=== PATIENT | female | born 1955 | race Caucasian/White ===

== ENCOUNTER 2018-02-26 00:51 | Inpatient (IN) | payer SELFPAY ==
[2018-02-26] MEDS ORDERED: Albuterol Sulfate 2.5 mg/3 ml Neb ONE (01:03)
[2018-02-26] MEDS ORDERED: Sodium Chloride For Inhalation 0.9% 3 ML NEB ONE (01:04)
[2018-02-26] MEDS ORDERED: Albuterol Sulfate 2.5 mg/0.5 ml Neb ONE (01:04)
[2018-02-26 01:30] LABS: pH, Arterial 7.08 (7.35-7.45)
[2018-02-26 01:31] LABS: Base Excess (BEa) 0.6 mEq/L (0 (+/-) 2.5); CO2 Tension 113.5 mmHg (35.0-45.0); Hematocrit-ABG 54.3 % (36.0-47.0); Hemoglobin (Hb) 14.5 g/dL (12.0-16.0); O2 Tension (PaO2) 123.1 mmHg (80.0-100.0)
[2018-02-26 01:31] LABS: Mean Corpuscular HGB CONC 28.7 g/dL (32.0-36.0); Mean Corpuscular Hemoglobin 24.3 pg (27.0-31.0); Mean Corpuscular Volume 84.8 fl (81.0-99.0); Mean Platelet Volume 8.6 fL (7.4-10.4); Platelet Count 194 thou/uL (130-400); RBC Distribution Width 18.8 % (11.5-14.5); Red Blood Cell (RBC) Count 6.16 mill/uL (4.20-5.40); White Blood Cell (WBC) Count 8.7 thou/uL (4.8-10.8)
[2018-02-26 01:32] LABS: ALV-art Gradient 439.025 (0-20); Analyzer IN Cardio ER; Calcium, Ionized 1.3 mmol/L (1.12-1.30); Puncture Site RRA
[2018-02-26 01:35] LABS: Bilirubin Moderate (Negative); Blood, Urine Moderate (Negative); Clarity CLOUDY (Clear); Glucose, Urine (Dipstick) Negative (Negative); Leukocyte Small (Negative); Nitrite Negative (Negative); Protein, Urine (Dipstick) 100 mg/dL (Neg-Trace); Specific Gravity, Urine 1.024 (1.002-1.036)
[2018-02-26 01:37] LABS: Bacteria/HPF 3+ HPF (None Seen); WBC/HPF 21-50 HPF (0-3)
[2018-02-26 01:39] LABS: Pathc Cast-AUWi Flag 10.61 (0-2.49)
[2018-02-26 01:39] LABS: Band 2 % (5-11); Eosinophils 2 % (0-10); Lymphocytes 23 % (21-51); MDiff Complete? YES; Monocytes 17 % (0-10); Neutrophil 56 % (42-75)
[2018-02-26 01:43] LABS: ALT (SGPT) Less than 7 U/L (8-55); AST (SGOT) 22 U/L (5-34); Albumin 3.8 g/dL (3.4-4.8); Alkaline Phosphatase 50 U/L (40-150); Anion Gap 14 mmol/L (10-20); BUN (Urea Nitrogen) 26 mg/dL (9.8-20.1); Bilirubin, Total 0.7 mg/dL (0.2-1.2); CK (CPK) 45 U/L (29-168); Calc. Creatinine Clearance 0 mL/min (70-130); Calcium 9.3 mg/dL (7.8-10.44); Carbon Dioxide 31 mmol/L (23-31); Chloride 101 mmol/L (98-107); Estimated GFR-MDRD 43; Glucose 130 mg/dL (80-115); Lipase 37 U/L (8-78); Potassium 3.9 mmol/L (3.5-5.1); Protein, Total 7.8 g/dL (6.0-8.3); Sodium 142 mmol/L (136-145)
[2018-02-26 01:46] LABS: CKMB 2.9 ng/mL (0-6.6); Troponin I 0.177 ng/mL (< 0.028)
[2018-02-26 01:51] LABS: Renal Epithelial 0-3 HPF (0-3)
[2018-02-26 01:53] LABS: Other Casts/LPF 4-6 WBC CASTS LPF (0-3 Hyaline)
[2018-02-26] MEDS ORDERED: fentaNYL Citrate/PF 2,000 MCG in Sodium Chloride 0.9% 60 ML IV SCH ×2 (02:00→04:00)
[2018-02-26] MEDS ORDERED: Furosemide 40 MG/4 ML VIAL ONE (02:14)
[2018-02-26 03:35] LABS: Base Excess (BEa) 1.6 mEq/L (0 (+/-) 2.5); CO2 Tension 51.5 mmHg (35.0-45.0); Hematocrit-ABG 46.2 % (36.0-47.0); Hemoglobin (Hb) 13.1 g/dL (12.0-16.0); O2 Tension (PaO2) 80.7 mmHg (80.0-100.0); pH, Arterial 7.35 (7.35-7.45)
[2018-02-26 03:36] LABS: ALV-art Gradient 279.725 (0-20); Calcium, Ionized 1.2 mmol/L (1.12-1.30); Puncture Site RRA
[2018-02-26] MEDS ORDERED: Morphine 4 MG/ML VIAL SLOW IVP PRN (03:47)
[2018-02-26] MEDS ORDERED: Propofol BOLUS 1,000 MG/100 ML VIAL IV PRN ×2 (03:47→04:00)
[2018-02-26] MEDS ORDERED: Lorazepam 2 MG/ML VIAL SLOW IVP PRN (03:47)
[2018-02-26] MEDS ORDERED: Fentanyl BOLUS 250 ML IVPB PRN ×2 (03:47→04:00)
[2018-02-26] MEDS ORDERED: Ventilator Sedation Protocol 1 EACH FS ONE (03:53)
[2018-02-26] MEDS ORDERED: Acetaminophen 500 MG TAB PER TUBE PRN (03:53)
[2018-02-26] MEDS ORDERED: CCU Electrolyte Replacement 1 EACH FS ONE (03:53)
[2018-02-26] MEDS ORDERED: Ondansetron HCl/PF 4 MG/2 ML Vial IVP PRN (03:53)
[2018-02-26] MEDS ORDERED: Potassium Phosphate 9 MMOL in Sodium Chloride 0.9% 100 ML IVPB PRN (03:59)
[2018-02-26] MEDS ORDERED: Magnesium Oxide 400 MG TAB PO PRN ×2 (03:59)
[2018-02-26] MEDS ORDERED: Potassium Chloride 20 MEQ TAB PO PRN (03:59)
[2018-02-26] MEDS ORDERED: Potassium Phosphate 12 MMOL in Sodium Chloride 0.9% 250 ML 250 ML IV PRN (03:59)
[2018-02-26] MEDS ORDERED: Potassium Phosphate 15 MMOL in Sodium Chloride 0.9% 250 ML 250 ML IV PRN (03:59)
[2018-02-26] MEDS ORDERED: Magnesium 2 GM/NS 0.9% 100 ML 2 GM in Premix Bag 1 BAG IVPB PRN (03:59)
[2018-02-26] MEDS ORDERED: Potassium Chloride 40 MEQ in Premix Bag 1 BAG IVPB PRN (03:59)
[2018-02-26] MEDS ORDERED: CCU ELECTROLYTE REPLACEMENT PROTOCOL FS PRN (03:59)
[2018-02-26] MEDS ORDERED: Nitroglycerin 2% Ointment 1 INCH/1 GM Packet TOP SCH (04:00)
[2018-02-26] MEDS: cefTRIAXone\\ROCEPHIN 2 GM in Sodium Chloride 0.9% 100 ML IVPB SCH (04:47)
[2018-02-26] MEDS: Furosemide 40 MG/4 ML VIAL SLOW IVP SCH ×2 (04:47→13:45)
[2018-02-26 07:21] LABS: Actual Bicarbonate (HCO3a) 28.9 mEq/L (22-26); Base Excess (BEa) 5.1 mEq/L (0 (+/-) 2.5); CO2 Tension 39.6 mmHg (35.0-45.0); Hematocrit-ABG 46.7 % (36.0-47.0); O2 Tension (PaO2) 70.9 mmHg (80.0-100.0); pH, Arterial 7.48 (7.35-7.45)
[2018-02-26 07:22] LABS: Calcium, Ionized 1.2 mmol/L (1.12-1.30); Hemoglobin (Hb) 13.6 g/dL (12.0-16.0)
[2018-02-26 07:23] LABS: Puncture Site LRA
--- NOTE | 2018-02-26 07:49 | HP ---
DATE OF ADMISSION: 02/26/2018 PRIMARY CARE PROVIDER: Patrick pittman. CHIEF COMPLAINT: Shortness of breath. HISTORY OF PRESENT ILLNESS: This is a 62-year-old female who presents to [facility] in transfer from [facility] with severe shortness of breath, requir ing BiPAP, noninvasive mechanical ventilation. The history is obtained after discussions with the ER attending as well as the patient's 2 sons at the bedside as the patient is currently on mechanical v entilation and unable to respond. The patient apparently had been experiencing increasing shortness of breath over the last several days; however, the sons report the patient was on home oxygen using a face mask, but the sons were unclear on how often and frequent the patient use the oxygen. 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 No specific history of recent fever, exposure history. Review of the record shows t hat EMS personnel arrived to find the patient covered in urine and feces with 70% O2 saturation on 15 liters of oxygen. The patient apparently was told she needed to be intubated at that time and was p laced on CPAP. The patient received subcutaneous Lovenox, Zofran, and 1 liter of intravenous normal saline and underwent evaluation in the [facility]. The patient was speaking shor t phrases of 1-3 words, but was alert and oriented. The patient underwent general evaluation with el evated D-dimer noted on initial exam. The patient was scheduled for CT of the chest; however, would not fit in the CT scanner due to morbid obesity. The patient was referred to [facility] for ventilation perfusion scan as initial concern for pulmonary embolus given the patient's overall body habitus and presentation. The patient received the Lovenox empirically as stated previously. In th e emergency room at [facility], the patient was markedly dyspneic with O2 saturations in the 70s with accessory muscle use. Initial ABG at [facility] showed a pH of 7.08 and a pCO2 of 113.5. Discussions were had with the patient regarding the need for intubation, at which point the patient decided to proceed with this procedure. The patient underwent intubation in the emergency ro om with a 7.0 endotracheal tube at 22 cm. The patient was continued on mechanical ventilation and re ferred to the Hospitalist Service for admission. PAST MEDICAL HISTORY: 1. Morbid obesity. 2. Question of obstructive sleep apnea. 3. Chronic hypoxic respiratory failure. 4. Question of chronic kidney disease, stage 2-3. PAST SURGICAL HISTORY: Reviewed and negative. CURRENT MEDICATIONS: According to the patient's son, she takes supplements, no prescription medicati on. ALLERGIES: No known drug allergies. FAMILY HISTORY: No inheritable diseases per family report. SOCIAL HISTORY: The patient resides in [place], [place]. 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 No current al cohol, tobacco, or illicit drug use. REVIEW OF SYSTEMS: Unobtainable as the patient is on current mechanical ventilation and sedated. PHYSICAL EXAMINATION: VITAL SIGNS: Currently, blood pressure 109/63, pulse 87, respiratory rate 16, temperature 96.1 degre es Fahrenheit, O2 saturation 94% on 80% FiO2, SIMV. GENERAL APPEARANCE: This is a morbidly obese female, on current mechanical ventilation, sedate, obtu nded. HEENT: Pupils are minimally reactive to light and accommodation. Extraocular muscles are intact. N o scleral icterus, no conjunctival injection. Nares patent. OP is clear with increased secretions a round the endotracheal tube. NECK: Supple. Landmarks are difficult to palpate. No JVD noted. No carotid bruits. No palpable m ass. CHEST: Diminished breath sounds in all lung giron. Coarse breath sounds with expiratory wheeze not ed. Faint crackles bilaterally. CARDIOVASCULAR: S1, S2 with distant heart sounds. No murmur, gallop, or rub. ABDOMEN: Morbidly obese with landmarks difficult to palpate. No gross mass appreciated. No rebound noted. EXTREMITIES: Tense edema of bilateral lower extremities to the knees. Pulses palpable distally at t he dorsalis pedis, posterior tibial, and popliteal arteries bilaterally. GENITOURINARY: Tolbert catheter in place with dark shelli urine. NEUROLOGIC: Obtunded, on current sedation and mechanical ventilation. PERTINENT LABORATORY AND X-RAY FINDINGS: Sodium 142, potassium 3.9, chloride 101, CO2 of 31, BUN 26, creatinine 1.26, estimated GFR of 43, glucose 130, lactic acid level 1.3, calcium 9.3, AST 22, ALT l ess than 7, alkaline phosphatase 50, total CK of 45. Troponin I 0.177. BNP 911. Albumin 3.8, lipas e 37. CBC showed a white blood cell count of 8.7, hemoglobin 15, hematocrit 52, platelet count 194 w ith normal differential. D-dimer 4.14. ABG dated 02/26/2018 at 1:22 a.m. showed pH of 7.08, pCO2 of 113.5, pO2 of 123, bicarbonate 33, and O2 saturation 97% on 100% FiO2, BiPAP mode. Urinalysis, posi tive for protein, moderate blood, moderate bilirubin with small leukocyte esterase. Urine microscopy showed 7-10 rbc's per high-power field, 21-50 wbc's per high-power field, 3+ bacteria noted. Portab le chest x-ray dated 02/26/2018 by my interpretation shows poor inspiratory effort with patchy infilt rates bilaterally concerning for edema. Rotated film. Poor quality. EKG dated 02/26/2018 by my int erpretation shows sinus mechanism with heart rates in the 90s. Attenuated R waves noted in the preco rdial leads. Right bundle-branch block pattern noted. Normal axis. No acute ST-T wave changes appr eciated. ASSESSMENT AND PLAN: 1. Acute on chronic hypercapnic respiratory failure. The patient will be admitted to the Critical C are Unit. We will continue mechanical ventilation with SIMV at FiO2 of 80%. Consult Pulmonary Criti jason Care Service in the a.m. Suspect multifactorial given the patient's severe morbid obesity and li nohemy chronic hypercapnia. Continue aggressive pulmonary supportive measures. Repeat ABG in the a.m. 2. Acute congestive heart failure exacerbation. Suspect multifactorial congestive heart failure giv en the patient's morbid obesity. Check 2D transthoracic echocardiogram in the a.m. Continue Lasix 4 0 mg IV b.i.d. Consult Cardiology Service in the a.m. for further evaluation. Continue aspirin 325 mg daily. 3. Acute kidney injury. We will continue to monitor serial creatinines. Avoid nephrotoxic agents a nd contrast media. Watch renal function closely in the context of ongoing diuretic therapy. 4. Demand ischemia. Suspect demand state in the context of current presentation and respiratory kathy lure. Lovenox was given initially in the emergency department. Continue to trend serial troponin I. Consult Cardiology Service in the a.m. 5. Morbid obesity. Turning protocol. Low air loss mattress. Consider dietitian consult when stabi lized. 6. Urinary tract infection. Suspected given urinalysis findings. Await final urine culture results . Initiate Rocephin 2 grams IV q.24 hours. 7. Prophylaxis. Sequential compression devices held due to bilateral lower extremity edema. Loveno x 40 mg subcutaneously daily. Pepcid 20 mg IV q.12 hours. Critical care unit sedation protocol. Cr itical care unit electrolyte replacement protocol. 8. Code status is FULL. Surrogate medical decision maker is the patient's son. Total critical care time is 45 minutes.
--- NOTE | 2018-02-26 07:51 | RAD ---
CHEST 1 VIEW: Date: 02/26/18 HISTORY: Respiratory failure. COMPARISON: Chest radiograph from same date. FINDINGS: Extensive perihilar opacities. Heart size is enlarged. Layering left effusion. Extensive perihilar op acities. IMPRESSION: Cardiomegaly with layering effusion and perihilar opacities may reflect edema, hemorrhage, or ARDS. POS: [facility]
[2018-02-26] MEDS ORDERED: Aspirin 325 MG TAB PO SCH (08:00)
[2018-02-26] MEDS: Propofol 1,000 MG/100 ML VIAL IV PRN ×5 (08:05→23:44)
[2018-02-26] MEDS: Aspirin 325 MG TAB PER TUBE SCH (08:05)
--- NOTE | 2018-02-26 08:10 | RAD ---
CHEST 1 VIEW: HISTORY: Emergency exam. Intubation. COMPARISON: Radiograph same day. FINDINGS: The patient is intubated with endotracheal tube tip below the clavicles. Enteric tube was placed wit h tip below the diaphragm but out of field of view. Extensive perihilar airspace opacities and peripheral opacities, somewhat worsened. Elevation of lef t hemidiaphragm. Cardiomegaly. IMPRESSION: 1. Endotracheal tube tip in good position. 2. Enteric tube tip below the diaphragm but out of the field of view. 3. Cardiomegaly. 4. Extensive hilar opacities and peripheral opacities suggesting edema, infection, or adult respirat ory distress syndrome. Followup recommended. 5. Elevated left hemidiaphragm. 6. Left basilar opacity may reflect focal infection. Malignancy cannot be excluded. POS: [facility]
--- NOTE | 2018-02-26 08:18 | RAD ---
PORTABLE CHEST: Date: 02/26/18 COMPARISON: Earlier exam same date. HISTORY: Respiratory failure, on mechanical ventilation. FINDINGS: Film technique is suboptimal. Heart size is enlarged. Patient is rotated on this examination. Endotra cheal tube and NG tubes appear to be in satisfactory position. Parenchymal lung changes are felt to b e fairly stable as compared to the prior exam. IMPRESSION: Essentially stable exam. POS: [facility]
[2018-02-26] MEDS ORDERED: Enoxaparin Sodium 40 MG/0.4 ML SYRINGE SC SCH (09:00)
[2018-02-26] MEDS ORDERED: Famotidine/PF 20 mg/2ml Vial SLOW IVP SCH (09:00)
[2018-02-26] MEDS ORDERED: Vancomycin HCl 1 GM in Premix Bag 1 BAG IVPB SCH (09:00)
[2018-02-26] MEDS ORDERED: Furosemide 40 MG/4 ML VIAL SLOW IVP SCH (09:00)
--- NOTE | 2018-02-26 10:02 | ULT ---
BILATERAL LOWER EXTREMITY DUPLEX EXAM: History: Bilateral lower extremity pain and edema. FINDINGS: Real-time color doppler evaluation of the right and left lower extremities were performed from groin to calf. This includes evaluation of the common femoral, superficial, profunda femoral, saphenous, po pliteal, and trifurcation veins. Exam is very limited due to patient's inability to cooperate in moving and body habitus. There are po rtions of the veins were not visualized including the mid and distal right superficial femoral vein a nd mid left superficial femoral vein. Augmentation cannot be performed and popliteal regions could no t be well evaluated due to inability to position the patient. There was flow demonstrated within the vessels without obvious DVT. IMPRESSION: Extremely limited examination. No definitive evidence of DVT of either lower extremity. POS: [facility]
[2018-02-26] MEDS: Famotidine 40 MG/4 ML VIAL SLOW IVP SCH ×2 (10:13→21:20)
--- NOTE | 2018-02-26 10:42 | CON ---
DATE OF CONSULTATION: 02/26/2018 Thirty minutes critical care time. REASON FOR CONSULTATION: Acute respiratory failure requiring mechanical ventilation. HISTORY OF PRESENT ILLNESS: This is a 62-year-old female who was transferred to this facility from [facility]. She had been on noninvasive ventilation there. I believe by the time she got here, she wa s still profusely hypercapnic and was subsequently intubated by the emergency room physician. What information I have is taken from reading the history and physical and the emergency room physici an's notes that the patient was intubated. There is no family available here to give history. From what I can discern, she is morbidly obese. She has sleep apnea, but does not wear her CPAP at h ome. I also got the impression that she has been intubated previously. PAST MEDICAL HISTORY: 1. Morbid obesity. 2. Obstructive sleep apnea. 3. Chronic kidney disease. PAST SURGICAL HISTORY: Negative. MEDICATIONS PRIOR TO ADMISSION: None. ALLERGIES: None. FAMILY MEDICAL HISTORY: Unremarkable. SOCIAL HISTORY: Apparently does not smoke, drink alcohol, does not use illicit drugs. REVIEW OF SYSTEMS: Unobtainable as patient is currently on mechanical ventilation. PHYSICAL EXAMINATION: VITAL SIGNS: Weight looks to be at least 600 pounds, height 5 foot 4, temperature 95.9, pulse 68, bl ood pressure 124/82, O2 sat 100%. GENERAL: She is a morbidly obese female who is intubated. She is awake and tries to mouth around th e endotracheal tube. HEENT: Pupils react. Sclerae icteric. Oropharynx class 4 Mallampati airway. NECK: No adenopathy, no JVD. LUNGS: Coarse breath sounds bilaterally. CARDIOVASCULAR: S1, S2 distant. ABDOMEN: Morbidly obese. EXTREMITIES: Multiple pannus folds, severe chronic stasis changes. LABORATORY DATA: White blood cell count 8.7, hematocrit 52, platelet count 194. PH 7.48, pCO2 of 39 , pO2 70 on SIMV rate 20, tidal volume 5, PEEP 5, FiO2 60%. Sodium 142, potassium 3.9, chloride 101, CO2 31, BUN 26, creatinine 1.2, glucose 130. BMP 911. Troponin 0.18. Chest x-ray shows poor penetration. She has cardiomegaly, probably a grossly enlarged right ventricl e. She has pulmonary edema bilaterally. ASSESSMENT: 1. Likely biventricular congestive heart failure. 2. Pulmonary edema. 3. Morbid obesity. 4. Sleep apnea. 5. Question of concurrent pneumonia. PLAN: 1. I have reviewed the orders and agree with aggressive diuresis. 2. Continue mechanical ventilation at current settings and follow serial ABGs. 3. Agree with empiric antibiotics. 4. May ultimately need a tracheostomy since she is noncompliant with noninvasive ventilation.
[2018-02-26] MEDS ORDERED: VANCOMYCIN IVPB PRN (12:49)
[2018-02-26 15:05] LABS: Platelet Count 143 thou/uL (130-400)
[2018-02-26] MEDS: Heparin 10,000 UNITS/ 10 ML VIAL SLOW IVP SCH (16:14)
[2018-02-26] MEDS: Heparin 25,000 units/D5W 500 ML IVPB SCH (16:15)
--- NOTE | 2018-02-26 17:25 | CON ---
DATE OF CONSULTATION: 02/26/2018 CARDIOLOGY CONSULTATION REASON FOR CONSULTATION: Heart failure. HISTORY OF PRESENT ILLNESS: Ms. Sauceda is a 62-year-old white female who comes to the hospital for r espiratory insufficiency. She was at the [facility] for a few days with noninvasive ventilat ion, but became even worse with her hypercapnia and subsequently had to be intubated and transferred here emergently. She currently remains sedated and intubated. Her son is in the room. He tells me he has had this same scenario happened several times in the past and has always been blamed on her mo rbid obesity. She has a history of severe obstructive sleep apnea and apparently there are some comp liance issues with her CPAP. Son tells me that she has in fact been intubated in the past. PAST MEDICAL HISTORY: 1. Morbid obesity, BMI of 103. This is with a calculated weight of about 600 pounds. She is 5 feet and 4 inches. Son tells me she has been gaining weight in the last 6-8 months. 2. Severe obstructive sleep apnea. 3. Chronic kidney disease. PAST SURGICAL HISTORY: Negative. OUTPATIENT MEDICATIONS: None. ALLERGIES: No known drug allergies. FAMILY HISTORY: Noncontributory. SOCIAL HISTORY: No alcohol, tobacco or drugs per chart. REVIEW OF SYSTEMS: Unobtainable as patient is sedated and intubated. PHYSICAL EXAMINATION: VITAL SIGNS: Temperature 98.6, pulse 60, respiratory rate 20, satting 92% on 50% FiO2, blood pressur e 126/74. GENERAL: Sedated and intubated, she is morbidly obese. HEENT: Normocephalic. NECK: Short, unable to evaluate for JVD. LUNGS: Coarse anteriorly, but distant heart sounds. CARDIOVASCULAR: Distant heart sounds. S1 and S2. Cannot appreciate any murmurs. ABDOMEN: Prominent. Cannot hear any bowel sounds, but most likely due to her weight. EXTREMITIES: There are skin changes from chronic edema as well as weight. She has 2-3+ lower extrem ity edema. SKIN: Warm and dry. LABORATORY DATA: Laboratory work was reviewed. White count of 8.7, hemoglobin of 15, hematocrit 52, and platelet count of 194. Coags were reviewed. D-dimer was extremely high at 4.1. ABGs were revi ewed. Chemistry was reviewed. BUN 26, creatinine 1.2 with GFR 43. Troponin has been 0.17, 0.17, 0. 18 and BNP of 911. Albumin was 3.8. UA showed moderate blood, moderate bilirubin, 21-50 white cells , 7-10 red cells, and 3+ bacteria. IMAGING DATA: Echocardiogram was reviewed, EF was hyperdynamic, but was D-shaped left ventricle on b oth systole and diastole consistent with right ventricular volume and pressure overload. Her right v entricle was severely dilated with reduced RV systolic function. However, the pressures were not ter ribly high at 45 mmHg. There was moderate PI as well. Chest x-ray was reviewed. ASSESSMENT: 1. Acute on chronic diastolic heart failure. 2. Most likely chronic right ventricular dysfunction. 3. Cannot exclude acute pulmonary embolism. 4. Morbid obesity with body mass index of 103. 5. Acute hypoxic hypercapnic respiratory insufficiency requiring mechanical ventilation. 6. Severe sleep apnea, noncompliant. PLAN: 1. Agree with IV diuresis. She has a lot of edema most likely from RV failure from her severe sleep apnea and obesity. At this time, I cannot exclude an acute pulmonary embolism as the cause of her d ecompensation and I discussed this with Dr. Rice and diagnostic yield of CT scan or V/Q scan will be extremely low and may not even be doable secondary to her weight, so we would have to just start f ull anticoagulation in case this were to be the problem. 2. We will start heparin drip per PE protocol. 3. Patient is severely ill. would not be unexpected. Thank you for letting us to participate in the care of your patient. We will follow. Over 45 minutes of critical care were delivered at bedside.
[2018-02-26 21:57] LABS: PTT 242.5 SEC (22.9-36.1)
[2018-02-27] MEDS: Propofol 1,000 MG/100 ML VIAL IV PRN ×5 (02:41→21:45)
[2018-02-27] MEDS: Lorazepam 2 MG/ML VIAL SLOW IVP PRN ×4 (02:41→21:45)
[2018-02-27] MEDS: cefTRIAXone\\ROCEPHIN 2 GM in Sodium Chloride 0.9% 100 ML IVPB SCH (04:15)
[2018-02-27 05:19] LABS: ALT (SGPT) Less than 7 U/L (8-55); AST (SGOT) 18 U/L (5-34); Albumin 2.7 g/dL (3.4-4.8); Alkaline Phosphatase 43 U/L (40-150); Anion Gap 17 mmol/L (10-20); BUN (Urea Nitrogen) 27 mg/dL (9.8-20.1); Bilirubin, Total 1.2 mg/dL (0.2-1.2); Calc. Creatinine Clearance 180 mL/min (70-130); Calcium 8.6 mg/dL (7.8-10.44); Carbon Dioxide 26 mmol/L (23-31); Chloride 103 mmol/L (98-107); Estimated GFR-MDRD 38; Glucose 81 mg/dL (80-115); Potassium 2.9 mmol/L (3.5-5.1); Protein, Total 5.7 g/dL (6.0-8.3); Sodium 143 mmol/L (136-145)
[2018-02-27] MEDS: Furosemide 40 MG/4 ML VIAL SLOW IVP SCH ×2 (05:23→13:11)
[2018-02-27] MEDS: Potassium Chloride 40 MEQ in Sodium Chloride 0.9% 250 ML 250 ML IVPB PRN (06:13)
[2018-02-27 06:24] LABS: Anisocytosis SLIGHT = 6-15 cells (100X) (0-5/hpf); Band 11 % (5-11); Eosinophils 6 % (0-10); Hemoglobin 13.3 g/dL (12.0-16.0); Lymphocytes 10 % (21-51); MDiff Complete? YES; Mean Corpuscular HGB CONC 29.7 g/dL (32.0-36.0); Mean Corpuscular Hemoglobin 23.7 pg (27.0-31.0); Mean Corpuscular Volume 79.8 fl (81.0-99.0); Mean Platelet Volume 9.7 fL (7.4-10.4); Monocytes 5 % (0-10); Neutrophil 68 % (42-75); PLT Morphology Comment Appears Adequate; Platelet Count 156 thou/uL (130-400); Polychromasia SLIGHT = 2-3 cells (100X) (0-2/hpf); RBC Distribution Width 18.4 % (11.5-14.5); Red Blood Cell (RBC) Count 5.61 mill/uL (4.20-5.40)
[2018-02-27 06:59] LABS: PTT 241.8 SEC (22.9-36.1)
[2018-02-27 07:47] LABS: Actual Bicarbonate (HCO3a) 27.5 mEq/L (22-26); Base Excess (BEa) 5.1 mEq/L (0 (+/-) 2.5); CO2 Tension 33.6 mmHg (35.0-45.0); Hematocrit-ABG 45.1 % (36.0-47.0); Hemoglobin (Hb) 13.8 g/dL (12.0-16.0); O2 Tension (PaO2) 60.6 mmHg (80.0-100.0); pH, Arterial 7.53 (7.35-7.45)
--- NOTE | 2018-02-27 07:48 | PRG ---
DATE OF SERVICE: 02/27/2018 Thirty-five minutes critical care time. The patient remains intubated on mechanical ventilation. She is sedated on propofol. PHYSICAL EXAMINATION: VITAL SIGNS: Temperature is 97.9 with no fever overnight, pulse 55, blood pressure 163/89. 24 hour intake 2017, output 1335, weight is estimated 600 pounds. HEENT: Unremarkable. NECK: No JVD. LUNGS: Distant breath sounds. CARDIAC: S1 and S2 regular, bradycardic. ABDOMEN: Soft, morbidly obese. EXTREMITIES: Edematous throughout. LABORATORY DATA: White blood cell count 8, hematocrit 44.8, platelet count 156. PTT 241.8. Sodium 143, potassium 2.9, chloride 103, CO2 26, BUN 27, creatinine 1.4, glucose 81. BNP 409. ASSESSMENT: 1. Morbid obesity. 2. Obstructive sleep apnea/obesity hypoventilation syndrome. 3. Acute on chronic respiratory failure. 4. Elevated pulmonary artery pressures on echocardiogram - discussed with Dr. Lubin. He is worried about pulmonary embolism. We all understand that she cannot be imaged given her size. Of note, bebeto jasmine has negative Doppler scan of the lower extremities. I feel most likely the dilated right ventricul ar findings are due to untreated obstructive sleep apnea. RECOMMENDATIONS: 1. She is not weanable at this time. 2. She is currently on antibiotics, but the indication is not completely clear other than possible p neumonitis which is difficult to tell on her x-ray given her size. 3. Speak with family about possible tracheostomy next week. 4. Continuing anticoagulation per Cardiology. Withhold any long-acting anticoagulants in anticipati on of a trach.
[2018-02-27 07:50] LABS: Calcium, Ionized 1.1 mmol/L (1.12-1.30); Puncture Site LR
[2018-02-27] MEDS: Famotidine 40 MG/4 ML VIAL SLOW IVP SCH ×2 (08:45→20:59)
--- NOTE | 2018-02-27 08:47 | RAD ---
SEMIUPRIGHT PORTABLE CHEST 1 VIEW: HISTORY: A 62-year-old female with a history of respiratory failure on mechanical ventilation. FINDINGS: NG tube and endotracheal tube remain in place. Marked large body habitus lowers the sensitivity of t his study. There is cardiomegaly. There is bilateral vascular congestion and patchy bilateral inter stitial and alveolar parenchymal changes noted bilaterally, somewhat more marked than on the prior st udy. IMPRESSION: Bilateral vascular congestion and some slightly more prominent interstitial and nodular alveolar opac ity changes bilaterally, particularly in the perihilar regions. Stable cardiomegaly. Stable life guerrero pport tubes. Continued short-term followup. POS: [facility]
--- NOTE | 2018-02-27 10:48 | PDOC.CTH ---
Cardiology Progress Note - Subjective She remains intubated and sedated. - Objective Vital Signs Temp Pulse Resp BP 02/27/18 07:36 58 L 144/75 H 02/27/18 06:00 20 02/27/18 04:00 97.9 F 20 02/27/18 02:00 20 02/27/18 00:00 97.8 F 20 Admit Weight 600 lb Weight 600 lb 02/26/18 02/27/18 02/28/18 06:59 06:59 06:59 Intake Total 100 2017.0 Output Total 1825 1335 Balance -1725 682.0 - Physical Examination General/Neuro: other: (Sedated intubated.) Neck: other: Lungs: other: (distant breath sounds. ) Heart: RRR Abdomen: NT/ND Extremities: + edema B (3+) - Telemetry Telemetry Rhythm: NSR - Labs Result Diagrams: 02/27/18 04:11 02/27/18 04:11 Troponin/CKMB CK-MB (CK-2) 2.9 ng/mL (0-6.6) 02/26/18 01:05 Troponin I 0.180 ng/mL (< 0.028) H 02/26/18 06:57 - Assessment/Plan 1. Acute hypoxic hypercapnic respiratory insufficiency 2. Acute on chronic RV dysfunction. 3. Acute on chronic diastolic heart failure 4. Morbid obesity, BMI 103 5. Pickwickian syndrome PLAN: - Cannot exclude acute PE as the cause however her RV seems to be chronically dilated and her RV free wall is not hypokinetic as I would expect in an acute elevation of right sided pressures from a PE. Most likely this a chronic RV dysfunction from her weight and severe CAROL. - Will plan on continuing full anticoagulation for a total of 48 hrs and will repeat echo and if unchanged will discontinue Heparin. - Replace K. - Continue IV lasix.
[2018-02-27] MEDS: Aspirin 325 MG TAB PER TUBE SCH (12:48)
[2018-02-27] MEDS: Heparin 25,000 units/D5W 500 ML IVPB SCH (12:51)
--- NOTE | 2018-02-27 13:36 | PDOC.PN ---
- Subjective Encounter Start Date: 02/27/18 Encounter Start Time: 07:00 -: non-verbal Pt seen for followup re: acute on chronic respiratory failure. Intubated, unable to obtain ROS. - Objective Resuscitation Status: Resuscitation Status FULL:Full Resuscitation MAR Reviewed: Yes Vital Signs & Weight: Vital Signs (12 hours) Temp Pulse Resp BP 02/27/18 12:44 53 L 112/64 02/27/18 10:45 55 L 135/78 02/27/18 07:36 58 L 144/75 H 02/27/18 06:00 20 02/27/18 04:00 97.9 F 20 02/27/18 02:00 20 Weight Admit Weight 600 lb Weight 600 lb Most Recent Monitor Data Heart Rate from ECG 58 NIBP 139/81 NIBP BP-Mean 96 Respiration from ECG 16 SpO2 97 I&O: 02/26/18 02/27/18 02/28/18 06:59 06:59 06:59 Intake Total 100 2017.0 Output Total 1825 1335 Balance -1725 682.0 Result Diagrams: 02/27/18 04:11 02/27/18 04:11 Additional Labs: Accuchecks 02/27/18 08:35 POC Glucose 77 EKG Reviewed by me: Yes (Tele: NSR) Phys Exam - Physical Examination Morbid obesity HEENT: moist MMs ETT Neck: no nodes Respiratory: no wheezing, no rales, no rhonchi, clear to auscultation bilateral Cardiovascular: RRR, no rub Gastrointestinal: soft, non-tender, positive bowel sounds distention Musculoskeletal: edema present Neurological: moves all 4 limbs Deviation from normal: Unable to assess mood, affect or orientation to person, place or time Deviation from normal: lymphedema lower extremities Dx/Plan (1) Acute and chronic respiratory failure Code(s): J96.20 - ACUTE AND CHR RESP FAILURE, UNSP W HYPOXIA OR HYPERCAPNIA Status: Acute Qualifiers: Respiratory failure complication: hypercapnia Qualified Code(s): J96.22 - Acute and chronic respiratory failure with hypercapnia Comment: Intubated, mechanically ventilated. (2) Hypokalemia Code(s): E87.6 - HYPOKALEMIA Status: Acute Comment: Replace potassium (3) Acute on chronic diastolic (congestive) heart failure Code(s): I50.33 - ACUTE ON CHRONIC DIASTOLIC (CONGESTIVE) HEART FAILURE Status : Acute Comment: continue furosemide (4) Pulmonary embolism Code(s): I26.99 - OTHER PULMONARY EMBOLISM WITHOUT ACUTE COR PULMONALE Status : Suspected Comment: pt on heparin drip (5) Morbid obesity with BMI of 70 and over, adult Code(s): E66.01 - MORBID (SEVERE) OBESITY DUE TO EXCESS CALORIES; Z68.45 - BODY MASS INDEX (BMI) 70 OR GREATER, ADULT Status: Chronic (6) Pickwickian syndrome Code(s): E66.2 - MORBID (SEVERE) OBESITY WITH ALVEOLAR HYPOVENTILATION Status : Chronic - Plan * . Review of Systems - Medications/Allergies Allergies/Adverse Reactions: Allergies Allergy/AdvReac Type Severity Reaction Status Date / Time No Known Drug Allergies Allergy Unverified 02/26/18 01:50 Medications: Current Medications Acetaminophen (Tylenol) 1,000 mg PER TUBE Q6H PRN PRN Reason: Headache/Fever or Mild Pain Aspirin (Aspirin) 325 mg PER TUBE DAILY [facility] Last Admin: 02/27/18 12:48 Dose: 325 mg Clonidine (Catapres) 0.1 mg PO Q4H PRN PRN Reason: Systolic BP > 180 Famotidine (Pepcid) 20 mg SLOW IVP Q12HR [facility] Last Admin: 02/27/18 08:45 Dose: 20 mg Furosemide (Lasix) 40 mg SLOW IVP 0600,1400 [facility] Last Admin: 02/27/18 13:11 Dose: 40 mg Heparin Sodium (Porcine) (Heparin 1,000 Units/Ml (10 Ml)) 0 units SLOW IVP [facility] PRN Reason: Protocol Last Admin: 02/26/18 16:14 Dose: 10,000 unit Hydralazine HCl (Apresoline) 10 mg SLOW IVP Q4H PRN PRN Reason: Systolic BP > 180 Ceftriaxone Sodium 2 gm/ (Sodium Chloride) 100 mls @ 200 mls/hr IVPB Q24HR [facility] Last Admin: 02/27/18 04:15 Dose: 100 mls Potassium Chloride 40 meq/ (Sodium Chloride) 270 mls @ 135 mls/hr IVPB ASDIR PRN PRN Reason: FOR SERUM K+ 2.5 - 3.5 Last Admin: 02/27/18 06:13 Dose: 270 mls Potassium Chloride 40 meq/ (Device) 100 mls @ 50 mls/hr IVPB ASDIR PRN PRN Reason: FOR SERUM K+ 2.5 - 3.5 Magnesium Sulfate 1 gm/ Sodium (Chloride) 102 mls @ 102 mls/hr IV PRN PRN PRN Reason: MAG LEVEL 1.4 - 2.0 Magnesium Sulfate 2 gm/ Device 100 mls @ 100 mls/hr IVPB ASDIR PRN PRN Reason: MAGNESIUM < 1.4 Potassium Phosphate 9 mmol/ (Sodium Chloride) 103 mls @ 25.75 mls/hr IVPB ASDIR PRN PRN Reason: Phosphate 1.0-1.8 Potassium Phosphate 12 mmol/ (Sodium Chloride) 254 mls @ 63.5 mls/hr IV ASDIR PRN PRN Reason: Serum phosphate 0.5-0.9 Potassium Phosphate 15 mmol/ (Sodium Chloride) 255 mls @ 63.75 mls/hr IV ASDIR PRN PRN Reason: Serum Phos < 0.5 Fentanyl Citrate 2,000 mcg/ (Sodium Chloride) 100 mls @ 0 mls/hr IV INF [facility]; Per Protocol PRN Reason: Protocol Stop: 03/28/18 04:00 Fentanyl Citrate (Fentanyl Bolus) 250 mls @ 0 mls/hr IVPB PRN PRN; As Directed PRN Reason: Breakthrough pain/agitation Stop: 03/28/18 04:00 Vancomycin HCl 2 gm/ Sodium (Chloride) 500 mls @ 250 mls/hr IVPB 0200,1400 [facility] Last Admin: 02/27/18 01:47 Dose: 500 mls Heparin Sodium/Dextrose (Heparin 25,000 Units/D5w 500 Ml) 500 mls @ 0 mls/hr IVPB INF [facility]; Per Protocol PRN Reason: Protocol Last Admin: 02/27/18 12:51 Dose: 500 mls Lorazepam (Ativan) 2 mg SLOW IVP Q1H PRN PRN Reason: Breakthrough agitation Stop: 03/28/18 04:00 Last Admin: 02/27/18 13:01 Dose: 2 mg Magnesium Oxide (Magnesium Oxide) 400 mg PO BIDPRN PRN PRN Reason: FOR SERUM MAG 1.4 - 2.0 Magnesium Oxide (Magnesium Oxide) 800 mg PO PRN PRN PRN Reason: FOR SERUM MAG < 1.4 Miscellaneous Medication (Phos-Nak) 1 pkt PO TIDPRN PRN PRN Reason: FOR PHOS LEVEL 1.0 - 1.8 Miscellaneous Medication (Phos-Nak) 2 pkt PO TIDPRN PRN PRN Reason: FOR PHOS LEVEL 0.5 - 1.0 Miscellaneous Medication (Pharmacy To Dose) 0 each IVPB PRN PRN PRN Reason: VANC Morphine Sulfate (Morphine) 2 mg SLOW IVP Q1H PRN PRN Reason: breakthrough pain/agitation Stop: 03/28/18 04:00 Ondansetron HCl (Zofran Odt) 4 mg PO Q6H PRN PRN Reason: Nausea/Vomiting Ondansetron HCl (Zofran) 4 mg IVP Q6H PRN PRN Reason: Nausea/Vomiting Potassium Chloride (K-Dur) 40 meq PO ASDIR PRN PRN Reason: FOR SERUM K+ 2.5 - 3.5 Potassium Chloride (Klor-Con) 40 meq PER TUBE ASDIR PRN PRN Reason: FOR SERUM K+ 2.5-3.5 Propofol (Diprivan) 1,000 mg IV INF PRN; Protocol PRN Reason: TO ACHIEVE GOAL RASS Stop: 03/28/18 04:00 Last Admin: 02/27/18 12:49 Dose: 1,000 mg Propofol (Diprivan Bolus) 20 mg IV Q5MIN PRN PRN Reason: BREAKTHROUGH AGITATION Stop: 03/28/18 04:00 Sodium Chloride (Flush - Normal Saline) 10 ml IVF Q12HR [facility] Last Admin: 02/27/18 09:37 Dose: 10 ml Sodium Chloride (Flush - Normal Saline) 10 ml IVF PRN PRN PRN Reason: Saline Flush
[2018-02-27 15:27] LABS: Potassium 3.7 mmol/L (3.5-5.1)
[2018-02-27] MEDS: Heparin 10,000 UNITS/ 10 ML VIAL SLOW IVP SCH ×2 (16:35→23:23)
[2018-02-27 21:50] LABS: PTT Greater than 250.0 SEC (22.9-36.1)
[2018-02-28] MEDS: Propofol 1,000 MG/100 ML VIAL IV PRN ×5 (01:47→22:54)
[2018-02-28] MEDS: cefTRIAXone\\ROCEPHIN 2 GM in Sodium Chloride 0.9% 100 ML IVPB SCH (04:23)
[2018-02-28 05:12] LABS: Band 8 % (5-11); Eosinophils 6 % (0-10); Hemoglobin 13.4 g/dL (12.0-16.0); Lymphocytes 7 % (21-51); MDiff Complete? YES; Mean Corpuscular HGB CONC 30.1 g/dL (32.0-36.0); Mean Corpuscular Hemoglobin 24.3 pg (27.0-31.0); Mean Corpuscular Volume 80.7 fl (81.0-99.0); Monocytes 16 % (0-10); Neutrophil 63 % (42-75); Platelet Count 137 thou/uL (130-400); RBC Distribution Width 18.6 % (11.5-14.5); White Blood Cell (WBC) Count 6.3 thou/uL (4.8-10.8)
[2018-02-28 05:15] LABS: Anion Gap 12 mmol/L (10-20); BUN (Urea Nitrogen) 26 mg/dL (9.8-20.1); Calc. Creatinine Clearance 175 mL/min (70-130); Calcium 8.2 mg/dL (7.8-10.44); Carbon Dioxide 31 mmol/L (23-31); Chloride 100 mmol/L (98-107); Estimated GFR-MDRD 37; Glucose 144 mg/dL (80-115); Sodium 140 mmol/L (136-145)
[2018-02-28] MEDS: Furosemide 40 MG/4 ML VIAL SLOW IVP SCH ×2 (05:20→14:10)
[2018-02-28] MEDS: Heparin 25,000 units/D5W 500 ML IVPB SCH ×2 (05:22→22:54)
[2018-02-28 05:24] LABS: Potassium 2.8 mmol/L (3.5-5.1)
--- NOTE | 2018-02-28 06:12 | PRG ---
DATE OF SERVICE: 02/28/2018 SERVICE: Pulmonary Medicine INTERVAL HISTORY: The patient is doing fine from a respiratory standpoint. She is on mechanical ventilation. She cannot provide additional elements of the history. There are no significant overnight events. PHYSICAL EXAMINATION: VITAL SIGNS: Afebrile, pulse 63, blood pressure 120/75, respirations 16, saturation 98% on 40% FiO2 and a PEEP of 5. GENERAL: Patient is intubated and sedated. HEENT: Normocephalic, atraumatic. Sclerae are white, conjunctivae pink. Oral mucosa is moist without lesions. LUNGS: Decent air entry. Rhonchi are present. There is no prolonged expiratory phase or wheezing present. HEART: Normal rate, regular. ABDOMEN: Soft, nontender, nondistended. Bowel sounds are positive. MUSCULOSKELETAL: No cyanosis or clubbing. There is diffuse 2+ edema throughout. GENITOURINARY: Tolbert catheter in place. NEUROLOGIC: Grossly nonfocal. LABORATORY DATA: WBC 6.3, hemoglobin 13.4, platelets 137,000. PTT 60.7. PH 7.53, pCO2 33, pO2 61. She was on a rate of 20 at that time. Potassium 2.8, creatinine 1.45. This is gently up trending. Bicarbonate is increased to 31. Basic metabolic profile is otherwise unremarkable. Urinalysis is positive for a bilirubin, and white blood cells. Blood cultures x2 and urine culture unremarkable. IMAGING: Chest x-ray demonstrates rotation. That being said, there appears to be enlarged cardiac silhouette. There is enteric catheter coursing midline below the level of the diaphragm. I cannot see where the tip terminates. Endotracheal tube is roughly 5 cm above the level of the mark. I cannot see any acute cardiopulmonary abnormality, though she has the appearance of a fluffy infiltrates throughout bilateral lungs. This could represent soft tissue attenuation, however. ASSESSMENT: 1. Acute on chronic hypoxic and hypercapnic respiratory failure. 2. Obesity hypoventilation syndrome. 3. Obstructive sleep apnea. 4. Right ventricular heart strain. PLAN: We will continue to gently diurese her as tolerated through time. She is empirically being treated for a PE because we truthfully cannot get any diagnostic studies on her to confirm or refute this. I will decrease her rate ever so slightly and increase her pressure support in case she wants to take a breath on her own. We will minimize sedation as tolerated. I could not imagine that this patient will make it through this hospitalization without a tracheostomy. That being said, we will make efforts at weaning her through the weekend. Potassium of 2.8 will be replaced. We will check a magnesium and phosphorus tomorrow morning. Critical care time: 30 minutes. CHELI
[2018-02-28] MEDS ORDERED: Magnesium Sulfate 4 GM in Sodium Chloride 0.9% 250 ML 250 ML IVPB SCH (06:15)
[2018-02-28] MEDS: Potassium Chloride 40 MEQ in Sodium Chloride 0.9% 250 ML 250 ML IVPB PRN (06:18)
[2018-02-28 06:20] LABS: PTT Greater than 250.0 SEC (22.9-36.1)
[2018-02-28 07:11] LABS: PTT 128.3 SEC (22.9-36.1)
[2018-02-28 07:42] LABS: Actual Bicarbonate (HCO3a) 30.3 mEq/L (22-26); Base Excess (BEa) 4.9 mEq/L (0 (+/-) 2.5); CO2 Tension 47.6 mmHg (35.0-45.0); Calcium, Ionized 1.2 mmol/L (1.12-1.30); Hematocrit-ABG 48.1 % (36.0-47.0); Hemoglobin (Hb) 14.2 g/dL (12.0-16.0); O2 Tension (PaO2) 74.9 mmHg (80.0-100.0); Puncture Site RRA; pH, Arterial 7.42 (7.35-7.45)
--- NOTE | 2018-02-28 08:19 | RAD ---
PORTABLE CHEST: DATE: 02/28/18. PROVIDED CLINICAL HISTORY: Respiratory insufficiency. FINDINGS: Evaluation is limited by patient body habitus. Significant interval change with respect to the prior examination is not apparent. IMPRESSION: As above. POS: MICHELE
[2018-02-28] MEDS: Famotidine 40 MG/4 ML VIAL SLOW IVP SCH ×2 (09:30→20:28)
[2018-02-28] MEDS: Aspirin 325 MG TAB PER TUBE SCH (09:30)
[2018-02-28] MEDS: Lorazepam 2 MG/ML VIAL SLOW IVP PRN (09:42)
--- NOTE | 2018-02-28 12:55 | PDOC.PN ---
- Subjective Encounter Start Date: 02/28/18 Encounter Start Time: 08:00 Pt seen for followup re: acute on chronic respiratory failure. Intubated, unable to complete ROS. - Objective Resuscitation Status: Resuscitation Status FULL:Full Resuscitation MAR Reviewed: Yes Vital Signs & Weight: Vital Signs (12 hours) Temp Pulse Resp Pulse Ox 02/28/18 10:20 90 02/28/18 10:00 15 02/28/18 08:00 15 02/28/18 07:31 97.5 F L 85 18 95 02/28/18 07:20 85 02/28/18 07:00 97.5 F L 02/28/18 06:00 15 02/28/18 04:00 97.8 F 16 02/28/18 02:00 16 Weight Admit Weight 600 lb Weight 600 lb Most Recent Monitor Data Heart Rate from ECG 83 NIBP 127/79 NIBP BP-Mean 95 Respiration from ECG 22 SpO2 97 I&O: 02/27/18 02/28/18 03/01/18 06:59 06:59 06:59 Intake Total 2017.0 2307 Output Total 1335 2555 920 Balance 682.0 -248 -920 Result Diagrams: 02/28/18 04:30 02/28/18 04:30 EKG Reviewed by me: Yes (Tele: NSR) Phys Exam - Physical Examination Morbid obesity HEENT: moist MMs ETT Neck: no nodes, supple, full ROM Trachea midline Respiratory: no wheezing, no rales, no rhonchi, clear to auscultation bilateral Cardiovascular: RRR, no rub Gastrointestinal: soft, non-tender, positive bowel sounds distention Musculoskeletal: edema present Neurological: moves all 4 limbs Deviation from normal: Unable to assess Dx/Plan (1) Acute and chronic respiratory failure Code(s): J96.20 - ACUTE AND CHR RESP FAILURE, UNSP W HYPOXIA OR HYPERCAPNIA Status: Acute Qualifiers: Respiratory failure complication: hypercapnia Qualified Code(s): J96.22 - Acute and chronic respiratory failure with hypercapnia Comment: Intubated, mechanically ventilated. PCCM following (2) Hypokalemia Code(s): E87.6 - HYPOKALEMIA Status: Acute Comment: On electrolyte replacement protocol (3) Acute on chronic diastolic (congestive) heart failure Code(s): I50.33 - ACUTE ON CHRONIC DIASTOLIC (CONGESTIVE) HEART FAILURE Status : Acute Comment: continue furosemide (4) Pulmonary embolism Code(s): I26.99 - OTHER PULMONARY EMBOLISM WITHOUT ACUTE COR PULMONALE Status : Suspected Comment: pt on heparin drip for suspected PE. (5) Morbid obesity with BMI of 70 and over, adult Code(s): E66.01 - MORBID (SEVERE) OBESITY DUE TO EXCESS CALORIES; Z68.45 - BODY MASS INDEX (BMI) 70 OR GREATER, ADULT Status: Chronic (6) Pickwickian syndrome Code(s): E66.2 - MORBID (SEVERE) OBESITY WITH ALVEOLAR HYPOVENTILATION Status : Chronic - Plan * . Review of Systems - Medications/Allergies Allergies/Adverse Reactions: Allergies Allergy/AdvReac Type Severity Reaction Status Date / Time No Known Drug Allergies Allergy Unverified 02/26/18 01:50 Medications: Current Medications Acetaminophen (Tylenol) 1,000 mg PER TUBE Q6H PRN PRN Reason: Headache/Fever or Mild Pain Aspirin (Aspirin) 325 mg PER TUBE DAILY [facility] Last Admin: 02/28/18 09:30 Dose: 325 mg Clonidine (Catapres) 0.1 mg PO Q4H PRN PRN Reason: Systolic BP > 180 Famotidine (Pepcid) 20 mg SLOW IVP Q12HR [facility] Last Admin: 02/28/18 09:30 Dose: 20 mg Furosemide (Lasix) 40 mg SLOW IVP 0600,1400 [facility] Last Admin: 02/28/18 05:20 Dose: 40 mg Heparin Sodium (Porcine) (Heparin 1,000 Units/Ml (10 Ml)) 0 units SLOW IVP [facility] PRN Reason: Protocol Last Admin: 02/27/18 23:23 Dose: 8,160 unit Hydralazine HCl (Apresoline) 10 mg SLOW IVP Q4H PRN PRN Reason: Systolic BP > 180 Ceftriaxone Sodium 2 gm/ (Sodium Chloride) 100 mls @ 200 mls/hr IVPB Q24HR [facility] Last Admin: 02/28/18 04:23 Dose: 100 mls Potassium Chloride 40 meq/ (Sodium Chloride) 270 mls @ 135 mls/hr IVPB ASDIR PRN PRN Reason: FOR SERUM K+ 2.5 - 3.5 Last Admin: 02/28/18 06:18 Dose: 270 mls Potassium Chloride 40 meq/ (Device) 100 mls @ 50 mls/hr IVPB ASDIR PRN PRN Reason: FOR SERUM K+ 2.5 - 3.5 Magnesium Sulfate 1 gm/ Sodium (Chloride) 102 mls @ 102 mls/hr IV PRN PRN PRN Reason: MAG LEVEL 1.4 - 2.0 Magnesium Sulfate 2 gm/ Device 100 mls @ 100 mls/hr IVPB ASDIR PRN PRN Reason: MAGNESIUM < 1.4 Potassium Phosphate 9 mmol/ (Sodium Chloride) 103 mls @ 25.75 mls/hr IVPB ASDIR PRN PRN Reason: Phosphate 1.0-1.8 Potassium Phosphate 12 mmol/ (Sodium Chloride) 254 mls @ 63.5 mls/hr IV ASDIR PRN PRN Reason: Serum phosphate 0.5-0.9 Potassium Phosphate 15 mmol/ (Sodium Chloride) 255 mls @ 63.75 mls/hr IV ASDIR PRN PRN Reason: Serum Phos < 0.5 Fentanyl Citrate 2,000 mcg/ (Sodium Chloride) 100 mls @ 0 mls/hr IV INF [facility]; Per Protocol PRN Reason: Protocol Stop: 03/28/18 04:00 Fentanyl Citrate (Fentanyl Bolus) 250 mls @ 0 mls/hr IVPB PRN PRN; As Directed PRN Reason: Breakthrough pain/agitation Stop: 03/28/18 04:00 Heparin Sodium/Dextrose (Heparin 25,000 Units/D5w 500 Ml) 500 mls @ 0 mls/hr IVPB INF [facility]; Per Protocol PRN Reason: Protocol Last Admin: 02/28/18 05:22 Dose: 500 mls Lorazepam (Ativan) 2 mg SLOW IVP Q1H PRN PRN Reason: Breakthrough agitation Stop: 03/28/18 04:00 Last Admin: 02/28/18 09:42 Dose: 2 mg Magnesium Oxide (Magnesium Oxide) 400 mg PO BIDPRN PRN PRN Reason: FOR SERUM MAG 1.4 - 2.0 Magnesium Oxide (Magnesium Oxide) 800 mg PO PRN PRN PRN Reason: FOR SERUM MAG < 1.4 Miscellaneous Medication (Phos-Nak) 1 pkt PO TIDPRN PRN PRN Reason: FOR PHOS LEVEL 1.0 - 1.8 Miscellaneous Medication (Phos-Nak) 2 pkt PO TIDPRN PRN PRN Reason: FOR PHOS LEVEL 0.5 - 1.0 Morphine Sulfate (Morphine) 2 mg SLOW IVP Q1H PRN PRN Reason: breakthrough pain/agitation Stop: 03/28/18 04:00 Ondansetron HCl (Zofran Odt) 4 mg PO Q6H PRN PRN Reason: Nausea/Vomiting Ondansetron HCl (Zofran) 4 mg IVP Q6H PRN PRN Reason: Nausea/Vomiting Potassium Chloride (K-Dur) 40 meq PO ASDIR PRN PRN Reason: FOR SERUM K+ 2.5 - 3.5 Potassium Chloride (Klor-Con) 40 meq PER TUBE ASDIR PRN PRN Reason: FOR SERUM K+ 2.5-3.5 Propofol (Diprivan) 1,000 mg IV INF PRN; Protocol PRN Reason: TO ACHIEVE GOAL RASS Stop: 03/28/18 04:00 Last Admin: 02/28/18 09:42 Dose: 1,000 mg Propofol (Diprivan Bolus) 20 mg IV Q5MIN PRN PRN Reason: BREAKTHROUGH AGITATION Stop: 03/28/18 04:00 Sodium Chloride (Flush - Normal Saline) 10 ml IVF Q12HR [facility] Last Admin: 02/28/18 09:30 Dose: 10 ml Sodium Chloride (Flush - Normal Saline) 10 ml IVF PRN PRN PRN Reason: Saline Flush
[2018-02-28 13:37] LABS: Hemoglobin 14.7 g/dL (12.0-16.0); Platelet Count 133 thou/uL (130-400)
[2018-02-28] MEDS: Heparin 10,000 UNITS/ 10 ML VIAL SLOW IVP SCH (14:35)
[2018-02-28 21:04] LABS: Vancomycin, Random 27.3 ug/mL (See Comment)
[2018-03-01 03:19] LABS: Anion Gap 16 mmol/L (10-20); BUN (Urea Nitrogen) 26 mg/dL (9.8-20.1); Calc. Creatinine Clearance 192 mL/min (70-130); Calcium 8.3 mg/dL (7.8-10.44); Carbon Dioxide 28 mmol/L (23-31); Chloride 101 mmol/L (98-107); Estimated GFR-MDRD 41; Glucose 94 mg/dL (80-115); Magnesium 2.1 mg/dL (1.6-2.6); Phosphorus 4.2 mg/dL (2.3-4.7); Potassium 4.4 mmol/L (3.5-5.1); Sodium 141 mmol/L (136-145)
[2018-03-01] MEDS: Propofol 1,000 MG/100 ML VIAL IV PRN ×2 (03:42→20:02)
[2018-03-01] MEDS: cefTRIAXone\\ROCEPHIN 2 GM in Sodium Chloride 0.9% 100 ML IVPB SCH (04:45)
[2018-03-01] MEDS: Furosemide 40 MG/4 ML VIAL SLOW IVP SCH ×2 (05:01→15:05)
[2018-03-01] MEDS: Aspirin 325 MG TAB PER TUBE SCH (09:00)
[2018-03-01] MEDS: Famotidine 40 MG/4 ML VIAL SLOW IVP SCH ×2 (10:03→20:05)
--- NOTE | 2018-03-01 11:22 | PDOC.PN ---
- Subjective Encounter Start Date: 03/01/18 Encounter Start Time: 07:00 Pt seen for followup re: acute respiratory failure. Pt is still intubated, unable to complete ROS. - Objective Resuscitation Status: Resuscitation Status FULL:Full Resuscitation MAR Reviewed: Yes Vital Signs & Weight: Vital Signs (12 hours) Temp Pulse Resp BP Pulse Ox 03/01/18 10:00 17 03/01/18 09:24 85 03/01/18 08:00 97.8 F 85 23 H 92 L 03/01/18 06:54 77 03/01/18 06:00 15 03/01/18 04:00 97.9 F 03/01/18 03:50 15 03/01/18 03:36 81 111/72 03/01/18 02:00 15 03/01/18 00:00 98.3 F 15 Weight Admit Weight 600 lb Weight 600 lb Most Recent Monitor Data Heart Rate from ECG 80 NIBP 123/72 NIBP BP-Mean 84 Respiration from ECG 22 SpO2 92 I&O: 02/28/18 03/01/18 03/02/18 06:59 06:59 06:59 Intake Total 2307 2647 30 Output Total 2555 4350 440 Balance -248 -1703 -410 Result Diagrams: 02/28/18 13:19 03/01/18 02:27 EKG Reviewed by me: Yes (Tele: NSR) Phys Exam - Physical Examination Morbidly obese HEENT: moist MMs, sclera anicteric ETT+. OG tube+ Respiratory: no wheezing, no rales, no rhonchi, clear to auscultation bilateral Cardiovascular: RRR, no rub Gastrointestinal: soft, non-tender, positive bowel sounds distention+ Musculoskeletal: edema present Deviation from normal: Unable to assess mood, affect or orientation to person, place or time Dx/Plan (1) Acute and chronic respiratory failure Code(s): J96.20 - ACUTE AND CHR RESP FAILURE, UNSP W HYPOXIA OR HYPERCAPNIA Status: Acute Qualifiers: Respiratory failure complication: hypercapnia Qualified Code(s): J96.22 - Acute and chronic respiratory failure with hypercapnia Comment: Intubated, mechanically ventilated. Will likely need tracheostomy (2) Acute on chronic diastolic (congestive) heart failure Code(s): I50.33 - ACUTE ON CHRONIC DIASTOLIC (CONGESTIVE) HEART FAILURE Status : Acute Comment: continue IV lasix (3) Pulmonary embolism Code(s): I26.99 - OTHER PULMONARY EMBOLISM WITHOUT ACUTE COR PULMONALE Status : Suspected Comment: continue heparin drip (4) Morbid obesity with BMI of 70 and over, adult Code(s): E66.01 - MORBID (SEVERE) OBESITY DUE TO EXCESS CALORIES; Z68.45 - BODY MASS INDEX (BMI) 70 OR GREATER, ADULT Status: Chronic (5) Pickwickian syndrome Code(s): E66.2 - MORBID (SEVERE) OBESITY WITH ALVEOLAR HYPOVENTILATION Status : Chronic (6) Hypokalemia Code(s): E87.6 - HYPOKALEMIA Status: Resolved Comment: On electrolyte replacement protocol - Plan * . Review of Systems - Medications/Allergies Allergies/Adverse Reactions: Allergies Allergy/AdvReac Type Severity Reaction Status Date / Time No Known Drug Allergies Allergy Unverified 02/26/18 01:50 Medications: Current Medications Acetaminophen (Tylenol) 1,000 mg PER TUBE Q6H PRN PRN Reason: Headache/Fever or Mild Pain Aspirin (Aspirin) 325 mg PER TUBE DAILY [facility] Last Admin: 03/01/18 09:00 Dose: 325 mg Clonidine (Catapres) 0.1 mg PO Q4H PRN PRN Reason: Systolic BP > 180 Famotidine (Pepcid) 20 mg SLOW IVP Q12HR [facility] Last Admin: 03/01/18 10:03 Dose: 20 mg Furosemide (Lasix) 40 mg SLOW IVP 0600,1400 [facility] Last Admin: 03/01/18 05:01 Dose: 40 mg Heparin Sodium (Porcine) (Heparin 1,000 Units/Ml (10 Ml)) 0 units SLOW IVP [facility] PRN Reason: Protocol Last Admin: 02/28/18 14:35 Dose: 8,160 unit Hydralazine HCl (Apresoline) 10 mg SLOW IVP Q4H PRN PRN Reason: Systolic BP > 180 Ceftriaxone Sodium 2 gm/ (Sodium Chloride) 100 mls @ 200 mls/hr IVPB Q24HR [facility] Last Admin: 03/01/18 04:45 Dose: 100 mls Potassium Chloride 40 meq/ (Sodium Chloride) 270 mls @ 135 mls/hr IVPB ASDIR PRN PRN Reason: FOR SERUM K+ 2.5 - 3.5 Last Admin: 02/28/18 06:18 Dose: 270 mls Potassium Chloride 40 meq/ (Device) 100 mls @ 50 mls/hr IVPB ASDIR PRN PRN Reason: FOR SERUM K+ 2.5 - 3.5 Magnesium Sulfate 1 gm/ Sodium (Chloride) 102 mls @ 102 mls/hr IV PRN PRN PRN Reason: MAG LEVEL 1.4 - 2.0 Magnesium Sulfate 2 gm/ Device 100 mls @ 100 mls/hr IVPB ASDIR PRN PRN Reason: MAGNESIUM < 1.4 Potassium Phosphate 9 mmol/ (Sodium Chloride) 103 mls @ 25.75 mls/hr IVPB ASDIR PRN PRN Reason: Phosphate 1.0-1.8 Potassium Phosphate 12 mmol/ (Sodium Chloride) 254 mls @ 63.5 mls/hr IV ASDIR PRN PRN Reason: Serum phosphate 0.5-0.9 Potassium Phosphate 15 mmol/ (Sodium Chloride) 255 mls @ 63.75 mls/hr IV ASDIR PRN PRN Reason: Serum Phos < 0.5 Fentanyl Citrate 2,000 mcg/ (Sodium Chloride) 100 mls @ 0 mls/hr IV INF [facility]; Per Protocol PRN Reason: Protocol Stop: 03/28/18 04:00 Fentanyl Citrate (Fentanyl Bolus) 250 mls @ 0 mls/hr IVPB PRN PRN; As Directed PRN Reason: Breakthrough pain/agitation Stop: 03/28/18 04:00 Heparin Sodium/Dextrose (Heparin 25,000 Units/D5w 500 Ml) 500 mls @ 0 mls/hr IVPB INF [facility]; Per Protocol PRN Reason: Protocol Last Admin: 02/28/18 22:54 Dose: 500 mls Magnesium Oxide (Magnesium Oxide) 400 mg PO BIDPRN PRN PRN Reason: FOR SERUM MAG 1.4 - 2.0 Magnesium Oxide (Magnesium Oxide) 800 mg PO PRN PRN PRN Reason: FOR SERUM MAG < 1.4 Miscellaneous Medication (Phos-Nak) 1 pkt PO TIDPRN PRN PRN Reason: FOR PHOS LEVEL 1.0 - 1.8 Miscellaneous Medication (Phos-Nak) 2 pkt PO TIDPRN PRN PRN Reason: FOR PHOS LEVEL 0.5 - 1.0 Morphine Sulfate (Morphine) 2 mg SLOW IVP Q1H PRN PRN Reason: breakthrough pain/agitation Stop: 03/28/18 04:00 Ondansetron HCl (Zofran Odt) 4 mg PO Q6H PRN PRN Reason: Nausea/Vomiting Ondansetron HCl (Zofran) 4 mg IVP Q6H PRN PRN Reason: Nausea/Vomiting Potassium Chloride (K-Dur) 40 meq PO ASDIR PRN PRN Reason: FOR SERUM K+ 2.5 - 3.5 Potassium Chloride (Klor-Con) 40 meq PER TUBE ASDIR PRN PRN Reason: FOR SERUM K+ 2.5-3.5 Propofol (Diprivan) 1,000 mg IV INF PRN; Protocol PRN Reason: TO ACHIEVE GOAL RASS Stop: 03/28/18 04:00 Last Admin: 03/01/18 03:42 Dose: 1,000 mg Propofol (Diprivan Bolus) 20 mg IV Q5MIN PRN PRN Reason: BREAKTHROUGH AGITATION Stop: 03/28/18 04:00 Sodium Chloride (Flush - Normal Saline) 10 ml IVF Q12HR [facility] Last Admin: 03/01/18 10:03 Dose: 10 ml Sodium Chloride (Flush - Normal Saline) 10 ml IVF PRN PRN PRN Reason: Saline Flush
[2018-03-01] MEDS ORDERED: Sodium Bicarb 50 MEQ/50 ML Abboject 8.4% SYRINGE ONE (19:00)
[2018-03-01 19:45] LABS: INR-International Normal Ratio 1.2; Prothrombin Time 15.6 SEC (12.0-14.7)
[2018-03-01] MEDS: Heparin 10,000 UNITS/ 10 ML VIAL SLOW IVP SCH (19:48)
[2018-03-01 19:59] LABS: PTT Greater than 250.0 SEC (22.9-36.1)
[2018-03-01 22:20] LABS: PTT 155.7 SEC (22.9-36.1)
[2018-03-02] MEDS: Propofol 1,000 MG/100 ML VIAL IV PRN ×4 (04:27→20:31)
[2018-03-02] MEDS: cefTRIAXone\\ROCEPHIN 2 GM in Sodium Chloride 0.9% 100 ML IVPB SCH (04:29)
[2018-03-02] MEDS: Furosemide 40 MG/4 ML VIAL SLOW IVP SCH ×2 (05:14→14:40)
[2018-03-02 05:19] LABS: Anion Gap 13 mmol/L (10-20); BUN (Urea Nitrogen) 23 mg/dL (9.8-20.1); Calc. Creatinine Clearance 173 mL/min (70-130); Calcium 8.5 mg/dL (7.8-10.44); Carbon Dioxide 32 mmol/L (23-31); Chloride 99 mmol/L (98-107); Estimated GFR-MDRD 50; Glucose 108 mg/dL (80-115); Potassium 3.2 mmol/L (3.5-5.1); Sodium 141 mmol/L (136-145)
[2018-03-02 07:23] LABS: Actual Bicarbonate (HCO3a) 32.9 mEq/L (22-26); O2 Tension (PaO2) 64.3 mmHg (80.0-100.0); pH, Arterial 7.41 (7.35-7.45)
[2018-03-02 07:24] LABS: Base Excess (BEa) 6.8 mEq/L (0 (+/-) 2.5); Calcium, Ionized 1.1 mmol/L (1.12-1.30); Hematocrit-ABG 47.1 % (36.0-47.0); Hemoglobin (Hb) 13.2 g/dL (12.0-16.0); Puncture Site RRA
[2018-03-02 08:01] LABS: PTT 57.7 SEC (22.9-36.1)
[2018-03-02 08:05] LABS: INR-International Normal Ratio 1.1; Prothrombin Time 13.8 SEC (12.0-14.7)
[2018-03-02] MEDS ORDERED: Sodium Bicarbonate Tab 325 MG TAB PER TUBE PRN (08:37)
[2018-03-02] MEDS ORDERED: Pancrelipase DR 12000 1 CAP FS PRN (08:37)
[2018-03-02] MEDS: Heparin 10,000 UNITS/ 10 ML VIAL SLOW IVP SCH (09:05)
[2018-03-02] MEDS: Aspirin 325 MG TAB PER TUBE SCH (09:41)
[2018-03-02] MEDS: Famotidine 20 MG TAB PER TUBE SCH ×2 (09:42→20:27)
--- NOTE | 2018-03-02 10:45 | PDOC.CTH ---
Cardiology Progress Note - Subjective No new issues. Remains sedated intubated. - Objective Vital Signs Temp Pulse Resp 03/02/18 10:26 81 03/02/18 10:00 19 03/02/18 08:00 23 H 03/02/18 07:57 98.3 F 03/02/18 07:04 82 03/02/18 06:00 24 H 03/02/18 05:26 92 03/02/18 04:00 98.9 F 22 H 03/02/18 02:00 18 03/02/18 01:51 85 03/02/18 00:00 98.2 F 15 Admit Weight 600 lb Weight 450 lb 6.47 oz 03/01/18 03/02/18 03/03/18 06:59 06:59 06:59 Intake Total 2647 2154 90 Output Total 4350 2580 1750 Balance -8062 -185 -3991 - Physical Examination General/Neuro: alert & oriented x3, NAD Neck: no JVD present Lungs: CTA, unlabored respirations Heart: RRR Abdomen: NT/ND Extremities: + edema B (3+) - Telemetry Telemetry Rhythm: NSR - Labs Result Diagrams: 02/28/18 13:19 03/02/18 04:30 Troponin/CKMB CK-MB (CK-2) 2.9 ng/mL (0-6.6) 02/26/18 01:05 Troponin I 0.180 ng/mL (< 0.028) H 02/26/18 06:57 - Assessment/Plan 1. Acute hypoxic hypercapnic respiratory insufficiency 2. Acute on chronic RV dysfunction. 3. Acute on chronic diastolic heart failure 4. Morbid obesity, BMI 103 5. Pickwickian syndrome 6. Hypokalemia PLAN: - Will repeat echo today and depending on how the RV looks will decide on stopping heparin drip. - Replace K. - Continue IV lasix.
--- NOTE | 2018-03-02 12:32 | PRG ---
DATE OF SERVICE: 03/02/2018 SUBJECTIVE: The patient is intubated on mechanical ventilation. There have been no acute changes ov ernight. PHYSICAL EXAMINATION: VITAL SIGNS: Temperature 98.3, pulse 89, blood pressure 118/56, a 24-hour intake 2580. HEENT: Unremarkable. NECK: No JVD. CHEST: Diminished breath sounds. CARDIAC: S1 and S2 regular. ABDOMEN: Soft and obese. EXTREMITIES: Edematous. LABORATORY DATA: Sodium 141, potassium 3.2, chloride 99, CO2 32, BUN 23, creatinine 1.1, glucose 108 , PTT 57.7. ASSESSMENT: 1. Obesity hypoventilation syndrome. 2. Acute on chronic respiratory failure. 3. Diastolic congestive heart failure. 4. Morbid obesity. PLAN: 1. Discussed with son over the phone today, would like to pursue tracheostomy as quickly as possible . Of note on this patient, all orders had to be handwritten because the computer is not working, spe cifically in her case. 2. Continuing heparin drip for presumed DVT/PE.
[2018-03-02] MEDS: Heparin 25,000 units/D5W 500 ML IVPB SCH (12:34)
[2018-03-02 15:03] LABS: Hemoglobin 13.4 g/dL (12.0-16.0); Platelet Count 81 thou/uL (130-400)
--- NOTE | 2018-03-02 16:00 | PDOC.PN ---
- Subjective Encounter Start Date: 03/02/18 Encounter Start Time: 09:20 Pt seen for followup re: hypokalemia. Intubated, unable to complete review of systems. - Objective Resuscitation Status: Resuscitation Status FULL:Full Resuscitation MAR Reviewed: Yes Vital Signs & Weight: Vital Signs (12 hours) Temp Pulse Resp 03/02/18 14:26 85 03/02/18 14:00 18 03/02/18 12:47 78 03/02/18 12:00 15 03/02/18 11:00 98.5 F 03/02/18 10:26 81 03/02/18 10:00 19 03/02/18 08:00 23 H 03/02/18 07:57 98.3 F 03/02/18 07:04 82 03/02/18 06:00 24 H 03/02/18 05:26 92 03/02/18 04:00 98.9 F 22 H Weight Admit Weight 600 lb Weight 450 lb 6.47 oz Most Recent Monitor Data Heart Rate from ECG 86 NIBP 121/74 NIBP BP-Mean 81 Respiration from ECG 18 SpO2 93 I&O: 03/01/18 03/02/18 03/03/18 06:59 06:59 06:59 Intake Total 2647 2154 120 Output Total 1496 0700 8860 Balance -1703 -426 -2580 Result Diagrams: 03/02/18 14:54 03/02/18 04:30 EKG Reviewed by me: Yes (Tele: NSR) Phys Exam - Physical Examination Morbid obesity ETT Neck: no nodes Respiratory: no wheezing, no rales, no rhonchi, clear to auscultation bilateral S1, S2, reg, normal rate Gastrointestinal: soft, non-tender, positive bowel sounds distended Musculoskeletal: edema present Neurological: moves all 4 limbs Deviation from normal: Unable to assess affect or orientation to person, place or time Dx/Plan (1) Hypokalemia Code(s): E87.6 - HYPOKALEMIA Status: Acute Comment: continue electrolyte replacement protocol (2) Acute and chronic respiratory failure Code(s): J96.20 - ACUTE AND CHR RESP FAILURE, UNSP W HYPOXIA OR HYPERCAPNIA Status: Acute Qualifiers: Respiratory failure complication: hypercapnia Qualified Code(s): J96.22 - Acute and chronic respiratory failure with hypercapnia Comment: Will likely need tracheostomy (3) Acute on chronic diastolic (congestive) heart failure Code(s): I50.33 - ACUTE ON CHRONIC DIASTOLIC (CONGESTIVE) HEART FAILURE Status : Acute Comment: continue IV lasix (4) Pulmonary embolism Code(s): I26.99 - OTHER PULMONARY EMBOLISM WITHOUT ACUTE COR PULMONALE Status : Suspected Comment: continue heparin drip per DVT/PE protocol (5) Morbid obesity with BMI of 70 and over, adult Code(s): E66.01 - MORBID (SEVERE) OBESITY DUE TO EXCESS CALORIES; Z68.45 - BODY MASS INDEX (BMI) 70 OR GREATER, ADULT Status: Chronic (6) Pickwickian syndrome Code(s): E66.2 - MORBID (SEVERE) OBESITY WITH ALVEOLAR HYPOVENTILATION Status : Chronic - Plan * . Review of Systems - Medications/Allergies Allergies/Adverse Reactions: Allergies Allergy/AdvReac Type Severity Reaction Status Date / Time No Known Drug Allergies Allergy Unverified 02/26/18 01:50 Medications: Current Medications Acetaminophen (Tylenol) 1,000 mg PER TUBE Q6H PRN PRN Reason: Headache/Fever or Mild Pain Lipase/Protease/Amylase ([place] [id number]) 1 cap FS .PER PROTOCOL PRN PRN Reason: TUBE OCCLUSION PROTOCOL Aspirin (Aspirin) 325 mg PER TUBE DAILY [facility] Last Admin: 03/02/18 09:41 Dose: 325 mg Clonidine (Catapres) 0.1 mg PO Q4H PRN PRN Reason: Systolic BP > 180 Famotidine (Pepcid) 20 mg PER TUBE Q12HR [facility] Last Admin: 03/02/18 09:42 Dose: 20 mg Furosemide (Lasix) 40 mg SLOW IVP 0600,1400 [facility] Last Admin: 03/02/18 14:40 Dose: 40 mg Heparin Sodium (Porcine) (Heparin 1,000 Units/Ml (10 Ml)) 0 units SLOW IVP ASDIR [facility] PRN Reason: Protocol Last Admin: 03/02/18 09:05 Dose: 8,160 unit Hydralazine HCl (Apresoline) 10 mg SLOW IVP Q4H PRN PRN Reason: Systolic BP > 180 Ceftriaxone Sodium 2 gm/ (Sodium Chloride) 100 mls @ 200 mls/hr IVPB Q24HR [facility] Last Admin: 03/02/18 04:29 Dose: 100 mls Potassium Chloride 40 meq/ (Sodium Chloride) 270 mls @ 135 mls/hr IVPB ASDIR PRN PRN Reason: FOR SERUM K+ 2.5 - 3.5 Last Admin: 02/28/18 06:18 Dose: 270 mls Potassium Chloride 40 meq/ (Device) 100 mls @ 50 mls/hr IVPB ASDIR PRN PRN Reason: FOR SERUM K+ 2.5 - 3.5 Magnesium Sulfate 1 gm/ Sodium (Chloride) 102 mls @ 102 mls/hr IV PRN PRN PRN Reason: MAG LEVEL 1.4 - 2.0 Magnesium Sulfate 2 gm/ Device 100 mls @ 100 mls/hr IVPB ASDIR PRN PRN Reason: MAGNESIUM < 1.4 Potassium Phosphate 9 mmol/ (Sodium Chloride) 103 mls @ 25.75 mls/hr IVPB ASDIR PRN PRN Reason: Phosphate 1.0-1.8 Potassium Phosphate 12 mmol/ (Sodium Chloride) 254 mls @ 63.5 mls/hr IV ASDIR PRN PRN Reason: Serum phosphate 0.5-0.9 Potassium Phosphate 15 mmol/ (Sodium Chloride) 255 mls @ 63.75 mls/hr IV ASDIR PRN PRN Reason: Serum Phos < 0.5 Fentanyl Citrate 2,000 mcg/ (Sodium Chloride) 100 mls @ 0 mls/hr IV INF [facility]IKE; Per Protocol PRN Reason: Protocol Stop: 03/28/18 04:00 Fentanyl Citrate (Fentanyl Bolus) 250 mls @ 0 mls/hr IVPB PRN PRN; As Directed PRN Reason: Breakthrough pain/agitation Stop: 03/28/18 04:00 Heparin Sodium/Dextrose (Heparin 25,000 Units/D5w 500 Ml) 500 mls @ 0 mls/hr IVPB INF HEIKE; Per Protocol PRN Reason: Protocol Last Admin: 03/02/18 12:34 Dose: 500 mls Magnesium Oxide (Magnesium Oxide) 400 mg PO BIDPRN PRN PRN Reason: FOR SERUM MAG 1.4 - 2.0 Magnesium Oxide (Magnesium Oxide) 800 mg PO PRN PRN PRN Reason: FOR SERUM MAG < 1.4 Miscellaneous Medication (Phos-Nak) 1 pkt PO TIDPRN PRN PRN Reason: FOR PHOS LEVEL 1.0 - 1.8 Miscellaneous Medication (Phos-Nak) 2 pkt PO TIDPRN PRN PRN Reason: FOR PHOS LEVEL 0.5 - 1.0 Morphine Sulfate (Morphine) 2 mg SLOW IVP Q1H PRN PRN Reason: breakthrough pain/agitation Stop: 03/28/18 04:00 Ondansetron HCl (Zofran Odt) 4 mg PO Q6H PRN PRN Reason: Nausea/Vomiting Ondansetron HCl (Zofran) 4 mg IVP Q6H PRN PRN Reason: Nausea/Vomiting Potassium Chloride (K-Dur) 40 meq PO ASDIR PRN PRN Reason: FOR SERUM K+ 2.5 - 3.5 Potassium Chloride (Klor-Con) 40 meq PER TUBE ASDIR PRN PRN Reason: FOR SERUM K+ 2.5-3.5 Last Admin: 03/02/18 05:54 Dose: 40 meq Propofol (Diprivan) 1,000 mg IV INF PRN; Protocol PRN Reason: TO ACHIEVE GOAL RASS Stop: 03/28/18 04:00 Last Admin: 03/02/18 10:29 Dose: 1,000 mg Propofol (Diprivan Bolus) 20 mg IV Q5MIN PRN PRN Reason: BREAKTHROUGH AGITATION Stop: 03/28/18 04:00 Sodium Bicarbonate (Bicarbonate, Sodium) 650 mg PER TUBE .PER PROTOCOL PRN PRN Reason: ENTERAL TUBE OCCLUSION Sodium Chloride (Flush - Normal Saline) 10 ml IVF Q12HR [facility] Last Admin: 03/02/18 09:42 Dose: 10 ml Sodium Chloride (Flush - Normal Saline) 10 ml IVF PRN PRN PRN Reason: Saline Flush
--- NOTE | 2018-03-03 02:56 | PRG ---
DATE OF SERVICE: 03/01/2018 SERVICE: Pulmonary Medicine. INTERVAL HISTORY: The patient is doing fine from a respiratory standpoint. There were no issues overnight. She is on sedation and cannot provide additional elements of the history. There were no reported events. PHYSICAL EXAMINATION: VITAL SIGNS: Afebrile, pulse 77, blood pressure 119/65, respirations 15, saturation 97% on 30% FiO2, and a PEEP of 5. GENERAL: Patient is intubated and sedated. HEENT: Normocephalic, atraumatic. Sclerae white. Conjunctiva pink. Oral and nasal mucosa is moist without lesions. LUNGS: Decent air entry. There is no prolonged expiratory phase. Adventitious sounds are not apparent though body habitus excludes accurate evaluation there. HEART: Normal rate, regular. ABDOMEN: Soft, nontender, nondistended. Bowel sounds are positive. MUSCULOSKELETAL: No cyanosis or clubbing. She has got diffuse woody edema throughout. : Tolbert catheter in place. NEUROLOGIC: Grossly nonfocal. LABORATORY DATA: Hemoglobin 14.7. PTT 59.9. Creatinine 1.32 and gently down trending. Basic metabolic profile is otherwise unremarkable. Potassium is 4.4 , magnesium and phosphorus fall within the normal limits. Blood cultures x2, urine culture negative. IMAGING: Chest x-ray demonstrates soft tissue attenuation. There is some rotation. The cardiac silhouette if shifted over though I do not see any obvious pleural parenchymal disease. She has diffuse interstitial common alveolar infiltrates, which may be accentuated by soft tissue attenuation, low lung volumes. Endotracheal tube remains 5 cm above the mark. There is an enteric catheter below the diaphragm. ASSESSMENT: 1. Acute on chronic hypoxic and hypercapnic respiratory failure. 2. Obesity hypoventilation syndrome. 3. Obstructive sleep apnea, severe. 4. Right ventricular heart strain. PLAN: I will continue to diurese the patient as tolerated through time. Empiric treatment for pulmonary embolism. We will continue as the patient really can't go into a CT scanner. We will continue our efforts that mobilizing the patient as much as tolerated, but that being said, she will likely end up with a tracheostomy. Laboratory holiday will be provided for tomorrow morning. Critical care time: 30 minutes. [facility]
[2018-03-03] MEDS: Heparin 25,000 units/D5W 500 ML IVPB SCH ×2 (03:14→17:35)
[2018-03-03] MEDS: Propofol 1,000 MG/100 ML VIAL IV PRN ×5 (03:14→17:34)
[2018-03-03] MEDS: cefTRIAXone\\ROCEPHIN 2 GM in Sodium Chloride 0.9% 100 ML IVPB SCH (03:26)
[2018-03-03 03:40] LABS: Anion Gap 13 mmol/L (10-20); BUN (Urea Nitrogen) 21 mg/dL (9.8-20.1); Calc. Creatinine Clearance 217 mL/min (70-130); Calcium 8.6 mg/dL (7.8-10.44); Carbon Dioxide 30 mmol/L (23-31); Chloride 99 mmol/L (98-107); Estimated GFR-MDRD 65; Glucose 100 mg/dL (80-115); Potassium 3.4 mmol/L (3.5-5.1); Sodium 139 mmol/L (136-145)
[2018-03-03] MEDS: Furosemide 40 MG/4 ML VIAL SLOW IVP SCH ×2 (05:29→16:17)
[2018-03-03 06:46] LABS: Band 8 % (5-11); Eosinophils 1 % (0-10); Hemoglobin 12.8 g/dL (12.0-16.0); Lymphocytes 7 % (21-51); MDiff Complete? YES; Mean Corpuscular HGB CONC 29.5 g/dL (32.0-36.0); Mean Corpuscular Volume 81.3 fl (81.0-99.0); Mean Platelet Volume 6.2 fL (7.4-10.4); Monocytes 11 % (0-10); Neutrophil 73 % (42-75); Ovalocytes SLIGHT = 2-5 cells (100X) (0-1/hpf); PLT Morphology Comment Appears Decreased; Platelet Count 81 thou/uL (130-400); RBC Distribution Width 18.4 % (11.5-14.5); Red Blood Cell (RBC) Count 5.36 mill/uL (4.20-5.40); White Blood Cell (WBC) Count 6.9 thou/uL (4.8-10.8)
[2018-03-03 06:59] LABS: CO2 Tension 58.3 mmHg (35.0-45.0); O2 Tension (PaO2) 65.9 mmHg (80.0-100.0); pH, Arterial 7.39 (7.35-7.45)
[2018-03-03 07:00] LABS: Actual Bicarbonate (HCO3a) 34.9 mEq/L (22-26); Base Excess (BEa) 8.2 mEq/L (0 (+/-) 2.5); Calcium, Ionized 1.2 mmol/L (1.12-1.30); Hemoglobin (Hb) 12.6 g/dL (12.0-16.0); Puncture Site RR
[2018-03-03 07:01] LABS: ALV-art Gradient 80.705 (0-20)
--- NOTE | 2018-03-03 07:55 | PRG ---
DATE OF SERVICE: 03/03/2018 Thirty-five minutes critical care time. This patient remains intubated on mechanical ventilation. When sedation is lessened, she will follow commands temporarily, but then becomes very agitated, pulling at equipment. Currently, she is sedat ed on propofol. PHYSICAL EXAMINATION: VITAL SIGNS: Temperature is 97.9, pulse 76, blood pressure 135/79. 24 hour intake 2469, output 5010 . Weight currently 450 pounds. HEENT: Pupils react. Sclerae are anicteric. Oropharynx clear. NECK: No JVD. LUNGS: Clear but distant breath sounds. CARDIOVASCULAR: S1, S2 regular. ABDOMEN: Soft, obese, nontender. EXTREMITIES: Edematous throughout. LABORATORY DATA: Sodium 139, potassium 3.4, chloride 99, CO2 30, BUN 21, creatinine 0.8, glucose 100 . White blood cell count 6.9, hematocrit 43.6, platelet count 81. ASSESSMENT: 1. Acute on chronic respiratory failure secondary to obesity hypoventilation syndrome. 2. Diastolic congestive heart failure. 3. Question of pulmonary embolism given elevated PA pressures at admission - I would favor this more being due to sleep apnea. 4. Developing thrombocytopenia on a heparin drip. PLAN: 1. I would go ahead and draw heparin-induced antibody profile. 2. If the platelets drop further, then consider stopping the heparin drip and initiating alternative form of anticoagulation. 3. Awaiting the family's word on tracheostomy placement. Given her current high ventilator settings with high levels of pressure support, I do not think that she is weanable otherwise. 4. Continue with diuresis.
--- NOTE | 2018-03-03 08:25 | PDOC.CTH ---
Cardiology Progress Note - Subjective No new issues. She remains intubated and sedated. - Objective Vital Signs Temp Pulse Resp BP 03/03/18 07:39 77 115/66 03/03/18 06:00 15 03/03/18 04:00 97.9 F 15 03/03/18 02:47 84 126/67 03/03/18 02:00 15 03/03/18 00:00 98.2 F 15 03/02/18 23:39 84 03/02/18 22:00 15 Admit Weight 600 lb Weight 450 lb 6.47 oz 03/02/18 03/03/18 03/04/18 06:59 06:59 06:59 Intake Total 2158 2469 Output Total 4699 3503 Balance -046 -1126 - Physical Examination General/Neuro: other: (Intubated, sedated. ) Neck: other: (short) Lungs: unlabored respirations Heart: RRR Abdomen: NT/ND Extremities: + edema B (3+) - Telemetry Telemetry Rhythm: NSR - Labs Result Diagrams: 03/03/18 02:44 03/03/18 03:03 Troponin/CKMB CK-MB (CK-2) 2.9 ng/mL (0-6.6) 02/26/18 01:05 Troponin I 0.180 ng/mL (< 0.028) H 02/26/18 06:57 - Assessment/Plan 1. Acute hypoxic hypercapnic respiratory insufficiency 2. Acute on chronic RV dysfunction. 3. Acute on chronic diastolic heart failure 4. Morbid obesity, BMI 103 5. Pickwickian syndrome 6. Hypokalemia PLAN: - Repeat echo seems a little worse with continued increase in Right sided pressures and RV seems to have worsened RV function. - Will continue IV heparin - She has a pleural effusion on Echo, continue IV lasix. - Replace K.
[2018-03-03] MEDS: Famotidine 20 MG TAB PER TUBE SCH ×2 (09:10→21:35)
[2018-03-03] MEDS: Aspirin 325 MG TAB PER TUBE SCH (09:11)
--- NOTE | 2018-03-03 13:16 | PDOC.PN ---
- Subjective Encounter Start Date: 03/03/18 Encounter Start Time: 11:00 PATIENT is seen today, remains intubated. Sedated. No family around. - Objective Resuscitation Status: Resuscitation Status FULL:Full Resuscitation MAR Reviewed: Yes Vital Signs & Weight: Vital Signs (12 hours) Temp Pulse Resp BP 03/03/18 13:05 71 110/69 03/03/18 09:23 76 138/63 03/03/18 08:00 97.3 F L 03/03/18 07:39 77 115/66 03/03/18 06:00 15 03/03/18 04:00 97.9 F 15 03/03/18 02:47 84 126/67 03/03/18 02:00 15 Weight Admit Weight 600 lb Weight 450 lb 6.47 oz Most Recent Monitor Data Heart Rate from ECG 77 NIBP 138/63 NIBP BP-Mean 86 Respiration from ECG 18 SpO2 96 I&O: 03/02/18 03/03/18 03/04/18 06:59 06:59 06:59 Intake Total 2154 2469 60 Output Total 2780 5010 1025 [facility] -426 -2541 -965 Result Diagrams: 03/03/18 02:44 03/03/18 03:03 Radiology Reviewed by me: Yes Phys Exam - Physical Examination Neck: no nodes, no JVD Respiratory: no wheezing, no rales Cardiovascular: RRR, no significant murmur Gastrointestinal: soft, non-tender Musculoskeletal: edema present Skin: no rash, normal turgor Dx/Plan (1) Acute idiopathic thrombocytopenic purpura Code(s): D69.3 - IMMUNE THROMBOCYTOPENIC PURPURA Status: Acute Comment: Paient has Drop in Plaelets >50% since admisison, will need evaalute for HIT. Pulmonary is also aware of it. Will order HIT antibodoes. Will need to consult hematology if HIT is positive. (2) Acute and chronic respiratory failure Code(s): J96.20 - ACUTE AND CHR RESP FAILURE, UNSP W HYPOXIA OR HYPERCAPNIA Status: Acute Qualifiers: Respiratory failure complication: hypercapnia Qualified Code(s): J96.22 - Acute and chronic respiratory failure with hypercapnia Comment: Will likely need tracheostomy (3) Acute on chronic diastolic (congestive) heart failure Code(s): I50.33 - ACUTE ON CHRONIC DIASTOLIC (CONGESTIVE) HEART FAILURE Status : Acute Comment: continue IV lasix (4) Hypokalemia Code(s): E87.6 - HYPOKALEMIA Status: Acute Comment: continue electrolyte replacement protocol (5) Morbid obesity with BMI of 70 and over, adult Code(s): E66.01 - MORBID (SEVERE) OBESITY DUE TO EXCESS CALORIES; Z68.45 - BODY MASS INDEX (BMI) 70 OR GREATER, ADULT Status: Chronic (6) Pickwickian syndrome Code(s): E66.2 - MORBID (SEVERE) OBESITY WITH ALVEOLAR HYPOVENTILATION Status : Chronic (7) Pulmonary embolism Code(s): I26.99 - OTHER PULMONARY EMBOLISM WITHOUT ACUTE COR PULMONALE Status : Suspected Comment: continue heparin drip per DVT/PE protocol - Plan cont current plan of care, 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 - Discharge Day Encounter end time: 11:35 Review of Systems - Review of Systems Other: NO ROS due to paient being in Sedation. - Medications/Allergies Allergies/Adverse Reactions: Allergies Allergy/AdvReac Type Severity Reaction Status Date / Time No Known Drug Allergies Allergy Unverified 02/26/18 01:50 Medications: Current Medications Acetaminophen (Tylenol) 1,000 mg PER TUBE Q6H PRN PRN Reason: Headache/Fever or Mild Pain Lipase/Protease/Amylase ([place] [id number]) 1 cap FS .PER PROTOCOL PRN PRN Reason: TUBE OCCLUSION PROTOCOL Aspirin (Aspirin) 325 mg PER TUBE DAILY [facility] Last Admin: 03/03/18 09:11 Dose: 325 mg Clonidine (Catapres) 0.1 mg PO Q4H PRN PRN Reason: Systolic BP > 180 Famotidine (Pepcid) 20 mg PER TUBE Q12HR [facility] Last Admin: 03/03/18 09:10 Dose: 20 mg Furosemide (Lasix) 40 mg SLOW IVP 0600,1400 [facility] Last Admin: 03/03/18 05:29 Dose: 40 mg Heparin Sodium (Porcine) (Heparin 1,000 Units/Ml (10 Ml)) 0 units SLOW IVP ASDIR [facility] PRN Reason: Protocol Last Admin: 03/02/18 09:05 Dose: 8,160 unit Hydralazine HCl (Apresoline) 10 mg SLOW IVP Q4H PRN PRN Reason: Systolic BP > 180 Ceftriaxone Sodium 2 gm/ (Sodium Chloride) 100 mls @ 200 mls/hr IVPB Q24HR [facility] Last Admin: 03/03/18 03:26 Dose: 100 mls Potassium Chloride 40 meq/ (Sodium Chloride) 270 mls @ 135 mls/hr IVPB ASDIR PRN PRN Reason: FOR SERUM K+ 2.5 - 3.5 Last Admin: 02/28/18 06:18 Dose: 270 mls Potassium Chloride 40 meq/ (Device) 100 mls @ 50 mls/hr IVPB ASDIR PRN PRN Reason: FOR SERUM K+ 2.5 - 3.5 Magnesium Sulfate 1 gm/ Sodium (Chloride) 102 mls @ 102 mls/hr IV PRN PRN PRN Reason: MAG LEVEL 1.4 - 2.0 Magnesium Sulfate 2 gm/ Device 100 mls @ 100 mls/hr IVPB ASDIR PRN PRN Reason: MAGNESIUM < 1.4 Potassium Phosphate 9 mmol/ (Sodium Chloride) 103 mls @ 25.75 mls/hr IVPB ASDIR PRN PRN Reason: Phosphate 1.0-1.8 Potassium Phosphate 12 mmol/ (Sodium Chloride) 254 mls @ 63.5 mls/hr IV ASDIR PRN PRN Reason: Serum phosphate 0.5-0.9 Potassium Phosphate 15 mmol/ (Sodium Chloride) 255 mls @ 63.75 mls/hr IV ASDIR PRN PRN Reason: Serum Phos < 0.5 Fentanyl Citrate 2,000 mcg/ (Sodium Chloride) 100 mls @ 0 mls/hr IV INF [facility]; Per Protocol PRN Reason: Protocol Stop: 03/28/18 04:00 Fentanyl Citrate (Fentanyl Bolus) 250 mls @ 0 mls/hr IVPB PRN PRN; As Directed PRN Reason: Breakthrough pain/agitation Stop: 03/28/18 04:00 Heparin Sodium/Dextrose (Heparin 25,000 Units/D5w 500 Ml) 500 mls @ 0 mls/hr IVPB INF [facility]; Per Protocol PRN Reason: Protocol Last Admin: 03/03/18 03:14 Dose: 500 mls Magnesium Oxide (Magnesium Oxide) 400 mg PO BIDPRN PRN PRN Reason: FOR SERUM MAG 1.4 - 2.0 Magnesium Oxide (Magnesium Oxide) 800 mg PO PRN PRN PRN Reason: FOR SERUM MAG < 1.4 Miscellaneous Medication (Phos-Nak) 1 pkt PO TIDPRN PRN PRN Reason: FOR PHOS LEVEL 1.0 - 1.8 Miscellaneous Medication (Phos-Nak) 2 pkt PO TIDPRN PRN PRN Reason: FOR PHOS LEVEL 0.5 - 1.0 Morphine Sulfate (Morphine) 2 mg SLOW IVP Q1H PRN PRN Reason: breakthrough pain/agitation Stop: 03/28/18 04:00 Ondansetron HCl (Zofran Odt) 4 mg PO Q6H PRN PRN Reason: Nausea/Vomiting Ondansetron HCl (Zofran) 4 mg IVP Q6H PRN PRN Reason: Nausea/Vomiting Potassium Chloride (K-Dur) 40 meq PO ASDIR PRN PRN Reason: FOR SERUM K+ 2.5 - 3.5 Potassium Chloride (Klor-Con) 40 meq PER TUBE ASDIR PRN PRN Reason: FOR SERUM K+ 2.5-3.5 Last Admin: 03/03/18 05:29 Dose: 40 meq Propofol (Diprivan) 1,000 mg IV INF PRN; Protocol PRN Reason: TO ACHIEVE GOAL RASS Stop: 03/28/18 04:00 Last Admin: 03/03/18 09:22 Dose: 1,000 mg Propofol (Diprivan Bolus) 20 mg IV Q5MIN PRN PRN Reason: BREAKTHROUGH AGITATION Stop: 03/28/18 04:00 Sodium Bicarbonate (Bicarbonate, Sodium) 650 mg PER TUBE .PER PROTOCOL PRN PRN Reason: ENTERAL TUBE OCCLUSION Sodium Chloride (Flush - Normal Saline) 10 ml IVF Q12HR [facility] Last Admin: 03/03/18 09:11 Dose: 10 ml Sodium Chloride (Flush - Normal Saline) 10 ml IVF PRN PRN PRN Reason: Saline Flush
[2018-03-04] MEDS: Propofol 1,000 MG/100 ML VIAL IV PRN ×6 (00:30→22:35)
[2018-03-04 00:57] LABS: PTT Greater than 250.0 SEC (22.9-36.1)
[2018-03-04] MEDS: cefTRIAXone\\ROCEPHIN 2 GM in Sodium Chloride 0.9% 100 ML IVPB SCH (04:01)
[2018-03-04 04:34] LABS: Anion Gap 13 mmol/L (10-20); BUN (Urea Nitrogen) 20 mg/dL (9.8-20.1); Calc. Creatinine Clearance 230 mL/min (70-130); Calcium 9.1 mg/dL (7.8-10.44); Carbon Dioxide 33 mmol/L (23-31); Chloride 95 mmol/L (98-107); Estimated GFR-MDRD 70; Glucose 95 mg/dL (80-115); Potassium 3.3 mmol/L (3.5-5.1); Sodium 138 mmol/L (136-145)
[2018-03-04 04:51] LABS: Band 1 % (5-11); Eosinophils 7 % (0-10); Lymphocytes 5 % (21-51); MDiff Complete? YES; Mean Corpuscular HGB CONC 30.3 g/dL (32.0-36.0); Mean Corpuscular Hemoglobin 24.6 pg (27.0-31.0); Mean Corpuscular Volume 81.2 fl (81.0-99.0); Mean Platelet Volume 6.8 fL (7.4-10.4); Monocytes 18 % (0-10); Neutrophil 69 % (42-75); PLT Morphology Comment Appears Decreased; Platelet Count 81 thou/uL (130-400); RBC Distribution Width 18.4 % (11.5-14.5); Red Blood Cell (RBC) Count 5.28 mill/uL (4.20-5.40); White Blood Cell (WBC) Count 6.8 thou/uL (4.8-10.8)
[2018-03-04] MEDS: Heparin 10,000 UNITS/ 10 ML VIAL SLOW IVP SCH (05:30)
[2018-03-04] MEDS: Furosemide 40 MG/4 ML VIAL SLOW IVP SCH ×2 (05:33→13:39)
--- NOTE | 2018-03-04 08:18 | PRG ---
DATE OF SERVICE: 03/04/2018 Thirty-five minutes critical care time. The patient remains intubated on mechanical ventilation. She is deeply sedated on propofol. PHYSICAL EXAMINATION: VITAL SIGNS: Temperature is 97.9, pulse 94, blood pressure 131/69, 24 intake 2617, output 3465. Las t weight check was 450 pounds. HEENT: Pupils react. Oropharynx clear. NECK: No JVD. LUNGS: Distant breath sounds. CARDIOVASCULAR: S1, S2 distant. ABDOMEN: Morbidly obese, soft. EXTREMITIES: Edematous throughout. LABORATORY DATA: White blood cell count 6.8, hematocrit 42.9, platelet count 81. Last PTT measures 35.4. ABG pending. Sodium 138, potassium 3.3, chloride 95, CO2 33, BUN 20, creatinine 0.8, glucose 95. ASSESSMENT: 1. Morbid obesity with acute on chronic respiratory failure secondary to obesity hypoventilation syn drome. 2. Diastolic congestive heart failure. 3. Question of pulmonary embolism given elevated PA pressures at admission. 4. Stable thrombocytopenia on heparin drip. RECOMMENDATIONS: Palliative care is discussing the situation with the family. We are continuing diu resis. If the family wants to press on, then I would advocate tracheostomy placement as soon as prac tical. If the family does not think she would want a trach, then I would recommend converting to pal liative measures.
[2018-03-04] MEDS: Famotidine 20 MG TAB PER TUBE SCH ×2 (08:31→22:34)
[2018-03-04] MEDS: Aspirin 325 MG TAB PER TUBE SCH (08:32)
[2018-03-04] MEDS: Heparin 25,000 units/D5W 500 ML IVPB SCH (12:48)
--- NOTE | 2018-03-04 15:11 | PDOC.PN ---
- Subjective Encounter Start Date: 03/04/18 Encounter Start Time: 12:00 Yusra is seen today, Remains intubated on mechanical ventilation,Sedated. Poor prognosis - Objective Resuscitation Status: Resuscitation Status FULL:Full Resuscitation MAR Reviewed: Yes Vital Signs & Weight: Vital Signs (12 hours) Temp Pulse Resp 03/04/18 13:16 86 03/04/18 12:00 98.0 F 17 03/04/18 10:24 86 03/04/18 10:00 20 03/04/18 08:00 97.8 F 20 03/04/18 07:05 88 03/04/18 06:00 23 H 03/04/18 04:00 97.9 F 22 H Weight Admit Weight 600 lb Weight 450 lb 6.47 oz Most Recent Monitor Data Heart Rate from ECG 77 NIBP 98/58 NIBP BP-Mean 67 Respiration from ECG 18 SpO2 91 I&O: 03/03/18 03/04/18 03/05/18 06:59 06:59 06:59 Intake Total 2469 2617 60 Output Total 5010 3465 1630 Balance -2541 -848 -1570 Result Diagrams: 03/04/18 04:15 03/04/18 04:15 Radiology Reviewed by me: Yes Phys Exam - Physical Examination Neck: no nodes JVD noted Respiratory: wheezing present Cardiovascular: RRR, no significant murmur Gastrointestinal: soft Reduced BM, Distention. Musculoskeletal: edema present Unable to perform. Skin: no rash Dx/Plan (1) Acute idiopathic thrombocytopenic purpura Code(s): D69.3 - IMMUNE THROMBOCYTOPENIC PURPURA Status: Acute Comment: Yusra has Drop in Plaelets >50% since admisison,remained stbale Now. 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 High risk for pneumonia. (3) Acute on chronic diastolic (congestive) heart failure Code(s): I50.33 - ACUTE ON CHRONIC DIASTOLIC (CONGESTIVE) HEART FAILURE Status : Acute Comment: continue IV lasix (4) Hypokalemia Code(s): E87.6 - HYPOKALEMIA Status: Acute Comment: continue electrolyte replacement protocol (5) Morbid obesity with BMI of 70 and over, adult Code(s): E66.01 - MORBID (SEVERE) OBESITY DUE TO EXCESS CALORIES; Z68.45 - BODY MASS INDEX (BMI) 70 OR GREATER, ADULT Status: Chronic (6) Pickwickian syndrome Code(s): E66.2 - MORBID (SEVERE) OBESITY WITH ALVEOLAR HYPOVENTILATION Status : Chronic (7) Pulmonary embolism Code(s): I26.99 - OTHER PULMONARY EMBOLISM WITHOUT ACUTE COR PULMONALE Status : Suspected Comment: continue heparin drip per DVT/PE protocol - Plan cont current plan of care, continue antibiotics, respiratory therapy, DVT proph w/lovenox * . - Discharge Day Encounter end time: 12:35 Review of Systems - Review of Systems Other: P is sedated and intubated. - Medications/Allergies Allergies/Adverse Reactions: Allergies Allergy/AdvReac Type Severity Reaction Status Date / Time No Known Drug Allergies Allergy Unverified 02/26/18 01:50 Medications: Current Medications Acetaminophen (Tylenol) 1,000 mg PER TUBE Q6H PRN PRN Reason: Headache/Fever or Mild Pain Lipase/Protease/Amylase ([place] [id number]) 1 cap FS .PER PROTOCOL PRN PRN Reason: TUBE OCCLUSION PROTOCOL Aspirin (Aspirin) 325 mg PER TUBE DAILY [facility] Last Admin: 03/04/18 08:32 Dose: 325 mg Clonidine (Catapres) 0.1 mg PO Q4H PRN PRN Reason: Systolic BP > 180 Famotidine (Pepcid) 20 mg PER TUBE Q12HR [facility] Last Admin: 03/04/18 08:31 Dose: 20 mg Furosemide (Lasix) 40 mg SLOW IVP 0600,1400 [facility] Last Admin: 03/04/18 13:39 Dose: 40 mg Heparin Sodium (Porcine) (Heparin 1,000 Units/Ml (10 Ml)) 0 units SLOW IVP ASDIR HEIKE PRN Reason: Protocol Last Admin: 03/04/18 05:30 Dose: 4,000 unit Hydralazine HCl (Apresoline) 10 mg SLOW IVP Q4H PRN PRN Reason: Systolic BP > 180 Ceftriaxone Sodium 2 gm/ (Sodium Chloride) 100 mls @ 200 mls/hr IVPB Q24HR [facility] Last Admin: 03/04/18 04:01 Dose: 100 mls Potassium Chloride 40 meq/ (Sodium Chloride) 270 mls @ 135 mls/hr IVPB ASDIR PRN PRN Reason: FOR SERUM K+ 2.5 - 3.5 Last Admin: 02/28/18 06:18 Dose: 270 mls Potassium Chloride 40 meq/ (Device) 100 mls @ 50 mls/hr IVPB ASDIR PRN PRN Reason: FOR SERUM K+ 2.5 - 3.5 Magnesium Sulfate 1 gm/ Sodium (Chloride) 102 mls @ 102 mls/hr IV PRN PRN PRN Reason: MAG LEVEL 1.4 - 2.0 Magnesium Sulfate 2 gm/ Device 100 mls @ 100 mls/hr IVPB ASDIR PRN PRN Reason: MAGNESIUM < 1.4 Potassium Phosphate 9 mmol/ (Sodium Chloride) 103 mls @ 25.75 mls/hr IVPB ASDIR PRN PRN Reason: Phosphate 1.0-1.8 Potassium Phosphate 12 mmol/ (Sodium Chloride) 254 mls @ 63.5 mls/hr IV ASDIR PRN PRN Reason: Serum phosphate 0.5-0.9 Potassium Phosphate 15 mmol/ (Sodium Chloride) 255 mls @ 63.75 mls/hr IV ASDIR PRN PRN Reason: Serum Phos < 0.5 Fentanyl Citrate 2,000 mcg/ (Sodium Chloride) 100 mls @ 0 mls/hr IV INF HEIKE; Per Protocol PRN Reason: Protocol Stop: 03/28/18 04:00 Fentanyl Citrate (Fentanyl Bolus) 250 mls @ 0 mls/hr IVPB PRN PRN; As Directed PRN Reason: Breakthrough pain/agitation Stop: 03/28/18 04:00 Heparin Sodium/Dextrose (Heparin 25,000 Units/D5w 500 Ml) 500 mls @ 0 mls/hr IVPB INF HEIKE; Per Protocol PRN Reason: Protocol Last Admin: 03/04/18 12:48 Dose: 500 mls Magnesium Oxide (Magnesium Oxide) 400 mg PO BIDPRN PRN PRN Reason: FOR SERUM MAG 1.4 - 2.0 Magnesium Oxide (Magnesium Oxide) 800 mg PO PRN PRN PRN Reason: FOR SERUM MAG < 1.4 Miscellaneous Medication (Phos-Nak) 1 pkt PO TIDPRN PRN PRN Reason: FOR PHOS LEVEL 1.0 - 1.8 Miscellaneous Medication (Phos-Nak) 2 pkt PO TIDPRN PRN PRN Reason: FOR PHOS LEVEL 0.5 - 1.0 Morphine Sulfate (Morphine) 2 mg SLOW IVP Q1H PRN PRN Reason: breakthrough pain/agitation Stop: 03/28/18 04:00 Ondansetron HCl (Zofran Odt) 4 mg PO Q6H PRN PRN Reason: Nausea/Vomiting Ondansetron HCl (Zofran) 4 mg IVP Q6H PRN PRN Reason: Nausea/Vomiting Potassium Chloride (K-Dur) 40 meq PO ASDIR PRN PRN Reason: FOR SERUM K+ 2.5 - 3.5 Last Admin: 03/04/18 06:43 Dose: 40 meq Potassium Chloride (Klor-Con) 40 meq PER TUBE ASDIR PRN PRN Reason: FOR SERUM K+ 2.5-3.5 Last Admin: 03/03/18 05:29 Dose: 40 meq Propofol (Diprivan) 1,000 mg IV INF PRN; Protocol PRN Reason: TO ACHIEVE GOAL RASS Stop: 03/28/18 04:00 Last Admin: 03/04/18 12:51 Dose: 1,000 mg Propofol (Diprivan Bolus) 20 mg IV Q5MIN PRN PRN Reason: BREAKTHROUGH AGITATION Stop: 03/28/18 04:00 Sodium Bicarbonate (Bicarbonate, Sodium) 650 mg PER TUBE .PER PROTOCOL PRN PRN Reason: ENTERAL TUBE OCCLUSION Sodium Chloride (Flush - Normal Saline) 10 ml IVF Q12HR [facility] Last Admin: 03/04/18 08:32 Dose: 10 ml Sodium Chloride (Flush - Normal Saline) 10 ml IVF PRN PRN PRN Reason: Saline Flush
--- NOTE | 2018-03-04 16:36 | PDOC.CTH ---
Cardiology Progress Note - Subjective Remains sedated, intubated. - Objective Vital Signs Temp Pulse Resp 03/04/18 15:38 77 03/04/18 14:00 18 03/04/18 13:16 86 03/04/18 12:00 98.0 F 17 03/04/18 10:24 86 03/04/18 10:00 20 03/04/18 08:00 97.8 F 20 03/04/18 07:05 88 03/04/18 06:00 23 H Admit Weight 600 lb Weight 450 lb 6.47 oz 03/03/18 03/04/18 03/05/18 06:59 06:59 06:59 Intake Total 8919 4854 60 Output Total 7094 7304 5086 [facility] -0359 -818 -8938 - Physical Examination General/Neuro: other: (sedated) Neck: other: (short neck) Lungs: other: (coarse ant.) Heart: RRR Abdomen: NT/ND Extremities: + edema B (2+) - Telemetry Telemetry Rhythm: NSR, PVC's - Labs Result Diagrams: 03/04/18 04:15 03/04/18 04:15 Troponin/CKMB CK-MB (CK-2) 2.9 ng/mL (0-6.6) 02/26/18 01:05 Troponin I 0.180 ng/mL (< 0.028) H 02/26/18 06:57 - Assessment/Plan 1. Acute hypoxic hypercapnic respiratory insufficiency 2. Acute on chronic RV dysfunction. 3. Acute on chronic diastolic heart failure 4. Morbid obesity, BMI 103 5. Pickwickian syndrome 6. Hypokalemia PLAN: - Continue IV heparin - Continue IV lasix. - Replace K. - I agree with palliative care. Family to make decision.
[2018-03-04 21:36] LABS: Hemoglobin 12.7 g/dL (12.0-16.0); Platelet Count 77 thou/uL (130-400)
[2018-03-05] MEDS: cefTRIAXone\\ROCEPHIN 2 GM in Sodium Chloride 0.9% 100 ML IVPB SCH (03:06)
[2018-03-05] MEDS: Propofol 1,000 MG/100 ML VIAL IV PRN (03:06)
[2018-03-05 04:24] LABS: Anion Gap 13 mmol/L (10-20); BUN (Urea Nitrogen) 19 mg/dL (9.8-20.1); Calc. Creatinine Clearance 244 mL/min (70-130); Calcium 9.2 mg/dL (7.8-10.44); Carbon Dioxide 34 mmol/L (23-31); Chloride 94 mmol/L (98-107); Estimated GFR-MDRD 75; Glucose 88 mg/dL (80-115); Potassium 3.4 mmol/L (3.5-5.1); Sodium 138 mmol/L (136-145)
[2018-03-05] MEDS: Furosemide 40 MG/4 ML VIAL SLOW IVP SCH ×2 (06:24→13:26)
--- NOTE | 2018-03-05 07:21 | PDOC.PULCC ---
CCU Progress Note: Subj/Obj - Subjective Date: 03/05/18 Time: 07:19 Subjective: Intubated, on vent - Objective Allergies/Adverse Reactions: Allergies Allergy/AdvReac Type Severity Reaction Status Date / Time No Known Drug Allergies Allergy Unverified 02/26/18 01:50 MAR Reviewed: Yes Vital Signs and I&O: Vital Signs Temp 97.8 F 03/05/18 04:00 Pulse 89 03/05/18 06:48 Resp 21 H 03/05/18 06:00 BP 125/62 03/05/18 02:15 Pulse Ox 92 L 03/04/18 20:00 Intake & Output 03/04/18 03/05/18 03/05/18 18:59 06:59 18:59 Intake Total 1108 1624 Output Total 2260 625 Balance -1152 999 Weight 450 lb 6.47 oz Intake: Intake, IV Amount 865 1023 Heparin 25,000 units/D5W 455 535 500 ml @ Per Protocol IVPB INF HEIKE Rx#:[id number] Propofol 1000 mg (See 278 271 Protocol) IV INF PRN Rx#: [id number] Sodium Chloride 0.9% 10 132 217 ml IVF PRN PRN Rx#: [id number] Tube Feeding 153 361 Tube Irrigant 90 240 Output: Output, [place] 2260 625 Other: Voiding Method Indwelling Catheter Indwelling Catheter # Bowel Movements 0 CCU Progress Note: Exam - Physical Exam Deviation from normal: very somnalent, on low dose propofol HEENT: PERRLA Neck: no nodes, no JVD Cardiovascular: RRR Respiratory: rales Deviation from normal: obese, soft, nt Musculoskeletal: edema present Deviation from normal: pt not following Deviation from normal: chronic stasis changes on legs CCU Progress Note: Data - Labs Result Diagrams: 03/04/18 21:23 03/05/18 04:05 CCU Progress Note: A/P - Problems (1) Acute and chronic respiratory failure Current Visit: Yes Status: Acute Code(s): J96.20 - ACUTE AND CHR RESP FAILURE, UNSP W HYPOXIA OR HYPERCAPNIA Qualifiers: Respiratory failure complication: hypercapnia Qualified Code(s): J96.22 - Acute and chronic respiratory failure with hypercapnia (2) Acute on chronic diastolic (congestive) heart failure Current Visit: Yes Status: Acute Code(s): I50.33 - ACUTE ON CHRONIC DIASTOLIC (CONGESTIVE) HEART FAILURE (3) Morbid obesity with BMI of 70 and over, adult Current Visit: Yes Status: Chronic Code(s): E66.01 - MORBID (SEVERE) OBESITY DUE TO EXCESS CALORIES; Z68.45 - BODY MASS INDEX (BMI) 70 OR GREATER, ADULT (4) Pickwickian syndrome Current Visit: Yes Status: Chronic Code(s): E66.2 - MORBID (SEVERE) OBESITY WITH ALVEOLAR HYPOVENTILATION - Time Spent with Patient Time (minutes): 35 (cc time) - Plan Plan: Appreciate PC meeting with pts sons over phone. Basically we are waiting for a decision regarding tracheostomy placement vs conversion to palliative care. The patient is overly sedated, so we will try her off all sedation and see what happens. I do not think she would do well extubated. She continues anticoagulation for the slight possibility of PE, given that we can't image.
[2018-03-05] MEDS: Aspirin 325 MG TAB PER TUBE SCH (08:47)
[2018-03-05] MEDS: Famotidine 20 MG TAB PER TUBE SCH ×2 (08:47→21:07)
[2018-03-05] MEDS: Morphine 4 MG/ML VIAL SLOW IVP PRN ×2 (09:47→22:57)
[2018-03-05 11:17] LABS: PTT 127.6 SEC (22.9-36.1)
--- NOTE | 2018-03-05 12:47 | PDOC.CTH ---
Cardiology Progress Note - Subjective Remains sedated intubated. - Objective Vital Signs Temp Pulse Resp BP Pulse Ox 03/05/18 12:00 97.6 F 19 03/05/18 10:00 15 03/05/18 09:44 87 03/05/18 08:00 97 F L 80 20 90 L 03/05/18 07:00 97 F L 03/05/18 06:48 89 03/05/18 06:00 21 H 03/05/18 04:00 97.8 F 17 03/05/18 02:15 86 125/62 03/05/18 02:00 17 Admit Weight 600 lb Weight 450 lb 6.47 oz 03/04/18 03/05/18 03/06/18 06:59 06:59 06:59 Intake Total 2617 2732 30 Output Total 6496 8988 853 Balance -447 -704 -408 - Physical Examination General/Neuro: other: (sedated, intubated. ) Neck: other: (Short neck) Lungs: CTA Heart: RRR Abdomen: NT/ND Extremities: + edema B (3+) - Telemetry Telemetry Rhythm: NSR, PVC's - Labs Result Diagrams: 03/04/18 21:23 03/05/18 04:05 Troponin/CKMB CK-MB (CK-2) 2.9 ng/mL (0-6.6) 02/26/18 01:05 Troponin I 0.180 ng/mL (< 0.028) H 02/26/18 06:57 - Assessment/Plan 1. Acute hypoxic hypercapnic respiratory insufficiency 2. Acute on chronic RV dysfunction. 3. Acute on chronic diastolic heart failure 4. Morbid obesity, BMI 103 5. Pickwickian syndrome 6. Hypokalemia PLAN: - Continue IV lasix. - Continue heparin gtt. - Replace K. - Continue supportive care. - Awaiting family decision as to wether to do Palliative care or Trach and Peg.
[2018-03-05] MEDS: Heparin 25,000 units/D5W 500 ML IVPB SCH (14:46)
--- NOTE | 2018-03-05 15:14 | PDOC.PN ---
- Subjective Encounter Start Date: 03/05/18 Encounter Start Time: 13:15 Patient is seen today, off of Sedation, She is following commands, She did Squeeze my hand when asked, pt still remains critical due to her worseing Right Heart failure from Pulmonary HTN. No family around, they plan to come tomorrow for Family Meeting. - Objective Resuscitation Status: Resuscitation Status FULL:Full Resuscitation MAR Reviewed: Yes Vital Signs & Weight: Vital Signs (12 hours) Temp Pulse Resp Pulse Ox 03/05/18 15:01 88 03/05/18 14:00 15 03/05/18 13:01 81 03/05/18 12:00 97.6 F 19 03/05/18 10:00 15 03/05/18 09:44 87 03/05/18 08:00 97 F L 80 20 90 L 03/05/18 07:00 97 F L 03/05/18 06:48 89 03/05/18 06:00 21 H 03/05/18 04:00 97.8 F 17 Weight Admit Weight 600 lb Weight 450 lb 6.47 oz Most Recent Monitor Data Heart Rate from ECG 89 NIBP 123/74 NIBP BP-Mean 90 Respiration from ECG 28 SpO2 92 I&O: 03/04/18 03/05/18 03/06/18 06:59 06:59 06:59 Intake Total 2617 2732 30 Output Total [address] [facility] -848 -153 -1035 Result Diagrams: 03/04/18 21:23 03/05/18 04:05 Radiology Reviewed by me: Yes Phys Exam - Physical Examination Neck: no nodes, no JVD Respiratory: no rales, wheezing present Cardiovascular: RRR, no significant murmur Gastrointestinal: soft, non-tender Musculoskeletal: edema present Right leg Pannus is noted likely infected Sebacios cysts Neurological: non-focal, normal sensation Lymphatic: no nodes Psychiatric: normal affect Skin: no rash, normal turgor Dx/Plan (1) Acute idiopathic thrombocytopenic purpura Code(s): D69.3 - IMMUNE THROMBOCYTOPENIC PURPURA Status: Acute Comment: Paient has Drop in Plaelets >50% since admisison,remained stbale Now. HIT was negative. 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 High risk for pneumonia. (3) Acute on chronic diastolic (congestive) heart failure Code(s): I50.33 - ACUTE ON CHRONIC DIASTOLIC (CONGESTIVE) HEART FAILURE Status : Acute Comment: continue IV lasix (4) Hypokalemia Code(s): E87.6 - HYPOKALEMIA Status: Acute Comment: continue electrolyte replacement protocol (5) Morbid obesity with BMI of 70 and over, adult Code(s): E66.01 - MORBID (SEVERE) OBESITY DUE TO EXCESS CALORIES; Z68.45 - BODY MASS INDEX (BMI) 70 OR GREATER, ADULT Status: Chronic (6) Pickwickian syndrome Code(s): E66.2 - MORBID (SEVERE) OBESITY WITH ALVEOLAR HYPOVENTILATION Status : Chronic (7) Pulmonary embolism Code(s): I26.99 - OTHER PULMONARY EMBOLISM WITHOUT ACUTE COR PULMONALE Status : Suspected Comment: continue heparin drip per DVT/PE protocol - Plan cont current plan of care, continue antibiotics, PT/OT, medical social worker, respiratory therapy, incentive spirometry, DVT proph w/lovenox * . - Discharge Day Encounter end time: 13:45 Review of Systems - Review of Systems Other: Unable to give ROS as pt is Intubated. - Medications/Allergies Allergies/Adverse Reactions: Allergies Allergy/AdvReac Type Severity Reaction Status Date / Time No Known Drug Allergies Allergy Unverified 02/26/18 01:50 Medications: Current Medications Acetaminophen (Tylenol) 1,000 mg PER TUBE Q6H PRN PRN Reason: Headache/Fever or Mild Pain Lipase/Protease/Amylase ([place] [address]) 1 cap FS .PER PROTOCOL PRN PRN Reason: TUBE OCCLUSION PROTOCOL Aspirin (Aspirin) 325 mg PER TUBE DAILY [facility] Last Admin: 03/05/18 08:47 Dose: 325 mg Clonidine (Catapres) 0.1 mg PO Q4H PRN PRN Reason: Systolic BP > 180 Famotidine (Pepcid) 20 mg PER TUBE Q12HR [facility] Last Admin: 03/05/18 08:47 Dose: 20 mg Furosemide (Lasix) 40 mg SLOW IVP 0600,1400 [facility] Last Admin: 03/05/18 13:26 Dose: 40 mg Heparin Sodium (Porcine) (Heparin 1,000 Units/Ml (10 Ml)) 0 units SLOW IVP ASDIR HEIKE PRN Reason: Protocol Last Admin: 03/04/18 05:30 Dose: 4,000 unit Hydralazine HCl (Apresoline) 10 mg SLOW IVP Q4H PRN PRN Reason: Systolic BP > 180 Ceftriaxone Sodium 2 gm/ (Sodium Chloride) 100 mls @ 200 mls/hr IVPB Q24HR [facility] Last Admin: 03/05/18 03:06 Dose: 100 mls Potassium Chloride 40 meq/ (Sodium Chloride) 270 mls @ 135 mls/hr IVPB ASDIR PRN PRN Reason: FOR SERUM K+ 2.5 - 3.5 Last Admin: 02/28/18 06:18 Dose: 270 mls Potassium Chloride 40 meq/ (Device) 100 mls @ 50 mls/hr IVPB ASDIR PRN PRN Reason: FOR SERUM K+ 2.5 - 3.5 Magnesium Sulfate 1 gm/ Sodium (Chloride) 102 mls @ 102 mls/hr IV PRN PRN PRN Reason: MAG LEVEL 1.4 - 2.0 Magnesium Sulfate 2 gm/ Device 100 mls @ 100 mls/hr IVPB ASDIR PRN PRN Reason: MAGNESIUM < 1.4 Potassium Phosphate 9 mmol/ (Sodium Chloride) 103 mls @ 25.75 mls/hr IVPB ASDIR PRN PRN Reason: Phosphate 1.0-1.8 Potassium Phosphate 12 mmol/ (Sodium Chloride) 254 mls @ 63.5 mls/hr IV ASDIR PRN PRN Reason: Serum phosphate 0.5-0.9 Potassium Phosphate 15 mmol/ (Sodium Chloride) 255 mls @ 63.75 mls/hr IV ASDIR PRN PRN Reason: Serum Phos < 0.5 Fentanyl Citrate 2,000 mcg/ (Sodium Chloride) 100 mls @ 0 mls/hr IV INF [facility]; Per Protocol PRN Reason: Protocol Stop: 03/28/18 04:00 Fentanyl Citrate (Fentanyl Bolus) 250 mls @ 0 mls/hr IVPB PRN PRN; As Directed PRN Reason: Breakthrough pain/agitation Stop: 03/28/18 04:00 Heparin Sodium/Dextrose (Heparin 25,000 Units/D5w 500 Ml) 500 mls @ 0 mls/hr IVPB INF [facility]IKE; Per Protocol PRN Reason: Protocol Last Admin: 03/05/18 14:46 Dose: 500 mls Magnesium Oxide (Magnesium Oxide) 400 mg PO BIDPRN PRN PRN Reason: FOR SERUM MAG 1.4 - 2.0 Magnesium Oxide (Magnesium Oxide) 800 mg PO PRN PRN PRN Reason: FOR SERUM MAG < 1.4 Miscellaneous Medication (Phos-Nak) 1 pkt PO TIDPRN PRN PRN Reason: FOR PHOS LEVEL 1.0 - 1.8 Miscellaneous Medication (Phos-Nak) 2 pkt PO TIDPRN PRN PRN Reason: FOR PHOS LEVEL 0.5 - 1.0 Morphine Sulfate (Morphine) 2 mg SLOW IVP Q1H PRN PRN Reason: breakthrough pain/agitation Stop: 03/28/18 04:00 Last Admin: 03/05/18 09:47 Dose: 2 mg Ondansetron HCl (Zofran Odt) 4 mg PO Q6H PRN PRN Reason: Nausea/Vomiting Ondansetron HCl (Zofran) 4 mg IVP Q6H PRN PRN Reason: Nausea/Vomiting Potassium Chloride (K-Dur) 40 meq PO ASDIR PRN PRN Reason: FOR SERUM K+ 2.5 - 3.5 Last Admin: 03/04/18 06:43 Dose: 40 meq Potassium Chloride (Klor-Con) 40 meq PER TUBE ASDIR PRN PRN Reason: FOR SERUM K+ 2.5-3.5 Last Admin: 03/05/18 13:35 Dose: 40 meq Propofol (Diprivan) 1,000 mg IV INF PRN; Protocol PRN Reason: TO ACHIEVE GOAL RASS Stop: 03/28/18 04:00 Last Admin: 03/05/18 03:06 Dose: 1,000 mg Propofol (Diprivan Bolus) 20 mg IV Q5MIN PRN PRN Reason: BREAKTHROUGH AGITATION Stop: 03/28/18 04:00 Sodium Bicarbonate (Bicarbonate, Sodium) 650 mg PER TUBE .PER PROTOCOL PRN PRN Reason: ENTERAL TUBE OCCLUSION Sodium Chloride (Flush - Normal Saline) 10 ml IVF Q12HR [facility] Last Admin: 03/05/18 08:47 Dose: 10 ml Sodium Chloride (Flush - Normal Saline) 10 ml IVF PRN PRN PRN Reason: Saline Flush
[2018-03-06] MEDS: cefTRIAXone\\ROCEPHIN 2 GM in Sodium Chloride 0.9% 100 ML IVPB SCH (04:41)
[2018-03-06 04:59] LABS: Anion Gap 13 mmol/L (10-20); BUN (Urea Nitrogen) 18 mg/dL (9.8-20.1); Calc. Creatinine Clearance 244 mL/min (70-130); Calcium 9.3 mg/dL (7.8-10.44); Carbon Dioxide 35 mmol/L (23-31); Chloride 94 mmol/L (98-107); Estimated GFR-MDRD 75; Glucose 99 mg/dL (80-115); Potassium 3.4 mmol/L (3.5-5.1); Sodium 139 mmol/L (136-145)
[2018-03-06] MEDS: Furosemide 40 MG/4 ML VIAL SLOW IVP SCH ×2 (06:03→14:47)
[2018-03-06] MEDS: Heparin 25,000 units/D5W 500 ML IVPB SCH (06:03)
[2018-03-06] MEDS: Morphine 4 MG/ML VIAL SLOW IVP PRN ×2 (06:11→17:05)
--- NOTE | 2018-03-06 07:55 | PRG ---
DATE OF SERVICE: 03/06/2018 Thirty-five minutes critical care time. SUBJECTIVE: The patient remains intubated on mechanical ventilation. There have been no acute castellano es overnight. PHYSICAL EXAMINATION: VITAL SIGNS: Temperature is 97.5, pulse 95, blood pressure 126/65. A 24-hour intake 1057, output 20 71. HEENT: Unremarkable. NECK: No JVD. CHEST: Clear, but distant. CARDIAC: S1 and S2 regular. ABDOMEN: Soft, obese. EXTREMITIES: Edematous. LABORATORY DATA: Sodium 139, potassium 3.4, chloride 94, CO2 35, BUN 18, creatinine 0.7, glucose 99. PTT 84.3. Hemoglobin 12.7, hematocrit 42.2, platelet count 77. ASSESSMENT: 1. Morbid obesity. 2. Obstructive sleep apnea/obesity hypoventilation syndrome. 3. Acute on chronic respiratory failure requiring mechanical ventilation. 4. Elevated pulmonary pressures, which I think is probably indicative of sleep apnea. 4. Thrombocytopenia with declining platelet count on heparin drip, but with negative heparin induced thrombocytopenia profile. RECOMMENDATIONS: 1. I would go ahead and stop the heparin drip and put her on Lovenox at a prophylactic dose rather t landon a therapeutic dose. 2. I tried to communicate with the patient this morning. She is off sedation. She indicated to me that she would want a tracheostomy placed. I never cannot really tell for sure whether the patient i s making good decisions while there on the ventilator. The patient's children are supposed to come i n this weekend and sit down with palliative care and help make this decision, but I think if at all p ossible, the patient should be allowed to make the decision for herself. 3. Check ABG tomorrow. 4. If the patient wants to proceed with trach, then Surgery would need to be consulted this weekend with plans to do the trach early next week.
[2018-03-06] MEDS: Enoxaparin Sodium 40 MG/0.4 ML SYRINGE SC SCH (09:34)
[2018-03-06] MEDS: Famotidine 20 MG TAB PER TUBE SCH ×2 (09:35→20:26)
[2018-03-06] MEDS: Aspirin 325 MG TAB PER TUBE SCH (09:35)
[2018-03-06 11:20] LABS: Heparin-Induced Ab (HITA) Negative (.)
[2018-03-07] MEDS: Morphine 4 MG/ML VIAL SLOW IVP PRN ×2 (01:47→14:30)
[2018-03-07 04:45] LABS: Anion Gap 14 mmol/L (10-20); BUN (Urea Nitrogen) 18 mg/dL (9.8-20.1); Calc. Creatinine Clearance 244 mL/min (70-130); Calcium 9.4 mg/dL (7.8-10.44); Carbon Dioxide 34 mmol/L (23-31); Chloride 94 mmol/L (98-107); Estimated GFR-MDRD 75; Glucose 100 mg/dL (80-115); Potassium 3.8 mmol/L (3.5-5.1); Sodium 138 mmol/L (136-145)
[2018-03-07] MEDS: Furosemide 40 MG/4 ML VIAL SLOW IVP SCH ×2 (05:04→14:22)
[2018-03-07 05:51] LABS: Band 4 % (5-11); Hemoglobin 12.2 g/dL (12.0-16.0); Lymphocytes 28 % (21-51); MDiff Complete? YES; Mean Corpuscular HGB CONC 29.8 g/dL (32.0-36.0); Mean Corpuscular Volume 80.6 fl (81.0-99.0); Mean Platelet Volume 6.8 fL (7.4-10.4); Monocytes 6 % (0-10); Neutrophil 62 % (42-75); PLT Morphology Comment Appears Decreased; Platelet Count 72 thou/uL (130-400); RBC Distribution Width 18.8 % (11.5-14.5); Red Blood Cell (RBC) Count 5.06 mill/uL (4.20-5.40)
[2018-03-07 07:33] LABS: CO2 Tension 57.2 mmHg (35.0-45.0); pH, Arterial 7.44 (7.35-7.45)
[2018-03-07 07:34] LABS: Actual Bicarbonate (HCO3a) 37.7 mEq/L (22-26); Base Excess (BEa) 11.5 mEq/L (0 (+/-) 2.5)
[2018-03-07 07:35] LABS: Hematocrit-ABG 44.6 % (36.0-47.0); Hemoglobin (Hb) 11.9 g/dL (12.0-16.0)
[2018-03-07 07:37] LABS: Calcium, Ionized 1.2 mmol/L (1.12-1.30); Puncture Site RRA
--- NOTE | 2018-03-07 12:03 | PDOC.CTH ---
Cardiology Progress Note - Subjective She is much more awake today. Her family is at bedside and had several questions about her Trach which I deffered mostly to pulmonary as they feel threy have been told several different things in the past about the trach. - Objective Vital Signs Temp Pulse Resp BP 03/07/18 10:16 97 123/68 03/07/18 08:00 98.6 F 19 03/07/18 07:02 94 126/76 03/07/18 06:00 17 03/07/18 04:00 98.2 F 20 03/07/18 02:41 97 03/07/18 02:00 16 03/07/18 00:22 92 Admit Weight 600 lb Weight 450 lb 6.47 oz 03/06/18 03/07/18 03/08/18 06:59 06:59 06:59 Intake Total 1979 1377 30 Output Total 2 2960 250 Balance -695 -6514 -220 - Physical Examination General/Neuro: NAD, other: (awake , following commands. ) Neck: no JVD present Lungs: CTA, unlabored respirations Heart: RRR Abdomen: NT/ND Extremities: + edema B (2+) - Telemetry Telemetry Rhythm: NSR, Non sustined VT - Labs Result Diagrams: 03/07/18 05:05 03/07/18 04:26 Troponin/CKMB CK-MB (CK-2) 2.9 ng/mL (0-6.6) 02/26/18 01:05 Troponin I 0.180 ng/mL (< 0.028) H 02/26/18 06:57 - Assessment/Plan 1. Acute hypoxic hypercapnic respiratory insufficiency 2. Acute on chronic RV dysfunction. 3. Acute on chronic diastolic heart failure 4. Morbid obesity, BMI 103 5. Pickwickian syndrome 6. Hypokalemia 7. Non sustained VT. PLAN: - Continue IV lasix. - Continue heparin gtt, would recommend at least 3 months of anticoagulation, likely will transition to PO. May stop for Trach and peg when time comes. - Replace K. - Continue supportive care. - Spoke with family about possible trach and peg which is what she will most likely need for alf weaning.
[2018-03-07] MEDS: Enoxaparin Sodium 40 MG/0.4 ML SYRINGE SC SCH (12:35)
[2018-03-07] MEDS: Famotidine 20 MG TAB PER TUBE SCH ×2 (12:36→21:14)
[2018-03-07] MEDS: Aspirin 325 MG TAB PER TUBE SCH (12:36)
--- NOTE | 2018-03-07 13:32 | PRG ---
DATE OF SERVICE: 03/07/2018 SUBJECTIVE: The patient is 450 pounds, BMI 77. Intubated on the vent. Awake, responsive. Several family members and kids are here. They are yet to make a decision regarding a trach. She is clearly not weanable at this stage. OBJECTIVE: VITAL SIGNS: Pulse is 100, blood pressure 121/78, sats are 93%, respiration 26. CHEST: Chest reveals decreased breath sounds without any wheezing. CARDIAC: Normal S1, S2, no gallops. ABDOMEN: Massive. LABORATORY DATA: White count 4000, H and H is 12 and 40, platelet count is 72,000. PO2 is 62, pCO2 of 57%. Electrolytes are normal. IMPRESSION: Morbid obesity, respiratory failure, diastolic dysfunction, elevated PA pressures. PLAN: She is on Lovenox, supportive care, and PT. Await input from family regarding ongoing care. [id number] critical care time.
[2018-03-08] MEDS: Amiodarone HCl 450 MG, Admixture Fee 1 EACH in Dextrose 5% in Water 250 ML IVPB SCH ×2 (04:56→14:17)
[2018-03-08 05:05] LABS: #Eosinphils 0.1 thou/uL (0.0-0.7); #Lymphocytes 0.7 thou/uL (1.20-3.40); #Monocytes 0.5 thou/uL (0.11-0.59); #Neutrophils 2.3 thou/uL (1.40-6.50); %Basophils 0.4 % (0.0-1.0); %Eosinophils 3.5 % (0.0-10.0); %Lymphocytes 19.7 % (21.0-51.0); %Monocytes 12.9 % (0.0-10.0); %Neutrophils 63.5 % (42.0-75.0); Hemoglobin 11.9 g/dL (12.0-16.0); Mean Corpuscular Hemoglobin 24.9 pg (27.0-31.0); Mean Corpuscular Volume 80.2 fl (81.0-99.0); Mean Platelet Volume 5.9 fL (7.4-10.4); Platelet Count 68 thou/uL (130-400); RBC Distribution Width 18.9 % (11.5-14.5); Red Blood Cell (RBC) Count 4.78 mill/uL (4.20-5.40); White Blood Cell (WBC) Count 3.7 thou/uL (4.8-10.8)
[2018-03-08 05:15] LABS: Anion Gap 8 mmol/L (10-20); BUN (Urea Nitrogen) 18 mg/dL (9.8-20.1); Calc. Creatinine Clearance 247 mL/min (70-130); Calcium 9.4 mg/dL (7.8-10.44); Carbon Dioxide 37 mmol/L (23-31); Chloride 95 mmol/L (98-107); Estimated GFR-MDRD 76; Glucose 92 mg/dL (80-115); Sodium 137 mmol/L (136-145)
[2018-03-08] MEDS: Furosemide 40 MG/4 ML VIAL SLOW IVP SCH ×2 (06:03→14:15)
--- NOTE | 2018-03-08 07:20 | PDOC.PN ---
- Subjective Encounter Start Date: 03/06/18 Encounter Start Time: 12:00 -: non-verbal Pt Remains intubated but off of sedation, She is Able to respond to commands, Plan to discuss with Pts family tomrow. - Objective Resuscitation Status: Resuscitation Status FULL:Full Resuscitation Vital Signs & Weight: Vital Signs (12 hours) Temp Pulse Resp Pulse Ox 03/08/18 06:00 20 03/08/18 05:00 99.8 F H 03/08/18 04:00 20 03/08/18 03:01 98 03/08/18 02:00 20 03/08/18 00:00 93 L 03/07/18 23:48 19 03/07/18 23:44 100.1 F H 03/07/18 22:00 16 03/07/18 21:56 94 03/07/18 20:00 98.3 F 87 16 91 L Weight Admit Weight 600 lb Weight 450 lb 6.47 oz Most Recent Monitor Data Heart Rate from ECG 134 NIBP 100/60 NIBP BP-Mean 70 Respiration from ECG 23 SpO2 90 I&O: 03/07/18 03/08/18 03/09/18 06:59 06:59 06:59 Intake Total 1377 1038.4 Output Total 2960 2180 Balance -1583 -1141.6 Result Diagrams: 03/08/18 04:48 03/08/18 04:48 Radiology Reviewed by me: Yes Phys Exam - Physical Examination HEENT: PERRLA, moist MMs Neck: no nodes, no JVD Respiratory: no wheezing, no rales Cardiovascular: RRR, no significant murmur Gastrointestinal: soft, non-tender Musculoskeletal: edema present Neurological: non-focal, normal sensation Skin: no rash, normal turgor Dx/Plan (1) Acute idiopathic thrombocytopenic purpura Code(s): D69.3 - IMMUNE THROMBOCYTOPENIC PURPURA Status: Acute Comment: Paient has Drop in Plaelets >50% since admisison,remained stbale Now. HIT was negative. (2) Acute and chronic respiratory failure Code(s): J96.20 - ACUTE AND CHR RESP FAILURE, UNSP W HYPOXIA OR HYPERCAPNIA Status: Acute Qualifiers: Respiratory failure complication: hypercapnia Qualified Code(s): J96.22 - Acute and chronic respiratory failure with hypercapnia Comment: Will likely need tracheostomy per pulmonary if needed half-way ventilation. High risk for pneumonia.Plan to Discuss with Family tomorow and consult Surgery. (3) Acute on chronic diastolic (congestive) heart failure Code(s): I50.33 - ACUTE ON CHRONIC DIASTOLIC (CONGESTIVE) HEART FAILURE Status : Acute Comment: continue IV lasix (4) Hypokalemia Code(s): E87.6 - HYPOKALEMIA Status: Acute Comment: continue electrolyte replacement protocol (5) Morbid obesity with BMI of 70 and over, adult Code(s): E66.01 - MORBID (SEVERE) OBESITY DUE TO EXCESS CALORIES; Z68.45 - BODY MASS INDEX (BMI) 70 OR GREATER, ADULT Status: Chronic (6) Pickwickian syndrome Code(s): E66.2 - MORBID (SEVERE) OBESITY WITH ALVEOLAR HYPOVENTILATION Status : Chronic (7) Pulmonary embolism Code(s): I26.99 - OTHER PULMONARY EMBOLISM WITHOUT ACUTE COR PULMONALE Status : Suspected Comment: continue heparin drip per DVT/PE protocol - Plan cont current plan of care, 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 - Discharge Day Encounter end time: 12:30 Review of Systems - Review of Systems Other: Unable to do ROS due to Intubation - Medications/Allergies Allergies/Adverse Reactions: Allergies Allergy/AdvReac Type Severity Reaction Status Date / Time No Known Drug Allergies Allergy Unverified 02/26/18 01:50 Medications: Current Medications Acetaminophen (Tylenol) 1,000 mg PER TUBE Q6H PRN PRN Reason: Headache/Fever or Mild Pain Lipase/Protease/Amylase (Deonna Anderson 76915) 1 cap FS .PER PROTOCOL PRN PRN Reason: TUBE OCCLUSION PROTOCOL Aspirin (Aspirin) 325 mg PER TUBE DAILY [facility] Last Admin: 03/07/18 12:36 Dose: 325 mg Clonidine (Catapres) 0.1 mg PO Q4H PRN PRN Reason: Systolic BP > 180 Enoxaparin Sodium (Lovenox) 40 mg SC 0900 [facility] Last Admin: 03/07/18 12:35 Dose: 40 mg Famotidine (Pepcid) 20 mg PER TUBE Q12HR [facility] Last Admin: 03/07/18 21:14 Dose: 20 mg Furosemide (Lasix) 40 mg SLOW IVP 0600,1400 [facility] Last Admin: 05/06/18 06:03 Dose: 40 mg Hydralazine HCl (Apresoline) 10 mg SLOW IVP Q4H PRN PRN Reason: Systolic BP > 180 Potassium Chloride 40 meq/ (Sodium Chloride) 270 mls @ 135 mls/hr IVPB ASDIR PRN PRN Reason: FOR SERUM K+ 2.5 - 3.5 Last Admin: 02/28/18 06:18 Dose: 270 mls Potassium Chloride 40 meq/ (Device) 100 mls @ 50 mls/hr IVPB ASDIR PRN PRN Reason: FOR SERUM K+ 2.5 - 3.5 Magnesium Sulfate 1 gm/ Sodium (Chloride) 102 mls @ 102 mls/hr IV PRN PRN PRN Reason: MAG LEVEL 1.4 - 2.0 Magnesium Sulfate 2 gm/ Device 100 mls @ 100 mls/hr IVPB ASDIR PRN PRN Reason: MAGNESIUM < 1.4 Potassium Phosphate 9 mmol/ (Sodium Chloride) 103 mls @ 25.75 mls/hr IVPB ASDIR PRN PRN Reason: Phosphate 1.0-1.8 Potassium Phosphate 12 mmol/ (Sodium Chloride) 254 mls @ 63.5 mls/hr IV ASDIR PRN PRN Reason: Serum phosphate 0.5-0.9 Potassium Phosphate 15 mmol/ (Sodium Chloride) 255 mls @ 63.75 mls/hr IV ASDIR PRN PRN Reason: Serum Phos < 0.5 Amiodarone HCl 450 mg/Miscellaneous Medication 1 each/ Dextrose/Water 259 mls @ 0 mls/hr IVPB INF [facility]; As Directed PRN Reason: Protocol Last Admin: 03/08/18 04:56 Dose: 259 mls Magnesium Oxide (Magnesium Oxide) 400 mg PO BIDPRN PRN PRN Reason: FOR SERUM MAG 1.4 - 2.0 Magnesium Oxide (Magnesium Oxide) 800 mg PO PRN PRN PRN Reason: FOR SERUM MAG < 1.4 Miscellaneous Medication (Phos-Nak) 1 pkt PO TIDPRN PRN PRN Reason: FOR PHOS LEVEL 1.0 - 1.8 Miscellaneous Medication (Phos-Nak) 2 pkt PO TIDPRN PRN PRN Reason: FOR PHOS LEVEL 0.5 - 1.0 Ondansetron HCl (Zofran Odt) 4 mg PO Q6H PRN PRN Reason: Nausea/Vomiting Ondansetron HCl (Zofran) 4 mg IVP Q6H PRN PRN Reason: Nausea/Vomiting Potassium Chloride (K-Dur) 40 meq PO ASDIR PRN PRN Reason: FOR SERUM K+ 2.5 - 3.5 Last Admin: 03/04/18 06:43 Dose: 40 meq Potassium Chloride (Klor-Con) 40 meq PER TUBE ASDIR PRN PRN Reason: FOR SERUM K+ 2.5-3.5 Last Admin: 03/08/18 06:14 Dose: 40 meq Propofol (Diprivan) 1,000 mg IV INF PRN; Protocol PRN Reason: TO ACHIEVE GOAL RASS Stop: 03/28/18 04:00 Last Admin: 03/05/18 03:06 Dose: 1,000 mg Propofol (Diprivan Bolus) 20 mg IV Q5MIN PRN PRN Reason: BREAKTHROUGH AGITATION Stop: 03/28/18 04:00 Sodium Bicarbonate (Bicarbonate, Sodium) 650 mg PER TUBE .PER PROTOCOL PRN PRN Reason: ENTERAL TUBE OCCLUSION Sodium Chloride (Flush - Normal Saline) 10 ml IVF Q12HR [facility] Last Admin: 03/07/18 21:14 Dose: 10 ml Sodium Chloride (Flush - Normal Saline) 10 ml IVF PRN PRN PRN Reason: Saline Flush
--- NOTE | 2018-03-08 07:25 | PDOC.PN ---
- Subjective Encounter Start Date: 03/07/18 Encounter Start Time: 12:00 Chriss is seen today, alert and oriented, remains intubated off of sedation on Mechanical ventilation, discussed with Two sons who came from [place], Explaiend about the need for tracheaostomy. had Questions abou the Tracheostomy and care with tracheostomy tube, advised to discuss with Pulmonary regarding that, they will have family meeting with Dr. Osman today. - Objective Resuscitation Status: Resuscitation Status FULL:Full Resuscitation Vital Signs & Weight: Vital Signs (12 hours) Temp Pulse Resp Pulse Ox 03/08/18 06:00 20 03/08/18 05:00 99.8 F H 03/08/18 04:00 20 03/08/18 03:01 98 03/08/18 02:00 20 03/08/18 00:00 93 L 03/07/18 23:48 19 03/07/18 23:44 100.1 F H 03/07/18 22:00 16 03/07/18 21:56 94 03/07/18 20:00 98.3 F 87 16 91 L Weight Admit Weight 600 lb Weight 450 lb 6.47 oz Most Recent Monitor Data Heart Rate from ECG 134 NIBP 100/60 NIBP BP-Mean 70 Respiration from ECG 23 SpO2 90 I&O: 03/07/18 03/08/18 03/09/18 06:59 06:59 06:59 Intake Total 1377 1038.4 Output Total 2960 2180 Balance -1583 -1141.6 Result Diagrams: 03/08/18 04:48 03/08/18 04:48 Radiology Reviewed by me: Yes Phys Exam - Physical Examination HEENT: PERRLA, moist MMs Neck: no nodes, no JVD Respiratory: no wheezing, no rales Cardiovascular: RRR, no significant murmur Gastrointestinal: soft, non-tender Musculoskeletal: no edema, pulses present Neurological: non-focal, normal sensation Lymphatic: no nodes Psychiatric: normal affect, A&O x 3 Skin: no rash, normal turgor Dx/Plan (1) Acute idiopathic thrombocytopenic purpura Code(s): D69.3 - IMMUNE THROMBOCYTOPENIC PURPURA Status: Acute Comment: Paient has Drop in Plaelets >50% since admisison,remained stbale Now. HIT was negative.Stbale at 73 now. 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 High risk for pneumonia.Discussed with Family. family meeting with Dr. Osman, Pt and Family ddi agree for tracheostomy but they have still some specific questions about the care of tracheostomy as they want to decide on what care her mother would be needed. (3) Acute on chronic diastolic (congestive) heart failure Code(s): I50.33 - ACUTE ON CHRONIC DIASTOLIC (CONGESTIVE) HEART FAILURE Status : Acute Comment: continue IV lasix (4) Hypokalemia Code(s): E87.6 - HYPOKALEMIA Status: Acute Comment: continue electrolyte replacement protocol (5) Morbid obesity with BMI of 70 and over, adult Code(s): E66.01 - MORBID (SEVERE) OBESITY DUE TO EXCESS CALORIES; Z68.45 - BODY MASS INDEX (BMI) 70 OR GREATER, ADULT Status: Chronic (6) Pickwickian syndrome Code(s): E66.2 - MORBID (SEVERE) OBESITY WITH ALVEOLAR HYPOVENTILATION Status : Chronic (7) Pulmonary embolism Code(s): I26.99 - OTHER PULMONARY EMBOLISM WITHOUT ACUTE COR PULMONALE Status : Suspected Comment: continue heparin drip per DVT/PE protocol - Plan cont current plan of care, PT/OT, 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 - Discharge Day Encounter end time: 12:35 Review of Systems - Review of Systems Other: Unable to ge ROS as p is intubated. - Medications/Allergies Allergies/Adverse Reactions: Allergies Allergy/AdvReac Type Severity Reaction Status Date / Time No Known Drug Allergies Allergy Unverified 02/26/18 01:50 Medications: Current Medications Acetaminophen (Tylenol) 1,000 mg PER TUBE Q6H PRN PRN Reason: Headache/Fever or Mild Pain Lipase/Protease/Amylase (Deonna Anderson 35625) 1 cap FS .PER PROTOCOL PRN PRN Reason: TUBE OCCLUSION PROTOCOL Aspirin (Aspirin) 325 mg PER TUBE DAILY [facility] Last Admin: 03/07/18 12:36 Dose: 325 mg Clonidine (Catapres) 0.1 mg PO Q4H PRN PRN Reason: Systolic BP > 180 Enoxaparin Sodium (Lovenox) 40 mg SC 0900 [facility] Last Admin: 03/07/18 12:35 Dose: 40 mg Famotidine (Pepcid) 20 mg PER TUBE Q12HR [facility] Last Admin: 03/07/18 21:14 Dose: 20 mg Furosemide (Lasix) 40 mg SLOW IVP 0600,1400 [facility] Last Admin: 03/08/18 06:03 Dose: 40 mg Hydralazine HCl (Apresoline) 10 mg SLOW IVP Q4H PRN PRN Reason: Systolic BP > 180 Potassium Chloride 40 meq/ (Sodium Chloride) 270 mls @ 135 mls/hr IVPB ASDIR PRN PRN Reason: FOR SERUM K+ 2.5 - 3.5 Last Admin: 02/28/18 06:18 Dose: 270 mls Potassium Chloride 40 meq/ (Device) 100 mls @ 50 mls/hr IVPB ASDIR PRN PRN Reason: FOR SERUM K+ 2.5 - 3.5 Magnesium Sulfate 1 gm/ Sodium (Chloride) 102 mls @ 102 mls/hr IV PRN PRN PRN Reason: MAG LEVEL 1.4 - 2.0 Magnesium Sulfate 2 gm/ Device 100 mls @ 100 mls/hr IVPB ASDIR PRN PRN Reason: MAGNESIUM < 1.4 Potassium Phosphate 9 mmol/ (Sodium Chloride) 103 mls @ 25.75 mls/hr IVPB ASDIR PRN PRN Reason: Phosphate 1.0-1.8 Potassium Phosphate 12 mmol/ (Sodium Chloride) 254 mls @ 63.5 mls/hr IV ASDIR PRN PRN Reason: Serum phosphate 0.5-0.9 Potassium Phosphate 15 mmol/ (Sodium Chloride) 255 mls @ 63.75 mls/hr IV ASDIR PRN PRN Reason: Serum Phos < 0.5 Amiodarone HCl 450 mg/Miscellaneous Medication 1 each/ Dextrose/Water 259 mls @ 0 mls/hr IVPB INF HEIKE; As Directed PRN Reason: Protocol Last Admin: 03/08/18 04:56 Dose: 259 mls Magnesium Oxide (Magnesium Oxide) 400 mg PO BIDPRN PRN PRN Reason: FOR SERUM MAG 1.4 - 2.0 Magnesium Oxide (Magnesium Oxide) 800 mg PO PRN PRN PRN Reason: FOR SERUM MAG < 1.4 Miscellaneous Medication (Phos-Nak) 1 pkt PO TIDPRN PRN PRN Reason: FOR PHOS LEVEL 1.0 - 1.8 Miscellaneous Medication (Phos-Nak) 2 pkt PO TIDPRN PRN PRN Reason: FOR PHOS LEVEL 0.5 - 1.0 Ondansetron HCl (Zofran Odt) 4 mg PO Q6H PRN PRN Reason: Nausea/Vomiting Ondansetron HCl (Zofran) 4 mg IVP Q6H PRN PRN Reason: Nausea/Vomiting Potassium Chloride (K-Dur) 40 meq PO ASDIR PRN PRN Reason: FOR SERUM K+ 2.5 - 3.5 Last Admin: 03/04/18 06:43 Dose: 40 meq Potassium Chloride (Klor-Con) 40 meq PER TUBE ASDIR PRN PRN Reason: FOR SERUM K+ 2.5-3.5 Last Admin: 03/08/18 06:14 Dose: 40 meq Propofol (Diprivan) 1,000 mg IV INF PRN; Protocol PRN Reason: TO ACHIEVE GOAL RASS Stop: 03/28/18 04:00 Last Admin: 03/05/18 03:06 Dose: 1,000 mg Propofol (Diprivan Bolus) 20 mg IV Q5MIN PRN PRN Reason: BREAKTHROUGH AGITATION Stop: 03/28/18 04:00 Sodium Bicarbonate (Bicarbonate, Sodium) 650 mg PER TUBE .PER PROTOCOL PRN PRN Reason: ENTERAL TUBE OCCLUSION Sodium Chloride (Flush - Normal Saline) 10 ml IVF Q12HR [facility] Last Admin: 03/07/18 21:14 Dose: 10 ml Sodium Chloride (Flush - Normal Saline) 10 ml IVF PRN PRN PRN Reason: Saline Flush
[2018-03-08] MEDS: Famotidine 20 MG TAB PER TUBE SCH ×2 (10:11→20:56)
[2018-03-08] MEDS: Aspirin 325 MG TAB PER TUBE SCH (10:11)
[2018-03-08] MEDS: Enoxaparin Sodium 40 MG/0.4 ML SYRINGE SC SCH (10:12)
--- NOTE | 2018-03-08 11:09 | PRG ---
DATE OF SERVICE: 03/08/2018 SUBJECTIVE: Awake, alert, responsive, on the vent. Denies any pain or discomfort. OBJECTIVE: VITAL SIGNS: Blood pressure is 147/56, pulse 110, sats are 95%. CHEST: Decreased breath sounds, no wheezing. CARDIAC: Normal S1, S2, no gallops. ABDOMEN: Soft, no masses. LABORATORY DATA: Potassium 3. Electrolytes are normal. BUN and creatinine are normal. White count 3000, H&H is 11 and 38. IMPRESSION: Morbid obesity, sleep apnea, respiratory failure. PLAN: The patient wants to be trached. She is still on amiodarone for ventricular arrhythmias. Continue supportive care. Trach in the next 24-48 hours. One-half hour critical care time.
--- NOTE | 2018-03-08 11:45 | PDOC.CTH ---
Cardiology Progress Note - Subjective She went into Afib overnight, well controlled on amio drip. She is awake and following commands. - Objective Vital Signs Temp Pulse Resp BP Pulse Ox 03/08/18 11:38 95 119/46 L 03/08/18 10:00 20 03/08/18 08:26 136 H 147/56 H 03/08/18 08:00 99.3 F 23 H 03/08/18 06:00 20 03/08/18 05:00 99.8 F H 03/08/18 04:00 20 03/08/18 03:01 98 03/08/18 02:00 20 03/08/18 00:00 93 L 03/07/18 23:48 19 03/07/18 23:44 100.1 F H Admit Weight 600 lb Weight 450 lb 6.47 oz 03/07/18 03/08/18 03/09/18 06:59 06:59 06:59 Intake Total 1377 1038.4 40 Output Total 2960 2180 180 Balance -1583 -1141.6 -140 - Physical Examination General/Neuro: NAD Neck: no JVD present Lungs: unlabored respirations Heart: other: (Irreg HR 90's. ) Abdomen: NT/ND Extremities: + edema B (1+) - Telemetry Telemetry Rhythm: Afib. - Labs Result Diagrams: 03/08/18 04:48 03/08/18 04:48 Troponin/CKMB CK-MB (CK-2) 2.9 ng/mL (0-6.6) 02/26/18 01:05 Troponin I 0.180 ng/mL (< 0.028) H 02/26/18 06:57 - Assessment/Plan 1. Acute hypoxic hypercapnic respiratory insufficiency 2. Acute on chronic RV dysfunction. 3. Acute on chronic diastolic heart failure 4. Morbid obesity, BMI 103 5. Pickwickian syndrome 6. Hypokalemia 7. Afib RVR, rate controlled, now. PLAN: - Continue IV lasix. - Continue heparin gtt. - Continue amiodarone drip, likely afib due to hypokalemia. - Replace K aggressively. - Continue supportive care.
[2018-03-08] MEDS ORDERED: Potassium Chloride 20 MEQ TAB PO SCH (12:00)
--- NOTE | 2018-03-08 12:32 | PDOC.PN ---
- Subjective Encounter Start Date: 03/08/18 Encounter Start Time: 10:00 Patient is non verbal due to intubation, but she is responding to questions. Alert and off of Sedation. - Objective Resuscitation Status: Resuscitation Status FULL:Full Resuscitation MAR Reviewed: Yes Vital Signs & Weight: Vital Signs (12 hours) Temp Pulse Resp BP 03/08/18 11:38 95 119/46 L 03/08/18 10:00 20 03/08/18 08:26 136 H 147/56 H 03/08/18 08:00 99.3 F 23 H 03/08/18 06:00 20 03/08/18 05:00 99.8 F H 03/08/18 04:00 20 03/08/18 03:01 98 03/08/18 02:00 20 Weight Admit Weight 600 lb Weight 450 lb 6.47 oz Most Recent Monitor Data Heart Rate from ECG 96 NIBP 93/44 NIBP BP-Mean 63 Respiration from ECG 25 SpO2 89 I&O: 03/07/18 03/08/18 03/09/18 06:59 06:59 06:59 Intake Total 1377 1038.4 40 Output Total 2960 2180 180 Balance -1583 -1141.6 -140 Result Diagrams: 03/08/18 04:48 03/08/18 04:48 Radiology Reviewed by me: Yes Phys Exam - Physical Examination HEENT: PERRLA, moist MMs Neck: no nodes, no JVD Respiratory: no wheezing, no rales Cardiovascular: no significant murmur, irregular Gastrointestinal: soft, non-tender Musculoskeletal: pulses present, edema present Neurological: non-focal, normal sensation Lymphatic: no nodes Dx/Plan (1) Acute idiopathic thrombocytopenic purpura Code(s): D69.3 - IMMUNE THROMBOCYTOPENIC PURPURA Status: Acute Comment: Paient has Drop in Plaelets >50% since admisison,remained stbale Now. HIT was negative.Stbale at 73 now. COnsulted Oncology for Thrombocytopenia. (2) Acute and chronic respiratory failure Code(s): J96.20 - ACUTE AND CHR RESP FAILURE, UNSP W HYPOXIA OR HYPERCAPNIA Status: Acute Qualifiers: Respiratory failure complication: hypercapnia Qualified Code(s): J96.22 - Acute and chronic respiratory failure with hypercapnia Comment: Planned for Tracheostomy on friday or if Platelefts are normalized. Will continue on Vent per pulmonary.. (3) Acute on chronic diastolic (congestive) heart failure Code(s): I50.33 - ACUTE ON CHRONIC DIASTOLIC (CONGESTIVE) HEART FAILURE Status : Acute Comment: continue IV lasix (4) Hypokalemia Code(s): E87.6 - HYPOKALEMIA Status: Acute Comment: continue electrolyte replacement protocol (5) Morbid obesity with BMI of 70 and over, adult Code(s): E66.01 - MORBID (SEVERE) OBESITY DUE TO EXCESS CALORIES; Z68.45 - BODY MASS INDEX (BMI) 70 OR GREATER, ADULT Status: Chronic (6) Pickwickian syndrome Code(s): E66.2 - MORBID (SEVERE) OBESITY WITH ALVEOLAR HYPOVENTILATION Status : Chronic (7) Pulmonary embolism Code(s): I26.99 - OTHER PULMONARY EMBOLISM WITHOUT ACUTE COR PULMONALE Status : Suspected Comment: continue heparin drip per DVT/PE protocol - Plan cont current plan of care, koch catheter, continue antibiotics, 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 * . - Discharge Day Encounter end time: 10:35 Review of Systems - Review of Systems Other: Unable to perform ROS as pt is Non verbal. - Medications/Allergies Allergies/Adverse Reactions: Allergies Allergy/AdvReac Type Severity Reaction Status Date / Time No Known Drug Allergies Allergy Unverified 02/26/18 01:50 Medications: Current Medications Acetaminophen (Tylenol) 1,000 mg PER TUBE Q6H PRN PRN Reason: Headache/Fever or Mild Pain Lipase/Protease/Amylase (Deonna Anderson [id number]) 1 cap FS .PER PROTOCOL PRN PRN Reason: TUBE OCCLUSION PROTOCOL Aspirin (Aspirin) 325 mg PER TUBE DAILY [facility] Last Admin: 03/08/18 10:11 Dose: 325 mg Clonidine (Catapres) 0.1 mg PO Q4H PRN PRN Reason: Systolic BP > 180 Enoxaparin Sodium (Lovenox) 40 mg SC 0900 [facility] Last Admin: 03/08/18 10:12 Dose: 40 mg Famotidine (Pepcid) 20 mg PER TUBE Q12HR [facility] Last Admin: 03/08/18 10:11 Dose: 20 mg Furosemide (Lasix) 40 mg SLOW IVP 0600,1400 [facility] Last Admin: 03/08/18 06:03 Dose: 40 mg Hydralazine HCl (Apresoline) 10 mg SLOW IVP Q4H PRN PRN Reason: Systolic BP > 180 Potassium Chloride 40 meq/ (Sodium Chloride) 270 mls @ 135 mls/hr IVPB ASDIR PRN PRN Reason: FOR SERUM K+ 2.5 - 3.5 Last Admin: 02/28/18 06:18 Dose: 270 mls Potassium Chloride 40 meq/ (Device) 100 mls @ 50 mls/hr IVPB ASDIR PRN PRN Reason: FOR SERUM K+ 2.5 - 3.5 Magnesium Sulfate 1 gm/ Sodium (Chloride) 102 mls @ 102 mls/hr IV PRN PRN PRN Reason: MAG LEVEL 1.4 - 2.0 Magnesium Sulfate 2 gm/ Device 100 mls @ 100 mls/hr IVPB ASDIR PRN PRN Reason: MAGNESIUM < 1.4 Potassium Phosphate 9 mmol/ (Sodium Chloride) 103 mls @ 25.75 mls/hr IVPB ASDIR PRN PRN Reason: Phosphate 1.0-1.8 Potassium Phosphate 12 mmol/ (Sodium Chloride) 254 mls @ 63.5 mls/hr IV ASDIR PRN PRN Reason: Serum phosphate 0.5-0.9 Potassium Phosphate 15 mmol/ (Sodium Chloride) 255 mls @ 63.75 mls/hr IV ASDIR PRN PRN Reason: Serum Phos < 0.5 Amiodarone HCl 450 mg/Miscellaneous Medication 1 each/ Dextrose/Water 259 mls @ 0 mls/hr IVPB INF HEIKE; As Directed PRN Reason: Protocol Last Admin: 03/08/18 04:56 Dose: 259 mls Magnesium Oxide (Magnesium Oxide) 400 mg PO BIDPRN PRN PRN Reason: FOR SERUM MAG 1.4 - 2.0 Magnesium Oxide (Magnesium Oxide) 800 mg PO PRN PRN PRN Reason: FOR SERUM MAG < 1.4 Miscellaneous Medication (Phos-Nak) 1 pkt PO TIDPRN PRN PRN Reason: FOR PHOS LEVEL 1.0 - 1.8 Miscellaneous Medication (Phos-Nak) 2 pkt PO TIDPRN PRN PRN Reason: FOR PHOS LEVEL 0.5 - 1.0 Ondansetron HCl (Zofran Odt) 4 mg PO Q6H PRN PRN Reason: Nausea/Vomiting Ondansetron HCl (Zofran) 4 mg IVP Q6H PRN PRN Reason: Nausea/Vomiting Potassium Chloride (K-Dur) 40 meq PO ASDIR PRN PRN Reason: FOR SERUM K+ 2.5 - 3.5 Last Admin: 03/04/18 06:43 Dose: 40 meq Potassium Chloride (Klor-Con) 40 meq PER TUBE ASDIR PRN PRN Reason: FOR SERUM K+ 2.5-3.5 Last Admin: 03/08/18 06:14 Dose: 40 meq Potassium Chloride (K-Dur) 40 meq PO ONE [facility] Stop: 03/08/18 14:00 Propofol (Diprivan) 1,000 mg IV INF PRN; Protocol PRN Reason: TO ACHIEVE GOAL RASS Stop: 03/28/18 04:00 Last Admin: 03/05/18 03:06 Dose: 1,000 mg Propofol (Diprivan Bolus) 20 mg IV Q5MIN PRN PRN Reason: BREAKTHROUGH AGITATION Stop: 03/28/18 04:00 Sodium Bicarbonate (Bicarbonate, Sodium) 650 mg PER TUBE .PER PROTOCOL PRN PRN Reason: ENTERAL TUBE OCCLUSION Sodium Chloride (Flush - Normal Saline) 10 ml IVF Q12HR [facility] Last Admin: 03/08/18 10:12 Dose: 10 ml Sodium Chloride (Flush - Normal Saline) 10 ml IVF PRN PRN PRN Reason: Saline Flush
--- NOTE | 2018-03-08 15:24 | CON ---
DATE OF CONSULTATION: 03/08/2018 REASON FOR CONSULTATION: Thrombocytopenia. HISTORY OF PRESENT ILLNESS: Ms. Sauceda is a 62-year-old female, who was admitted with several diagno ses including morbid obesity, pulmonary embolism, Pickwickian syndrome and acute on chronic diastolic congestive heart failure. She now has had respiratory failure for several days and that my understa nding as the plan is tracheostomy in the next 24 hours. She is otherwise stable on the ventilator an d is able to converse by pointing at pictures, although she cannot talk and she is very weak. We are consulted because the patient has become increasingly thrombocytopenic on the hospitalization. She denies any bleeding or blood loss. She does have some ecchymoses, but otherwise has had a stable hem oglobin without any evidence of bleeding. On admission, her platelets were 194, several days later t hey dropped to 81 and today are stable at 68,000. PAST MEDICAL HISTORY: 1. Morbid obesity. 2. Pickwickian syndrome. 3. Congestive heart failure. 4. Chronic hypoxic failure, on home oxygen. 5. Obstructive sleep apnea. 6. Chronic renal failure. CURRENT MEDICATIONS: 1. Amiodarone drip. 2. Tylenol p.r.n. 3. Creon. 4. Aspirin 325 mg p.o. daily. 5. Clonidine 0.1 mg p.o. q.4 hours p.r.n. 6. Lovenox 40 mg subcutaneously daily. 7. Pepcid 20 mg per tube q.12 hours. 8. Lasix 40 mg IV b.i.d. 9. Hydralazine p.r.n. 10. Magnesium oxide 400 mg p.o. b.i.d. 11. Magnesium sulfate intravenously. 12. Zofran 4 mg p.o. q.6 hours p.r.n. 13. K-Dur 40 mEq p.o. daily. 14. Propofol drip, although I think this has been turned down. 15. Bicarbonate. ALLERGIES: No known drug allergies. SOCIAL HISTORY: She has family around and are quite supportive. She has a history of smoking, but n ot currently. FAMILY HISTORY: Noncontributory. REVIEW OF SYSTEMS: Otherwise, 10-point review of systems is unobtainable since she is on the ventila tor. PHYSICAL EXAMINATION: VITAL SIGNS: Pulse 120s to 130s, blood pressure 84 to 147 over 50s to 70s, O2 sat 92% on the ventila tor. GENERAL: The patient is morbidly obese, in no acute distress on the ventilator. HEENT: Extraocular muscles appear to be intact. There are no scleral hemorrhages. NECK: Supple without lymphadenopathy. CARDIOVASCULAR: Tachy, but regular rhythm currently. She has had some nonsustained ventricular tach ycardia, which is the reason for the amiodarone drip. LUNGS: Clear to auscultation anteriorly. ABDOMEN: Morbid obesity. No ecchymoses or petechia. EXTREMITIES: Again, morbid obesity with some ecchymoses, but no petechia. LABORATORY DATA: White blood cell count 3.7, hemoglobin 11.9, platelets 68,000. Sodium 137, potassiu m 3.0, chloride 95, CO2 of 37, BUN 18, creatinine 0.7, and calcium 9.4. ASSESSMENT: Ms. Sauceda is a 62-year-old female with multiple medical problems includin. Acute on chronic respiratory failure. 2. Congestive heart failure. 3. Nonsustained ventricular tachycardia. 4. Morbid obesity. 5. Pickwickian syndrome. 6. Chronic renal failure. PLAN: 1. I think the thrombocytopenia is multifactorial and is likely to be somewhat consumptive in nature given that she has been on the ventilator for several days. It also could be contributed by multipl e medications including Pepcid and amiodarone. Ideally, these would be stopped, but I think they are necessary at this time and I would recommend just following the platelet count. If the platelets co ntinue to drop and get to be less than 40,000, I would recommend changing these medications if possib le. 2. I would recommend a daily CBC while she is on the above medications. 3. If platelets get less than 40,000, I would recommend stopping the Lovenox and/or any other blood thinners. 4. We will continue to follow preferably with you.
[2018-03-08] MEDS: Amiodarone 200 MG TAB PO SCH (20:56)
[2018-03-09] MEDS: Furosemide 40 MG/4 ML VIAL SLOW IVP SCH ×2 (05:11→14:54)
[2018-03-09 06:15] LABS: Anion Gap 11 mmol/L (10-20); BUN (Urea Nitrogen) 24 mg/dL (9.8-20.1); Calc. Creatinine Clearance 183 mL/min (70-130); Calcium 9.4 mg/dL (7.8-10.44); Carbon Dioxide 36 mmol/L (23-31); Chloride 95 mmol/L (98-107); Estimated GFR-MDRD 54; Glucose 102 mg/dL (80-115); Potassium 3.3 mmol/L (3.5-5.1); Sodium 139 mmol/L (136-145)
[2018-03-09 06:24] LABS: Band 10 % (5-11); Eosinophils 1 % (0-10); Lymphocytes 17 % (21-51); MDiff Complete? YES; Mean Corpuscular HGB CONC 29.2 g/dL (32.0-36.0); Mean Corpuscular Hemoglobin 23.7 pg (27.0-31.0); Mean Corpuscular Volume 81.1 fl (81.0-99.0); Mean Platelet Volume 5.5 fL (7.4-10.4); Monocytes 15 % (0-10); Neutrophil 57 % (42-75); PLT Morphology Comment Appears Decreased; Platelet Count 81 thou/uL (130-400); RBC Distribution Width 19.6 % (11.5-14.5); Red Blood Cell (RBC) Count 4.64 mill/uL (4.20-5.40); White Blood Cell (WBC) Count 4.1 thou/uL (4.8-10.8)
[2018-03-09 07:22] LABS: Actual Bicarbonate (HCO3a) 37.9 mEq/L (22-26); Base Excess (BEa) 11.9 mEq/L (0 (+/-) 2.5); CO2 Tension 57.1 mmHg (35.0-45.0); O2 Tension (PaO2) 80.9 mmHg (80.0-100.0); pH, Arterial 7.44 (7.35-7.45)
[2018-03-09 07:23] LABS: ALV-art Gradient 130.925 (0-20); Calcium, Ionized 1.2 mmol/L (1.12-1.30); Hemoglobin (Hb) 10.9 g/dL (12.0-16.0); Puncture Site LR
--- NOTE | 2018-03-09 08:36 | PRG ---
DATE OF SERVICE: 03/09/2018 The patient is awake, alert, is able to nod and shake her head. PHYSICAL EXAMINATION: VITAL SIGNS: Temperature 98.6, pulse 85, blood pressure 133/57, 24 hour intake 1224, output 1180, we ight last measured 450 pounds. HEENT: Unremarkable. NECK: No adenopathy or JVD. LUNGS: Fairly clear anteriorly. CARDIOVASCULAR: S1 and S2 regular. ABDOMEN: Obese, soft. EXTREMITIES: Less edema. LABORATORY DATA: Sodium 139, potassium 3.3, chloride 95, CO2 36, BUN 24, creatinine 1.0, glucose 102 . ABG; pH 7.44, pCO2 57, pO2 80 on SIMV rate 15, tidal volume 390, PEEP 5, pressure support 25, FiO2 40%. White blood cell count 4.1, hematocrit 37.6, platelet count of 281. ASSESSMENT: 1. Morbid obesity. 2. Obesity hypoventilation syndrome. 3. Acute on chronic respiratory failure. 4. Improving thrombocytopenia. 5. Question of pulmonary embolus based on elevated PA pressures. I think it is more likely due to s leep apnea than anything else. PLAN: 1. Continue Lovenox. 2. General Surgery has been consulted for tracheostomy and perhaps feeding tube. 3. Atrial fibrillation management per Cardiology.
[2018-03-09] MEDS ORDERED: Vecuronium 10 MG VIAL IV PRN (09:44)
[2018-03-09] MEDS ORDERED: Fentanyl 100 MCG/2 ML VIAL SLOW IVP PRN (09:44)
[2018-03-09] MEDS ORDERED: Midazolam HCl 2 mg/2 ml Vial IVP PRN (09:45)
[2018-03-09] MEDS: Amiodarone 200 MG TAB PO SCH ×2 (10:20→22:23)
[2018-03-09] MEDS: Aspirin 325 MG TAB PER TUBE SCH (10:20)
[2018-03-09] MEDS: Enoxaparin Sodium 40 MG/0.4 ML SYRINGE SC SCH (10:20)
[2018-03-09] MEDS: Famotidine 20 MG TAB PER TUBE SCH (10:40)
[2018-03-09] MEDS ORDERED: Pantoprazole 40 MG GRANULES PACKET PER TUBE SCH (11:00)
[2018-03-09] MEDS ORDERED: Fentanyl 100 MCG/2 ML VIAL SLOW IVP SCH (11:45)
[2018-03-09] MEDS ORDERED: Vecuronium 10 MG VIAL IV SCH (11:45)
[2018-03-09] MEDS ORDERED: Midazolam HCl 2 mg/2 ml Vial IVP SCH (11:45)
[2018-03-09] MEDS ORDERED: Lidocaine 1% (PF) 30 ML VIAL ONE (12:16)
[2018-03-09] MEDS ORDERED: Lidocaine 1% w/Epinephrine 1:100K 20 ML VIAL ONE (12:17)
[2018-03-09] MEDS ORDERED: Fentanyl 100 MCG/2 ML VIAL ONE ×4 (12:28→13:22)
[2018-03-09] MEDS ORDERED: Midazolam HCl 2 mg/2 ml Vial ONE ×3 (12:28→13:10)
[2018-03-09] MEDS ORDERED: CEFAZOLIN/Water 2 GM/20 ML SYRINGE SLOW IVP SCH (13:15)
--- NOTE | 2018-03-09 13:32 | OP ---
DATE OF OPERATION: 03/09/2018 PREOPERATIVE DIAGNOSES: 1. Acute pulmonary failure. 2. Morbid obesity. 3. Acute on chronic congestive heart failure. POSTOPERATIVE DIAGNOSES: 1. Acute pulmonary failure. 2. Morbid obesity. 3. Acute on chronic congestive heart failure. PROCEDURES PERFORMED: Percutaneous tracheostomy tube placement. SURGEON: Fuad Barclay D.O. INDICATIONS FOR PROCEDURE: This is a 62-year-old morbidly obese woman with a BMI 77, who is in pulmo nary failure. I was asked to place a percutaneous tracheostomy tube to facilitate ventilatory wean o n this patient, who has been on mechanical ventilator support for almost 2 weeks now. DESCRIPTION OF PROCEDURE: Informed consent obtained from the patient, who was placed in supine posit ion. The patient was given aliquots of midazolam and fentanyl to achieve deep sedation. This was fo llowed by 10 mg of vecuronium. The patient was placed on full mechanical ventilator support, FiO2 se t at 100%. Fiberoptic bronchoscope was introduced through the previous endotracheal tube to visualiz e the mark. The scope was then withdrawn noting the tip of the endotracheal tube, which resides ap proximately 2 cm above the mark. The endotracheal tube was withdrawn to 4 cm above the mark. Fo llowing this, the anterior neck was then sterilely prepped and draped in usual fashion. The skin 2 f ingerbreadths above the suprasternal notch was anesthetized with 1% lidocaine with epinephrine. A 1 cm vertical incision was made using 15 scalpel. An introducer needle was inserted through this incis ion and advanced through the anterior tracheal wall. Through this needle, a guidewire was passed int o the distal tracheal lumen. The placement of the guidewire is confirmed by bronchoscopy. Needle wa s withdrawn over the guidewire. Anterior tracheal wall was then sterilely dilated over the guidewire . Finally, size #8 extra-long tracheostomy tube was advanced over the guidewire using dilator a styl et. The dilator and a plastic stylet as well as the guidewire were withdrawn as a unit leaving the t racheostomy tube in place. Inner cannula was then inserted. The patient is connected mechanical jl tilator support via the newly placed tracheostomy tube. The tracheostomy tube is secured to anterior neck using old silk suture at 2 points. Sterile dressings were applied. Bronchoscope was withdrawn with the previous endotracheal tube as a unit, visualizing this tracheostomy site from above with go od hemostasis. Once the endotracheal tube was removed, the bronchoscope was reintroduced through the newly placed tracheostomy tube and advanced to visualize the mark. The scope was advanced first t o the left main stem and then into the right main stem bronchi. No active bleeding is noted as the b ronchoscope was withdrawn, visualizing and intact tracheobronchial mucosa. The patient tolerated thi s operation without any apparent complication and remains hemodynamically stable following completion of the procedure.
--- NOTE | 2018-03-09 14:12 | PDOC.CTH ---
Cardiology Progress Note - Subjective No new issues. She remains awake and following commands. - Objective Vital Signs Temp Pulse Resp BP 03/09/18 11:25 88 195/88 H 03/09/18 10:00 18 03/09/18 08:27 82 109/60 03/09/18 08:00 98.8 F 17 03/09/18 06:00 18 03/09/18 04:00 21 H 03/09/18 03:00 98.6 F 03/09/18 02:54 82 Admit Weight 600 lb Weight 450 lb 6.47 oz 03/08/18 03/09/18 03/10/18 06:59 06:59 06:59 Intake Total 1038.4 1224 Output Total 2180 1180 235 Balance -1141.6 44 -235 - Physical Examination General/Neuro: NAD Neck: no JVD present Lungs: CTA, unlabored respirations Heart: RRR Abdomen: NT/ND Extremities: + edema B (2+) - Telemetry Telemetry Rhythm: NSR, PAC's - Labs Result Diagrams: 03/09/18 05:55 03/09/18 05:55 Troponin/CKMB CK-MB (CK-2) 2.9 ng/mL (0-6.6) 02/26/18 01:05 Troponin I 0.180 ng/mL (< 0.028) H 02/26/18 06:57 - Assessment/Plan 1. Acute hypoxic hypercapnic respiratory insufficiency 2. Acute on chronic RV dysfunction. 3. Acute on chronic diastolic heart failure 4. Morbid obesity, BMI 103 5. Pickwickian syndrome 6. Hypokalemia 7. Afib RVR, rate controlled, now. PLAN: - Continue IV lasix. - Continue heparin gtt. - Continue amiodarone drip, likely afib due to hypokalemia. - Replace K aggressively. One extra dose given today. - Agree with Trach and PEG.
[2018-03-09] MEDS ORDERED: Potassium Chloride 40 MEQ in Premix Bag 1 BAG IVPB SCH (14:15)
--- NOTE | 2018-03-09 14:35 | OP ---
DATE OF OPERATION: 03/09/2018 PREOPERATIVE DIAGNOSES: 1. Acute on chronic congestive heart failure. 2. Acute respiratory failure. POSTOPERATIVE DIAGNOSES: 1. Acute on chronic congestive heart failure. 2. Acute respiratory failure. PROCEDURES PERFORMED: Percutaneous endoscopic gastrostomy tube placement. SURGEON: Fuad Barclay D.O. ANESTHESIA: Deep sedation and local. INDICATIONS FOR PROCEDURE: A 62-year-old morbidly obese woman, BMI 77, admitted with acute on chroni c congestive heart failure as well as acute respiratory failure. The patient has been on mechanical ventilator support now for almost 2 weeks. I was asked to place the percutaneous endoscopic gastrostomy tube for potential prolonged enteral nut ritional supplementation. DESCRIPTION OF PROCEDURE: Informed consent obtained from the patient. She was placed in the supine position. Following adequate sedation, the left upper abdominal region was widely sterilely prepped and draped in the usual fashion. A fibrotic endoscope was introduced per oral after a mouthguard was put in place. The tube was advanced intubating the esophagus. With gentle insufflation, the gastri c lumen was entered. The scope was advanced into the proximal duodenum finding no evidence of ulcers or any lesions. The scope was then withdrawn into the gastric lumen with retroflexion. I did not s ee any evidence of hiatal hernia. No gastritis present. The left upper quadrant abdominal wall was transilluminated and area chosen for placement of the PEG tube. The skin is anesthetized with 1% lid ocaine. A stab incision is made using an 11 scalpel. Introducer needle was inserted through this in cision and advanced into the gastric lumen, visualized by endoscopy. A guidewire was then advanced t hrough this needle and placed in the gastric lumen, captured with an endosnare. Guidewire was pulled out with the endoscope per oral. The needle and the introducer catheter sheath were removed as an u nit. The distal end of the guidewire was then connected to a 20-Kiswahili gastrostomy tube. The other end of the guidewire was pulled out through the skin incision leaving the mushroom end of the gastros israel tube visualized within the gastric lumen as this abuts the gastric wall. The gastrostomy tube w as fashioned to length and bolstered to the skin at 9 cm. Sterile dressing was applied. The endosco pe was then used to visualize the final resting place of the gastrostomy tube within the gastric lume n. The stomach was desufflated. The endoscope was withdrawn, visualizing intact esophageal mucosa. The patient tolerated the operation without any apparent complication and remains hemodynamically sta ble following completion of the procedure.
--- NOTE | 2018-03-09 16:32 | PDOC.PN ---
- Subjective Encounter Start Date: 03/09/18 Encounter Start Time: 10:00 Chriss is seen today, Alert and oriented. She is aslked to sign the Consent for her Tracheostomy and Peg Tube, pt was able to grasp the pen and sign. - Objective Resuscitation Status: Resuscitation Status FULL:Full Resuscitation MAR Reviewed: Yes Vital Signs & Weight: Vital Signs (12 hours) Temp Pulse Resp BP 03/09/18 14:00 15 03/09/18 12:00 98.8 F 20 03/09/18 11:25 88 195/88 H 03/09/18 10:00 18 03/09/18 08:27 82 109/60 03/09/18 08:00 98.8 F 17 03/09/18 06:00 18 Weight Admit Weight 600 lb Weight 450 lb 6.47 oz Most Recent Monitor Data Heart Rate from ECG 95 NIBP 156/78 NIBP BP-Mean 89 Respiration from ECG 19 SpO2 94 I&O: 03/08/18 03/09/18 03/10/18 06:59 06:59 06:59 Intake Total 1038.4 1224 10 Output Total 2180 1180 410 Balance -1141.6 44 -400 Result Diagrams: 03/09/18 05:55 03/09/18 05:55 Radiology Reviewed by me: Yes Phys Exam - Physical Examination HEENT: PERRLA, moist MMs Neck: no nodes, no JVD Respiratory: no wheezing, no rales Cardiovascular: no significant murmur, irregular Gastrointestinal: soft, non-tender Musculoskeletal: pulses present, edema present Neurological: non-focal, normal sensation Dx/Plan (1) Acute idiopathic thrombocytopenic purpura Code(s): D69.3 - IMMUNE THROMBOCYTOPENIC PURPURA Status: Acute Comment: Yusra has Drop in Plaelets >50% since admisison,remained stbale Now. HIT was negative.Stbale at 72 now. COnsulted Oncology for Thrombocytopenia.Improving now to 80, Oncology felt it could be from Famotidine and Amiodarone, if dropping then will need to change Amiodarone, Will change Famotdine to protonix now. (2) Acute and chronic respiratory failure Code(s): J96.20 - ACUTE AND CHR RESP FAILURE, UNSP W HYPOXIA OR HYPERCAPNIA Status: Acute Qualifiers: Respiratory failure complication: hypercapnia Qualified Code(s): J96.22 - Acute and chronic respiratory failure with hypercapnia Comment: Planned for Tracheostomy today. Will continue on Vent per pulmonary.. (3) Acute on chronic diastolic (congestive) heart failure Code(s): I50.33 - ACUTE ON CHRONIC DIASTOLIC (CONGESTIVE) HEART FAILURE Status : Acute Comment: continue IV lasix (4) Hypokalemia Code(s): E87.6 - HYPOKALEMIA Status: Acute Comment: continue electrolyte replacement protocol (5) Morbid obesity with BMI of 70 and over, adult Code(s): E66.01 - MORBID (SEVERE) OBESITY DUE TO EXCESS CALORIES; Z68.45 - BODY MASS INDEX (BMI) 70 OR GREATER, ADULT Status: Chronic (6) Pickwickian syndrome Code(s): E66.2 - MORBID (SEVERE) OBESITY WITH ALVEOLAR HYPOVENTILATION Status : Chronic (7) Pulmonary embolism Code(s): I26.99 - OTHER PULMONARY EMBOLISM WITHOUT ACUTE COR PULMONALE Status : Suspected Comment: continue heparin drip per DVT/PE protocol - Plan cont current plan of care, continue antibiotics, respiratory therapy, DVT proph w/lovenox * . - Discharge Day Encounter end time: 10:35 Review of Systems - Review of Systems Cardiovascular: negative: chest pain, palpitations, orthopnea, paroxysmal nocturnal dyspnea, edema, light headedness, other Gastrointestinal: negative: Nausea, Vomiting, Abdominal Pain, Diarrhea, Constipation, Melena, Hematochezia, Other Other: Pt is non verbal from intubation, - Medications/Allergies Allergies/Adverse Reactions: Allergies Allergy/AdvReac Type Severity Reaction Status Date / Time No Known Drug Allergies Allergy Verified 03/08/18 14:16 Medications: Current Medications Acetaminophen (Tylenol Elixir) 1,000 mg PER TUBE Q6H PRN PRN Reason: Headache/Fever or Pain Albuterol/Ipratropium (Duoneb) 3 ml NEB [id number] [facility] Last Admin: 03/09/18 13:31 Dose: 3 ml Amiodarone HCl (Cordarone) 400 mg PO BID [facility] Last Admin: 03/09/18 10:20 Dose: 400 mg Lipase/Protease/[place]ylase ([place] [id number]) 1 cap FS .PER PROTOCOL PRN PRN Reason: TUBE OCCLUSION PROTOCOL Aspirin (Aspirin) 325 mg PER TUBE DAILY [facility] Last Admin: 03/09/18 10:20 Dose: 325 mg Cefazolin Sodium (Ancef) 2 gm SLOW IVP [facility] Stop: 03/09/18 18:00 Clonidine (Catapres) 0.1 mg PO Q4H PRN PRN Reason: Systolic BP > 180 Enoxaparin Sodium (Lovenox) 40 mg SC 0900 [facility] Last Admin: 03/09/18 10:20 Dose: 40 mg Furosemide (Lasix) 40 mg SLOW IVP 0600,1400 [facility] Last Admin: 03/09/18 14:54 Dose: 40 mg Hydralazine HCl (Apresoline) 10 mg SLOW IVP Q4H PRN PRN Reason: Systolic BP > 180 Potassium Chloride 40 meq/ (Sodium Chloride) 270 mls @ 135 mls/hr IVPB ASDIR PRN PRN Reason: FOR SERUM K+ 2.5 - 3.5 Last Admin: 02/28/18 06:18 Dose: 270 mls Potassium Chloride 40 meq/ (Device) 100 mls @ 50 mls/hr IVPB ASDIR PRN PRN Reason: FOR SERUM K+ 2.5 - 3.5 Magnesium Sulfate 1 gm/ Sodium (Chloride) 102 mls @ 102 mls/hr IV PRN PRN PRN Reason: MAG LEVEL 1.4 - 2.0 Magnesium Sulfate 2 gm/ Device 100 mls @ 100 mls/hr IVPB ASDIR PRN PRN Reason: MAGNESIUM < 1.4 Potassium Phosphate 9 mmol/ (Sodium Chloride) 103 mls @ 25.75 mls/hr IVPB ASDIR PRN PRN Reason: Phosphate 1.0-1.8 Potassium Phosphate 12 mmol/ (Sodium Chloride) 254 mls @ 63.5 mls/hr IV ASDIR PRN PRN Reason: Serum phosphate 0.5-0.9 Potassium Phosphate 15 mmol/ (Sodium Chloride) 255 mls @ 63.75 mls/hr IV ASDIR PRN PRN Reason: Serum Phos < 0.5 Potassium Chloride 20 meq/ (Device) 100 mls @ 50 mls/hr IVPB Q2H [facility] Stop: 03/09/18 18:59 Magnesium Oxide (Magnesium Oxide) 400 mg PO BIDPRN PRN PRN Reason: FOR SERUM MAG 1.4 - 2.0 Magnesium Oxide (Magnesium Oxide) 800 mg PO PRN PRN PRN Reason: FOR SERUM MAG < 1.4 Miscellaneous Medication (Phos-Nak) 1 pkt PO TIDPRN PRN PRN Reason: FOR PHOS LEVEL 1.0 - 1.8 Miscellaneous Medication (Phos-Nak) 2 pkt PO TIDPRN PRN PRN Reason: FOR PHOS LEVEL 0.5 - 1.0 Morphine Sulfate (Morphine) 4 mg SLOW IVP Q30MIN PRN PRN Reason: Pain Ondansetron HCl (Zofran Odt) 4 mg PO Q6H PRN PRN Reason: Nausea/Vomiting Ondansetron HCl (Zofran) 4 mg IVP Q6H PRN PRN Reason: Nausea/Vomiting Pantoprazole Sodium (Protonix) 40 mg PER TUBE DAILY [facility] Potassium Chloride (K-Dur) 40 meq PO ASDIR PRN PRN Reason: FOR SERUM K+ 2.5 - 3.5 Last Admin: 03/04/18 06:43 Dose: 40 meq Potassium Chloride (Klor-Con) 40 meq PER TUBE ASDIR PRN PRN Reason: FOR SERUM K+ 2.5-3.5 Last Admin: 03/09/18 06:22 Dose: 40 meq Propofol (Diprivan) 1,000 mg IV INF PRN; Protocol PRN Reason: TO ACHIEVE GOAL RASS Stop: 03/28/18 04:00 Last Admin: 03/05/18 03:06 Dose: 1,000 mg Propofol (Diprivan Bolus) 20 mg IV Q5MIN PRN PRN Reason: BREAKTHROUGH AGITATION Stop: 03/28/18 04:00 Sodium Bicarbonate (Bicarbonate, Sodium) 650 mg PER TUBE .PER PROTOCOL PRN PRN Reason: ENTERAL TUBE OCCLUSION Sodium Chloride (Flush - Normal Saline) 10 ml IVF Q12HR [facility] Last Admin: 03/09/18 09:00 Dose: 10 ml Sodium Chloride (Flush - Normal Saline) 10 ml IVF PRN PRN PRN Reason: Saline Flush
[2018-03-09] MEDS: Potassium Chloride 20 MEQ in Premix Bag 1 BAG IVPB SCH ×2 (17:05→21:38)
[2018-03-09] MEDS: Morphine 4 MG/ML VIAL SLOW IVP PRN ×2 (17:06→22:52)
[2018-03-10] MEDS: hydrALAZINE 20 MG/ML VIAL SLOW IVP PRN ×3 (03:53→23:14)
[2018-03-10] MEDS: Morphine 4 MG/ML VIAL SLOW IVP PRN (04:02)
[2018-03-10 04:30] LABS: Anion Gap 13 mmol/L (10-20); BUN (Urea Nitrogen) 25 mg/dL (9.8-20.1); Calc. Creatinine Clearance 183 mL/min (70-130); Calcium 9.5 mg/dL (7.8-10.44); Carbon Dioxide 36 mmol/L (23-31); Chloride 95 mmol/L (98-107); Estimated GFR-MDRD 54; Glucose 88 mg/dL (80-115); Potassium 4.1 mmol/L (3.5-5.1); Sodium 140 mmol/L (136-145)
[2018-03-10 04:54] LABS: Hemoglobin 11.7 g/dL (12.0-16.0); Mean Corpuscular HGB CONC 30.2 g/dL (32.0-36.0); Mean Corpuscular Hemoglobin 24.7 pg (27.0-31.0); Mean Corpuscular Volume 81.6 fl (81.0-99.0); Mean Platelet Volume 5.8 fL (7.4-10.4); Platelet Count 87 thou/uL (130-400); RBC Distribution Width 19.4 % (11.5-14.5); Red Blood Cell (RBC) Count 4.76 mill/uL (4.20-5.40); White Blood Cell (WBC) Count 4.8 thou/uL (4.8-10.8)
[2018-03-10 05:15] LABS: Band 4 % (5-11); Eosinophils 2 % (0-10); Lymphocytes 9 % (21-51); MDiff Complete? YES; Monocytes 10 % (0-10); Neutrophil 75 % (42-75); PLT Morphology Comment Appears Decreased
[2018-03-10] MEDS: Furosemide 40 MG/4 ML VIAL SLOW IVP SCH ×2 (05:44→16:31)
--- NOTE | 2018-03-10 07:42 | PDOC.PULCC ---
CCU Progress Note: Subj/Obj - Subjective Date: 03/10/18 Time: 07:40 Narrative: Awake. No pain - Objective Allergies/Adverse Reactions: Allergies Allergy/AdvReac Type Severity Reaction Status Date / Time No Known Drug Allergies Allergy Verified 03/08/18 14:16 MAR Reviewed: Yes Vital Signs and I&O: Vital Signs Temp 98.3 F 03/10/18 04:00 Pulse 96 03/10/18 07:37 Resp 18 03/10/18 06:00 BP 168/85 H 03/10/18 07:25 Pulse Ox 95 03/10/18 00:15 Intake & Output 03/09/18 03/10/18 03/10/18 18:59 06:59 18:59 Intake Total 10 910 Output Total 860 465 Balance -850 445 Weight 450 lb 6.47 oz Intake: Intake, IV Amount 10 910 CEFAZOLIN/Water 2 G/20 ML 20 2 gm SLOW IVP [facility] Rx#:[id number] Potassium Chloride 20 meq 330 In Premix Bag 1 bag @ 50 mls/hr IVPB Q2H [facility] Rx#: [id number] Sodium Chloride 0.9% 10 10 560 ml IVF PRN PRN Rx#: [id number] Output: Gastric Drainage 50 Output, Tolbert 810 465 Other: Voiding Method Indwelling Catheter Indwelling Catheter # Bowel Movements 0 0 Vent Setting: SIMV 15, PS 17 Spontaneous Breathing Test: done (in progress) CCU Progress Note: Exam - Physical Exam Constitutional: NAD HEENT: PERRLA Neck: no JVD Deviation from normal: episodic afib Focused Respiratory Location: decreased breath sounds: Right, Left Gastrointestinal: soft Deviation from normal: peg site ok Musculoskeletal: edema present Psychiatric: normal affect CCU Progress Note: Data - Labs Result Diagrams: 03/10/18 03:55 03/10/18 03:55 - ABG Interpretation Attestation: I reviewed and interpreted this ABG. ABG Results: 7 Interpretation: abnormal CCU Progress Note: A/P - Problems (1) Acute and chronic respiratory failure Current Visit: Yes Status: Acute Code(s): J96.20 - ACUTE AND CHR RESP FAILURE, UNSP W HYPOXIA OR HYPERCAPNIA Qualifiers: Respiratory failure complication: hypercapnia Qualified Code(s): J96.22 - Acute and chronic respiratory failure with hypercapnia (2) Acute on chronic diastolic (congestive) heart failure Current Visit: Yes Status: Acute Code(s): I50.33 - ACUTE ON CHRONIC DIASTOLIC (CONGESTIVE) HEART FAILURE (3) Morbid obesity with BMI of 70 and over, adult Current Visit: Yes Status: Chronic Code(s): E66.01 - MORBID (SEVERE) OBESITY DUE TO EXCESS CALORIES; Z68.45 - BODY MASS INDEX (BMI) 70 OR GREATER, ADULT (4) Pickwickian syndrome Current Visit: Yes Status: Chronic Code(s): E66.2 - MORBID (SEVERE) OBESITY WITH ALVEOLAR HYPOVENTILATION - Time Spent with Patient Time (minutes): 30 - Plan Plan: Wean to PS ventilation Up in chair with assist D/w Family and casey saw operator yesterday re: placement
[2018-03-10 08:00] LABS: CO2 Tension 61.5 mmHg (35.0-45.0); pH, Arterial 7.42 (7.35-7.45)
[2018-03-10 08:01] LABS: ALV-art Gradient 135.125 (0-20); Actual Bicarbonate (HCO3a) 38.9 mEq/L (22-26); Base Excess (BEa) 12.3 mEq/L (0 (+/-) 2.5); Hematocrit-ABG 41.6 % (36.0-47.0); Hemoglobin (Hb) 11.4 g/dL (12.0-16.0); O2 Tension (PaO2) 71.2 mmHg (80.0-100.0); Puncture Site RRA
[2018-03-10] MEDS: Amiodarone 200 MG TAB PO SCH ×2 (10:22→21:37)
[2018-03-10] MEDS: Aspirin 325 MG TAB PER TUBE SCH (10:22)
[2018-03-10] MEDS: Enoxaparin Sodium 40 MG/0.4 ML SYRINGE SC SCH (10:23)
[2018-03-10] MEDS: Pantoprazole 40 MG GRANULES PACKET PER TUBE SCH (10:24)
--- NOTE | 2018-03-10 14:45 | PDOC.PN ---
- Subjective Encounter Start Date: 03/10/18 Encounter Start Time: 07:30 Subjective: on vent, awake, not in distress - Objective Resuscitation Status: Resuscitation Status FULL:Full Resuscitation MAR Reviewed: Yes Vital Signs & Weight: Vital Signs (12 hours) Temp Pulse Resp BP Pulse Ox 03/10/18 14:00 15 03/10/18 13:51 90 128/57 L 03/10/18 12:00 98.5 F 16 03/10/18 11:48 86 161/79 H 03/10/18 11:45 90 03/10/18 10:00 16 03/10/18 08:00 98.3 F 86 19 94 L 03/10/18 07:37 96 03/10/18 07:25 89 168/85 H 03/10/18 07:00 98.3 F 03/10/18 06:00 18 03/10/18 04:00 98.3 F 18 03/10/18 03:53 86 208/92 H 03/10/18 03:00 20 Weight Admit Weight 600 lb Weight 450 lb 6.47 oz Most Recent Monitor Data Heart Rate from ECG 93 NIBP 131/59 NIBP BP-Mean 76 Respiration from ECG 18 SpO2 95 I&O: 03/09/18 03/10/18 03/11/18 06:59 06:59 06:59 Intake Total 1224 920 60 Output Total 1180 1325 805 Balance 01 -199 -117 Result Diagrams: 03/10/18 03:55 03/10/18 03:55 Phys Exam - Physical Examination HEENT: PERRLA, moist MMs Neck: no JVD trach+ Respiratory: no wheezing, no rales Cardiovascular: RRR, no significant murmur Gastrointestinal: soft, no distention, positive bowel sounds peg+ Musculoskeletal: pulses present, edema present Neurological: non-focal, moves all 4 limbs Psychiatric: A&O x 3 Dx/Plan (1) Acute and chronic respiratory failure Code(s): J96.20 - ACUTE AND CHR RESP FAILURE, UNSP W HYPOXIA OR HYPERCAPNIA Status: Chronic Qualifiers: Respiratory failure complication: hypercapnia Qualified Code(s): J96.22 - Acute and chronic respiratory failure with hypercapnia (2) CAROL (obstructive sleep apnea) Code(s): G47.33 - OBSTRUCTIVE SLEEP APNEA (ADULT) (PEDIATRIC) Status: Chronic (3) Afib Code(s): I48.91 - UNSPECIFIED ATRIAL FIBRILLATION Status: Chronic Qualifiers: Atrial fibrillation type: paroxysmal Qualified Code(s): I48.0 - Paroxysmal atrial fibrillation (4) Acute on chronic diastolic (congestive) heart failure Code(s): I50.33 - ACUTE ON CHRONIC DIASTOLIC (CONGESTIVE) HEART FAILURE Status : Chronic (5) Morbid obesity with BMI of 70 and over, adult Code(s): E66.01 - MORBID (SEVERE) OBESITY DUE TO EXCESS CALORIES; Z68.45 - BODY MASS INDEX (BMI) 70 OR GREATER, ADULT Status: Chronic (6) Pickwickian syndrome Code(s): E66.2 - MORBID (SEVERE) OBESITY WITH ALVEOLAR HYPOVENTILATION Status : Chronic - Plan got both trach and peg yesterday -: weaning per pulm advice -: on oral amio, lasix iv -: platelets are holding up -: will need ltac placement per pulm advice * . Review of Systems - Medications/Allergies Allergies/Adverse Reactions: Allergies Allergy/AdvReac Type Severity Reaction Status Date / Time No Known Drug Allergies Allergy Verified 03/08/18 14:16 Medications: Current Medications Acetaminophen (Tylenol Elixir) 1,000 mg PER TUBE Q6H PRN PRN Reason: Headache/Fever or Pain Albuterol/Ipratropium (Duoneb) 3 ml NEB [id number] [facility] Last Admin: 03/10/18 13:50 Dose: 3 ml Amiodarone HCl (Cordarone) 400 mg PO BID [facility] Last Admin: 03/10/18 10:22 Dose: 400 mg Lipase/Protease/Amylase ([place] [id number]) 1 cap FS .PER PROTOCOL PRN PRN Reason: TUBE OCCLUSION PROTOCOL Aspirin (Aspirin) 325 mg PER TUBE DAILY [facility] Last Admin: 03/10/18 10:22 Dose: 325 mg Clonidine (Catapres) 0.1 mg PO Q4H PRN PRN Reason: Systolic BP > 180 Enoxaparin Sodium (Lovenox) 40 mg SC 0900 [facility] Last Admin: 03/10/18 10:23 Dose: 40 mg Furosemide (Lasix) 40 mg SLOW IVP 0600,1400 [facility] Last Admin: 03/10/18 05:44 Dose: 40 mg Hydralazine HCl (Apresoline) 10 mg SLOW IVP Q4H PRN PRN Reason: Systolic BP > 180 Last Admin: 03/10/18 03:53 Dose: 10 mg Potassium Chloride 40 meq/ (Sodium Chloride) 270 mls @ 135 mls/hr IVPB ASDIR PRN PRN Reason: FOR SERUM K+ 2.5 - 3.5 Last Admin: 02/28/18 06:18 Dose: 270 mls Potassium Chloride 40 meq/ (Device) 100 mls @ 50 mls/hr IVPB ASDIR PRN PRN Reason: FOR SERUM K+ 2.5 - 3.5 Magnesium Sulfate 1 gm/ Sodium (Chloride) 102 mls @ 102 mls/hr IV PRN PRN PRN Reason: MAG LEVEL 1.4 - 2.0 Magnesium Sulfate 2 gm/ Device 100 mls @ 100 mls/hr IVPB ASDIR PRN PRN Reason: MAGNESIUM < 1.4 Potassium Phosphate 9 mmol/ (Sodium Chloride) 103 mls @ 25.75 mls/hr IVPB ASDIR PRN PRN Reason: Phosphate 1.0-1.8 Potassium Phosphate 12 mmol/ (Sodium Chloride) 254 mls @ 63.5 mls/hr IV ASDIR PRN PRN Reason: Serum phosphate 0.5-0.9 Potassium Phosphate 15 mmol/ (Sodium Chloride) 255 mls @ 63.75 mls/hr IV ASDIR PRN PRN Reason: Serum Phos < 0.5 Magnesium Oxide (Magnesium Oxide) 400 mg PO BIDPRN PRN PRN Reason: FOR SERUM MAG 1.4 - 2.0 Magnesium Oxide (Magnesium Oxide) 800 mg PO PRN PRN PRN Reason: FOR SERUM MAG < 1.4 Miscellaneous Medication (Phos-Nak) 1 pkt PO TIDPRN PRN PRN Reason: FOR PHOS LEVEL 1.0 - 1.8 Miscellaneous Medication (Phos-Nak) 2 pkt PO TIDPRN PRN PRN Reason: FOR PHOS LEVEL 0.5 - 1.0 Morphine Sulfate (Morphine) 4 mg SLOW IVP Q30MIN PRN PRN Reason: Pain Last Admin: 03/10/18 04:02 Dose: 4 mg Ondansetron HCl (Zofran Odt) 4 mg PO Q6H PRN PRN Reason: Nausea/Vomiting Ondansetron HCl (Zofran) 4 mg IVP Q6H PRN PRN Reason: Nausea/Vomiting Pantoprazole Sodium (Protonix) 40 mg PER TUBE DAILY [facility] Last Admin: 03/10/18 10:24 Dose: 40 mg Potassium Chloride (K-Dur) 40 meq PO ASDIR PRN PRN Reason: FOR SERUM K+ 2.5 - 3.5 Last Admin: 03/04/18 06:43 Dose: 40 meq Potassium Chloride (Klor-Con) 40 meq PER TUBE ASDIR PRN PRN Reason: FOR SERUM K+ 2.5-3.5 Last Admin: 03/09/18 06:22 Dose: 40 meq Sodium Bicarbonate (Bicarbonate, Sodium) 650 mg PER TUBE .PER PROTOCOL PRN PRN Reason: ENTERAL TUBE OCCLUSION Sodium Chloride (Flush - Normal Saline) 10 ml IVF Q12HR [facility] Last Admin: 03/10/18 10:24 Dose: 10 ml Sodium Chloride (Flush - Normal Saline) 10 ml IVF PRN PRN PRN Reason: Saline Flush
--- NOTE | 2018-03-10 18:07 | PDOC.CTH ---
Cardiology Progress Note - Subjective No new issues. She had a PEG and trach yesterday without issues. - Objective Vital Signs Temp Pulse Resp BP Pulse Ox 03/10/18 15:25 94 149/71 H 03/10/18 14:00 15 03/10/18 13:51 90 128/57 L 03/10/18 12:00 98.5 F 16 03/10/18 11:48 86 161/79 H 03/10/18 11:45 90 03/10/18 10:00 16 03/10/18 08:00 98.3 F 86 19 94 L 03/10/18 07:37 96 03/10/18 07:25 89 168/85 H 03/10/18 07:00 98.3 F Admit Weight 600 lb Weight 450 lb 6.47 oz 03/09/18 03/10/18 03/11/18 06:59 06:59 06:59 Intake Total 1224 920 60 Output Total 1180 1325 837 Balance 20 -294 -109 - Physical Examination General/Neuro: alert & oriented x3, NAD Neck: no JVD present Lungs: CTA, unlabored respirations Heart: RRR Abdomen: NT/ND Extremities: + edema B (2+) - Telemetry Telemetry Rhythm: NSR, PAC's. - Labs Result Diagrams: 03/10/18 03:55 03/10/18 03:55 Troponin/CKMB CK-MB (CK-2) 2.9 ng/mL (0-6.6) 02/26/18 01:05 Troponin I 0.180 ng/mL (< 0.028) H 02/26/18 06:57 - Assessment/Plan 1. Acute hypoxic hypercapnic respiratory insufficiency 2. Acute on chronic RV dysfunction. 3. Acute on chronic diastolic heart failure 4. Morbid obesity, BMI 103 5. Pickwickian syndrome 6. Hypokalemia 7. Afib RVR, rate controlled, now. PLAN: - Switch to PO lasix, creatinine creeping up some. - Continue heparin gtt. - Continue amiodarone drip. Switch to po in next 24 to 48 hrs.
[2018-03-10] MEDS: cloNIDine 0.1 MG TAB PO PRN (18:11)
[2018-03-11 06:22] LABS: #Eosinphils 0.2 thou/uL (0.0-0.7); #Lymphocytes 0.6 thou/uL (1.20-3.40); #Monocytes 0.5 thou/uL (0.11-0.59); #Neutrophils 3.4 thou/uL (1.40-6.50); %Basophils 0.4 % (0.0-1.0); %Eosinophils 4.3 % (0.0-10.0); %Lymphocytes 12.7 % (21.0-51.0); %Monocytes 11.3 % (0.0-10.0); %Neutrophils 71.4 % (42.0-75.0); Hemoglobin 11.4 g/dL (12.0-16.0); Mean Corpuscular HGB CONC 29.1 g/dL (32.0-36.0); Mean Corpuscular Hemoglobin 24.3 pg (27.0-31.0); Mean Corpuscular Volume 83.3 fl (81.0-99.0); Mean Platelet Volume 11.4 fL (7.4-10.4); Platelet Count 102 thou/uL (130-400); RBC Distribution Width 19.8 % (11.5-14.5); Red Blood Cell (RBC) Count 4.68 mill/uL (4.20-5.40); White Blood Cell (WBC) Count 4.7 thou/uL (4.8-10.8)
[2018-03-11 06:42] LABS: Anion Gap 12 mmol/L (10-20); BUN (Urea Nitrogen) 28 mg/dL (9.8-20.1); Calc. Creatinine Clearance 209 mL/min (70-130); Calcium 9.6 mg/dL (7.8-10.44); Carbon Dioxide 37 mmol/L (23-31); Chloride 96 mmol/L (98-107); Estimated GFR-MDRD 63; Glucose 97 mg/dL (80-115); Potassium 3.8 mmol/L (3.5-5.1); Sodium 141 mmol/L (136-145)
[2018-03-11] MEDS ORDERED: Furosemide 40 MG TAB PO SCH (07:30)
[2018-03-11] MEDS: Aspirin 325 MG TAB PER TUBE SCH (08:33)
[2018-03-11] MEDS: Acetaminophen 650 MG/20.3 ML UDCUP PER TUBE PRN (08:33)
--- NOTE | 2018-03-11 08:33 | PDOC.CTH ---
Cardiology Progress Note - Subjective She is doing better every day. Fully awake and writing to communicate. - Objective Vital Signs Temp Pulse Resp BP Pulse Ox 03/11/18 07:09 94 146/67 H 03/11/18 07:08 92 21 H 95 03/11/18 07:00 98.3 F 03/11/18 06:00 22 H 03/11/18 04:00 22 H 03/11/18 02:16 93 166/78 H 03/11/18 02:00 19 03/11/18 01:31 89 19 93 L 03/11/18 00:00 98.5 F 12 03/10/18 23:14 96 201/111 H 03/10/18 22:25 96 201/111 H 03/10/18 22:00 12 Admit Weight 600 lb Weight 450 lb 6.47 oz 03/10/18 03/11/18 03/12/18 06:59 06:59 06:59 Intake Total 920 663 Output Total 1325 2307 40 Balance -405 -9764 -40 - Physical Examination General/Neuro: NAD Neck: no JVD present Lungs: CTA, unlabored respirations Heart: RRR Abdomen: NT/ND Extremities: + edema B (2+) - Telemetry Telemetry Rhythm: NSR, PAC's - Labs Result Diagrams: 03/11/18 05:45 03/11/18 03:30 Troponin/CKMB CK-MB (CK-2) 2.9 ng/mL (0-6.6) 02/26/18 01:05 Troponin I 0.180 ng/mL (< 0.028) H 02/26/18 06:57 - Assessment/Plan 1. Acute hypoxic hypercapnic respiratory insufficiency 2. Acute on chronic RV dysfunction. 3. Acute on chronic diastolic heart failure 4. Morbid obesity, BMI 103 5. Pickwickian syndrome 6. Hypokalemia 7. Afib RVR, in sinus now. PLAN: - Will plan on switching heparin drip to Eliquis 5 mg BID. - Continue PO amiodarone drip. - Replace K.
[2018-03-11] MEDS: Pantoprazole 40 MG GRANULES PACKET PER TUBE SCH (08:34)
[2018-03-11] MEDS: Enoxaparin Sodium 40 MG/0.4 ML SYRINGE SC SCH (08:34)
[2018-03-11] MEDS: Amiodarone 200 MG TAB PO SCH ×2 (08:34→20:47)
--- NOTE | 2018-03-11 08:40 | PRG ---
DATE OF SERVICE: 03/11/2018 The patient is awake, alert, able to communicate by writing. PHYSICAL EXAMINATION: VITAL SIGNS: Temperature 98.3, pulse 89, blood pressure 146/67. 24 hour intake 663, output 2307. HEENT: Unremarkable. NECK: Trach in good position. LUNGS: Clear. CARDIAC: S1 and S2 regular. ABDOMEN: Obese. EXTREMITIES: Edematous. LABORATORY DATA: Sodium 141, potassium 3.8, chloride 96, CO2 37, BUN 20, creatinine 0.9, glucose 97, white blood cell count 4.7, hematocrit 39, platelet count 102. ASSESSMENT: 1. Obesity hypoventilation syndrome. 2. Obstructive sleep apnea. 3. Status post tracheostomy placement. 4. Acute on chronic respiratory failure. 5. Improved thrombocytopenia. PLAN: 1. Trach collar trials as tolerated. 2. Up in chair. 3. Begin working on placement. 4. Change Lasix to Diamox given the development of a contraction alkalosis.
[2018-03-11] MEDS: acetaZOLAMIDE Sodium 500 mg Vial IVP SCH ×2 (10:01→20:48)
--- NOTE | 2018-03-11 12:08 | PDOC.PN ---
- Subjective Encounter Start Date: 03/11/18 Encounter Start Time: 11:10 Subjective: awake on vent -: responds well to verbal stimuli - Objective Resuscitation Status: Resuscitation Status FULL:Full Resuscitation MAR Reviewed: Yes Vital Signs & Weight: Vital Signs (12 hours) Temp Pulse Resp BP Pulse Ox 03/11/18 09:38 91 L 03/11/18 07:09 94 146/67 H 03/11/18 07:08 92 21 H 95 03/11/18 07:00 98.3 F 03/11/18 06:00 22 H 03/11/18 04:00 22 H 03/11/18 02:16 93 166/78 H 03/11/18 02:00 19 03/11/18 01:31 89 19 93 L Weight Admit Weight 600 lb Weight 450 lb 6.47 oz Most Recent Monitor Data Heart Rate from ECG 95 NIBP 125/63 NIBP BP-Mean 89 Respiration from ECG 28 SpO2 89 I&O: 03/10/18 03/11/18 03/12/18 06:59 06:59 06:59 Intake Total 920 663 60 Output Total 1325 2307 190 Balance -405 -1644 -130 Result Diagrams: 03/11/18 05:45 03/11/18 03:30 Phys Exam - Physical Examination HEENT: PERRLA, sclera anicteric trach+ Respiratory: no wheezing, no rales Cardiovascular: RRR, no significant murmur Gastrointestinal: soft, positive bowel sounds peg+, abd wall edema Musculoskeletal: pulses present, edema present Neurological: non-focal, moves all 4 limbs Psychiatric: A&O x 3 Dx/Plan (1) Acute and chronic respiratory failure Code(s): J96.20 - ACUTE AND CHR RESP FAILURE, UNSP W HYPOXIA OR HYPERCAPNIA Status: Chronic Qualifiers: Respiratory failure complication: hypercapnia Qualified Code(s): J96.22 - Acute and chronic respiratory failure with hypercapnia (2) CAROL (obstructive sleep apnea) Code(s): G47.33 - OBSTRUCTIVE SLEEP APNEA (ADULT) (PEDIATRIC) Status: Chronic (3) Afib Code(s): I48.91 - UNSPECIFIED ATRIAL FIBRILLATION Status: Chronic Qualifiers: Atrial fibrillation type: paroxysmal Qualified Code(s): I48.0 - Paroxysmal atrial fibrillation (4) Acute on chronic diastolic (congestive) heart failure Code(s): I50.33 - ACUTE ON CHRONIC DIASTOLIC (CONGESTIVE) HEART FAILURE Status : Chronic (5) Morbid obesity with BMI of 70 and over, adult Code(s): E66.01 - MORBID (SEVERE) OBESITY DUE TO EXCESS CALORIES; Z68.45 - BODY MASS INDEX (BMI) 70 OR GREATER, ADULT Status: Chronic (6) Pickwickian syndrome Code(s): E66.2 - MORBID (SEVERE) OBESITY WITH ALVEOLAR HYPOVENTILATION Status : Chronic (7) Status post tracheostomy Code(s): Z93.0 - TRACHEOSTOMY STATUS Status: Acute Comment: done on 03/09/18 (8) S/P percutaneous endoscopic gastrostomy (PEG) tube placement Code(s): Z93.1 - GASTROSTOMY STATUS Status: Acute Comment: done on 03/09/18 - Plan weaning on trach -: peg feeding -: oral amio 400mg bid, asp, oral lasix -: placement, anticoagulation per cardio advice -: PT to mobilize pt on bed/oob to chair as tolerated * . Review of Systems - Medications/Allergies Allergies/Adverse Reactions: Allergies Allergy/AdvReac Type Severity Reaction Status Date / Time No Known Drug Allergies Allergy Verified 03/08/18 14:16 Medications: Current Medications Acetaminophen (Tylenol Elixir) 1,000 mg PER TUBE Q6H PRN PRN Reason: Headache/Fever or Pain Last Admin: 03/11/18 08:33 Dose: 1,000 mg Acetazolamide Sodium (Diamox) 250 mg IVP Q12HR [facility] Last Admin: 03/11/18 10:01 Dose: 250 mg Albuterol/Ipratropium (Duoneb) 3 ml NEB [id number] [facility] Last Admin: 03/11/18 07:08 Dose: 3 ml Amiodarone HCl (Cordarone) 400 mg PO BID [facility] Last Admin: 03/11/18 08:34 Dose: 400 mg Lipase/Protease/Amylase ([place] [id number]) 1 cap FS .PER PROTOCOL PRN PRN Reason: TUBE OCCLUSION PROTOCOL Aspirin (Aspirin) 325 mg PER TUBE DAILY [facility] Last Admin: 03/11/18 08:33 Dose: 325 mg Clonidine (Catapres) 0.1 mg PO Q4H PRN PRN Reason: Systolic BP > 180 Last Admin: 03/10/18 18:11 Dose: 0.1 mg Enoxaparin Sodium (Lovenox) 40 mg SC 0900 [facility] Last Admin: 03/11/18 08:34 Dose: 40 mg Hydralazine HCl (Apresoline) 10 mg SLOW IVP Q4H PRN PRN Reason: Systolic BP > 180 Last Admin: 03/10/18 23:14 Dose: 10 mg Potassium Chloride 40 meq/ (Sodium Chloride) 270 mls @ 135 mls/hr IVPB ASDIR PRN PRN Reason: FOR SERUM K+ 2.5 - 3.5 Last Admin: 02/28/18 06:18 Dose: 270 mls Potassium Chloride 40 meq/ (Device) 100 mls @ 50 mls/hr IVPB ASDIR PRN PRN Reason: FOR SERUM K+ 2.5 - 3.5 Magnesium Sulfate 1 gm/ Sodium (Chloride) 102 mls @ 102 mls/hr IV PRN PRN PRN Reason: MAG LEVEL 1.4 - 2.0 Magnesium Sulfate 2 gm/ Device 100 mls @ 100 mls/hr IVPB ASDIR PRN PRN Reason: MAGNESIUM < 1.4 Potassium Phosphate 9 mmol/ (Sodium Chloride) 103 mls @ 25.75 mls/hr IVPB ASDIR PRN PRN Reason: Phosphate 1.0-1.8 Potassium Phosphate 12 mmol/ (Sodium Chloride) 254 mls @ 63.5 mls/hr IV ASDIR PRN PRN Reason: Serum phosphate 0.5-0.9 Potassium Phosphate 15 mmol/ (Sodium Chloride) 255 mls @ 63.75 mls/hr IV ASDIR PRN PRN Reason: Serum Phos < 0.5 Magnesium Oxide (Magnesium Oxide) 400 mg PO BIDPRN PRN PRN Reason: FOR SERUM MAG 1.4 - 2.0 Magnesium Oxide (Magnesium Oxide) 800 mg PO PRN PRN PRN Reason: FOR SERUM MAG < 1.4 Miscellaneous Medication (Phos-Nak) 1 pkt PO TIDPRN PRN PRN Reason: FOR PHOS LEVEL 1.0 - 1.8 Miscellaneous Medication (Phos-Nak) 2 pkt PO TIDPRN PRN PRN Reason: FOR PHOS LEVEL 0.5 - 1.0 Morphine Sulfate (Morphine) 4 mg SLOW IVP Q30MIN PRN PRN Reason: Pain Last Admin: 03/10/18 04:02 Dose: 4 mg Ondansetron HCl (Zofran Odt) 4 mg PO Q6H PRN PRN Reason: Nausea/Vomiting Ondansetron HCl (Zofran) 4 mg IVP Q6H PRN PRN Reason: Nausea/Vomiting Pantoprazole Sodium (Protonix) 40 mg PER TUBE DAILY [facility] Last Admin: 03/11/18 08:34 Dose: 40 mg Potassium Chloride (K-Dur) 40 meq PO ASDIR PRN PRN Reason: FOR SERUM K+ 2.5 - 3.5 Last Admin: 03/04/18 06:43 Dose: 40 meq Potassium Chloride (Klor-Con) 40 meq PER TUBE ASDIR PRN PRN Reason: FOR SERUM K+ 2.5-3.5 Last Admin: 03/09/18 06:22 Dose: 40 meq Sodium Bicarbonate (Bicarbonate, Sodium) 650 mg PER TUBE .PER PROTOCOL PRN PRN Reason: ENTERAL TUBE OCCLUSION Sodium Chloride (Flush - Normal Saline) 10 ml IVF Q12HR [facility] Last Admin: 03/11/18 08:34 Dose: 10 ml Sodium Chloride (Flush - Normal Saline) 10 ml IVF PRN PRN PRN Reason: Saline Flush
[2018-03-12 05:17] LABS: BUN (Urea Nitrogen) 29 mg/dL (9.8-20.1); Calc. Creatinine Clearance 203 mL/min (70-130); Calcium 9.6 mg/dL (7.8-10.44); Estimated GFR-MDRD 61; Glucose 93 mg/dL (80-115)
[2018-03-12 05:19] LABS: #Eosinphils 0.2 thou/uL (0.0-0.7); #Lymphocytes 0.7 thou/uL (1.20-3.40); #Monocytes 0.5 thou/uL (0.11-0.59); #Neutrophils 3.3 thou/uL (1.40-6.50); %Basophils 0.6 % (0.0-1.0); %Eosinophils 5.1 % (0.0-10.0); %Lymphocytes 14.4 % (21.0-51.0); %Monocytes 10.5 % (0.0-10.0); %Neutrophils 69.4 % (42.0-75.0); Mean Corpuscular Hemoglobin 24.4 pg (27.0-31.0); Mean Corpuscular Volume 84.2 fl (81.0-99.0); Mean Platelet Volume 10.6 fL (7.4-10.4); Platelet Count 111 thou/uL (130-400); RBC Distribution Width 20.1 % (11.5-14.5); White Blood Cell (WBC) Count 4.8 thou/uL (4.8-10.8)
[2018-03-12 05:26] LABS: Anion Gap 14 mmol/L (10-20); Carbon Dioxide 35 mmol/L (23-31); Chloride 96 mmol/L (98-107); Potassium 3.7 mmol/L (3.5-5.1); Sodium 141 mmol/L (136-145)
--- NOTE | 2018-03-12 08:01 | PRG ---
DATE OF SERVICE: 03/12/2018 SUBJECTIVE: The patient is doing extremely well and has been off the ventilator for most of the day. PHYSICAL EXAMINATION: VITAL SIGNS: Temperature is 98.8, pulse 90, blood pressure 98/50, O2 sat 92%, 24 intake 1980, output 90, weight not quantitated. HEENT: Unremarkable. NECK: Trach in good position. LUNGS: Clear. CARDIAC: S1 and S2 regular. ABDOMEN: Soft, nontender. EXTREMITIES: Edematous. LABORATORY DATA: White blood cell count 4.8, hematocrit 37.9, platelet count 111. Sodium 141, potas sium 3.7, chloride 96, CO2 35, BUN 29, creatinine 0.9, glucose 93. ASSESSMENT: 1. Acute on chronic respiratory failure. 2. Obesity ventilation syndrome/obstructive sleep apnea. 3. Status post tracheostomy placement. 4. Improved thrombocytopenia. PLAN: 1. Up in chair as tolerated. 2. Continue trach collar trials. 3. Begin working on placement. 4. Can likely go to [facility] tomorrow if stays off the ventilator today.
[2018-03-12] MEDS: Aspirin 325 MG TAB PER TUBE SCH (09:39)
[2018-03-12] MEDS: Pantoprazole 40 MG GRANULES PACKET PER TUBE SCH (09:39)
[2018-03-12] MEDS: acetaZOLAMIDE Sodium 500 mg Vial IVP SCH ×2 (09:39→20:24)
[2018-03-12] MEDS: Enoxaparin Sodium 40 MG/0.4 ML SYRINGE SC SCH (09:39)
[2018-03-12] MEDS: Amiodarone 200 MG TAB PO SCH ×2 (09:39→20:24)
--- NOTE | 2018-03-12 11:30 | PDOC.PN ---
- Subjective Encounter Start Date: 03/12/18 Encounter Start Time: 11:00 Subjective: is on trach and weaning off vent -: no chest pain or sob -: awake and oriented - Objective Resuscitation Status: Resuscitation Status FULL:Full Resuscitation MAR Reviewed: Yes Vital Signs & Weight: Vital Signs (12 hours) Temp Pulse Resp Pulse Ox 03/12/18 07:40 92 L 03/12/18 07:00 98.1 F 03/12/18 06:42 88 24 H 91 L 03/12/18 06:00 18 03/12/18 04:00 98.8 F 24 H 03/12/18 03:58 96 03/12/18 02:00 22 H 03/12/18 00:49 92 25 H 92 L 03/12/18 00:47 90 03/12/18 00:00 20 Weight Admit Weight 600 lb Weight 450 lb 6.47 oz Most Recent Monitor Data Heart Rate from ECG 89 NIBP 158/65 NIBP BP-Mean 99 Respiration from ECG 23 SpO2 91 I&O: 03/11/18 03/12/18 03/13/18 06:59 06:59 06:59 Intake Total 663 1988 Output Total 2307 1190 165 Balance -1644 798 -165 Result Diagrams: 03/12/18 04:20 03/12/18 04:20 Phys Exam - Physical Examination HEENT: PERRLA, moist MMs Neck: full ROM trach+ Respiratory: no wheezing, no rales Cardiovascular: RRR, no significant murmur Gastrointestinal: soft, no distention, positive bowel sounds peg+ Musculoskeletal: pulses present, edema present Neurological: non-focal, moves all 4 limbs Psychiatric: normal affect, A&O x 3 Dx/Plan (1) Acute and chronic respiratory failure Code(s): J96.20 - ACUTE AND CHR RESP FAILURE, UNSP W HYPOXIA OR HYPERCAPNIA Status: Acute Qualifiers: Respiratory failure complication: hypercapnia Qualified Code(s): J96.22 - Acute and chronic respiratory failure with hypercapnia (2) CAROL (obstructive sleep apnea) Code(s): G47.33 - OBSTRUCTIVE SLEEP APNEA (ADULT) (PEDIATRIC) Status: Chronic (3) Afib Code(s): I48.91 - UNSPECIFIED ATRIAL FIBRILLATION Status: Chronic Qualifiers: Atrial fibrillation type: paroxysmal Qualified Code(s): I48.0 - Paroxysmal atrial fibrillation (4) Acute on chronic diastolic (congestive) heart failure Code(s): I50.33 - ACUTE ON CHRONIC DIASTOLIC (CONGESTIVE) HEART FAILURE Status : Chronic (5) Morbid obesity with BMI of 70 and over, adult Code(s): E66.01 - MORBID (SEVERE) OBESITY DUE TO EXCESS CALORIES; Z68.45 - BODY MASS INDEX (BMI) 70 OR GREATER, ADULT Status: Chronic (6) Pickwickian syndrome Code(s): E66.2 - MORBID (SEVERE) OBESITY WITH ALVEOLAR HYPOVENTILATION Status : Chronic (7) Status post tracheostomy Code(s): Z93.0 - TRACHEOSTOMY STATUS Status: Acute Comment: done on 03/09/18 (8) S/P percutaneous endoscopic gastrostomy (PEG) tube placement Code(s): Z93.1 - GASTROSTOMY STATUS Status: Acute Comment: done on 03/09/18 - Plan is weaning from vent, on trach collar prn -: peg feeding -: to mobilize as tolerated -: on amiodarone 400mg bid, asp and diamox -: is slowly recovering, likely will be weaned off vent per pulm * . Review of Systems - Medications/Allergies Allergies/Adverse Reactions: Allergies Allergy/AdvReac Type Severity Reaction Status Date / Time No Known Drug Allergies Allergy Verified 03/08/18 14:16 Medications: Current Medications Acetaminophen (Tylenol Elixir) 1,000 mg PER TUBE Q6H PRN PRN Reason: Headache/Fever or Pain Last Admin: 03/11/18 08:33 Dose: 1,000 mg Acetazolamide Sodium (Diamox) 250 mg IVP Q12HR [facility] Last Admin: 03/12/18 09:39 Dose: 250 mg Albuterol/Ipratropium (Duoneb) 3 ml NEB [id number] [facility] Last Admin: 03/12/18 06:42 Dose: 3 ml Amiodarone HCl (Cordarone) 400 mg PO BID [facility] Last Admin: 03/12/18 09:39 Dose: 400 mg Lipase/Protease/Amylase ([place] [id number]) 1 cap FS .PER PROTOCOL PRN PRN Reason: TUBE OCCLUSION PROTOCOL Aspirin (Aspirin) 325 mg PER TUBE DAILY [facility] Last Admin: 03/12/18 09:39 Dose: 325 mg Clonidine (Catapres) 0.1 mg PO Q4H PRN PRN Reason: Systolic BP > 180 Last Admin: 03/10/18 18:11 Dose: 0.1 mg Enoxaparin Sodium (Lovenox) 40 mg SC 0900 [facility] Last Admin: 03/12/18 09:39 Dose: 40 mg Hydralazine HCl (Apresoline) 10 mg SLOW IVP Q4H PRN PRN Reason: Systolic BP > 180 Last Admin: 03/10/18 23:14 Dose: 10 mg Potassium Chloride 40 meq/ (Sodium Chloride) 270 mls @ 135 mls/hr IVPB ASDIR PRN PRN Reason: FOR SERUM K+ 2.5 - 3.5 Last Admin: 02/28/18 06:18 Dose: 270 mls Potassium Chloride 40 meq/ (Device) 100 mls @ 50 mls/hr IVPB ASDIR PRN PRN Reason: FOR SERUM K+ 2.5 - 3.5 Magnesium Sulfate 1 gm/ Sodium (Chloride) 102 mls @ 102 mls/hr IV PRN PRN PRN Reason: MAG LEVEL 1.4 - 2.0 Magnesium Sulfate 2 gm/ Device 100 mls @ 100 mls/hr IVPB ASDIR PRN PRN Reason: MAGNESIUM < 1.4 Potassium Phosphate 9 mmol/ (Sodium Chloride) 103 mls @ 25.75 mls/hr IVPB ASDIR PRN PRN Reason: Phosphate 1.0-1.8 Potassium Phosphate 12 mmol/ (Sodium Chloride) 254 mls @ 63.5 mls/hr IV ASDIR PRN PRN Reason: Serum phosphate 0.5-0.9 Potassium Phosphate 15 mmol/ (Sodium Chloride) 255 mls @ 63.75 mls/hr IV ASDIR PRN PRN Reason: Serum Phos < 0.5 Magnesium Oxide (Magnesium Oxide) 400 mg PO BIDPRN PRN PRN Reason: FOR SERUM MAG 1.4 - 2.0 Magnesium Oxide (Magnesium Oxide) 800 mg PO PRN PRN PRN Reason: FOR SERUM MAG < 1.4 Miscellaneous Medication (Phos-Nak) 1 pkt PO TIDPRN PRN PRN Reason: FOR PHOS LEVEL 1.0 - 1.8 Miscellaneous Medication (Phos-Nak) 2 pkt PO TIDPRN PRN PRN Reason: FOR PHOS LEVEL 0.5 - 1.0 Morphine Sulfate (Morphine) 4 mg SLOW IVP Q30MIN PRN PRN Reason: Pain Last Admin: 03/10/18 04:02 Dose: 4 mg Ondansetron HCl (Zofran Odt) 4 mg PO Q6H PRN PRN Reason: Nausea/Vomiting Ondansetron HCl (Zofran) 4 mg IVP Q6H PRN PRN Reason: Nausea/Vomiting Pantoprazole Sodium (Protonix) 40 mg PER TUBE DAILY [facility] Last Admin: 03/12/18 09:39 Dose: 40 mg Potassium Chloride (K-Dur) 40 meq PO ASDIR PRN PRN Reason: FOR SERUM K+ 2.5 - 3.5 Last Admin: 03/04/18 06:43 Dose: 40 meq Potassium Chloride (Klor-Con) 40 meq PER TUBE ASDIR PRN PRN Reason: FOR SERUM K+ 2.5-3.5 Last Admin: 03/09/18 06:22 Dose: 40 meq Sodium Bicarbonate (Bicarbonate, Sodium) 650 mg PER TUBE .PER PROTOCOL PRN PRN Reason: ENTERAL TUBE OCCLUSION Sodium Chloride (Flush - Normal Saline) 10 ml IVF Q12HR [facility] Last Admin: 03/12/18 09:40 Dose: 10 ml Sodium Chloride (Flush - Normal Saline) 10 ml IVF PRN PRN PRN Reason: Saline Flush
--- NOTE | 2018-03-12 18:15 | PDOC.CTH ---
Cardiology Progress Note - Subjective No new issues. Remains in sinus. - Objective Vital Signs Temp Pulse Pulse Pulse Resp BP BP 03/12/18 13:51 85 20 03/12/18 12:00 98.4 F 03/12/18 11:20 95 94 159/85 H 188/73 H 03/12/18 08:00 98.1 F 89 18 03/12/18 07:40 03/12/18 07:00 98.1 F 03/12/18 06:42 88 24 H Pulse Ox Pulse Ox Pulse Ox 03/12/18 13:51 93 L 03/12/18 12:00 03/12/18 11:20 93 L 91 L 03/12/18 08:00 93 L 03/12/18 07:40 92 L 03/12/18 07:00 03/12/18 06:42 91 L Admit Weight 600 lb Weight 450 lb 6.47 oz 03/11/18 03/12/18 03/13/18 06:59 06:59 06:59 Intake Total 663 1988 Output Total 2307 1190 290 Balance -1644 798 -290 - Physical Examination General/Neuro: NAD Neck: no JVD present Lungs: CTA, unlabored respirations Heart: RRR Abdomen: NT/ND Extremities: + edema B (2+) - Telemetry Telemetry Rhythm: NSR, PAC's - Labs Result Diagrams: 03/12/18 04:20 03/12/18 04:20 Troponin/CKMB CK-MB (CK-2) 2.9 ng/mL (0-6.6) 02/26/18 01:05 Troponin I 0.180 ng/mL (< 0.028) H 02/26/18 06:57 - Assessment/Plan 1. Acute hypoxic hypercapnic respiratory insufficiency 2. Acute on chronic RV dysfunction. 3. Acute on chronic diastolic heart failure 4. Morbid obesity, BMI 103 5. Pickwickian syndrome 6. Afib RVR, in sinus now. PLAN: - Eliquis 5 mg BID. - Amiodarone load. - Supportive care.
[2018-03-12] MEDS: Apixaban 5 MG TAB PO SCH (20:24)
[2018-03-13 05:54] LABS: BUN (Urea Nitrogen) 33 mg/dL (9.8-20.1); Calc. Creatinine Clearance 203 mL/min (70-130); Calcium 9.6 mg/dL (7.8-10.44); Estimated GFR-MDRD 61; Glucose 103 mg/dL (80-115)
[2018-03-13 06:03] LABS: Anion Gap 12 mmol/L (10-20); Carbon Dioxide 37 mmol/L (23-31); Chloride 96 mmol/L (98-107); Potassium 3.8 mmol/L (3.5-5.1); Sodium 141 mmol/L (136-145)
[2018-03-13 06:18] LABS: Band 3 % (5-11); Eosinophils 10 % (0-10); Hemoglobin 11.1 g/dL (12.0-16.0); Lymphocytes 16 % (21-51); MDiff Complete? YES; Mean Corpuscular HGB CONC 28.8 g/dL (32.0-36.0); Mean Corpuscular Hemoglobin 24.3 pg (27.0-31.0); Mean Corpuscular Volume 84.4 fl (81.0-99.0); Mean Platelet Volume 9.9 fL (7.4-10.4); Monocytes 18 % (0-10); Myelocyte 1 % (0-0); Neutrophil 52 % (42-75); Nucleated RBC 1 % (0); PLT Morphology Comment Appears Decreased; Platelet Count 119 thou/uL (130-400); RBC Distribution Width 19.7 % (11.5-14.5); Red Blood Cell (RBC) Count 4.57 mill/uL (4.20-5.40); White Blood Cell (WBC) Count 5.4 thou/uL (4.8-10.8)
--- NOTE | 2018-03-13 08:16 | PRG ---
DATE OF SERVICE: 03/13/2018 SUBJECTIVE: The patient was on the ventilator last night. She is on trach collar this morning. Debbie ears to be doing well. OBJECTIVE: VITAL SIGNS: Temperature 98.2, pulse 81, blood pressure 114/51. A 24-hour intake 1880, output 1200. HEENT: Unremarkable. NECK: No JVD. Trach in good position. LUNGS: Clear, but distant breath sounds. CARDIAC: S1 and S2 regular. ABDOMEN: Soft. EXTREMITIES: No edema. LABORATORY DATA: White blood cell count 5.4, hematocrit 38.5, platelet count 119. Sodium 141, potas sium 3.8, chloride 96, CO2 37, BUN 33, creatinine 0.9, glucose 103. ASSESSMENT: 1. Acute on chronic respiratory failure. 2. Obesity hypoventilation syndrome. 3. Status post trach. PLAN: 1. Extend time off ventilator - hopefully she can go all night without the ventilator. She could be moved to [facility] once she is no longer requiring nocturnal ventilation. 2. She is currently on Eliquis for paroxysmal atrial fibrillation and stroke prophylaxis.
[2018-03-13] MEDS: Amiodarone 200 MG TAB PO SCH ×2 (08:41→20:55)
[2018-03-13] MEDS: Aspirin 325 MG TAB PER TUBE SCH (08:41)
[2018-03-13] MEDS: Apixaban 5 MG TAB PO SCH ×2 (08:41→21:00)
[2018-03-13] MEDS: acetaZOLAMIDE Sodium 500 mg Vial IVP SCH ×2 (08:42→20:55)
[2018-03-13] MEDS: Pantoprazole 40 MG GRANULES PACKET PER TUBE SCH (08:43)
--- NOTE | 2018-03-13 13:27 | PDOC.CTH ---
Cardiology Progress Note - Subjective She is doing well. On T collar. - Objective Vital Signs Temp Pulse Pulse Pulse Resp BP BP 03/13/18 12:00 98.4 F 03/13/18 10:23 128 H 105 H 177/85 H 03/13/18 08:00 99.4 F 85 22 H 03/13/18 06:53 86 114/51 L 03/13/18 06:00 21 H 03/13/18 04:00 98.2 F 23 H 03/13/18 02:54 89 03/13/18 02:00 22 H BP Pulse Ox 03/13/18 12:00 03/13/18 10:23 175/83 H 03/13/18 08:00 89 L 03/13/18 06:53 03/13/18 06:00 03/13/18 04:00 03/13/18 02:54 03/13/18 02:00 Admit Weight 600 lb Weight 450 lb 6.47 oz 03/12/18 03/13/18 03/14/18 06:59 06:59 06:59 Intake Total 1988 1880 20 Output Total 1190 1200 365 Balance 798 680 -345 - Physical Examination General/Neuro: NAD Neck: no JVD present Lungs: CTA, unlabored respirations Heart: RRR Abdomen: NT/ND Extremities: + edema B (2+) - Telemetry Telemetry Rhythm: NSR - Labs Result Diagrams: 03/13/18 05:00 03/13/18 05:00 Troponin/CKMB CK-MB (CK-2) 2.9 ng/mL (0-6.6) 02/26/18 01:05 Troponin I 0.180 ng/mL (< 0.028) H 02/26/18 06:57 - Assessment/Plan 1. Acute hypoxic hypercapnic respiratory insufficiency 2. Acute on chronic RV dysfunction. 3. Acute on chronic diastolic heart failure 4. Morbid obesity, BMI 103 5. Pickwickian syndrome 6. Afib RVR, in sinus now. PLAN: - Eliquis 5 mg BID. - Amiodarone load. - Supportive care.
--- NOTE | 2018-03-13 15:43 | PDOC.PN ---
- Subjective Encounter Start Date: 03/13/18 Encounter Start Time: 12:00 Subjective: on trach collar, awake, responds to verbal stimuli -: is a bit emotional - Objective Resuscitation Status: Resuscitation Status FULL:Full Resuscitation MAR Reviewed: Yes Vital Signs & Weight: Vital Signs (12 hours) Temp Pulse Pulse Pulse Resp BP BP 03/13/18 14:13 81 32 H 03/13/18 12:00 98.4 F 03/13/18 10:23 128 H 105 H 177/85 H 03/13/18 08:00 99.4 F 85 22 H 03/13/18 06:53 86 114/51 L 03/13/18 06:00 21 H 03/13/18 04:00 98.2 F 23 H BP Pulse Ox 03/13/18 14:13 91 L 03/13/18 12:00 03/13/18 10:23 175/83 H 03/13/18 08:00 89 L 03/13/18 06:53 03/13/18 06:00 03/13/18 04:00 Weight Admit Weight 600 lb Weight 450 lb 6.47 oz Most Recent Monitor Data Heart Rate from ECG 85 NIBP 145/71 NIBP BP-Mean 86 Respiration from ECG 32 SpO2 91 I&O: 03/12/18 03/13/18 03/14/18 06:59 06:59 06:59 Intake Total 1988 1880 120 Output Total 1190 1200 395 Balance 798 680 -275 Result Diagrams: 03/13/18 05:00 03/13/18 05:00 Phys Exam - Physical Examination HEENT: PERRLA, moist MMs Neck: no JVD, supple Respiratory: no wheezing, no rales rhonchi+, distant breath sounds Cardiovascular: RRR, no significant murmur Gastrointestinal: soft, non-tender, positive bowel sounds peg+ Musculoskeletal: pulses present, edema present Neurological: non-focal, moves all 4 limbs Psychiatric: A&O x 3 Dx/Plan (1) Acute and chronic respiratory failure Code(s): J96.20 - ACUTE AND CHR RESP FAILURE, UNSP W HYPOXIA OR HYPERCAPNIA Status: Acute Qualifiers: Respiratory failure complication: hypercapnia Qualified Code(s): J96.22 - Acute and chronic respiratory failure with hypercapnia (2) CAROL (obstructive sleep apnea) Code(s): G47.33 - OBSTRUCTIVE SLEEP APNEA (ADULT) (PEDIATRIC) Status: Chronic (3) Afib Code(s): I48.91 - UNSPECIFIED ATRIAL FIBRILLATION Status: Chronic Qualifiers: Atrial fibrillation type: paroxysmal Qualified Code(s): I48.0 - Paroxysmal atrial fibrillation (4) Acute on chronic diastolic (congestive) heart failure Code(s): I50.33 - ACUTE ON CHRONIC DIASTOLIC (CONGESTIVE) HEART FAILURE Status : Chronic (5) Morbid obesity with BMI of 70 and over, adult Code(s): E66.01 - MORBID (SEVERE) OBESITY DUE TO EXCESS CALORIES; Z68.45 - BODY MASS INDEX (BMI) 70 OR GREATER, ADULT Status: Chronic (6) Pickwickian syndrome Code(s): E66.2 - MORBID (SEVERE) OBESITY WITH ALVEOLAR HYPOVENTILATION Status : Chronic (7) Status post tracheostomy Code(s): Z93.0 - TRACHEOSTOMY STATUS Status: Acute Comment: done on 03/09/18 (8) S/P percutaneous endoscopic gastrostomy (PEG) tube placement Code(s): Z93.1 - GASTROSTOMY STATUS Status: Acute Comment: done on 03/09/18 - Plan has been off vent, is on trach collar -: may allow oral diet if she clears swallow -: speaking valve if ok with pulm -: is on amiodarone, asp and started on eliquis from today -: PT to mobilize pt as tolerated, will need placement * . Review of Systems - Medications/Allergies Allergies/Adverse Reactions: Allergies Allergy/AdvReac Type Severity Reaction Status Date / Time No Known Drug Allergies Allergy Verified 03/08/18 14:16 Medications: Current Medications Acetaminophen (Tylenol Elixir) 1,000 mg PER TUBE Q6H PRN PRN Reason: Headache/Fever or Pain Last Admin: 03/11/18 08:33 Dose: 1,000 mg Acetazolamide Sodium (Diamox) 250 mg IVP Q12HR [facility] Last Admin: 03/13/18 08:42 Dose: 250 mg Albuterol/Ipratropium (Duoneb) 3 ml NEB [id number] [facility] Last Admin: 03/13/18 14:13 Dose: 3 ml Amiodarone HCl (Cordarone) 400 mg PO BID [facility] Last Admin: 03/13/18 08:41 Dose: 400 mg Lipase/Protease/[place]ylase ([place] [id number]) 1 cap FS .PER PROTOCOL PRN PRN Reason: TUBE OCCLUSION PROTOCOL Apixaban (Eliquis) 5 mg PO BID [facility] Last Admin: 03/13/18 08:41 Dose: 5 mg Aspirin (Aspirin) 325 mg PER TUBE DAILY [facility] Last Admin: 03/13/18 08:41 Dose: 325 mg Clonidine (Catapres) 0.1 mg PO Q4H PRN PRN Reason: Systolic BP > 180 Last Admin: 03/10/18 18:11 Dose: 0.1 mg Hydralazine HCl (Apresoline) 10 mg SLOW IVP Q4H PRN PRN Reason: Systolic BP > 180 Last Admin: 03/10/18 23:14 Dose: 10 mg Potassium Chloride 40 meq/ (Sodium Chloride) 270 mls @ 135 mls/hr IVPB ASDIR PRN PRN Reason: FOR SERUM K+ 2.5 - 3.5 Last Admin: 02/28/18 06:18 Dose: 270 mls Potassium Chloride 40 meq/ (Device) 100 mls @ 50 mls/hr IVPB ASDIR PRN PRN Reason: FOR SERUM K+ 2.5 - 3.5 Magnesium Sulfate 1 gm/ Sodium (Chloride) 102 mls @ 102 mls/hr IV PRN PRN PRN Reason: MAG LEVEL 1.4 - 2.0 Magnesium Sulfate 2 gm/ Device 100 mls @ 100 mls/hr IVPB ASDIR PRN PRN Reason: MAGNESIUM < 1.4 Potassium Phosphate 9 mmol/ (Sodium Chloride) 103 mls @ 25.75 mls/hr IVPB ASDIR PRN PRN Reason: Phosphate 1.0-1.8 Potassium Phosphate 12 mmol/ (Sodium Chloride) 254 mls @ 63.5 mls/hr IV ASDIR PRN PRN Reason: Serum phosphate 0.5-0.9 Potassium Phosphate 15 mmol/ (Sodium Chloride) 255 mls @ 63.75 mls/hr IV ASDIR PRN PRN Reason: Serum Phos < 0.5 Magnesium Oxide (Magnesium Oxide) 400 mg PO BIDPRN PRN PRN Reason: FOR SERUM MAG 1.4 - 2.0 Magnesium Oxide (Magnesium Oxide) 800 mg PO PRN PRN PRN Reason: FOR SERUM MAG < 1.4 Miscellaneous Medication (Phos-Nak) 1 pkt PO TIDPRN PRN PRN Reason: FOR PHOS LEVEL 1.0 - 1.8 Miscellaneous Medication (Phos-Nak) 2 pkt PO TIDPRN PRN PRN Reason: FOR PHOS LEVEL 0.5 - 1.0 Morphine Sulfate (Morphine) 4 mg SLOW IVP Q30MIN PRN PRN Reason: Pain Last Admin: 03/10/18 04:02 Dose: 4 mg Ondansetron HCl (Zofran Odt) 4 mg PO Q6H PRN PRN Reason: Nausea/Vomiting Ondansetron HCl (Zofran) 4 mg IVP Q6H PRN PRN Reason: Nausea/Vomiting Pantoprazole Sodium (Protonix) 40 mg PER TUBE DAILY [facility] Last Admin: 03/13/18 08:43 Dose: 40 mg Potassium Chloride (K-Dur) 40 meq PO ASDIR PRN PRN Reason: FOR SERUM K+ 2.5 - 3.5 Last Admin: 03/04/18 06:43 Dose: 40 meq Potassium Chloride (Klor-Con) 40 meq PER TUBE ASDIR PRN PRN Reason: FOR SERUM K+ 2.5-3.5 Last Admin: 03/09/18 06:22 Dose: 40 meq Sodium Bicarbonate (Bicarbonate, Sodium) 650 mg PER TUBE .PER PROTOCOL PRN PRN Reason: ENTERAL TUBE OCCLUSION Sodium Chloride (Flush - Normal Saline) 10 ml IVF Q12HR [facility] Last Admin: 03/13/18 08:43 Dose: 10 ml Sodium Chloride (Flush - Normal Saline) 10 ml IVF PRN PRN PRN Reason: Saline Flush Last Admin: 03/13/18 08:43 Dose: 10 ml
[2018-03-14] MEDS: hydrALAZINE 20 MG/ML VIAL SLOW IVP PRN ×2 (00:25→17:06)
[2018-03-14] MEDS: Morphine 4 MG/ML VIAL SLOW IVP PRN (03:35)
[2018-03-14 04:29] LABS: #Eosinphils 0.2 thou/uL (0.0-0.7); #Lymphocytes 0.7 thou/uL (1.20-3.40); #Neutrophils 5.4 thou/uL (1.40-6.50); %Basophils 0.5 % (0.0-1.0); %Eosinophils 3.3 % (0.0-10.0); %Monocytes 13.3 % (0.0-10.0); Hemoglobin 11.6 g/dL (12.0-16.0); Mean Corpuscular HGB CONC 29.1 g/dL (32.0-36.0); Mean Corpuscular Hemoglobin 25.1 pg (27.0-31.0); Mean Corpuscular Volume 86.2 fl (81.0-99.0); Mean Platelet Volume 10.2 fL (7.4-10.4); Platelet Count 123 thou/uL (130-400); RBC Distribution Width 19.7 % (11.5-14.5); Red Blood Cell (RBC) Count 4.63 mill/uL (4.20-5.40); White Blood Cell (WBC) Count 7.4 thou/uL (4.8-10.8)
[2018-03-14 04:53] LABS: BUN (Urea Nitrogen) 38 mg/dL (9.8-20.1); Calc. Creatinine Clearance 205 mL/min (70-130); Calcium 9.8 mg/dL (7.8-10.44); Estimated GFR-MDRD 61; Glucose 112 mg/dL (80-115)
[2018-03-14 05:02] LABS: Anion Gap 12 mmol/L (10-20); Carbon Dioxide 37 mmol/L (23-31); Chloride 96 mmol/L (98-107); Potassium 3.8 mmol/L (3.5-5.1); Sodium 141 mmol/L (136-145)
[2018-03-14] MEDS ORDERED: Sodium Chloride For Inhalation 0.9% 3 ML NEB ONE (06:18)
[2018-03-14] MEDS: Pantoprazole 40 MG GRANULES PACKET PER TUBE SCH (08:27)
[2018-03-14] MEDS: acetaZOLAMIDE Sodium 500 mg Vial IVP SCH ×2 (08:27→21:31)
[2018-03-14] MEDS: Apixaban 5 MG TAB PO SCH ×2 (08:27→21:31)
[2018-03-14] MEDS: Amiodarone 200 MG TAB PO SCH ×2 (08:27→21:31)
[2018-03-14 09:34] LABS: pH, Arterial 7.29 (7.35-7.45)
[2018-03-14 09:35] LABS: Actual Bicarbonate (HCO3a) 41.1 mEq/L (22-26); Base Excess (BEa) 11.5 mEq/L (0 (+/-) 2.5); CO2 Tension 87.7 mmHg (35.0-45.0); O2 Tension (PaO2) 76.9 mmHg (80.0-100.0)
[2018-03-14 09:36] LABS: Calcium, Ionized 1.3 mmol/L (1.12-1.30); Hematocrit-ABG 42.1 % (36.0-47.0); Hemoglobin (Hb) 11.1 g/dL (12.0-16.0); Puncture Site RRA
[2018-03-14 09:37] LABS: ALV-art Gradient 169.975 (0-20)
--- NOTE | 2018-03-14 13:45 | PDOC.PN ---
- Subjective Encounter Start Date: 03/14/18 Encounter Start Time: 07:15 Subjective: lethargic this am, is on vent - Objective Resuscitation Status: Resuscitation Status FULL:Full Resuscitation MAR Reviewed: Yes Vital Signs & Weight: Vital Signs (12 hours) Temp Pulse Resp BP Pulse Ox 03/14/18 12:35 65 149/72 H 03/14/18 12:00 17 03/14/18 10:00 16 03/14/18 09:49 69 149/68 H 03/14/18 08:00 16 03/14/18 07:00 98.0 F 03/14/18 06:22 86 131/63 03/14/18 06:16 87 27 H 91 L 03/14/18 04:00 99.2 F 03/14/18 02:48 95 Weight Admit Weight 600 lb Weight 450 lb 6.47 oz Most Recent Monitor Data Heart Rate from ECG 68 NIBP 140/67 NIBP BP-Mean 113 Respiration from ECG 31 SpO2 97 I&O: 03/13/18 03/14/18 03/15/18 06:59 06:59 06:59 Intake Total 1880 775 120 Output Total 1200 1095 200 Balance 680 -320 -80 Result Diagrams: 03/14/18 04:03 03/14/18 04:03 Phys Exam - Physical Examination HEENT: PERRLA, sclera anicteric Neck: no JVD, supple trach+ Respiratory: no wheezing rhonchi+, distant breath sounds Cardiovascular: RRR, no significant murmur Gastrointestinal: soft, non-tender, positive bowel sounds peg+ Musculoskeletal: pulses present, edema present Neurological: non-focal, moves all 4 limbs Dx/Plan (1) Acute and chronic respiratory failure Code(s): J96.20 - ACUTE AND CHR RESP FAILURE, UNSP W HYPOXIA OR HYPERCAPNIA Status: Acute Qualifiers: Respiratory failure complication: hypercapnia Qualified Code(s): J96.22 - Acute and chronic respiratory failure with hypercapnia (2) CAROL (obstructive sleep apnea) Code(s): G47.33 - OBSTRUCTIVE SLEEP APNEA (ADULT) (PEDIATRIC) Status: Chronic (3) Afib Code(s): I48.91 - UNSPECIFIED ATRIAL FIBRILLATION Status: Chronic Qualifiers: Atrial fibrillation type: paroxysmal Qualified Code(s): I48.0 - Paroxysmal atrial fibrillation (4) Acute on chronic diastolic (congestive) heart failure Code(s): I50.33 - ACUTE ON CHRONIC DIASTOLIC (CONGESTIVE) HEART FAILURE Status : Chronic (5) Morbid obesity with BMI of 70 and over, adult Code(s): E66.01 - MORBID (SEVERE) OBESITY DUE TO EXCESS CALORIES; Z68.45 - BODY MASS INDEX (BMI) 70 OR GREATER, ADULT Status: Chronic (6) Pickwickian syndrome Code(s): E66.2 - MORBID (SEVERE) OBESITY WITH ALVEOLAR HYPOVENTILATION Status : Chronic (7) Status post tracheostomy Code(s): Z93.0 - TRACHEOSTOMY STATUS Status: Acute Comment: done on 03/09/18 (8) S/P percutaneous endoscopic gastrostomy (PEG) tube placement Code(s): Z93.1 - GASTROSTOMY STATUS Status: Acute Comment: done on 03/09/18 - Plan is back on vent for co2 retention -: weaning when stable -: on amiodarone 400mg bid, eliquis and asp 81mg daily -: prognosis guarded with life threatening obesity * . Review of Systems - Medications/Allergies Allergies/Adverse Reactions: Allergies Allergy/AdvReac Type Severity Reaction Status Date / Time No Known Drug Allergies Allergy Verified 03/08/18 14:16 Medications: Current Medications Acetaminophen (Tylenol Elixir) 1,000 mg PER TUBE Q6H PRN PRN Reason: Headache/Fever or Pain Last Admin: 03/11/18 08:33 Dose: 1,000 mg Acetazolamide Sodium (Diamox) 250 mg IVP Q12HR [facility] Last Admin: 03/14/18 08:27 Dose: 250 mg Albuterol/Ipratropium (Duoneb) 3 ml NEB [id number] [facility] Last Admin: 03/14/18 12:34 Dose: 3 ml Amiodarone HCl (Cordarone) 400 mg PO BID [facility] Last Admin: 03/14/18 08:27 Dose: 400 mg Lipase/Protease/Amylase ([place] [id number]) 1 cap FS .PER PROTOCOL PRN PRN Reason: TUBE OCCLUSION PROTOCOL Apixaban (Eliquis) 5 mg PO BID [facility] Last Admin: 03/14/18 08:27 Dose: 5 mg Aspirin (Aspirin Chewable) 81 mg PO DAILY [facility] Last Admin: 03/14/18 08:27 Dose: 81 mg Clonidine (Catapres) 0.1 mg PO Q4H PRN PRN Reason: Systolic BP > 180 Last Admin: 03/10/18 18:11 Dose: 0.1 mg Hydralazine HCl (Apresoline) 10 mg SLOW IVP Q4H PRN PRN Reason: Systolic BP > 180 Last Admin: 03/14/18 00:25 Dose: 10 mg Potassium Chloride 40 meq/ (Sodium Chloride) 270 mls @ 135 mls/hr IVPB ASDIR PRN PRN Reason: FOR SERUM K+ 2.5 - 3.5 Last Admin: 02/28/18 06:18 Dose: 270 mls Potassium Chloride 40 meq/ (Device) 100 mls @ 50 mls/hr IVPB ASDIR PRN PRN Reason: FOR SERUM K+ 2.5 - 3.5 Magnesium Sulfate 1 gm/ Sodium (Chloride) 102 mls @ 102 mls/hr IV PRN PRN PRN Reason: MAG LEVEL 1.4 - 2.0 Magnesium Sulfate 2 gm/ Device 100 mls @ 100 mls/hr IVPB ASDIR PRN PRN Reason: MAGNESIUM < 1.4 Potassium Phosphate 9 mmol/ (Sodium Chloride) 103 mls @ 25.75 mls/hr IVPB ASDIR PRN PRN Reason: Phosphate 1.0-1.8 Potassium Phosphate 12 mmol/ (Sodium Chloride) 254 mls @ 63.5 mls/hr IV ASDIR PRN PRN Reason: Serum phosphate 0.5-0.9 Potassium Phosphate 15 mmol/ (Sodium Chloride) 255 mls @ 63.75 mls/hr IV ASDIR PRN PRN Reason: Serum Phos < 0.5 Magnesium Oxide (Magnesium Oxide) 400 mg PO BIDPRN PRN PRN Reason: FOR SERUM MAG 1.4 - 2.0 Magnesium Oxide (Magnesium Oxide) 800 mg PO PRN PRN PRN Reason: FOR SERUM MAG < 1.4 Miscellaneous Medication (Phos-Nak) 1 pkt PO TIDPRN PRN PRN Reason: FOR PHOS LEVEL 1.0 - 1.8 Miscellaneous Medication (Phos-Nak) 2 pkt PO TIDPRN PRN PRN Reason: FOR PHOS LEVEL 0.5 - 1.0 Morphine Sulfate (Morphine) 4 mg SLOW IVP Q30MIN PRN PRN Reason: Pain Last Admin: 03/14/18 03:35 Dose: 4 mg Ondansetron HCl (Zofran Odt) 4 mg PO Q6H PRN PRN Reason: Nausea/Vomiting Ondansetron HCl (Zofran) 4 mg IVP Q6H PRN PRN Reason: Nausea/Vomiting Pantoprazole Sodium (Protonix) 40 mg PER TUBE DAILY [facility] Last Admin: 03/14/18 08:27 Dose: 40 mg Potassium Chloride (K-Dur) 40 meq PO ASDIR PRN PRN Reason: FOR SERUM K+ 2.5 - 3.5 Last Admin: 03/04/18 06:43 Dose: 40 meq Potassium Chloride (Klor-Con) 40 meq PER TUBE ASDIR PRN PRN Reason: FOR SERUM K+ 2.5-3.5 Last Admin: 03/09/18 06:22 Dose: 40 meq Sodium Bicarbonate (Bicarbonate, Sodium) 650 mg PER TUBE .PER PROTOCOL PRN PRN Reason: ENTERAL TUBE OCCLUSION Sodium Chloride (Flush - Normal Saline) 10 ml IVF Q12HR [facility] Last Admin: 03/14/18 08:27 Dose: 10 ml Sodium Chloride (Flush - Normal Saline) 10 ml IVF PRN PRN PRN Reason: Saline Flush Last Admin: 03/14/18 08:28 Dose: 10 ml
--- NOTE | 2018-03-14 16:43 | PRG ---
DATE OF SERVICE: 03/14/2018 SUBJECTIVE: Ms. Sauceda is doing well. She remains intubated on the ventilator. She is maintaining sinus rhythm. OBJECTIVE: VITAL SIGNS: Blood pressure is 169/70 and pulse is 70, it is sinus. LUNGS: Clear. CARDIAC: Normal S1, normal S2. ASSESSMENT: 1. Paroxysmal atrial fibrillation, maintaining sinus rhythm. 2. Obesity hypoventilation, on the ventilator. 3. Morbid obesity. 4. Chronic diastolic heart failure. PLAN: Continue current medical regimen. She is on Eliquis and amiodarone.
--- NOTE | 2018-03-14 20:48 | PRG ---
DATE OF SERVICE: 03/14/2018 SUBJECTIVE: Ms. Sauceda is clinically unchanged. OBJECTIVE: VITAL SIGNS: Heart rate 72, respiratory 22, oximetry is 91, blood pressure 154/71. Intake and outpu t is Negative 320 mL. LUNGS: Remarkable for coarse equal breath sounds anteriorly. HEART: Regular rhythm. ABDOMEN: Soft. EXTREMITIES: Without asymmetry. NEUROLOGIC: Nonfocal. LABORATORY DATA: White count 7.4, hemoglobin 11.6, platelets 123. Sodium 141, potassium 3.8, chlori de 96, bicarbonate 37, BUN 38, creatinine 0.93. pH 7.29, CO2 87, pO2 76. She is on a trach collar for many hours yesterday and last night, had to go back on mechanical ventil ation because of hypercarbia and somnolence this morning. IMPRESSION: 1. Obesity hypoventilation syndrome. 2. Respiratory failure. 3. Atrial fibrillation, now in sinus rhythm. 4. Diastolic heart failure. PLAN: Continue current ventilatory support, weaning trial slowly. Her prognosis is quite guarded. Critical care time was 30 minutes.
[2018-03-15 04:57] LABS: #Eosinphils 0.3 thou/uL (0.0-0.7); #Lymphocytes 0.9 thou/uL (1.20-3.40); #Monocytes 0.7 thou/uL (0.11-0.59); #Neutrophils 3.5 thou/uL (1.40-6.50); %Basophils 0.6 % (0.0-1.0); %Eosinophils 5.4 % (0.0-10.0); %Lymphocytes 16.3 % (21.0-51.0); %Monocytes 13.3 % (0.0-10.0); %Neutrophils 64.3 % (42.0-75.0); Hemoglobin 10.9 g/dL (12.0-16.0); Mean Corpuscular HGB CONC 29.2 g/dL (32.0-36.0); Mean Corpuscular Hemoglobin 24.8 pg (27.0-31.0); Mean Corpuscular Volume 84.8 fl (81.0-99.0); Mean Platelet Volume 9.9 fL (7.4-10.4); Platelet Count 126 thou/uL (130-400); RBC Distribution Width 19.8 % (11.5-14.5); Red Blood Cell (RBC) Count 4.41 mill/uL (4.20-5.40); White Blood Cell (WBC) Count 5.4 thou/uL (4.8-10.8)
[2018-03-15 04:58] LABS: BUN (Urea Nitrogen) 46 mg/dL (9.8-20.1); Calc. Creatinine Clearance 203 mL/min (70-130); Calcium 9.5 mg/dL (7.8-10.44); Estimated GFR-MDRD 61; Glucose 107 mg/dL (80-115)
[2018-03-15 05:07] LABS: Anion Gap 11 mmol/L (10-20); Carbon Dioxide 37 mmol/L (23-31); Chloride 98 mmol/L (98-107); Potassium 3.8 mmol/L (3.5-5.1); Sodium 142 mmol/L (136-145)
[2018-03-15] MEDS: Apixaban 5 MG TAB PO SCH ×2 (08:33→21:33)
[2018-03-15] MEDS: acetaZOLAMIDE Sodium 500 mg Vial IVP SCH ×2 (08:33→21:32)
[2018-03-15] MEDS: Amiodarone 200 MG TAB PO SCH ×2 (08:33→21:32)
[2018-03-15] MEDS: Pantoprazole 40 MG GRANULES PACKET PER TUBE SCH (08:33)
[2018-03-15] MEDS ORDERED: Losartan 25 MG TAB PO SCH (11:00)
--- NOTE | 2018-03-15 11:01 | PRG ---
DATE OF SERVICE: 03/15/2018 SUBJECTIVE: Ms. Sauceda is maintaining sinus rhythm. She has remained on the ventilator. OBJECTIVE: LUNGS: Clear. CARDIAC: Normal S1 and S2, paced on aspirin and apixaban. ASSESSMENT: Paroxysmal atrial fibrillation, maintaining sinus rhythm, no change.
--- NOTE | 2018-03-15 15:07 | PRG ---
DATE OF SERVICE: 03/15/2018 SUBJECTIVE: Ms. Sauceda is unchanged. She is awake and alert this morning. Her ventilatory support was decreased dramatically. She had no complaints. OBJECTIVE: VITAL SIGNS: Heart rate is in the 80s, blood pressure 103/50, respiratory rate 17, oximetry is 93. LUNGS: Clear. HEART: Regular rhythm. ABDOMEN: Soft. EXTREMITIES: With stasis changes. Cultures have been reviewed again and are negative. IMPRESSION: 1. Acute on chronic respiratory failure, back on mechanical ventilation. 2. History of atrial fibrillation, paroxysmal, now in sinus rhythm. 3. Deconditioning and weakness. PLAN: Continue ventilatory support, decreasing support. Prognosis is guarded for long-term survival given that she is 5 feet, 4, 450 pounds with a BMI of 77.
--- NOTE | 2018-03-15 15:50 | PDOC.PN ---
- Subjective Encounter Start Date: 03/15/18 Encounter Start Time: 13:00 Subjective: awake on vent - Objective Resuscitation Status: Resuscitation Status FULL:Full Resuscitation MAR Reviewed: Yes Vital Signs & Weight: Vital Signs (12 hours) Temp Pulse Resp BP Pulse Ox 03/15/18 14:07 80 17 93 L 03/15/18 10:46 84 103/50 L 03/15/18 07:25 83 101/50 L 03/15/18 06:00 15 03/15/18 04:00 97.2 F L 16 Weight Admit Weight 600 lb Weight 450 lb 6.47 oz Most Recent Monitor Data Heart Rate from ECG 81 NIBP 120/62 NIBP BP-Mean 73 Respiration from ECG 23 SpO2 95 I&O: 03/14/18 03/15/18 03/16/18 06:59 06:59 06:59 Intake Total 775 1426 Output Total 1095 1170 Balance -320 256 Result Diagrams: 03/15/18 04:00 03/15/18 04:00 Phys Exam - Physical Examination HEENT: PERRLA, moist MMs Neck: no JVD, supple Respiratory: no wheezing, no rales Cardiovascular: RRR, no significant murmur Gastrointestinal: soft, non-tender, positive bowel sounds abd wall edema+ Musculoskeletal: pulses present, edema present Neurological: non-focal, moves all 4 limbs Dx/Plan (1) Acute and chronic respiratory failure Code(s): J96.20 - ACUTE AND CHR RESP FAILURE, UNSP W HYPOXIA OR HYPERCAPNIA Status: Acute Qualifiers: Respiratory failure complication: hypercapnia Qualified Code(s): J96.22 - Acute and chronic respiratory failure with hypercapnia (2) CAROL (obstructive sleep apnea) Code(s): G47.33 - OBSTRUCTIVE SLEEP APNEA (ADULT) (PEDIATRIC) Status: Chronic (3) Afib Code(s): I48.91 - UNSPECIFIED ATRIAL FIBRILLATION Status: Chronic Qualifiers: Atrial fibrillation type: paroxysmal Qualified Code(s): I48.0 - Paroxysmal atrial fibrillation (4) Acute on chronic diastolic (congestive) heart failure Code(s): I50.33 - ACUTE ON CHRONIC DIASTOLIC (CONGESTIVE) HEART FAILURE Status : Chronic (5) Morbid obesity with BMI of 70 and over, adult Code(s): E66.01 - MORBID (SEVERE) OBESITY DUE TO EXCESS CALORIES; Z68.45 - BODY MASS INDEX (BMI) 70 OR GREATER, ADULT Status: Chronic (6) Pickwickian syndrome Code(s): E66.2 - MORBID (SEVERE) OBESITY WITH ALVEOLAR HYPOVENTILATION Status : Chronic (7) Status post tracheostomy Code(s): Z93.0 - TRACHEOSTOMY STATUS Status: Acute Comment: done on 03/09/18 (8) S/P percutaneous endoscopic gastrostomy (PEG) tube placement Code(s): Z93.1 - GASTROSTOMY STATUS Status: Acute Comment: done on 03/09/18 - Plan will start lasix drip at low dose, d/w , has slowly growing anasarca -: is on diamox iv as well, closely monitor for severe alkalosis -: off and on bipap (mostly has been on it) -: on amiodaron, eliquis, asp. -: Prognosis guarded. Pt has no insurance or ssn, dc will be to home * . Review of Systems - Medications/Allergies Allergies/Adverse Reactions: Allergies Allergy/AdvReac Type Severity Reaction Status Date / Time No Known Drug Allergies Allergy Verified 03/08/18 14:16 Medications: Current Medications Acetaminophen (Tylenol Elixir) 1,000 mg PER TUBE Q6H PRN PRN Reason: Headache/Fever or Pain Last Admin: 03/11/18 08:33 Dose: 1,000 mg Acetazolamide Sodium (Diamox) 250 mg IVP Q12HR COUNTS INCLUDE 234 BEDS AT THE [facility] Last Admin: 03/15/18 08:33 Dose: 250 mg Albuterol/Ipratropium (Duoneb) 3 ml NEB [id number] [facility] Last Admin: 03/15/18 14:07 Dose: 3 ml Amiodarone HCl (Cordarone) 400 mg PO BID COUNTS INCLUDE 234 BEDS AT THE [facility] Last Admin: 03/15/18 08:33 Dose: 400 mg Lipase/Protease/Amylase ([place] [id number]) 1 cap FS .PER PROTOCOL PRN PRN Reason: TUBE OCCLUSION PROTOCOL Apixaban (Eliquis) 5 mg PO BID COUNTS INCLUDE 234 BEDS AT THE [facility] Last Admin: 03/15/18 08:33 Dose: 5 mg Aspirin (Aspirin Chewable) 81 mg PO DAILY COUNTS INCLUDE 234 BEDS AT THE [facility] Last Admin: 03/15/18 08:33 Dose: 81 mg Clonidine (Catapres) 0.1 mg PO Q4H PRN PRN Reason: Systolic BP > 180 Last Admin: 03/10/18 18:11 Dose: 0.1 mg Hydralazine HCl (Apresoline) 10 mg SLOW IVP Q4H PRN PRN Reason: Systolic BP > 180 Last Admin: 03/14/18 17:06 Dose: 10 mg Potassium Chloride 40 meq/ (Sodium Chloride) 270 mls @ 135 mls/hr IVPB ASDIR PRN PRN Reason: FOR SERUM K+ 2.5 - 3.5 Last Admin: 02/28/18 06:18 Dose: 270 mls Potassium Chloride 40 meq/ (Device) 100 mls @ 50 mls/hr IVPB ASDIR PRN PRN Reason: FOR SERUM K+ 2.5 - 3.5 Magnesium Sulfate 1 gm/ Sodium (Chloride) 102 mls @ 102 mls/hr IV PRN PRN PRN Reason: MAG LEVEL 1.4 - 2.0 Magnesium Sulfate 2 gm/ Device 100 mls @ 100 mls/hr IVPB ASDIR PRN PRN Reason: MAGNESIUM < 1.4 Potassium Phosphate 9 mmol/ (Sodium Chloride) 103 mls @ 25.75 mls/hr IVPB ASDIR PRN PRN Reason: Phosphate 1.0-1.8 Potassium Phosphate 12 mmol/ (Sodium Chloride) 254 mls @ 63.5 mls/hr IV ASDIR PRN PRN Reason: Serum phosphate 0.5-0.9 Potassium Phosphate 15 mmol/ (Sodium Chloride) 255 mls @ 63.75 mls/hr IV ASDIR PRN PRN Reason: Serum Phos < 0.5 Losartan Potassium (Cozaar) 25 mg PO DAILY [facility] Magnesium Oxide (Magnesium Oxide) 400 mg PO BIDPRN PRN PRN Reason: FOR SERUM MAG 1.4 - 2.0 Magnesium Oxide (Magnesium Oxide) 800 mg PO PRN PRN PRN Reason: FOR SERUM MAG < 1.4 Miscellaneous Medication (Phos-Nak) 1 pkt PO TIDPRN PRN PRN Reason: FOR PHOS LEVEL 1.0 - 1.8 Miscellaneous Medication (Phos-Nak) 2 pkt PO TIDPRN PRN PRN Reason: FOR PHOS LEVEL 0.5 - 1.0 Morphine Sulfate (Morphine) 4 mg SLOW IVP Q30MIN PRN PRN Reason: Pain Last Admin: 03/14/18 03:35 Dose: 4 mg Ondansetron HCl (Zofran Odt) 4 mg PO Q6H PRN PRN Reason: Nausea/Vomiting Ondansetron HCl (Zofran) 4 mg IVP Q6H PRN PRN Reason: Nausea/Vomiting Pantoprazole Sodium (Protonix) 40 mg PER TUBE DAILY [facility] Last Admin: 03/15/18 08:33 Dose: 40 mg Potassium Chloride (K-Dur) 40 meq PO ASDIR PRN PRN Reason: FOR SERUM K+ 2.5 - 3.5 Last Admin: 03/04/18 06:43 Dose: 40 meq Potassium Chloride (Klor-Con) 40 meq PER TUBE ASDIR PRN PRN Reason: FOR SERUM K+ 2.5-3.5 Last Admin: 03/09/18 06:22 Dose: 40 meq Sodium Bicarbonate (Bicarbonate, Sodium) 650 mg PER TUBE .PER PROTOCOL PRN PRN Reason: ENTERAL TUBE OCCLUSION Sodium Chloride (Flush - Normal Saline) 10 ml IVF Q12HR [facility] Last Admin: 03/15/18 08:34 Dose: 10 ml Sodium Chloride (Flush - Normal Saline) 10 ml IVF PRN PRN PRN Reason: Saline Flush Last Admin: 03/14/18 08:28 Dose: 10 ml
[2018-03-15] MEDS ORDERED: Furosemide 100 MG in Sodium Chloride 0.9% 100 ML IVPB SCH (16:00)
[2018-03-16 05:08] LABS: #Eosinphils 0.3 thou/uL (0.0-0.7); #Lymphocytes 0.8 thou/uL (1.20-3.40); #Monocytes 0.6 thou/uL (0.11-0.59); #Neutrophils 3.1 thou/uL (1.40-6.50); %Basophils 0.6 % (0.0-1.0); %Eosinophils 5.6 % (0.0-10.0); %Lymphocytes 17.2 % (21.0-51.0); %Monocytes 12.1 % (0.0-10.0); %Neutrophils 64.5 % (42.0-75.0); Hemoglobin 10.7 g/dL (12.0-16.0); Mean Corpuscular HGB CONC 29.3 g/dL (32.0-36.0); Mean Corpuscular Hemoglobin 24.6 pg (27.0-31.0); Mean Corpuscular Volume 84.1 fl (81.0-99.0); Mean Platelet Volume 9.8 fL (7.4-10.4); Platelet Count 130 thou/uL (130-400); RBC Distribution Width 20.1 % (11.5-14.5); Red Blood Cell (RBC) Count 4.36 mill/uL (4.20-5.40); White Blood Cell (WBC) Count 4.9 thou/uL (4.8-10.8)
[2018-03-16 05:16] LABS: Anion Gap 9 mmol/L (10-20); BUN (Urea Nitrogen) 47 mg/dL (9.8-20.1); Calc. Creatinine Clearance 209 mL/min (70-130); Calcium 9.1 mg/dL (7.8-10.44); Carbon Dioxide 36 mmol/L (23-31); Chloride 99 mmol/L (98-107); Estimated GFR-MDRD 63; Glucose 90 mg/dL (80-115); Potassium 4.1 mmol/L (3.5-5.1); Sodium 140 mmol/L (136-145)
--- NOTE | 2018-03-16 08:10 | PRG ---
DATE OF SERVICE: 03/16/2018 A 35 minutes critical care time. SUBJECTIVE: The patient remains on mechanical ventilation through tracheostomy. Apparently, she kathy led weaning on Friday and has been kept on the ventilator since and noticed that she is on a Lasix drip. PHYSICAL EXAMINATION: VITAL SIGNS: Her temperature is 98.6, pulse 80, blood pressure 131/55. A 24-hour intake 1820, outpu t 204. HEENT: Unremarkable. NECK: Trach in good position. LUNGS: Coarse breath sounds bilaterally. CARDIOVASCULAR: S1, S2 regular. ABDOMEN: Soft. EXTREMITIES: Brawny edema. LABORATORY DATA: Sodium 140, potassium 4.1, chloride 99, CO2 36, BUN 47, creatinine 0.9, glucose 90. White blood cell count 4.9, hematocrit 36.6, platelet count 130. ASSESSMENT: 1. Obesity hypoventilation syndrome. 2. Status post tracheostomy. 3. Morbid obesity. 4. Paroxysmal atrial fibrillation. 5. Prerenal azotemia. PLAN: 1. I will go ahead and hold her Lasix and Diamox for the next day or two as her BUN is becoming princess sly elevated. 2. Continue mechanical ventilation with further attempts at weaning probably by tomorrow. 3. Enteral tube feeds.
[2018-03-16] MEDS: Amiodarone 200 MG TAB PO SCH (08:50)
[2018-03-16] MEDS: Losartan 25 MG TAB PO SCH (08:50)
[2018-03-16] MEDS: Pantoprazole 40 MG GRANULES PACKET PER TUBE SCH (08:51)
[2018-03-16] MEDS: Apixaban 5 MG TAB PO SCH ×2 (08:53→21:44)
--- NOTE | 2018-03-16 16:04 | PDOC.CTH ---
Cardiology Progress Note - Subjective No new issues. Remains in sinus rhythm. - Objective Vital Signs Temp Pulse Pulse Pulse Resp BP BP 03/16/18 14:42 69 03/16/18 14:00 19 03/16/18 13:13 68 134/58 L 03/16/18 12:20 77 80 117/63 03/16/18 12:00 97.9 F 28 H 03/16/18 10:47 79 03/16/18 10:00 26 H 03/16/18 08:00 19 03/16/18 07:25 98.6 F 85 20 03/16/18 07:00 98.6 F 03/16/18 06:42 80 131/54 L 03/16/18 06:39 86 19 03/16/18 06:00 23 H 03/16/18 04:03 80 BP Pulse Ox Pulse Ox Pulse Ox 03/16/18 14:42 03/16/18 14:00 03/16/18 13:13 03/16/18 12:20 125/60 90 L 91 L 03/16/18 12:00 03/16/18 10:47 03/16/18 10:00 03/16/18 08:00 03/16/18 07:25 93 L 03/16/18 07:00 03/16/18 06:42 03/16/18 06:39 90 L 03/16/18 06:00 03/16/18 04:03 Admit Weight 600 lb Weight 450 lb 6.47 oz 03/15/18 03/16/18 03/17/18 06:59 06:59 06:59 Intake Total 1426 1820.1 60 Output Total 1170 2040 560 Balance 256 -219.9 -500 - Physical Examination General/Neuro: NAD Neck: no JVD present Lungs: unlabored respirations Heart: RRR Abdomen: NT/ND Extremities: + edema B (2+) - Telemetry Telemetry Rhythm: NSR - Labs Result Diagrams: 03/16/18 04:44 03/16/18 04:44 Troponin/CKMB CK-MB (CK-2) 2.9 ng/mL (0-6.6) 02/26/18 01:05 Troponin I 0.180 ng/mL (< 0.028) H 02/26/18 06:57 - Assessment/Plan 1. Acute hypoxic hypercapnic respiratory insufficiency 2. Acute on chronic RV dysfunction. 3. Acute on chronic diastolic heart failure, improved. 4. Morbid obesity, BMI 103 5. Pickwickian syndrome 6. Afib RVR, in sinus now. PLAN: - Eliquis 5 mg BID. - Amiodarone to 200 mg daily, maintenance dose. - Placement.
--- NOTE | 2018-03-16 16:57 | PDOC.PN ---
- Subjective Encounter Start Date: 03/16/18 Encounter Start Time: 12:15 Subjective: awake, not fully oriented -: is severely deconditioned, unable to lift her LE/bend her knees well -: on vent - Objective Resuscitation Status: Resuscitation Status FULL:Full Resuscitation MAR Reviewed: Yes Vital Signs & Weight: Vital Signs (12 hours) Temp Pulse Pulse Pulse Resp BP BP 03/16/18 16:00 98.8 F 18 03/16/18 14:42 69 03/16/18 14:00 19 03/16/18 13:13 68 134/58 L 03/16/18 12:20 77 80 117/63 03/16/18 12:00 97.9 F 28 H 03/16/18 10:47 79 03/16/18 10:00 26 H 03/16/18 08:00 19 03/16/18 07:25 98.6 F 85 20 03/16/18 07:00 98.6 F 03/16/18 06:42 80 131/54 L 03/16/18 06:39 86 19 03/16/18 06:00 23 H BP Pulse Ox Pulse Ox Pulse Ox 03/16/18 16:00 03/16/18 14:42 03/16/18 14:00 03/16/18 13:13 03/16/18 12:20 125/60 90 L 91 L 03/16/18 12:00 03/16/18 10:47 03/16/18 10:00 03/16/18 08:00 03/16/18 07:25 93 L 03/16/18 07:00 03/16/18 06:42 03/16/18 06:39 90 L 03/16/18 06:00 Weight Admit Weight 600 lb Weight 450 lb 6.47 oz Most Recent Monitor Data Heart Rate from ECG 64 NIBP 144/77 NIBP BP-Mean 95 Respiration from ECG 21 SpO2 94 I&O: 03/15/18 03/16/18 03/17/18 06:59 06:59 06:59 Intake Total 1426 1820.1 90 Output Total 1170 2040 610 Balance 256 -219.9 -520 Result Diagrams: 03/16/18 04:44 03/16/18 04:44 Phys Exam - Physical Examination HEENT: PERRLA, moist MMs Neck: no JVD trach+ Respiratory: no wheezing, no rales Cardiovascular: RRR, no significant murmur Gastrointestinal: soft, non-tender, positive bowel sounds Musculoskeletal: pulses present, edema present Neurological: non-focal, moves all 4 limbs Dx/Plan (1) Acute and chronic respiratory failure Code(s): J96.20 - ACUTE AND CHR RESP FAILURE, UNSP W HYPOXIA OR HYPERCAPNIA Status: Acute Qualifiers: Respiratory failure complication: hypercapnia Qualified Code(s): J96.22 - Acute and chronic respiratory failure with hypercapnia (2) CAROL (obstructive sleep apnea) Code(s): G47.33 - OBSTRUCTIVE SLEEP APNEA (ADULT) (PEDIATRIC) Status: Chronic (3) Afib Code(s): I48.91 - UNSPECIFIED ATRIAL FIBRILLATION Status: Chronic Qualifiers: Atrial fibrillation type: paroxysmal Qualified Code(s): I48.0 - Paroxysmal atrial fibrillation (4) Acute on chronic diastolic (congestive) heart failure Code(s): I50.33 - ACUTE ON CHRONIC DIASTOLIC (CONGESTIVE) HEART FAILURE Status : Chronic (5) Morbid obesity with BMI of 70 and over, adult Code(s): E66.01 - MORBID (SEVERE) OBESITY DUE TO EXCESS CALORIES; Z68.45 - BODY MASS INDEX (BMI) 70 OR GREATER, ADULT Status: Chronic (6) Pickwickian syndrome Code(s): E66.2 - MORBID (SEVERE) OBESITY WITH ALVEOLAR HYPOVENTILATION Status : Chronic (7) Status post tracheostomy Code(s): Z93.0 - TRACHEOSTOMY STATUS Status: Acute Comment: done on 03/09/18 (8) S/P percutaneous endoscopic gastrostomy (PEG) tube placement Code(s): Z93.1 - GASTROSTOMY STATUS Status: Acute Comment: done on 03/09/18 - Plan is unable to come off vent -: on trach, weaning as tolerated -: PT to work on bed -: is off lasix drip due to increasing bun, edema has decreased a bit -: prognosis guarded with life threatening obesity and current deconditioning * . Continue amiodarone, eliquis for afib, asp, cozaar, nebs. Serum hco3 around 36 this am, bun 47. Review of Systems - Medications/Allergies Allergies/Adverse Reactions: Allergies Allergy/AdvReac Type Severity Reaction Status Date / Time No Known Drug Allergies Allergy Verified 03/08/18 14:16 Medications: Current Medications Acetaminophen (Tylenol Elixir) 1,000 mg PER TUBE Q6H PRN PRN Reason: Headache/Fever or Pain Last Admin: 03/11/18 08:33 Dose: 1,000 mg Albuterol/Ipratropium (Duoneb) 3 ml NEB [id number] [facility] Last Admin: 03/16/18 13:12 Dose: 3 ml Amiodarone HCl (Cordarone) 200 mg PO DAILY [facility] Lipase/Protease/Amylase ([place] [id number]) 1 cap FS .PER PROTOCOL PRN PRN Reason: TUBE OCCLUSION PROTOCOL Apixaban (Eliquis) 5 mg PO BID [facility] Last Admin: 03/16/18 08:53 Dose: 5 mg Aspirin (Aspirin Chewable) 81 mg PO DAILY [facility] Last Admin: 03/16/18 08:50 Dose: 81 mg Clonidine (Catapres) 0.1 mg PO Q4H PRN PRN Reason: Systolic BP > 180 Last Admin: 03/10/18 18:11 Dose: 0.1 mg Hydralazine HCl (Apresoline) 10 mg SLOW IVP Q4H PRN PRN Reason: Systolic BP > 180 Last Admin: 03/14/18 17:06 Dose: 10 mg Potassium Chloride 40 meq/ (Sodium Chloride) 270 mls @ 135 mls/hr IVPB ASDIR PRN PRN Reason: FOR SERUM K+ 2.5 - 3.5 Last Admin: 02/28/18 06:18 Dose: 270 mls Potassium Chloride 40 meq/ (Device) 100 mls @ 50 mls/hr IVPB ASDIR PRN PRN Reason: FOR SERUM K+ 2.5 - 3.5 Magnesium Sulfate 1 gm/ Sodium (Chloride) 102 mls @ 102 mls/hr IV PRN PRN PRN Reason: MAG LEVEL 1.4 - 2.0 Magnesium Sulfate 2 gm/ Device 100 mls @ 100 mls/hr IVPB ASDIR PRN PRN Reason: MAGNESIUM < 1.4 Potassium Phosphate 9 mmol/ (Sodium Chloride) 103 mls @ 25.75 mls/hr IVPB ASDIR PRN PRN Reason: Phosphate 1.0-1.8 Potassium Phosphate 12 mmol/ (Sodium Chloride) 254 mls @ 63.5 mls/hr IV ASDIR PRN PRN Reason: Serum phosphate 0.5-0.9 Potassium Phosphate 15 mmol/ (Sodium Chloride) 255 mls @ 63.75 mls/hr IV ASDIR PRN PRN Reason: Serum Phos < 0.5 Losartan Potassium (Cozaar) 25 mg PO DAILY [facility] Last Admin: 03/16/18 08:50 Dose: 25 mg Magnesium Oxide (Magnesium Oxide) 400 mg PO BIDPRN PRN PRN Reason: FOR SERUM MAG 1.4 - 2.0 Magnesium Oxide (Magnesium Oxide) 800 mg PO PRN PRN PRN Reason: FOR SERUM MAG < 1.4 Miscellaneous Medication (Phos-Nak) 1 pkt PO TIDPRN PRN PRN Reason: FOR PHOS LEVEL 1.0 - 1.8 Miscellaneous Medication (Phos-Nak) 2 pkt PO TIDPRN PRN PRN Reason: FOR PHOS LEVEL 0.5 - 1.0 Morphine Sulfate (Morphine) 4 mg SLOW IVP Q30MIN PRN PRN Reason: Pain Last Admin: 03/14/18 03:35 Dose: 4 mg Ondansetron HCl (Zofran Odt) 4 mg PO Q6H PRN PRN Reason: Nausea/Vomiting Ondansetron HCl (Zofran) 4 mg IVP Q6H PRN PRN Reason: Nausea/Vomiting Pantoprazole Sodium (Protonix) 40 mg PER TUBE DAILY [facility] Last Admin: 03/16/18 08:51 Dose: 40 mg Potassium Chloride (K-Dur) 40 meq PO ASDIR PRN PRN Reason: FOR SERUM K+ 2.5 - 3.5 Last Admin: 03/04/18 06:43 Dose: 40 meq Potassium Chloride (Klor-Con) 40 meq PER TUBE ASDIR PRN PRN Reason: FOR SERUM K+ 2.5-3.5 Last Admin: 03/09/18 06:22 Dose: 40 meq Sodium Bicarbonate (Bicarbonate, Sodium) 650 mg PER TUBE .PER PROTOCOL PRN PRN Reason: ENTERAL TUBE OCCLUSION Sodium Chloride (Flush - Normal Saline) 10 ml IVF Q12HR [facility] Last Admin: 03/16/18 08:51 Dose: 10 ml Sodium Chloride (Flush - Normal Saline) 10 ml IVF PRN PRN PRN Reason: Saline Flush Last Admin: 03/14/18 08:28 Dose: 10 ml
--- NOTE | 2018-03-16 17:16 | CON ---
DATE OF CONSULTATION: 03/16/2018 CONSULTING PHYSICIAN: Dr. Starr. REASON FOR CONSULTATION: Electrolyte management with Lasix drip. REASON FOR ADMISSION: Shortness of breath. HISTORY OF PRESENT ILLNESS: This is a 62-year-old white female with history of morbid obesity, obstr uctive sleep apnea, heart failure, who came to the hospital with shortness of breath. The patient reardon s been in the hospital for a long time since 02/26/2018, almost for 3 weeks and the patient was havin g edema and plan to start on Lasix drip and Nephrology is consulted for electrolyte management and mo nitoring of renal function while on Lasix drip, but apparently her Lasix was stopped by critical care physician this morning and the patient is feeling better. She is not able to give good history, bec ause of the trach. The patient is not having an insurance to have placement done. PAST MEDICAL HISTORY: Positive for morbid obesity, obstructive sleep apnea, respiratory failure, chr onic kidney disease. PAST SURGICAL HISTORY: Tracheostomy. SOCIAL HISTORY: No smoking, alcohol or illicit drug abuse. FAMILY HISTORY: No history of kidney disease. HOME MEDICATIONS: Not known. ALLERGIES: No known drug allergies. REVIEW OF SYSTEMS: The following complete review of systems was negative, unless otherwise mentioned in the HPI or below: Constitutional: Weight loss or gain, ability to conduct usual activities. Skin: Rash, itching. Eyes: Double vision, pain. ENT/Mouth: Nose bleeding, neck stiffness, pain, tenderness. Cardiovascular: Palpitations, dyspnea on exertion, orthopnea. Respiratory: Shortness of breath, wheezing, cough, hemoptysis, fever or night sweats. Gastrointestinal: Poor appetite, abdominal pain, heartburn, nausea, vomiting, constipation, or diarr hea. Genitourinary: Urgency, frequency, dysuria, nocturia. Musculoskeletal: Pain, swelling. Neurologic/Psychiatric: Anxiety, depression. Allergy/Immunologic: Skin rash, bleeding tendency. PHYSICAL EXAMINATION: GENERAL: This is a morbidly obese female in no apparent distress. VITAL SIGNS: Temperature 98.6, pulse 79, respiratory 19, blood pressure 118/55. HEENT: Atraumatic, normocephalic. NECK: Trach present. CHEST: Clear. GASTROINTESTINAL: Abdomen is soft. Obese. MUSCULOSKELETAL: 2+ edema. DERMATOLOGIC: Chronic skin lesions with blisters in the lower extremities. NEUROLOGIC: Alert, awake. Moving all the extremities. PSYCHIATRIC: Depressed. LABORATORY DATA: Potassium 4.1, BUN 47, creatinine 0.9, BUN on admission was 18. ASSESSMENT AND PLAN: 1. Volume overload, was on Lasix drip, currently on hold. We will monitor. 2. Electrolytes. Electrolytes are balanced now, potassium. Monitor magnesium. Renal function is s table. BUN is going up. 3. Morbid obesity. 4. Hypertension, stable. 5. Edema as above. 6. We will monitor renal function. Thank you for the consult.
[2018-03-17 04:54] LABS: #Eosinphils 0.3 thou/uL (0.0-0.7); #Lymphocytes 0.6 thou/uL (1.20-3.40); #Monocytes 0.6 thou/uL (0.11-0.59); #Neutrophils 2.8 thou/uL (1.40-6.50); %Basophils 0.6 % (0.0-1.0); %Eosinophils 6.7 % (0.0-10.0); %Lymphocytes 13.8 % (21.0-51.0); %Monocytes 13.4 % (0.0-10.0); %Neutrophils 65.6 % (42.0-75.0); Mean Corpuscular HGB CONC 29.2 g/dL (32.0-36.0); Mean Corpuscular Hemoglobin 24.5 pg (27.0-31.0); Mean Corpuscular Volume 83.8 fl (81.0-99.0); Mean Platelet Volume 9.4 fL (7.4-10.4); Platelet Count 141 thou/uL (130-400); RBC Distribution Width 20.1 % (11.5-14.5); Red Blood Cell (RBC) Count 4.49 mill/uL (4.20-5.40); White Blood Cell (WBC) Count 4.3 thou/uL (4.8-10.8)
[2018-03-17 05:15] LABS: Anion Gap 11 mmol/L (10-20); BUN (Urea Nitrogen) 46 mg/dL (9.8-20.1); Calc. Creatinine Clearance 227 mL/min (70-130); Calcium 9.4 mg/dL (7.8-10.44); Carbon Dioxide 35 mmol/L (23-31); Chloride 100 mmol/L (98-107); Estimated GFR-MDRD 69; Glucose 90 mg/dL (80-115); Potassium 4.2 mmol/L (3.5-5.1); Sodium 142 mmol/L (136-145)
--- NOTE | 2018-03-17 08:21 | PRG ---
DATE OF SERVICE: 03/17/2018 The patient is doing well, had no complaints. PHYSICAL EXAMINATION: VITAL SIGNS: Temperature is 97.2, pulse 81, blood pressure 106/59, 24 intake 1044, output 1835. HEENT: Unremarkable. Trach in good position. LUNGS: Coarse breath sounds. CARDIAC: S1 and S2 regular. ABDOMEN: Obese, soft, nontender. EXTREMITIES: Brawny edema. LABORATORY DATA: White blood cell count 4.3, hematocrit 37.6, platelet count 141. Sodium 142, potas sium 4.2, chloride 100, CO2 35, BUN 46, creatinine 0.8, glucose 90. ASSESSMENT: 1. Obesity hypoventilation syndrome. 2. Status post tracheostomy. 3. Morbid obesity. 4. Paroxysmal atrial fibrillation. 5. Prerenal azotemia. PLAN: 1. Continue to hold her diuretics for the time being. 2. Go back to trach collar trials. 3. Discontinue daily CBCs, but continue monitoring of her electrolytes.
[2018-03-17] MEDS: Apixaban 5 MG TAB PO SCH ×2 (09:52→20:02)
[2018-03-17] MEDS: Losartan 25 MG TAB PO SCH (09:52)
[2018-03-17] MEDS: Amiodarone 200 MG TAB PO SCH (09:52)
[2018-03-17] MEDS: Pantoprazole 40 MG GRANULES PACKET PER TUBE SCH (09:53)
--- NOTE | 2018-03-17 10:01 | PRG ---
Patient Name: ROSMERY HINTON Date of service: 03/17/2018 Subjective: Patient was seen and examined at bedside and overnight events noted. Patient denies any shortness of breath or chest pain or palpitation. No history of nausea or vomiting or diarrhea or fever or chills or cramps. Objective: General: This is a morbidly obese female seen in ICU. Vital signs: Temperature 97.2, pulse 80, respiratory rate 18, blood pressure 96 /45. HEENT: Atraumatic, normocephalic. Oral mucosa is moist. Neck: Trach present. Cardiovascular: S1 S2 heard. Rate and rhythm regular. Respiratory: Clear to auscultation. Gastrointestinal: Abdomen is soft. Musculoskeletal: No tenderness. No edema. Dermatologic: No skin rash. Neurologic: Alert and awake and oriented X3. No focal neurologic deficits. Moving all the extremities. Psychiatric: Mood and affect normal. LABORATORY DATA: Potassium is 4.2, BUN 46, creatinine 0.8. ASSESSMENT AND PLAN: 1. Volume overload. Lasix and diuretics on hold, monitor electrolytes. 2. Morbid obesity. 3. Hypertension. 4. Edema, as above. We will sign off. Currently Lasix is on hold. Renal function is stable. Please call back with any questions. MTDD
--- NOTE | 2018-03-17 10:47 | PDOC.CTH ---
Cardiology Progress Note - Subjective No new issues or complaints. - Objective Vital Signs Temp Pulse Resp BP Pulse Ox 03/17/18 09:32 91 L 03/17/18 08:00 97.2 F L 80 25 H 95 03/17/18 07:35 81 106/59 L 03/17/18 07:33 83 20 91 L 03/17/18 07:00 97.2 F L 03/17/18 06:00 21 H 03/17/18 04:00 98.5 F 23 H 03/17/18 02:39 78 03/17/18 02:00 15 03/17/18 01:44 71 120/58 L 03/17/18 00:00 98.8 F 23 H Admit Weight 600 lb Weight 450 lb 6.47 oz 03/16/18 03/17/18 03/18/18 06:59 06:59 06:59 Intake Total 1820.1 1044.8 60 Output Total 2040 1835 240 Balance -219.9 -790.2 -180 - Physical Examination General/Neuro: NAD Neck: no JVD present Lungs: unlabored respirations Heart: RRR Abdomen: NT/ND Extremities: + edema B (2+ chronic) - Telemetry Telemetry Rhythm: NSR - Labs Result Diagrams: 03/17/18 04:10 03/17/18 04:10 Troponin/CKMB CK-MB (CK-2) 2.9 ng/mL (0-6.6) 02/26/18 01:05 Troponin I 0.180 ng/mL (< 0.028) H 02/26/18 06:57 - Assessment/Plan 1. Acute hypoxic hypercapnic respiratory insufficiency 2. Acute on chronic RV dysfunction. 3. Acute on chronic diastolic heart failure, improved. 4. Morbid obesity, BMI 103 5. Pickwickian syndrome 6. Afib RVR, in sinus now. PLAN: - Eliquis 5 mg BID. - Amiodarone to 200 mg daily, maintenance dose. - Placement.
[2018-03-18 06:02] LABS: Anion Gap 11 mmol/L (10-20); BUN (Urea Nitrogen) 45 mg/dL (9.8-20.1); Calc. Creatinine Clearance 238 mL/min (70-130); Calcium 9.4 mg/dL (7.8-10.44); Carbon Dioxide 35 mmol/L (23-31); Chloride 101 mmol/L (98-107); Estimated GFR-MDRD 73; Glucose 98 mg/dL (80-115); Potassium 3.9 mmol/L (3.5-5.1); Sodium 143 mmol/L (136-145)
--- NOTE | 2018-03-18 08:02 | PRG ---
DATE OF SERVICE" 03/18/2018 The patient is currently sleeping on mechanical ventilation. PHYSICAL EXAMINATION: VITAL SIGNS: Temperature 98.9, pulse 84, blood pressure 122/56. 24 hour intake 825, output 1815. HEENT: Unremarkable. NECK: Trach in good position. LUNGS: Distant, but clear breath sounds. CARDIAC: S1 and S2 regular. ABDOMEN: Soft, nontender. EXTREMITIES: Edematous. LABORATORY: Sodium 143, potassium 3.9, chloride 101, CO2 35, BUN 45, creatinine 0.8, glucose 98. ASSESSMENT: Status unchanged. She has severe obesity hypoventilation syndrome which has required tr acheostomy and at the very least nocturnal mechanical ventilation. I think long-term she is probably going to need some type of nighttime ventilatory support. PLAN: 1. Funding is an issue with this patient. I am not sure we can make any inroads until she has some type of insurance so that we can place her and perhaps get nighttime mechanical ventilation. 2. She is continuing amiodarone for paroxysmal atrial fibrillation and Eliquis for prophylaxis again st stroke. We will continue to try her off the ventilator during the daytime. 3. Will try to discuss the situation with case management.
[2018-03-18] MEDS: Morphine 4 MG/ML VIAL SLOW IVP PRN (08:12)
[2018-03-18] MEDS: Amiodarone 200 MG TAB PO SCH (08:37)
[2018-03-18] MEDS: Apixaban 5 MG TAB PO SCH ×2 (08:37→20:20)
[2018-03-18] MEDS: Losartan 25 MG TAB PO SCH (08:37)
[2018-03-18] MEDS: Pantoprazole 40 MG GRANULES PACKET PER TUBE SCH (08:38)
[2018-03-18] MEDS ORDERED: Furosemide 40 MG/4 ML VIAL SLOW IVP SCH (09:00)
--- NOTE | 2018-03-18 09:43 | PDOC.PN ---
- Subjective Encounter Start Date: 03/17/18 Encounter Start Time: 15:00 -: non-verbal Chriss is seen today, alert and on Trach with mecahnical ventilation. Persistent edema is noted. - Objective Resuscitation Status: Resuscitation Status FULL:Full Resuscitation MAR Reviewed: Yes Vital Signs & Weight: Vital Signs (12 hours) Temp Pulse Resp Pulse Ox 03/18/18 07:47 90 L 03/18/18 07:44 84 23 H 90 L 03/18/18 07:24 98.9 F 73 24 H 91 L 03/18/18 07:00 98.9 F 03/18/18 06:00 21 H 03/18/18 04:00 98.0 F 21 H 03/18/18 02:00 19 03/18/18 00:00 98.0 F 21 H 03/17/18 23:18 79 26 H 93 L 03/17/18 22:00 21 H Weight Admit Weight 600 lb Weight 450 lb 6.47 oz Most Recent Monitor Data Heart Rate from ECG 79 NIBP 124/77 NIBP BP-Mean 91 Respiration from ECG 31 SpO2 89 I&O: 03/17/18 03/18/18 03/19/18 06:59 06:59 06:59 Intake Total 1044.8 852 30 Output Total 1835 1815 175 Balance -790.2 -963 -145 Result Diagrams: 03/17/18 04:10 03/18/18 05:32 Radiology Reviewed by me: Yes Phys Exam - Physical Examination HEENT: PERRLA Neck: no nodes, supple Respiratory: no wheezing, no rales Cardiovascular: RRR, no significant murmur Gastrointestinal: soft, non-tender Musculoskeletal: edema present Neurological: moves all 4 limbs Lymphatic: no nodes Dx/Plan (1) Acute idiopathic thrombocytopenic purpura Code(s): D69.3 - IMMUNE THROMBOCYTOPENIC PURPURA Status: Resolved Comment: resolved. (2) Acute and chronic respiratory failure Code(s): J96.20 - ACUTE AND CHR RESP FAILURE, UNSP W HYPOXIA OR HYPERCAPNIA Status: Acute Qualifiers: Respiratory failure complication: hypercapnia Qualified Code(s): J96.22 - Acute and chronic respiratory failure with hypercapnia Comment: Pt on Trach with mecanical ventilation per pulmonary. (3) Acute on chronic diastolic (congestive) heart failure Code(s): I50.33 - ACUTE ON CHRONIC DIASTOLIC (CONGESTIVE) HEART FAILURE Status : Chronic Comment: Continue with lasix Diuresis as needed. (4) Hypokalemia Code(s): E87.6 - HYPOKALEMIA Status: Acute Comment: continue electrolyte replacement protocol (5) Morbid obesity with BMI of 70 and over, adult Code(s): E66.01 - MORBID (SEVERE) OBESITY DUE TO EXCESS CALORIES; Z68.45 - BODY MASS INDEX (BMI) 70 OR GREATER, ADULT Status: Chronic (6) Pickwickian syndrome Code(s): E66.2 - MORBID (SEVERE) OBESITY WITH ALVEOLAR HYPOVENTILATION Status : Chronic (7) Pulmonary embolism Code(s): I26.99 - OTHER PULMONARY EMBOLISM WITHOUT ACUTE COR PULMONALE Status : Suspected Comment: continue heparin drip per DVT/PE protocol (8) Afib Code(s): I48.91 - UNSPECIFIED ATRIAL FIBRILLATION Status: Chronic Qualifiers: Atrial fibrillation type: paroxysmal Qualified Code(s): I48.0 - Paroxysmal atrial fibrillation Comment: On Amiodarone per cardiology. Will closley Monitor. Platelets stabel count. - Plan cont current plan of care, PT/OT, aids social worker, 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 - Discharge Day Encounter end time: 15:35 Review of Systems - Review of Systems Other: Pt is Non verbal. - Medications/Allergies Allergies/Adverse Reactions: Allergies Allergy/AdvReac Type Severity Reaction Status Date / Time No Known Drug Allergies Allergy Verified 03/08/18 14:16 Medications: Current Medications Acetaminophen (Tylenol Elixir) 1,000 mg PER TUBE Q6H PRN PRN Reason: Headache/Fever or Pain Last Admin: 03/11/18 08:33 Dose: 1,000 mg Albuterol/Ipratropium (Duoneb) 3 ml NEB [id number] Last Admin: 03/18/18 07:44 Dose: 3 ml Amiodarone HCl (Cordarone) 200 mg PO DAILY [facility] Last Admin: 03/18/18 08:37 Dose: 200 mg Lipase/Protease/Amylase ([place] [id number]) 1 cap FS .PER PROTOCOL PRN PRN Reason: TUBE OCCLUSION PROTOCOL Apixaban (Eliquis) 5 mg PO BID [facility] Last Admin: 03/18/18 08:37 Dose: 5 mg Aspirin (Aspirin Chewable) 81 mg PO DAILY [facility] Last Admin: 03/18/18 08:37 Dose: 81 mg Clonidine (Catapres) 0.1 mg PO Q4H PRN PRN Reason: Systolic BP > 180 Last Admin: 03/10/18 18:11 Dose: 0.1 mg Furosemide (Lasix) 40 mg SLOW IVP NOW [facility] Stop: 03/18/18 11:00 Last Admin: 03/18/18 09:12 Dose: 40 mg Hydralazine HCl (Apresoline) 10 mg SLOW IVP Q4H PRN PRN Reason: Systolic BP > 180 Last Admin: 03/14/18 17:06 Dose: 10 mg Potassium Chloride 40 meq/ (Sodium Chloride) 270 mls @ 135 mls/hr IVPB ASDIR PRN PRN Reason: FOR SERUM K+ 2.5 - 3.5 Last Admin: 02/28/18 06:18 Dose: 270 mls Potassium Chloride 40 meq/ (Device) 100 mls @ 50 mls/hr IVPB ASDIR PRN PRN Reason: FOR SERUM K+ 2.5 - 3.5 Magnesium Sulfate 1 gm/ Sodium (Chloride) 102 mls @ 102 mls/hr IV PRN PRN PRN Reason: MAG LEVEL 1.4 - 2.0 Magnesium Sulfate 2 gm/ Device 100 mls @ 100 mls/hr IVPB ASDIR PRN PRN Reason: MAGNESIUM < 1.4 Potassium Phosphate 9 mmol/ (Sodium Chloride) 103 mls @ 25.75 mls/hr IVPB ASDIR PRN PRN Reason: Phosphate 1.0-1.8 Potassium Phosphate 12 mmol/ (Sodium Chloride) 254 mls @ 63.5 mls/hr IV ASDIR PRN PRN Reason: Serum phosphate 0.5-0.9 Potassium Phosphate 15 mmol/ (Sodium Chloride) 255 mls @ 63.75 mls/hr IV ASDIR PRN PRN Reason: Serum Phos < 0.5 Losartan Potassium (Cozaar) 25 mg PO DAILY [facility] Last Admin: 03/18/18 08:37 Dose: 25 mg Magnesium Oxide (Magnesium Oxide) 400 mg PO BIDPRN PRN PRN Reason: FOR SERUM MAG 1.4 - 2.0 Magnesium Oxide (Magnesium Oxide) 800 mg PO PRN PRN PRN Reason: FOR SERUM MAG < 1.4 Miscellaneous Medication (Phos-Nak) 1 pkt PO TIDPRN PRN PRN Reason: FOR PHOS LEVEL 1.0 - 1.8 Miscellaneous Medication (Phos-Nak) 2 pkt PO TIDPRN PRN PRN Reason: FOR PHOS LEVEL 0.5 - 1.0 Morphine Sulfate (Morphine) 4 mg SLOW IVP Q30MIN PRN PRN Reason: Pain Last Admin: 03/18/18 08:12 Dose: 4 mg Ondansetron HCl (Zofran Odt) 4 mg PO Q6H PRN PRN Reason: Nausea/Vomiting Ondansetron HCl (Zofran) 4 mg IVP Q6H PRN PRN Reason: Nausea/Vomiting Pantoprazole Sodium (Protonix) 40 mg PER TUBE DAILY [facility] Last Admin: 03/18/18 08:38 Dose: 40 mg Potassium Chloride (K-Dur) 40 meq PO ASDIR PRN PRN Reason: FOR SERUM K+ 2.5 - 3.5 Last Admin: 03/04/18 06:43 Dose: 40 meq Potassium Chloride (Klor-Con) 40 meq PER TUBE ASDIR PRN PRN Reason: FOR SERUM K+ 2.5-3.5 Last Admin: 03/09/18 06:22 Dose: 40 meq Sodium Bicarbonate (Bicarbonate, Sodium) 650 mg PER TUBE .PER PROTOCOL PRN PRN Reason: ENTERAL TUBE OCCLUSION Sodium Chloride (Flush - Normal Saline) 10 ml IVF Q12HR [facility] Last Admin: 03/18/18 08:37 Dose: 10 ml Sodium Chloride (Flush - Normal Saline) 10 ml IVF PRN PRN PRN Reason: Saline Flush Last Admin: 03/14/18 08:28 Dose: 10 ml
--- NOTE | 2018-03-18 13:41 | PDOC.PN ---
- Subjective Encounter Start Date: 03/18/18 Encounter Start Time: 11:00 -: non-verbal Pt remains on trac, still waiitng on placmeent with neding Mechanival ventilation at Nights per pulmonary. - Objective Resuscitation Status: Resuscitation Status FULL:Full Resuscitation MAR Reviewed: Yes Vital Signs & Weight: Vital Signs (12 hours) Temp Pulse Pulse Pulse Resp BP BP 03/18/18 12:00 98.4 F 03/18/18 09:13 85 79 137/72 124/77 03/18/18 07:47 03/18/18 07:44 84 23 H 03/18/18 07:24 98.9 F 73 24 H 03/18/18 07:00 98.9 F 03/18/18 06:00 21 H 03/18/18 04:00 98.0 F 21 H 03/18/18 02:00 19 Pulse Ox Pulse Ox Pulse Ox 03/18/18 12:00 03/18/18 09:13 89 L 89 L 03/18/18 07:47 90 L 03/18/18 07:44 90 L 03/18/18 07:24 91 L 03/18/18 07:00 03/18/18 06:00 03/18/18 04:00 03/18/18 02:00 Weight Admit Weight 600 lb Weight 450 lb 6.47 oz Most Recent Monitor Data Heart Rate from ECG 73 NIBP 121/62 NIBP BP-Mean 87 Respiration from ECG 22 SpO2 91 I&O: 03/17/18 03/18/18 03/19/18 06:59 06:59 06:59 Intake Total 1044.8 852 90 Output Total 1835 1815 605 Balance -790.2 -963 -515 Result Diagrams: 03/17/18 04:10 03/18/18 05:32 Radiology Reviewed by me: Yes Phys Exam - Physical Examination HEENT: PERRLA Neck: no nodes Respiratory: no wheezing, no rales Cardiovascular: RRR, no significant murmur Gastrointestinal: soft, non-tender Musculoskeletal: edema present Neurological: non-focal, moves all 4 limbs Psychiatric: normal affect Dx/Plan (1) Acute idiopathic thrombocytopenic purpura Code(s): D69.3 - IMMUNE THROMBOCYTOPENIC PURPURA Status: Resolved Comment: resolved. (2) Acute and chronic respiratory failure Code(s): J96.20 - ACUTE AND CHR RESP FAILURE, UNSP W HYPOXIA OR HYPERCAPNIA Status: Acute Qualifiers: Respiratory failure complication: hypercapnia Qualified Code(s): J96.22 - Acute and chronic respiratory failure with hypercapnia Comment: Pt on Trach with mecanical ventilation per pulmonary. (3) Acute on chronic diastolic (congestive) heart failure Code(s): I50.33 - ACUTE ON CHRONIC DIASTOLIC (CONGESTIVE) HEART FAILURE Status : Chronic Comment: Continue with lasix Diuresis as needed. (4) Hypokalemia Code(s): E87.6 - HYPOKALEMIA Status: Acute Comment: continue electrolyte replacement protocol (5) Morbid obesity with BMI of 70 and over, adult Code(s): E66.01 - MORBID (SEVERE) OBESITY DUE TO EXCESS CALORIES; Z68.45 - BODY MASS INDEX (BMI) 70 OR GREATER, ADULT Status: Chronic (6) Pickwickian syndrome Code(s): E66.2 - MORBID (SEVERE) OBESITY WITH ALVEOLAR HYPOVENTILATION Status : Chronic (7) Pulmonary embolism Code(s): I26.99 - OTHER PULMONARY EMBOLISM WITHOUT ACUTE COR PULMONALE Status : Suspected Comment: continue heparin drip per DVT/PE protocol (8) Afib Code(s): I48.91 - UNSPECIFIED ATRIAL FIBRILLATION Status: Chronic Qualifiers: Atrial fibrillation type: paroxysmal Qualified Code(s): I48.0 - Paroxysmal atrial fibrillation Comment: On Amiodarone per cardiology. Will stephenley Monitor. Platelets stabel count. - Plan cont current plan of care, manager social work (Waiting on Case management to find the Facility which suits her medical condition and requirements.), respiratory therapy * . - Discharge Day Encounter end time: 11:35 Review of Systems - Review of Systems Other: Pt is non verbal. - Medications/Allergies Allergies/Adverse Reactions: Allergies Allergy/AdvReac Type Severity Reaction Status Date / Time No Known Drug Allergies Allergy Verified 03/08/18 14:16 Medications: Current Medications Acetaminophen (Tylenol Elixir) 1,000 mg PER TUBE Q6H PRN PRN Reason: Headache/Fever or Pain Last Admin: 03/11/18 08:33 Dose: 1,000 mg Albuterol/Ipratropium (Duoneb) 3 ml NEB [id number] HEIKE Last Admin: 03/18/18 07:44 Dose: 3 ml Amiodarone HCl (Cordarone) 200 mg PO DAILY [facility] Last Admin: 03/18/18 08:37 Dose: 200 mg Lipase/Protease/[place] ([place] [id number]) 1 cap FS .PER PROTOCOL PRN PRN Reason: TUBE OCCLUSION PROTOCOL Apixaban (Eliquis) 5 mg PO BID [facility] Last Admin: 03/18/18 08:37 Dose: 5 mg Aspirin (Aspirin Chewable) 81 mg PO DAILY [facility] Last Admin: 03/18/18 08:37 Dose: 81 mg Clonidine (Catapres) 0.1 mg PO Q4H PRN PRN Reason: Systolic BP > 180 Last Admin: 03/10/18 18:11 Dose: 0.1 mg Hydralazine HCl (Apresoline) 10 mg SLOW IVP Q4H PRN PRN Reason: Systolic BP > 180 Last Admin: 03/14/18 17:06 Dose: 10 mg Potassium Chloride 40 meq/ (Sodium Chloride) 270 mls @ 135 mls/hr IVPB ASDIR PRN PRN Reason: FOR SERUM K+ 2.5 - 3.5 Last Admin: 02/28/18 06:18 Dose: 270 mls Potassium Chloride 40 meq/ (Device) 100 mls @ 50 mls/hr IVPB ASDIR PRN PRN Reason: FOR SERUM K+ 2.5 - 3.5 Magnesium Sulfate 1 gm/ Sodium (Chloride) 102 mls @ 102 mls/hr IV PRN PRN PRN Reason: MAG LEVEL 1.4 - 2.0 Magnesium Sulfate 2 gm/ Device 100 mls @ 100 mls/hr IVPB ASDIR PRN PRN Reason: MAGNESIUM < 1.4 Potassium Phosphate 9 mmol/ (Sodium Chloride) 103 mls @ 25.75 mls/hr IVPB ASDIR PRN PRN Reason: Phosphate 1.0-1.8 Potassium Phosphate 12 mmol/ (Sodium Chloride) 254 mls @ 63.5 mls/hr IV ASDIR PRN PRN Reason: Serum phosphate 0.5-0.9 Potassium Phosphate 15 mmol/ (Sodium Chloride) 255 mls @ 63.75 mls/hr IV ASDIR PRN PRN Reason: Serum Phos < 0.5 Losartan Potassium (Cozaar) 25 mg PO DAILY [facility] Last Admin: 03/18/18 08:37 Dose: 25 mg Magnesium Oxide (Magnesium Oxide) 400 mg PO BIDPRN PRN PRN Reason: FOR SERUM MAG 1.4 - 2.0 Magnesium Oxide (Magnesium Oxide) 800 mg PO PRN PRN PRN Reason: FOR SERUM MAG < 1.4 Miscellaneous Medication (Phos-Nak) 1 pkt PO TIDPRN PRN PRN Reason: FOR PHOS LEVEL 1.0 - 1.8 Miscellaneous Medication (Phos-Nak) 2 pkt PO TIDPRN PRN PRN Reason: FOR PHOS LEVEL 0.5 - 1.0 Morphine Sulfate (Morphine) 4 mg SLOW IVP Q30MIN PRN PRN Reason: Pain Last Admin: 03/18/18 08:12 Dose: 4 mg Ondansetron HCl (Zofran Odt) 4 mg PO Q6H PRN PRN Reason: Nausea/Vomiting Ondansetron HCl (Zofran) 4 mg IVP Q6H PRN PRN Reason: Nausea/Vomiting Pantoprazole Sodium (Protonix) 40 mg PER TUBE DAILY [facility] Last Admin: 03/18/18 08:38 Dose: 40 mg Potassium Chloride (K-Dur) 40 meq PO ASDIR PRN PRN Reason: FOR SERUM K+ 2.5 - 3.5 Last Admin: 03/04/18 06:43 Dose: 40 meq Potassium Chloride (Klor-Con) 40 meq PER TUBE ASDIR PRN PRN Reason: FOR SERUM K+ 2.5-3.5 Last Admin: 03/09/18 06:22 Dose: 40 meq Sodium Bicarbonate (Bicarbonate, Sodium) 650 mg PER TUBE .PER PROTOCOL PRN PRN Reason: ENTERAL TUBE OCCLUSION Sodium Chloride (Flush - Normal Saline) 10 ml IVF Q12HR HEIKE Last Admin: 03/18/18 08:37 Dose: 10 ml Sodium Chloride (Flush - Normal Saline) 10 ml IVF PRN PRN PRN Reason: Saline Flush Last Admin: 03/14/18 08:28 Dose: 10 ml
--- NOTE | 2018-03-18 17:08 | PDOC.CTH ---
Cardiology Progress Note - Subjective No new issues. - Objective Vital Signs Temp Pulse Pulse Pulse Resp BP BP 03/18/18 16:00 98.3 F 03/18/18 14:02 78 32 H 03/18/18 12:00 98.4 F 03/18/18 09:13 85 79 137/72 124/77 03/18/18 07:47 03/18/18 07:44 84 23 H 03/18/18 07:24 98.9 F 73 24 H 03/18/18 07:00 98.9 F 03/18/18 06:00 21 H Pulse Ox Pulse Ox Pulse Ox 03/18/18 16:00 03/18/18 14:02 91 L 03/18/18 12:00 03/18/18 09:13 89 L 89 L 03/18/18 07:47 90 L 03/18/18 07:44 90 L 03/18/18 07:24 91 L 03/18/18 07:00 03/18/18 06:00 Admit Weight 600 lb Weight 450 lb 6.47 oz 03/17/18 03/18/18 03/19/18 06:59 06:59 06:59 Intake Total 1044.8 852 120 Output Total 1835 1815 785 Balance -790.2 -963 -805 - Physical Examination General/Neuro: NAD Neck: no JVD present Lungs: CTA, unlabored respirations Heart: RRR Abdomen: NT/ND Extremities: + edema B (2+) - Telemetry Telemetry Rhythm: NSR - Labs Result Diagrams: 03/17/18 04:10 03/18/18 05:32 Troponin/CKMB CK-MB (CK-2) 2.9 ng/mL (0-6.6) 02/26/18 01:05 Troponin I 0.180 ng/mL (< 0.028) H 02/26/18 06:57 - Assessment/Plan 1. Acute hypoxic hypercapnic respiratory insufficiency 2. Acute on chronic RV dysfunction. 3. Acute on chronic diastolic heart failure, improved. 4. Morbid obesity, BMI 103 5. Pickwickian syndrome 6. Afib RVR, in sinus now. PLAN: - Eliquis 5 mg BID. - Amiodarone to 200 mg daily, maintenance dose. - A little more volume up today. Will give one IV lasix dose today. - Placement.
[2018-03-19 05:31] LABS: BUN (Urea Nitrogen) 45 mg/dL (9.8-20.1); Calc. Creatinine Clearance 238 mL/min (70-130); Calcium 9.2 mg/dL (7.8-10.44); Estimated GFR-MDRD 73; Glucose 100 mg/dL (80-115)
[2018-03-19 05:41] LABS: Anion Gap 14 mmol/L (10-20); Carbon Dioxide 33 mmol/L (23-31); Chloride 101 mmol/L (98-107); Potassium 4.1 mmol/L (3.5-5.1); Sodium 144 mmol/L (136-145)
[2018-03-19] MEDS: Apixaban 5 MG TAB PO SCH ×2 (08:36→21:32)
[2018-03-19] MEDS: Losartan 25 MG TAB PO SCH (08:36)
[2018-03-19] MEDS: Amiodarone 200 MG TAB PO SCH (08:36)
[2018-03-19] MEDS: Pantoprazole 40 MG GRANULES PACKET PER TUBE SCH (08:36)
--- NOTE | 2018-03-19 11:39 | PRG ---
DATE OF SERVICE: 03/18/2018 SUBJECTIVE: She is doing better. She is awake and alert. She has been wearing the vent at night, b ut using trach collar all day long without difficulty. PHYSICAL EXAMINATION: VITAL SIGNS: Temperature is 98.7, pulse 77, blood pressure 128/57, 24-hour intake 1995, out put 1465 . HEENT: Unremarkable. NECK: No JVD. Trach clear. CARDIAC: S1 and S2 regular. LUNGS: Diminished breath sounds. ABDOMEN: Soft, obese, nontender. EXTREMITIES: Edematous. LABORATORY DATA: Sodium 144, potassium 4.1, chloride 101, CO2 of 33, BUN 45, creatinine 0.8, glucose 100. ASSESSMENT: 1. Obesity hypoventilation syndrome. 2. Status post tracheostomy. 3. Prerenal azotemia. 4. Paroxysmal atrial fibrillation. PLAN: We will try to go without using the ventilator at all to night. I would continue to hold diur etics.
--- NOTE | 2018-03-19 18:58 | PDOC.CTH ---
Cardiology Progress Note - Subjective No new issues. - Objective Vital Signs Temp Pulse Pulse Pulse Resp BP BP 03/19/18 18:37 82 22 H 03/19/18 16:00 98.7 F 03/19/18 14:30 81 23 H 03/19/18 12:00 98.9 F 03/19/18 10:30 84 82 116/49 L 132/69 03/19/18 08:00 98.6 F 73 18 Pulse Ox Pulse Ox Pulse Ox 03/19/18 18:37 90 L 03/19/18 16:00 03/19/18 14:30 90 L 03/19/18 12:00 03/19/18 10:30 89 L 95 03/19/18 08:00 94 L Admit Weight 600 lb Weight 450 lb 6.47 oz 03/18/18 03/19/18 03/20/18 06:59 06:59 06:59 Intake Total 852 1996 627 Output Total 1815 1465 900 Balance -963 531 -273 - Physical Examination General/Neuro: alert & oriented x3, NAD Neck: no JVD present Lungs: CTA, unlabored respirations Heart: RRR Abdomen: NT/ND Extremities: + edema B (2+) - Telemetry Telemetry Rhythm: NSR - Labs Result Diagrams: 03/17/18 04:10 03/19/18 04:54 Troponin/CKMB CK-MB (CK-2) 2.9 ng/mL (0-6.6) 02/26/18 01:05 Troponin I 0.180 ng/mL (< 0.028) H 02/26/18 06:57 - Assessment/Plan 1. Acute hypoxic hypercapnic respiratory insufficiency 2. Acute on chronic RV dysfunction. 3. Acute on chronic diastolic heart failure, improved. 4. Morbid obesity, BMI 103 5. Pickwickian syndrome 6. Afib RVR, in sinus now. PLAN: - Eliquis 5 mg BID. - Amiodarone to 200 mg daily, maintenance dose. - Lasix PO at 40 mg daily likely needs it all the time. - Monitor K - Placement. - Will sign out. Please call with any questions.
[2018-03-20 04:38] LABS: Hemoglobin 8.8 g/dL (12.0-16.0); Platelet Count 92 thou/uL (130-400)
[2018-03-20 05:08] LABS: Anion Gap 10 mmol/L (10-20); BUN (Urea Nitrogen) 40 mg/dL (9.8-20.1); Calc. Creatinine Clearance 130 mL/min (70-130); Calcium 8.4 mg/dL (7.8-10.44); Carbon Dioxide 30 mmol/L (23-31); Chloride 100 mmol/L (98-107); Estimated GFR-MDRD 36; Glucose 108 mg/dL (80-115); Potassium 3.1 mmol/L (3.5-5.1); Sodium 137 mmol/L (136-145)
[2018-03-20] MEDS: Acetaminophen 650 MG/20.3 ML UDCUP PER TUBE PRN ×2 (08:42→21:04)
[2018-03-20] MEDS: Apixaban 5 MG TAB PO SCH ×2 (08:42→20:56)
[2018-03-20] MEDS: Amiodarone 200 MG TAB PO SCH (08:43)
[2018-03-20] MEDS: Pantoprazole 40 MG GRANULES PACKET PER TUBE SCH (08:43)
[2018-03-20] MEDS: Losartan 25 MG TAB PO SCH (08:43)
[2018-03-20 08:50] LABS: Actual Bicarbonate (HCO3a) 36.3 mEq/L (22-26); Base Excess (BEa) 8.9 mEq/L (0 (+/-) 2.5); CO2 Tension 65.3 mmHg (35.0-45.0); O2 Tension (PaO2) 48.7 mmHg (80.0-100.0); pH, Arterial 7.36 (7.35-7.45)
[2018-03-20 08:51] LABS: ALV-art Gradient 152.875 (0-20); Calcium, Ionized 1.3 mmol/L (1.12-1.30); Hematocrit-ABG 39.8 % (36.0-47.0); Hemoglobin (Hb) 11.2 g/dL (12.0-16.0); Puncture Site RRA
--- NOTE | 2018-03-20 10:23 | PRG ---
DATE OF SERVICE: 03/20/2018 SUBJECTIVE: She stayed off the ventilator last night. She is somewhat more somnolent this morning t landon she has been. PHYSICAL EXAMINATION: VITAL SIGNS: O2 sats running from the high 80s to low 90s on trach collar. Heart rate 85, blood pre ssure 111/44. HEENT: Unremarkable. NECK: Trach in good position. LUNGS: Distant breath sounds. CARDIAC: S1 and S2 regular. ABDOMEN: Soft, obese. EXTREMITIES: Edematous. LABORATORY DATA: Sodium 137, potassium 3.1, chloride 100, CO2 30, BUN 40, creatinine 1.5, glucose 10 8, hematocrit 26.4, and platelet count 92. ASSESSMENT: 1. Obesity hypoventilation syndrome. 2. Status post trach. 3. Mild thrombocytopenia. PLAN: 1. Check ABG to make sure that her CO2 level was not extraordinarily high. If it is high, then we w ill have to consider continuing nocturnal ventilation. 2. Funding is a major issue with this patient. I do think she will ever be in a situation where she can go home and take care of herself. 3. Cautious anticoagulation given her thrombocytopenia and need for Eliquis for the paroxysmal atria l fibrillation.
[2018-03-20] MEDS: cloNIDine 0.1 MG TAB PO PRN (21:05)
[2018-03-21 05:52] LABS: Anion Gap 9 mmol/L (10-20); BUN (Urea Nitrogen) 37 mg/dL (9.8-20.1); Calc. Creatinine Clearance 247 mL/min (70-130); Calcium 9.4 mg/dL (7.8-10.44); Carbon Dioxide 35 mmol/L (23-31); Chloride 105 mmol/L (98-107); Estimated GFR-MDRD 76; Glucose 101 mg/dL (80-115); Potassium 4.7 mmol/L (3.5-5.1); Sodium 144 mmol/L (136-145)
[2018-03-21 07:32] LABS: pH, Arterial 7.35 (7.35-7.45)
[2018-03-21 07:33] LABS: Actual Bicarbonate (HCO3a) 37.1 mEq/L (22-26); Base Excess (BEa) 9.4 mEq/L (0 (+/-) 2.5); CO2 Tension 68.3 mmHg (35.0-45.0); Hematocrit-ABG 40.6 % (36.0-47.0); Hemoglobin (Hb) 11.4 g/dL (12.0-16.0); O2 Tension (PaO2) 55.2 mmHg (80.0-100.0)
[2018-03-21 07:35] LABS: ALV-art Gradient 142.625 (0-20); Calcium, Ionized 1.3 mmol/L (1.12-1.30); Puncture Site RRA
[2018-03-21] MEDS: Losartan 25 MG TAB PO SCH (08:06)
[2018-03-21] MEDS: Amiodarone 200 MG TAB PO SCH (08:06)
[2018-03-21] MEDS: Apixaban 5 MG TAB PO SCH ×2 (08:07→20:38)
[2018-03-21] MEDS: Pantoprazole 40 MG GRANULES PACKET PER TUBE SCH (08:07)
[2018-03-21] MEDS ORDERED: Diltiazem 125 MG in Sodium Chloride 0.9% 100 ML IVPB SCH (08:15)
[2018-03-21 09:00] LABS: Troponin I 0.038 ng/mL (< 0.028)
--- NOTE | 2018-03-21 11:06 | PRG ---
DATE OF SERVICE: 03/21/2018 Thirty-five minutes critical care time. SUBJECTIVE: The patient was worse this morning. She was experiencing tachypnea, hypoxemia, and atri al fibrillation with a rapid ventricular response. She was placed back on the ventilator despite juan pablo t her atrial fibrillation has persisted. She also has ST segment depression in lead V1 on the teleme try monitor. OBJECTIVE: VITAL SIGNS: Temperature is 98.4, pulse 141, blood pressure 120/68. A 24-hour intake 1504, output 1 910. HEENT: Unremarkable. NECK: No JVD. Trach in good position. LUNGS: Clear to auscultation. CARDIAC: S1, S2, irregularly irregular, tachycardic. ABDOMEN: Soft, obese, nontender, nondistended. EXTREMITIES: Brawny edema throughout. LABORATORY DATA: Sodium 144, potassium 4.7, chloride 105, CO2 35, BUN 37, creatinine 0.7, glucose 10 1. ABG, pH 7.35, pCO2 68, pO2 of 55 on SIMV rate 8, tidal volume 390, PEEP 5, pressure support 10, F IO2 40%. ASSESSMENT: 1. Atrial fibrillation with rapid ventricular response - she has had this previously, but it has bee n controlled on amiodarone. I suspect she could be experiencing cardiac ischemia based on the appear ance of her telemetry strips. 2. Acute respiratory failure requiring mechanical ventilation and tracheostomy placement. 3. Obstructive sleep apnea/obesity hypoventilation syndrome. 4. Morbid obesity. PLAN: 1. I have put her back on the ventilator with full support. 2. Reconsult Cardiology. 3. Start Cardizem drip to see if we can slow the rate. 4. Check troponin and check EKG. 5. Prognosis remains extremely poor given her underlying comorbid illnesses.
--- NOTE | 2018-03-21 11:48 | PDOC.CTH ---
Cardiology Progress Note - Objective Vital Signs Temp Pulse Resp BP Pulse Ox 03/21/18 10:48 112 H 98/58 L 03/21/18 10:00 29 H 03/21/18 08:21 152 H 93/64 03/21/18 08:00 98.9 F 134 H 30 H 89 L 03/21/18 07:53 131 H 106/72 03/21/18 07:15 30 H 03/21/18 04:00 98.4 F 03/21/18 01:00 98.6 F 03/21/18 00:44 83 33 H 88 L Admit Weight 600 lb Weight 450 lb 6.47 oz 03/20/18 03/21/18 03/22/18 06:59 06:59 06:59 Intake Total 1505 1504 90 Output Total 1505 1910 405 Balance 0 -406 -315 - Physical Examination General/Neuro: other: (still on ventilator.) Lungs: CTA Heart: other: (irreg/irreg.) Extremities: other: (morbid obesity , chronic edema.) - Labs Result Diagrams: 03/20/18 04:12 03/21/18 03:30 Troponin/CKMB CK-MB (CK-2) 2.9 ng/mL (0-6.6) 02/26/18 01:05 Troponin I 0.038 ng/mL (< 0.028) H 03/21/18 08:29 - Assessment/Plan 1. Acute hypoxic hypercapnic respiratory insufficiency 2. Acute on chronic RV dysfunction. 3. Acute on chronic diastolic heart failure, improved. 4. Morbid obesity, BMI 103 5. Pickwickian syndrome 6. Afib RVR, was in sinus, now back in Afb. with RVR. She was given a trial yesterday and last night with being off the ventilator and just the trach collar. Likely this was too stress ful and the O2 sats. may have decreased to provoke the a-fib. again. Continue Amiodarone, Diltiazem, add digoxin..
[2018-03-21] MEDS ORDERED: Digoxin 0.5 MG/2 ML AMP SLOW IVP SCH ×2 (12:45→18:00)
[2018-03-21] MEDS: Acetaminophen 650 MG/20.3 ML UDCUP PER TUBE PRN (17:56)
[2018-03-22] MEDS ORDERED: Digoxin 0.5 MG/2 ML AMP SLOW IVP SCH (02:00)
[2018-03-22 04:42] LABS: Hemoglobin 10.8 g/dL (12.0-16.0); Platelet Count 142 thou/uL (130-400)
[2018-03-22 04:51] LABS: Anion Gap 6 mmol/L (10-20); BUN (Urea Nitrogen) 41 mg/dL (9.8-20.1); Calc. Creatinine Clearance 241 mL/min (70-130); Carbon Dioxide 37 mmol/L (23-31); Chloride 105 mmol/L (98-107); Estimated GFR-MDRD 74; Glucose 91 mg/dL (80-115); Potassium 4.8 mmol/L (3.5-5.1); Sodium 143 mmol/L (136-145)
[2018-03-22 07:53] LABS: Actual Bicarbonate (HCO3a) 36.1 mEq/L (22-26); CO2 Tension 63.8 mmHg (35.0-45.0); Hematocrit-ABG 36.3 % (36.0-47.0); Hemoglobin (Hb) 10.5 g/dL (12.0-16.0); O2 Tension (PaO2) 77.2 mmHg (80.0-100.0); pH, Arterial 7.37 (7.35-7.45)
[2018-03-22 07:54] LABS: Calcium, Ionized 1.3 mmol/L (1.12-1.30); Puncture Site RRA
[2018-03-22] MEDS: Losartan 25 MG TAB PO SCH (08:53)
[2018-03-22] MEDS: Acetaminophen 650 MG/20.3 ML UDCUP PER TUBE PRN (08:53)
[2018-03-22] MEDS: Apixaban 5 MG TAB PO SCH ×2 (08:53→20:03)
[2018-03-22] MEDS: Amiodarone 200 MG TAB PO SCH (08:53)
[2018-03-22] MEDS: Pantoprazole 40 MG GRANULES PACKET PER TUBE SCH (08:53)
[2018-03-22] MEDS: Digoxin 0.125 MG TAB PO SCH (08:53)
--- NOTE | 2018-03-22 10:52 | PRG ---
DATE OF SERVICE: 03/22/2018 Thirty-five minutes critical care time. SUBJECTIVE: Ms. Sauceda is doing better today from a cardiovascular standpoint. Her heart rate is no w under control and it looks like she is probably back in a sinus rhythm. PHYSICAL EXAMINATION: VITAL SIGNS: T-max yesterday is 100.8, currently 99.8; pulse 74; blood pressure 112/52. She is off the Cardizem drip. HEENT: Unremarkable. NECK: Trach in good position. LUNGS: Coarse breath sounds anteriorly. CARDIOVASCULAR: S1, S2 regular. ABDOMEN: Soft. EXTREMITIES: Edematous. LABORATORY DATA: Sodium 143, potassium 4.8, chloride 105, CO2 of 37, BUN 41, creatinine 0.7, glucose 91. ASSESSMENT: 1. Acute respiratory failure, requiring mechanical ventilation and tracheostomy placement. 2. Obstructive sleep apnea/obesity hypoventilation syndrome. 3. Atrial fibrillation. PLAN: I do not think she is weanable at the current time. I am leaving her on SIMV rate, we will se e how she does over the next several days. She is currently off diuretics because of development of prerenal azotemia. She does not appear to be overtly fluid overload at this time. Placement is ginger g to be an issue because she is neither citizen nor permanent resident of the country and is not elig ible for senior living benefits. She has no financial services representative and home ventilation will not be possible.
--- NOTE | 2018-03-22 14:12 | PDOC.PN ---
- Subjective Encounter Start Date: 03/19/18 Encounter Start Time: 08:00 Patient is seen today, remains off of ventilator on Trach 5 liters. waiting on placement. - Objective Resuscitation Status: Resuscitation Status FULL:Full Resuscitation MAR Reviewed: Yes Vital Signs & Weight: Vital Signs (12 hours) Temp Pulse Resp BP Pulse Ox 03/22/18 13:25 71 139/71 03/22/18 12:00 98.7 F 21 H 03/22/18 10:50 67 98/46 L 03/22/18 10:00 21 H 03/22/18 08:53 70 03/22/18 08:00 98.6 F 70 21 H 90 L 03/22/18 07:28 70 115/46 L 03/22/18 06:00 25 H 03/22/18 04:00 99.8 F H 24 H 03/22/18 02:19 72 Weight Admit Weight 600 lb Weight 450 lb 6.47 oz Most Recent Monitor Data Heart Rate from ECG 70 NIBP 102/44 NIBP BP-Mean 62 Respiration from ECG 22 SpO2 92 I&O: 03/21/18 03/22/18 03/23/18 06:59 06:59 06:59 Intake Total 1504 1590.1 120 Output Total 1910 1320 365 Balance -406 270.1 -245 Result Diagrams: 03/22/18 03:35 03/22/18 03:35 Radiology Reviewed by me: Yes Phys Exam - Physical Examination HEENT: PERRLA, moist MMs Neck: no nodes, no JVD Respiratory: no wheezing, no rales Cardiovascular: RRR, no significant murmur Gastrointestinal: soft, non-tender Musculoskeletal: no edema, pulses present Neurological: non-focal, normal sensation Lymphatic: no nodes Psychiatric: normal affect Dx/Plan (1) Acute idiopathic thrombocytopenic purpura Code(s): D69.3 - IMMUNE THROMBOCYTOPENIC PURPURA Status: Resolved Comment: resolved. (2) Acute and chronic respiratory failure Code(s): J96.20 - ACUTE AND CHR RESP FAILURE, UNSP W HYPOXIA OR HYPERCAPNIA Status: Acute Qualifiers: Respiratory failure complication: hypercapnia Qualified Code(s): J96.22 - Acute and chronic respiratory failure with hypercapnia Comment: Pt on Trach off mecanical ventilation per pulmonary. (3) Acute on chronic diastolic (congestive) heart failure Code(s): I50.33 - ACUTE ON CHRONIC DIASTOLIC (CONGESTIVE) HEART FAILURE Status : Chronic Comment: Continue with lasix Diuresis as needed. (4) Hypokalemia Code(s): E87.6 - HYPOKALEMIA Status: Acute Comment: continue electrolyte replacement protocol (5) Morbid obesity with BMI of 70 and over, adult Code(s): E66.01 - MORBID (SEVERE) OBESITY DUE TO EXCESS CALORIES; Z68.45 - BODY MASS INDEX (BMI) 70 OR GREATER, ADULT Status: Chronic (6) Pickwickian syndrome Code(s): E66.2 - MORBID (SEVERE) OBESITY WITH ALVEOLAR HYPOVENTILATION Status : Chronic (7) Pulmonary embolism Code(s): I26.99 - OTHER PULMONARY EMBOLISM WITHOUT ACUTE COR PULMONALE Status : Suspected Comment: continue heparin drip per DVT/PE protocol (8) Afib Code(s): I48.91 - UNSPECIFIED ATRIAL FIBRILLATION Status: Chronic Qualifiers: Atrial fibrillation type: paroxysmal Qualified Code(s): I48.0 - Paroxysmal atrial fibrillation Comment: On Amiodarone per cardiology. Will closley Monitor. Platelets stabel count. - Plan cont current plan of care, geriatric social work professor, respiratory therapy, DVT proph w/ lovenox, DVT proph w/SCDs * . Review of Systems - Review of Systems Other: Pt remains Non verbal. - Medications/Allergies Allergies/Adverse Reactions: Allergies Allergy/AdvReac Type Severity Reaction Status Date / Time No Known Drug Allergies Allergy Verified 03/08/18 14:16 Medications: Current Medications Acetaminophen (Tylenol Elixir) 1,000 mg PER TUBE Q6H PRN PRN Reason: Headache/Fever or Pain Last Admin: 03/22/18 08:53 Dose: 1,000 mg Albuterol/Ipratropium (Duoneb) 3 ml NEB [id number] HEIKE Last Admin: 03/22/18 13:25 Dose: 3 ml Amiodarone HCl (Cordarone) 200 mg PO DAILY [facility] Last Admin: 03/22/18 08:53 Dose: 200 mg Lipase/Protease/Amylase ([place] [id number]) 1 cap FS .PER PROTOCOL PRN PRN Reason: TUBE OCCLUSION PROTOCOL Apixaban (Eliquis) 5 mg PO BID [facility] Last Admin: 03/22/18 08:53 Dose: 5 mg Aspirin (Aspirin Chewable) 81 mg PO DAILY [facility] Last Admin: 03/22/18 08:53 Dose: 81 mg Clonidine (Catapres) 0.1 mg PO Q4H PRN PRN Reason: Systolic BP > 180 Last Admin: 03/20/18 21:05 Dose: 0.1 mg [facility] ([facility]an[facility]) [facility] [place] Last Admin: 03/22/18 08:53 Dose: 0.125 mg Hydralazine HCl (Apresoline) 10 mg SLOW IVP Q4H PRN PRN Reason: Systolic BP > 180 Last Admin: 03/14/18 17:06 Dose: 10 mg Potassium Chloride 40 meq/ (Sodium Chloride) 270 mls @ 135 mls/hr IVPB ASDIR PRN PRN Reason: FOR SERUM K+ 2.5 - 3.5 Last Admin: 02/28/18 06:18 Dose: 270 mls Potassium Chloride 40 meq/ (Device) 100 mls @ 50 mls/hr IVPB ASDIR PRN PRN Reason: FOR SERUM K+ 2.5 - 3.5 Magnesium Sulfate 1 gm/ Sodium (Chloride) 102 mls @ 102 mls/hr IV PRN PRN PRN Reason: MAG LEVEL 1.4 - 2.0 Magnesium Sulfate 2 gm/ Device 100 mls @ 100 mls/hr IVPB ASDIR PRN PRN Reason: MAGNESIUM < 1.4 Potassium Phosphate 9 mmol/ (Sodium Chloride) 103 mls @ 25.75 mls/hr IVPB ASDIR PRN PRN Reason: Phosphate 1.0-1.8 Potassium Phosphate 12 mmol/ (Sodium Chloride) 254 mls @ 63.5 mls/hr IV ASDIR PRN PRN Reason: Serum phosphate 0.5-0.9 Potassium Phosphate 15 mmol/ (Sodium Chloride) 255 mls @ 63.75 mls/hr IV ASDIR PRN PRN Reason: Serum Phos < 0.5 Diltiazem HCl 125 mg/ Sodium (Chloride) 125 mls @ 0 mls/hr IVPB INF [facility]; Titrate PRN Reason: Protocol Last Admin: 03/21/18 08:45 Dose: 125 mls Losartan Potassium (Cozaar) 25 mg PO DAILY [facility] Last Admin: 03/22/18 08:53 Dose: 25 mg Magnesium Oxide (Magnesium Oxide) 400 mg PO BIDPRN PRN PRN Reason: FOR SERUM MAG 1.4 - 2.0 Magnesium Oxide (Magnesium Oxide) 800 mg PO PRN PRN PRN Reason: FOR SERUM MAG < 1.4 Miscellaneous Medication (Phos-Nak) 1 pkt PO TIDPRN PRN PRN Reason: FOR PHOS LEVEL 1.0 - 1.8 Miscellaneous Medication (Phos-Nak) 2 pkt PO TIDPRN PRN PRN Reason: FOR PHOS LEVEL 0.5 - 1.0 Ondansetron HCl (Zofran Odt) 4 mg PO Q6H PRN PRN Reason: Nausea/Vomiting Ondansetron HCl (Zofran) 4 mg IVP Q6H PRN PRN Reason: Nausea/Vomiting Pantoprazole Sodium (Protonix) 40 mg PER TUBE DAILY [facility] Last Admin: 03/22/18 08:53 Dose: 40 mg Potassium Chloride (K-Dur) 40 meq PO ASDIR PRN PRN Reason: FOR SERUM K+ 2.5 - 3.5 Last Admin: 03/04/18 06:43 Dose: 40 meq Potassium Chloride (Klor-Con) 40 meq PER TUBE ASDIR PRN PRN Reason: FOR SERUM K+ 2.5-3.5 Last Admin: 03/20/18 08:42 Dose: 40 meq Sodium Bicarbonate (Bicarbonate, Sodium) 650 mg PER TUBE .PER PROTOCOL PRN PRN Reason: ENTERAL TUBE OCCLUSION Sodium Chloride (Flush - Normal Saline) 10 ml IVF Q12HR HEIKE Last Admin: 03/22/18 08:54 Dose: 10 ml Sodium Chloride (Flush - Normal Saline) 10 ml IVF PRN PRN PRN Reason: Saline Flush Last Admin: 03/14/18 08:28 Dose: 10 ml
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
--- NOTE | 2018-03-22 14:19 | PDOC.PN ---
- Subjective Encounter Start Date: 03/21/18 Encounter Start Time: 10:00 Patient is seen today, Is back on mechanical ventilation as her ABg was getting worse with Co2 retention. Pt is Alos in AFib with RVR. Waiting on cardioogy to recommed. - Objective Resuscitation Status: Resuscitation Status FULL:Full Resuscitation MAR Reviewed: Yes Vital Signs & Weight: Vital Signs (12 hours) Temp Pulse Resp BP Pulse Ox 03/22/18 13:25 71 139/71 03/22/18 12:00 98.7 F 21 H 03/22/18 10:50 67 98/46 L 03/22/18 10:00 21 H 03/22/18 08:53 70 03/22/18 08:00 98.6 F 70 21 H 90 L 03/22/18 07:28 70 115/46 L 03/22/18 06:00 25 H 03/22/18 04:00 99.8 F H 24 H 03/22/18 02:19 72 Weight Admit Weight 600 lb Weight 450 lb 6.47 oz Most Recent Monitor Data Heart Rate from ECG 70 NIBP 102/44 NIBP BP-Mean 62 Respiration from ECG 22 SpO2 92 I&O: 03/21/18 03/22/18 03/23/18 06:59 06:59 06:59 Intake Total 1504 1590.1 120 Output Total 1910 1320 365 Balance -406 270.1 -245 Result Diagrams: 03/22/18 03:35 03/22/18 03:35 Radiology Reviewed by me: Yes Phys Exam - Physical Examination HEENT: PERRLA, moist MMs Neck: no nodes, no JVD Respiratory: no wheezing, no rales Cardiovascular: RRR, no significant murmur Gastrointestinal: soft, non-tender Musculoskeletal: pulses present, edema present Neurological: non-focal Lymphatic: no nodes Psychiatric: normal affect, A&O x 3 Skin: no rash Dx/Plan (1) Acute idiopathic thrombocytopenic purpura Code(s): D69.3 - IMMUNE THROMBOCYTOPENIC PURPURA Status: Resolved Comment: resolved. (2) Acute and chronic respiratory failure Code(s): J96.20 - ACUTE AND CHR RESP FAILURE, UNSP W HYPOXIA OR HYPERCAPNIA Status: Acute Qualifiers: Respiratory failure complication: hypercapnia Qualified Code(s): J96.22 - Acute and chronic respiratory failure with hypercapnia Comment: Pt on Trach back on mecanical ventilation per pulmonary. (3) Acute on chronic diastolic (congestive) heart failure Code(s): I50.33 - ACUTE ON CHRONIC DIASTOLIC (CONGESTIVE) HEART FAILURE Status : Chronic Comment: Continue with lasix Diuresis as needed. (4) Hypokalemia Code(s): E87.6 - HYPOKALEMIA Status: Acute Comment: continue electrolyte replacement protocol (5) Morbid obesity with BMI of 70 and over, adult Code(s): E66.01 - MORBID (SEVERE) OBESITY DUE TO EXCESS CALORIES; Z68.45 - BODY MASS INDEX (BMI) 70 OR GREATER, ADULT Status: Chronic (6) Pickwickian syndrome Code(s): E66.2 - MORBID (SEVERE) OBESITY WITH ALVEOLAR HYPOVENTILATION Status : Chronic (7) Pulmonary embolism Code(s): I26.99 - OTHER PULMONARY EMBOLISM WITHOUT ACUTE COR PULMONALE Status : Suspected Comment: continue heparin drip per DVT/PE protocol (8) Afib Code(s): I48.91 - UNSPECIFIED ATRIAL FIBRILLATION Status: Chronic Qualifiers: Atrial fibrillation type: paroxysmal Qualified Code(s): I48.0 - Paroxysmal atrial fibrillation Comment: On Amiodarone per cardiology, recommeded Digoxin and Cardizem drip. Will zachary Monitor. Platelets stabel count. - Plan cont current plan of care, social service agency director, respiratory therapy, DVT proph w/ lovenox * . Review of Systems - Review of Systems Other: NO ROS as pt is nonverbal. - Medications/Allergies Allergies/Adverse Reactions: Allergies Allergy/AdvReac Type Severity Reaction Status Date / Time No Known Drug Allergies Allergy Verified 03/08/18 14:16 Medications: Current Medications Acetaminophen (Tylenol Elixir) 1,000 mg PER TUBE Q6H PRN PRN Reason: Headache/Fever or Pain Last Admin: 03/22/18 08:53 Dose: 1,000 mg Albuterol/Ipratropium (Duoneb) 3 ml NEB [id number] HEIKE Last Admin: 03/22/18 13:25 Dose: 3 ml Amiodarone HCl (Cordarone) 200 mg PO DAILY [facility] Last Admin: 03/22/18 08:53 Dose: 200 mg Lipase/Protease/Amylase ([place] [id number]) 1 cap FS .PER PROTOCOL PRN PRN Reason: TUBE OCCLUSION PROTOCOL Apixaban (Eliquis) 5 mg PO BID [facility] Last Admin: 03/22/18 08:53 Dose: 5 mg Aspirin (Aspirin Chewable) 81 mg PO DAILY [facility] Last Admin: 03/22/18 08:53 Dose: 81 mg Clonidine (Catapres) 0.1 mg PO Q4H PRN PRN Reason: Systolic BP > 180 Last Admin: 03/20/18 21:05 Dose: 0.1 mg Digoxin (Lanoxin) [facility] Last Admin: 03/22/18 08:53 Dose: 0.125 mg Hydralazine HCl (Apresoline) 10 mg SLOW IVP Q4H PRN PRN Reason: Systolic BP > 180 Last Admin: 03/14/18 17:06 Dose: 10 mg Potassium Chloride 40 meq/ (Sodium Chloride) 270 mls @ 135 mls/hr IVPB ASDIR PRN PRN Reason: FOR SERUM K+ 2.5 - 3.5 Last Admin: 02/28/18 06:18 Dose: 270 mls Potassium Chloride 40 meq/ (Device) 100 mls @ 50 mls/hr IVPB ASDIR PRN PRN Reason: FOR SERUM K+ 2.5 - 3.5 Magnesium Sulfate 1 gm/ Sodium (Chloride) 102 mls @ 102 mls/hr IV PRN PRN PRN Reason: MAG LEVEL 1.4 - 2.0 Magnesium Sulfate 2 gm/ Device 100 mls @ 100 mls/hr IVPB ASDIR PRN PRN Reason: MAGNESIUM < 1.4 Potassium Phosphate 9 mmol/ (Sodium Chloride) 103 mls @ 25.75 mls/hr IVPB ASDIR PRN PRN Reason: Phosphate 1.0-1.8 Potassium Phosphate 12 mmol/ (Sodium Chloride) 254 mls @ 63.5 mls/hr IV ASDIR PRN PRN Reason: Serum phosphate 0.5-0.9 Potassium Phosphate 15 mmol/ (Sodium Chloride) 255 mls @ 63.75 mls/hr IV ASDIR PRN PRN Reason: Serum Phos < 0.5 Diltiazem HCl 125 mg/ Sodium (Chloride) 125 mls @ 0 mls/hr IVPB INF [facility]; Titrate PRN Reason: Protocol Last Admin: 03/21/18 08:45 Dose: 125 mls Losartan Potassium (Cozaar) 25 mg PO DAILY [facility] Last Admin: 03/22/18 08:53 Dose: 25 mg Magnesium Oxide (Magnesium Oxide) 400 mg PO BIDPRN PRN PRN Reason: FOR SERUM MAG 1.4 - 2.0 Magnesium Oxide (Magnesium Oxide) 800 mg PO PRN PRN PRN Reason: FOR SERUM MAG < 1.4 Miscellaneous Medication (Phos-Nak) 1 pkt PO TIDPRN PRN PRN Reason: FOR PHOS LEVEL 1.0 - 1.8 Miscellaneous Medication (Phos-Nak) 2 pkt PO TIDPRN PRN PRN Reason: FOR PHOS LEVEL 0.5 - 1.0 Ondansetron HCl (Zofran Odt) 4 mg PO Q6H PRN PRN Reason: Nausea/Vomiting Ondansetron HCl (Zofran) 4 mg IVP Q6H PRN PRN Reason: Nausea/Vomiting Pantoprazole Sodium (Protonix) 40 mg PER TUBE DAILY [facility] Last Admin: 03/22/18 08:53 Dose: 40 mg Potassium Chloride (K-Dur) 40 meq PO ASDIR PRN PRN Reason: FOR SERUM K+ 2.5 - 3.5 Last Admin: 03/04/18 06:43 Dose: 40 meq Potassium Chloride (Klor-Con) 40 meq PER TUBE ASDIR PRN PRN Reason: FOR SERUM K+ 2.5-3.5 Last Admin: 03/20/18 08:42 Dose: 40 meq Sodium Bicarbonate (Bicarbonate, Sodium) 650 mg PER TUBE .PER PROTOCOL PRN PRN Reason: ENTERAL TUBE OCCLUSION Sodium Chloride (Flush - Normal Saline) 10 ml IVF Q12HR [facility] Last Admin: 03/22/18 08:54 Dose: 10 ml Sodium Chloride (Flush - Normal Saline) 10 ml IVF PRN PRN PRN Reason: Saline Flush Last Admin: 03/14/18 08:28 Dose: 10 ml
--- NOTE | 2018-03-22 14:25 | PDOC.PN ---
- Subjective Encounter Start Date: 03/22/18 Encounter Start Time: 11:15 Patient Is seen today, alert and still on Mech ventilation, on Cardizem Drip. - Objective Resuscitation Status: Resuscitation Status FULL:Full Resuscitation MAR Reviewed: Yes Vital Signs & Weight: Vital Signs (12 hours) Temp Pulse Resp BP Pulse Ox 03/22/18 13:25 71 139/71 03/22/18 12:00 98.7 F 21 H 03/22/18 10:50 67 98/46 L 03/22/18 10:00 21 H 03/22/18 08:53 70 03/22/18 08:00 98.6 F 70 21 H 90 L 03/22/18 07:28 70 115/46 L 03/22/18 06:00 25 H 03/22/18 04:00 99.8 F H 24 H Weight Admit Weight 600 lb Weight 450 lb 6.47 oz Most Recent Monitor Data Heart Rate from ECG 70 NIBP 102/44 NIBP BP-Mean 62 Respiration from ECG 22 SpO2 92 I&O: 03/21/18 03/22/18 03/23/18 06:59 06:59 06:59 Intake Total 1504 1590.1 120 Output Total 1910 1320 365 Balance -406 270.1 -245 Result Diagrams: 03/22/18 03:35 03/22/18 03:35 Radiology Reviewed by me: Yes Phys Exam - Physical Examination Neck: no nodes, no JVD Respiratory: no wheezing, no rales Cardiovascular: RRR, no significant murmur Gastrointestinal: soft, non-tender Musculoskeletal: pulses present, edema present Neurological: non-focal, normal sensation Lymphatic: no nodes Skin: no rash Dx/Plan (1) Acute idiopathic thrombocytopenic purpura Code(s): D69.3 - IMMUNE THROMBOCYTOPENIC PURPURA Status: Resolved Comment: resolved. (2) Acute and chronic respiratory failure Code(s): J96.20 - ACUTE AND CHR RESP FAILURE, UNSP W HYPOXIA OR HYPERCAPNIA Status: Acute Qualifiers: Respiratory failure complication: hypercapnia Qualified Code(s): J96.22 - Acute and chronic respiratory failure with hypercapnia Comment: Pt on Trach back on mecanical ventilation per pulmonary. (3) Acute on chronic diastolic (congestive) heart failure Code(s): I50.33 - ACUTE ON CHRONIC DIASTOLIC (CONGESTIVE) HEART FAILURE Status : Chronic Comment: lasix Diuresis as needed. Currently on Hold due to pre renal azotemia. (4) Hypokalemia Code(s): E87.6 - HYPOKALEMIA Status: Acute Comment: continue electrolyte replacement protocol (5) Morbid obesity with BMI of 70 and over, adult Code(s): E66.01 - MORBID (SEVERE) OBESITY DUE TO EXCESS CALORIES; Z68.45 - BODY MASS INDEX (BMI) 70 OR GREATER, ADULT Status: Chronic (6) Pickwickian syndrome Code(s): E66.2 - MORBID (SEVERE) OBESITY WITH ALVEOLAR HYPOVENTILATION Status : Chronic (7) Pulmonary embolism Code(s): I26.99 - OTHER PULMONARY EMBOLISM WITHOUT ACUTE COR PULMONALE Status : Suspected Comment: continue heparin drip per DVT/PE protocol (8) Afib Code(s): I48.91 - UNSPECIFIED ATRIAL FIBRILLATION Status: Chronic Qualifiers: Atrial fibrillation type: paroxysmal Qualified Code(s): I48.0 - Paroxysmal atrial fibrillation Comment: On Amiodarone per cardiology, recommeded Digoxin and Cardizem drip. Will closley Monitor. Platelets stabel count. - Plan cont current plan of care, social sciences research scientist, respiratory therapy, DVT proph w/ lovenox * . Review of Systems - Review of Systems Other: ROS unable to do as pt is Nonverbal. - Medications/Allergies Allergies/Adverse Reactions: Allergies Allergy/AdvReac Type Severity Reaction Status Date / Time No Known Drug Allergies Allergy Verified 03/08/18 14:16 Medications: Current Medications Acetaminophen (Tylenol Elixir) 1,000 mg PER TUBE Q6H PRN PRN Reason: Headache/Fever or Pain Last Admin: 03/22/18 08:53 Dose: 1,000 mg Albuterol/Ipratropium (Duoneb) 3 ml NEB [id number] HEIKE Last Admin: 03/22/18 13:25 Dose: 3 ml Amiodarone HCl (Cordarone) 200 mg PO DAILY [facility] Last Admin: 03/22/18 08:53 Dose: 200 mg Lipase/Protease/Amylase ([place] [id number]) 1 cap FS .PER PROTOCOL PRN PRN Reason: TUBE OCCLUSION PROTOCOL Apixaban (Eliquis) 5 mg PO BID [facility] Last Admin: 03/22/18 08:53 Dose: 5 mg Aspirin (Aspirin Chewable) 81 mg PO DAILY [facility] Last Admin: 03/22/18 08:53 Dose: 81 mg Clonidine (Catapres) 0.1 mg PO Q4H PRN PRN Reason: Systolic BP > 180 Last Admin: 03/20/18 21:05 Dose: 0.1 mg Digoxin (Lanoxin) [facility] Last Admin: 03/22/18 08:53 Dose: 0.125 mg Hydralazine HCl (Apresoline) 10 mg SLOW IVP Q4H PRN PRN Reason: Systolic BP > 180 Last Admin: 03/14/18 17:06 Dose: 10 mg Potassium Chloride 40 meq/ (Sodium Chloride) 270 mls @ 135 mls/hr IVPB ASDIR PRN PRN Reason: FOR SERUM K+ 2.5 - 3.5 Last Admin: 02/28/18 06:18 Dose: 270 mls Potassium Chloride 40 meq/ (Device) 100 mls @ 50 mls/hr IVPB ASDIR PRN PRN Reason: FOR SERUM K+ 2.5 - 3.5 Magnesium Sulfate 1 gm/ Sodium (Chloride) 102 mls @ 102 mls/hr IV PRN PRN PRN Reason: MAG LEVEL 1.4 - 2.0 Magnesium Sulfate 2 gm/ Device 100 mls @ 100 mls/hr IVPB ASDIR PRN PRN Reason: MAGNESIUM < 1.4 Potassium Phosphate 9 mmol/ (Sodium Chloride) 103 mls @ 25.75 mls/hr IVPB ASDIR PRN PRN Reason: Phosphate 1.0-1.8 Potassium Phosphate 12 mmol/ (Sodium Chloride) 254 mls @ 63.5 mls/hr IV ASDIR PRN PRN Reason: Serum phosphate 0.5-0.9 Potassium Phosphate 15 mmol/ (Sodium Chloride) 255 mls @ 63.75 mls/hr IV ASDIR PRN PRN Reason: Serum Phos < 0.5 Diltiazem HCl 125 mg/ Sodium (Chloride) 125 mls @ 0 mls/hr IVPB INF [facility]; Titrate PRN Reason: Protocol Last Admin: 03/21/18 08:45 Dose: 125 mls Losartan Potassium (Cozaar) 25 mg PO DAILY [facility] Last Admin: 03/22/18 08:53 Dose: 25 mg Magnesium Oxide (Magnesium Oxide) 400 mg PO BIDPRN PRN PRN Reason: FOR SERUM MAG 1.4 - 2.0 Magnesium Oxide (Magnesium Oxide) 800 mg PO PRN PRN PRN Reason: FOR SERUM MAG < 1.4 Miscellaneous Medication (Phos-Nak) 1 pkt PO TIDPRN PRN PRN Reason: FOR PHOS LEVEL 1.0 - 1.8 Miscellaneous Medication (Phos-Nak) 2 pkt PO TIDPRN PRN PRN Reason: FOR PHOS LEVEL 0.5 - 1.0 Ondansetron HCl (Zofran Odt) 4 mg PO Q6H PRN PRN Reason: Nausea/Vomiting Ondansetron HCl (Zofran) 4 mg IVP Q6H PRN PRN Reason: Nausea/Vomiting Pantoprazole Sodium (Protonix) 40 mg PER TUBE DAILY [facility] Last Admin: 03/22/18 08:53 Dose: 40 mg Potassium Chloride (K-Dur) 40 meq PO ASDIR PRN PRN Reason: FOR SERUM K+ 2.5 - 3.5 Last Admin: 03/04/18 06:43 Dose: 40 meq Potassium Chloride (Klor-Con) 40 meq PER TUBE ASDIR PRN PRN Reason: FOR SERUM K+ 2.5-3.5 Last Admin: 03/20/18 08:42 Dose: 40 meq Sodium Bicarbonate (Bicarbonate, Sodium) 650 mg PER TUBE .PER PROTOCOL PRN PRN Reason: ENTERAL TUBE OCCLUSION Sodium Chloride (Flush - Normal Saline) 10 ml IVF Q12HR [facility] Last Admin: 03/22/18 08:54 Dose: 10 ml Sodium Chloride (Flush - Normal Saline) 10 ml IVF PRN PRN PRN Reason: Saline Flush Last Admin: 03/14/18 08:28 Dose: 10 ml
[2018-03-23] MEDS: Acetaminophen 650 MG/20.3 ML UDCUP PER TUBE PRN ×2 (02:54→09:51)
[2018-03-23 04:58] LABS: Anion Gap 8 mmol/L (10-20); BUN (Urea Nitrogen) 40 mg/dL (9.8-20.1); Calc. Creatinine Clearance 196 mL/min (70-130); Calcium 9.1 mg/dL (7.8-10.44); Carbon Dioxide 35 mmol/L (23-31); Chloride 105 mmol/L (98-107); Estimated GFR-MDRD 72; Glucose 104 mg/dL (80-115); Potassium 4.9 mmol/L (3.5-5.1); Sodium 143 mmol/L (136-145)
--- NOTE | 2018-03-23 07:48 | PRG ---
DATE OF SERVICE: 03/23/2018 The patient remains on mechanical ventilation. Apparently had a decent night. PHYSICAL EXAMINATION: VITAL SIGNS: Temperature 98.2, pulse 76, blood pressure 115/47, 24 intake 1557, output 1360. HEENT: Unremarkable. NECK: Trach in good position. LUNGS: Coarse rhonchi. CARDIOVASCULAR: S1, S2 regular. ABDOMEN: Soft, morbidly obese. EXTREMITIES: Decreased edema compared to previous. LABORATORY DATA: Hematocrit 37.6, platelet count 142. Sodium 143, potassium 4.9, chloride 105, CO2 35, BUN 40, creatinine 0.8, glucose 104. ASSESSMENT: 1. Paroxysmal atrial fibrillation. 2. Acute respiratory failure requiring mechanical ventilation. 3. Obesity hypoventilation syndrome. PLAN: Since her cardiac rate is now sinus and her rate is controlled I will go ahead and try to star t weaning her again. We can try a trach collar as tolerated, pressure support ventilation otherwise.
[2018-03-23] MEDS: Apixaban 5 MG TAB PO SCH ×2 (09:07→20:27)
[2018-03-23] MEDS: Digoxin 0.125 MG TAB PO SCH (09:07)
[2018-03-23] MEDS: Pantoprazole 40 MG GRANULES PACKET PER TUBE SCH (09:07)
[2018-03-23] MEDS: Losartan 25 MG TAB PO SCH (09:07)
[2018-03-23] MEDS: Amiodarone 200 MG TAB PO SCH (09:08)
--- NOTE | 2018-03-23 18:40 | EKG ---
Test Reason : Blood Pressure : / mmHG Vent. Rate : 157 BPM Atrial Rate : 096 BPM P-R Int : 000 ms QRS Dur : 112 ms QT Int : 340 ms P-R-T Axes : 000 116 002 degrees QTc Int : 549 ms Probable atrial fibrillation with rapid ventricular response Incomplete right bundle branch block Right ventricular hypertrophy with repolarization abnormality T wave abnormality, consider inferior ischemia Abnormal ECG When compared with ECG of 26-FEB-2018 01:04, (Unconfirmed) Current undetermined rhythm precludes rhythm comparison, needs review ST now depressed in Anterior leads Confirmed by DEANA PARMAR (2) on 03/23/2018 6:40:16 PM Referred By: RACHAEL Confirmed By:DEANA PARMAR
--- NOTE | 2018-03-23 18:40 | EKG ---
Test Reason : A-FIB Blood Pressure : / mmHG Vent. Rate : 159 BPM Atrial Rate : 159 BPM P-R Int : 000 ms QRS Dur : 114 ms QT Int : 306 ms P-R-T Axes : 000 123 001 degrees QTc Int : 497 ms Atrial fibrillation with rapid ventricular response Right bundle branch block Left posterior fascicular block Bifascicular block Abnormal ECG When compared with ECG of 21-MAR-2018 06:09, (Unconfirmed) Previous ECG has undetermined rhythm, needs review Confirmed by DEANA PARMAR (2) on 03/23/2018 6:40:26 PM Referred By: Confirmed By:DEANA PARMAR
--- NOTE | 2018-03-23 22:30 | PDOC.CTH ---
Cardiology Progress Note - Subjective She is doing better. Remains in afib now. - Objective Vital Signs Temp Pulse Pulse Pulse Pulse Resp BP 03/23/18 22:00 21 H 03/23/18 20:00 98.0 F 78 23 H 03/23/18 18:43 73 26 H 03/23/18 18:00 28 H 03/23/18 16:00 98.5 F 24 H 03/23/18 15:21 75 146/68 H 03/23/18 13:39 81 23 H 03/23/18 12:00 98.2 F 03/23/18 11:52 88 86 84 BP BP BP Pulse Ox Pulse Ox Pulse Ox Pulse Ox 03/23/18 22:00 03/23/18 20:00 93 L 03/23/18 18:43 90 L 03/23/18 18:00 03/23/18 16:00 03/23/18 15:21 03/23/18 13:39 91 L 03/23/18 12:00 35 L 03/23/18 11:52 148/63 H 168/62 H 141/64 H 91 L 91 L 92 L Admit Weight 600 lb Weight 376 lb 1.738 oz 03/22/18 03/23/18 03/24/18 06:59 06:59 06:59 Intake Total 1590.1 1557 795 Output Total 1320 1360 775 Balance 270.1 197 20 - Physical Examination General/Neuro: NAD Neck: no JVD present Lungs: CTA, unlabored respirations Heart: RRR Abdomen: NT/ND Extremities: + edema B (2+) - Telemetry Telemetry Rhythm: NSR - Labs Result Diagrams: 03/22/18 03:35 03/23/18 04:36 Troponin/CKMB CK-MB (CK-2) 2.9 ng/mL (0-6.6) 02/26/18 01:05 Troponin I 0.038 ng/mL (< 0.028) H 03/21/18 08:29 - Assessment/Plan 1. Acute hypoxic hypercapnic respiratory insufficiency 2. Acute on chronic RV dysfunction. 3. Acute on chronic diastolic heart failure, improved. 4. Morbid obesity, BMI 103 5. Pickwickian syndrome 6. Afib RVR, back in sinus again. PLAN: - Continue amiodarone. - Will stop digoxin as she is back in afib. - Continue Eliquis for stroke prophylaxis.
[2018-03-24 05:34] LABS: Hemoglobin 10.4 g/dL (12.0-16.0); Platelet Count 152 thou/uL (130-400)
[2018-03-24 05:40] LABS: Anion Gap 6 mmol/L (10-20); BUN (Urea Nitrogen) 39 mg/dL (9.8-20.1); Calc. Creatinine Clearance 212 mL/min (70-130); Calcium 8.8 mg/dL (7.8-10.44); Carbon Dioxide 36 mmol/L (23-31); Chloride 105 mmol/L (98-107); Estimated GFR-MDRD 79; Glucose 101 mg/dL (80-115); Sodium 142 mmol/L (136-145)
--- NOTE | 2018-03-24 08:12 | PRG ---
DATE OF SERVICE: 03/24/2018 The patient remains in the CCU. She is intermittently requiring mechanical ventilation because she g ets tired shortly after being put on trach collar. PHYSICAL EXAMINATION: VITAL SIGNS: Temperature is 98.1, pulse 73, blood pressure 115/49. 24-hour intake 3, output 1125 . HEENT: Unremarkable. NECK: Trach in good position. A lot of secretions. CARDIAC: S1 and S2 regular. LUNGS: Coarse breath sounds. GI: Abdomen is soft, obese, nontender. EXTREMITIES: Brawny edema throughout. LABORATORY DATA: Hemoglobin 10, hematocrit 36.2, platelet count 152. Sodium 142, potassium 5, chlor sis 105, CO2 36, BUN 39, creatinine 0.7, glucose 101. ASSESSMENT: 1. Obesity hypoventilation syndrome. 2. Status post tracheostomy for acute on chronic respiratory failure. 3. Slowly increasing potassium level. PLAN: Continue trach collar trials and hopefully can extend time off the ventilator. Prognosis for functional recovery seems uncertain at this point. She is a challenge in regards to placement due to her lack of insurance and lack of residency.
[2018-03-24] MEDS: Losartan 25 MG TAB PO SCH (11:32)
[2018-03-24] MEDS: Acetaminophen 650 MG/20.3 ML UDCUP PER TUBE PRN (11:33)
[2018-03-24] MEDS: Amiodarone 200 MG TAB PO SCH (11:33)
[2018-03-24] MEDS: Pantoprazole 40 MG GRANULES PACKET PER TUBE SCH (11:33)
[2018-03-24] MEDS: Ondansetron ODT 4 MG TAB PO PRN (11:57)
[2018-03-24] MEDS: Apixaban 5 MG TAB PO SCH ×2 (11:57→20:21)
--- NOTE | 2018-03-24 15:40 | PDOC.PN ---
- Subjective Encounter Start Date: 03/24/18 Encounter Start Time: 10:00 Patient is off of Vent again today, Her Afib is resolved now Sinus. She is Alert and awake. - Objective Resuscitation Status: Resuscitation Status FULL:Full Resuscitation MAR Reviewed: Yes Vital Signs & Weight: Vital Signs (12 hours) Temp Pulse Pulse Pulse Resp BP BP 03/24/18 12:25 83 24 H 03/24/18 12:00 98.0 F 03/24/18 10:28 85 82 125/56 L 121/53 L 03/24/18 08:00 98.2 F 83 24 H 03/24/18 07:27 03/24/18 07:24 73 17 03/24/18 07:00 98.2 F 03/24/18 06:00 21 H 03/24/18 04:00 98.1 F 19 Pulse Ox Pulse Ox Pulse Ox 03/24/18 12:25 90 L 03/24/18 12:00 03/24/18 10:28 89 L 89 L 03/24/18 08:00 92 L 03/24/18 07:27 90 L 03/24/18 07:24 90 L 03/24/18 07:00 03/24/18 06:00 03/24/18 04:00 Weight Admit Weight 600 lb Weight 376 lb 1.738 oz Most Recent Monitor Data Heart Rate from ECG 84 NIBP 118/64 NIBP BP-Mean 82 Respiration from ECG 10 SpO2 90 I&O: 03/23/18 03/24/18 03/25/18 06:59 06:59 06:59 Intake Total 1557 2093 60 Output Total 1360 1125 825 Balance 197 968 -765 Result Diagrams: 03/24/18 05:14 03/24/18 05:14 Radiology Reviewed by me: Yes Phys Exam - Physical Examination HEENT: PERRLA, moist MMs Neck: no nodes, no JVD Respiratory: no wheezing, no rales Cardiovascular: RRR, no significant murmur Gastrointestinal: soft Musculoskeletal: edema present Neurological: non-focal, normal sensation Lymphatic: no nodes Dx/Plan (1) Acute idiopathic thrombocytopenic purpura Code(s): D69.3 - IMMUNE THROMBOCYTOPENIC PURPURA Status: Resolved Comment: resolved. (2) Acute and chronic respiratory failure Code(s): J96.20 - ACUTE AND CHR RESP FAILURE, UNSP W HYPOXIA OR HYPERCAPNIA Status: Acute Qualifiers: Respiratory failure complication: hypercapnia Qualified Code(s): J96.22 - Acute and chronic respiratory failure with hypercapnia Comment: Pt on Trach back off mecanical ventilation now. (3) Acute on chronic diastolic (congestive) heart failure Code(s): I50.33 - ACUTE ON CHRONIC DIASTOLIC (CONGESTIVE) HEART FAILURE Status : Chronic Comment: lasix Diuresis as needed. Currently on Hold due to pre renal azotemia. (4) Hypokalemia Code(s): E87.6 - HYPOKALEMIA Status: Acute Comment: continue electrolyte replacement protocol (5) Morbid obesity with BMI of 70 and over, adult Code(s): E66.01 - MORBID (SEVERE) OBESITY DUE TO EXCESS CALORIES; Z68.45 - BODY MASS INDEX (BMI) 70 OR GREATER, ADULT Status: Chronic (6) Pickwickian syndrome Code(s): E66.2 - MORBID (SEVERE) OBESITY WITH ALVEOLAR HYPOVENTILATION Status : Chronic (7) Pulmonary embolism Code(s): I26.99 - OTHER PULMONARY EMBOLISM WITHOUT ACUTE COR PULMONALE Status : Suspected Comment: continue heparin drip per DVT/PE protocol (8) Afib Code(s): I48.91 - UNSPECIFIED ATRIAL FIBRILLATION Status: Chronic Qualifiers: Atrial fibrillation type: paroxysmal Qualified Code(s): I48.0 - Paroxysmal atrial fibrillation Comment: On Amiodarone per cardiology, recommeded Digoxin and Cardizem drip. Will closley Monitor. Platelets stabel count. sinus now. - Plan cont current plan of care, hospital social worker, DVT proph w/lovenox * . Review of Systems - Review of Systems Other: no ROS as pt is non verbal. - Medications/Allergies Allergies/Adverse Reactions: Allergies Allergy/AdvReac Type Severity Reaction Status Date / Time No Known Drug Allergies Allergy Verified 03/08/18 14:16 Medications: Current Medications Acetaminophen (Tylenol Elixir) 1,000 mg PER TUBE Q6H PRN PRN Reason: Headache/Fever or Pain Last Admin: 03/24/18 11:33 Dose: 1,000 mg Albuterol/Ipratropium (Duoneb) 3 ml NEB [id number] [facility] Last Admin: 03/24/18 12:25 Dose: 3 ml Amiodarone HCl (Cordarone) 200 mg PO DAILY [facility] Last Admin: 03/24/18 11:33 Dose: 200 mg Lipase/Protease/Amylase ([place] [id number]) 1 cap FS .PER PROTOCOL PRN PRN Reason: TUBE OCCLUSION PROTOCOL Apixaban (Eliquis) 5 mg PO BID [facility] Last Admin: 03/24/18 11:57 Dose: 5 mg Aspirin (Aspirin Chewable) 81 mg PO DAILY [facility] Last Admin: 03/24/18 11:32 Dose: 81 mg Clonidine (Catapres) 0.1 mg PO Q4H PRN PRN Reason: Systolic BP > 180 Last Admin: 03/20/18 21:05 Dose: 0.1 mg Hydralazine HCl (Apresoline) 10 mg SLOW IVP Q4H PRN PRN Reason: Systolic BP > 180 Last Admin: 03/14/18 17:06 Dose: 10 mg Potassium Chloride 40 meq/ (Sodium Chloride) 270 mls @ 135 mls/hr IVPB ASDIR PRN PRN Reason: FOR SERUM K+ 2.5 - 3.5 Last Admin: 02/28/18 06:18 Dose: 270 mls Potassium Chloride 40 meq/ (Device) 100 mls @ 50 mls/hr IVPB ASDIR PRN PRN Reason: FOR SERUM K+ 2.5 - 3.5 Magnesium Sulfate 1 gm/ Sodium (Chloride) 102 mls @ 102 mls/hr IV PRN PRN PRN Reason: MAG LEVEL 1.4 - 2.0 Magnesium Sulfate 2 gm/ Device 100 mls @ 100 mls/hr IVPB ASDIR PRN PRN Reason: MAGNESIUM < 1.4 Potassium Phosphate 9 mmol/ (Sodium Chloride) 103 mls @ 25.75 mls/hr IVPB ASDIR PRN PRN Reason: Phosphate 1.0-1.8 Potassium Phosphate 12 mmol/ (Sodium Chloride) 254 mls @ 63.5 mls/hr IV ASDIR PRN PRN Reason: Serum phosphate 0.5-0.9 Potassium Phosphate 15 mmol/ (Sodium Chloride) 255 mls @ 63.75 mls/hr IV ASDIR PRN PRN Reason: Serum Phos < 0.5 Losartan Potassium (Cozaar) 25 mg PO DAILY [facility] Last Admin: 03/24/18 11:32 Dose: 25 mg Magnesium Oxide (Magnesium Oxide) 400 mg PO BIDPRN PRN PRN Reason: FOR SERUM MAG 1.4 - 2.0 Magnesium Oxide (Magnesium Oxide) 800 mg PO PRN PRN PRN Reason: FOR SERUM MAG < 1.4 Miscellaneous Medication (Phos-Nak) 1 pkt PO TIDPRN PRN PRN Reason: FOR PHOS LEVEL 1.0 - 1.8 Miscellaneous Medication (Phos-Nak) 2 pkt PO TIDPRN PRN PRN Reason: FOR PHOS LEVEL 0.5 - 1.0 Ondansetron HCl (Zofran Odt) 4 mg PO Q6H PRN PRN Reason: Nausea/Vomiting Last Admin: 03/24/18 11:57 Dose: 4 mg Ondansetron HCl (Zofran) 4 mg IVP Q6H PRN PRN Reason: Nausea/Vomiting Pantoprazole Sodium (Protonix) 40 mg PER TUBE DAILY [facility] Last Admin: 03/24/18 11:33 Dose: 40 mg Potassium Chloride (K-Dur) 40 meq PO ASDIR PRN PRN Reason: FOR SERUM K+ 2.5 - 3.5 Last Admin: 03/04/18 06:43 Dose: 40 meq Potassium Chloride (Klor-Con) 40 meq PER TUBE ASDIR PRN PRN Reason: FOR SERUM K+ 2.5-3.5 Last Admin: 03/20/18 08:42 Dose: 40 meq Sodium Bicarbonate (Bicarbonate, Sodium) 650 mg PER TUBE .PER PROTOCOL PRN PRN Reason: ENTERAL TUBE OCCLUSION Sodium Chloride (Flush - Normal Saline) 10 ml IVF Q12HR [facility] Last Admin: 03/24/18 11:33 Dose: 10 ml Sodium Chloride (Flush - Normal Saline) 10 ml IVF PRN PRN PRN Reason: Saline Flush Last Admin: 03/14/18 08:28 Dose: 10 ml
--- NOTE | 2018-03-24 17:24 | PDOC.CTH ---
Cardiology Progress Note - Subjective No new issues. - Objective Vital Signs Temp Pulse Pulse Pulse Resp BP BP 03/24/18 12:25 83 24 H 03/24/18 12:00 98.0 F 03/24/18 10:28 85 82 125/56 L 121/53 L 03/24/18 08:00 98.2 F 83 24 H 03/24/18 07:27 03/24/18 07:24 73 17 03/24/18 07:00 98.2 F 03/24/18 06:00 21 H Pulse Ox Pulse Ox Pulse Ox 03/24/18 12:25 90 L 03/24/18 12:00 03/24/18 10:28 89 L 89 L 03/24/18 08:00 92 L 03/24/18 07:27 90 L 03/24/18 07:24 90 L 03/24/18 07:00 03/24/18 06:00 Admit Weight 600 lb Weight 376 lb 1.738 oz 03/23/18 03/24/18 03/25/18 06:59 06:59 06:59 Intake Total 1557 2093 60 Output Total 1360 1125 825 Balance 197 968 -765 - Physical Examination General/Neuro: NAD Neck: no JVD present Lungs: CTA, unlabored respirations Heart: RRR Abdomen: NT/ND Extremities: + edema B (2+) - Telemetry Telemetry Rhythm: NSR, PVC's - Labs Result Diagrams: 03/24/18 05:14 03/24/18 05:14 Troponin/CKMB CK-MB (CK-2) 2.9 ng/mL (0-6.6) 02/26/18 01:05 Troponin I 0.038 ng/mL (< 0.028) H 03/21/18 08:29 - Assessment/Plan 1. Acute hypoxic hypercapnic respiratory insufficiency. Improved. s/p trach. 2. Acute on chronic RV dysfunction. 3. Acute on chronic diastolic heart failure, improved. 4. Morbid obesity, BMI 103 5. Pickwickian syndrome 6. Afib RVR, maintaining sinus again. PLAN: - Continue amiodarone. - Continue Eliquis for stroke prophylaxis.
--- NOTE | 2018-03-24 22:30 | PDOC.PN ---
- Subjective Encounter Start Date: 03/24/18 Encounter Start Time: 15:00 Brandon is seen today, alert and oriented. She was trying to say she speaks 4 languages, [place] Islander,Macedonian, Citizen Of [place] and vietnamese. She looked more comfortable today. - Objective Resuscitation Status: Resuscitation Status FULL:Full Resuscitation MAR Reviewed: Yes Vital Signs & Weight: Vital Signs (12 hours) Temp Pulse Pulse Pulse Resp BP BP 03/24/18 20:00 97.4 F L 03/24/18 18:47 77 22 H 03/24/18 16:00 98.7 F 03/24/18 12:25 83 24 H 03/24/18 12:00 98.0 F 03/24/18 10:28 85 82 125/56 L 121/53 L Pulse Ox Pulse Ox Pulse Ox 03/24/18 20:00 03/24/18 18:47 92 L 03/24/18 16:00 03/24/18 12:25 90 L 03/24/18 12:00 03/24/18 10:28 89 L 89 L Weight Admit Weight 600 lb Weight 376 lb 1.738 oz Most Recent Monitor Data Heart Rate from ECG 75 NIBP 138/60 NIBP BP-Mean 84 Respiration from ECG 19 SpO2 94 I&O: 03/23/18 03/24/18 03/25/18 06:59 06:59 06:59 Intake Total 1557 2093 655 Output Total 1360 1125 1105 Balance 197 968 -450 Result Diagrams: 03/24/18 05:14 03/24/18 05:14 Phys Exam - Physical Examination HEENT: PERRLA, moist MMs Neck: no nodes, no JVD Respiratory: no wheezing, no rales Cardiovascular: RRR, no significant murmur Gastrointestinal: soft Musculoskeletal: pulses present, edema present Neurological: non-focal, normal sensation Psychiatric: normal affect, A&O x 3 Dx/Plan (1) Acute idiopathic thrombocytopenic purpura Code(s): D69.3 - IMMUNE THROMBOCYTOPENIC PURPURA Status: Resolved Comment: resolved. (2) Acute and chronic respiratory failure Code(s): J96.20 - ACUTE AND CHR RESP FAILURE, UNSP W HYPOXIA OR HYPERCAPNIA Status: Acute Qualifiers: Respiratory failure complication: hypercapnia Qualified Code(s): J96.22 - Acute and chronic respiratory failure with hypercapnia Comment: Pt on Trach back off mecanical ventilation now. (3) Acute on chronic diastolic (congestive) heart failure Code(s): I50.33 - ACUTE ON CHRONIC DIASTOLIC (CONGESTIVE) HEART FAILURE Status : Chronic Comment: lasix Diuresis as needed. Currently on Hold due to pre renal azotemia. (4) Hypokalemia Code(s): E87.6 - HYPOKALEMIA Status: Acute Comment: continue electrolyte replacement protocol (5) Morbid obesity with BMI of 70 and over, adult Code(s): E66.01 - MORBID (SEVERE) OBESITY DUE TO EXCESS CALORIES; Z68.45 - BODY MASS INDEX (BMI) 70 OR GREATER, ADULT Status: Chronic (6) Pickwickian syndrome Code(s): E66.2 - MORBID (SEVERE) OBESITY WITH ALVEOLAR HYPOVENTILATION Status : Chronic (7) Pulmonary embolism Code(s): I26.99 - OTHER PULMONARY EMBOLISM WITHOUT ACUTE COR PULMONALE Status : Suspected Comment: continue heparin drip per DVT/PE protocol (8) Afib Code(s): I48.91 - UNSPECIFIED ATRIAL FIBRILLATION Status: Chronic Qualifiers: Atrial fibrillation type: paroxysmal Qualified Code(s): I48.0 - Paroxysmal atrial fibrillation Comment: On Amiodarone per cardiology, recommeded Digoxin and Cardizem drip. Will closley Monitor. Platelets stabel count. sinus now. - Plan cont current plan of care, koch catheter, social service assistant, DVT proph w/lovenox * . Review of Systems - Review of Systems Other: Unable to get ROS due to Trach - Medications/Allergies Allergies/Adverse Reactions: Allergies Allergy/AdvReac Type Severity Reaction Status Date / Time No Known Drug Allergies Allergy Verified 03/08/18 14:16 Medications: Current Medications Acetaminophen (Tylenol Elixir) 1,000 mg PER TUBE Q6H PRN PRN Reason: Headache/Fever or Pain Last Admin: 03/24/18 11:33 Dose: 1,000 mg Albuterol/Ipratropium (Duoneb) 3 ml NEB [id number] HEIKE Last Admin: 03/24/18 18:47 Dose: 3 ml Amiodarone HCl (Cordarone) 200 mg PO DAILY [facility] Last Admin: 03/24/18 11:33 Dose: 200 mg Lipase/Protease/Amylase ([place] [id number]) 1 cap FS .PER PROTOCOL PRN PRN Reason: TUBE OCCLUSION PROTOCOL Apixaban (Eliquis) 5 mg PO BID [facility] Last Admin: 03/24/18 20:21 Dose: 5 mg Aspirin (Aspirin Chewable) 81 mg PO DAILY [facility] Last Admin: 03/24/18 11:32 Dose: 81 mg Clonidine (Catapres) 0.1 mg PO Q4H PRN PRN Reason: Systolic BP > 180 Last Admin: 03/20/18 21:05 Dose: 0.1 mg Hydralazine HCl (Apresoline) 10 mg SLOW IVP Q4H PRN PRN Reason: Systolic BP > 180 Last Admin: 03/14/18 17:06 Dose: 10 mg Potassium Chloride 40 meq/ (Sodium Chloride) 270 mls @ 135 mls/hr IVPB ASDIR PRN PRN Reason: FOR SERUM K+ 2.5 - 3.5 Last Admin: 02/28/18 06:18 Dose: 270 mls Potassium Chloride 40 meq/ (Device) 100 mls @ 50 mls/hr IVPB ASDIR PRN PRN Reason: FOR SERUM K+ 2.5 - 3.5 Magnesium Sulfate 1 gm/ Sodium (Chloride) 102 mls @ 102 mls/hr IV PRN PRN PRN Reason: MAG LEVEL 1.4 - 2.0 Magnesium Sulfate 2 gm/ Device 100 mls @ 100 mls/hr IVPB ASDIR PRN PRN Reason: MAGNESIUM < 1.4 Potassium Phosphate 9 mmol/ (Sodium Chloride) 103 mls @ 25.75 mls/hr IVPB ASDIR PRN PRN Reason: Phosphate 1.0-1.8 Potassium Phosphate 12 mmol/ (Sodium Chloride) 254 mls @ 63.5 mls/hr IV ASDIR PRN PRN Reason: Serum phosphate 0.5-0.9 Potassium Phosphate 15 mmol/ (Sodium Chloride) 255 mls @ 63.75 mls/hr IV ASDIR PRN PRN Reason: Serum Phos < 0.5 Losartan Potassium (Cozaar) 25 mg PO DAILY [facility] Last Admin: 03/24/18 11:32 Dose: 25 mg Magnesium Oxide (Magnesium Oxide) 400 mg PO BIDPRN PRN PRN Reason: FOR SERUM MAG 1.4 - 2.0 Magnesium Oxide (Magnesium Oxide) 800 mg PO PRN PRN PRN Reason: FOR SERUM MAG < 1.4 Miscellaneous Medication (Phos-Nak) 1 pkt PO TIDPRN PRN PRN Reason: FOR PHOS LEVEL 1.0 - 1.8 Miscellaneous Medication (Phos-Nak) 2 pkt PO TIDPRN PRN PRN Reason: FOR PHOS LEVEL 0.5 - 1.0 Ondansetron HCl (Zofran Odt) 4 mg PO Q6H PRN PRN Reason: Nausea/Vomiting Last Admin: 03/24/18 11:57 Dose: 4 mg Ondansetron HCl (Zofran) 4 mg IVP Q6H PRN PRN Reason: Nausea/Vomiting Pantoprazole Sodium (Protonix) 40 mg PER TUBE DAILY [facility] Last Admin: 03/24/18 11:33 Dose: 40 mg Potassium Chloride (K-Dur) 40 meq PO ASDIR PRN PRN Reason: FOR SERUM K+ 2.5 - 3.5 Last Admin: 03/04/18 06:43 Dose: 40 meq Potassium Chloride (Klor-Con) 40 meq PER TUBE ASDIR PRN PRN Reason: FOR SERUM K+ 2.5-3.5 Last Admin: 03/20/18 08:42 Dose: 40 meq Sodium Bicarbonate (Bicarbonate, Sodium) 650 mg PER TUBE .PER PROTOCOL PRN PRN Reason: ENTERAL TUBE OCCLUSION Sodium Chloride (Flush - Normal Saline) 10 ml IVF Q12HR [facility] Last Admin: 03/24/18 20:22 Dose: 10 ml Sodium Chloride (Flush - Normal Saline) 10 ml IVF PRN PRN PRN Reason: Saline Flush Last Admin: 03/14/18 08:28 Dose: 10 ml
--- NOTE | 2018-03-25 07:22 | PDOC.PULPN ---
Progress Note: Subj/Obj - Subjective Date: 03/25/18 Time: 07:21 Narrative: Sleeping. No acute changes - ROS ROS unobtainable: other (due to trach) - Objective Allergies/Adverse Reactions: Allergies Allergy/AdvReac Type Severity Reaction Status Date / Time No Known Drug Allergies Allergy Verified 03/08/18 14:16 MAR Reviewed: Yes Vital Signs: Vital Signs Temp 98.3 F 03/25/18 04:00 Pulse 77 03/25/18 06:53 Resp 24 H 03/25/18 06:53 BP 125/56 L 03/24/18 10:28 Pulse Ox 89 L 03/25/18 06:57 Intake & Output 03/24/18 03/25/18 03/25/18 18:59 06:59 18:59 Intake Total 415 816 Output Total 1005 475 Balance -590 341 Weight 376 lb 1.738 oz Intake: Tube Feeding 325 576 Tube Irrigant 90 240 Output: Gastric Drainage 100 Output, Tolbert 905 475 Other: Voiding Method Indwelling Catheter Indwelling Catheter Progress Note: Exam - Physical Exam Constitutional: NAD HEENT: PERRLA, sclera anicteric Neck: no nodes, no JVD Deviation from normal: trach site ok Cardiovascular: RRR Focused Respiratory Location: decreased breath sounds: Right, Left Gastrointestinal: soft, non-tender Musculoskeletal: edema present Neurological: non-focal Lymphatic: no nodes Skin: no rash Progress Note: Data - Labs Result Diagrams: 03/24/18 05:14 03/24/18 05:14 Progress Note: A/P - Problems (1) Acute and chronic respiratory failure Current Visit: Yes Status: Acute Code(s): J96.20 - ACUTE AND CHR RESP FAILURE, UNSP W HYPOXIA OR HYPERCAPNIA Qualifiers: Respiratory failure complication: hypercapnia Qualified Code(s): J96.22 - Acute and chronic respiratory failure with hypercapnia (2) Acute on chronic diastolic (congestive) heart failure Current Visit: Yes Status: Chronic Code(s): I50.33 - ACUTE ON CHRONIC DIASTOLIC (CONGESTIVE) HEART FAILURE (3) Morbid obesity with BMI of 70 and over, adult Current Visit: Yes Status: Chronic Code(s): E66.01 - MORBID (SEVERE) OBESITY DUE TO EXCESS CALORIES; Z68.45 - BODY MASS INDEX (BMI) 70 OR GREATER, ADULT (4) Pickwickian syndrome Current Visit: Yes Status: Chronic Code(s): E66.2 - MORBID (SEVERE) OBESITY WITH ALVEOLAR HYPOVENTILATION - Time Spent with Patient Time (minutes): 30 (cc time) - Plan Plan: Continue trach collar trials Start an antidepressant restart diuretics labs tomorrow
[2018-03-25 07:27] LABS: Anion Gap 10 mmol/L (10-20); BUN (Urea Nitrogen) 41 mg/dL (9.8-20.1); Calc. Creatinine Clearance 194 mL/min (70-130); Calcium 9.3 mg/dL (7.8-10.44); Carbon Dioxide 35 mmol/L (23-31); Chloride 104 mmol/L (98-107); Estimated GFR-MDRD 71; Glucose 92 mg/dL (80-115); Potassium 5.3 mmol/L (3.5-5.1); Sodium 144 mmol/L (136-145)
[2018-03-25] MEDS: Amiodarone 200 MG TAB PO SCH (09:32)
[2018-03-25] MEDS: Furosemide 40 MG/4 ML VIAL SLOW IVP SCH (09:32)
[2018-03-25] MEDS: Losartan 25 MG TAB PO SCH (09:32)
[2018-03-25] MEDS: Pantoprazole 40 MG GRANULES PACKET PER TUBE SCH (09:32)
[2018-03-25] MEDS: Apixaban 5 MG TAB PO SCH ×2 (11:27→20:12)
--- NOTE | 2018-03-25 13:26 | PDOC.PN ---
- Subjective Encounter Start Date: 03/25/18 Encounter Start Time: 12:15 Subjective: awake, on trach collar - Objective Resuscitation Status: Resuscitation Status FULL:Full Resuscitation MAR Reviewed: Yes Vital Signs & Weight: Vital Signs (12 hours) Temp Pulse Resp Pulse Ox 03/25/18 12:00 98.1 F 03/25/18 11:42 79 20 88 L 03/25/18 08:00 98.7 F 82 22 H 86 L 03/25/18 07:00 98.7 F 22 H 03/25/18 06:57 89 L 03/25/18 06:53 77 24 H 89 L 03/25/18 06:00 24 H 03/25/18 04:00 98.3 F 20 03/25/18 02:00 21 H Weight Admit Weight 600 lb Weight 376 lb 1.738 oz Most Recent Monitor Data Heart Rate from ECG 79 NIBP 110/47 NIBP BP-Mean 65 Respiration from ECG 23 SpO2 87 I&O: 03/24/18 03/25/18 03/26/18 06:59 06:59 06:59 Intake Total 2093 1231 60 Output Total 1125 1480 775 Balance 342 -747 -469 Result Diagrams: 03/24/18 05:14 03/25/18 06:45 Phys Exam - Physical Examination HEENT: PERRLA, moist MMs trach+ Respiratory: no wheezing, no rales Cardiovascular: RRR, no significant murmur Gastrointestinal: soft, non-tender, positive bowel sounds peg+ Musculoskeletal: no edema, pulses present Neurological: non-focal, moves all 4 limbs Psychiatric: A&O x 3 Dx/Plan (1) Acute and chronic respiratory failure Code(s): J96.20 - ACUTE AND CHR RESP FAILURE, UNSP W HYPOXIA OR HYPERCAPNIA Status: Acute Qualifiers: Respiratory failure complication: hypoxia and hypercapnia Qualified Code(s) : J96.21 - Acute and chronic respiratory failure with hypoxia; J96.22 - Acute and chronic respiratory failure with hypercapnia; J96.22 - Acute and chronic respiratory failure with hypercapnia; J96.22 - Acute and chronic respiratory failure with hypercapnia (2) CAROL (obstructive sleep apnea) Code(s): G47.33 - OBSTRUCTIVE SLEEP APNEA (ADULT) (PEDIATRIC) Status: Chronic (3) Afib Code(s): I48.91 - UNSPECIFIED ATRIAL FIBRILLATION Status: Chronic Qualifiers: Atrial fibrillation type: paroxysmal Qualified Code(s): I48.0 - Paroxysmal atrial fibrillation (4) Acute on chronic diastolic (congestive) heart failure Code(s): I50.33 - ACUTE ON CHRONIC DIASTOLIC (CONGESTIVE) HEART FAILURE Status : Chronic (5) Morbid obesity with BMI of 70 and over, adult Code(s): E66.01 - MORBID (SEVERE) OBESITY DUE TO EXCESS CALORIES; Z68.45 - BODY MASS INDEX (BMI) 70 OR GREATER, ADULT Status: Chronic (6) Pickwickian syndrome Code(s): E66.2 - MORBID (SEVERE) OBESITY WITH ALVEOLAR HYPOVENTILATION Status : Chronic (7) Status post tracheostomy Code(s): Z93.0 - TRACHEOSTOMY STATUS Status: Acute Comment: done on 03/09/18 (8) S/P percutaneous endoscopic gastrostomy (PEG) tube placement Code(s): Z93.1 - GASTROSTOMY STATUS Status: Acute Comment: done on 03/09/18 - Plan is on vent at night and trach collar during day -: is slowly coming off vent -: PT to aggressively pursue mobilization, is severely deconditioned -: post discharge option is home hence aggressive PT is needed -: is on eliquis, amiodaron, cozaar, asp * . Review of Systems - Medications/Allergies Allergies/Adverse Reactions: Allergies Allergy/AdvReac Type Severity Reaction Status Date / Time No Known Drug Allergies Allergy Verified 03/08/18 14:16 Medications: Current Medications Acetaminophen (Tylenol Elixir) 1,000 mg PER TUBE Q6H PRN PRN Reason: Headache/Fever or Pain Last Admin: 03/24/18 11:33 Dose: 1,000 mg Albuterol/Ipratropium (Duoneb) 3 ml NEB [id number] HEIKE Last Admin: 03/25/18 11:42 Dose: 3 ml Amiodarone HCl (Cordarone) 200 mg PO DAILY [facility] Last Admin: 03/25/18 09:32 Dose: 200 mg Lipase/Protease/Amylase ([place] [id number]) 1 cap FS .PER PROTOCOL PRN PRN Reason: TUBE OCCLUSION PROTOCOL Apixaban (Eliquis) 5 mg PO BID [facility] Last Admin: 03/25/18 11:27 Dose: 5 mg Aspirin (Aspirin Chewable) 81 mg PO DAILY [facility] Last Admin: 03/25/18 09:32 Dose: 81 mg Clonidine (Catapres) 0.1 mg PO Q4H PRN PRN Reason: Systolic BP > 180 Last Admin: 03/20/18 21:05 Dose: 0.1 mg Furosemide (Lasix) 40 mg SLOW IVP DAILY [facility] Last Admin: 03/25/18 09:32 Dose: 40 mg Hydralazine HCl (Apresoline) 10 mg SLOW IVP Q4H PRN PRN Reason: Systolic BP > 180 Last Admin: 03/14/18 17:06 Dose: 10 mg Potassium Chloride 40 meq/ (Sodium Chloride) 270 mls @ 135 mls/hr IVPB ASDIR PRN PRN Reason: FOR SERUM K+ 2.5 - 3.5 Last Admin: 02/28/18 06:18 Dose: 270 mls Potassium Chloride 40 meq/ (Device) 100 mls @ 50 mls/hr IVPB ASDIR PRN PRN Reason: FOR SERUM K+ 2.5 - 3.5 Magnesium Sulfate 1 gm/ Sodium (Chloride) 102 mls @ 102 mls/hr IV PRN PRN PRN Reason: MAG LEVEL 1.4 - 2.0 Magnesium Sulfate 2 gm/ Device 100 mls @ 100 mls/hr IVPB ASDIR PRN PRN Reason: MAGNESIUM < 1.4 Potassium Phosphate 9 mmol/ (Sodium Chloride) 103 mls @ 25.75 mls/hr IVPB ASDIR PRN PRN Reason: Phosphate 1.0-1.8 Potassium Phosphate 12 mmol/ (Sodium Chloride) 254 mls @ 63.5 mls/hr IV ASDIR PRN PRN Reason: Serum phosphate 0.5-0.9 Potassium Phosphate 15 mmol/ (Sodium Chloride) 255 mls @ 63.75 mls/hr IV ASDIR PRN PRN Reason: Serum Phos < 0.5 Losartan Potassium (Cozaar) 25 mg PO DAILY [facility] Last Admin: 03/25/18 09:32 Dose: 25 mg Magnesium Oxide (Magnesium Oxide) 400 mg PO BIDPRN PRN PRN Reason: FOR SERUM MAG 1.4 - 2.0 Magnesium Oxide (Magnesium Oxide) 800 mg PO PRN PRN PRN Reason: FOR SERUM MAG < 1.4 Miscellaneous Medication (Phos-Nak) 1 pkt PO TIDPRN PRN PRN Reason: FOR PHOS LEVEL 1.0 - 1.8 Miscellaneous Medication (Phos-Nak) 2 pkt PO TIDPRN PRN PRN Reason: FOR PHOS LEVEL 0.5 - 1.0 Ondansetron HCl (Zofran Odt) 4 mg PO Q6H PRN PRN Reason: Nausea/Vomiting Last Admin: 03/24/18 11:57 Dose: 4 mg Ondansetron HCl (Zofran) 4 mg IVP Q6H PRN PRN Reason: Nausea/Vomiting Pantoprazole Sodium (Protonix) 40 mg PER TUBE DAILY [facility] Last Admin: 03/25/18 09:32 Dose: 40 mg Potassium Chloride (K-Dur) 40 meq PO ASDIR PRN PRN Reason: FOR SERUM K+ 2.5 - 3.5 Last Admin: 03/04/18 06:43 Dose: 40 meq Potassium Chloride (Klor-Con) 40 meq PER TUBE ASDIR PRN PRN Reason: FOR SERUM K+ 2.5-3.5 Last Admin: 03/20/18 08:42 Dose: 40 meq Sertraline HCl (Zoloft) 50 mg PER TUBE DAILY [facility] Last Admin: 03/25/18 09:32 Dose: 50 mg Sodium Bicarbonate (Bicarbonate, Sodium) 650 mg PER TUBE .PER PROTOCOL PRN PRN Reason: ENTERAL TUBE OCCLUSION Sodium Chloride (Flush - Normal Saline) 10 ml IVF Q12HR [facility] Last Admin: 03/25/18 09:33 Dose: 10 ml Sodium Chloride (Flush - Normal Saline) 10 ml IVF PRN PRN PRN Reason: Saline Flush Last Admin: 03/14/18 08:28 Dose: 10 ml
[2018-03-25] MEDS: Acetaminophen 650 MG/20.3 ML UDCUP PER TUBE PRN (16:48)
--- NOTE | 2018-03-25 17:40 | PDOC.CTH ---
Cardiology Progress Note - Subjective No new issues. - Objective Vital Signs Temp Pulse Resp Pulse Ox 03/25/18 16:00 98.4 F 03/25/18 12:00 98.1 F 03/25/18 11:42 79 20 88 L 03/25/18 08:00 98.7 F 82 22 H 86 L 03/25/18 07:00 98.7 F 22 H 03/25/18 06:57 89 L 03/25/18 06:53 77 24 H 89 L 03/25/18 06:00 24 H Admit Weight 600 lb Weight 376 lb 1.738 oz 03/24/18 03/25/18 03/26/18 06:59 06:59 06:59 Intake Total 2090 1231 595 Output Total 1120 1480 1025 Balance 513 -452 -966 - Physical Examination General/Neuro: NAD Neck: no JVD present Lungs: CTA, unlabored respirations Heart: RRR Abdomen: NT/ND Extremities: + edema B (1+) - Telemetry Telemetry Rhythm: NSR - Labs Result Diagrams: 03/24/18 05:14 03/25/18 06:45 Troponin/CKMB CK-MB (CK-2) 2.9 ng/mL (0-6.6) 02/26/18 01:05 Troponin I 0.038 ng/mL (< 0.028) H 03/21/18 08:29 - Assessment/Plan 1. Acute hypoxic hypercapnic respiratory insufficiency. Improved. s/p trach. 2. Acute on chronic RV dysfunction. 3. Acute on chronic diastolic heart failure, improved. 4. Morbid obesity, BMI 103 5. Pickwickian syndrome 6. Afib RVR, maintaining sinus again. PLAN: - Continue amiodarone. - Continue Eliquis for stroke prophylaxis.
[2018-03-26 04:19] LABS: Hemoglobin 10.5 g/dL (12.0-16.0); Platelet Count 148 thou/uL (130-400)
[2018-03-26 04:42] LABS: Anion Gap 8 mmol/L (10-20); BUN (Urea Nitrogen) 48 mg/dL (9.8-20.1); Calc. Creatinine Clearance 189 mL/min (70-130); Calcium 9.4 mg/dL (7.8-10.44); Carbon Dioxide 37 mmol/L (23-31); Chloride 103 mmol/L (98-107); Estimated GFR-MDRD 69; Glucose 99 mg/dL (80-115); Potassium 4.9 mmol/L (3.5-5.1); Sodium 143 mmol/L (136-145)
--- NOTE | 2018-03-26 07:55 | PRG ---
DATE OF SERVICE: 03/26/2018 SUBJECTIVE: The patient is doing well today. She slept on the vent last night, but has been using t he trach collar during the daytime. OBJECTIVE: VITAL SIGNS: Temperature is 98.2, pulse 66, blood pressure 104/33, total intake for the last 24 hour s is 1332, output 1605. Weight currently 376 pounds. HEENT: Unremarkable. NECK: Trach in good position. LUNGS: Clear but distant breath sounds. CARDIOVASCULAR: S1, S2 regular. ABDOMEN: Soft, obese, nontender, nondistended. EXTREMITIES: Remarkable brawny edema. LABORATORY DATA: Hemoglobin 10.5, hematocrit 37, platelet count of 148,000. Sodium 143, potassium 4 .9, chloride 103, CO2 37, BUN 48, creatinine 0.8, glucose 99. ASSESSMENT: 1. Obesity hypoventilation syndrome. 2. Acute on chronic respiratory failure requiring tracheostomy placement. 3. Very slow to wean. 4. Paroxysmal atrial fibrillation. PLAN: 1. The patient is continuing daytime trach collar trials. 2. Increase activity as tolerated. 3. Sertraline was started yesterday for depression. 4. Placement is the main issue at this point. Her acute illness seems to have stabilized and we are now dealing with just chronic medical issues.
[2018-03-26] MEDS: Furosemide 40 MG/4 ML VIAL SLOW IVP SCH (09:51)
[2018-03-26] MEDS: Pantoprazole 40 MG GRANULES PACKET PER TUBE SCH (09:52)
[2018-03-26] MEDS: Apixaban 5 MG TAB PO SCH ×2 (09:52→20:38)
[2018-03-26] MEDS: Amiodarone 200 MG TAB PO SCH (09:52)
[2018-03-26] MEDS: Losartan 25 MG TAB PO SCH (09:52)
--- NOTE | 2018-03-26 10:19 | PDOC.CTH ---
Cardiology Progress Note - Subjective No new issues. Remains in sinus. - Objective Vital Signs Temp Pulse Resp BP Pulse Ox 03/26/18 08:00 98.0 F 69 21 H 90 L 03/26/18 07:00 98.0 F 03/26/18 06:29 65 104/33 L 03/26/18 06:27 66 19 89 L 03/26/18 06:00 17 03/26/18 04:00 23 H 03/26/18 03:00 98.2 F 03/26/18 02:00 22 H 03/25/18 23:18 68 20 92 L 03/25/18 23:00 98.1 F Admit Weight 600 lb Weight 376 lb 1.738 oz 03/25/18 03/26/18 03/27/18 06:59 06:59 06:59 Intake Total 1231 1332 Output Total 1480 1605 95 Balance -249 -273 -95 - Physical Examination General/Neuro: alert & oriented x3, NAD Neck: no JVD present Lungs: unlabored respirations Heart: RRR Abdomen: NT/ND Extremities: + edema B (1+) - Telemetry Telemetry Rhythm: NSR - Labs Result Diagrams: 03/26/18 03:30 03/26/18 03:30 Troponin/CKMB CK-MB (CK-2) 2.9 ng/mL (0-6.6) 02/26/18 01:05 Troponin I 0.038 ng/mL (< 0.028) H 03/21/18 08:29 - Assessment/Plan 1. Acute hypoxic hypercapnic respiratory insufficiency. Improved. s/p trach. 2. Acute on chronic RV dysfunction. 3. Acute on chronic diastolic heart failure, improved. 4. Morbid obesity, BMI 103 5. Pickwickian syndrome 6. Afib RVR, maintaining sinus now for several days. PLAN: - Continue amiodarone. - Continue Eliquis for stroke prophylaxis. - Will sign off. Please call with any questions.
--- NOTE | 2018-03-26 12:26 | PDOC.PN ---
- Subjective Encounter Start Date: 03/26/18 Encounter Start Time: 11:15 Subjective: awake, on trach collar - Objective Resuscitation Status: Resuscitation Status FULL:Full Resuscitation MAR Reviewed: Yes Vital Signs & Weight: Vital Signs (12 hours) Temp Pulse Resp BP Pulse Ox 03/26/18 12:02 72 20 88 L 03/26/18 11:00 98.0 F 03/26/18 08:00 98.0 F 69 21 H 90 L 03/26/18 07:00 98.0 F 03/26/18 06:29 65 104/33 L 03/26/18 06:27 66 19 89 L 03/26/18 06:00 17 03/26/18 04:00 23 H 03/26/18 03:00 98.2 F 03/26/18 02:00 22 H Weight Admit Weight 600 lb Weight 376 lb 1.738 oz Most Recent Monitor Data Heart Rate from ECG 68 NIBP 105/42 NIBP BP-Mean 55 Respiration from ECG 19 SpO2 92 I&O: 03/25/18 03/26/18 03/27/18 06:59 06:59 06:59 Intake Total 1231 1332 50 Output Total 1480 1605 745 Balance -303 -969 -695 Result Diagrams: 03/26/18 03:30 03/26/18 03:30 Phys Exam - Physical Examination HEENT: PERRLA, moist MMs Neck: no JVD, supple trach+ Respiratory: no wheezing, no rales Cardiovascular: RRR, no significant murmur Gastrointestinal: soft, non-tender, positive bowel sounds Musculoskeletal: pulses present, edema present Neurological: non-focal, moves all 4 limbs Psychiatric: A&O x 3 Dx/Plan (1) Acute and chronic respiratory failure Code(s): J96.20 - ACUTE AND CHR RESP FAILURE, UNSP W HYPOXIA OR HYPERCAPNIA Status: Acute Qualifiers: Respiratory failure complication: hypoxia and hypercapnia Qualified Code(s) : J96.21 - Acute and chronic respiratory failure with hypoxia; J96.22 - Acute and chronic respiratory failure with hypercapnia; J96.22 - Acute and chronic respiratory failure with hypercapnia; J96.22 - Acute and chronic respiratory failure with hypercapnia (2) CAROL (obstructive sleep apnea) Code(s): G47.33 - OBSTRUCTIVE SLEEP APNEA (ADULT) (PEDIATRIC) Status: Chronic (3) Afib Code(s): I48.91 - UNSPECIFIED ATRIAL FIBRILLATION Status: Chronic Qualifiers: Atrial fibrillation type: paroxysmal Qualified Code(s): I48.0 - Paroxysmal atrial fibrillation (4) Acute on chronic diastolic (congestive) heart failure Code(s): I50.33 - ACUTE ON CHRONIC DIASTOLIC (CONGESTIVE) HEART FAILURE Status : Chronic (5) Morbid obesity with BMI of 70 and over, adult Code(s): E66.01 - MORBID (SEVERE) OBESITY DUE TO EXCESS CALORIES; Z68.45 - BODY MASS INDEX (BMI) 70 OR GREATER, ADULT Status: Chronic (6) Pickwickian syndrome Code(s): E66.2 - MORBID (SEVERE) OBESITY WITH ALVEOLAR HYPOVENTILATION Status : Chronic (7) Status post tracheostomy Code(s): Z93.0 - TRACHEOSTOMY STATUS Status: Acute Comment: done on 03/09/18 (8) S/P percutaneous endoscopic gastrostomy (PEG) tube placement Code(s): Z93.1 - GASTROSTOMY STATUS Status: Acute Comment: done on 03/09/18 - Plan has lost atleast 74lbs (450 to 376lbs) -: PT to aggressively work with pt/mobilize/oob to chair etc -: is on eliquis, asp, nebs, amiodarone, cozaar -: zoloft was initiated 2 days back for depression -: suggest change her air/water mattress to regular so she can easily mobilize * . using vent at night and is on trach collar during day Review of Systems - Medications/Allergies Allergies/Adverse Reactions: Allergies Allergy/AdvReac Type Severity Reaction Status Date / Time No Known Drug Allergies Allergy Verified 03/08/18 14:16 Medications: Current Medications Acetaminophen (Tylenol Elixir) 1,000 mg PER TUBE Q6H PRN PRN Reason: Headache/Fever or Pain Last Admin: 03/25/18 16:48 Dose: 1,000 mg Albuterol/Ipratropium (Duoneb) 3 ml NEB [id number] HEIKE Last Admin: 03/26/18 12:02 Dose: 3 ml Amiodarone HCl (Cordarone) 200 mg PO DAILY [facility] Last Admin: 03/26/18 09:52 Dose: 200 mg Lipase/Protease/[place]ylase ([place] [id number]) 1 cap FS .PER PROTOCOL PRN PRN Reason: TUBE OCCLUSION PROTOCOL Apixaban (Eliquis) 5 mg PO BID [facility] Last Admin: 03/26/18 09:52 Dose: 5 mg Aspirin (Aspirin Chewable) 81 mg PO DAILY [facility] Last Admin: 03/26/18 09:52 Dose: 81 mg Clonidine (Catapres) 0.1 mg PO Q4H PRN PRN Reason: Systolic BP > 180 Last Admin: 03/20/18 21:05 Dose: 0.1 mg Furosemide (Lasix) 40 mg SLOW IVP DAILY [facility] Last Admin: 03/26/18 09:51 Dose: 40 mg Hydralazine HCl (Apresoline) 10 mg SLOW IVP Q4H PRN PRN Reason: Systolic BP > 180 Last Admin: 03/14/18 17:06 Dose: 10 mg Potassium Chloride 40 meq/ (Sodium Chloride) 270 mls @ 135 mls/hr IVPB ASDIR PRN PRN Reason: FOR SERUM K+ 2.5 - 3.5 Last Admin: 02/28/18 06:18 Dose: 270 mls Potassium Chloride 40 meq/ (Device) 100 mls @ 50 mls/hr IVPB ASDIR PRN PRN Reason: FOR SERUM K+ 2.5 - 3.5 Magnesium Sulfate 1 gm/ Sodium (Chloride) 102 mls @ 102 mls/hr IV PRN PRN PRN Reason: MAG LEVEL 1.4 - 2.0 Magnesium Sulfate 2 gm/ Device 100 mls @ 100 mls/hr IVPB ASDIR PRN PRN Reason: MAGNESIUM < 1.4 Potassium Phosphate 9 mmol/ (Sodium Chloride) 103 mls @ 25.75 mls/hr IVPB ASDIR PRN PRN Reason: Phosphate 1.0-1.8 Potassium Phosphate 12 mmol/ (Sodium Chloride) 254 mls @ 63.5 mls/hr IV ASDIR PRN PRN Reason: Serum phosphate 0.5-0.9 Potassium Phosphate 15 mmol/ (Sodium Chloride) 255 mls @ 63.75 mls/hr IV ASDIR PRN PRN Reason: Serum Phos < 0.5 Losartan Potassium (Cozaar) 25 mg PO DAILY [facility] Last Admin: 03/26/18 09:52 Dose: 25 mg Magnesium Oxide (Magnesium Oxide) 400 mg PO BIDPRN PRN PRN Reason: FOR SERUM MAG 1.4 - 2.0 Magnesium Oxide (Magnesium Oxide) 800 mg PO PRN PRN PRN Reason: FOR SERUM MAG < 1.4 Miscellaneous Medication (Phos-Nak) 1 pkt PO TIDPRN PRN PRN Reason: FOR PHOS LEVEL 1.0 - 1.8 Miscellaneous Medication (Phos-Nak) 2 pkt PO TIDPRN PRN PRN Reason: FOR PHOS LEVEL 0.5 - 1.0 Ondansetron HCl (Zofran Odt) 4 mg PO Q6H PRN PRN Reason: Nausea/Vomiting Last Admin: 03/24/18 11:57 Dose: 4 mg Ondansetron HCl (Zofran) 4 mg IVP Q6H PRN PRN Reason: Nausea/Vomiting Pantoprazole Sodium (Protonix) 40 mg PER TUBE DAILY [facility] Last Admin: 03/26/18 09:52 Dose: 40 mg Potassium Chloride (K-Dur) 40 meq PO ASDIR PRN PRN Reason: FOR SERUM K+ 2.5 - 3.5 Last Admin: 03/04/18 06:43 Dose: 40 meq Potassium Chloride (Klor-Con) 40 meq PER TUBE ASDIR PRN PRN Reason: FOR SERUM K+ 2.5-3.5 Last Admin: 03/20/18 08:42 Dose: 40 meq Sertraline HCl (Zoloft) 50 mg PER TUBE DAILY [facility] Last Admin: 03/26/18 09:52 Dose: 50 mg Sodium Bicarbonate (Bicarbonate, Sodium) 650 mg PER TUBE .PER PROTOCOL PRN PRN Reason: ENTERAL TUBE OCCLUSION Sodium Chloride (Flush - Normal Saline) 10 ml IVF Q12HR HEIKE Last Admin: 03/26/18 09:52 Dose: 10 ml Sodium Chloride (Flush - Normal Saline) 10 ml IVF PRN PRN PRN Reason: Saline Flush Last Admin: 03/14/18 08:28 Dose: 10 ml
[2018-03-26] MEDS: Acetaminophen 650 MG/20.3 ML UDCUP PER TUBE PRN (16:15)
[2018-03-27 05:33] LABS: BUN (Urea Nitrogen) 48 mg/dL (9.8-20.1); Calc. Creatinine Clearance 204 mL/min (70-130); Calcium 9.4 mg/dL (7.8-10.44); Estimated GFR-MDRD 75; Glucose 102 mg/dL (80-115)
[2018-03-27 05:42] LABS: Anion Gap 9 mmol/L (10-20); Carbon Dioxide 35 mmol/L (23-31); Chloride 104 mmol/L (98-107); Potassium 4.6 mmol/L (3.5-5.1); Sodium 143 mmol/L (136-145)
--- NOTE | 2018-03-27 07:34 | PRG ---
DATE OF SERVICE: 03/27/2018 A 35 minutes critical care time. SUBJECTIVE: The patient still remains on mechanical ventilation in the CCU. She has been doing trach collar trials during the daytime and tolerating that for the most part, but she has needed the ventilator at night. Her O2 sats are usually running in the high 80s to low 90s and she does not appear to be in any overt distress today. OBJECTIVE: VITAL SIGNS: Temperature is 98.2, pulse 73, blood pressure 111/46, O2 sat 87%. Total intake for 24 hours is 1564, output 2395. HEENT: Unremarkable. NECK: Trach in good position. LUNGS: Coarse rhonchi. CARDIOVASCULAR: S1, S2 regular. ABDOMEN: Soft, obese, nontender, nondistended. EXTREMITIES: Remarkable for brawny edema. LABORATORY DATA: Sodium 143, potassium 4.6, chloride 104, CO2 35, BUN 48, creatinine 0.7, glucose 102. ASSESSMENT: 1. Acute on chronic respiratory failure. 2. Obesity hypoventilation syndrome. 3. Morbid obesity. 4. Paroxysmal atrial fibrillation. PLAN: 1. She is showing some evidence of prerenal azotemia, so I will go ahead and hold her diuretics today. Her Lasix will probably have to be restarted by Friday. 2. Needs to get up in a chair as tolerated. 3. Continue trach collar trials during the day. 4. Placement is not a possibility secondary to the fact that she is not a citizen and has no medical insurance. CHELI
[2018-03-27] MEDS: Pantoprazole 40 MG GRANULES PACKET PER TUBE SCH (08:36)
[2018-03-27] MEDS: Apixaban 5 MG TAB PO SCH ×2 (08:36→20:22)
[2018-03-27] MEDS: Losartan 25 MG TAB PO SCH (08:36)
[2018-03-27] MEDS: Amiodarone 200 MG TAB PO SCH (08:36)
--- NOTE | 2018-03-27 14:22 | PDOC.PN ---
- Subjective Encounter Start Date: 03/27/18 Encounter Start Time: 13:00 Subjective: on trach collar, follows verbal stimuli - Objective Resuscitation Status: Resuscitation Status FULL:Full Resuscitation MAR Reviewed: Yes Vital Signs & Weight: Vital Signs (12 hours) Temp Pulse Resp Pulse Ox 03/27/18 12:43 73 22 H 91 L 03/27/18 12:00 98.0 F 03/27/18 08:00 98.0 F 70 24 H 88 L 03/27/18 07:00 98.0 F 03/27/18 06:34 74 20 88 L 03/27/18 04:00 98.2 F 20 Weight Admit Weight 600 lb Weight 376 lb 1.738 oz Most Recent Monitor Data Heart Rate from ECG 74 NIBP 125/55 NIBP BP-Mean 74 Respiration from ECG 23 SpO2 90 I&O: 03/26/18 03/27/18 03/28/18 06:59 06:59 06:59 Intake Total 1332 1564 210 Output Total 1605 2395 500 Balance -273 -831 -290 Result Diagrams: 03/26/18 03:30 03/27/18 05:00 Phys Exam - Physical Examination HEENT: PERRLA, moist MMs Neck: no JVD trach+ Respiratory: no wheezing rhonchi+ Cardiovascular: RRR, no significant murmur Gastrointestinal: soft, no distention, positive bowel sounds peg+ Musculoskeletal: pulses present, edema present Neurological: non-focal, moves all 4 limbs Dx/Plan (1) Acute and chronic respiratory failure Code(s): J96.20 - ACUTE AND CHR RESP FAILURE, UNSP W HYPOXIA OR HYPERCAPNIA Status: Acute Qualifiers: Respiratory failure complication: hypoxia and hypercapnia Qualified Code(s) : J96.21 - Acute and chronic respiratory failure with hypoxia; J96.22 - Acute and chronic respiratory failure with hypercapnia; J96.22 - Acute and chronic respiratory failure with hypercapnia; J96.22 - Acute and chronic respiratory failure with hypercapnia (2) CAROL (obstructive sleep apnea) Code(s): G47.33 - OBSTRUCTIVE SLEEP APNEA (ADULT) (PEDIATRIC) Status: Chronic (3) Afib Code(s): I48.91 - UNSPECIFIED ATRIAL FIBRILLATION Status: Chronic Qualifiers: Atrial fibrillation type: paroxysmal Qualified Code(s): I48.0 - Paroxysmal atrial fibrillation (4) Acute on chronic diastolic (congestive) heart failure Code(s): I50.33 - ACUTE ON CHRONIC DIASTOLIC (CONGESTIVE) HEART FAILURE Status : Chronic (5) Morbid obesity with BMI of 70 and over, adult Code(s): E66.01 - MORBID (SEVERE) OBESITY DUE TO EXCESS CALORIES; Z68.45 - BODY MASS INDEX (BMI) 70 OR GREATER, ADULT Status: Chronic (6) Pickwickian syndrome Code(s): E66.2 - MORBID (SEVERE) OBESITY WITH ALVEOLAR HYPOVENTILATION Status : Chronic (7) Status post tracheostomy Code(s): Z93.0 - TRACHEOSTOMY STATUS Status: Acute Comment: done on 03/09/18 (8) S/P percutaneous endoscopic gastrostomy (PEG) tube placement Code(s): Z93.1 - GASTROSTOMY STATUS Status: Acute Comment: done on 03/09/18 - Plan is on vent at night and trach collar during day -: not motivated, is seen sleeping for the most part -: on zoloft, amiodarone, eliquis, cozaar -: PT to work aggressively with patient, oob to chair/amb -: poor prognosis * . Review of Systems - Medications/Allergies Allergies/Adverse Reactions: Allergies Allergy/AdvReac Type Severity Reaction Status Date / Time No Known Drug Allergies Allergy Verified 03/08/18 14:16 Medications: Current Medications Acetaminophen (Tylenol Elixir) 1,000 mg PER TUBE Q6H PRN PRN Reason: Headache/Fever or Pain Last Admin: 03/26/18 16:15 Dose: 1,000 mg Albuterol/Ipratropium (Duoneb) 3 ml NEB [id number] HEIKE Last Admin: 03/27/18 12:43 Dose: 3 ml Amiodarone HCl (Cordarone) 200 mg PO DAILY [facility] Last Admin: 03/27/18 08:36 Dose: 200 mg Lipase/Protease/Amylase ([place] [id number]) 1 cap FS .PER PROTOCOL PRN PRN Reason: TUBE OCCLUSION PROTOCOL Apixaban (Eliquis) 5 mg PO BID [facility] Last Admin: 03/27/18 08:36 Dose: 5 mg Aspirin (Aspirin Chewable) 81 mg PO DAILY [facility] Last Admin: 03/27/18 08:36 Dose: 81 mg Clonidine (Catapres) 0.1 mg PO Q4H PRN PRN Reason: Systolic BP > 180 Last Admin: 03/20/18 21:05 Dose: 0.1 mg Hydralazine HCl (Apresoline) 10 mg SLOW IVP Q4H PRN PRN Reason: Systolic BP > 180 Last Admin: 03/14/18 17:06 Dose: 10 mg Potassium Chloride 40 meq/ (Sodium Chloride) 270 mls @ 135 mls/hr IVPB ASDIR PRN PRN Reason: FOR SERUM K+ 2.5 - 3.5 Last Admin: 02/28/18 06:18 Dose: 270 mls Potassium Chloride 40 meq/ (Device) 100 mls @ 50 mls/hr IVPB ASDIR PRN PRN Reason: FOR SERUM K+ 2.5 - 3.5 Magnesium Sulfate 1 gm/ Sodium (Chloride) 102 mls @ 102 mls/hr IV PRN PRN PRN Reason: MAG LEVEL 1.4 - 2.0 Magnesium Sulfate 2 gm/ Device 100 mls @ 100 mls/hr IVPB ASDIR PRN PRN Reason: MAGNESIUM < 1.4 Potassium Phosphate 9 mmol/ (Sodium Chloride) 103 mls @ 25.75 mls/hr IVPB ASDIR PRN PRN Reason: Phosphate 1.0-1.8 Potassium Phosphate 12 mmol/ (Sodium Chloride) 254 mls @ 63.5 mls/hr IV ASDIR PRN PRN Reason: Serum phosphate 0.5-0.9 Potassium Phosphate 15 mmol/ (Sodium Chloride) 255 mls @ 63.75 mls/hr IV ASDIR PRN PRN Reason: Serum Phos < 0.5 Losartan Potassium (Cozaar) 25 mg PO DAILY [facility] Last Admin: 03/27/18 08:36 Dose: 25 mg Magnesium Oxide (Magnesium Oxide) 400 mg PO BIDPRN PRN PRN Reason: FOR SERUM MAG 1.4 - 2.0 Magnesium Oxide (Magnesium Oxide) 800 mg PO PRN PRN PRN Reason: FOR SERUM MAG < 1.4 Miscellaneous Medication (Phos-Nak) 1 pkt PO TIDPRN PRN PRN Reason: FOR PHOS LEVEL 1.0 - 1.8 Miscellaneous Medication (Phos-Nak) 2 pkt PO TIDPRN PRN PRN Reason: FOR PHOS LEVEL 0.5 - 1.0 Ondansetron HCl (Zofran Odt) 4 mg PO Q6H PRN PRN Reason: Nausea/Vomiting Last Admin: 03/24/18 11:57 Dose: 4 mg Ondansetron HCl (Zofran) 4 mg IVP Q6H PRN PRN Reason: Nausea/Vomiting Pantoprazole Sodium (Protonix) 40 mg PER TUBE DAILY [facility] Last Admin: 03/27/18 08:36 Dose: 40 mg Potassium Chloride (K-Dur) 40 meq PO ASDIR PRN PRN Reason: FOR SERUM K+ 2.5 - 3.5 Last Admin: 03/04/18 06:43 Dose: 40 meq Potassium Chloride (Klor-Con) 40 meq PER TUBE ASDIR PRN PRN Reason: FOR SERUM K+ 2.5-3.5 Last Admin: 03/20/18 08:42 Dose: 40 meq Sertraline HCl (Zoloft) 50 mg PER TUBE DAILY [facility] Last Admin: 03/27/18 08:36 Dose: 50 mg Sodium Bicarbonate (Bicarbonate, Sodium) 650 mg PER TUBE .PER PROTOCOL PRN PRN Reason: ENTERAL TUBE OCCLUSION Sodium Chloride (Flush - Normal Saline) 10 ml IVF Q12HR [facility] Last Admin: 03/27/18 08:37 Dose: 10 ml Sodium Chloride (Flush - Normal Saline) 10 ml IVF PRN PRN PRN Reason: Saline Flush Last Admin: 03/14/18 08:28 Dose: 10 ml
[2018-03-27] MEDS: Acetaminophen 650 MG/20.3 ML UDCUP PER TUBE PRN (20:21)
[2018-03-28 05:07] LABS: Hemoglobin 10.6 g/dL (12.0-16.0); Platelet Count 139 thou/uL (130-400)
[2018-03-28 05:36] LABS: BUN (Urea Nitrogen) 46 mg/dL (9.8-20.1); Calc. Creatinine Clearance 215 mL/min (70-130); Calcium 9.4 mg/dL (7.8-10.44); Estimated GFR-MDRD 80; Glucose 93 mg/dL (80-115)
[2018-03-28 05:45] LABS: Anion Gap 7 mmol/L (10-20); Carbon Dioxide 38 mmol/L (23-31); Chloride 105 mmol/L (98-107); Potassium 4.6 mmol/L (3.5-5.1); Sodium 145 mmol/L (136-145)
[2018-03-28] MEDS: Apixaban 5 MG TAB PO SCH ×2 (08:24→20:32)
[2018-03-28] MEDS: Amiodarone 200 MG TAB PO SCH (08:25)
[2018-03-28] MEDS: Pantoprazole 40 MG GRANULES PACKET PER TUBE SCH (08:25)
[2018-03-28] MEDS: Losartan 25 MG TAB PO SCH (08:25)
--- NOTE | 2018-03-28 10:09 | RAD ---
PORTABLE SEMIUPRIGHT FRONTAL CHEST RADIOGRAPH: DATE: 03/28/18. COMPARISON: 02/28/18. HISTORY: Ventilated patient. FINDINGS: There is an endotracheal tube projecting over the tracheal air column, which terminates just below th e level of the clavicular heads. Stable prominence of the cardiac silhouette. Body habitus, portabl e technique, and rotation to the left limits detailed assessment. Diffuse increased linear interstit ial density noted suggesting chronic interstitial disease with possible superimposed inflammatory or edematous change. IMPRESSION: No significant interval change. Limited study as above. POS: [facility]
--- NOTE | 2018-03-28 10:40 | PDOC.PN ---
- Subjective Encounter Start Date: 03/28/18 Encounter Start Time: 10:45 patient seen and examined for Acute on chronic respiratory failure. Clinically stable and has no complaints. No acute events overnight. - Objective Resuscitation Status: Resuscitation Status FULL:Full Resuscitation Vital Signs & Weight: Vital Signs (12 hours) Temp Pulse Resp Pulse Ox 03/28/18 07:24 98.4 F 88 20 88 L 03/28/18 07:00 98.4 F 03/28/18 06:33 87 L 03/28/18 06:11 74 03/28/18 06:03 74 20 87 L 03/28/18 06:00 23 H 03/28/18 04:00 98.0 F 19 03/28/18 02:31 67 03/28/18 00:32 67 17 90 L 03/28/18 00:00 97.6 F 18 03/27/18 22:47 72 Weight Admit Weight 600 lb Weight 376 lb 1.738 oz Most Recent Monitor Data Heart Rate from ECG 74 NIBP 98/42 NIBP BP-Mean 57 Respiration from ECG 18 SpO2 89 I&O: 03/27/18 03/28/18 03/29/18 06:59 06:59 06:59 Intake Total 1564 1635 60 Output Total 2395 1440 190 Balance -831 195 -130 Result Diagrams: 03/28/18 04:50 03/28/18 04:50 Phys Exam - Physical Examination Constitutional: NAD HEENT: PERRLA, moist MMs, sclera anicteric Neck: no JVD, supple, full ROM Bronchial breath sounds bilterally. No wheezing, rales, rhonchi. Cardiovascular: no significant murmur, no rub, irregular s1 s2 only. Gastrointestinal: soft, non-tender, no distention, positive bowel sounds Obese Musculoskeletal: pulses present, edema present Neurological: non-focal Skin: no rash, normal turgor Dx/Plan (1) Acute and chronic respiratory failure Code(s): J96.20 - ACUTE AND CHR RESP FAILURE, UNSP W HYPOXIA OR HYPERCAPNIA Status: Acute Qualifiers: Respiratory failure complication: hypoxia and hypercapnia Qualified Code(s) : J96.21 - Acute and chronic respiratory failure with hypoxia; J96.22 - Acute and chronic respiratory failure with hypercapnia; J96.22 - Acute and chronic respiratory failure with hypercapnia; J96.22 - Acute and chronic respiratory failure with hypercapnia Comment: Stable. Continue Trach collar trials. (2) S/P percutaneous endoscopic gastrostomy (PEG) tube placement Code(s): Z93.1 - GASTROSTOMY STATUS Status: Acute Comment: Had procedure on 03/09/18. Stable. (3) Status post tracheostomy Code(s): Z93.0 - TRACHEOSTOMY STATUS Status: Acute Comment: Had procedure on 03/09/18. Stable. (4) Afib Code(s): I48.91 - UNSPECIFIED ATRIAL FIBRILLATION Status: Chronic Qualifiers: Atrial fibrillation type: paroxysmal Qualified Code(s): I48.0 - Paroxysmal atrial fibrillation Comment: Rate controlled. Continue Eliquis, ASA and Amiodarone. (5) Morbid obesity with BMI of 70 and over, adult Code(s): E66.01 - MORBID (SEVERE) OBESITY DUE TO EXCESS CALORIES; Z68.45 - BODY MASS INDEX (BMI) 70 OR GREATER, ADULT Status: Chronic (6) Pickwickian syndrome Code(s): E66.2 - MORBID (SEVERE) OBESITY WITH ALVEOLAR HYPOVENTILATION Status : Chronic Comment: s/p trach collar. (7) Chronic diastolic CHF (congestive heart failure), NYHA class 3 Code(s): I50.32 - CHRONIC DIASTOLIC (CONGESTIVE) HEART FAILURE Status: Chronic Comment: Stable. Diuretics held 2/2 azotemia. - Plan cont current plan of care, koch catheter, PT/OT, home health care social worker, respiratory therapy Continue current management. Patient with no medical insurance so placement has been challenging. Review of Systems - Medications/Allergies Allergies/Adverse Reactions: Allergies Allergy/AdvReac Type Severity Reaction Status Date / Time No Known Drug Allergies Allergy Verified 03/08/18 14:16 Medications: Current Medications Acetaminophen (Tylenol Elixir) 1,000 mg PER TUBE Q6H PRN PRN Reason: Headache/Fever or Pain Last Admin: 03/27/18 20:21 Dose: 1,000 mg Albuterol/Ipratropium (Duoneb) 3 ml NEB [id number] [facility] Last Admin: 03/28/18 06:03 Dose: 3 ml Amiodarone HCl (Cordarone) 200 mg PO DAILY [facility] Last Admin: 03/28/18 08:25 Dose: 200 mg Lipase/Protease/[place]ylase ([place] [id number]) 1 cap FS .PER PROTOCOL PRN PRN Reason: TUBE OCCLUSION PROTOCOL Apixaban (Eliquis) 5 mg PO BID [facility] Last Admin: 03/28/18 08:24 Dose: 5 mg Aspirin (Aspirin Chewable) 81 mg PO DAILY [facility] Last Admin: 03/28/18 08:25 Dose: 81 mg Clonidine (Catapres) 0.1 mg PO Q4H PRN PRN Reason: Systolic BP > 180 Last Admin: 03/20/18 21:05 Dose: 0.1 mg Hydralazine HCl (Apresoline) 10 mg SLOW IVP Q4H PRN PRN Reason: Systolic BP > 180 Last Admin: 03/14/18 17:06 Dose: 10 mg Potassium Chloride 40 meq/ (Sodium Chloride) 270 mls @ 135 mls/hr IVPB ASDIR PRN PRN Reason: FOR SERUM K+ 2.5 - 3.5 Last Admin: 02/28/18 06:18 Dose: 270 mls Potassium Chloride 40 meq/ (Device) 100 mls @ 50 mls/hr IVPB ASDIR PRN PRN Reason: FOR SERUM K+ 2.5 - 3.5 Magnesium Sulfate 1 gm/ Sodium (Chloride) 102 mls @ 102 mls/hr IV PRN PRN PRN Reason: MAG LEVEL 1.4 - 2.0 Magnesium Sulfate 2 gm/ Device 100 mls @ 100 mls/hr IVPB ASDIR PRN PRN Reason: MAGNESIUM < 1.4 Potassium Phosphate 9 mmol/ (Sodium Chloride) 103 mls @ 25.75 mls/hr IVPB ASDIR PRN PRN Reason: Phosphate 1.0-1.8 Potassium Phosphate 12 mmol/ (Sodium Chloride) 254 mls @ 63.5 mls/hr IV ASDIR PRN PRN Reason: Serum phosphate 0.5-0.9 Potassium Phosphate 15 mmol/ (Sodium Chloride) 255 mls @ 63.75 mls/hr IV ASDIR PRN PRN Reason: Serum Phos < 0.5 Losartan Potassium (Cozaar) 25 mg PO DAILY [facility] Last Admin: 03/28/18 08:25 Dose: 25 mg Magnesium Oxide (Magnesium Oxide) 400 mg PO BIDPRN PRN PRN Reason: FOR SERUM MAG 1.4 - 2.0 Magnesium Oxide (Magnesium Oxide) 800 mg PO PRN PRN PRN Reason: FOR SERUM MAG < 1.4 Miscellaneous Medication (Phos-Nak) 1 pkt PO TIDPRN PRN PRN Reason: FOR PHOS LEVEL 1.0 - 1.8 Miscellaneous Medication (Phos-Nak) 2 pkt PO TIDPRN PRN PRN Reason: FOR PHOS LEVEL 0.5 - 1.0 Ondansetron HCl (Zofran Odt) 4 mg PO Q6H PRN PRN Reason: Nausea/Vomiting Last Admin: 03/24/18 11:57 Dose: 4 mg Ondansetron HCl (Zofran) 4 mg IVP Q6H PRN PRN Reason: Nausea/Vomiting Pantoprazole Sodium (Protonix) 40 mg PER TUBE DAILY [facility] Last Admin: 03/28/18 08:25 Dose: 40 mg Potassium Chloride (K-Dur) 40 meq PO ASDIR PRN PRN Reason: FOR SERUM K+ 2.5 - 3.5 Last Admin: 03/04/18 06:43 Dose: 40 meq Potassium Chloride (Klor-Con) 40 meq PER TUBE ASDIR PRN PRN Reason: FOR SERUM K+ 2.5-3.5 Last Admin: 03/20/18 08:42 Dose: 40 meq Sertraline HCl (Zoloft) 50 mg PER TUBE DAILY [facility] Last Admin: 03/28/18 08:25 Dose: 50 mg Sodium Bicarbonate (Bicarbonate, Sodium) 650 mg PER TUBE .PER PROTOCOL PRN PRN Reason: ENTERAL TUBE OCCLUSION Sodium Chloride (Flush - Normal Saline) 10 ml IVF Q12HR [facility] Last Admin: 03/28/18 08:26 Dose: 10 ml Sodium Chloride (Flush - Normal Saline) 10 ml IVF PRN PRN PRN Reason: Saline Flush Last Admin: 03/14/18 08:28 Dose: 10 ml
--- NOTE | 2018-03-28 13:28 | PRG ---
DATE OF SERVICE: 03/28/2018 SERVICE: Pulmonary Medicine. INTERVAL HISTORY: Patient is doing fine from a respiratory standpoint. We tried a [place] Weir valve briefly on her this morning. That being said, her trachea just is not large enough to accommodate th e 8-0 tracheostomy, and allow for airflow around it. As such, she did not tolerate this thing. That being said, she is little tearful this morning. There were no events overnight. PHYSICAL EXAMINATION: VITAL SIGNS: Afebrile, pulse 75, blood pressure 113/41, respirations 26, saturation 89% on 28% FiO2. GENERAL: The patient is awake and alert. No apparent distress. LUNGS: Decent air entry bilaterally. There is no prolonged expiratory phase. HEART: Normal rate and regular. ABDOMEN: Soft, nontender, nondistended. Bowel sounds are positive. MUSCULOSKELETAL: No cyanosis or clubbing. There is no pitting in the bilateral lower extremities. NEUROLOGIC: Grossly nonfocal. LABORATORY DATA: Hemoglobin 10.6. Basic metabolic profile is essentially unremarkable/stable. Urin alysis and blood culture x2 are negative. IMAGING DATA: Chest x-ray demonstrates soft tissue attenuation. No obvious pleural effusions are id entified. There is pretty significant rotation. That being said, the heart is quite generous in siz e and my suspicion is she has significant cardiomegaly still. There is a tracheostomy tube that term inates in decent position. ASSESSMENT: 1. Acute on chronic hypoxic and hypercapnic respiratory failure. 2. Obesity hypoventilation syndrome. 3. Morbid obesity. 4. Paroxysmal atrial fibrillation, currently sinus rhythm. DISCUSSION AND PLAN: I will continue to intermittently dose Lasix moving forward. We will continue our mobility efforts. We will continue T-collar trials through the day, and returned her to pressure support ventilation at night. Pulmonary or Critical Care will continue to follow along. She will l ikely stay with us for quite some time as she has no place to go safely at this time.
[2018-03-29] MEDS: Pantoprazole 40 MG GRANULES PACKET PER TUBE SCH (09:14)
[2018-03-29] MEDS: Losartan 25 MG TAB PO SCH (09:14)
[2018-03-29] MEDS: Amiodarone 200 MG TAB PO SCH (09:14)
[2018-03-29] MEDS: Apixaban 5 MG TAB PO SCH ×2 (09:14→20:10)
--- NOTE | 2018-03-29 11:23 | PRG ---
DATE OF SERVICE: 03/29/2018 SERVICE: Pulmonary Medicine. INTERVAL HISTORY: The patient is doing fine from a respiratory standpoint. She has no complaints of fevers or chills. She is not having any coughing. She is not bringing up any sputum. Otherwise, t here has been no interval change to her condition. PHYSICAL EXAMINATION: VITAL SIGNS: Afebrile, pulse 66, blood pressure 126/52, respirations 10, saturation 88% on T-collar delivering a 35% FiO2. HEENT: Normocephalic, atraumatic. Sclerae are white, conjunctivae pink. Oral mucosa is moist witho ut lesions. LUNGS: Decent air entry. There is a prolonged expiratory phase. No wheezing, rhonchi, or crackles are appreciated. HEART: Normal rate, regular. ABDOMEN: Soft, nontender, nondistended. Bowel sounds are positive. MUSCULOSKELETAL: No cyanosis or clubbing. There is no pitting in the bilateral lower extremities. NEUROLOGIC: Grossly nonfocal. ASSESSMENT: 1. Acute on chronic hypoxic and hypercapnic respiratory failure. 2. Obesity hypoventilation syndrome. 3. Morbid obesity. 4. Paroxysmal atrial fibrillation, currently sinus. DISCUSSION AND PLAN: I will continue supportive care. I will repeat laboratories tomorrow morning. She will remain on T-collar through the day and pressure support ventilation at night.
--- NOTE | 2018-03-29 14:04 | PDOC.PN ---
- Subjective Encounter Start Date: 03/29/18 Encounter Start Time: 14:07 Patient seen and examined today following Acute on chronic respiratory failure. She is s/p trach collar and clinically stable. She has no new complaints and no acute events overnight. No interval changes in her clinical status. - Objective Resuscitation Status: Resuscitation Status FULL:Full Resuscitation MAR Reviewed: Yes Vital Signs & Weight: Vital Signs (12 hours) Temp Pulse Resp Pulse Ox 03/29/18 12:26 68 23 H 89 L 03/29/18 12:00 98.3 F 03/29/18 08:00 97.9 F 67 17 89 L 03/29/18 06:00 20 03/29/18 05:53 70 18 88 L 03/29/18 05:00 98.8 F 03/29/18 04:00 16 03/29/18 02:44 69 Weight Admit Weight 600 lb Weight 376 lb 1.738 oz Most Recent Monitor Data Heart Rate from ECG 67 NIBP 154/56 NIBP BP-Mean 92 Respiration from ECG 26 SpO2 88 I&O: 03/28/18 03/29/18 03/30/18 06:59 06:59 06:59 Intake Total 1635 1028 950 Output Total 1440 1378 245 Balance 195 -350 705 Result Diagrams: 03/28/18 04:50 03/28/18 04:50 Phys Exam - Physical Examination Constitutional: NAD HEENT: PERRLA, moist MMs, sclera anicteric, oral pharynx no lesions Neck: no JVD, supple, full ROM Respiratory: no wheezing, no rales, no rhonchi Cardiovascular: RRR, no significant murmur, no rub Gastrointestinal: soft, non-tender, no distention, positive bowel sounds Musculoskeletal: pulses present, edema present Neurological: non-focal Skin: no rash, normal turgor Dx/Plan (1) Acute and chronic respiratory failure Code(s): J96.20 - ACUTE AND CHR RESP FAILURE, UNSP W HYPOXIA OR HYPERCAPNIA Status: Acute Qualifiers: Respiratory failure complication: hypoxia and hypercapnia Qualified Code(s) : J96.21 - Acute and chronic respiratory failure with hypoxia; J96.22 - Acute and chronic respiratory failure with hypercapnia; J96.22 - Acute and chronic respiratory failure with hypercapnia; J96.22 - Acute and chronic respiratory failure with hypercapnia Comment: Stable. Continue Trach collar trials and nightly mechanical ventilation per pulmonary/critical care. (2) S/P percutaneous endoscopic gastrostomy (PEG) tube placement Code(s): Z93.1 - GASTROSTOMY STATUS Status: Acute Comment: Had procedure on 03/09/18. Stable. (3) Status post tracheostomy Code(s): Z93.0 - TRACHEOSTOMY STATUS Status: Acute Comment: Had procedure on 03/09/18. Stable. (4) Afib Code(s): I48.91 - UNSPECIFIED ATRIAL FIBRILLATION Status: Chronic Qualifiers: Atrial fibrillation type: paroxysmal Qualified Code(s): I48.0 - Paroxysmal atrial fibrillation Comment: Rate controlled. Continue Eliquis, ASA and Amiodarone. (5) Morbid obesity with BMI of 70 and over, adult Code(s): E66.01 - MORBID (SEVERE) OBESITY DUE TO EXCESS CALORIES; Z68.45 - BODY MASS INDEX (BMI) 70 OR GREATER, ADULT Status: Chronic (6) Pickwickian syndrome Code(s): E66.2 - MORBID (SEVERE) OBESITY WITH ALVEOLAR HYPOVENTILATION Status : Chronic Comment: s/p trach collar. (7) Chronic diastolic CHF (congestive heart failure), NYHA class 3 Code(s): I50.32 - CHRONIC DIASTOLIC (CONGESTIVE) HEART FAILURE Status: Chronic Comment: Stable. Diuretics initially held 2/2 azotemia. Will be given PRN. - Plan cont current plan of care, plan discussed w/ family, PT/OT, respiratory therapy * . Review of Systems - Medications/Allergies Allergies/Adverse Reactions: Allergies Allergy/AdvReac Type Severity Reaction Status Date / Time No Known Drug Allergies Allergy Verified 03/08/18 14:16 Medications: Current Medications Acetaminophen (Tylenol Elixir) 1,000 mg PER TUBE Q6H PRN PRN Reason: Headache/Fever or Pain Last Admin: 03/27/18 20:21 Dose: 1,000 mg Albuterol/Ipratropium (Duoneb) 3 ml NEB [id number] [facility] Last Admin: 03/29/18 12:26 Dose: 3 ml Amiodarone HCl (Cordarone) 200 mg PO DAILY [facility] Last Admin: 03/29/18 09:14 Dose: 200 mg Lipase/Protease/Amylase ([place] [id number]) 1 cap FS .PER PROTOCOL PRN PRN Reason: TUBE OCCLUSION PROTOCOL Apixaban (Eliquis) 5 mg PO BID [facility] Last Admin: 03/29/18 09:14 Dose: 5 mg Aspirin (Aspirin Chewable) 81 mg PO DAILY [facility] Last Admin: 03/29/18 09:15 Dose: 81 mg Clonidine (Catapres) 0.1 mg PO Q4H PRN PRN Reason: Systolic BP > 180 Last Admin: 03/20/18 21:05 Dose: 0.1 mg Hydralazine HCl (Apresoline) 10 mg SLOW IVP Q4H PRN PRN Reason: Systolic BP > 180 Last Admin: 03/14/18 17:06 Dose: 10 mg Losartan Potassium (Cozaar) 25 mg PO DAILY [facility] Last Admin: 03/29/18 09:14 Dose: 25 mg Ondansetron HCl (Zofran Odt) 4 mg PO Q6H PRN PRN Reason: Nausea/Vomiting Last Admin: 03/24/18 11:57 Dose: 4 mg Ondansetron HCl (Zofran) 4 mg IVP Q6H PRN PRN Reason: Nausea/Vomiting Pantoprazole Sodium (Protonix) 40 mg PER TUBE DAILY [facility] Last Admin: 03/29/18 09:14 Dose: 40 mg Sertraline HCl (Zoloft) 50 mg PER TUBE DAILY [facility] Last Admin: 03/29/18 09:14 Dose: 50 mg Sodium Bicarbonate (Bicarbonate, Sodium) 650 mg PER TUBE .PER PROTOCOL PRN PRN Reason: ENTERAL TUBE OCCLUSION Sodium Chloride (Flush - Normal Saline) 10 ml IVF Q12HR [facility] Last Admin: 03/29/18 09:15 Dose: 10 ml Sodium Chloride (Flush - Normal Saline) 10 ml IVF PRN PRN PRN Reason: Saline Flush Last Admin: 03/14/18 08:28 Dose: 10 ml
[2018-03-30] MEDS: Acetaminophen 650 MG/20.3 ML UDCUP PER TUBE PRN (01:42)
[2018-03-30 06:05] LABS: Anion Gap 9 mmol/L (10-20); BUN (Urea Nitrogen) 43 mg/dL (9.8-20.1); Calc. Creatinine Clearance 204 mL/min (70-130); Calcium 9.3 mg/dL (7.8-10.44); Carbon Dioxide 36 mmol/L (23-31); Chloride 103 mmol/L (98-107); Estimated GFR-MDRD 75; Glucose 87 mg/dL (80-115); Magnesium 1.9 mg/dL (1.6-2.6); Phosphorus 3.6 mg/dL (2.3-4.7); Potassium 4.5 mmol/L (3.5-5.1); Sodium 143 mmol/L (136-145)
[2018-03-30 06:27] LABS: Band 5 % (5-11); Eosinophils 8 % (0-10); Hemoglobin 10.9 g/dL (12.0-16.0); Lymphocytes 13 % (21-51); MDiff Complete? YES; Mean Corpuscular HGB CONC 29.7 g/dL (32.0-36.0); Mean Corpuscular Hemoglobin 25.7 pg (27.0-31.0); Mean Corpuscular Volume 86.6 fl (81.0-99.0); Mean Platelet Volume 9.4 fL (7.4-10.4); Monocytes 13 % (0-10); Myelocyte 1 % (0-0); Neutrophil 59 % (42-75); Platelet Count 134 thou/uL (130-400); RBC Distribution Width 21.5 % (11.5-14.5); Red Blood Cell (RBC) Count 4.23 mill/uL (4.20-5.40); White Blood Cell (WBC) Count 7.1 thou/uL (4.8-10.8)
[2018-03-30] MEDS: Pantoprazole 40 MG GRANULES PACKET PER TUBE SCH (08:43)
[2018-03-30] MEDS: Losartan 25 MG TAB PO SCH (08:43)
[2018-03-30] MEDS: Apixaban 5 MG TAB PO SCH ×2 (08:43→20:40)
[2018-03-30] MEDS: Amiodarone 200 MG TAB PO SCH (08:44)
--- NOTE | 2018-03-30 10:51 | PDOC.PN ---
- Subjective Encounter Start Date: 03/30/18 Encounter Start Time: 10:53 Patient seen and examined today following Acute on chronic respiratory failure. She is s/p trach collar and clinically stable. No changes in her clinical status. She has no new complaints and no acute events overnight. - Objective Resuscitation Status: Resuscitation Status FULL:Full Resuscitation MAR Reviewed: Yes Vital Signs & Weight: Vital Signs (12 hours) Temp Pulse Resp Pulse Ox 03/30/18 08:00 98.3 F 03/30/18 07:37 90 L 03/30/18 07:33 69 22 H 90 L 03/30/18 06:00 17 03/30/18 04:00 98.2 F 17 03/30/18 02:52 65 03/30/18 02:00 20 03/30/18 00:45 66 16 89 L 03/30/18 00:00 98.1 F 16 90 L Weight Admit Weight 600 lb Weight 376 lb 1.738 oz Most Recent Monitor Data Heart Rate from ECG 64 NIBP 162/68 NIBP BP-Mean 85 Respiration from ECG 21 SpO2 85 I&O: 03/29/18 03/30/18 03/31/18 06:59 06:59 06:59 Intake Total 1028 2160 890 Output Total 1378 1005 250 Balance -350 1155 640 Result Diagrams: 03/30/18 05:05 03/30/18 05:05 Phys Exam - Physical Examination Constitutional: NAD HEENT: PERRLA, moist MMs, sclera anicteric Neck: no JVD, supple, full ROM Respiratory: no wheezing, no rales, no rhonchi Cardiovascular: RRR, no significant murmur, no rub Gastrointestinal: soft, non-tender, no distention, positive bowel sounds Musculoskeletal: pulses present, edema present Neurological: non-focal Skin: no rash, normal turgor Dx/Plan (1) Acute and chronic respiratory failure Code(s): J96.20 - ACUTE AND CHR RESP FAILURE, UNSP W HYPOXIA OR HYPERCAPNIA Status: Acute Qualifiers: Respiratory failure complication: hypoxia and hypercapnia Qualified Code(s) : J96.21 - Acute and chronic respiratory failure with hypoxia; J96.22 - Acute and chronic respiratory failure with hypercapnia; J96.22 - Acute and chronic respiratory failure with hypercapnia; J96.22 - Acute and chronic respiratory failure with hypercapnia Comment: Stable. Continue Trach collar trials and nightly mechanical ventilation per pulmonary/critical care. (2) S/P percutaneous endoscopic gastrostomy (PEG) tube placement Code(s): Z93.1 - GASTROSTOMY STATUS Status: Acute Comment: Had procedure on 03/09/18. Stable. (3) Status post tracheostomy Code(s): Z93.0 - TRACHEOSTOMY STATUS Status: Acute Comment: Had procedure on 03/09/18. Stable. (4) Afib Code(s): I48.91 - UNSPECIFIED ATRIAL FIBRILLATION Status: Chronic Qualifiers: Atrial fibrillation type: paroxysmal Qualified Code(s): I48.0 - Paroxysmal atrial fibrillation Comment: Rate controlled. Continue Eliquis, ASA and Amiodarone. (5) Morbid obesity with BMI of 70 and over, adult Code(s): E66.01 - MORBID (SEVERE) OBESITY DUE TO EXCESS CALORIES; Z68.45 - BODY MASS INDEX (BMI) 70 OR GREATER, ADULT Status: Chronic (6) Pickwickian syndrome Code(s): E66.2 - MORBID (SEVERE) OBESITY WITH ALVEOLAR HYPOVENTILATION Status : Chronic Comment: s/p trach collar. (7) Chronic diastolic CHF (congestive heart failure), NYHA class 3 Code(s): I50.32 - CHRONIC DIASTOLIC (CONGESTIVE) HEART FAILURE Status: Chronic Comment: Stable. Diuretics initially held 2/2 azotemia. Will be given PRN. - Plan cont current plan of care, PT/OT, social media manager, respiratory therapy * . Review of Systems - Medications/Allergies Allergies/Adverse Reactions: Allergies Allergy/AdvReac Type Severity Reaction Status Date / Time No Known Drug Allergies Allergy Verified 03/08/18 14:16 Medications: Current Medications Acetaminophen (Tylenol Elixir) 1,000 mg PER TUBE Q6H PRN PRN Reason: Headache/Fever or Pain Last Admin: 03/30/18 01:42 Dose: 1,000 mg Albuterol/Ipratropium (Duoneb) 3 ml NEB [id number] [facility] Last Admin: 03/30/18 07:33 Dose: 3 ml Amiodarone HCl (Cordarone) 200 mg PO DAILY [facility] Last Admin: 03/30/18 08:44 Dose: 200 mg Lipase/Protease/Amylase ([place] [id number]) 1 cap FS .PER PROTOCOL PRN PRN Reason: TUBE OCCLUSION PROTOCOL Apixaban (Eliquis) 5 mg PO BID [facility] Last Admin: 03/30/18 08:43 Dose: 5 mg Aspirin (Aspirin Chewable) 81 mg PO DAILY [facility] Last Admin: 03/30/18 08:44 Dose: 81 mg Clonidine (Catapres) 0.1 mg PO Q4H PRN PRN Reason: Systolic BP > 180 Last Admin: 03/20/18 21:05 Dose: 0.1 mg Hydralazine HCl (Apresoline) 10 mg SLOW IVP Q4H PRN PRN Reason: Systolic BP > 180 Last Admin: 03/14/18 17:06 Dose: 10 mg Losartan Potassium (Cozaar) 25 mg PO DAILY [facility] Last Admin: 03/30/18 08:43 Dose: 25 mg Ondansetron HCl (Zofran Odt) 4 mg PO Q6H PRN PRN Reason: Nausea/Vomiting Last Admin: 03/24/18 11:57 Dose: 4 mg Ondansetron HCl (Zofran) 4 mg IVP Q6H PRN PRN Reason: Nausea/Vomiting Pantoprazole Sodium (Protonix) 40 mg PER TUBE DAILY [facility] Last Admin: 03/30/18 08:43 Dose: 40 mg Sertraline HCl (Zoloft) 50 mg PER TUBE DAILY [facility] Last Admin: 03/30/18 08:43 Dose: 50 mg Sodium Bicarbonate (Bicarbonate, Sodium) 650 mg PER TUBE .PER PROTOCOL PRN PRN Reason: ENTERAL TUBE OCCLUSION Sodium Chloride (Flush - Normal Saline) 10 ml IVF Q12HR [facility] Last Admin: 03/30/18 08:47 Dose: 10 ml Sodium Chloride (Flush - Normal Saline) 10 ml IVF PRN PRN PRN Reason: Saline Flush Last Admin: 03/14/18 08:28 Dose: 10 ml
--- NOTE | 2018-03-30 13:32 | PRG ---
DATE OF SERVICE: 03/30/2018 SUBJECTIVE: Mr. Shanel Sauceda denies being short of breath. OBJECTIVE: VITAL SIGNS: Heart rate in the 60s, respiratory rate is 20, oximetry is 90%, blood pressure 149/54. LUNGS: Remarkable for bilateral mild rhonchi. HEART: Regular rhythm. ABDOMEN: Soft. EXTREMITIES: With asymmetry. NEUROLOGIC: Grossly nonfocal. LABORATORY DATA: White count 7.1, hemoglobin 10.9, platelets 134,000. Sodium 143, potassium 4.5, chloride 103, bicarbonate 36, BUN 43, creatinine 0.7. IMPRESSION: 1. Chronic respiratory failure. 2. Obesity hypoventilation. 3. Extreme deconditioning. 4. Exam consistent with mild retained secretions. 5. History of atrial fibrillation. PLAN: Continue supportive care. She remains anticoagulated and on amiodarone in sinus rhythm.
--- NOTE | 2018-03-31 07:56 | PRG ---
DATE OF SERVICE: 03/31/2018 SUBJECTIVE: The patient seems better today. She is actually smiling for once. OBJECTIVE: VITAL SIGNS: Temperature is 98.1, pulse 74, blood pressure 119/69. A 24-hour intake 3200, output 13 45. HEENT: Unremarkable. NECK: Trach in place. CARDIAC: S1 and S2 regular. LUNGS: Fairly clear. ABDOMEN: Soft, obese, nontender. EXTREMITIES: No clubbing, cyanosis, or edema. LABORATORY DATA: No new labs were done today. ASSESSMENT: 1. Obesity hypoventilation syndrome. 2. Status post tracheostomy placement. 3. Persistent chronic respiratory failure. 4. Paroxysmal atrial fibrillation. PLAN: 1. Reduce the amount of nocturnal ventilation. My hope would be to try to slowly wean her off the n octurnal ventilation over the next week or so. 2. Up in a chair as tolerated. I have emphasized this to the nursing staff that this is very import ant for the patient's care. 3. Continued attempts at placement.
[2018-03-31] MEDS: Losartan 25 MG TAB PO SCH (08:35)
[2018-03-31] MEDS: Pantoprazole 40 MG GRANULES PACKET PER TUBE SCH (08:35)
[2018-03-31] MEDS: Apixaban 5 MG TAB PO SCH ×2 (08:35→21:41)
[2018-03-31] MEDS: Amiodarone 200 MG TAB PO SCH (08:35)
--- NOTE | 2018-03-31 11:34 | PDOC.PN ---
- Subjective Encounter Start Date: 03/31/18 Encounter Start Time: 11:38 Patient seen and examined following Acute on chronic respiratory failure. She is s/p trach collar and clinically stable. No changes in her clinical status. She has no new complaints and no acute events overnight. - Objective Resuscitation Status: Resuscitation Status FULL:Full Resuscitation Vital Signs & Weight: Vital Signs (12 hours) Temp Pulse Resp Pulse Ox 03/31/18 08:00 98.1 F 64 18 87 L 03/31/18 07:35 64 23 H 90 L 03/31/18 06:00 21 H 03/31/18 04:00 98.1 F 17 03/31/18 02:00 18 03/31/18 00:00 98.0 F 17 Weight Admit Weight 600 lb Weight 376 lb 1.738 oz Most Recent Monitor Data Heart Rate from ECG 66 NIBP 140/53 NIBP BP-Mean 70 Respiration from ECG 20 SpO2 90 I&O: 03/30/18 03/31/18 04/01/18 06:59 06:59 06:59 Intake Total 2160 3200 370 Output Total 1005 1345 205 Balance 1155 1855 165 Result Diagrams: 03/30/18 05:05 03/30/18 05:05 Phys Exam - Physical Examination Constitutional: NAD HEENT: PERRLA, moist MMs, sclera anicteric Neck: supple, full ROM Respiratory: no wheezing, no rales, no rhonchi, clear to auscultation bilateral Cardiovascular: RRR, no significant murmur, no rub Gastrointestinal: soft, non-tender, no distention, positive bowel sounds Musculoskeletal: no edema, pulses present Skin: no rash, normal turgor Dx/Plan (1) Acute and chronic respiratory failure Code(s): J96.20 - ACUTE AND CHR RESP FAILURE, UNSP W HYPOXIA OR HYPERCAPNIA Status: Acute Qualifiers: Respiratory failure complication: hypoxia and hypercapnia Qualified Code(s) : J96.21 - Acute and chronic respiratory failure with hypoxia; J96.22 - Acute and chronic respiratory failure with hypercapnia; J96.22 - Acute and chronic respiratory failure with hypercapnia; J96.22 - Acute and chronic respiratory failure with hypercapnia Comment: Stable. Continue Trach collar trials and nightly mechanical ventilation per pulmonary/critical care. Patient is to be weaned off mechanical ventilation over the next week. (2) S/P percutaneous endoscopic gastrostomy (PEG) tube placement Code(s): Z93.1 - GASTROSTOMY STATUS Status: Acute Comment: Had procedure on 03/09/18. Stable. (3) Status post tracheostomy Code(s): Z93.0 - TRACHEOSTOMY STATUS Status: Acute Comment: Had procedure on 03/09/18. Stable. (4) Afib Code(s): I48.91 - UNSPECIFIED ATRIAL FIBRILLATION Status: Chronic Qualifiers: Atrial fibrillation type: paroxysmal Qualified Code(s): I48.0 - Paroxysmal atrial fibrillation Comment: Rate controlled. Continue Eliquis, ASA and Amiodarone. (5) Morbid obesity with BMI of 70 and over, adult Code(s): E66.01 - MORBID (SEVERE) OBESITY DUE TO EXCESS CALORIES; Z68.45 - BODY MASS INDEX (BMI) 70 OR GREATER, ADULT Status: Chronic (6) Pickwickian syndrome Code(s): E66.2 - MORBID (SEVERE) OBESITY WITH ALVEOLAR HYPOVENTILATION Status : Chronic Comment: s/p trach collar. (7) Chronic diastolic CHF (congestive heart failure), NYHA class 3 Code(s): I50.32 - CHRONIC DIASTOLIC (CONGESTIVE) HEART FAILURE Status: Chronic Comment: Stable. Diuretics initially held 2/2 azotemia. Will be given PRN. - Plan cont current plan of care, koch catheter, PT/OT, social work job titles, respiratory therapy, out of bed/ambulate Continue current management manager production working on possible placement options- patient unfunded/uninsured. Review of Systems - Medications/Allergies Allergies/Adverse Reactions: Allergies Allergy/AdvReac Type Severity Reaction Status Date / Time No Known Drug Allergies Allergy Verified 03/08/18 14:16 Medications: Current Medications Acetaminophen (Tylenol Elixir) 1,000 mg PER TUBE Q6H PRN PRN Reason: Headache/Fever or Pain Last Admin: 03/30/18 01:42 Dose: 1,000 mg Albuterol/Ipratropium (Duoneb) 3 ml NEB R3PT-CK HEIKE Last Admin: 03/31/18 07:35 Dose: 3 ml Amiodarone HCl (Cordarone) 200 mg PO DAILY [facility]IKE Last Admin: 03/31/18 08:35 Dose: 200 mg Lipase/Protease/[place] ([place] [id number]) 1 cap FS .PER PROTOCOL PRN PRN Reason: TUBE OCCLUSION PROTOCOL Apixaban (Eliquis) 5 mg PO BID [facility] Last Admin: 03/31/18 08:35 Dose: 5 mg Aspirin (Aspirin Chewable) 81 mg PO DAILY [facility] Last Admin: 03/31/18 08:35 Dose: 81 mg Clonidine (Catapres) 0.1 mg PO Q4H PRN PRN Reason: Systolic BP > 180 Last Admin: 03/20/18 21:05 Dose: 0.1 mg Hydralazine HCl (Apresoline) 10 mg SLOW IVP Q4H PRN PRN Reason: Systolic BP > 180 Last Admin: 03/14/18 17:06 Dose: 10 mg Losartan Potassium (Cozaar) 25 mg PO DAILY [facility] Last Admin: 03/31/18 08:35 Dose: 25 mg Ondansetron HCl (Zofran Odt) 4 mg PO Q6H PRN PRN Reason: Nausea/Vomiting Last Admin: 03/24/18 11:57 Dose: 4 mg Ondansetron HCl (Zofran) 4 mg IVP Q6H PRN PRN Reason: Nausea/Vomiting Pantoprazole Sodium (Protonix) 40 mg PER TUBE DAILY [facility] Last Admin: 03/31/18 08:35 Dose: 40 mg Sertraline HCl (Zoloft) 100 mg PER TUBE DAILY [facility] Last Admin: 03/31/18 08:36 Dose: 100 mg Sodium Bicarbonate (Bicarbonate, Sodium) 650 mg PER TUBE .PER PROTOCOL PRN PRN Reason: ENTERAL TUBE OCCLUSION Sodium Chloride (Flush - Normal Saline) 10 ml IVF Q12HR [facility] Last Admin: 03/31/18 08:36 Dose: 10 ml Sodium Chloride (Flush - Normal Saline) 10 ml IVF PRN PRN PRN Reason: Saline Flush Last Admin: 03/14/18 08:28 Dose: 10 ml
[2018-04-01 04:40] LABS: Anion Gap 9 mmol/L (10-20); BUN (Urea Nitrogen) 46 mg/dL (9.8-20.1); Calc. Creatinine Clearance 209 mL/min (70-130); Calcium 9.3 mg/dL (7.8-10.44); Carbon Dioxide 35 mmol/L (23-31); Chloride 103 mmol/L (98-107); Estimated GFR-MDRD 77; Glucose 92 mg/dL (80-115); Potassium 4.4 mmol/L (3.5-5.1); Sodium 143 mmol/L (136-145)
[2018-04-01 05:08] LABS: Anisocytosis SLIGHT = 6-15 cells (100X) (0-5/hpf); Band 7 % (5-11); Eosinophils 10 % (0-10); Lymphocytes 9 % (21-51); MDiff Complete? YES; Mean Corpuscular HGB CONC 29.2 g/dL (32.0-36.0); Mean Corpuscular Hemoglobin 25.9 pg (27.0-31.0); Mean Corpuscular Volume 88.5 fl (81.0-99.0); Mean Platelet Volume 10.4 fL (7.4-10.4); Monocytes 12 % (0-10); Neutrophil 61 % (42-75); PLT Morphology Comment Appears Decreased; Platelet Count 104 thou/uL (130-400); RBC Distribution Width 22.3 % (11.5-14.5); Red Blood Cell (RBC) Count 4.24 mill/uL (4.20-5.40); White Blood Cell (WBC) Count 6.7 thou/uL (4.8-10.8)
--- NOTE | 2018-04-01 07:32 | PRG ---
DATE OF SERVICE: 04/01/2018 Ms. Sauceda remains intermittently on mechanical ventilation she only used between midnight and 6:00 a .m. She did well yesterday. She was able to get up in a chair for about 1.5 hours. PHYSICAL EXAMINATION: VITAL SIGNS: Her temperature is 98.0, pulse 69, blood pressure 118/52, O2 sat generally in the upper 80s. Total intake for 24 hours 1920, output 1059. HEENT: Unremarkable. NECK: No JVD. LUNGS: Clear. CARDIAC: S1 and S2 regular. ABDOMEN: Soft, obese, nontender. PEG site looks good. EXTREMITIES: Trace edema. LABORATORY DATA: White blood cell count 6.7, hematocrit 37.5, platelet count 104. Sodium 143, potas sium 4.4, chloride 103, CO2 35, BUN 46, creatinine 0.7, glucose 92. ASSESSMENT: 1. No change in overall condition. She has obesity hypoventilation syndrome and we are trying to re duce the number of hours of mechanical ventilation slowly. 2. Developing mild thrombocytopenia. PLAN: 1. Monitor platelet count. 2. Continue 12 a.m. to 6:00 a.m. mechanical ventilation. 3. Up in a chair as tolerated.
[2018-04-01] MEDS: Amiodarone 200 MG TAB PO SCH (08:20)
[2018-04-01] MEDS: Apixaban 5 MG TAB PO SCH ×2 (08:21→20:28)
[2018-04-01] MEDS: Losartan 25 MG TAB PO SCH (08:21)
[2018-04-01] MEDS: Pantoprazole 40 MG GRANULES PACKET PER TUBE SCH (08:21)
--- NOTE | 2018-04-01 10:29 | PDOC.PN ---
- Subjective Encounter Start Date: 04/01/18 Encounter Start Time: 10:31 Patient seen and examined following Acute on chronic respiratory failure. She has had a prolonged ICU stay due to being unfunded- leading to difficulties in arranging placement. She remains in the CCU, is s/p trach collar and clinically stable. She receives nocturnal ventilation and is on her trach collar during the day. There has been no changes in her clinical status and she is otherwise stable. She has no new complaints and had no acute events overnight. - Objective Resuscitation Status: Resuscitation Status FULL:Full Resuscitation MAR Reviewed: Yes Vital Signs & Weight: Vital Signs (12 hours) Temp Pulse Resp Pulse Ox 04/01/18 07:21 98.6 F 67 20 89 L 04/01/18 07:00 98.6 F 04/01/18 06:35 71 23 H 90 L 04/01/18 06:00 26 H 04/01/18 04:00 98.0 F 19 04/01/18 02:00 19 04/01/18 00:32 18 04/01/18 00:00 98.3 F 03/31/18 23:32 70 20 90 L Weight Admit Weight 600 lb Weight 376 lb 1.738 oz Most Recent Monitor Data Heart Rate from ECG 71 NIBP 133/56 NIBP BP-Mean 76 Respiration from ECG 24 SpO2 93 I&O: 03/31/18 04/01/18 04/02/18 06:59 06:59 06:59 Intake Total 3200 1920 430 Output Total 1345 1059 102 Balance 1855 861 328 Result Diagrams: 04/01/18 03:30 04/01/18 03:30 Phys Exam - Physical Examination Constitutional: NAD HEENT: PERRLA, moist MMs, sclera anicteric Neck: supple, full ROM Respiratory: no wheezing, no rales, no rhonchi recuded breath sounds b/l Cardiovascular: RRR, no significant murmur, no rub Gastrointestinal: soft, non-tender, no distention, positive bowel sounds Musculoskeletal: no edema, pulses present Neurological: non-focal Skin: no rash, normal turgor Dx/Plan (1) Acute and chronic respiratory failure Code(s): J96.20 - ACUTE AND CHR RESP FAILURE, UNSP W HYPOXIA OR HYPERCAPNIA Status: Acute Qualifiers: Respiratory failure complication: hypoxia and hypercapnia Qualified Code(s) : J96.21 - Acute and chronic respiratory failure with hypoxia; J96.22 - Acute and chronic respiratory failure with hypercapnia; J96.22 - Acute and chronic respiratory failure with hypercapnia; J96.22 - Acute and chronic respiratory failure with hypercapnia Comment: Stable. (2) S/P percutaneous endoscopic gastrostomy (PEG) tube placement Code(s): Z93.1 - GASTROSTOMY STATUS Status: Acute Comment: Had procedure on 03/09/18. Stable. (3) Status post tracheostomy Code(s): Z93.0 - TRACHEOSTOMY STATUS Status: Acute Comment: Had procedure on 03/09/18. Stable. (4) Afib Code(s): I48.91 - UNSPECIFIED ATRIAL FIBRILLATION Status: Chronic Qualifiers: Atrial fibrillation type: paroxysmal Qualified Code(s): I48.0 - Paroxysmal atrial fibrillation Comment: Rate controlled. Continue Eliquis, ASA and Amiodarone. (5) Morbid obesity with BMI of 70 and over, adult Code(s): E66.01 - MORBID (SEVERE) OBESITY DUE TO EXCESS CALORIES; Z68.45 - BODY MASS INDEX (BMI) 70 OR GREATER, ADULT Status: Chronic (6) Pickwickian syndrome Code(s): E66.2 - MORBID (SEVERE) OBESITY WITH ALVEOLAR HYPOVENTILATION Status : Chronic Comment: s/p trach collar. (7) Chronic diastolic CHF (congestive heart failure), NYHA class 3 Code(s): I50.32 - CHRONIC DIASTOLIC (CONGESTIVE) HEART FAILURE Status: Chronic Comment: Stable. Diuretics initially held 2/2 azotemia. Will be given PRN. (8) Thrombocytopenia Code(s): D69.6 - THROMBOCYTOPENIA, UNSPECIFIED Status: Acute - Plan cont current plan of care Continue Trach collar trials and nightly mechanical ventilation per pulmonary/ critical care. Patient is to be weaned off mechanical ventilation over the next week. Monitor platelets artist manager working on disposition. Review of Systems - Medications/Allergies Allergies/Adverse Reactions: Allergies Allergy/AdvReac Type Severity Reaction Status Date / Time No Known Drug Allergies Allergy Verified 03/08/18 14:16 Medications: Current Medications Acetaminophen (Tylenol Elixir) 1,000 mg PER TUBE Q6H PRN PRN Reason: Headache/Fever or Pain Last Admin: 03/30/18 01:42 Dose: 1,000 mg Albuterol/Ipratropium (Duoneb) 3 ml NEB [id number] [facility] Last Admin: 04/01/18 06:35 Dose: 3 ml Amiodarone HCl (Cordarone) 200 mg PO DAILY [facility] Last Admin: 04/01/18 08:20 Dose: 200 mg Lipase/Protease/Amylase ([place] [id number]) 1 cap FS .PER PROTOCOL PRN PRN Reason: TUBE OCCLUSION PROTOCOL Apixaban (Eliquis) 5 mg PO BID [facility] Last Admin: 04/01/18 08:21 Dose: 5 mg Aspirin (Aspirin Chewable) 81 mg PO DAILY [facility] Last Admin: 04/01/18 08:21 Dose: 81 mg Clonidine (Catapres) 0.1 mg PO Q4H PRN PRN Reason: Systolic BP > 180 Last Admin: 03/20/18 21:05 Dose: 0.1 mg Hydralazine HCl (Apresoline) 10 mg SLOW IVP Q4H PRN PRN Reason: Systolic BP > 180 Last Admin: 03/14/18 17:06 Dose: 10 mg Losartan Potassium (Cozaar) 25 mg PO DAILY [facility] Last Admin: 04/01/18 08:21 Dose: 25 mg Ondansetron HCl (Zofran Odt) 4 mg PO Q6H PRN PRN Reason: Nausea/Vomiting Last Admin: 03/24/18 11:57 Dose: 4 mg Ondansetron HCl (Zofran) 4 mg IVP Q6H PRN PRN Reason: Nausea/Vomiting Pantoprazole Sodium (Protonix) 40 mg PER TUBE DAILY [facility] Last Admin: 04/01/18 08:21 Dose: 40 mg Sertraline HCl (Zoloft) 100 mg PER TUBE DAILY [facility] Last Admin: 04/01/18 08:21 Dose: 100 mg Sodium Bicarbonate (Bicarbonate, Sodium) 650 mg PER TUBE .PER PROTOCOL PRN PRN Reason: ENTERAL TUBE OCCLUSION Sodium Chloride (Flush - Normal Saline) 10 ml IVF Q12HR [facility] Last Admin: 04/01/18 08:21 Dose: 10 ml Sodium Chloride (Flush - Normal Saline) 10 ml IVF PRN PRN PRN Reason: Saline Flush Last Admin: 03/14/18 08:28 Dose: 10 ml
[2018-04-02 06:40] LABS: BUN (Urea Nitrogen) 49 mg/dL (9.8-20.1); Calc. Creatinine Clearance 204 mL/min (70-130); Calcium 9.1 mg/dL (7.8-10.44); Estimated GFR-MDRD 75; Glucose 94 mg/dL (80-115)
[2018-04-02 06:50] LABS: Anion Gap 14 mmol/L (10-20); Carbon Dioxide 32 mmol/L (23-31); Chloride 103 mmol/L (98-107); Potassium 4.3 mmol/L (3.5-5.1); Sodium 145 mmol/L (136-145)
[2018-04-02 06:58] LABS: Hemoglobin 10.6 g/dL (12.0-16.0); Mean Corpuscular HGB CONC 28.7 g/dL (32.0-36.0); Mean Corpuscular Hemoglobin 25.6 pg (27.0-31.0); Mean Corpuscular Volume 89.2 fl (81.0-99.0); Mean Platelet Volume 10.2 fL (7.4-10.4); Platelet Count 95 thou/uL (130-400); RBC Distribution Width 22.5 % (11.5-14.5); Red Blood Cell (RBC) Count 4.13 mill/uL (4.20-5.40); White Blood Cell (WBC) Count 5.9 thou/uL (4.8-10.8)
[2018-04-02 08:16] LABS: Band 16 % (5-11); Eosinophils 10 % (0-10); Lymphocytes 10 % (21-51); Monocytes 9 % (0-10); Neutrophil 44 % (42-75); Reactive Lymphocytes 8 % (0-10)
[2018-04-02 08:20] LABS: Anisocytosis MODERATE=16-30 cells (100X) (0-5/hpf); MDiff Complete? YES; PLT Morphology Comment Appears Decreased; Polychromasia SLIGHT = 2-3 cells (100X) (0-2/hpf)
--- NOTE | 2018-04-02 08:52 | PRG ---
DATE OF SERVICE: 04/02/2018 SUBJECTIVE: Patient did okay yesterday. PHYSICAL EXAMINATION: VITAL SIGNS: Temperature is 98.4, pulse 62, blood pressure 97/41, O2 sat 91% on trach collar. HEENT: Unremarkable. Trach in good position. LUNGS: Coarse rhonchi. CARDIAC: S1 and S2 regular. ABDOMEN: Soft. EXTREMITIES: Brawny edema. LABORATORY DATA: Sodium 145, potassium 4.3, chloride 103, CO2 32, BUN 49, creatinine 0.7, glucose 94 . White blood cell count 5.9, hematocrit 36.8, platelet count 95. ASSESSMENT: 1. Acute on chronic respiratory failure. 2. Obesity hypoventilation syndrome. 3. Slightly worse thrombocytopenia 4. Severe deconditioning. PLAN: 1. At the very least due to her bleeding risk, I would reduce the Eliquis dose. I will review the o ther drugs to see if anything causes thrombocytopenia. 2. Decrease the length of time of trach collar.
[2018-04-02] MEDS: Pantoprazole 40 MG GRANULES PACKET PER TUBE SCH (09:16)
[2018-04-02] MEDS: Losartan 25 MG TAB PO SCH (09:16)
[2018-04-02] MEDS: Amiodarone 200 MG TAB PO SCH (09:16)
[2018-04-02] MEDS: Apixaban 5 MG TAB PO SCH ×2 (09:25→21:56)
[2018-04-02] MEDS: buPROPion 75 MG TAB PER TUBE SCH ×2 (10:49→21:56)
--- NOTE | 2018-04-02 18:22 | PDOC.PN ---
- Subjective Encounter Start Date: 04/02/18 Encounter Start Time: 17:00 Having some pain with bolus feeds. No other issues reported. - Objective Resuscitation Status: Resuscitation Status FULL:Full Resuscitation Vital Signs & Weight: Vital Signs (12 hours) Temp Pulse Pulse Pulse Resp BP BP 04/02/18 12:19 63 17 04/02/18 10:45 69 66 107/52 L 04/02/18 10:00 97.9 F 04/02/18 08:00 98.1 F 63 17 04/02/18 07:00 98.1 F 04/02/18 06:49 66 94/41 L 04/02/18 06:47 68 24 H BP Pulse Ox 04/02/18 12:19 91 L 04/02/18 10:45 129/66 04/02/18 10:00 04/02/18 08:00 85 L 04/02/18 07:00 04/02/18 06:49 04/02/18 06:47 92 L Weight Admit Weight 600 lb Weight 376 lb 1.738 oz Most Recent Monitor Data Heart Rate from ECG 63 NIBP 117/46 NIBP BP-Mean 61 Respiration from ECG 20 SpO2 86 I&O: 04/01/18 04/02/18 04/03/18 06:59 06:59 06:59 Intake Total 1920 1680 666 Output Total 1059 1075 305 Balance 861 605 361 Result Diagrams: 04/02/18 06:16 04/02/18 06:16 Phys Exam - Physical Examination HEENT: PERRLA, moist MMs Trach Respiratory: no wheezing, no rales, no rhonchi, clear to auscultation bilateral Cardiovascular: RRR, no significant murmur Gastrointestinal: soft, non-tender, no distention Substantial edema with chronic stasis dermatitis Neurological: non-focal Dx/Plan (1) Acute and chronic respiratory failure Code(s): J96.20 - ACUTE AND CHR RESP FAILURE, UNSP W HYPOXIA OR HYPERCAPNIA Status: Acute Qualifiers: Respiratory failure complication: hypoxia and hypercapnia Qualified Code(s) : J96.21 - Acute and chronic respiratory failure with hypoxia; J96.22 - Acute and chronic respiratory failure with hypercapnia; J96.22 - Acute and chronic respiratory failure with hypercapnia; J96.22 - Acute and chronic respiratory failure with hypercapnia Comment: Stable. (2) S/P percutaneous endoscopic gastrostomy (PEG) tube placement Code(s): Z93.1 - GASTROSTOMY STATUS Status: Acute Comment: Had procedure on 03/09/18. Stable. (3) Status post tracheostomy Code(s): Z93.0 - TRACHEOSTOMY STATUS Status: Acute Comment: Had procedure on 03/09/18. Stable. (4) Thrombocytopenia Code(s): D69.6 - THROMBOCYTOPENIA, UNSPECIFIED Status: Acute (5) Acute on chronic diastolic (congestive) heart failure Code(s): I50.33 - ACUTE ON CHRONIC DIASTOLIC (CONGESTIVE) HEART FAILURE Status : Chronic Comment: Rate controlled. (6) Afib Code(s): I48.91 - UNSPECIFIED ATRIAL FIBRILLATION Status: Chronic Qualifiers: Atrial fibrillation type: paroxysmal Qualified Code(s): I48.0 - Paroxysmal atrial fibrillation Comment: Rate controlled. Continue Eliquis, ASA and Amiodarone. (7) Chronic diastolic CHF (congestive heart failure), NYHA class 3 Code(s): I50.32 - CHRONIC DIASTOLIC (CONGESTIVE) HEART FAILURE Status: Chronic Comment: Stable. Diuretics initially held 2/2 azotemia. Will be given PRN. - Plan * Discussed with nursing. * The bolus feeds are being held. * Will resume some lower volume continuous feeds tomorrow. * Thrombocytopenia slightly worse today. Continue to monitor. CC looking to possible drug related issues.
[2018-04-03 03:45] LABS: #Basophils 0.1 thou/uL (0.0-0.2); #Eosinphils 0.7 thou/uL (0.0-0.7); #Lymphocytes 0.9 thou/uL (1.20-3.40); #Monocytes 0.9 thou/uL (0.11-0.59); #Neutrophils 3.9 thou/uL (1.40-6.50); %Basophils 1.3 % (0.0-1.0); %Eosinophils 11.1 % (0.0-10.0); %Lymphocytes 14.2 % (21.0-51.0); %Monocytes 13.2 % (0.0-10.0); %Neutrophils 60.2 % (42.0-75.0); Hemoglobin 10.5 g/dL (12.0-16.0); Mean Corpuscular HGB CONC 30.2 g/dL (32.0-36.0); Mean Corpuscular Hemoglobin 26.8 pg (27.0-31.0); Mean Platelet Volume 10.4 fL (7.4-10.4); Platelet Count 88 thou/uL (130-400); RBC Distribution Width 22.6 % (11.5-14.5); Red Blood Cell (RBC) Count 3.92 mill/uL (4.20-5.40); White Blood Cell (WBC) Count 6.5 thou/uL (4.8-10.8)
[2018-04-03 03:59] LABS: Anion Gap 7 mmol/L (10-20); BUN (Urea Nitrogen) 46 mg/dL (9.8-20.1); Calc. Creatinine Clearance 207 mL/min (70-130); Calcium 9.3 mg/dL (7.8-10.44); Carbon Dioxide 37 mmol/L (23-31); Chloride 104 mmol/L (98-107); Estimated GFR-MDRD 76; Glucose 95 mg/dL (80-115); Potassium 4.2 mmol/L (3.5-5.1); Sodium 144 mmol/L (136-145)
[2018-04-03] MEDS: Losartan 25 MG TAB PO SCH (08:50)
[2018-04-03] MEDS: Apixaban 5 MG TAB PO SCH ×2 (08:50→20:36)
[2018-04-03] MEDS: Amiodarone 200 MG TAB PO SCH (08:50)
[2018-04-03] MEDS: Pantoprazole 40 MG GRANULES PACKET PER TUBE SCH (08:50)
[2018-04-03] MEDS: buPROPion 75 MG TAB PER TUBE SCH ×2 (08:50→20:36)
[2018-04-03] MEDS: Ondansetron ODT 4 MG TAB PO PRN (09:09)
--- NOTE | 2018-04-03 11:55 | PRG ---
DATE OF SERVICE: 04/03/2018 SUBJECTIVE: The patient remains on mechanical ventilation 4 hours per night, so far that has worked out well. PHYSICAL EXAMINATION: VITAL SIGNS: Her temperature is 98.1, pulse 65, blood pressure 144/61. A 24-hour intake 1316, outpu t 968. HEENT: Unremarkable. NECK: Trach in good position. LUNGS: Fairly clear. CARDIAC: S1 and S2 regular. ABDOMEN: Soft. EXTREMITIES: No overt edema. LABORATORY DATA: Sodium 144, potassium 4.2, chloride 104, CO2 37, BUN 46, creatinine 0.7, glucose 95 , white blood cell count 6.5, hematocrit 34.9, platelet count 88. ASSESSMENT: 1. Chronic respiratory failure requiring tracheostomy and nighttime mechanical ventilation. 2. Obesity hypoventilation syndrome. 3. Thrombocytopenia - after doing a drug checked yesterday with the Pharm.D, we feel that this is pr obably the Zoloft that did this. The Zoloft was stopped yesterday and she was changed to bupropion. 4. Severe deconditioning. PLAN: 1. Hold the Zoloft. Continue bupropion. 2. If the thrombocytopenia worsens, we will need to stop Eliquis. 3. Continue 4 hours a night on mechanical ventilation. Next week, I will try to eliminate nighttime mechanical ventilation completely.
--- NOTE | 2018-04-03 16:55 | PDOC.PN ---
- Subjective Encounter Start Date: 04/03/18 Encounter Start Time: 14:30 Reports modest improvement with the change to continuous feeds rather than bolus feeds. - Objective Resuscitation Status: Resuscitation Status FULL:Full Resuscitation Vital Signs & Weight: Vital Signs (12 hours) Temp Pulse Resp Pulse Ox 04/03/18 16:00 98.3 F 04/03/18 13:13 79 20 88 L 04/03/18 12:00 98.0 F 04/03/18 08:00 99.2 F 73 16 90 L 04/03/18 07:33 99 04/03/18 07:30 73 16 89 L 04/03/18 07:00 99.2 F Weight Admit Weight 600 lb Weight 376 lb 1.738 oz Most Recent Monitor Data Heart Rate from ECG 79 NIBP 130/63 NIBP BP-Mean 75 Respiration from ECG 15 SpO2 86 I&O: 04/02/18 04/03/18 04/04/18 06:59 06:59 06:59 Intake Total 1680 1316 740 Output Total 1075 968 374 Balance 605 348 366 Result Diagrams: 04/03/18 03:09 04/03/18 03:09 Phys Exam - Physical Examination Constitutional: NAD Trached, morbidly obese HEENT: PERRLA Neck: no JVD Respiratory: no wheezing, no rales, no rhonchi, clear to auscultation bilateral Cardiovascular: RRR, no significant murmur, no rub Gastrointestinal: soft, no distention LE edema with some superficial blistering. Chronic erythema. Dx/Plan (1) Acute and chronic respiratory failure Code(s): J96.20 - ACUTE AND CHR RESP FAILURE, UNSP W HYPOXIA OR HYPERCAPNIA Status: Acute Qualifiers: Respiratory failure complication: hypoxia and hypercapnia Qualified Code(s) : J96.21 - Acute and chronic respiratory failure with hypoxia; J96.22 - Acute and chronic respiratory failure with hypercapnia; J96.22 - Acute and chronic respiratory failure with hypercapnia; J96.22 - Acute and chronic respiratory failure with hypercapnia Comment: Stable. (2) S/P percutaneous endoscopic gastrostomy (PEG) tube placement Code(s): Z93.1 - GASTROSTOMY STATUS Status: Acute Comment: Had procedure on 03/09/18. Stable. (3) Status post tracheostomy Code(s): Z93.0 - TRACHEOSTOMY STATUS Status: Acute Comment: Had procedure on 03/09/18. Stable. (4) Thrombocytopenia Code(s): D69.6 - THROMBOCYTOPENIA, UNSPECIFIED Status: Acute (5) Acute on chronic diastolic (congestive) heart failure Code(s): I50.33 - ACUTE ON CHRONIC DIASTOLIC (CONGESTIVE) HEART FAILURE Status : Chronic Comment: Rate controlled. (6) Afib Code(s): I48.91 - UNSPECIFIED ATRIAL FIBRILLATION Status: Chronic Qualifiers: Atrial fibrillation type: paroxysmal Qualified Code(s): I48.0 - Paroxysmal atrial fibrillation Comment: Rate controlled. Continue Eliquis, ASA and Amiodarone. (7) Chronic diastolic CHF (congestive heart failure), NYHA class 3 Code(s): I50.32 - CHRONIC DIASTOLIC (CONGESTIVE) HEART FAILURE Status: Chronic Comment: Stable. Diuretics initially held 2/2 azotemia. Will be given PRN. - Plan * As above.
[2018-04-04 04:36] LABS: Anion Gap 8 mmol/L (10-20); BUN (Urea Nitrogen) 49 mg/dL (9.8-20.1); Band 5 % (5-11); Calc. Creatinine Clearance 177 mL/min (70-130); Calcium 9.2 mg/dL (7.8-10.44); Carbon Dioxide 37 mmol/L (23-31); Chloride 102 mmol/L (98-107); Eosinophils 8 % (0-10); Estimated GFR-MDRD 64; Glucose 107 mg/dL (80-115); Hemoglobin 10.1 g/dL (12.0-16.0); Hypochromia SLIGHT = 6-15 cells (100X) (0-5/hpf); Lymphocytes 18 % (21-51); MDiff Complete? YES; Mean Corpuscular HGB CONC 28.2 g/dL (32.0-36.0); Mean Corpuscular Hemoglobin 25.9 pg (27.0-31.0); Mean Corpuscular Volume 91.8 fl (81.0-99.0); Mean Platelet Volume 10.4 fL (7.4-10.4); Monocytes 20 % (0-10); Neutrophil 49 % (42-75); PLT Morphology Comment Appears Decreased; Platelet Count 89 thou/uL (130-400); Potassium 4.4 mmol/L (3.5-5.1); RBC Distribution Width 22.7 % (11.5-14.5); Red Blood Cell (RBC) Count 3.88 mill/uL (4.20-5.40); Sodium 143 mmol/L (136-145)
[2018-04-04] MEDS: Apixaban 5 MG TAB PO SCH ×2 (09:08→22:12)
[2018-04-04] MEDS: Losartan 25 MG TAB PO SCH (09:08)
[2018-04-04] MEDS: Pantoprazole 40 MG GRANULES PACKET PER TUBE SCH (09:08)
[2018-04-04] MEDS: Amiodarone 200 MG TAB PO SCH (09:08)
[2018-04-04] MEDS: buPROPion 75 MG TAB PER TUBE SCH ×2 (09:08→22:12)
--- NOTE | 2018-04-04 12:16 | PRG ---
DATE OF SERVICE: 04/04/2018 SUBJECTIVE: Ms. Sauceda slept 4 hours on the ventilator last night. She is in no distress. She says she feels fine. OBJECTIVE: VITAL SIGNS: She is afebrile, heart rate is 66, blood pressure 126/50. LUNGS: Clear. HEART: Regular rhythm. S1 and S2 are normal. ABDOMEN: Soft and nontender. EXTREMITIES: Without asymmetry. NEUROLOGIC: Nonfocal. LABORATORY DATA: White count 6.0, hemoglobin 10.1, platelets 89,000. Sodium 143, potassium is 4.4, chloride 102, bicarbonate 37, BUN 49, creatinine 0.9. ASSESSMENT AND PLAN: She is receiving four 300 mL (300 calorie) boluses of feedings per day as for a total of 1200 calories per day. I doubt she has burning 1200 calories a day and we could consider c utting her back to 900 to 1000. In my opinion given that the biggest problem here is her life threat ening obesity. We will try cutting her mechanical ventilation back to 3 hours tonight. Critical care time was 30 minutes.
--- NOTE | 2018-04-04 23:21 | PDOC.PN ---
- Subjective Encounter Start Date: 04/04/18 Encounter Start Time: 10:30 Patient seen and examined for Resp failure. No new complaints. No overnight events - Objective Resuscitation Status: Resuscitation Status FULL:Full Resuscitation MAR Reviewed: Yes Vital Signs & Weight: Vital Signs (12 hours) Temp Pulse Pulse Pulse Resp BP BP 04/04/18 23:12 66 18 04/04/18 20:00 98.2 F 66 19 04/04/18 19:00 98.2 F 04/04/18 18:34 70 22 H 04/04/18 16:00 98.7 F 04/04/18 14:15 66 74 115/49 L 137/60 04/04/18 13:06 64 20 04/04/18 12:00 97.6 F Pulse Ox Pulse Ox Pulse Ox 04/04/18 23:12 92 L 04/04/18 20:00 90 L 04/04/18 19:00 04/04/18 18:34 90 L 04/04/18 16:00 04/04/18 14:15 88 L 89 L 04/04/18 13:06 92 L 04/04/18 12:00 Weight Admit Weight 600 lb Weight 376 lb 1.738 oz Most Recent Monitor Data Heart Rate from ECG 66 NIBP 128/63 NIBP BP-Mean 82 Respiration from ECG 19 SpO2 93 I&O: 04/03/18 04/04/18 04/05/18 06:59 06:59 06:59 Intake Total 1316 1540 2090 Output Total 968 649 710 Balance 167 365 5550 Result Diagrams: 04/05/18 03:40 04/05/18 03:40 EKG Reviewed by me: Yes (Tele SR) Phys Exam - Physical Examination Constitutional: NAD Respiratory: no wheezing, no rhonchi Cardiovascular: RRR, no rub Gastrointestinal: soft Dx/Plan (1) Acute respiratory failure with hypoxia and hypercapnia Code(s): J96.01 - ACUTE RESPIRATORY FAILURE WITH HYPOXIA; J96.02 - ACUTE RESPIRATORY FAILURE WITH HYPERCAPNIA Status: Acute (2) Morbid obesity with BMI of 60.0-69.9, adult Code(s): E66.01 - MORBID (SEVERE) OBESITY DUE TO EXCESS CALORIES; Z68.44 - BODY MASS INDEX (BMI) 60.0-69.9, ADULT Status: Chronic (3) Chronic a-fib Code(s): I48.2 - CHRONIC ATRIAL FIBRILLATION Status: Chronic Comment: on anticoag/Amidarone (4) S/P percutaneous endoscopic gastrostomy (PEG) tube placement Code(s): Z93.1 - GASTROSTOMY STATUS Status: Acute Comment: Had procedure on 03/09/18. Stable. (5) Status post tracheostomy Code(s): Z93.0 - TRACHEOSTOMY STATUS Status: Acute Comment: Had procedure on 03/09/18. Stable. (6) Acute on chronic diastolic (congestive) heart failure Code(s): I50.33 - ACUTE ON CHRONIC DIASTOLIC (CONGESTIVE) HEART FAILURE Status : Chronic - Plan cont current plan of care Cont current meds as below Review of Systems - Review of Systems Cardiovascular: negative: chest pain, palpitations, orthopnea, paroxysmal nocturnal dyspnea, edema, light headedness, other - Medications/Allergies Allergies/Adverse Reactions: Allergies Allergy/AdvReac Type Severity Reaction Status Date / Time No Known Drug Allergies Allergy Verified 03/08/18 14:16 Medications: Current Medications Acetaminophen (Tylenol Elixir) 1,000 mg PER TUBE Q6H PRN PRN Reason: Headache/Fever or Pain Last Admin: 03/30/18 01:42 Dose: 1,000 mg Albuterol/Ipratropium (Duoneb) 3 ml NEB [id number] [facility] Last Admin: 04/04/18 23:12 Dose: 3 ml Amiodarone HCl (Cordarone) 200 mg PO DAILY [facility] Last Admin: 04/04/18 09:08 Dose: 200 mg Lipase/Protease/Amylase ([place] [id number]) 1 cap FS .PER PROTOCOL PRN PRN Reason: TUBE OCCLUSION PROTOCOL Apixaban (Eliquis) 5 mg PO BID [facility] Last Admin: 04/04/18 22:12 Dose: 5 mg Aspirin (Aspirin Chewable) 81 mg PO DAILY [facility] Last Admin: 04/01/18 08:21 Dose: 81 mg Bupropion HCl (Wellbutrin) 75 mg PER TUBE BID [facility] Last Admin: 04/04/18 22:12 Dose: 75 mg Clonidine (Catapres) 0.1 mg PO Q4H PRN PRN Reason: Systolic BP > 180 Last Admin: 03/20/18 21:05 Dose: 0.1 mg Hydralazine HCl (Apresoline) 10 mg SLOW IVP Q4H PRN PRN Reason: Systolic BP > 180 Last Admin: 03/14/18 17:06 Dose: 10 mg Losartan Potassium (Cozaar) 25 mg PO DAILY [facility] Last Admin: 04/04/18 09:08 Dose: 25 mg Ondansetron HCl (Zofran Odt) 4 mg PO Q6H PRN PRN Reason: Nausea/Vomiting Last Admin: 04/03/18 09:09 Dose: 4 mg Ondansetron HCl (Zofran) 4 mg IVP Q6H PRN PRN Reason: Nausea/Vomiting Pantoprazole Sodium (Protonix) 40 mg PER TUBE DAILY [facility] Last Admin: 04/04/18 09:08 Dose: 40 mg Sodium Bicarbonate (Bicarbonate, Sodium) 650 mg PER TUBE .PER PROTOCOL PRN PRN Reason: ENTERAL TUBE OCCLUSION Sodium Chloride (Flush - Normal Saline) 10 ml IVF Q12HR [facility] Last Admin: 04/04/18 22:13 Dose: 10 ml Sodium Chloride (Flush - Normal Saline) 10 ml IVF PRN PRN PRN Reason: Saline Flush Last Admin: 03/14/18 08:28 Dose: 10 ml
[2018-04-05 04:18] LABS: BUN (Urea Nitrogen) 48 mg/dL (9.8-20.1); Calc. Creatinine Clearance 185 mL/min (70-130); Calcium 9.3 mg/dL (7.8-10.44); Estimated GFR-MDRD 67; Glucose 80 mg/dL (80-115)
[2018-04-05 04:27] LABS: Anion Gap 12 mmol/L (10-20); Carbon Dioxide 34 mmol/L (23-31); Chloride 103 mmol/L (98-107); Potassium 4.2 mmol/L (3.5-5.1); Sodium 145 mmol/L (136-145)
[2018-04-05 04:42] LABS: #Basophils 0.1 thou/uL (0.0-0.2); #Eosinphils 0.8 thou/uL (0.0-0.7); #Lymphocytes 0.9 thou/uL (1.20-3.40); #Monocytes 0.9 thou/uL (0.11-0.59); #Neutrophils 3.7 thou/uL (1.40-6.50); %Basophils 1.2 % (0.0-1.0); %Eosinophils 12.1 % (0.0-10.0); %Lymphocytes 14.7 % (21.0-51.0); %Monocytes 14.5 % (0.0-10.0); %Neutrophils 57.6 % (42.0-75.0); Hemoglobin 10.3 g/dL (12.0-16.0); Mean Corpuscular Hemoglobin 27.2 pg (27.0-31.0); Mean Corpuscular Volume 90.6 fl (81.0-99.0); Mean Platelet Volume 10.7 fL (7.4-10.4); Platelet Count 91 thou/uL (130-400); RBC Distribution Width 22.8 % (11.5-14.5); White Blood Cell (WBC) Count 6.4 thou/uL (4.8-10.8)
[2018-04-05] MEDS: Apixaban 5 MG TAB PO SCH ×2 (09:24→21:28)
[2018-04-05] MEDS: Amiodarone 200 MG TAB PO SCH (09:24)
[2018-04-05] MEDS: Pantoprazole 40 MG GRANULES PACKET PER TUBE SCH (09:24)
[2018-04-05] MEDS: Losartan 25 MG TAB PO SCH (09:24)
[2018-04-05] MEDS: buPROPion 75 MG TAB PER TUBE SCH ×2 (09:24→21:28)
--- NOTE | 2018-04-05 13:28 | PRG ---
DATE OF SERVICE: 04/05/2018 SUBJECTIVE: Ms. Sauceda did well, just 3 hours mechanical ventilation last night. OBJECTIVE: GENERAL: She is in no distress. VITAL SIGNS: Heart rate 74, respiratory 20, oximetry is 91, blood pressure 125/50. LUNGS: Clear. HEART: Regular rhythm. ABDOMEN: Soft. LABORATORY DATA: White count 6.4, hemoglobin 10.3, platelets 91,000. Sodium 145, potassium 4.2, chloride 103, bicarbonate 34, BUN 48, creatinine 0.86. IMPRESSION: 1. Respiratory failure. 2. Obesity hypoventilation. 3. Status post tracheostomy. 4. Life-threatening obesity. 5. Hypertension. Probably no reason to continue to do daily lab on her. We will try switching ventilation to p.r.n. Hopefully, she will do well with this. Placement obviou sly will be an issue.
--- NOTE | 2018-04-05 22:58 | PDOC.PN ---
- Subjective Encounter Start Date: 04/05/18 Encounter Start Time: 12:30 Patient seen and examined for Resp failure/CHF. No new complaints. No overnight events - Objective Resuscitation Status: Resuscitation Status FULL:Full Resuscitation MAR Reviewed: Yes Vital Signs & Weight: Vital Signs (12 hours) Temp Pulse Pulse Pulse Resp BP BP 04/05/18 19:00 98.3 F 04/05/18 18:47 71 24 H 04/05/18 16:00 98.3 F 04/05/18 14:55 86 81 119/75 139/61 04/05/18 12:47 75 20 04/05/18 12:00 98.4 F Pulse Ox Pulse Ox Pulse Ox 04/05/18 19:00 04/05/18 18:47 91 L 04/05/18 16:00 04/05/18 14:55 88 L 89 L 04/05/18 12:47 91 L 04/05/18 12:00 Weight Admit Weight 600 lb Weight 376 lb 1.738 oz Most Recent Monitor Data Heart Rate from ECG 76 NIBP 135/60 NIBP BP-Mean 85 Respiration from ECG 25 SpO2 90 I&O: 04/04/18 04/05/18 04/06/18 06:59 06:59 06:59 Intake Total 1540 2340 2445 Output Total 649 1080 740 Balance 891 1260 1705 Result Diagrams: 04/05/18 03:40 04/05/18 03:40 EKG Reviewed by me: Yes (Tele SR) Phys Exam - Physical Examination Constitutional: NAD Cardiovascular: RRR, no rub Gastrointestinal: soft, non-tender, positive bowel sounds Neurological: moves all 4 limbs Dx/Plan (1) Acute respiratory failure with hypoxia and hypercapnia Code(s): J96.01 - ACUTE RESPIRATORY FAILURE WITH HYPOXIA; J96.02 - ACUTE RESPIRATORY FAILURE WITH HYPERCAPNIA Status: Acute Comment: s/p trach/PEG (2) Morbid obesity with BMI of 60.0-69.9, adult Code(s): E66.01 - MORBID (SEVERE) OBESITY DUE TO EXCESS CALORIES; Z68.44 - BODY MASS INDEX (BMI) 60.0-69.9, ADULT Status: Chronic (3) Acute on chronic diastolic (congestive) heart failure Code(s): I50.33 - ACUTE ON CHRONIC DIASTOLIC (CONGESTIVE) HEART FAILURE Status : Chronic (4) Chronic a-fib Code(s): I48.2 - CHRONIC ATRIAL FIBRILLATION Status: Chronic Comment: on anticoag/Amidarone (5) Thrombocytopenia Code(s): D69.6 - THROMBOCYTOPENIA, UNSPECIFIED Status: Acute - Plan Cont current meds as below -: Cont PEG tube feeds and supportive care Review of Systems - Review of Systems Cardiovascular: negative: chest pain, palpitations, orthopnea, paroxysmal nocturnal dyspnea, edema, light headedness, other Gastrointestinal: negative: Nausea, Vomiting, Abdominal Pain, Diarrhea, Constipation, Melena, Hematochezia, Other - Medications/Allergies Allergies/Adverse Reactions: Allergies Allergy/AdvReac Type Severity Reaction Status Date / Time No Known Drug Allergies Allergy Verified 03/08/18 14:16 Medications: Current Medications Acetaminophen (Tylenol Elixir) 1,000 mg PER TUBE Q6H PRN PRN Reason: Headache/Fever or Pain Last Admin: 03/30/18 01:42 Dose: 1,000 mg Albuterol/Ipratropium (Duoneb) 3 ml NEB [id number] [facility] Last Admin: 04/05/18 18:47 Dose: 3 ml Amiodarone HCl (Cordarone) 200 mg PO DAILY [facility] Last Admin: 04/05/18 09:24 Dose: 200 mg Lipase/Protease/Amylase ([place] [id number]) 1 cap FS .PER PROTOCOL PRN PRN Reason: TUBE OCCLUSION PROTOCOL Apixaban (Eliquis) 5 mg PO BID [facility] Last Admin: 04/05/18 21:28 Dose: 5 mg Aspirin (Aspirin Chewable) 81 mg PO DAILY [facility] Last Admin: 04/01/18 08:21 Dose: 81 mg Bupropion HCl (Wellbutrin) 75 mg PER TUBE BID [facility] Last Admin: 04/05/18 21:28 Dose: 75 mg Clonidine (Catapres) 0.1 mg PO Q4H PRN PRN Reason: Systolic BP > 180 Last Admin: 03/20/18 21:05 Dose: 0.1 mg Hydralazine HCl (Apresoline) 10 mg SLOW IVP Q4H PRN PRN Reason: Systolic BP > 180 Last Admin: 03/14/18 17:06 Dose: 10 mg Losartan Potassium (Cozaar) 25 mg PO DAILY [facility] Last Admin: 04/05/18 09:24 Dose: 25 mg Ondansetron HCl (Zofran Odt) 4 mg PO Q6H PRN PRN Reason: Nausea/Vomiting Last Admin: 04/03/18 09:09 Dose: 4 mg Ondansetron HCl (Zofran) 4 mg IVP Q6H PRN PRN Reason: Nausea/Vomiting Pantoprazole Sodium (Protonix) 40 mg PER TUBE DAILY [facility] Last Admin: 04/05/18 09:24 Dose: 40 mg Sodium Bicarbonate (Bicarbonate, Sodium) 650 mg PER TUBE .PER PROTOCOL PRN PRN Reason: ENTERAL TUBE OCCLUSION Sodium Chloride (Flush - Normal Saline) 10 ml IVF Q12HR [facility] Last Admin: 04/05/18 21:29 Dose: 10 ml Sodium Chloride (Flush - Normal Saline) 10 ml IVF PRN PRN PRN Reason: Saline Flush Last Admin: 03/14/18 08:28 Dose: 10 ml
[2018-04-06] MEDS: Pantoprazole 40 MG GRANULES PACKET PER TUBE SCH (09:24)
[2018-04-06] MEDS: Losartan 25 MG TAB PO SCH (09:24)
[2018-04-06] MEDS: Amiodarone 200 MG TAB PO SCH (09:24)
[2018-04-06] MEDS: Apixaban 5 MG TAB PO SCH ×2 (09:24→20:57)
[2018-04-06] MEDS: buPROPion 75 MG TAB PER TUBE SCH ×2 (09:24→20:57)
--- NOTE | 2018-04-06 09:26 | PRG ---
DATE OF SERVICE: 04/06/2018 SERVICE: Pulmonary Medicine INTERVAL HISTORY: The patient is doing really well from a respiratory standpoint. She denies any cu rrent chest pain, nausea, vomiting, fevers or chills. There has been no interval change to her condi tion. No overnight events occurred. PHYSICAL EXAMINATION: VITAL SIGNS: Afebrile, pulse 90, blood pressure 133/57, respirations 24, saturation 87% on a T-colla r with a 35% FiO2. HEENT: Normocephalic, atraumatic. Sclerae are white, conjunctivae pink. Oral mucosa is moist witho ut lesions. NECK: Tracheostomy in good position. It is clean, dry, and intact. LUNGS: Decent air entry. There is no prolonged expiratory phase appreciated. HEART: Normal rate, regular. ABDOMEN: Soft, nontender, nondistended. Bowel sounds are positive. MUSCULOSKELETAL: No cyanosis or clubbing. There is no pitting in the bilateral lower extremities. NEUROLOGIC: Grossly nonfocal. ASSESSMENT: 1. Chronic hypoxic and hypercapnic respiratory failure. 2. Obesity hypoventilation syndrome. 3. Morbid obesity. PLAN: We will continue working on mobilizing the patient. She currently has no place to go because she is unfunded, and will remain with us until she is safe to transition out of the hospital. We kayode l switch her vitals to q.6h.
[2018-04-06] MEDS ORDERED: Pantoprazole 40 MG VIAL IVP SCH (09:30)
[2018-04-06] MEDS ORDERED: Furosemide 40 MG/4 ML VIAL SLOW IVP SCH (13:30)
[2018-04-06 16:52] LABS: Potassium 3.6 mmol/L (3.5-5.1)
[2018-04-06 20:08] LABS: pH, Arterial 7.43 (7.35-7.45)
[2018-04-06 20:09] LABS: Actual Bicarbonate (HCO3a) 37.3 mEq/L (22-28); Base Excess (BEa) 11.4 mEq/L (-2.0 to +3.0); Hematocrit-ABG 34.7 % (36.0-47.0); Hemoglobin (Hb) 10.2 g/dL (12.0-16.0); O2 Tension (PaO2) 50.1 mmHg (> 80.0)
[2018-04-06 20:10] LABS: Calcium, Ionized 1.3 mmol/L (1.12-1.30); Puncture Site RRA
--- NOTE | 2018-04-06 23:46 | PDOC.PN ---
- Subjective Encounter Start Date: 04/06/18 Encounter Start Time: 13:00 Patient seen and examined for resp failure. Somnolent with mild resp distress. On Vent. No overnight events - Objective Resuscitation Status: Resuscitation Status FULL:Full Resuscitation MAR Reviewed: Yes Vital Signs & Weight: Vital Signs (12 hours) Temp Pulse Pulse Pulse Resp BP BP 04/06/18 22:00 25 H 04/06/18 20:15 125 H 92/49 L 04/06/18 20:00 98.9 F 122 H 23 H 04/06/18 18:00 27 H 04/06/18 16:27 78 133 H 150/72 H 04/06/18 16:00 99 F 24 H 04/06/18 15:53 122 H 04/06/18 14:00 27 H 04/06/18 13:05 76 04/06/18 12:00 99.6 F 24 H Pulse Ox Pulse Ox Pulse Ox 04/06/18 22:00 04/06/18 20:15 04/06/18 20:00 88 L 04/06/18 18:00 04/06/18 16:27 89 L 86 L 04/06/18 16:00 04/06/18 15:53 04/06/18 14:00 04/06/18 13:05 04/06/18 12:00 Weight Admit Weight 600 lb Weight 376 lb 1.738 oz Most Recent Monitor Data Heart Rate from ECG 84 NIBP 104/43 NIBP BP-Mean 55 Respiration from ECG 23 SpO2 91 I&O: 04/05/18 04/06/18 04/07/18 06:59 06:59 06:59 Intake Total 2340 3155 2370 Output Total 1080 1330 1585 Balance 1260 1825 785 Result Diagrams: 04/05/18 03:40 04/07/18 05:23 EKG Reviewed by me: Yes (Tele SR) Phys Exam - Physical Examination Constitutional: NAD (on Vent) Respiratory: no wheezing Dec AE at bases Cardiovascular: RRR, no rub Gastrointestinal: soft, non-tender, positive bowel sounds Dx/Plan (1) Acute respiratory failure with hypoxia and hypercapnia Code(s): J96.01 - ACUTE RESPIRATORY FAILURE WITH HYPOXIA; J96.02 - ACUTE RESPIRATORY FAILURE WITH HYPERCAPNIA Status: Acute Comment: s/p trach/PEG (2) Morbid obesity with BMI of 60.0-69.9, adult Code(s): E66.01 - MORBID (SEVERE) OBESITY DUE TO EXCESS CALORIES; Z68.44 - BODY MASS INDEX (BMI) 60.0-69.9, ADULT Status: Chronic (3) Acute on chronic diastolic (congestive) heart failure Code(s): I50.33 - ACUTE ON CHRONIC DIASTOLIC (CONGESTIVE) HEART FAILURE Status : Chronic (4) Chronic a-fib Code(s): I48.2 - CHRONIC ATRIAL FIBRILLATION Status: Chronic Comment: on anticoag/Amidarone (5) Thrombocytopenia Code(s): D69.6 - THROMBOCYTOPENIA, UNSPECIFIED Status: Acute - Plan One dose of 40 mg IV Lasix -: BM in AM -: Cont to monitor -: Cont current meds as below -: On Anticoag for Afib Review of Systems - Review of Systems Constitutional: negative: fever, chills, sweats, weakness, malaise, other Gastrointestinal: negative: Nausea, Vomiting, Abdominal Pain, Diarrhea, Constipation, Melena, Hematochezia, Other - Medications/Allergies Allergies/Adverse Reactions: Allergies Allergy/AdvReac Type Severity Reaction Status Date / Time No Known Drug Allergies Allergy Verified 03/08/18 14:16 Medications: Current Medications Acetaminophen (Tylenol Elixir) 1,000 mg PER TUBE Q6H PRN PRN Reason: Headache/Fever or Pain Last Admin: 03/30/18 01:42 Dose: 1,000 mg Albuterol/Ipratropium (Duoneb) 3 ml NEB [id number] [facility] Last Admin: 04/06/18 20:14 Dose: 3 ml Amiodarone HCl (Cordarone) 200 mg PO DAILY [facility] Last Admin: 04/06/18 09:24 Dose: 200 mg Lipase/Protease/Amylase ([place] [id number]) 1 cap FS .PER PROTOCOL PRN PRN Reason: TUBE OCCLUSION PROTOCOL Apixaban (Eliquis) 5 mg PO BID [facility] Last Admin: 04/06/18 20:57 Dose: 5 mg Aspirin (Aspirin Chewable) 81 mg PO DAILY [facility] Last Admin: 04/06/18 09:24 Dose: 81 mg Bupropion HCl (Wellbutrin) 75 mg PER TUBE BID [facility] Last Admin: 04/06/18 20:57 Dose: 75 mg Clonidine (Catapres) 0.1 mg PO Q4H PRN PRN Reason: Systolic BP > 180 Last Admin: 03/20/18 21:05 Dose: 0.1 mg Hydralazine HCl (Apresoline) 10 mg SLOW IVP Q4H PRN PRN Reason: Systolic BP > 180 Last Admin: 03/14/18 17:06 Dose: 10 mg Losartan Potassium (Cozaar) 25 mg PO DAILY [facility] Last Admin: 04/06/18 09:24 Dose: 25 mg Ondansetron HCl (Zofran Odt) 4 mg PO Q6H PRN PRN Reason: Nausea/Vomiting Last Admin: 04/03/18 09:09 Dose: 4 mg Ondansetron HCl (Zofran) 4 mg IVP Q6H PRN PRN Reason: Nausea/Vomiting Pantoprazole Sodium (Protonix) 40 mg IVP DAILY [facility] Sodium Bicarbonate (Bicarbonate, Sodium) 650 mg PER TUBE .PER PROTOCOL PRN PRN Reason: ENTERAL TUBE OCCLUSION Sodium Chloride (Flush - Normal Saline) 10 ml IVF Q12HR [facility] Last Admin: 04/06/18 13:26 Dose: 10 ml Sodium Chloride (Flush - Normal Saline) 10 ml IVF PRN PRN PRN Reason: Saline Flush Last Admin: 03/14/18 08:28 Dose: 10 ml
[2018-04-07 05:42] LABS: Albumin 2.6 g/dL (3.4-4.8); BUN (Urea Nitrogen) 44 mg/dL (9.8-20.1); Calc. Creatinine Clearance 199 mL/min (70-130); Estimated GFR-MDRD 73; Glucose 100 mg/dL (80-115); Magnesium 1.8 mg/dL (1.6-2.6); Phosphorus 2.3 mg/dL (2.3-4.7)
[2018-04-07 05:51] LABS: Anion Gap 9 mmol/L (10-20); Carbon Dioxide 38 mmol/L (23-31); Chloride 105 mmol/L (98-107); Sodium 148 mmol/L (136-145)
--- NOTE | 2018-04-07 09:39 | PRG ---
DATE OF SERVICE: 04/07/2018 SERVICE: Pulmonary Medicine. INTERVAL HISTORY: The patient went in and out of atrial fibrillation briefly. She converted spontan eously. Her oxygen requirements are going up a little bit. She is tolerating less time on T-collar. She denies any current fevers, chills, nausea or vomiting, but she did have a low-grade temperature overnight. She has increasing swelling in the right upper extremity. PHYSICAL EXAMINATION: VITAL SIGNS: Temperature max 100.6, pulse 81, blood pressure 121/44, respirations 21, saturation 94% on 30% FiO2 and a PEEP of 5. GENERAL: The patient is awake and alert, in no apparent distress. LUNGS: Excellent air entry with no prolonged expiratory phase. Rhonchi and crackles are both presen t. No wheezing. HEART: Normal rate and regular. ABDOMEN: Soft, nontender, and nondistended. Bowel sounds positive. MUSCULOSKELETAL: No cyanosis or clubbing. There is trace pitting in the bilateral lower extremities . There is 1+ pitting in the left upper extremity and 3+ pitting in the right upper extremity. GENITOURINARY: No Tolbert. NEUROLOGIC: Grossly nonfocal. LABORATORY DATA: WBC 6.4, hemoglobin 10.3, platelets 91,000 and up trending once again. Creatinine 0.8. Magnesium and phosphorus unremarkable. Albumin 2.6. Basic metabolic profile is otherwise unre markable. Sodium is up trending to 148. ASSESSMENT: 1. Chronic hypoxic and hypercapnic respiratory failure. 2. Obesity hypoventilation syndrome. 3. Morbid obesity. 4. Sepsis. 5. Hypernatremia. 6. Major depressive disorder. 7. Right upper extremity swelling. DISCUSSION AND PLAN: We will get an ultrasound of the right upper extremity. I will nguyen culture inc luding blood, urine, and tracheal aspirate. We will push the dose of SSRI. I will add a little bit of free water to correct for the patient's hypernatremia. We will continue to diurese her to euvolem ia.
[2018-04-07] MEDS: buPROPion 75 MG TAB PER TUBE SCH ×3 (09:49→20:22)
[2018-04-07] MEDS: Apixaban 5 MG TAB PO SCH ×2 (09:49→20:22)
[2018-04-07] MEDS: Amiodarone 200 MG TAB PO SCH (09:49)
[2018-04-07] MEDS: Pantoprazole 40 MG VIAL IVP SCH (09:49)
[2018-04-07] MEDS: Losartan 25 MG TAB PO SCH (09:49)
[2018-04-07] MEDS: Dextrose 5% in Water 1,000 ML IV SCH (11:29)
--- NOTE | 2018-04-07 12:18 | ULT ---
RIGHT UPPER EXTREMITY VENOUS DOPPLER ULTRASOUND: 04/07/2018 HISTORY: Right upper extremity edema, swelling, assess for DVT. COMPARISON: None. TECHNIQUE: Multiplanar edwards-scale sonographic imaging of the venous structures of the right upper extremity are obtained with color-flow and spectral analysis. FINDINGS: The right internal jugular vein, subclavian vein, and axillary vein are patent. The right brachial vein, cephalic vein, radial vein, and ulnar vein are patent as visualized. The ba silic vein is patent as well. The acquisitions assistant reports that the patient has an midline port at the mid upper arm level, obscuring the mid portion of the brachial vein. IMPRESSION: Imaged portions of the venous structures of the left upper extremity demonstrate no evidence for deep venous thrombosis. A portion of the right brachial vein could be visualized secondary to obscuratio n from midline port. POS: MICHELE
--- NOTE | 2018-04-07 23:20 | PDOC.PN ---
- Subjective Encounter Start Date: 04/07/18 Encounter Start Time: 12:30 Patient seen and examined for Resp failure. Lethargic. Events noted - Objective Resuscitation Status: Resuscitation Status FULL:Full Resuscitation MAR Reviewed: Yes Vital Signs & Weight: Vital Signs (12 hours) Temp Pulse Resp Pulse Ox 04/07/18 20:00 98.6 F 04/07/18 18:44 69 22 H 92 L 04/07/18 16:00 98.1 F 04/07/18 14:43 72 25 H 91 L 04/07/18 12:00 99.2 F 90 L Weight Admit Weight 600 lb Weight 376 lb 1.738 oz Most Recent Monitor Data Heart Rate from ECG 68 NIBP 98/46 NIBP BP-Mean 64 Respiration from ECG 25 SpO2 92 I&O: 04/06/18 04/07/18 04/08/18 06:59 06:59 06:59 Intake Total 3155 2740 1352 Output Total 1330 2040 597 Balance 1825 700 755 Result Diagrams: 04/05/18 03:40 04/07/18 05:23 EKG Reviewed by me: Yes (Tele SR) Phys Exam - Physical Examination Constitutional: NAD Respiratory: no wheezing, no rhonchi Cardiovascular: RRR, no rub Gastrointestinal: soft, positive bowel sounds Musculoskeletal: edema present Dx/Plan (1) Acute respiratory failure with hypoxia and hypercapnia Code(s): J96.01 - ACUTE RESPIRATORY FAILURE WITH HYPOXIA; J96.02 - ACUTE RESPIRATORY FAILURE WITH HYPERCAPNIA Status: Acute Comment: s/p trach/PEG (2) Morbid obesity with BMI of 60.0-69.9, adult Code(s): E66.01 - MORBID (SEVERE) OBESITY DUE TO EXCESS CALORIES; Z68.44 - BODY MASS INDEX (BMI) 60.0-69.9, ADULT Status: Chronic (3) Acute on chronic diastolic (congestive) heart failure Code(s): I50.33 - ACUTE ON CHRONIC DIASTOLIC (CONGESTIVE) HEART FAILURE Status : Chronic (4) Chronic a-fib Code(s): I48.2 - CHRONIC ATRIAL FIBRILLATION Status: Chronic Comment: on anticoag/Amidarone. Now paroxysmal (5) Thrombocytopenia Code(s): D69.6 - THROMBOCYTOPENIA, UNSPECIFIED Status: Acute - Plan koch catheter, PT/OT, respiratory therapy AM labs -: Repeat cultures done -: Cont current meds as below -: No family at bedside -: Cont supportive care Review of Systems - Review of Systems Respiratory: negative: Cough, Dry, Shortness of Breath, Hemoptysis, SOB with Excertion, Pleuritic Pain, Sputum, Wheezing Cardiovascular: negative: chest pain, palpitations, orthopnea, paroxysmal nocturnal dyspnea, edema, light headedness, other - Medications/Allergies Allergies/Adverse Reactions: Allergies Allergy/AdvReac Type Severity Reaction Status Date / Time No Known Drug Allergies Allergy Verified 03/08/18 14:16 Medications: Current Medications Acetaminophen (Tylenol Elixir) 1,000 mg PER TUBE Q6H PRN PRN Reason: Headache/Fever or Pain Last Admin: 03/30/18 01:42 Dose: 1,000 mg Albuterol/Ipratropium (Duoneb) 3 ml NEB [id number] [facility] Last Admin: 04/07/18 18:44 Dose: 3 ml Amiodarone HCl (Cordarone) 200 mg PO DAILY [facility] Last Admin: 04/07/18 09:49 Dose: 200 mg Lipase/Protease/Amylase ([place] [id number]) 1 cap FS .PER PROTOCOL PRN PRN Reason: TUBE OCCLUSION PROTOCOL Apixaban (Eliquis) 5 mg PO BID [facility] Last Admin: 04/07/18 20:22 Dose: 5 mg Aspirin (Aspirin Chewable) 81 mg PO DAILY [facility] Last Admin: 04/07/18 09:49 Dose: 81 mg Bupropion HCl (Wellbutrin) 150 mg PER TUBE BID [facility] Last Admin: 04/07/18 20:22 Dose: 150 mg Clonidine (Catapres) 0.1 mg PO Q4H PRN PRN Reason: Systolic BP > 180 Last Admin: 03/20/18 21:05 Dose: 0.1 mg Furosemide (Lasix) 40 mg SLOW IVP 0600 [facility] Hydralazine HCl (Apresoline) 10 mg SLOW IVP Q4H PRN PRN Reason: Systolic BP > 180 Last Admin: 03/14/18 17:06 Dose: 10 mg Dextrose/Water (D5w) 1,000 mls @ 50 mls/hr IV .Q20H [facility] Last Admin: 04/07/18 11:29 Dose: 1,000 mls Losartan Potassium (Cozaar) 25 mg PO DAILY [facility] Last Admin: 04/07/18 09:49 Dose: 25 mg Ondansetron HCl (Zofran Odt) 4 mg PO Q6H PRN PRN Reason: Nausea/Vomiting Last Admin: 04/03/18 09:09 Dose: 4 mg Ondansetron HCl (Zofran) 4 mg IVP Q6H PRN PRN Reason: Nausea/Vomiting Pantoprazole Sodium (Protonix) 40 mg IVP DAILY [facility] Last Admin: 04/07/18 09:49 Dose: 40 mg Sodium Bicarbonate (Bicarbonate, Sodium) 650 mg PER TUBE .PER PROTOCOL PRN PRN Reason: ENTERAL TUBE OCCLUSION Sodium Chloride (Flush - Normal Saline) 10 ml IVF Q12HR [facility] Last Admin: 04/07/18 20:23 Dose: 10 ml Sodium Chloride (Flush - Normal Saline) 10 ml IVF PRN PRN PRN Reason: Saline Flush Last Admin: 03/14/18 08:28 Dose: 10 ml
[2018-04-08] MEDS: Furosemide 40 MG/4 ML VIAL SLOW IVP SCH (05:18)
[2018-04-08] MEDS: Dextrose 5% in Water 1,000 ML IV SCH (05:19)
[2018-04-08 08:52] LABS: Hemoglobin 10.2 g/dL (12.0-16.0); Mean Corpuscular HGB CONC 29.3 g/dL (32.0-36.0); Mean Corpuscular Hemoglobin 26.6 pg (27.0-31.0); Mean Corpuscular Volume 90.8 fl (81.0-99.0); Mean Platelet Volume 11.6 fL (7.4-10.4); Platelet Count 106 thou/uL (130-400); RBC Distribution Width 23.9 % (11.5-14.5); Red Blood Cell (RBC) Count 3.83 mill/uL (4.20-5.40); White Blood Cell (WBC) Count 6.8 thou/uL (4.8-10.8)
--- NOTE | 2018-04-08 09:11 | HP ---
DATE OF SERVICE: 04/08/2018 SERVICE: Pulmonary Medicine. INTERVAL HISTORY: The patient is doing fine from a cardiovascular and respiratory standpoint. Overn ight, she was not placed on pressure support ventilation. She denies any chest pain, nausea, vomitin g, fevers or chills. Otherwise, there has been no interval change to her condition. PHYSICAL EXAMINATION: VITAL SIGNS: Afebrile with a T-max of 100.6 yesterday morning, pulse 68, blood pressure 121/45, resp irations 23, saturation 92% on room air. GENERAL: The patient is awake, alert, no apparent distress. LUNGS: Decent air entry with no prolonged expiratory phase. Rhonchi are present, but clear with cou gh. No wheezing or crackles are appreciated. HEART: Normal rate and regular. ABDOMEN: Soft, nontender, nondistended. Bowel sounds are positive. MUSCULOSKELETAL: No cyanosis or clubbing. There is 1+ pitting in the bilateral lower extremities. NEUROLOGIC: Grossly nonfocal. LABORATORY DATA: Blood cultures x2 are negative to date. Respiratory cultures are negative to date. Urine culture is growing gram-positive cocci. IMAGING DATA: Ultrasound of the right upper extremity demonstrates no evidence of DVT. ASSESSMENT: 1. Chronic hypoxic and hypercapnic respiratory failure. 2. Obesity hypoventilation syndrome. 3. Morbid obesity. 4. Sepsis. 5. Urinary tract infection secondary to Streptococcus. 6. Hypernatremia. 7. Major depressive disorder. 8. Right upper extremity swelling without evidence of deep venous thrombosis. DISCUSSION AND PLAN: I will put the patient on Rocephin. This will be a 10-day course for complicat ed urinary tract infection. We will continue to diurese the patient to euvolemia. Repeat laboratori es will be obtained tomorrow morning. We will look for increasing signs of sepsis through time.
[2018-04-08 09:17] LABS: Anion Gap 10 mmol/L (10-20); BUN (Urea Nitrogen) 43 mg/dL (9.8-20.1); Calc. Creatinine Clearance 194 mL/min (70-130); Calcium 8.9 mg/dL (7.8-10.44); Carbon Dioxide 37 mmol/L (23-31); Chloride 103 mmol/L (98-107); Estimated GFR-MDRD 71; Glucose 110 mg/dL (80-115); Potassium 3.8 mmol/L (3.5-5.1); Sodium 146 mmol/L (136-145)
[2018-04-08 09:38] LABS: Band 6 % (5-11); Eosinophils 18 % (0-10); Lymphocytes 20 % (21-51); MDiff Complete? YES; Monocytes 11 % (0-10); Myelocyte 2 % (0-0); Neutrophil 40 % (42-75); PLT Morphology Comment Appears Decreased; Polychromasia SLIGHT = 2-3 cells (100X) (0-2/hpf)
[2018-04-08] MEDS: cefTRIAXone\\ROCEPHIN 2 GM in Sodium Chloride 0.9% 100 ML IVPB SCH (09:56)
[2018-04-08] MEDS: buPROPion 75 MG TAB PER TUBE SCH ×2 (09:56→21:10)
[2018-04-08] MEDS: Apixaban 5 MG TAB PO SCH ×2 (09:56→21:10)
[2018-04-08] MEDS: Pantoprazole 40 MG VIAL IVP SCH (09:56)
[2018-04-08] MEDS: Losartan 25 MG TAB PO SCH (09:56)
[2018-04-08] MEDS: Amiodarone 200 MG TAB PO SCH (09:56)
--- NOTE | 2018-04-08 17:23 | PDOC.PN ---
- Subjective Encounter Start Date: 04/08/18 Encounter Start Time: 14:00 Patient seen and examined Resp failure. No new complaints. No overnight events - Objective Resuscitation Status: Resuscitation Status FULL:Full Resuscitation MAR Reviewed: Yes Vital Signs & Weight: Vital Signs (12 hours) Temp Pulse Pulse Pulse Resp BP BP 04/08/18 16:00 98.1 F 04/08/18 13:06 72 23 H 04/08/18 12:00 98.2 F 04/08/18 11:38 72 74 116/50 L 04/08/18 08:24 68 121/45 L 04/08/18 08:00 98.3 F 72 23 H 04/08/18 07:00 98.3 F BP Pulse Ox 04/08/18 16:00 04/08/18 13:06 88 L 04/08/18 12:00 04/08/18 11:38 122/59 L 04/08/18 08:24 04/08/18 08:00 94 L 04/08/18 07:00 Weight Admit Weight 600 lb Weight 376 lb 1.738 oz Most Recent Monitor Data Heart Rate from ECG 66 NIBP 119/55 NIBP BP-Mean 70 Respiration from ECG 23 SpO2 90 I&O: 04/07/18 04/08/18 04/09/18 06:59 06:59 06:59 Intake Total 2740 2152 911 Output Total 2040 1252 885 Balance 700 900 26 Result Diagrams: 04/08/18 08:27 04/08/18 08:27 EKG Reviewed by me: Yes (Tele SR) Phys Exam - Physical Examination Constitutional: NAD Respiratory: no wheezing, no rhonchi Cardiovascular: RRR, no rub Gastrointestinal: soft, non-tender, positive bowel sounds Musculoskeletal: edema present Dx/Plan (1) Acute respiratory failure with hypoxia and hypercapnia Code(s): J96.01 - ACUTE RESPIRATORY FAILURE WITH HYPOXIA; J96.02 - ACUTE RESPIRATORY FAILURE WITH HYPERCAPNIA Status: Acute Comment: s/p trach/PEG (2) UTI (urinary tract infection) Status: Acute (3) Morbid obesity with BMI of 60.0-69.9, adult Code(s): E66.01 - MORBID (SEVERE) OBESITY DUE TO EXCESS CALORIES; Z68.44 - BODY MASS INDEX (BMI) 60.0-69.9, ADULT Status: Chronic (4) Acute on chronic diastolic (congestive) heart failure Code(s): I50.33 - ACUTE ON CHRONIC DIASTOLIC (CONGESTIVE) HEART FAILURE Status : Chronic (5) Chronic a-fib Code(s): I48.2 - CHRONIC ATRIAL FIBRILLATION Status: Chronic Comment: on anticoag/Amidarone. 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 On Ceftriaxone for UTI -: Cont current meds as below -: Cont supportive care -: DC planning Review of Systems - Review of Systems Respiratory: negative: Cough, Dry, Shortness of Breath, Hemoptysis, SOB with Excertion, Pleuritic Pain, Sputum, Wheezing Cardiovascular: negative: chest pain, palpitations, orthopnea, paroxysmal nocturnal dyspnea, edema, light headedness, other - Medications/Allergies Allergies/Adverse Reactions: Allergies Allergy/AdvReac Type Severity Reaction Status Date / Time No Known Drug Allergies Allergy Verified 03/08/18 14:16 Medications: Current Medications Acetaminophen (Tylenol Elixir) 1,000 mg PER TUBE Q6H PRN PRN Reason: Headache/Fever or Pain Last Admin: 03/30/18 01:42 Dose: 1,000 mg Albuterol/Ipratropium (Duoneb) 3 ml NEB [id number] [facility] Last Admin: 04/08/18 13:06 Dose: 3 ml Amiodarone HCl (Cordarone) 200 mg PO DAILY [facility] Last Admin: 04/08/18 09:56 Dose: 200 mg Lipase/Protease/Amylase ([place] [id number]) 1 cap FS .PER PROTOCOL PRN PRN Reason: TUBE OCCLUSION PROTOCOL Apixaban (Eliquis) 5 mg PO BID [facility] Last Admin: 04/08/18 09:56 Dose: 5 mg Aspirin (Aspirin Chewable) 81 mg PO DAILY [facility] Last Admin: 04/08/18 09:56 Dose: 81 mg Bupropion HCl (Wellbutrin) 150 mg PER TUBE BID [facility] Last Admin: 04/08/18 09:56 Dose: 150 mg Clonidine (Catapres) 0.1 mg PO Q4H PRN PRN Reason: Systolic BP > 180 Last Admin: 03/20/18 21:05 Dose: 0.1 mg Furosemide (Lasix) 40 mg SLOW IVP 0600 [facility] Last Admin: 04/08/18 05:18 Dose: 40 mg Hydralazine HCl (Apresoline) 10 mg SLOW IVP Q4H PRN PRN Reason: Systolic BP > 180 Last Admin: 03/14/18 17:06 Dose: 10 mg Dextrose/Water (D5w) 1,000 mls @ 50 mls/hr IV .Q20H [facility] Last Admin: 04/08/18 05:19 Dose: 1,000 mls Ceftriaxone Sodium 2 gm/ (Sodium Chloride) 100 mls @ 200 mls/hr IVPB Q24HR [facility] Last Admin: 04/08/18 09:56 Dose: 100 mls Losartan Potassium (Cozaar) 25 mg PO DAILY [facility] Last Admin: 04/08/18 09:56 Dose: 25 mg Ondansetron HCl (Zofran Odt) 4 mg PO Q6H PRN PRN Reason: Nausea/Vomiting Last Admin: 04/03/18 09:09 Dose: 4 mg Ondansetron HCl (Zofran) 4 mg IVP Q6H PRN PRN Reason: Nausea/Vomiting Pantoprazole Sodium (Protonix) 40 mg IVP DAILY [facility] Last Admin: 04/08/18 09:56 Dose: 40 mg Sodium Bicarbonate (Bicarbonate, Sodium) 650 mg PER TUBE .PER PROTOCOL PRN PRN Reason: ENTERAL TUBE OCCLUSION Sodium Chloride (Flush - Normal Saline) 10 ml IVF Q12HR [facility] Last Admin: 04/08/18 09:57 Dose: 10 ml Sodium Chloride (Flush - Normal Saline) 10 ml IVF PRN PRN PRN Reason: Saline Flush Last Admin: 03/14/18 08:28 Dose: 10 ml
[2018-04-09 04:56] LABS: BUN (Urea Nitrogen) 44 mg/dL (9.8-20.1); Calc. Creatinine Clearance 196 mL/min (70-130); Estimated GFR-MDRD 72; Glucose 95 mg/dL (80-115); Magnesium 1.8 mg/dL (1.6-2.6)
[2018-04-09 05:06] LABS: Anion Gap 11 mmol/L (10-20); Carbon Dioxide 38 mmol/L (23-31); Chloride 101 mmol/L (98-107); Potassium 3.8 mmol/L (3.5-5.1); Sodium 146 mmol/L (136-145)
[2018-04-09 05:33] LABS: Anisocytosis SLIGHT = 6-15 cells (100X) (0-5/hpf); Band 9 % (5-11); Elliptocytes SLIGHT = 2-5 cells (100X) (0-1/hpf); Eosinophils 19 % (0-10); Hemoglobin 10.2 g/dL (12.0-16.0); Lymphocytes 16 % (21-51); MDiff Complete? YES; Mean Corpuscular HGB CONC 28.9 g/dL (32.0-36.0); Mean Corpuscular Hemoglobin 26.2 pg (27.0-31.0); Mean Corpuscular Volume 90.8 fl (81.0-99.0); Mean Platelet Volume 9.8 fL (7.4-10.4); Monocytes 13 % (0-10); Neutrophil 43 % (42-75); PLT Morphology Comment Appears Decreased; Platelet Count 97 thou/uL (130-400); RBC Distribution Width 23.6 % (11.5-14.5); Red Blood Cell (RBC) Count 3.87 mill/uL (4.20-5.40); White Blood Cell (WBC) Count 6.2 thou/uL (4.8-10.8)
[2018-04-09] MEDS: Dextrose 5% in Water 1,000 ML IV SCH (05:34)
[2018-04-09] MEDS: Furosemide 40 MG/4 ML VIAL SLOW IVP SCH (05:34)
[2018-04-09] MEDS: Amiodarone 200 MG TAB PO SCH (09:05)
[2018-04-09] MEDS: buPROPion 75 MG TAB PER TUBE SCH ×2 (09:05→20:48)
[2018-04-09] MEDS: Apixaban 5 MG TAB PO SCH ×2 (09:05→20:48)
[2018-04-09] MEDS: Pantoprazole 40 MG VIAL IVP SCH (09:06)
[2018-04-09] MEDS: Losartan 25 MG TAB PO SCH (09:06)
[2018-04-09] MEDS: cefTRIAXone\\ROCEPHIN 2 GM in Sodium Chloride 0.9% 100 ML IVPB SCH ×3 (09:14→22:25)
--- NOTE | 2018-04-09 10:02 | PRG ---
DATE OF SERVICE: 04/09/2018 SERVICE: Pulmonary Medicine. INTERVAL HISTORY: The patient is doing fine from a respiratory standpoint. She actually looks like she has better color today. She denies any chest pain, shortness of breath, fevers or chills. PHYSICAL EXAMINATION: VITAL SIGNS: Afebrile, pulse 68, blood pressure 135/60, respirations 19, saturation 98% on 28% FiO2 delivered via trach collar. HEENT: Normocephalic, atraumatic. Sclerae are white, conjunctivae pink. Oral and nasal mucosa is m oist without lesions. LUNGS: Decent air entry. There is no prolonged expiratory phase, wheezing, rhonchi or crackles. HEART: Normal rate, regular. ABDOMEN: Soft, nontender, nondistended. Bowel sounds are positive. MUSCULOSKELETAL: No cyanosis or clubbing. There is no pitting in the bilateral lower extremities. NEUROLOGIC: Grossly nonfocal. LABORATORY DATA: WBC 6.2, hemoglobin 10.2, platelets 97,000. Sodium 146, bicarbonate 38. Basic met abolic profile is otherwise unremarkable. Urine culture is growing nonhemolytic Streptococcus. Sens itivities currently pending. Respiratory cultures and repeat blood cultures are negative to date. ASSESSMENT: 1. Chronic hypoxic and hypercapnic respiratory failure. 2. Obesity hypoventilation syndrome. 3. Morbid obesity. 4. Deconditioning. 5. Sepsis. 6. Urinary tract infection secondary to Streptococcus. 7. Hypernatremia. 8. Major depressive disorder. PLAN: We will continue Rocephin for a total duration of 10 days. We will continue working on mobili zing the patient. She remains a little volume overloaded. We will introduce a touch of free water b ecause of her hypernatremia while we continue to make efforts at diuresing her. Magnesium and potass ium will be replaced once again. Pulmonary and Critical Care continue to follow. Ultimately, she is stable for transition out of the hospital, but currently she has no safe environment to go to.
[2018-04-09] MEDS ORDERED: Magnesium 2 GM/NS 0.9% 100 ML 2 GM in Premix Bag 1 BAG IVPB SCH (10:15)
[2018-04-09] MEDS: Acetaminophen 650 MG/20.3 ML UDCUP PER TUBE PRN (20:58)
--- NOTE | 2018-04-09 22:29 | PDOC.PN ---
- Subjective Encounter Start Date: 04/09/18 Encounter Start Time: 12:30 Subjective: pt up in bed trached, follows command - Objective Resuscitation Status: Resuscitation Status FULL:Full Resuscitation Vital Signs & Weight: Vital Signs (12 hours) Temp Pulse Pulse Pulse Resp BP BP 04/09/18 20:00 98.2 F 73 20 04/09/18 19:05 04/09/18 19:03 04/09/18 16:00 97.7 F 04/09/18 13:48 72 23 H 04/09/18 13:15 73 73 122/83 126/60 04/09/18 12:00 98.7 F 04/09/18 11:00 98.7 F Pulse Ox Pulse Ox Pulse Ox 04/09/18 20:00 92 L 04/09/18 19:05 88 L 04/09/18 19:03 88 L 04/09/18 16:00 04/09/18 13:48 04/09/18 13:15 96 95 04/09/18 12:00 04/09/18 11:00 Weight Admit Weight 600 lb Weight 376 lb 1.738 oz Most Recent Monitor Data Heart Rate from ECG 71 NIBP 103/47 NIBP BP-Mean 61 Respiration from ECG 19 SpO2 89 I&O: 04/08/18 04/09/18 04/10/18 06:59 06:59 06:59 Intake Total 2152 2169 1673 Output Total 1252 1480 1435 Balance 900 689 238 Result Diagrams: 04/09/18 04:26 04/09/18 04:26 Phys Exam - Physical Examination HEENT: PERRLA, moist MMs, sclera anicteric, TM's clear, oral pharynx no lesions , 2+ tonsils Neck: no nodes, no JVD, supple, full ROM mild rhonchi noted to lower lungs, pt is trached Cardiovascular: RRR, no significant murmur, no rub, gallop, irregular Gastrointestinal: soft, non-tender, no distention, positive bowel sounds Musculoskeletal: edema present lower ext Neurological: non-focal, normal sensation, moves all 4 limbs Dx/Plan (1) Acute respiratory failure with hypoxia and hypercapnia Code(s): J96.01 - ACUTE RESPIRATORY FAILURE WITH HYPOXIA; J96.02 - ACUTE RESPIRATORY FAILURE WITH HYPERCAPNIA Status: Acute Comment: s/p trach/PEG (2) UTI (urinary tract infection) Status: Acute (3) Acute on chronic diastolic (congestive) heart failure Code(s): I50.33 - ACUTE ON CHRONIC DIASTOLIC (CONGESTIVE) HEART FAILURE Status : Chronic (4) Hypokalemia Code(s): E87.6 - HYPOKALEMIA Status: Acute Comment: continue electrolyte replacement protocol (5) Chronic a-fib Code(s): I48.2 - CHRONIC ATRIAL FIBRILLATION Status: Chronic Comment: on anticoag/Amidarone. 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 Review of Systems - Review of Systems Respiratory: negative: Cough, Dry, Shortness of Breath, Hemoptysis, SOB with Excertion, Pleuritic Pain, Sputum, Wheezing Cardiovascular: negative: chest pain, palpitations, orthopnea, paroxysmal nocturnal dyspnea, edema, light headedness, other Gastrointestinal: negative: Nausea, Vomiting, Abdominal Pain, Diarrhea, Constipation, Melena, Hematochezia, Other - Medications/Allergies Allergies/Adverse Reactions: Allergies Allergy/AdvReac Type Severity Reaction Status Date / Time No Known Drug Allergies Allergy Verified 03/08/18 14:16 Medications: Current Medications Acetaminophen (Tylenol Elixir) 1,000 mg PER TUBE Q6H PRN PRN Reason: Headache/Fever or Pain Last Admin: 04/09/18 20:58 Dose: 1,000 mg Albuterol/Ipratropium (Duoneb) 3 ml NEB [id number] [facility]S [facility]CLUDE 234 BEDS AT [facility] Last Admin: 04/09/18 19:03 Dose: 3 ml Amiodarone HCl (Cordarone) 200 mg PO DAILY [facility] 234 BEDS AT [facility] Last Admin: 04/09/18 09:05 Dose: 200 mg Lipase/Protease/Amylase ([place] [id number]) 1 cap FS .PER PROTOCOL PRN PRN Reason: TUBE OCCLUSION PROTOCOL Apixaban (Eliquis) 5 mg PO BID [facility] 234 BEDS AT [facility] Last Admin: 04/09/18 20:48 Dose: 5 mg Aspirin (Aspirin Chewable) 81 mg PO DAILY [facility] 234 BEDS AT [facility] Last Admin: 04/09/18 09:07 Dose: 81 mg Bupropion HCl (Wellbutrin) 150 mg PER TUBE BID [facility]CLUDE 234 BEDS AT [facility] Last Admin: 04/09/18 20:48 Dose: 150 mg Clonidine (Catapres) 0.1 mg PO Q4H PRN PRN Reason: Systolic BP > 180 Last Admin: 03/20/18 21:05 Dose: 0.1 mg Furosemide (Lasix) 40 mg SLOW IVP 0600 [facility] 234 BEDS AT [facility] Last Admin: 04/09/18 05:34 Dose: 40 mg Hydralazine HCl (Apresoline) 10 mg SLOW IVP Q4H PRN PRN Reason: Systolic BP > 180 Last Admin: 03/14/18 17:06 Dose: 10 mg Dextrose/Water (D5w) 1,000 mls @ 50 mls/hr IV .Q20H [facility] 234 BEDS AT [facility] Last Admin: 04/09/18 05:34 Dose: 1,000 mls Ceftriaxone Sodium 2 gm/ (Sodium Chloride) 100 mls @ 200 mls/hr IVPB 0900 [facility]S [facility]CLUDE 234 BEDS AT [facility] Last Admin: 04/09/18 09:16 Dose: 100 mls Losartan Potassium (Cozaar) 25 mg PO DAILY [facility] 234 BEDS AT [facility] Last Admin: 04/09/18 09:06 Dose: 25 mg Ondansetron HCl (Zofran Odt) 4 mg PO Q6H PRN PRN Reason: Nausea/Vomiting Last Admin: 04/03/18 09:09 Dose: 4 mg Ondansetron HCl (Zofran) 4 mg IVP Q6H PRN PRN Reason: Nausea/Vomiting Pantoprazole Sodium (Protonix) 40 mg IVP DAILY [facility] 234 BEDS AT [facility] Last Admin: 04/09/18 09:06 Dose: 40 mg Potassium Chloride (Klor-Con) 20 meq PO QAM-WM COUNTS INCLUDE 234 BEDS AT [facility] Sodium Bicarbonate (Bicarbonate, Sodium) 650 mg PER TUBE .PER PROTOCOL PRN PRN Reason: ENTERAL TUBE OCCLUSION Sodium Chloride (Flush - Normal Saline) 10 ml IVF Q12HR [facility] Last Admin: 04/09/18 20:49 Dose: 10 ml Sodium Chloride (Flush - Normal Saline) 10 ml IVF PRN PRN PRN Reason: Saline Flush Last Admin: 03/14/18 08:28 Dose: 10 ml
[2018-04-10] MEDS: Dextrose 5% in Water 1,000 ML IV SCH ×3 (03:22→23:19)
[2018-04-10 05:18] LABS: BUN (Urea Nitrogen) 44 mg/dL (9.8-20.1); Calc. Creatinine Clearance 192 mL/min (70-130); Calcium 8.9 mg/dL (7.8-10.44); Estimated GFR-MDRD 70; Glucose 92 mg/dL (80-115)
[2018-04-10 05:27] LABS: Anion Gap 14 mmol/L (10-20); Carbon Dioxide 35 mmol/L (23-31); Chloride 100 mmol/L (98-107); Sodium 145 mmol/L (136-145)
[2018-04-10 05:43] LABS: #Basophils 0.1 thou/uL (0.0-0.2); #Eosinphils 1.5 thou/uL (0.0-0.7); #Lymphocytes 0.9 thou/uL (1.20-3.40); #Monocytes 0.9 thou/uL (0.11-0.59); #Neutrophils 2.9 thou/uL (1.40-6.50); %Basophils 1.2 % (0.0-1.0); %Eosinophils 24.2 % (0.0-10.0); %Lymphocytes 14.3 % (21.0-51.0); %Monocytes 14.6 % (0.0-10.0); %Neutrophils 45.7 % (42.0-75.0); Anisocytosis SLIGHT = 6-15 cells (100X) (0-5/hpf); Hemoglobin 10.3 g/dL (12.0-16.0); MDiff Complete? YES; Mean Corpuscular HGB CONC 28.5 g/dL (32.0-36.0); Mean Corpuscular Hemoglobin 26.2 pg (27.0-31.0); Mean Corpuscular Volume 92.1 fl (81.0-99.0); Mean Platelet Volume 9.8 fL (7.4-10.4); PLT Morphology Comment Appears Decreased; Platelet Count 96 thou/uL (130-400); RBC Distribution Width 23.7 % (11.5-14.5); Red Blood Cell (RBC) Count 3.92 mill/uL (4.20-5.40); White Blood Cell (WBC) Count 6.3 thou/uL (4.8-10.8)
[2018-04-10] MEDS: Furosemide 40 MG/4 ML VIAL SLOW IVP SCH (06:13)
--- NOTE | 2018-04-10 09:45 | PRG ---
DATE OF SERVICE: 04/10/2018 SERVICE: Pulmonary Medicine. INTERVAL HISTORY: The patient is doing fine from a respiratory standpoint. She denies any fevers, c hills, nausea, vomiting, shortness of breath, or chest discomfort. Otherwise, there has been no inte rval change to her condition. She was able to stand for 18 seconds yesterday. She felt very weak, b ut is very happy that she is making progress. PHYSICAL EXAMINATION: VITAL SIGNS: Afebrile, pulse 70, blood pressure 101/49, respirations 19, saturation 92% on trach col lar. HEENT: Normocephalic and atraumatic. Sclerae are white. Conjunctivae pink. Oral and nasal mucosa is moist without lesions. LUNGS: Decent air entry. There is no prolonged expiratory phase. Rhonchi and crackles are present. No significant wheezing. HEART: Normal rate, regular. ABDOMEN: Soft, nontender, nondistended. Bowel sounds are positive. MUSCULOSKELETAL: No cyanosis or clubbing. There is 2+ pitting in the right upper extremity. There is 1+ pitting in the bilateral lower extremities. There is trace pitting in the left upper extremity. GENITOURINARY: No Tolbert catheter in place. LABORATORY DATA: WBC 6.3, hemoglobin 10.3, platelets 96,000. Basic metabolic profile is essentially unremarkable. The sodium is gently downtrending into the normal range of 145, chloride 100, BUN 44, creatinine 0.83. ASSESSMENT: 1. Chronic hypoxic and hypercapnic respiratory failure. 2. Obesity hypoventilation syndrome. 3. Morbid obesity. 4. Deconditioning. 5. Sepsis. 6. Urinary tract infection, secondary to Streptococcus. 7. Hypernatremia, resolved. 8. Major depressive disorder. DISCUSSION AND PLAN: The patient will continue Rocephin for a total duration of 10 days. We will co ntinue mobilizing the patient as best as she can tolerate. I will drop her free water a little bit, but this is primarily in place to prevent her from developing significant hypernatremia, as she has d one a couple times in the past. She remains volume overloaded and we will continue to diurese her. Laboratory holiday will be provided through the weekend.
[2018-04-10] MEDS: Amiodarone 200 MG TAB PO SCH (09:59)
[2018-04-10] MEDS: Losartan 25 MG TAB PO SCH (09:59)
[2018-04-10] MEDS: cefTRIAXone\\ROCEPHIN 2 GM in Sodium Chloride 0.9% 100 ML IVPB SCH (09:59)
[2018-04-10] MEDS: Pantoprazole 40 MG VIAL IVP SCH (10:00)
--- NOTE | 2018-04-10 10:16 | PDOC.PN ---
- Subjective Encounter Start Date: 04/10/18 Encounter Start Time: 09:00 -: old records requested/rev Patient seen and examined for nuvia. No overnight events - Objective Resuscitation Status: Resuscitation Status FULL:Full Resuscitation MAR Reviewed: Yes Vital Signs & Weight: Vital Signs (12 hours) Temp Pulse Resp BP Pulse Ox 04/10/18 07:09 70 19 92 L 04/10/18 04:00 98.3 F 04/10/18 02:00 16 04/10/18 01:08 68 04/10/18 01:07 94 L 04/10/18 00:00 98.2 F 18 04/09/18 23:05 72 101/45 L Weight Admit Weight 600 lb Weight 376 lb 1.738 oz Most Recent Monitor Data Heart Rate from ECG 73 NIBP 101/49 NIBP BP-Mean 60 Respiration from ECG 19 SpO2 92 I&O: 04/09/18 04/10/18 04/11/18 06:59 06:59 06:59 Intake Total 2169 1923 Output Total 1480 1740 Balance 689 183 Result Diagrams: 04/10/18 04:40 04/10/18 04:40 EKG Reviewed by me: Yes (nsr) Phys Exam - Physical Examination Constitutional: NAD HEENT: PERRLA, moist MMs, sclera anicteric Neck: no JVD, supple trach+ Respiratory: no wheezing, no rales, no rhonchi Cardiovascular: RRR, no significant murmur, no rub Gastrointestinal: soft, non-tender, no distention, positive bowel sounds PEG+ chronic lymphoedeam Lymphatic: no nodes Psychiatric: normal affect Skin: no rash, normal turgor Dx/Plan (1) Acute respiratory failure with hypoxia and hypercapnia Code(s): J96.01 - ACUTE RESPIRATORY FAILURE WITH HYPOXIA; J96.02 - ACUTE RESPIRATORY FAILURE WITH HYPERCAPNIA Status: Acute Comment: s/p trach/PEG (2) Thrombocytopenia Code(s): D69.6 - THROMBOCYTOPENIA, UNSPECIFIED Status: Acute (3) UTI (urinary tract infection) Status: Acute (4) Anemia, normocytic normochromic Code(s): D64.9 - ANEMIA, UNSPECIFIED Status: Chronic (5) Chronic a-fib Code(s): I48.2 - CHRONIC ATRIAL FIBRILLATION Status: Chronic Comment: on anticoag/Amidarone. Now paroxysmal (6) Chronic diastolic CHF (congestive heart failure), NYHA class 3 Code(s): I50.32 - CHRONIC DIASTOLIC (CONGESTIVE) HEART FAILURE Status: Chronic Comment: Stable. Diuretics initially held 2/2 azotemia. Will be given PRN. (7) Morbid obesity with BMI of 60.0-69.9, adult Code(s): E66.01 - MORBID (SEVERE) OBESITY DUE TO EXCESS CALORIES; Z68.44 - BODY MASS INDEX (BMI) 60.0-69.9, ADULT Status: Chronic (8) NUVIA (obstructive sleep apnea) Code(s): G47.33 - OBSTRUCTIVE SLEEP APNEA (ADULT) (PEDIATRIC) Status: Chronic (9) Physical deconditioning Code(s): R53.81 - OTHER MALAISE Status: Chronic (10) Pickwickian syndrome Code(s): E66.2 - MORBID (SEVERE) OBESITY WITH ALVEOLAR HYPOVENTILATION Status : Chronic Comment: s/p trach collar. - Plan cont current plan of care * if pulmonary ok, will consider transfer to imcu vs medical floor * discharge for this pt is challenging. * will need to use cpap * once she is able to show ambulation, then we can consider discharge to home as she is not having funding. * medication reviewed as below * symptomatic treatment Review of Systems - Review of Systems Constitutional: negative: fever, chills, sweats, weakness, malaise, other Eyes: negative: Pain, Vision Change, Conjunctivae Inflammation, Eyelid Inflammation, Redness, Other ENT: negative: Ear Pain, Ear Discharge, Nose Pain, Nose Discharge, Nose Congestion, Mouth Pain, Mouth Swelling, Throat Pain, Throat Swelling, Other Respiratory: negative: Cough, Dry, Shortness of Breath, Hemoptysis, SOB with Excertion, Pleuritic Pain, Sputum, Wheezing Cardiovascular: negative: chest pain, palpitations, orthopnea, paroxysmal nocturnal dyspnea, edema, light headedness, other Gastrointestinal: negative: Nausea, Vomiting, Abdominal Pain, Diarrhea, Constipation, Melena, Hematochezia, Other Genitourinary: negative: Dysuria, Frequency, Incontinence, Hematuria, Retention , Other - Medications/Allergies Allergies/Adverse Reactions: Allergies Allergy/AdvReac Type Severity Reaction Status Date / Time No Known Drug Allergies Allergy Verified 03/08/18 14:16 Medications: Current Medications Acetaminophen (Tylenol Elixir) 1,000 mg PER TUBE Q6H PRN PRN Reason: Headache/Fever or Pain Last Admin: 04/09/18 20:58 Dose: 1,000 mg Albuterol/Ipratropium (Duoneb) 3 ml NEB [id number] [facility] Last Admin: 04/10/18 07:09 Dose: 3 ml Amiodarone HCl (Cordarone) 200 mg PO DAILY [facility] Last Admin: 04/10/18 09:59 Dose: 200 mg Lipase/Protease/Amylase ([place] [id number]) 1 cap FS .PER PROTOCOL PRN PRN Reason: TUBE OCCLUSION PROTOCOL Apixaban (Eliquis) 5 mg PO BID [facility] Last Admin: 04/09/18 20:48 Dose: 5 mg Aspirin (Aspirin Chewable) 81 mg PO DAILY [facility] Last Admin: 04/10/18 09:59 Dose: 81 mg Bupropion HCl (Wellbutrin) 150 mg PER TUBE BID [facility] Last Admin: 04/09/18 20:48 Dose: 150 mg Clonidine (Catapres) 0.1 mg PO Q4H PRN PRN Reason: Systolic BP > 180 Last Admin: 03/20/18 21:05 Dose: 0.1 mg Furosemide (Lasix) 40 mg SLOW IVP 0600 [facility] Last Admin: 04/10/18 06:13 Dose: 40 mg Furosemide (Lasix) 40 mg SLOW IVP 1700 [facility] Stop: 04/10/18 19:00 Hydralazine HCl (Apresoline) 10 mg SLOW IVP Q4H PRN PRN Reason: Systolic BP > 180 Last Admin: 03/14/18 17:06 Dose: 10 mg Dextrose/Water (D5w) 1,000 mls @ 50 mls/hr IV .Q20H [facility] Last Admin: 04/10/18 03:22 Dose: 1,000 mls Ceftriaxone Sodium 2 gm/ (Sodium Chloride) 100 mls @ 200 mls/hr IVPB 0900 [facility] Last Admin: 04/10/18 09:59 Dose: 100 mls Losartan Potassium (Cozaar) 25 mg PO DAILY [facility] Last Admin: 04/10/18 09:59 Dose: 25 mg Ondansetron HCl (Zofran Odt) 4 mg PO Q6H PRN PRN Reason: Nausea/Vomiting Last Admin: 04/03/18 09:09 Dose: 4 mg Ondansetron HCl (Zofran) 4 mg IVP Q6H PRN PRN Reason: Nausea/Vomiting Pantoprazole Sodium (Protonix) 40 mg IVP DAILY [facility] Last Admin: 04/10/18 10:00 Dose: 40 mg Potassium Chloride (Klor-Con) 20 meq PO QAM-WM [facility] Last Admin: 04/10/18 09:59 Dose: 20 meq Sodium Bicarbonate (Bicarbonate, Sodium) 650 mg PER TUBE .PER PROTOCOL PRN PRN Reason: ENTERAL TUBE OCCLUSION Sodium Chloride (Flush - Normal Saline) 10 ml IVF Q12HR [facility] Last Admin: 04/10/18 10:01 Dose: 10 ml Sodium Chloride (Flush - Normal Saline) 10 ml IVF PRN PRN PRN Reason: Saline Flush Last Admin: 03/14/18 08:28 Dose: 10 ml
[2018-04-10] MEDS: buPROPion 75 MG TAB PER TUBE SCH ×2 (10:48→20:58)
[2018-04-10] MEDS: Apixaban 5 MG TAB PO SCH ×2 (10:48→20:58)
[2018-04-10] MEDS ORDERED: Linezolid 600 MG TAB PO SCH (14:15)
[2018-04-10] MEDS ORDERED: Furosemide 40 MG/4 ML VIAL SLOW IVP SCH (17:00)
[2018-04-10] MEDS: Linezolid 600 MG TAB PO SCH (20:58)
[2018-04-11] MEDS: Furosemide 40 MG/4 ML VIAL SLOW IVP SCH (05:53)
[2018-04-11] MEDS: Losartan 25 MG TAB PO SCH (08:19)
[2018-04-11] MEDS: Pantoprazole 40 MG VIAL IVP SCH (08:20)
[2018-04-11] MEDS: Linezolid 600 MG TAB PO SCH ×2 (08:20→21:28)
[2018-04-11] MEDS: Amiodarone 200 MG TAB PO SCH (08:20)
[2018-04-11] MEDS: Apixaban 5 MG TAB PO SCH ×2 (08:20→21:28)
[2018-04-11] MEDS: buPROPion 75 MG TAB PER TUBE SCH ×2 (08:38→21:28)
[2018-04-11] MEDS: Acetaminophen 650 MG/20.3 ML UDCUP PER TUBE PRN ×2 (09:30→21:28)
[2018-04-11] MEDS: Dextrose 5% in Water 1,000 ML IV SCH ×2 (09:30→21:37)
--- NOTE | 2018-04-11 09:55 | PDOC.PN ---
- Subjective Encounter Start Date: 04/11/18 Encounter Start Time: 09:40 Patient seen and examined for nuvia. No new complaints. No overnight events - Objective Resuscitation Status: Resuscitation Status FULL:Full Resuscitation MAR Reviewed: Yes Vital Signs & Weight: Vital Signs (12 hours) Temp Pulse Resp BP Pulse Ox 04/11/18 07:00 97.9 F 74 22 H 107/49 L 99 04/11/18 06:46 70 14 98 04/11/18 03:51 98.7 F 70 16 98/45 L 97 04/11/18 00:04 71 04/11/18 00:01 70 18 96 04/10/18 23:51 98.4 F 68 17 103/48 L 97 Weight Admit Weight 600 lb Weight 376 lb 1.738 oz Most Recent Monitor Data Heart Rate from ECG 73 NIBP 109/61 NIBP BP-Mean 72 Respiration from ECG 29 SpO2 94 I&O: 04/10/18 04/11/18 04/12/18 06:59 06:59 06:59 Intake Total 1923 1244 Output Total 1740 1465 Balance 183 -221 Result Diagrams: 04/10/18 04:40 04/10/18 04:40 EKG Reviewed by me: Yes (nsr) Phys Exam - Physical Examination Constitutional: NAD HEENT: PERRLA, moist MMs, sclera anicteric Neck: no JVD, supple trach+ Respiratory: no wheezing, no rales, no rhonchi Cardiovascular: RRR, no significant murmur, no rub Gastrointestinal: soft, non-tender, no distention, positive bowel sounds PEG+ Musculoskeletal: pulses present, edema present lymhoedema+ Neurological: moves all 4 limbs Lymphatic: no nodes Psychiatric: normal affect Skin: no rash, normal turgor Dx/Plan (1) Acute respiratory failure with hypoxia and hypercapnia Code(s): J96.01 - ACUTE RESPIRATORY FAILURE WITH HYPOXIA; J96.02 - ACUTE RESPIRATORY FAILURE WITH HYPERCAPNIA Status: Acute Comment: s/p trach/PEG (2) Thrombocytopenia Code(s): D69.6 - THROMBOCYTOPENIA, UNSPECIFIED Status: Acute (3) UTI (urinary tract infection) Status: Acute (4) Anemia, normocytic normochromic Code(s): D64.9 - ANEMIA, UNSPECIFIED Status: Chronic (5) Chronic a-fib Code(s): I48.2 - CHRONIC ATRIAL FIBRILLATION Status: Chronic Comment: on anticoag/A[place]arone. Now paroxysmal (6) Chronic diastolic CHF (congestive heart failure), NYHA class 3 Code(s): I50.32 - CHRONIC DIASTOLIC (CONGESTIVE) HEART FAILURE Status: Chronic Comment: Stable. Diuretics initially held 2/2 azotemia. Will be given PRN. (7) Morbid obesity with BMI of 60.0-69.9, adult Code(s): E66.01 - MORBID (SEVERE) OBESITY DUE TO EXCESS CALORIES; Z68.44 - BODY MASS INDEX (BMI) 60.0-69.9, ADULT Status: Chronic (8) NUVIA (obstructive sleep apnea) Code(s): G47.33 - OBSTRUCTIVE SLEEP APNEA (ADULT) (PEDIATRIC) Status: Chronic (9) Physical deconditioning Code(s): R53.81 - OTHER MALAISE Status: Chronic (10) Pickwickian syndrome Code(s): E66.2 - MORBID (SEVERE) OBESITY WITH ALVEOLAR HYPOVENTILATION Status : Chronic Comment: s/p trach collar. - Plan cont current plan of care, PT/OT, social work program coordinator * at this point she needs aggressive PT, once she shows that she is able to do activity by herself then we can safely discharge to discharge place. * discharge process for her is challenging * medication reviewed as below * symptomatic treatment * continue cpap Review of Systems - Review of Systems Eyes: negative: Pain, Vision Change, Conjunctivae Inflammation, Eyelid Inflammation, Redness, Other ENT: negative: Ear Pain, Ear Discharge, Nose Pain, Nose Discharge, Nose Congestion, Mouth Pain, Mouth Swelling, Throat Pain, Throat Swelling, Other Respiratory: Cough. negative: Dry, Shortness of Breath, Hemoptysis, SOB with Excertion, Pleuritic Pain, Sputum, Wheezing Cardiovascular: negative: chest pain, palpitations, orthopnea, paroxysmal nocturnal dyspnea, edema, light headedness, other Gastrointestinal: negative: Nausea, Vomiting, Abdominal Pain, Diarrhea, Constipation, Melena, Hematochezia, Other Genitourinary: negative: Dysuria, Frequency, Incontinence, Hematuria, Retention , Other Musculoskeletal: negative: Neck Pain, Shoulder Pain, Arm Pain, Back Pain, Hand Pain, Leg Pain, Foot Pain, Other Skin: negative: Rash, Lesions, [place], Bruising, Other - Medications/Allergies Allergies/Adverse Reactions: Allergies Allergy/AdvReac Type Severity Reaction Status Date / Time No Known Drug Allergies Allergy Verified 03/08/18 14:16 Medications: Current Medications Acetaminophen (Tylenol Elixir) 1,000 mg PER TUBE Q6H PRN PRN Reason: Headache/Fever or Pain Last Admin: 04/11/18 09:30 Dose: 1,000 mg Albuterol/Ipratropium (Duoneb) 3 ml NEB [id number] [facility] Last Admin: 04/11/18 06:46 Dose: 3 ml Amiodarone HCl (Cordarone) 200 mg PO DAILY [facility] Last Admin: 04/11/18 08:20 Dose: 200 mg Lipase/Protease/[place]ylase ([place] [id number]) 1 cap FS .PER PROTOCOL PRN PRN Reason: TUBE OCCLUSION PROTOCOL Apixaban (Eliquis) 5 mg PO BID [facility] Last Admin: 04/11/18 08:20 Dose: 5 mg Aspirin (Aspirin Chewable) 81 mg PO DAILY [facility] Last Admin: 04/11/18 08:20 Dose: 81 mg Bupropion HCl (Wellbutrin) 150 mg PER TUBE BID [facility] Last Admin: 04/11/18 08:38 Dose: 150 mg Clonidine (Catapres) 0.1 mg PO Q4H PRN PRN Reason: Systolic BP > 180 Last Admin: 03/20/18 21:05 Dose: 0.1 mg Furosemide (Lasix) 40 mg SLOW IVP 0600 [facility] Last Admin: 04/11/18 05:53 Dose: 40 mg Hydralazine HCl (Apresoline) 10 mg SLOW IVP Q4H PRN PRN Reason: Systolic BP > 180 Last Admin: 03/14/18 17:06 Dose: 10 mg Dextrose/Water (D5w) 1,000 mls @ 50 mls/hr IV .Q20H [facility] Last Admin: 04/11/18 09:30 Dose: 1,000 mls Linezolid (Zyvox) 600 mg PO BID [facility] Last Admin: 04/11/18 08:20 Dose: 600 mg Losartan Potassium (Cozaar) 25 mg PO DAILY [facility] Last Admin: 04/11/18 08:19 Dose: 25 mg Ondansetron HCl (Zofran Odt) 4 mg PO Q6H PRN PRN Reason: Nausea/Vomiting Last Admin: 04/03/18 09:09 Dose: 4 mg Ondansetron HCl (Zofran) 4 mg IVP Q6H PRN PRN Reason: Nausea/Vomiting Pantoprazole Sodium (Protonix) 40 mg IVP DAILY [facility] Last Admin: 04/11/18 08:20 Dose: 40 mg Potassium Chloride (Klor-Con) 20 meq PO QAM-WM [facility] Last Admin: 04/11/18 08:19 Dose: 20 meq Sodium Bicarbonate (Bicarbonate, Sodium) 650 mg PER TUBE .PER PROTOCOL PRN PRN Reason: ENTERAL TUBE OCCLUSION Sodium Chloride (Flush - Normal Saline) 10 ml IVF Q12HR [facility] Last Admin: 04/11/18 08:20 Dose: 10 ml Sodium Chloride (Flush - Normal Saline) 10 ml IVF PRN PRN PRN Reason: Saline Flush Last Admin: 04/11/18 05:53 Dose: 10 ml
[2018-04-11] MEDS: Scopolamine 1.5 mg/72 hour Patch TD SCH (12:34)
--- NOTE | 2018-04-11 13:59 | PRG ---
DATE OF SERVICE: 04/11/2018 SUBJECTIVE: This morning, she still has a large amount of secretions. OBJECTIVE: VITAL SIGNS: Sats are 98 on trach collar, respiratory rate 22, temperature 97, blood pressure 107/49 . CHEST: Extensive rhonchi. CARDIAC: Normal S1 and S2, no gallops. ABDOMEN: Soft, no masses. IMPRESSION: 1. Respiratory failure. 2. Morbid obesity. 3. Tracheostomy. 4. Sleep apnea. 5. Supraventricular tachycardia. PLAN: Awaiting placement. We will try a Scop patch. We will follow.
[2018-04-11] MEDS ORDERED: Loperamide HCl 2 MG CAP PER TUBE PRN (15:49)
[2018-04-11] MEDS ORDERED: Chloraseptic Spray 180 ml Bottle PO PRN (15:49)
[2018-04-11] MEDS ORDERED: Eucerin (Mineral Oil/Petrolatum,White) 30 gm Jar TOP PRN (15:49)
[2018-04-11] MEDS ORDERED: Milk Of Magnesia 30 ML UDCUP PER TUBE PRN (15:49)
[2018-04-11] MEDS ORDERED: Mag-Al 1200 mg/1200 mg/30 ML UDCUP PER TUBE PRN (15:49)
[2018-04-11] MEDS ORDERED: Sodium Chloride 0.65% Nasal 44 ML BOT EA NARE PRN (15:49)
[2018-04-11] MEDS ORDERED: Artificial Tear Sol 15 ML BOT EA EYE PRN (15:49)
[2018-04-11] MEDS ORDERED: Diabetic Tussin 200 MG/10 ML UDCUP PER TUBE PRN (15:49)
[2018-04-11] MEDS ORDERED: Senokot 8.6 MG TAB PER TUBE PRN (15:49)
[2018-04-12] MEDS: Furosemide 40 MG/4 ML VIAL SLOW IVP SCH (05:41)
--- NOTE | 2018-04-12 09:05 | PDOC.PN ---
- Subjective Encounter Start Date: 04/12/18 Encounter Start Time: 08:45 Patient seen and examined for nuvia. No new complaints. No overnight events - Objective Resuscitation Status: Resuscitation Status FULL:Full Resuscitation MAR Reviewed: Yes Vital Signs & Weight: Vital Signs (12 hours) Temp Pulse Resp BP BP Pulse Ox 04/12/18 08:00 97.8 F 78 20 92 L 04/12/18 07:51 74 18 93 L 04/12/18 07:45 97.8 F 78 20 113/52 L 92 L 04/12/18 03:30 98.3 F 74 20 95/39 L 93 L 04/12/18 00:13 69 96/37 L 04/12/18 00:00 98.9 F 71 18 101/43 L 96 Weight Admit Weight 600 lb Weight 376 lb 1.738 oz Most Recent Monitor Data Heart Rate from ECG 73 NIBP 109/61 NIBP BP-Mean 72 Respiration from ECG 29 SpO2 94 I&O: 04/11/18 04/12/18 04/13/18 06:59 06:59 06:59 Intake Total 1844 2070 Output Total 1890 1900 Balance -46 170 Result Diagrams: 04/10/18 04:40 04/10/18 04:40 EKG Reviewed by me: Yes (nsr) Phys Exam - Physical Examination Constitutional: NAD HEENT: PERRLA, moist MMs, sclera anicteric Neck: no JVD, supple tracheostomy+ Respiratory: no wheezing, no rales, no rhonchi Cardiovascular: RRR, no significant murmur, no rub Gastrointestinal: soft, non-tender, no distention, positive bowel sounds PEG+ Musculoskeletal: pulses present, edema present lymphoedema Neurological: moves all 4 limbs Lymphatic: no nodes Psychiatric: normal affect Skin: no rash, normal turgor Dx/Plan (1) Acute respiratory failure with hypoxia and hypercapnia Code(s): J96.01 - ACUTE RESPIRATORY FAILURE WITH HYPOXIA; J96.02 - ACUTE RESPIRATORY FAILURE WITH HYPERCAPNIA Status: Acute Comment: s/p trach/PEG (2) Thrombocytopenia Code(s): D69.6 - THROMBOCYTOPENIA, UNSPECIFIED Status: Acute (3) UTI (urinary tract infection) Status: Acute (4) Anemia, normocytic normochromic Code(s): D64.9 - ANEMIA, UNSPECIFIED Status: Chronic (5) Chronic a-fib Code(s): I48.2 - CHRONIC ATRIAL FIBRILLATION Status: Chronic Comment: on anticoag/Amidarone. Now paroxysmal (6) Chronic diastolic CHF (congestive heart failure), NYHA class 3 Code(s): I50.32 - CHRONIC DIASTOLIC (CONGESTIVE) HEART FAILURE Status: Chronic Comment: Stable. Diuretics initially held 2/2 azotemia. Will be given PRN. (7) Morbid obesity with BMI of 60.0-69.9, adult Code(s): E66.01 - MORBID (SEVERE) OBESITY DUE TO EXCESS CALORIES; Z68.44 - BODY MASS INDEX (BMI) 60.0-69.9, ADULT Status: Chronic (8) NUVIA (obstructive sleep apnea) Code(s): G47.33 - OBSTRUCTIVE SLEEP APNEA (ADULT) (PEDIATRIC) Status: Chronic (9) Physical deconditioning Code(s): R53.81 - OTHER MALAISE Status: Chronic (10) Pickwickian syndrome Code(s): E66.2 - MORBID (SEVERE) OBESITY WITH ALVEOLAR HYPOVENTILATION Status : Chronic Comment: s/p trach collar. - Plan cont current plan of care, PT/OT, geriatric social worker * medication reviewed as below * symptomatic treatment * continue cpap * social work is in progress for discharge planning * supportive care * DC IVF * continue lasix. Review of Systems - Review of Systems Other: difficult to review due to tach status, unable to communicate, so not reliable - Medications/Allergies Allergies/Adverse Reactions: Allergies Allergy/AdvReac Type Severity Reaction Status Date / Time No Known Drug Allergies Allergy Verified 03/08/18 14:16 Medications: Current Medications Acetaminophen (Tylenol Elixir) 1,000 mg PER TUBE Q6H PRN PRN Reason: Headache/Fever or Pain Last Admin: 04/11/18 21:28 Dose: 1,000 mg Al Hydroxide/Mg Hydroxide (Maalox) 15 ml PER TUBE Q4H PRN PRN Reason: Heartburn or Indigestion Albuterol/Ipratropium (Duoneb) 3 ml NEB [id number] [facility] Last Admin: 04/12/18 07:51 Dose: 3 ml Amiodarone HCl (Cordarone) 200 mg PO DAILY [facility] Last Admin: 04/11/18 08:20 Dose: 200 mg Lipase/Protease/Amylase ([place] [id number]) 1 cap FS .PER PROTOCOL PRN PRN Reason: TUBE OCCLUSION PROTOCOL Apixaban (Eliquis) 5 mg PO BID [facility] Last Admin: 04/11/18 21:28 Dose: 5 mg Artificial Tears (Tears Renewed 15ml Bottle) 0 drop EA EYE PRN PRN PRN Reason: Dry Eyes Aspirin (Aspirin Chewable) 81 mg PO DAILY [facility] Last Admin: 04/11/18 08:20 Dose: 81 mg Bupropion HCl (Wellbutrin) 150 mg PER TUBE BID [facility] Last Admin: 04/11/18 21:28 Dose: 150 mg Clonidine (Catapres) 0.1 mg PO Q4H PRN PRN Reason: Systolic BP > 180 Last Admin: 03/20/18 21:05 Dose: 0.1 mg Furosemide (Lasix) 40 mg SLOW IVP 0600 [facility] Last Admin: 04/12/18 05:41 Dose: 40 mg Guaifenesin (Robitussin Sf) 200 mg PER TUBE Q4H PRN PRN Reason: Cough Hydralazine HCl (Apresoline) 10 mg SLOW IVP Q4H PRN PRN Reason: Systolic BP > 180 Last Admin: 03/14/18 17:06 Dose: 10 mg Linezolid (Zyvox) 600 mg PO BID [facility] Last Admin: 04/11/18 21:28 Dose: 600 mg Loperamide HCl (Imodium) 2 mg PER TUBE PRN PRN PRN Reason: Diarrhea/Loose Stools Losartan Potassium (Cozaar) 12.5 mg PO DAILY [facility] Magnesium Hydroxide (Milk Of Magnesium) 30 ml PER TUBE DAILYPRN PRN PRN Reason: Constipation Mineral Oil/White Petrolatum (Eucerin Cream) 0 gm TOP BIDPRN PRN PRN Reason: Dry Skin Ondansetron HCl (Zofran Odt) 4 mg PO Q6H PRN PRN Reason: Nausea/Vomiting Last Admin: 04/03/18 09:09 Dose: 4 mg Ondansetron HCl (Zofran) 4 mg IVP Q6H PRN PRN Reason: Nausea/Vomiting Pantoprazole Sodium (Protonix) 40 mg PER TUBE DAILY [facility] Phenol (Chloraseptic [place] 180 Ml Bot) 0 ml PO PRN PRN PRN Reason: Sore Throat Potassium Chloride (Klor-Con) 20 meq PO QAM-[facility] Last Admin: 04/11/18 08:19 Dose: 20 meq Scopolamine (Transderm Scop) 1.5 mg TD Q3D [facility] Last Admin: 04/11/18 12:34 Dose: 1.5 mg Senna (Senokot) 2 tab PER TUBE HSPRN PRN PRN Reason: Constipation Sodium Bicarbonate (Bicarbonate, Sodium) 650 mg PER TUBE .PER PROTOCOL PRN PRN Reason: ENTERAL TUBE OCCLUSION Sodium Chloride (Flush - Normal Saline) 10 ml IVF Q12HR [facility] Last Admin: 04/11/18 21:28 Dose: 10 ml Sodium Chloride (Flush - Normal Saline) 10 ml IVF PRN PRN PRN Reason: Saline Flush Last Admin: 04/11/18 05:53 Dose: 10 ml Sodium Chloride ([place] Nasal [place] 0.65%) 0 ml EA NARE QIDPRN PRN PRN Reason: Nasal Congestion
[2018-04-12] MEDS: Apixaban 5 MG TAB PO SCH ×2 (09:20→21:05)
[2018-04-12] MEDS: buPROPion 75 MG TAB PER TUBE SCH ×2 (09:21→21:04)
[2018-04-12] MEDS: Pantoprazole 40 MG GRANULES PACKET PER TUBE SCH (09:21)
[2018-04-12] MEDS: Linezolid 600 MG TAB PO SCH ×2 (09:21→21:04)
[2018-04-12] MEDS: Acetaminophen 650 MG/20.3 ML UDCUP PER TUBE PRN ×2 (10:01→21:04)
--- NOTE | 2018-04-12 12:43 | PRG ---
DATE OF SERVICE: 04/12/2018 SUBJECTIVE: A 62-year-old female, continues to have intermittent desaturations in the 80s. OBJECTIVE: VITAL SIGNS: Sats are 98% trach collar, respiration 20, temperature 97, blood pressure 130/52. CHEST: With anterior rhonchi. CARDIAC: Normal S1, S2. ABDOMEN: Soft, no mass. IMPRESSION: Trach, morbid obesity, secretions, supraventricular tachycardia. Suction p.r.n., Mucinex p.r.n. Supportive care.
[2018-04-12] MEDS: Amiodarone 200 MG TAB PO SCH (14:15)
[2018-04-12] MEDS: Losartan 25 MG TAB PO SCH (14:16)
[2018-04-13] MEDS: Furosemide 40 MG/4 ML VIAL SLOW IVP SCH (05:41)
--- NOTE | 2018-04-13 08:50 | PRG ---
DATE OF SERVICE: 04/13/2018 Over the last several days she has been moved out to the Intermediate Care Unit from ICU. It is my u nderstanding that she is still using the ventilator occasionally at night between 2200 and 1 a.m. Ricardo jasmine has been placed in isolation for VRE in her urine. PHYSICAL EXAMINATION: CURRENT VITAL SIGNS: Temperature 98.3, pulse 74, respirations 20, O2 sat 100% on trach collar, blood pressure 115/50, 24-hour intake 2070, output 1900. HEENT: Unremarkable. NECK: Trach in good position. She cannot move air around her mouth when the trachea is occluded. CARDIAC: S1 and S2 regular. LUNGS: Distant but clear breath sounds. ABDOMEN: Soft, nontender, nondistended. EXTREMITIES: Slight edema. There have been no labs done since 04/10/2018. ASSESSMENT: 1. Obesity hypoventilation syndrome. 2. Status post tracheostomy placement. 3. Chronic hypoxic and hypercapnic respiratory failure. 4. Empirically anticoagulated by Cardiology at the time of admission for question of a pulmonary emb olus - the patient is too big to fit in the CT scanner to further workup. PLAN: 1. Try to reduce tidal mechanical ventilation. 2. Recheck labs to make sure she is not being overly diuresed. 3. Work on placement if at all possible.
[2018-04-13] MEDS: Apixaban 5 MG TAB PO SCH ×2 (10:00→21:20)
[2018-04-13] MEDS: Amiodarone 200 MG TAB PO SCH (10:00)
[2018-04-13] MEDS: Pantoprazole 40 MG GRANULES PACKET PER TUBE SCH (10:00)
[2018-04-13] MEDS: Linezolid 600 MG TAB PO SCH ×2 (10:00→21:20)
[2018-04-13] MEDS: buPROPion 75 MG TAB PER TUBE SCH ×2 (10:00→21:20)
[2018-04-13] MEDS: Losartan 25 MG TAB PO SCH (10:01)
--- NOTE | 2018-04-13 10:54 | PDOC.PN ---
- Subjective Encounter Start Date: 04/13/18 Encounter Start Time: 09:00 Patient seen and examined for nuvia. No new complaints. No overnight events - Objective Resuscitation Status: Resuscitation Status FULL:Full Resuscitation MAR Reviewed: Yes Vital Signs & Weight: Vital Signs (12 hours) Temp Pulse Resp BP BP Pulse Ox 04/13/18 10:01 70 20 111/63 100 04/13/18 08:23 98.3 F 66 20 100 04/13/18 08:17 100 04/13/18 08:11 74 20 100 04/13/18 07:33 98.3 F 66 20 115/50 L 92 L 04/13/18 04:00 98.0 F 71 20 106/42 L 94 L 04/13/18 00:07 71 106/40 L 04/12/18 23:58 98.5 F 70 20 114/48 L 94 L Weight Admit Weight 600 lb Weight 376 lb 1.738 oz Most Recent Monitor Data Heart Rate from ECG 73 NIBP 109/61 NIBP BP-Mean 72 Respiration from ECG 29 SpO2 94 I&O: 04/12/18 04/13/18 04/14/18 06:59 06:59 06:59 Intake Total 2070 710 330 Output Total 1900 375 Balance 170 335 330 Result Diagrams: 04/10/18 04:40 04/10/18 04:40 EKG Reviewed by me: Yes (nsr) Phys Exam - Physical Examination Constitutional: NAD HEENT: PERRLA, moist MMs, sclera anicteric Neck: no JVD, supple trach+ Respiratory: no wheezing, no rales, no rhonchi Cardiovascular: RRR, no significant murmur, no rub Gastrointestinal: soft, non-tender, no distention, positive bowel sounds PEG+ Musculoskeletal: edema present chronic lymphoedema Neurological: non-focal, normal sensation Lymphatic: no nodes Psychiatric: normal affect Skin: no rash, normal turgor Dx/Plan (1) Acute respiratory failure with hypoxia and hypercapnia Code(s): J96.01 - ACUTE RESPIRATORY FAILURE WITH HYPOXIA; J96.02 - ACUTE RESPIRATORY FAILURE WITH HYPERCAPNIA Status: Acute Comment: s/p trach/PEG (2) Thrombocytopenia Code(s): D69.6 - THROMBOCYTOPENIA, UNSPECIFIED Status: Acute (3) UTI (urinary tract infection) Status: Acute (4) Anemia, normocytic normochromic Code(s): D64.9 - ANEMIA, UNSPECIFIED Status: Chronic (5) Chronic a-fib Code(s): I48.2 - CHRONIC ATRIAL FIBRILLATION Status: Chronic Comment: on anticoag/Amidarone. Now paroxysmal (6) Chronic diastolic CHF (congestive heart failure), NYHA class 3 Code(s): I50.32 - CHRONIC DIASTOLIC (CONGESTIVE) HEART FAILURE Status: Chronic Comment: Stable. Diuretics initially held 2/2 azotemia. Will be given PRN. (7) Morbid obesity with BMI of 60.0-69.9, adult Code(s): E66.01 - MORBID (SEVERE) OBESITY DUE TO EXCESS CALORIES; Z68.44 - BODY MASS INDEX (BMI) 60.0-69.9, ADULT Status: Chronic (8) NUVIA (obstructive sleep apnea) Code(s): G47.33 - OBSTRUCTIVE SLEEP APNEA (ADULT) (PEDIATRIC) Status: Chronic (9) Physical deconditioning Code(s): R53.81 - OTHER MALAISE Status: Chronic (10) Pickwickian syndrome Code(s): E66.2 - MORBID (SEVERE) OBESITY WITH ALVEOLAR HYPOVENTILATION Status : Chronic Comment: s/p trach collar. - Plan cont current plan of care, continue antibiotics * tracheostomy care as per pulmonary * continue PT * continue Zyvox * discharge planning * medication reviewed as below * symptomatic treatment. Review of Systems - Review of Systems Other: not reliable as she is not able to communicate verbally due to tracheostomy status - Medications/Allergies Allergies/Adverse Reactions: Allergies Allergy/AdvReac Type Severity Reaction Status Date / Time No Known Drug Allergies Allergy Verified 03/08/18 14:16 Medications: Current Medications Acetaminophen (Tylenol Elixir) 1,000 mg PER TUBE Q6H PRN PRN Reason: Headache/Fever or Pain Last Admin: 04/12/18 21:04 Dose: 1,000 mg Al Hydroxide/Mg Hydroxide (Maalox) 15 ml PER TUBE Q4H PRN PRN Reason: Heartburn or Indigestion Albuterol/Ipratropium (Duoneb) 3 ml NEB [id number] [facility] Last Admin: 04/13/18 08:11 Dose: 3 ml Amiodarone HCl (Cordarone) 200 mg PO DAILY [facility] Last Admin: 04/13/18 10:00 Dose: 200 mg Lipase/Protease/Amylase ([place] [id number]) 1 cap FS .PER PROTOCOL PRN PRN Reason: TUBE OCCLUSION PROTOCOL Apixaban (Eliquis) 5 mg PO BID [facility] Last Admin: 04/13/18 10:00 Dose: 5 mg Artificial Tears (Tears Renewed 15ml Bottle) 0 drop EA EYE PRN PRN PRN Reason: Dry Eyes Aspirin (Aspirin Chewable) 81 mg PO DAILY [facility] Last Admin: 04/13/18 10:00 Dose: 81 mg Bupropion HCl (Wellbutrin) 150 mg PER TUBE BID [facility] Last Admin: 04/13/18 10:00 Dose: 150 mg Clonidine (Catapres) 0.1 mg PO Q4H PRN PRN Reason: Systolic BP > 180 Last Admin: 03/20/18 21:05 Dose: 0.1 mg Furosemide (Lasix) 40 mg SLOW IVP 0600 [facility] Last Admin: 04/13/18 05:41 Dose: 40 mg Guaifenesin (Robitussin Sf) 200 mg PER TUBE Q4H PRN PRN Reason: Cough Hydralazine HCl (Apresoline) 10 mg SLOW IVP Q4H PRN PRN Reason: Systolic BP > 180 Last Admin: 03/14/18 17:06 Dose: 10 mg Linezolid (Zyvox) 600 mg PO BID [facility] Last Admin: 04/13/18 10:00 Dose: 600 mg Loperamide HCl (Imodium) 2 mg PER TUBE PRN PRN PRN Reason: Diarrhea/Loose Stools Losartan Potassium (Cozaar) 12.5 mg PO DAILY [facility] Last Admin: 04/13/18 10:01 Dose: Not Given Magnesium Hydroxide (Milk Of Magnesium) 30 ml PER TUBE DAILYPRN PRN PRN Reason: Constipation Mineral Oil/White Petrolatum (Eucerin Cream) 0 gm TOP BIDPRN PRN PRN Reason: Dry Skin Ondansetron HCl (Zofran Odt) 4 mg PO Q6H PRN PRN Reason: Nausea/Vomiting Last Admin: 04/03/18 09:09 Dose: 4 mg Ondansetron HCl (Zofran) 4 mg IVP Q6H PRN PRN Reason: Nausea/Vomiting Pantoprazole Sodium (Protonix) 40 mg PER TUBE DAILY [facility] Last Admin: 04/13/18 10:00 Dose: 40 mg Phenol (Chloraseptic [place] 180 Ml Bot) 0 ml PO PRN PRN PRN Reason: Sore Throat Potassium Chloride (Klor-Con) 20 meq PO QAM-WM [facility] Last Admin: 04/13/18 10:00 Dose: 20 meq Scopolamine (Transderm Scop) 1.5 mg TD Q3D [facility] Last Admin: 04/11/18 12:34 Dose: 1.5 mg Senna (Senokot) 2 tab PER TUBE HSPRN PRN PRN Reason: Constipation Sodium Bicarbonate (Bicarbonate, Sodium) 650 mg PER TUBE .PER PROTOCOL PRN PRN Reason: ENTERAL TUBE OCCLUSION Sodium Chloride (Flush - Normal Saline) 10 ml IVF Q12HR [facility] Last Admin: 04/13/18 10:00 Dose: 10 ml Sodium Chloride (Flush - Normal Saline) 10 ml IVF PRN PRN PRN Reason: Saline Flush Last Admin: 04/13/18 05:41 Dose: 10 ml Sodium Chloride ([place] Nasal [place] 0.65%) 0 ml EA NARE QIDPRN PRN PRN Reason: Nasal Congestion
[2018-04-14 05:03] LABS: Hemoglobin 10.2 g/dL (12.0-16.0); Platelet Count 98 thou/uL (130-400)
[2018-04-14 05:20] LABS: Anion Gap 11 mmol/L (10-20); BUN (Urea Nitrogen) 34 mg/dL (9.8-20.1); Calc. Creatinine Clearance 199 mL/min (70-130); Calcium 8.9 mg/dL (7.8-10.44); Carbon Dioxide 37 mmol/L (23-31); Chloride 97 mmol/L (98-107); Estimated GFR-MDRD 73; Glucose 89 mg/dL (80-115); Potassium 3.9 mmol/L (3.5-5.1); Sodium 141 mmol/L (136-145)
[2018-04-14] MEDS: Furosemide 40 MG/4 ML VIAL SLOW IVP SCH (06:09)
--- NOTE | 2018-04-14 07:50 | PRG ---
DATE OF SERVICE: 04/14/2018 She seems to be in good spirits did not use the ventilator last night. PHYSICAL EXAMINATION: VITAL SIGNS: Temperature 97.7, pulse 69, respirations 20, O2 sat 96% on trach collar, blood pressure 112/55. HEENT: Unremarkable. NECK: Trach in good position. LUNGS: Clear. CARDIAC: S1 and S2 regular. ABDOMEN: Soft, obese. LABORATORY DATA: Hemoglobin 10.2, platelet count 98. Sodium 141, potassium 3.9, chloride 97, CO2 37 , BUN 34, creatinine 0.8, glucose 89. ASSESSMENT: 1. Obesity hypoventilation syndrome. 2. Status post tracheostomy placement. 3. VRE. 4. Empirically anticoagulated by Cardiology for question of a pulmonary embolus - clinically. PLAN: 1. Try to get respiratory therapist to locate a smaller trach with plans to change that out. 2. She continues on Zyvox. 3. She is on Eliquis. 4. Continuing once daily Lasix.
--- NOTE | 2018-04-14 10:09 | PDOC.PN ---
- Subjective Encounter Start Date: 04/14/18 Encounter Start Time: 09:00 Patient seen and examined for nuvia. No new complaints. No overnight events - Objective Resuscitation Status: Resuscitation Status FULL:Full Resuscitation MAR Reviewed: Yes Vital Signs & Weight: Vital Signs (12 hours) Temp Pulse Resp BP Pulse Ox 04/14/18 08:00 97.5 F L 70 16 95 04/14/18 07:43 97.5 F L 70 16 112/54 L 91 L 04/14/18 06:16 69 20 96 04/14/18 06:11 68 20 112/55 L 94 L 04/14/18 04:29 97.7 F 66 20 103/49 L 93 L 04/14/18 02:09 70 20 112/51 L 95 04/14/18 00:19 69 22 H 93 L 04/14/18 00:00 98.9 F 71 18 97/57 L 90 L Weight Admit Weight 600 lb Weight 376 lb 1.738 oz Most Recent Monitor Data Heart Rate from ECG 73 NIBP 109/61 NIBP BP-Mean 72 Respiration from ECG 29 SpO2 94 I&O: 04/13/18 04/14/18 04/15/18 06:59 06:59 06:59 Intake Total 710 1190 Output Total 375 1450 Balance 335 -260 Result Diagrams: 04/14/18 04:35 04/14/18 04:35 EKG Reviewed by me: Yes (nsr) Phys Exam - Physical Examination Constitutional: NAD HEENT: PERRLA, moist MMs, sclera anicteric Neck: no JVD, supple trach+ Respiratory: no wheezing, no rales, no rhonchi Cardiovascular: RRR, no significant murmur, no rub Gastrointestinal: soft, non-tender, no distention, positive bowel sounds PEG+ Musculoskeletal: no edema, pulses present Neurological: non-focal Lymphatic: no nodes Psychiatric: normal affect Skin: no rash, normal turgor Dx/Plan (1) Acute respiratory failure with hypoxia and hypercapnia Code(s): J96.01 - ACUTE RESPIRATORY FAILURE WITH HYPOXIA; J96.02 - ACUTE RESPIRATORY FAILURE WITH HYPERCAPNIA Status: Acute Comment: s/p trach/PEG (2) Thrombocytopenia Code(s): D69.6 - THROMBOCYTOPENIA, UNSPECIFIED Status: Acute (3) UTI (urinary tract infection) Status: Acute (4) Anemia, normocytic normochromic Code(s): D64.9 - ANEMIA, UNSPECIFIED Status: Chronic (5) Chronic a-fib Code(s): I48.2 - CHRONIC ATRIAL FIBRILLATION Status: Chronic Comment: on anticoag/Amidarone. Now paroxysmal (6) Chronic diastolic CHF (congestive heart failure), NYHA class 3 Code(s): I50.32 - CHRONIC DIASTOLIC (CONGESTIVE) HEART FAILURE Status: Chronic Comment: Stable. Diuretics initially held 2/2 azotemia. Will be given PRN. (7) Morbid obesity with BMI of 60.0-69.9, adult Code(s): E66.01 - MORBID (SEVERE) OBESITY DUE TO EXCESS CALORIES; Z68.44 - BODY MASS INDEX (BMI) 60.0-69.9, ADULT Status: Chronic (8) NUVIA (obstructive sleep apnea) Code(s): G47.33 - OBSTRUCTIVE SLEEP APNEA (ADULT) (PEDIATRIC) Status: Chronic (9) Physical deconditioning Code(s): R53.81 - OTHER MALAISE Status: Chronic (10) Pickwickian syndrome Code(s): E66.2 - MORBID (SEVERE) OBESITY WITH ALVEOLAR HYPOVENTILATION Status : Chronic Comment: s/p trach collar. - Plan cont current plan of care, continue antibiotics, PT/OT, social work program coordinator, respiratory therapy * medication reviewed as below * symptomatic treatment * rajinder newberry changed to PO * trach care as per pulmonary * continue aggressive PT * continue zyvox. Review of Systems - Review of Systems Other: not reliable due o trach status and unable to communicate verbally - Medications/Allergies Allergies/Adverse Reactions: Allergies Allergy/AdvReac Type Severity Reaction Status Date / Time No Known Drug Allergies Allergy Verified 03/08/18 14:16 Medications: Current Medications Acetaminophen (Tylenol Elixir) 1,000 mg PER TUBE Q6H PRN PRN Reason: Headache/Fever or Pain Last Admin: 04/12/18 21:04 Dose: 1,000 mg Al Hydroxide/Mg Hydroxide (Maalox) 15 ml PER TUBE Q4H PRN PRN Reason: Heartburn or Indigestion Albuterol/Ipratropium (Duoneb) 3 ml NEB [id number] [facility] Last Admin: 04/14/18 06:16 Dose: 3 ml Amiodarone HCl (Cordarone) 200 mg PO DAILY [facility] Last Admin: 04/13/18 10:00 Dose: 200 mg Lipase/Protease/[place]ylase ([place] [id number]) 1 cap FS .PER PROTOCOL PRN PRN Reason: TUBE OCCLUSION PROTOCOL Apixaban (Eliquis) 5 mg PO BID [facility] Last Admin: 04/13/18 21:20 Dose: 5 mg Artificial Tears (Tears Renewed 15ml Bottle) 0 drop EA EYE PRN PRN PRN Reason: Dry Eyes Aspirin (Aspirin Chewable) 81 mg PO DAILY [facility] Last Admin: 04/13/18 10:00 Dose: 81 mg Bupropion HCl (Wellbutrin) 150 mg PER TUBE BID [facility] Last Admin: 04/13/18 21:20 Dose: 150 mg Clonidine (Catapres) 0.1 mg PO Q4H PRN PRN Reason: Systolic BP > 180 Last Admin: 03/20/18 21:05 Dose: 0.1 mg Furosemide (Lasix) [facility] Guaifenesin (Robitussin Sf) 200 mg PER TUBE Q4H PRN PRN Reason: Cough Hydralazine HCl (Apresoline) 10 mg SLOW IVP Q4H PRN PRN Reason: Systolic BP > 180 Last Admin: 03/14/18 17:06 Dose: 10 mg Linezolid (Zyvox) 600 mg PO BID [facility] Last Admin: 04/13/18 21:20 Dose: 600 mg Loperamide HCl (Imodium) 2 mg PER TUBE PRN PRN PRN Reason: Diarrhea/Loose Stools Losartan Potassium (Cozaar) 12.5 mg PO DAILY [facility] Last Admin: 04/13/18 10:01 Dose: Not Given Magnesium Hydroxide (Milk Of Magnesium) 30 ml PER TUBE DAILYPRN PRN PRN Reason: Constipation Mineral Oil/White Petrolatum (Eucerin Cream) 0 gm TOP BIDPRN PRN PRN Reason: Dry Skin Ondansetron HCl (Zofran Odt) 4 mg PO Q6H PRN PRN Reason: Nausea/Vomiting Last Admin: 04/03/18 09:09 Dose: 4 mg Ondansetron HCl (Zofran) 4 mg IVP Q6H PRN PRN Reason: Nausea/Vomiting Pantoprazole Sodium (Protonix) 40 mg PER TUBE DAILY [facility] Last Admin: 04/13/18 10:00 Dose: 40 mg Phenol (Chloraseptic [place] 180 Ml Bot) 0 ml PO PRN PRN PRN Reason: Sore Throat Potassium Chloride (Klor-Con) 20 meq PO QAM-WM [facility] Last Admin: 04/13/18 10:00 Dose: 20 meq Scopolamine (Transderm Scop) 1.5 mg TD Q3D [facility] Last Admin: 04/11/18 12:34 Dose: 1.5 mg Senna (Senokot) 2 tab PER TUBE HSPRN PRN PRN Reason: Constipation Sodium Bicarbonate (Bicarbonate, Sodium) 650 mg PER TUBE .PER PROTOCOL PRN PRN Reason: ENTERAL TUBE OCCLUSION Sodium Chloride (Flush - Normal Saline) 10 ml IVF Q12HR [facility] Last Admin: 04/13/18 21:21 Dose: 10 ml Sodium Chloride (Flush - Normal Saline) 10 ml IVF PRN PRN PRN Reason: Saline Flush Last Admin: 04/13/18 05:41 Dose: 10 ml Sodium Chloride ([place] Nasal [place] 0.65%) 0 ml EA NARE QIDPRN PRN PRN Reason: Nasal Congestion
[2018-04-14] MEDS: Scopolamine 1.5 mg/72 hour Patch TD SCH (10:32)
[2018-04-14] MEDS: Linezolid 600 MG TAB PO SCH ×2 (10:33→20:41)
[2018-04-14] MEDS: buPROPion 75 MG TAB PER TUBE SCH ×2 (10:33→20:41)
[2018-04-14] MEDS: Amiodarone 200 MG TAB PO SCH (10:34)
[2018-04-14] MEDS: Apixaban 5 MG TAB PO SCH ×2 (10:35→20:41)
[2018-04-14] MEDS: Losartan 25 MG TAB PO SCH (10:35)
[2018-04-14] MEDS: Furosemide 40 MG TAB PER TUBE SCH (10:36)
[2018-04-14] MEDS: Pantoprazole 40 MG GRANULES PACKET PER TUBE SCH (10:36)
--- NOTE | 2018-04-15 11:11 | PDOC.PN ---
- Subjective Encounter Start Date: 04/15/18 Encounter Start Time: 08:45 Patient seen and examined for nuvia. today she has bleeding through tracheostomy. No overnight events - Objective Resuscitation Status: Resuscitation Status FULL:Full Resuscitation MAR Reviewed: Yes Vital Signs & Weight: Vital Signs (12 hours) Temp Pulse Resp BP Pulse Ox 04/15/18 11:02 98.6 F 75 18 127/60 96 04/15/18 08:23 92 L 04/15/18 08:18 79 19 92 L 04/15/18 08:00 98.9 F 79 19 96 04/15/18 07:25 98.9 F 69 16 138/40 L 91 L 04/15/18 04:00 98.7 F 73 20 99/43 L 98 04/15/18 02:13 70 04/15/18 00:00 97.7 F 71 20 97/44 L 96 04/14/18 23:38 72 04/14/18 23:37 73 18 98 Weight Admit Weight 600 lb Weight 376 lb 1.738 oz Most Recent Monitor Data Heart Rate from ECG 73 NIBP 109/61 NIBP BP-Mean 72 Respiration from ECG 29 SpO2 94 I&O: 04/14/18 04/15/18 04/16/18 06:59 06:59 06:59 Intake Total 1190 1660 Output Total 1450 1600 Balance -260 60 Result Diagrams: 04/14/18 04:35 04/14/18 04:35 EKG Reviewed by me: Yes (nsr) Phys Exam - Physical Examination Constitutional: NAD HEENT: PERRLA, moist MMs, sclera anicteric Neck: no nodes trach+ coarse sound+ Cardiovascular: RRR, no significant murmur, no rub Gastrointestinal: soft, no distention, positive bowel sounds PEG, morbid obesity chronic lymphoedema+ Neurological: moves all 4 limbs Lymphatic: no nodes Psychiatric: normal affect Skin: no rash, normal turgor Dx/Plan (1) Acute respiratory failure with hypoxia and hypercapnia Code(s): J96.01 - ACUTE RESPIRATORY FAILURE WITH HYPOXIA; J96.02 - ACUTE RESPIRATORY FAILURE WITH HYPERCAPNIA Status: Acute Comment: s/p trach/PEG (2) Thrombocytopenia Code(s): D69.6 - THROMBOCYTOPENIA, UNSPECIFIED Status: Acute (3) UTI (urinary tract infection) Status: Acute (4) Anemia, normocytic normochromic Code(s): D64.9 - ANEMIA, UNSPECIFIED Status: Chronic (5) Chronic a-fib Code(s): I48.2 - CHRONIC ATRIAL FIBRILLATION Status: Chronic Comment: on anticoag/Amidarone. Now paroxysmal (6) Chronic diastolic CHF (congestive heart failure), NYHA class 3 Code(s): I50.32 - CHRONIC DIASTOLIC (CONGESTIVE) HEART FAILURE Status: Chronic Comment: Stable. Diuretics initially held 2/2 azotemia. Will be given PRN. (7) Morbid obesity with BMI of 60.0-69.9, adult Code(s): E66.01 - MORBID (SEVERE) OBESITY DUE TO EXCESS CALORIES; Z68.44 - BODY MASS INDEX (BMI) 60.0-69.9, ADULT Status: Chronic (8) NUVIA (obstructive sleep apnea) Code(s): G47.33 - OBSTRUCTIVE SLEEP APNEA (ADULT) (PEDIATRIC) Status: Chronic (9) Physical deconditioning Code(s): R53.81 - OTHER MALAISE Status: Chronic (10) Pickwickian syndrome Code(s): E66.2 - MORBID (SEVERE) OBESITY WITH ALVEOLAR HYPOVENTILATION Status : Chronic Comment: s/p trach collar. - Plan cont current plan of care, continue antibiotics, PT/OT, social staff worker * we are trying to simplify her trach status * continue zyvox * today will hold elliquis * continue PT * eventual plna to discharge home with family support when medically stable and physically stable. * medication reviewed as below * symptomatic treatment Review of Systems - Review of Systems Eyes: negative: Pain, Vision Change, Conjunctivae Inflammation, Eyelid Inflammation, Redness, Other ENT: negative: Ear Pain, Ear Discharge, Nose Pain, Nose Discharge, Nose Congestion, Mouth Pain, Mouth Swelling, Throat Pain, Throat Swelling, Other Respiratory: negative: Cough, Dry, Shortness of Breath, Hemoptysis, SOB with Excertion, Pleuritic Pain, Sputum, Wheezing Cardiovascular: negative: chest pain, palpitations, orthopnea, paroxysmal nocturnal dyspnea, edema, light headedness, other Gastrointestinal: negative: Nausea, Vomiting, Abdominal Pain, Diarrhea, Constipation, Melena, Hematochezia, Other Genitourinary: negative: Dysuria, Frequency, Incontinence, Hematuria, Retention , Other Musculoskeletal: negative: Neck Pain, Shoulder Pain, Arm Pain, Back Pain, Hand Pain, Leg Pain, Foot Pain, Other - Medications/Allergies Allergies/Adverse Reactions: Allergies Allergy/AdvReac Type Severity Reaction Status Date / Time No Known Drug Allergies Allergy Verified 03/08/18 14:16 Medications: Current Medications Acetaminophen (Tylenol Elixir) 1,000 mg PER TUBE Q6H PRN PRN Reason: Headache/Fever or Pain Last Admin: 04/12/18 21:04 Dose: 1,000 mg Al Hydroxide/Mg Hydroxide (Maalox) 15 ml PER TUBE Q4H PRN PRN Reason: Heartburn or Indigestion Albuterol/Ipratropium (Duoneb) 3 ml NEB [id number] [facility] Last Admin: 04/15/18 08:18 Dose: 3 ml Amiodarone HCl (Cordarone) 200 mg PO DAILY [facility] Last Admin: 04/14/18 10:34 Dose: 200 mg Lipase/Protease/Amylase ([place] [id number]) 1 cap FS .PER PROTOCOL PRN PRN Reason: TUBE OCCLUSION PROTOCOL Apixaban (Eliquis) 5 mg PO BID [facility] Last Admin: 04/14/18 20:41 Dose: 5 mg Artificial Tears (Tears Renewed 15ml Bottle) 0 drop EA EYE PRN PRN PRN Reason: Dry Eyes Aspirin (Aspirin Chewable) 81 mg PO DAILY [facility] Last Admin: 04/14/18 10:34 Dose: 81 mg Bupropion HCl (Wellbutrin) 150 mg PER TUBE BID [facility] Last Admin: 04/14/18 20:41 Dose: 150 mg Clonidine (Catapres) 0.1 mg PO Q4H PRN PRN Reason: Systolic BP > 180 Last Admin: 03/20/18 21:05 Dose: 0.1 mg Furosemide (Lasix) 40 mg PER TUBE DAILY-AC [facility] Last Admin: 04/14/18 10:36 Dose: Not Given Guaifenesin (Robitussin Sf) 200 mg PER TUBE Q4H PRN PRN Reason: Cough Hydralazine HCl (Apresoline) 10 mg SLOW IVP Q4H PRN PRN Reason: Systolic BP > 180 Last Admin: 03/14/18 17:06 Dose: 10 mg Linezolid (Zyvox) 600 mg PO BID [facility] Last Admin: 04/14/18 20:41 Dose: 600 mg Loperamide HCl (Imodium) 2 mg PER TUBE PRN PRN PRN Reason: Diarrhea/Loose Stools Losartan Potassium (Cozaar) 12.5 mg PO DAILY [facility] Last Admin: 04/14/18 10:35 Dose: 12.5 mg Magnesium Hydroxide (Milk Of Magnesium) 30 ml PER TUBE DAILYPRN PRN PRN Reason: Constipation Mineral Oil/White Petrolatum (Eucerin Cream) 0 gm TOP BIDPRN PRN PRN Reason: Dry Skin Ondansetron HCl (Zofran Odt) 4 mg PO Q6H PRN PRN Reason: Nausea/Vomiting Last Admin: 04/03/18 09:09 Dose: 4 mg Ondansetron HCl (Zofran) 4 mg IVP Q6H PRN PRN Reason: Nausea/Vomiting Pantoprazole Sodium (Protonix) 40 mg PER TUBE DAILY [facility] Last Admin: 04/14/18 10:36 Dose: 40 mg Phenol (Chloraseptic [place] 180 Ml Bot) 0 ml PO PRN PRN PRN Reason: Sore Throat Potassium Chloride (Klor-Con) 20 meq PO QAM-WM [facility] Last Admin: 04/14/18 10:36 Dose: 20 meq Scopolamine (Transderm Scop) 1.5 mg TD Q3D [facility] Last Admin: 04/14/18 10:32 Dose: 1.5 mg Senna (Senokot) 2 tab PER TUBE HSPRN PRN PRN Reason: Constipation Sodium Bicarbonate (Bicarbonate, Sodium) 650 mg PER TUBE .PER PROTOCOL PRN PRN Reason: ENTERAL TUBE OCCLUSION Sodium Chloride (Flush - Normal Saline) 10 ml IVF Q12HR [facility] Last Admin: 04/14/18 20:42 Dose: 10 ml Sodium Chloride (Flush - Normal Saline) 10 ml IVF PRN PRN PRN Reason: Saline Flush Last Admin: 04/13/18 05:41 Dose: 10 ml Sodium Chloride ([place] Nasal [place] 0.65%) 0 ml EA NARE QIDPRN PRN PRN Reason: Nasal Congestion
[2018-04-15] MEDS: Furosemide 40 MG TAB PER TUBE SCH (12:13)
[2018-04-15] MEDS: Losartan 25 MG TAB PO SCH (12:13)
[2018-04-15] MEDS: Pantoprazole 40 MG GRANULES PACKET PER TUBE SCH (12:13)
[2018-04-15] MEDS: Linezolid 600 MG TAB PO SCH ×2 (12:14→21:20)
[2018-04-15] MEDS: buPROPion 75 MG TAB PER TUBE SCH ×2 (12:14→21:21)
[2018-04-15] MEDS: Amiodarone 200 MG TAB PO SCH (12:14)
--- NOTE | 2018-04-15 12:39 | PRG ---
DATE OF SERVICE: 04/15/2018 SUBJECTIVE: For reasons that are not clear to me, she was put on the ventilator last night. There i s no report of respiratory distress or difficulty. OBJECTIVE: VITAL SIGNS: On exam, temperature is 98.9, pulse 69, respirations 16, O2 sat 91%, blood pressure 113 /40. HEENT: Unremarkable. NECK: No JVD. Trach in good position. LUNGS: Clear. CARDIAC: S1 and S2, regular. ABDOMEN: Obese. EXTREMITIES: No edema. LABORATORY DATA: No labs were done today. ASSESSMENT: No change in condition. PLAN: 1. Tracheostomy was changed out to a 6-0 cuff post trach. If for some reason she would need ventila tion at night, then we would have to do BiPAP instead of a regular mechanical ventilation device. 2. Consult speech therapy for speaking valve. 3. Continue physical therapy.
[2018-04-15] MEDS: Acetaminophen 650 MG/20.3 ML UDCUP PER TUBE PRN (18:35)
[2018-04-16] MEDS: Pantoprazole 40 MG GRANULES PACKET PER TUBE SCH (08:53)
[2018-04-16] MEDS: Linezolid 600 MG TAB PO SCH ×2 (08:54→20:30)
[2018-04-16] MEDS: buPROPion 75 MG TAB PER TUBE SCH ×2 (08:54→20:31)
[2018-04-16] MEDS: Amiodarone 200 MG TAB PO SCH (08:55)
[2018-04-16] MEDS: Losartan 25 MG TAB PO SCH (08:55)
[2018-04-16] MEDS: Furosemide 40 MG TAB PER TUBE SCH (08:55)
[2018-04-16] MEDS ORDERED: guaiFENesin/Dextromethorphan 10 ML UDCUP PER TUBE SCH (09:00)
[2018-04-16] MEDS: Apixaban 5 MG TAB PO SCH ×2 (09:04→20:31)
[2018-04-16] MEDS ORDERED: Guaifenesin DM 100-10/5 ML UDCUP PER TUBE SCH (10:00)
--- NOTE | 2018-04-16 10:21 | PDOC.PN ---
- Subjective Encounter Start Date: 04/16/18 Encounter Start Time: 09:00 Patient seen and examined for nuvia. No new complaints. No overnight events - Objective Resuscitation Status: Resuscitation Status FULL:Full Resuscitation MAR Reviewed: Yes Vital Signs & Weight: Vital Signs (12 hours) Temp Pulse Resp BP Pulse Ox 04/16/18 08:32 100 04/16/18 08:31 71 20 100 04/16/18 07:19 98.3 F 75 21 H 118/48 L 96 04/16/18 04:00 98.1 F 74 18 111/45 L 92 L 04/16/18 00:07 78 22 H 92 L 04/15/18 23:53 98.2 F 73 19 97/44 L 91 L Weight Admit Weight 600 lb Weight 376 lb 1.738 oz Most Recent Monitor Data Heart Rate from ECG 73 NIBP 109/61 NIBP BP-Mean 72 Respiration from ECG 29 SpO2 94 I&O: 04/15/18 04/16/18 04/17/18 06:59 06:59 06:59 Intake Total 1660 1100 Output Total 1600 1175 Balance 60 -75 Result Diagrams: 04/14/18 04:35 04/14/18 04:35 EKG Reviewed by me: Yes (nsr) Phys Exam - Physical Examination Constitutional: NAD HEENT: PERRLA, moist MMs, sclera anicteric Neck: no nodes, supple trach+ Respiratory: no wheezing, no rales, no rhonchi Cardiovascular: RRR, no significant murmur, no rub Gastrointestinal: soft, no distention, positive bowel sounds PEG+ chronic lymphoedema Lymphatic: no nodes Psychiatric: normal affect Skin: no rash, normal turgor Dx/Plan (1) Acute respiratory failure with hypoxia and hypercapnia Code(s): J96.01 - ACUTE RESPIRATORY FAILURE WITH HYPOXIA; J96.02 - ACUTE RESPIRATORY FAILURE WITH HYPERCAPNIA Status: Acute Comment: s/p trach/PEG (2) Thrombocytopenia Code(s): D69.6 - THROMBOCYTOPENIA, UNSPECIFIED Status: Acute (3) UTI (urinary tract infection) Status: Acute (4) Anemia, normocytic normochromic Code(s): D64.9 - ANEMIA, UNSPECIFIED Status: Chronic (5) Chronic a-fib Code(s): I48.2 - CHRONIC ATRIAL FIBRILLATION Status: Chronic Comment: on anticoag/Amidarone. Now paroxysmal (6) Chronic diastolic CHF (congestive heart failure), NYHA class 3 Code(s): I50.32 - CHRONIC DIASTOLIC (CONGESTIVE) HEART FAILURE Status: Chronic Comment: Stable. Diuretics initially held 2/2 azotemia. Will be given PRN. (7) Morbid obesity with BMI of 60.0-69.9, adult Code(s): E66.01 - MORBID (SEVERE) OBESITY DUE TO EXCESS CALORIES; Z68.44 - BODY MASS INDEX (BMI) 60.0-69.9, ADULT Status: Chronic (8) NUVIA (obstructive sleep apnea) Code(s): G47.33 - OBSTRUCTIVE SLEEP APNEA (ADULT) (PEDIATRIC) Status: Chronic (9) Physical deconditioning Code(s): R53.81 - OTHER MALAISE Status: Chronic (10) Pickwickian syndrome Code(s): E66.2 - MORBID (SEVERE) OBESITY WITH ALVEOLAR HYPOVENTILATION Status : Chronic Comment: s/p trach collar. - Plan cont current plan of care, continue antibiotics, PT/OT, social media campaign manager * continue zyvox, oral lasix * PT * continue cpap * tracheostomy care * medication reviewed as below * symptomatic treatment. Review of Systems - Review of Systems Eyes: negative: Pain, Vision Change, Conjunctivae Inflammation, Eyelid Inflammation, Redness, Other ENT: negative: Ear Pain, Ear Discharge, Nose Pain, Nose Discharge, Nose Congestion, Mouth Pain, Mouth Swelling, Throat Pain, Throat Swelling, Other Respiratory: negative: Cough, Dry, Shortness of Breath, Hemoptysis, SOB with Excertion, Pleuritic Pain, Sputum, Wheezing Cardiovascular: negative: chest pain, palpitations, orthopnea, paroxysmal nocturnal dyspnea, edema, light headedness, other Gastrointestinal: negative: Nausea, Vomiting, Abdominal Pain, Diarrhea, Constipation, Melena, Hematochezia, Other Genitourinary: negative: Dysuria, Frequency, Incontinence, Hematuria, Retention , Other Musculoskeletal: negative: Neck Pain, Shoulder Pain, Arm Pain, Back Pain, Hand Pain, Leg Pain, Foot Pain, Other Skin: negative: Rash, Lesions, [place], Bruising, Other - Medications/Allergies Allergies/Adverse Reactions: Allergies Allergy/AdvReac Type Severity Reaction Status Date / Time No Known Drug Allergies Allergy Verified 03/08/18 14:16 Medications: Current Medications Acetaminophen (Tylenol Elixir) 1,000 mg PER TUBE Q6H PRN PRN Reason: Headache/Fever or Pain Last Admin: 04/15/18 18:35 Dose: 1,000 mg Al Hydroxide/Mg Hydroxide (Maalox) 15 ml PER TUBE Q4H PRN PRN Reason: Heartburn or Indigestion Albuterol/Ipratropium (Duoneb) 3 ml NEB [id number] [facility] Last Admin: 04/16/18 08:31 Dose: 3 ml Amiodarone HCl (Cordarone) 200 mg PO DAILY [facility] Last Admin: 04/16/18 08:55 Dose: 200 mg Lipase/Protease/Amylase ([place] [id number]) 1 cap FS .PER PROTOCOL PRN PRN Reason: TUBE OCCLUSION PROTOCOL Apixaban (Eliquis) 5 mg PO BID [facility] Last Admin: 04/16/18 09:04 Dose: 5 mg Artificial Tears (Tears Renewed 15ml Bottle) 0 drop EA EYE PRN PRN PRN Reason: Dry Eyes Aspirin (Aspirin Chewable) 81 mg PO DAILY [facility] Last Admin: 04/16/18 08:54 Dose: 81 mg Bupropion HCl (Wellbutrin) 150 mg PER TUBE BID [facility] Last Admin: 04/16/18 08:54 Dose: 150 mg Clonidine (Catapres) 0.1 mg PO Q4H PRN PRN Reason: Systolic BP > 180 Last Admin: 03/20/18 21:05 Dose: 0.1 mg Furosemide (Lasix) 40 mg PER TUBE DAILY-AC [facility] Last Admin: 04/16/18 08:55 Dose: 40 mg Guaifenesin/Dextromethorphan (Robitussin Dm) 10 ml PER TUBE 0300,0900,1500, 2100 [facility] Guaifenesin/Dextromethorphan (Robitussin Dm) 10 ml PER TUBE 1000 [facility] Stop: 04/16/18 11:00 Hydralazine HCl (Apresoline) 10 mg SLOW IVP Q4H PRN PRN Reason: Systolic BP > 180 Last Admin: 03/14/18 17:06 Dose: 10 mg Linezolid (Zyvox) 600 mg PO BID [facility] Last Admin: 04/16/18 08:54 Dose: 600 mg Loperamide HCl (Imodium) 2 mg PER TUBE PRN PRN PRN Reason: Diarrhea/Loose Stools Losartan Potassium (Cozaar) 12.5 mg PO DAILY [facility] Last Admin: 04/16/18 08:55 Dose: 12.5 mg Magnesium Hydroxide (Milk Of Magnesium) 30 ml PER TUBE DAILYPRN PRN PRN Reason: Constipation Mineral Oil/White Petrolatum (Eucerin Cream) 0 gm TOP BIDPRN PRN PRN Reason: Dry Skin Ondansetron HCl (Zofran Odt) 4 mg PO Q6H PRN PRN Reason: Nausea/Vomiting Last Admin: 04/03/18 09:09 Dose: 4 mg Ondansetron HCl (Zofran) 4 mg IVP Q6H PRN PRN Reason: Nausea/Vomiting Pantoprazole Sodium (Protonix) 40 mg PER TUBE DAILY [facility] Last Admin: 04/16/18 08:53 Dose: 40 mg Phenol (Chloraseptic [place] 180 Ml Bot) 0 ml PO PRN PRN PRN Reason: Sore Throat Potassium Chloride (Klor-Con) 20 meq PO QAM-WM [facility] Last Admin: 04/16/18 08:53 Dose: 20 meq Scopolamine (Transderm Scop) 1.5 mg TD Q3D [facility] Last Admin: 04/14/18 10:32 Dose: 1.5 mg Senna (Senokot) 2 tab PER TUBE HSPRN PRN PRN Reason: Constipation Sodium Bicarbonate (Bicarbonate, Sodium) 650 mg PER TUBE .PER PROTOCOL PRN PRN Reason: ENTERAL TUBE OCCLUSION Sodium Chloride (Flush - Normal Saline) 10 ml IVF Q12HR [facility] Last Admin: 04/16/18 08:55 Dose: 10 ml Sodium Chloride (Flush - Normal Saline) 10 ml IVF PRN PRN PRN Reason: Saline Flush Last Admin: 04/13/18 05:41 Dose: 10 ml Sodium Chloride ([place] Nasal [place] 0.65%) 0 ml EA NARE QIDPRN PRN PRN Reason: Nasal Congestion
--- NOTE | 2018-04-16 10:47 | PRG ---
DATE OF SERVICE: 04/16/2018. SUBJECTIVE: I put her speaking valve on this morning and she is surprisingly very conversant with th at, her voice is low, but she speaks very good [place]. She seems eager to participate in the rehabi litative process and get back to normal. PHYSICAL EXAMINATION: VITAL SIGNS: Temperature is 98.3, pulse 75, respiration 21, O2 sat 96%, blood pressure 118/48. HEENT: Unremarkable. NECK: No JVD. Trachea has some secretions. CARDIAC: S1 and S2 regular. ABDOMEN: Soft. EXTREMITIES: No edema. LABORATORY DATA: She had no labs done today. ASSESSMENT: 1. Obesity hypoventilation syndrome. 2. Status post tracheostomy. 3. Morbid obesity. PLAN: 1. Continue Passy-Charles speaking valve trials. 2. Suction secretions. 3. Continue guaifenesin, think she might be better if that is scheduled.
[2018-04-16] MEDS: Guaifenesin DM 100-10/5 ML UDCUP PER TUBE SCH ×2 (15:24→20:30)
[2018-04-16] MEDS: Acetaminophen 650 MG/20.3 ML UDCUP PER TUBE PRN (20:31)
[2018-04-17] MEDS: Guaifenesin DM 100-10/5 ML UDCUP PER TUBE SCH ×4 (03:51→21:45)
--- NOTE | 2018-04-17 08:30 | PRG ---
DATE OF SERVICE: 04/17/2018. SUBJECTIVE: The patient appears to be doing okay. She is still having problems with secretions. OBJECTIVE: VITAL SIGNS: Temperature is 98.5, pulse 75, respirations 18, O2 sat 95%, blood pressure 114/64. HEENT: Unremarkable. NECK: No JVD. LUNGS: Fairly clear except for the rhonchi radiating from the tracheostomy site. ABDOMEN: Soft, nontender. EXTREMITIES: No edema. LABORATORY DATA: No labs were done today. ASSESSMENT: Stable pulmonary status - problem list unchanged. RECOMMENDATIONS: At some point, she needs to have placement. I am not sure there is ever going to b e an ideal time to discharge the patient. Following with you.
[2018-04-17] MEDS: Losartan 25 MG TAB PO SCH (09:26)
[2018-04-17] MEDS: buPROPion 75 MG TAB PER TUBE SCH ×2 (09:26→21:45)
[2018-04-17] MEDS: Scopolamine 1.5 mg/72 hour Patch TD SCH (09:27)
[2018-04-17] MEDS: Apixaban 5 MG TAB PO SCH ×2 (09:27→21:45)
[2018-04-17] MEDS: Amiodarone 200 MG TAB PO SCH (09:27)
[2018-04-17] MEDS: Linezolid 600 MG TAB PO SCH ×2 (09:27→21:44)
[2018-04-17] MEDS: Pantoprazole 40 MG GRANULES PACKET PER TUBE SCH (09:27)
[2018-04-17] MEDS: Furosemide 40 MG TAB PER TUBE SCH (09:27)
--- NOTE | 2018-04-17 11:25 | PDOC.PN ---
- Subjective Encounter Start Date: 04/17/18 Encounter Start Time: 10:00 Patient seen and examined for nuvia. No new complaints. No overnight events - Objective Resuscitation Status: Resuscitation Status FULL:Full Resuscitation MAR Reviewed: Yes Vital Signs & Weight: Vital Signs (12 hours) Temp Pulse Resp BP Pulse Ox 04/17/18 07:52 98.5 F 75 18 98 04/17/18 07:35 98.5 F 75 18 114/64 95 04/17/18 07:18 94 L 04/17/18 07:13 74 20 94 L 04/17/18 04:35 98.7 F 76 22 H 104/63 94 L 04/17/18 00:29 74 20 94 L 04/16/18 23:40 98.9 F 71 20 91/36 L 97 Weight Admit Weight 600 lb Weight 376 lb 1.738 oz Most Recent Monitor Data Heart Rate from ECG 73 NIBP 109/61 NIBP BP-Mean 72 Respiration from ECG 29 SpO2 94 I&O: 04/16/18 04/17/18 04/18/18 06:59 06:59 06:59 Intake Total 1100 1700 210 Output Total 1175 650 Balance -75 1050 210 Result Diagrams: 04/14/18 04:35 04/14/18 04:35 EKG Reviewed by me: Yes (nsr) Phys Exam - Physical Examination Constitutional: NAD HEENT: PERRLA, moist MMs, sclera anicteric Neck: no JVD, supple trach+ Respiratory: no wheezing, no rales, no rhonchi Cardiovascular: RRR, no significant murmur, no rub Gastrointestinal: soft, non-tender, no distention, positive bowel sounds PEG Musculoskeletal: edema present chronic lymphoedema Neurological: non-focal Lymphatic: no nodes Psychiatric: normal affect, A&O x 3 Skin: no rash, normal turgor Dx/Plan (1) Acute respiratory failure with hypoxia and hypercapnia Code(s): J96.01 - ACUTE RESPIRATORY FAILURE WITH HYPOXIA; J96.02 - ACUTE RESPIRATORY FAILURE WITH HYPERCAPNIA Status: Acute Comment: s/p trach/PEG (2) Thrombocytopenia Code(s): D69.6 - THROMBOCYTOPENIA, UNSPECIFIED Status: Acute (3) UTI (urinary tract infection) Status: Acute (4) Anemia, normocytic normochromic Code(s): D64.9 - ANEMIA, UNSPECIFIED Status: Chronic (5) Chronic a-fib Code(s): I48.2 - CHRONIC ATRIAL FIBRILLATION Status: Chronic Comment: on anticoag/[place]. Now paroxysmal (6) Chronic diastolic CHF (congestive heart failure), NYHA class 3 Code(s): I50.32 - CHRONIC DIASTOLIC (CONGESTIVE) HEART FAILURE Status: Chronic Comment: Stable. Diuretics initially held 2/2 azotemia. Will be given PRN. (7) Morbid obesity with BMI of 60.0-69.9, adult Code(s): E66.01 - MORBID (SEVERE) OBESITY DUE TO EXCESS CALORIES; Z68.44 - BODY MASS INDEX (BMI) 60.0-69.9, ADULT Status: Chronic (8) NUVIA (obstructive sleep apnea) Code(s): G47.33 - OBSTRUCTIVE SLEEP APNEA (ADULT) (PEDIATRIC) Status: Chronic (9) Physical deconditioning Code(s): R53.81 - OTHER MALAISE Status: Chronic (10) Pickwickian syndrome Code(s): E66.2 - MORBID (SEVERE) OBESITY WITH ALVEOLAR HYPOVENTILATION Status : Chronic Comment: s/p trach collar. 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 Review of Systems - Review of Systems Eyes: negative: Pain, Vision Change, Conjunctivae Inflammation, Eyelid Inflammation, Redness, Other ENT: negative: Ear Pain, Ear Discharge, Nose Pain, Nose Discharge, Nose Congestion, Mouth Pain, Mouth Swelling, Throat Pain, Throat Swelling, Other Respiratory: negative: Cough, Dry, Shortness of Breath, Hemoptysis, SOB with Excertion, Pleuritic Pain, Sputum, Wheezing Cardiovascular: negative: chest pain, palpitations, orthopnea, paroxysmal nocturnal dyspnea, edema, light headedness, other Gastrointestinal: negative: Nausea, Vomiting, Abdominal Pain, Diarrhea, Constipation, Melena, Hematochezia, Other Genitourinary: negative: Dysuria, Frequency, Incontinence, Hematuria, Retention , Other Musculoskeletal: negative: Neck Pain, Shoulder Pain, Arm Pain, Back Pain, Hand Pain, Leg Pain, Foot Pain, Other Skin: negative: Rash, Lesions, [place], Bruising, Other - Medications/Allergies Allergies/Adverse Reactions: Allergies Allergy/AdvReac Type Severity Reaction Status Date / Time No Known Drug Allergies Allergy Verified 03/08/18 14:16 Medications: Current Medications Acetaminophen (Tylenol Elixir) 1,000 mg PER TUBE Q6H PRN PRN Reason: Headache/Fever or Pain Last Admin: 04/16/18 20:31 Dose: 1,000 mg Al Hydroxide/Mg Hydroxide (Maalox) 15 ml PER TUBE Q4H PRN PRN Reason: Heartburn or Indigestion Albuterol/Ipratropium (Duoneb) 3 ml NEB [id number] [facility] Last Admin: 04/17/18 07:13 Dose: 3 ml Amiodarone HCl (Cordarone) 200 mg PO DAILY [facility] Last Admin: 04/17/18 09:27 Dose: 200 mg Lipase/Protease/Amylase ([place] [id number]) 1 cap FS .PER PROTOCOL PRN PRN Reason: TUBE OCCLUSION PROTOCOL Apixaban (Eliquis) 5 mg PO BID [facility] Last Admin: 04/17/18 09:27 Dose: 5 mg Artificial Tears (Tears Renewed 15ml Bottle) 0 drop EA EYE PRN PRN PRN Reason: Dry Eyes Aspirin (Aspirin Chewable) 81 mg PO DAILY [facility] Last Admin: 04/17/18 09:26 Dose: 81 mg Bupropion HCl (Wellbutrin) 150 mg PER TUBE BID [facility] Last Admin: 04/17/18 09:26 Dose: 150 mg Clonidine (Catapres) 0.1 mg PO Q4H PRN PRN Reason: Systolic BP > 180 Last Admin: 03/20/18 21:05 Dose: 0.1 mg Furosemide (Lasix) 40 mg PER TUBE DAILY-AC [facility] Last Admin: 04/17/18 09:27 Dose: 40 mg Guaifenesin/Dextromethorphan (Robitussin Dm) 10 ml PER TUBE 0300,0900,1500, 2100 [facility] Last Admin: 04/17/18 09:26 Dose: 10 ml Hydralazine HCl (Apresoline) 10 mg SLOW IVP Q4H PRN PRN Reason: Systolic BP > 180 Last Admin: 03/14/18 17:06 Dose: 10 mg Linezolid (Zyvox) 600 mg PO BID [facility] Last Admin: 04/17/18 09:27 Dose: 600 mg Loperamide HCl (Imodium) 2 mg PER TUBE PRN PRN PRN Reason: Diarrhea/Loose Stools Losartan Potassium (Cozaar) 12.5 mg PO DAILY [facility] Last Admin: 04/17/18 09:26 Dose: 12.5 mg Magnesium Hydroxide (Milk Of Magnesium) 30 ml PER TUBE DAILYPRN PRN PRN Reason: Constipation Mineral Oil/White Petrolatum (Eucerin Cream) 0 gm TOP BIDPRN PRN PRN Reason: Dry Skin Ondansetron HCl (Zofran Odt) 4 mg PO Q6H PRN PRN Reason: Nausea/Vomiting Last Admin: 04/03/18 09:09 Dose: 4 mg Ondansetron HCl (Zofran) 4 mg IVP Q6H PRN PRN Reason: Nausea/Vomiting Pantoprazole Sodium (Protonix) 40 mg PER TUBE DAILY [facility] Last Admin: 04/17/18 09:27 Dose: 40 mg Phenol (Chloraseptic [place] 180 Ml Bot) 0 ml PO PRN PRN PRN Reason: Sore Throat Potassium Chloride (Klor-Con) 20 meq PO QAM-WM [facility] Last Admin: 04/17/18 09:26 Dose: 20 meq Scopolamine (Transderm Scop) 1.5 mg TD Q3D [facility] Last Admin: 04/17/18 09:27 Dose: 1.5 mg Senna (Senokot) 2 tab PER TUBE HSPRN PRN PRN Reason: Constipation Sodium Bicarbonate (Bicarbonate, Sodium) 650 mg PER TUBE .PER PROTOCOL PRN PRN Reason: ENTERAL TUBE OCCLUSION Sodium Chloride (Flush - Normal Saline) 10 ml IVF Q12HR [facility] Last Admin: 04/17/18 09:27 Dose: 10 ml Sodium Chloride (Flush - Normal Saline) 10 ml IVF PRN PRN PRN Reason: Saline Flush Last Admin: 04/13/18 05:41 Dose: 10 ml Sodium Chloride ([place] Nasal [place] 0.65%) 0 ml EA NARE QIDPRN PRN PRN Reason: Nasal Congestion
--- NOTE | 2018-04-17 11:30 | PDOC.PN ---
- Subjective Encounter Start Date: 04/17/18 Encounter Start Time: 09:15 Patient seen and examined for nuvia. No new complaints. No overnight events - Objective Resuscitation Status: Resuscitation Status FULL:Full Resuscitation MAR Reviewed: Yes Vital Signs & Weight: Vital Signs (12 hours) Temp Pulse Resp BP Pulse Ox 04/17/18 11:26 98.6 F 77 18 97/41 L 100 04/17/18 07:52 98.5 F 75 18 98 04/17/18 07:35 98.5 F 75 18 114/64 95 04/17/18 07:18 94 L 04/17/18 07:13 74 20 94 L 04/17/18 04:35 98.7 F 76 22 H 104/63 94 L 04/17/18 00:29 74 20 94 L 04/16/18 23:40 98.9 F 71 20 91/36 L 97 Weight Admit Weight 600 lb Weight 376 lb 1.738 oz Most Recent Monitor Data Heart Rate from ECG 73 NIBP 109/61 NIBP BP-Mean 72 Respiration from ECG 29 SpO2 94 I&O: 04/16/18 04/17/18 04/18/18 06:59 06:59 06:59 Intake Total 1100 1700 210 Output Total 1175 650 Balance -75 1050 210 Result Diagrams: 04/14/18 04:35 04/14/18 04:35 EKG Reviewed by me: Yes (nsr) Phys Exam - Physical Examination Constitutional: NAD HEENT: PERRLA, sclera anicteric tracheostomy coarse breath sound Cardiovascular: RRR, no significant murmur, no rub Gastrointestinal: soft, non-tender, no distention, positive bowel sounds PEG+ chronic lymphoedema Lymphatic: no nodes Psychiatric: normal affect Skin: no rash, normal turgor Dx/Plan (1) Acute respiratory failure with hypoxia and hypercapnia Code(s): J96.01 - ACUTE RESPIRATORY FAILURE WITH HYPOXIA; J96.02 - ACUTE RESPIRATORY FAILURE WITH HYPERCAPNIA Status: Acute Comment: s/p trach/PEG (2) Thrombocytopenia Code(s): D69.6 - THROMBOCYTOPENIA, UNSPECIFIED Status: Acute (3) UTI (urinary tract infection) Status: Acute (4) Anemia, normocytic normochromic Code(s): D64.9 - ANEMIA, UNSPECIFIED Status: Chronic (5) Chronic a-fib Code(s): I48.2 - CHRONIC ATRIAL FIBRILLATION Status: Chronic Comment: on anticoag/[place]. Now paroxysmal (6) Chronic diastolic CHF (congestive heart failure), NYHA class 3 Code(s): I50.32 - CHRONIC DIASTOLIC (CONGESTIVE) HEART FAILURE Status: Chronic Comment: Stable. Diuretics initially held 2/2 azotemia. Will be given PRN. (7) Morbid obesity with BMI of 60.0-69.9, adult Code(s): E66.01 - MORBID (SEVERE) OBESITY DUE TO EXCESS CALORIES; Z68.44 - BODY MASS INDEX (BMI) 60.0-69.9, ADULT Status: Chronic (8) NUVIA (obstructive sleep apnea) Code(s): G47.33 - OBSTRUCTIVE SLEEP APNEA (ADULT) (PEDIATRIC) Status: Chronic (9) Physical deconditioning Code(s): R53.81 - OTHER MALAISE Status: Chronic (10) Pickwickian syndrome Code(s): E66.2 - MORBID (SEVERE) OBESITY WITH ALVEOLAR HYPOVENTILATION Status : Chronic Comment: s/p trach collar. 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 Review of Systems - Review of Systems Eyes: negative: Pain, Vision Change, Conjunctivae Inflammation, Eyelid Inflammation, Redness, Other ENT: negative: Ear Pain, Ear Discharge, Nose Pain, Nose Discharge, Nose Congestion, Mouth Pain, Mouth Swelling, Throat Pain, Throat Swelling, Other Respiratory: negative: Cough, Dry, Shortness of Breath, Hemoptysis, SOB with Excertion, Pleuritic Pain, Sputum, Wheezing Cardiovascular: negative: chest pain, palpitations, orthopnea, paroxysmal nocturnal dyspnea, edema, light headedness, other Gastrointestinal: negative: Nausea, Vomiting, Abdominal Pain, Diarrhea, Constipation, Melena, Hematochezia, Other Genitourinary: negative: Dysuria, Frequency, Incontinence, Hematuria, Retention , Other Musculoskeletal: negative: Neck Pain, Shoulder Pain, Arm Pain, Back Pain, Hand Pain, Leg Pain, Foot Pain, Other Skin: negative: Rash, Lesions, [place], Bruising, Other - Medications/Allergies Allergies/Adverse Reactions: Allergies Allergy/AdvReac Type Severity Reaction Status Date / Time No Known Drug Allergies Allergy Verified 03/08/18 14:16 Medications: Current Medications Acetaminophen (Tylenol Elixir) 1,000 mg PER TUBE Q6H PRN PRN Reason: Headache/Fever or Pain Last Admin: 04/16/18 20:31 Dose: 1,000 mg Al Hydroxide/Mg Hydroxide (Maalox) 15 ml PER TUBE Q4H PRN PRN Reason: Heartburn or Indigestion Albuterol/Ipratropium (Duoneb) 3 ml NEB [id number] [facility] Last Admin: 04/17/18 07:13 Dose: 3 ml Amiodarone HCl (Cordarone) 200 mg PO DAILY [facility] Last Admin: 04/17/18 09:27 Dose: 200 mg Lipase/Protease/Amylase ([place] [id number]) 1 cap FS .PER PROTOCOL PRN PRN Reason: TUBE OCCLUSION PROTOCOL Apixaban (Eliquis) 5 mg PO BID [facility] Last Admin: 04/17/18 09:27 Dose: 5 mg Artificial Tears (Tears Renewed 15ml Bottle) 0 drop EA EYE PRN PRN PRN Reason: Dry Eyes Aspirin (Aspirin Chewable) 81 mg PO DAILY [facility] Last Admin: 04/17/18 09:26 Dose: 81 mg Bupropion HCl (Wellbutrin) 150 mg PER TUBE BID [facility] Last Admin: 04/17/18 09:26 Dose: 150 mg Clonidine (Catapres) 0.1 mg PO Q4H PRN PRN Reason: Systolic BP > 180 Last Admin: 03/20/18 21:05 Dose: 0.1 mg Furosemide (Lasix) 40 mg PER TUBE DAILY-AC [facility] Last Admin: 04/17/18 09:27 Dose: 40 mg Guaifenesin/Dextromethorphan (Robitussin Dm) 10 ml PER TUBE 0300,0900,1500, 2100 [facility] Last Admin: 04/17/18 09:26 Dose: 10 ml Hydralazine HCl (Apresoline) 10 mg SLOW IVP Q4H PRN PRN Reason: Systolic BP > 180 Last Admin: 03/14/18 17:06 Dose: 10 mg Linezolid (Zyvox) 600 mg PO BID [facility] Last Admin: 04/17/18 09:27 Dose: 600 mg Loperamide HCl (Imodium) 2 mg PER TUBE PRN PRN PRN Reason: Diarrhea/Loose Stools Losartan Potassium (Cozaar) 12.5 mg PO DAILY [facility] Last Admin: 04/17/18 09:26 Dose: 12.5 mg Magnesium Hydroxide (Milk Of Magnesium) 30 ml PER TUBE DAILYPRN PRN PRN Reason: Constipation Mineral Oil/White Petrolatum (Eucerin Cream) 0 gm TOP BIDPRN PRN PRN Reason: Dry Skin Ondansetron HCl (Zofran Odt) 4 mg PO Q6H PRN PRN Reason: Nausea/Vomiting Last Admin: 04/03/18 09:09 Dose: 4 mg Ondansetron HCl (Zofran) 4 mg IVP Q6H PRN PRN Reason: Nausea/Vomiting Pantoprazole Sodium (Protonix) 40 mg PER TUBE DAILY [facility] Last Admin: 04/17/18 09:27 Dose: 40 mg Phenol (Chloraseptic [place] 180 Ml Bot) 0 ml PO PRN PRN PRN Reason: Sore Throat Potassium Chloride (Klor-Con) 20 meq PO QAM-WM [facility] Last Admin: 04/17/18 09:26 Dose: 20 meq Scopolamine (Transderm Scop) 1.5 mg TD Q3D [facility] Last Admin: 04/17/18 09:27 Dose: 1.5 mg Senna (Senokot) 2 tab PER TUBE HSPRN PRN PRN Reason: Constipation Sodium Bicarbonate (Bicarbonate, Sodium) 650 mg PER TUBE .PER PROTOCOL PRN PRN Reason: ENTERAL TUBE OCCLUSION Sodium Chloride (Flush - Normal Saline) 10 ml IVF Q12HR [facility] Last Admin: 04/17/18 09:27 Dose: 10 ml Sodium Chloride (Flush - Normal Saline) 10 ml IVF PRN PRN PRN Reason: Saline Flush Last Admin: 04/13/18 05:41 Dose: 10 ml Sodium Chloride ([place] Nasal [place] 0.65%) 0 ml EA NARE QIDPRN PRN PRN Reason: Nasal Congestion
[2018-04-17] MEDS: Nystatin Powder 15 GM BOT TOP SCH (21:45)
[2018-04-18] MEDS: Guaifenesin DM 100-10/5 ML UDCUP PER TUBE SCH ×4 (03:21→20:41)
[2018-04-18] MEDS: buPROPion 75 MG TAB PER TUBE SCH ×2 (10:17→20:41)
[2018-04-18] MEDS: Nystatin Powder 15 GM BOT TOP SCH ×2 (10:17→20:42)
[2018-04-18] MEDS: Losartan 25 MG TAB PO SCH (10:18)
[2018-04-18] MEDS: Amiodarone 200 MG TAB PO SCH (10:18)
[2018-04-18] MEDS: Pantoprazole 40 MG GRANULES PACKET PER TUBE SCH (10:18)
[2018-04-18] MEDS: Apixaban 5 MG TAB PO SCH ×2 (10:18→20:41)
[2018-04-18] MEDS: Furosemide 40 MG TAB PER TUBE SCH (10:18)
[2018-04-18] MEDS: Linezolid 600 MG TAB PO SCH (10:18)
[2018-04-18] MEDS: Acetaminophen 650 MG/20.3 ML UDCUP PER TUBE PRN (10:22)
--- NOTE | 2018-04-18 12:18 | PRG ---
DATE OF SERVICE: 04/18/2018 SUBJECTIVE: The patient is doing about the same. OBJECTIVE: VITAL SIGNS: Temperature 98.2, pulse 71, respiration 20, O2 sat 97%, blood pressure 110/51. HEENT: Unremarkable. NECK: No JVD. Trach in good position. Secretions seen less. CARDIAC: S1 and S2 regular. LUNGS: Clear. ABDOMEN: Soft, obese, nontender. EXTREMITIES: No edema. LABORATORY DATA: Labs were not done today. ASSESSMENT: 1. Obesity hypoventilation syndrome. 2. Chronic respiratory failure - situation appears to be stable. PLAN: 1. Awaiting placement. 2. Continue strengthening therapy. 3. Trial of oral liquids. 4. Discontinue Zyvox as she has had over 7 days of that.
--- NOTE | 2018-04-18 12:21 | PDOC.PN ---
- Subjective Encounter Start Date: 04/18/18 Encounter Start Time: 11:00 Subjective: awake, talking via speaking valve -: on trach collar - Objective Resuscitation Status: Resuscitation Status FULL:Full Resuscitation MAR Reviewed: Yes Vital Signs & Weight: Vital Signs (12 hours) Temp Pulse Resp BP Pulse Ox 04/18/18 11:40 98.1 F 67 22 H 118/86 93 L 04/18/18 10:38 94 L 04/18/18 10:36 68 18 04/18/18 07:48 98.2 F 71 20 97 04/18/18 07:34 98.2 F 71 20 110/51 L 92 L 04/18/18 03:57 98.7 F 76 20 106/47 L 92 L 04/18/18 02:29 75 20 91 L 04/18/18 02:07 71 18 115/51 L 91 L Weight Admit Weight 600 lb Weight 376 lb 1.738 oz Most Recent Monitor Data Heart Rate from ECG 73 NIBP 109/61 NIBP BP-Mean 72 Respiration from ECG 29 SpO2 94 I&O: 04/17/18 04/18/18 04/19/18 06:59 06:59 06:59 Intake Total 1700 1720 210 Output Total 650 1825 Balance 1050 -105 210 Result Diagrams: 04/14/18 04:35 04/14/18 04:35 Phys Exam - Physical Examination HEENT: PERRLA, sclera anicteric Neck: supple trach+ Respiratory: no wheezing, no rales Cardiovascular: RRR, no significant murmur Gastrointestinal: soft, non-tender, positive bowel sounds peg+ Musculoskeletal: pulses present, edema present Neurological: non-focal, moves all 4 limbs Psychiatric: A&O x 3 Dx/Plan (1) Acute and chronic respiratory failure Code(s): J96.20 - ACUTE AND CHR RESP FAILURE, UNSP W HYPOXIA OR HYPERCAPNIA Status: Chronic Qualifiers: Respiratory failure complication: hypoxia and hypercapnia Qualified Code(s) : J96.21 - Acute and chronic respiratory failure with hypoxia; J96.22 - Acute and chronic respiratory failure with hypercapnia; J96.22 - Acute and chronic respiratory failure with hypercapnia; J96.22 - Acute and chronic respiratory failure with hypercapnia Comment: Stable on trach collar now. (2) CAROL (obstructive sleep apnea) Code(s): G47.33 - OBSTRUCTIVE SLEEP APNEA (ADULT) (PEDIATRIC) Status: Chronic (3) Afib Code(s): I48.91 - UNSPECIFIED ATRIAL FIBRILLATION Status: Deleted Qualifiers: Atrial fibrillation type: paroxysmal Qualified Code(s): I48.0 - Paroxysmal atrial fibrillation Comment: Rate controlled. Continue Eliquis, ASA and Amiodarone. (4) Acute on chronic diastolic (congestive) heart failure Code(s): I50.33 - ACUTE ON CHRONIC DIASTOLIC (CONGESTIVE) HEART FAILURE Status : Chronic (5) Pickwickian syndrome Code(s): E66.2 - MORBID (SEVERE) OBESITY WITH ALVEOLAR HYPOVENTILATION Status : Chronic Comment: s/p trach collar. (6) Status post tracheostomy Code(s): Z93.0 - TRACHEOSTOMY STATUS Status: Deleted Comment: Had procedure on 03/09/18. Stable. (7) S/P percutaneous endoscopic gastrostomy (PEG) tube placement Code(s): Z93.1 - GASTROSTOMY STATUS Status: Deleted Comment: Had procedure on 03/09/18. Stable. - Plan deconditioning -: is stable on trach collar -: cm to d/w family if they can take care of her at home -: on asp, eliquis, amiod, lasix and cozaar -: off zyvox, continue welbutrin * . Review of Systems - Medications/Allergies Allergies/Adverse Reactions: Allergies Allergy/AdvReac Type Severity Reaction Status Date / Time No Known Drug Allergies Allergy Verified 03/08/18 14:16 Medications: Current Medications Acetaminophen (Tylenol Elixir) 1,000 mg PER TUBE Q6H PRN PRN Reason: Headache/Fever or Pain Last Admin: 04/18/18 10:22 Dose: 1,000 mg Al Hydroxide/Mg Hydroxide (Maalox) 15 ml PER TUBE Q4H PRN PRN Reason: Heartburn or Indigestion Albuterol/Ipratropium (Duoneb) 3 ml NEB [id number] [facility] Last Admin: 04/18/18 10:36 Dose: 3 ml Amiodarone HCl (Cordarone) 200 mg PO DAILY [facility] Last Admin: 04/18/18 10:18 Dose: 200 mg Lipase/Protease/Amylase ([place] [id number]) 1 cap FS .PER PROTOCOL PRN PRN Reason: TUBE OCCLUSION PROTOCOL Apixaban (Eliquis) 5 mg PO BID [facility] Last Admin: 04/18/18 10:18 Dose: 5 mg Artificial Tears (Tears Renewed 15ml Bottle) 0 drop EA EYE PRN PRN PRN Reason: Dry Eyes Aspirin (Aspirin Chewable) 81 mg PO DAILY [facility] Last Admin: 04/18/18 10:17 Dose: 81 mg Bupropion HCl (Wellbutrin) 150 mg PER TUBE BID [facility] Last Admin: 04/18/18 10:17 Dose: 150 mg Clonidine (Catapres) 0.1 mg PO Q4H PRN PRN Reason: Systolic BP > 180 Last Admin: 03/20/18 21:05 Dose: 0.1 mg Furosemide (Lasix) 40 mg PER TUBE DAILY-AC [facility] Last Admin: 04/18/18 10:18 Dose: 40 mg Guaifenesin/Dextromethorphan (Robitussin Dm) 10 ml PER TUBE 0300,0900,1500, 2100 [facility] Last Admin: 04/18/18 10:17 Dose: 10 ml Hydralazine HCl (Apresoline) 10 mg SLOW IVP Q4H PRN PRN Reason: Systolic BP > 180 Last Admin: 03/14/18 17:06 Dose: 10 mg Loperamide HCl (Imodium) 2 mg PER TUBE PRN PRN PRN Reason: Diarrhea/Loose Stools Losartan Potassium (Cozaar) 12.5 mg PO DAILY [facility] Last Admin: 04/18/18 10:18 Dose: 12.5 mg Magnesium Hydroxide (Milk Of Magnesium) 30 ml PER TUBE DAILYPRN PRN PRN Reason: Constipation Mineral Oil/White Petrolatum (Eucerin Cream) 0 gm TOP BIDPRN PRN PRN Reason: Dry Skin Nystatin (Mycostatin Powder) 30 gm TOP BID [facility] Last Admin: 04/18/18 10:17 Dose: 1 applic Ondansetron HCl (Zofran Odt) 4 mg PO Q6H PRN PRN Reason: Nausea/Vomiting Last Admin: 04/03/18 09:09 Dose: 4 mg Ondansetron HCl (Zofran) 4 mg IVP Q6H PRN PRN Reason: Nausea/Vomiting Pantoprazole Sodium (Protonix) 40 mg PER TUBE DAILY [facility] Last Admin: 04/18/18 10:18 Dose: 40 mg Phenol (Chloraseptic [place] 180 Ml Bot) 0 ml PO PRN PRN PRN Reason: Sore Throat Potassium Chloride (Klor-Con) 20 meq PO QAM-WM [facility] Last Admin: 04/18/18 10:17 Dose: 20 meq Scopolamine (Transderm Scop) 1.5 mg TD Q3D [facility] Last Admin: 04/17/18 09:27 Dose: 1.5 mg Senna (Senokot) 2 tab PER TUBE HSPRN PRN PRN Reason: Constipation Sodium Bicarbonate (Bicarbonate, Sodium) 650 mg PER TUBE .PER PROTOCOL PRN PRN Reason: ENTERAL TUBE OCCLUSION Sodium Chloride (Flush - Normal Saline) 10 ml IVF Q12HR [facility] Last Admin: 04/18/18 10:19 Dose: 10 ml Sodium Chloride (Flush - Normal Saline) 10 ml IVF PRN PRN PRN Reason: Saline Flush Last Admin: 04/13/18 05:41 Dose: 10 ml Sodium Chloride ([place] Nasal [place] 0.65%) 0 ml EA NARE QIDPRN PRN PRN Reason: Nasal Congestion
--- NOTE | 2018-04-18 18:03 | EKG ---
Test Reason : DYSPNEA Blood Pressure : / mmHG Vent. Rate : 091 BPM Atrial Rate : 091 BPM P-R Int : 142 ms QRS Dur : 126 ms QT Int : 388 ms P-R-T Axes : 069 088 082 degrees QTc Int : 477 ms Normal sinus rhythm Right bundle branch block Abnormal ECG Confirmed by HERIBERTO ZAMARRIPA, EJ ([id number]), supervising editor trailer RODOLFO DEL A TORRE ([id number]) on 04/18/2018 6:02:44 PM Referred By: Confirmed By:EJ LOUIS MD
[2018-04-19] MEDS: Guaifenesin DM 100-10/5 ML UDCUP PER TUBE SCH ×4 (04:33→21:00)
[2018-04-19] MEDS: Losartan 25 MG TAB PO SCH (09:13)
[2018-04-19] MEDS: Amiodarone 200 MG TAB PO SCH (09:14)
[2018-04-19] MEDS: Furosemide 40 MG TAB PER TUBE SCH (09:14)
[2018-04-19] MEDS: buPROPion 75 MG TAB PER TUBE SCH ×2 (09:14→21:00)
[2018-04-19] MEDS: Apixaban 5 MG TAB PO SCH ×2 (09:15→21:00)
[2018-04-19] MEDS: Pantoprazole 40 MG GRANULES PACKET PER TUBE SCH (09:15)
[2018-04-19] MEDS: Nystatin Powder 15 GM BOT TOP SCH ×2 (09:16→21:01)
--- NOTE | 2018-04-19 10:43 | PDOC.PN ---
- Subjective Encounter Start Date: 04/19/18 Encounter Start Time: 10:30 Subjective: is sitting in bed, trying to work with PT this am - Objective Resuscitation Status: Resuscitation Status FULL:Full Resuscitation MAR Reviewed: Yes Vital Signs & Weight: Vital Signs (12 hours) Temp Pulse Resp BP Pulse Ox 04/19/18 08:19 67 18 96 04/19/18 08:00 98.5 F 67 18 96 04/19/18 07:41 98.5 F 72 19 100/42 L 100 04/19/18 03:55 97.7 F 69 18 115/47 L 94 L 04/19/18 00:37 67 16 91 L 04/19/18 00:00 98.6 F 67 16 121/49 L 95 Weight Admit Weight 600 lb Weight 376 lb 1.738 oz Most Recent Monitor Data Heart Rate from ECG 73 NIBP 109/61 NIBP BP-Mean 72 Respiration from ECG 29 SpO2 94 I&O: 04/18/18 04/19/18 04/20/18 06:59 06:59 06:59 Intake Total 1720 780 420 Output Total 1825 950 Balance -105 -170 420 Result Diagrams: 04/14/18 04:35 04/14/18 04:35 Phys Exam - Physical Examination HEENT: PERRLA, sclera anicteric Neck: no JVD trach+ Respiratory: no wheezing, no rales rhonchi+ Cardiovascular: RRR, no significant murmur Gastrointestinal: soft, non-tender, positive bowel sounds Musculoskeletal: pulses present, edema present Neurological: non-focal, moves all 4 limbs Psychiatric: A&O x 3 Dx/Plan (1) Acute and chronic respiratory failure Code(s): J96.20 - ACUTE AND CHR RESP FAILURE, UNSP W HYPOXIA OR HYPERCAPNIA Status: Chronic Qualifiers: Respiratory failure complication: hypoxia and hypercapnia Qualified Code(s) : J96.21 - Acute and chronic respiratory failure with hypoxia; J96.22 - Acute and chronic respiratory failure with hypercapnia; J96.22 - Acute and chronic respiratory failure with hypercapnia; J96.22 - Acute and chronic respiratory failure with hypercapnia Comment: Stable on trach collar now. (2) CAROL (obstructive sleep apnea) Code(s): G47.33 - OBSTRUCTIVE SLEEP APNEA (ADULT) (PEDIATRIC) Status: Chronic (3) Afib Code(s): I48.91 - UNSPECIFIED ATRIAL FIBRILLATION Status: Deleted Qualifiers: Atrial fibrillation type: paroxysmal Qualified Code(s): I48.0 - Paroxysmal atrial fibrillation Comment: Rate controlled. Continue Eliquis, ASA and Amiodarone. (4) Acute on chronic diastolic (congestive) heart failure Code(s): I50.33 - ACUTE ON CHRONIC DIASTOLIC (CONGESTIVE) HEART FAILURE Status : Chronic (5) Pickwickian syndrome Code(s): E66.2 - MORBID (SEVERE) OBESITY WITH ALVEOLAR HYPOVENTILATION Status : Chronic Comment: s/p trach collar. (6) Status post tracheostomy Code(s): Z93.0 - TRACHEOSTOMY STATUS Status: Deleted Comment: Had procedure on 03/09/18. Stable. (7) S/P percutaneous endoscopic gastrostomy (PEG) tube placement Code(s): Z93.1 - GASTROSTOMY STATUS Status: Deleted Comment: Had procedure on 03/09/18. Stable. - Plan hemostable -: may tx to med floor if ok with pulm service -: code status will be revisited some time today -: continue eliquis, amiod, cozaar and lasix -: staff to start training family with reg trach and peg care * . Review of Systems - Medications/Allergies Allergies/Adverse Reactions: Allergies Allergy/AdvReac Type Severity Reaction Status Date / Time No Known Drug Allergies Allergy Verified 03/08/18 14:16 Medications: Current Medications Acetaminophen (Tylenol Elixir) 1,000 mg PER TUBE Q6H PRN PRN Reason: Headache/Fever or Pain Last Admin: 04/18/18 10:22 Dose: 1,000 mg Al Hydroxide/Mg Hydroxide (Maalox) 15 ml PER TUBE Q4H PRN PRN Reason: Heartburn or Indigestion Albuterol/Ipratropium (Duoneb) 3 ml NEB [id number] HEIKE Last Admin: 04/19/18 08:19 Dose: 3 ml Amiodarone HCl (Cordarone) 200 mg PO DAILY [facility] Last Admin: 04/19/18 09:14 Dose: 200 mg Lipase/Protease/[place]ylase ([place] [id number]) 1 cap FS .PER PROTOCOL PRN PRN Reason: TUBE OCCLUSION PROTOCOL Apixaban (Eliquis) 5 mg PO BID [facility] Last Admin: 04/19/18 09:15 Dose: 5 mg Artificial Tears (Tears Renewed 15ml Bottle) 0 drop EA EYE PRN PRN PRN Reason: Dry Eyes Aspirin (Aspirin Chewable) 81 mg PO DAILY [facility] Last Admin: 04/19/18 09:14 Dose: 81 mg Bupropion HCl (Wellbutrin) 150 mg PER TUBE BID [facility] Last Admin: 04/19/18 09:14 Dose: 150 mg Clonidine (Catapres) 0.1 mg PO Q4H PRN PRN Reason: Systolic BP > 180 Last Admin: 03/20/18 21:05 Dose: 0.1 mg Furosemide (Lasix) 40 mg PER TUBE DAILY-AC [facility] Last Admin: 04/19/18 09:14 Dose: 40 mg Guaifenesin/Dextromethorphan (Robitussin Dm) 10 ml PER TUBE 0300,0900,1500, 2100 [facility] Last Admin: 04/19/18 09:13 Dose: 10 ml Hydralazine HCl (Apresoline) 10 mg SLOW IVP Q4H PRN PRN Reason: Systolic BP > 180 Last Admin: 03/14/18 17:06 Dose: 10 mg Loperamide HCl (Imodium) 2 mg PER TUBE PRN PRN PRN Reason: Diarrhea/Loose Stools Losartan Potassium (Cozaar) 12.5 mg PO DAILY [facility] Last Admin: 04/19/18 09:13 Dose: Not Given Magnesium Hydroxide (Milk Of Magnesium) 30 ml PER TUBE DAILYPRN PRN PRN Reason: Constipation Mineral Oil/White Petrolatum (Eucerin Cream) 0 gm TOP BIDPRN PRN PRN Reason: Dry Skin Nystatin (Mycostatin Powder) 30 gm TOP BID [facility] Last Admin: 04/19/18 09:16 Dose: 1 applic Ondansetron HCl (Zofran Odt) 4 mg PO Q6H PRN PRN Reason: Nausea/Vomiting Last Admin: 04/03/18 09:09 Dose: 4 mg Ondansetron HCl (Zofran) 4 mg IVP Q6H PRN PRN Reason: Nausea/Vomiting Pantoprazole Sodium (Protonix) 40 mg PER TUBE DAILY [facility] Last Admin: 04/19/18 09:15 Dose: 40 mg Phenol (Chloraseptic [place] 180 Ml Bot) 0 ml PO PRN PRN PRN Reason: Sore Throat Potassium Chloride (Klor-Con) 20 meq PO QAM-WM [facility] Last Admin: 04/19/18 09:14 Dose: 20 meq Scopolamine (Transderm Scop) 1.5 mg TD Q3D [facility] Last Admin: 04/17/18 09:27 Dose: 1.5 mg Senna (Senokot) 2 tab PER TUBE HSPRN PRN PRN Reason: Constipation Sodium Bicarbonate (Bicarbonate, Sodium) 650 mg PER TUBE .PER PROTOCOL PRN PRN Reason: ENTERAL TUBE OCCLUSION Sodium Chloride (Flush - Normal Saline) 10 ml IVF Q12HR [facility] Last Admin: 04/19/18 09:15 Dose: 10 ml Sodium Chloride (Flush - Normal Saline) 10 ml IVF PRN PRN PRN Reason: Saline Flush Last Admin: 04/13/18 05:41 Dose: 10 ml Sodium Chloride ([place] Nasal [place] 0.65%) 0 ml EA NARE QIDPRN PRN PRN Reason: Nasal Congestion
--- NOTE | 2018-04-19 12:18 | PRG ---
DATE OF SERVICE: 04/19/2018 SUBJECTIVE: The patient is doing okay. Her sons are visiting her today. I got an opportunity to ta lk to all of them. OBJECTIVE: VITAL SIGNS: Temperature is 98.0, pulse 67, respiration 18, O2 sat 98%, blood pressure 122/53. HEENT: Unremarkable. Trach in good position. LUNGS: Clear. CARDIAC: S1 and S2 regular. ABDOMEN: Soft. EXTREMITIES: No edema. ASSESSMENT: No change in status. PLAN: Emphasize rehabilitation. The main issue is being able to transfer from bed to chair, etc.
[2018-04-20] MEDS: Guaifenesin DM 100-10/5 ML UDCUP PER TUBE SCH ×4 (04:04→20:24)
[2018-04-20] MEDS: Losartan 25 MG TAB PO SCH (08:30)
[2018-04-20] MEDS: Amiodarone 200 MG TAB PO SCH (08:31)
[2018-04-20] MEDS: Pantoprazole 40 MG GRANULES PACKET PER TUBE SCH (08:31)
[2018-04-20] MEDS: Furosemide 40 MG TAB PER TUBE SCH (08:32)
[2018-04-20] MEDS: Apixaban 5 MG TAB PO SCH ×2 (08:32→20:23)
[2018-04-20] MEDS: buPROPion 75 MG TAB PER TUBE SCH ×2 (08:32→20:24)
[2018-04-20] MEDS: Nystatin Powder 15 GM BOT TOP SCH ×2 (08:33→20:26)
--- NOTE | 2018-04-20 09:08 | PRG ---
DATE OF SERVICE: 04/20/2018 The patient is doing well. PHYSICAL EXAMINATION: VITAL SIGNS: Temperature is 98.1, pulse 80, respirations 18, O2 sat 92%, blood pressure 125/61. HEENT: Unremarkable. NECK: No JVD. Trach in good position. LUNGS: Clear. CARDIAC: S1 and S2 regular. ABDOMEN: Soft. EXTREMITIES: Trace edema. ASSESSMENT: 1. Obesity hypoventilation syndrome. 2. Status post chronic respiratory failure requiring trach. RECOMMENDATIONS: This is really a rehabilitation issue at this point. I am discouraged that the sta ff is not getting the patient up into a chair. She needs to learn how to manage transfers before she is allowed to go home.
[2018-04-20] MEDS: Scopolamine 1.5 mg/72 hour Patch TD SCH (09:09)
[2018-04-20] MEDS: Acetaminophen 650 MG/20.3 ML UDCUP PER TUBE PRN (09:11)
--- NOTE | 2018-04-20 10:48 | PDOC.PN ---
- Subjective Encounter Start Date: 04/20/18 Encounter Start Time: 09:15 Subjective: on trach collar -: no sob, not wearing her speaking valve this am - Objective Resuscitation Status: Resuscitation Status FULL:Full Resuscitation MAR Reviewed: Yes Vital Signs & Weight: Vital Signs (12 hours) Temp Pulse Resp BP Pulse Ox 04/20/18 08:09 92 L 04/20/18 08:08 70 18 92 L 04/20/18 07:42 98.1 F 74 18 125/61 91 L 04/20/18 07:24 99.3 F 77 19 91 L 04/20/18 04:05 99.3 F 77 19 133/58 L 92 L 04/20/18 00:18 75 20 91 L 04/19/18 23:56 98.6 F 74 19 118/45 L 95 Weight Admit Weight 600 lb Weight 342 lb 6.4 oz Most Recent Monitor Data Heart Rate from ECG 73 NIBP 109/61 NIBP BP-Mean 72 Respiration from ECG 29 SpO2 94 I&O: 04/19/18 04/20/18 04/21/18 06:59 06:59 06:59 Intake Total 780 2040 390 Output Total 950 1300 Balance -170 740 390 Result Diagrams: 04/14/18 04:35 04/14/18 04:35 Phys Exam - Physical Examination HEENT: PERRLA, sclera anicteric Neck: no JVD trach+ Respiratory: no wheezing, no rales Cardiovascular: RRR, no significant murmur Gastrointestinal: soft, non-tender, positive bowel sounds peg+ Musculoskeletal: pulses present, edema present Neurological: non-focal, moves all 4 limbs Psychiatric: A&O x 3 Dx/Plan (1) Acute and chronic respiratory failure Code(s): J96.20 - ACUTE AND CHR RESP FAILURE, UNSP W HYPOXIA OR HYPERCAPNIA Status: Chronic Qualifiers: Respiratory failure complication: hypoxia and hypercapnia Qualified Code(s) : J96.21 - Acute and chronic respiratory failure with hypoxia; J96.22 - Acute and chronic respiratory failure with hypercapnia; J96.22 - Acute and chronic respiratory failure with hypercapnia; J96.22 - Acute and chronic respiratory failure with hypercapnia Comment: Stable on trach collar now. (2) CAROL (obstructive sleep apnea) Code(s): G47.33 - OBSTRUCTIVE SLEEP APNEA (ADULT) (PEDIATRIC) Status: Chronic (3) Afib Code(s): I48.91 - UNSPECIFIED ATRIAL FIBRILLATION Status: Deleted Qualifiers: Atrial fibrillation type: paroxysmal Qualified Code(s): I48.0 - Paroxysmal atrial fibrillation Comment: Rate controlled. Continue Eliquis, ASA and Amiodarone. (4) Acute on chronic diastolic (congestive) heart failure Code(s): I50.33 - ACUTE ON CHRONIC DIASTOLIC (CONGESTIVE) HEART FAILURE Status : Chronic (5) Pickwickian syndrome Code(s): E66.2 - MORBID (SEVERE) OBESITY WITH ALVEOLAR HYPOVENTILATION Status : Chronic Comment: s/p trach collar. (6) Status post tracheostomy Code(s): Z93.0 - TRACHEOSTOMY STATUS Status: Deleted Comment: Had procedure on 03/09/18. Stable. (7) S/P percutaneous endoscopic gastrostomy (PEG) tube placement Code(s): Z93.1 - GASTROSTOMY STATUS Status: Deleted Comment: Had procedure on 03/09/18. Stable. (8) Severe muscle deconditioning Code(s): R29.898 - OT SYMPTOMS AND SIGNS INVOLVING THE MUSCULOSKELETAL SYSTEM Status: Acute - Plan PT/OT to mobilize more -: on eliquis, amiod, nebs, asp, lasix -: wellbutrin -: dc plan home when able to learn transfers to wheel chair * . Review of Systems - Medications/Allergies Allergies/Adverse Reactions: Allergies Allergy/AdvReac Type Severity Reaction Status Date / Time No Known Drug Allergies Allergy Verified 03/08/18 14:16 Medications: Current Medications Acetaminophen (Tylenol Elixir) 1,000 mg PER TUBE Q6H PRN PRN Reason: Headache/Fever or Pain Last Admin: 04/20/18 09:11 Dose: 1,000 mg Al Hydroxide/Mg Hydroxide (Maalox) 15 ml PER TUBE Q4H PRN PRN Reason: Heartburn or Indigestion Albuterol/Ipratropium (Duoneb) 3 ml NEB [id number] HEIKE Last Admin: 04/20/18 08:08 Dose: 3 ml Amiodarone HCl (Cordarone) 200 mg PO DAILY [facility] Last Admin: 04/20/18 08:31 Dose: 200 mg Lipase/Protease/Amylase ([place] [id number]) 1 cap FS .PER PROTOCOL PRN PRN Reason: TUBE OCCLUSION PROTOCOL Apixaban (Eliquis) 5 mg PO BID [facility] Last Admin: 04/20/18 08:32 Dose: 5 mg Artificial Tears (Tears Renewed 15ml Bottle) 0 drop EA EYE PRN PRN PRN Reason: Dry Eyes Aspirin (Aspirin Chewable) 81 mg PO DAILY [facility] Last Admin: 04/20/18 08:31 Dose: 81 mg Bupropion HCl (Wellbutrin) 150 mg PER TUBE BID [facility] Last Admin: 04/20/18 08:32 Dose: 150 mg Clonidine (Catapres) 0.1 mg PO Q4H PRN PRN Reason: Systolic BP > 180 Last Admin: 03/20/18 21:05 Dose: 0.1 mg Furosemide (Lasix) 40 mg PER TUBE DAILY-[facility] Last Admin: 04/20/18 08:32 Dose: 40 mg Guaifenesin/Dextromethorphan (Robitussin Dm) 10 ml PER TUBE 0300,0900,1500, 2100 [facility] Last Admin: 04/20/18 08:31 Dose: 10 ml Hydralazine HCl (Apresoline) 10 mg SLOW IVP Q4H PRN PRN Reason: Systolic BP > 180 Last Admin: 03/14/18 17:06 Dose: 10 mg Loperamide HCl (Imodium) 2 mg PER TUBE PRN PRN PRN Reason: Diarrhea/Loose Stools Losartan Potassium (Cozaar) 12.5 mg PO DAILY [facility] Last Admin: 04/20/18 08:30 Dose: Not Given Magnesium Hydroxide (Milk Of Magnesium) 30 ml PER TUBE DAILYPRN PRN PRN Reason: Constipation Mineral Oil/White Petrolatum (Eucerin Cream) 0 gm TOP BIDPRN PRN PRN Reason: Dry Skin Nystatin (Mycostatin Powder) 30 gm TOP BID [facility] Last Admin: 04/20/18 08:33 Dose: 1 applic Ondansetron HCl (Zofran Odt) 4 mg PO Q6H PRN PRN Reason: Nausea/Vomiting Last Admin: 04/03/18 09:09 Dose: 4 mg Ondansetron HCl (Zofran) 4 mg IVP Q6H PRN PRN Reason: Nausea/Vomiting Pantoprazole Sodium (Protonix) 40 mg PER TUBE DAILY [facility] Last Admin: 04/20/18 08:31 Dose: 40 mg Phenol (Chloraseptic [place] 180 Ml Bot) 0 ml PO PRN PRN PRN Reason: Sore Throat Potassium Chloride (Klor-Con) 20 meq PO QAM-WM [facility] Last Admin: 04/20/18 08:31 Dose: 20 meq Scopolamine (Transderm Scop) 1.5 mg TD Q3D [facility] Last Admin: 04/20/18 09:09 Dose: 1.5 mg Senna (Senokot) 2 tab PER TUBE HSPRN PRN PRN Reason: Constipation Sodium Bicarbonate (Bicarbonate, Sodium) 650 mg PER TUBE .PER PROTOCOL PRN PRN Reason: ENTERAL TUBE OCCLUSION Sodium Chloride (Flush - Normal Saline) 10 ml IVF Q12HR [facility] Last Admin: 04/20/18 08:32 Dose: 10 ml Sodium Chloride (Flush - Normal Saline) 10 ml IVF PRN PRN PRN Reason: Saline Flush Last Admin: 04/13/18 05:41 Dose: 10 ml Sodium Chloride ([place] Nasal [place] 0.65%) 0 ml EA NARE QIDPRN PRN PRN Reason: Nasal Congestion
[2018-04-21] MEDS: Guaifenesin DM 100-10/5 ML UDCUP PER TUBE SCH ×4 (03:39→21:16)
[2018-04-21 04:24] LABS: Hemoglobin 10.4 g/dL (12.0-16.0); Platelet Count 88 thou/uL (130-400)
--- NOTE | 2018-04-21 08:02 | PRG ---
DATE OF SERVICE: 04/21/2018 The patient is doing okay. I am not sure she made much progress in terms of physical therapy yesterd ay. PHYSICAL EXAMINATION: VITAL SIGNS: Temperature 97.5, pulse 84, respirations 19, O2 sat 93%, blood pressure 114/55. 24 shameka r intake 1340, output 1100. Weight 342 pounds. HEENT: Unremarkable. NECK: No JVD. LUNGS: Fairly clear. CARDIAC: S1 and S2 regular. ABDOMEN: Soft. EXTREMITIES: Trace edema. LABORATORY DATA: Hematocrit 34, platelet count 88. ASSESSMENT: No overt changes in clinical status. PLAN: 1. Need to focus on physical therapy. 2. Watch platelet count closely given thrombocytopenia and patient being on concurrent anticoagulati on.
[2018-04-21] MEDS: Apixaban 5 MG TAB PO SCH ×2 (10:57→21:16)
[2018-04-21] MEDS: Furosemide 40 MG TAB PER TUBE SCH (10:57)
[2018-04-21] MEDS: Amiodarone 200 MG TAB PO SCH (10:57)
[2018-04-21] MEDS: Pantoprazole 40 MG GRANULES PACKET PER TUBE SCH (10:57)
[2018-04-21] MEDS: buPROPion 75 MG TAB PER TUBE SCH ×2 (10:58→21:16)
[2018-04-21] MEDS: Nystatin Powder 15 GM BOT TOP SCH ×2 (10:59→21:17)
[2018-04-21] MEDS: Losartan 25 MG TAB PO SCH (11:47)
--- NOTE | 2018-04-21 11:54 | PDOC.PN ---
- Subjective Encounter Start Date: 04/21/18 Encounter Start Time: 10:00 Subjective: awake, no sob, follows verbal stimuli - Objective Resuscitation Status: Resuscitation Status FULL:Full Resuscitation MAR Reviewed: Yes Vital Signs & Weight: Vital Signs (12 hours) Temp Pulse Resp BP Pulse Ox 04/21/18 11:02 98.9 F 73 20 126/54 L 93 L 04/21/18 08:00 98.9 F 73 20 96 04/21/18 07:43 97.5 F L 74 19 114/55 L 93 L 04/21/18 07:29 77 18 91 L 04/21/18 04:00 98.8 F 73 16 100/52 L 87 L 04/21/18 03:14 89 L 04/21/18 00:00 98.6 F 73 20 119/49 L 89 L Weight Admit Weight 600 lb Weight 342 lb 1.6 oz Most Recent Monitor Data Heart Rate from ECG 73 NIBP 109/61 NIBP BP-Mean 72 Respiration from ECG 29 SpO2 94 I&O: 04/20/18 04/21/18 04/22/18 06:59 06:59 06:59 Intake Total 2040 1340 Output Total 1300 1100 Balance 740 240 Result Diagrams: 04/21/18 04:04 04/21/18 04:04 Phys Exam - Physical Examination HEENT: PERRLA, moist MMs Neck: no JVD trach+ Respiratory: no wheezing, no rales Cardiovascular: RRR, no significant murmur Gastrointestinal: soft, positive bowel sounds peg+ Musculoskeletal: pulses present, edema present Neurological: non-focal, moves all 4 limbs Psychiatric: A&O x 3 Dx/Plan (1) Acute and chronic respiratory failure Code(s): J96.20 - ACUTE AND CHR RESP FAILURE, UNSP W HYPOXIA OR HYPERCAPNIA Status: Chronic Qualifiers: Respiratory failure complication: hypoxia and hypercapnia Qualified Code(s) : J96.21 - Acute and chronic respiratory failure with hypoxia; J96.22 - Acute and chronic respiratory failure with hypercapnia; J96.22 - Acute and chronic respiratory failure with hypercapnia; J96.22 - Acute and chronic respiratory failure with hypercapnia Comment: Stable on trach collar now. (2) CAROL (obstructive sleep apnea) Code(s): G47.33 - OBSTRUCTIVE SLEEP APNEA (ADULT) (PEDIATRIC) Status: Chronic (3) Afib Code(s): I48.91 - UNSPECIFIED ATRIAL FIBRILLATION Status: Deleted Qualifiers: Atrial fibrillation type: paroxysmal Qualified Code(s): I48.0 - Paroxysmal atrial fibrillation Comment: Rate controlled. Continue Eliquis, ASA and Amiodarone. (4) Acute on chronic diastolic (congestive) heart failure Code(s): I50.33 - ACUTE ON CHRONIC DIASTOLIC (CONGESTIVE) HEART FAILURE Status : Chronic (5) Pickwickian syndrome Code(s): E66.2 - MORBID (SEVERE) OBESITY WITH ALVEOLAR HYPOVENTILATION Status : Chronic Comment: s/p trach collar. (6) Status post tracheostomy Code(s): Z93.0 - TRACHEOSTOMY STATUS Status: Deleted Comment: Had procedure on 03/09/18. Stable. (7) S/P percutaneous endoscopic gastrostomy (PEG) tube placement Code(s): Z93.1 - GASTROSTOMY STATUS Status: Deleted Comment: Had procedure on 03/09/18. Stable. (8) Severe muscle deconditioning Code(s): R29.898 - OT SYMPTOMS AND SIGNS INVOLVING THE MUSCULOSKELETAL SYSTEM Status: Acute - Plan for oral feeding trials from today, has cleared ba swallow per speech -: pt to wear speaking valve for longer periods as tolerated -: PT/OT to mobilize pt more/learn to pivot for dc planning -: is on eliquis, asp, amiodarone, cozaar -: hemostable * . Review of Systems - Medications/Allergies Allergies/Adverse Reactions: Allergies Allergy/AdvReac Type Severity Reaction Status Date / Time No Known Drug Allergies Allergy Verified 03/08/18 14:16 Medications: Current Medications Acetaminophen (Tylenol Elixir) 1,000 mg PER TUBE Q6H PRN PRN Reason: Headache/Fever or Pain Last Admin: 04/20/18 09:11 Dose: 1,000 mg Al Hydroxide/Mg Hydroxide (Maalox) 15 ml PER TUBE Q4H PRN PRN Reason: Heartburn or Indigestion Albuterol/Ipratropium (Duoneb) 3 ml NEB [id number] HEIKE Last Admin: 04/21/18 07:29 Dose: 3 ml Amiodarone HCl (Cordarone) 200 mg PO DAILY [facility] Last Admin: 04/21/18 10:57 Dose: 200 mg Lipase/Protease/Amylase ([place] [id number]) 1 cap FS .PER PROTOCOL PRN PRN Reason: TUBE OCCLUSION PROTOCOL Apixaban (Eliquis) 5 mg PO BID [facility] Last Admin: 04/21/18 10:57 Dose: 5 mg Artificial Tears (Tears Renewed 15ml Bottle) 0 drop EA EYE PRN PRN PRN Reason: Dry Eyes Aspirin (Aspirin Chewable) 81 mg PO DAILY [facility] Last Admin: 04/21/18 10:58 Dose: 81 mg Bupropion HCl (Wellbutrin) 150 mg PER TUBE BID [facility] Last Admin: 04/21/18 10:58 Dose: 150 mg Clonidine (Catapres) 0.1 mg PO Q4H PRN PRN Reason: Systolic BP > 180 Last Admin: 03/20/18 21:05 Dose: 0.1 mg Furosemide (Lasix) 40 mg PER TUBE DAILY-[facility] Last Admin: 04/21/18 10:57 Dose: 40 mg Guaifenesin/Dextromethorphan (Robitussin Dm) 10 ml PER TUBE 0300,0900,1500, 2100 [facility] Last Admin: 04/21/18 10:59 Dose: 10 ml Hydralazine HCl (Apresoline) 10 mg SLOW IVP Q4H PRN PRN Reason: Systolic BP > 180 Last Admin: 03/14/18 17:06 Dose: 10 mg Loperamide HCl (Imodium) 2 mg PER TUBE PRN PRN PRN Reason: Diarrhea/Loose Stools Losartan Potassium (Cozaar) 12.5 mg PO DAILY [facility] Last Admin: 04/21/18 11:47 Dose: 12.5 mg Magnesium Hydroxide (Milk Of Magnesium) 30 ml PER TUBE DAILYPRN PRN PRN Reason: Constipation Mineral Oil/White Petrolatum (Eucerin Cream) 0 gm TOP BIDPRN PRN PRN Reason: Dry Skin Nystatin (Mycostatin Powder) 30 gm TOP BID [facility] Last Admin: 04/21/18 10:59 Dose: 1 applic Ondansetron HCl (Zofran Odt) 4 mg PO Q6H PRN PRN Reason: Nausea/Vomiting Last Admin: 04/03/18 09:09 Dose: 4 mg Ondansetron HCl (Zofran) 4 mg IVP Q6H PRN PRN Reason: Nausea/Vomiting Pantoprazole Sodium (Protonix) 40 mg PER TUBE DAILY [facility] Last Admin: 04/21/18 10:57 Dose: 40 mg Phenol (Chloraseptic [place] 180 Ml Bot) 0 ml PO PRN PRN PRN Reason: Sore Throat Potassium Chloride (Klor-Con) 20 meq PO QAM-WM [facility] Last Admin: 04/21/18 10:58 Dose: 20 meq Scopolamine (Transderm Scop) 1.5 mg TD Q3D [facility] Last Admin: 04/20/18 09:09 Dose: 1.5 mg Senna (Senokot) 2 tab PER TUBE HSPRN PRN PRN Reason: Constipation Sodium Bicarbonate (Bicarbonate, Sodium) 650 mg PER TUBE .PER PROTOCOL PRN PRN Reason: ENTERAL TUBE OCCLUSION Sodium Chloride (Flush - Normal Saline) 10 ml IVF Q12HR [facility] Last Admin: 04/21/18 11:00 Dose: 10 ml Sodium Chloride (Flush - Normal Saline) 10 ml IVF PRN PRN PRN Reason: Saline Flush Last Admin: 04/13/18 05:41 Dose: 10 ml Sodium Chloride ([place] Nasal [place] 0.65%) 0 ml EA NARE QIDPRN PRN PRN Reason: Nasal Congestion
[2018-04-22] MEDS: Guaifenesin DM 100-10/5 ML UDCUP PER TUBE SCH ×4 (02:52→20:16)
--- NOTE | 2018-04-22 08:47 | PRG ---
DATE OF SERVICE: 04/22/2018 The patient is advanced in terms of diet and is now on regular food, that seems to make her much happ ier. PHYSICAL EXAMINATION: VITAL SIGNS: On exam temperature is 98.0, pulse 82, respirations 20, O2 sat 96%. HEENT: Unremarkable. NECK: No JVD. Trach looks clear. CARDIAC: S1 and S2 regular. LUNGS: Clear. ABDOMEN: Soft, obese. EXTREMITIES: No edema. ASSESSMENT: 1. Obese hypoventilation syndrome. 2. Status post tracheostomy. 3. Chronic respiratory failure. PLAN: She needs to work aggressively on reconditioning as that is really the only thing that is keep ing her in the hospital at this time.
[2018-04-22] MEDS: Pantoprazole 40 MG GRANULES PACKET PER TUBE SCH (10:45)
[2018-04-22] MEDS: buPROPion 75 MG TAB PER TUBE SCH ×2 (10:45→20:16)
[2018-04-22] MEDS: Losartan 25 MG TAB PO SCH (10:46)
[2018-04-22] MEDS: Furosemide 40 MG TAB PER TUBE SCH (10:46)
[2018-04-22] MEDS: Apixaban 5 MG TAB PO SCH ×2 (10:46→20:16)
[2018-04-22] MEDS: Amiodarone 200 MG TAB PO SCH (10:47)
[2018-04-22] MEDS: Nystatin Powder 15 GM BOT TOP SCH ×2 (10:48→20:17)
--- NOTE | 2018-04-22 12:51 | PDOC.PN ---
- Subjective Encounter Start Date: 04/22/18 Encounter Start Time: 10:20 Subjective: awake, eating her breakfast -: no sob - Objective Resuscitation Status: Resuscitation Status FULL:Full Resuscitation MAR Reviewed: Yes Vital Signs & Weight: Vital Signs (12 hours) Temp Pulse Pulse Pulse Resp BP BP 04/22/18 11:59 97.4 F L 73 23 H 04/22/18 11:15 75 78 115/53 L 128/56 L 04/22/18 07:54 98.0 F 72 20 04/22/18 07:38 98.0 F 72 20 04/22/18 07:04 76 20 04/22/18 07:03 04/22/18 03:53 98.7 F 73 20 BP Pulse Ox Pulse Ox Pulse Ox 04/22/18 11:59 115/53 L 97 04/22/18 11:15 96 98 04/22/18 07:54 96 04/22/18 07:38 117/49 L 99 04/22/18 07:04 92 L 04/22/18 07:03 92 L 04/22/18 03:53 105/54 L 95 Weight Admit Weight 600 lb Weight 342 lb 1.6 oz Most Recent Monitor Data Heart Rate from ECG 73 NIBP 109/61 NIBP BP-Mean 72 Respiration from ECG 29 SpO2 94 I&O: 04/21/18 04/22/18 04/23/18 06:59 06:59 06:59 Intake Total 1340 1430 350 Output Total 1100 600 Balance 240 830 350 Result Diagrams: 04/21/18 04:04 04/21/18 04:04 Phys Exam - Physical Examination HEENT: PERRLA, sclera anicteric Neck: no JVD trach+ Respiratory: no wheezing, no rales Cardiovascular: RRR, no significant murmur Gastrointestinal: soft, non-tender, positive bowel sounds Musculoskeletal: no edema, pulses present Neurological: non-focal, moves all 4 limbs Psychiatric: normal affect, A&O x 3 Dx/Plan (1) Acute and chronic respiratory failure Code(s): J96.20 - ACUTE AND CHR RESP FAILURE, UNSP W HYPOXIA OR HYPERCAPNIA Status: Chronic Qualifiers: Respiratory failure complication: hypoxia and hypercapnia Qualified Code(s) : J96.21 - Acute and chronic respiratory failure with hypoxia; J96.22 - Acute and chronic respiratory failure with hypercapnia; J96.22 - Acute and chronic respiratory failure with hypercapnia; J96.22 - Acute and chronic respiratory failure with hypercapnia Comment: Stable on trach collar now. (2) CAROL (obstructive sleep apnea) Code(s): G47.33 - OBSTRUCTIVE SLEEP APNEA (ADULT) (PEDIATRIC) Status: Chronic (3) Afib Code(s): I48.91 - UNSPECIFIED ATRIAL FIBRILLATION Status: Deleted Qualifiers: Atrial fibrillation type: paroxysmal Qualified Code(s): I48.0 - Paroxysmal atrial fibrillation Comment: Rate controlled. Continue Eliquis, ASA and Amiodarone. (4) Acute on chronic diastolic (congestive) heart failure Code(s): I50.33 - ACUTE ON CHRONIC DIASTOLIC (CONGESTIVE) HEART FAILURE Status : Chronic (5) Pickwickian syndrome Code(s): E66.2 - MORBID (SEVERE) OBESITY WITH ALVEOLAR HYPOVENTILATION Status : Chronic Comment: s/p trach collar. (6) Status post tracheostomy Code(s): Z93.0 - TRACHEOSTOMY STATUS Status: Deleted Comment: Had procedure on 03/09/18. Stable. (7) S/P percutaneous endoscopic gastrostomy (PEG) tube placement Code(s): Z93.1 - GASTROSTOMY STATUS Status: Deleted Comment: Had procedure on 03/09/18. Stable. (8) Severe muscle deconditioning Code(s): R29.898 - OT SYMPTOMS AND SIGNS INVOLVING THE MUSCULOSKELETAL SYSTEM Status: Acute - Plan hemostable -: dc scopalamine, she is eating orally now -: PT to mobilize more as tolerated -: dc plan home if she can pivot and get into a wheel chair -: continue amiod, asp, eliquis, cozaar and lasix * . Review of Systems - Medications/Allergies Allergies/Adverse Reactions: Allergies Allergy/AdvReac Type Severity Reaction Status Date / Time No Known Drug Allergies Allergy Verified 03/08/18 14:16 Medications: Current Medications Acetaminophen (Tylenol Elixir) 1,000 mg PER TUBE Q6H PRN PRN Reason: Headache/Fever or Pain Last Admin: 04/20/18 09:11 Dose: 1,000 mg Al Hydroxide/Mg Hydroxide (Maalox) 15 ml PER TUBE Q4H PRN PRN Reason: Heartburn or Indigestion Albuterol/Ipratropium (Duoneb) 3 ml NEB [id number] [facility] Last Admin: 04/22/18 07:04 Dose: 3 ml Amiodarone HCl (Cordarone) 200 mg PO DAILY [facility] Last Admin: 04/22/18 10:47 Dose: 200 mg Lipase/Protease/[place]ylase ([place] [id number]) 1 cap FS .PER PROTOCOL PRN PRN Reason: TUBE OCCLUSION PROTOCOL Apixaban (Eliquis) 5 mg PO BID [facility] Last Admin: 04/22/18 10:46 Dose: 5 mg Artificial Tears (Tears Renewed 15ml Bottle) 0 drop EA EYE PRN PRN PRN Reason: Dry Eyes Aspirin (Aspirin Chewable) 81 mg PO DAILY [facility] Last Admin: 04/22/18 10:47 Dose: 81 mg Bupropion HCl (Wellbutrin) 150 mg PER TUBE BID [facility] Last Admin: 04/22/18 10:45 Dose: 150 mg Clonidine (Catapres) 0.1 mg PO Q4H PRN PRN Reason: Systolic BP > 180 Last Admin: 03/20/18 21:05 Dose: 0.1 mg Furosemide (Lasix) 40 mg PER TUBE DAILY-AC [facility] Last Admin: 04/22/18 10:46 Dose: 40 mg Guaifenesin/Dextromethorphan (Robitussin Dm) 10 ml PER TUBE 0300,0900,1500, 2100 [facility] Last Admin: 04/22/18 10:45 Dose: 10 ml Hydralazine HCl (Apresoline) 10 mg SLOW IVP Q4H PRN PRN Reason: Systolic BP > 180 Last Admin: 03/14/18 17:06 Dose: 10 mg Loperamide HCl (Imodium) 2 mg PER TUBE PRN PRN PRN Reason: Diarrhea/Loose Stools Losartan Potassium (Cozaar) 12.5 mg PO DAILY [facility] Last Admin: 04/22/18 10:46 Dose: 12.5 mg Magnesium Hydroxide (Milk Of Magnesium) 30 ml PER TUBE DAILYPRN PRN PRN Reason: Constipation Mineral Oil/White Petrolatum (Eucerin Cream) 0 gm TOP BIDPRN PRN PRN Reason: Dry Skin Nystatin (Mycostatin Powder) 30 gm TOP BID [facility] Last Admin: 04/22/18 10:48 Dose: 1 applic Ondansetron HCl (Zofran Odt) 4 mg PO Q6H PRN PRN Reason: Nausea/Vomiting Last Admin: 04/03/18 09:09 Dose: 4 mg Ondansetron HCl (Zofran) 4 mg IVP Q6H PRN PRN Reason: Nausea/Vomiting Pantoprazole Sodium (Protonix) 40 mg PER TUBE DAILY [facility] Last Admin: 04/22/18 10:45 Dose: 40 mg Phenol (Chloraseptic [place] 180 Ml Bot) 0 ml PO PRN PRN PRN Reason: Sore Throat Potassium Chloride (Klor-Con) 20 meq PO QAM-WM [facility] Last Admin: 04/22/18 10:46 Dose: 20 meq Senna (Senokot) 2 tab PER TUBE HSPRN PRN PRN Reason: Constipation Sodium Bicarbonate (Bicarbonate, Sodium) 650 mg PER TUBE .PER PROTOCOL PRN PRN Reason: ENTERAL TUBE OCCLUSION Sodium Chloride (Flush - Normal Saline) 10 ml IVF Q12HR [facility] Last Admin: 04/22/18 10:48 Dose: 10 ml Sodium Chloride (Flush - Normal Saline) 10 ml IVF PRN PRN PRN Reason: Saline Flush Last Admin: 04/13/18 05:41 Dose: 10 ml Sodium Chloride ([place] Nasal [place] 0.65%) 0 ml EA NARE QIDPRN PRN PRN Reason: Nasal Congestion
[2018-04-23] MEDS: Guaifenesin DM 100-10/5 ML UDCUP PER TUBE SCH ×4 (03:46→20:19)
[2018-04-23 04:02] LABS: Hemoglobin 10.1 g/dL (12.0-16.0); Platelet Count 94 thou/uL (130-400)
[2018-04-23] MEDS: Acetaminophen 650 MG/20.3 ML UDCUP PER TUBE PRN (08:16)
[2018-04-23] MEDS: Furosemide 40 MG TAB PER TUBE SCH (10:53)
[2018-04-23] MEDS: Amiodarone 200 MG TAB PO SCH (10:54)
[2018-04-23] MEDS: Apixaban 5 MG TAB PO SCH ×2 (10:54→20:19)
[2018-04-23] MEDS: Losartan 25 MG TAB PO SCH (10:54)
[2018-04-23] MEDS: Pantoprazole 40 MG GRANULES PACKET PER TUBE SCH (10:54)
[2018-04-23] MEDS: buPROPion 75 MG TAB PER TUBE SCH ×2 (10:55→20:19)
[2018-04-23] MEDS: Nystatin Powder 15 GM BOT TOP SCH ×2 (10:56→20:26)
--- NOTE | 2018-04-23 12:17 | PRG ---
DATE OF SERVICE: 04/23/2018 SUBJECTIVE: The patient is doing well, has no complaints. OBJECTIVE: VITAL SIGNS: Temperature 97.9, pulse 70, respiratory rate 18, O2 saturation 100%, blood pressure 103 /59. HEENT: Unremarkable. NECK: No JVD. CHEST: Clear. CARDIAC: S1 and S2 regular. ABDOMEN: Soft. EXTREMITIES: No edema. ASSESSMENT: 1. Obstructive sleep apnea/obesity hypoventilation syndrome. 2. Status post trach. PLAN: Really rehabilitation project at this point. I have reviewed the orders. Everything seems ap propriate since she is on anticoagulation. She is having H&H and platelets checked every 3 days. To day, his numbers look okay.
--- NOTE | 2018-04-23 12:45 | PDOC.PN ---
- Subjective Encounter Start Date: 04/23/18 Encounter Start Time: 11:00 Subjective: awake, no sob -: responds well to verbal stimuli - Objective Resuscitation Status: Resuscitation Status FULL:Full Resuscitation MAR Reviewed: Yes Vital Signs & Weight: Vital Signs (12 hours) Temp Pulse Pulse Pulse Resp BP BP 04/23/18 11:28 98.0 F 68 20 04/23/18 10:38 75 71 121/67 126/59 L 04/23/18 08:00 98.0 F 68 20 04/23/18 07:51 70 18 04/23/18 07:48 97.9 F 68 20 04/23/18 04:08 98.6 F 94 17 04/23/18 01:16 92 18 BP Pulse Ox Pulse Ox Pulse Ox 04/23/18 11:28 126/59 L 99 04/23/18 10:38 100 98 04/23/18 08:00 96 04/23/18 07:51 100 04/23/18 07:48 103/59 L 98 04/23/18 04:08 103/58 L 98 04/23/18 01:16 97 Weight Admit Weight 600 lb Weight 342 lb 1.6 oz Most Recent Monitor Data Heart Rate from ECG 73 NIBP 109/61 NIBP BP-Mean 72 Respiration from ECG 29 SpO2 94 I&O: 04/22/18 04/23/18 04/24/18 06:59 06:59 06:59 Intake Total 1430 1860 Output Total 600 1550 Balance 830 310 Result Diagrams: 04/23/18 03:40 04/23/18 03:40 Phys Exam - Physical Examination HEENT: PERRLA, sclera anicteric Neck: no JVD, supple trach+ Respiratory: no wheezing, no rales Cardiovascular: RRR, no significant murmur Gastrointestinal: soft, non-tender, positive bowel sounds peg+ Musculoskeletal: pulses present, edema present Neurological: non-focal, moves all 4 limbs Psychiatric: normal affect, A&O x 3 Dx/Plan (1) Acute and chronic respiratory failure Code(s): J96.20 - ACUTE AND CHR RESP FAILURE, UNSP W HYPOXIA OR HYPERCAPNIA Status: Chronic Qualifiers: Respiratory failure complication: hypoxia and hypercapnia Qualified Code(s) : J96.21 - Acute and chronic respiratory failure with hypoxia; J96.22 - Acute and chronic respiratory failure with hypercapnia; J96.22 - Acute and chronic respiratory failure with hypercapnia; J96.22 - Acute and chronic respiratory failure with hypercapnia Comment: Stable on trach collar. (2) CAROL (obstructive sleep apnea) Code(s): G47.33 - OBSTRUCTIVE SLEEP APNEA (ADULT) (PEDIATRIC) Status: Chronic (3) Afib Code(s): I48.91 - UNSPECIFIED ATRIAL FIBRILLATION Status: Chronic Qualifiers: Atrial fibrillation type: paroxysmal Qualified Code(s): I48.0 - Paroxysmal atrial fibrillation Comment: Rate controlled. Continue Eliquis, ASA and Amiodarone. (4) Acute on chronic diastolic (congestive) heart failure Code(s): I50.33 - ACUTE ON CHRONIC DIASTOLIC (CONGESTIVE) HEART FAILURE Status : Chronic (5) Pickwickian syndrome Code(s): E66.2 - MORBID (SEVERE) OBESITY WITH ALVEOLAR HYPOVENTILATION Status : Chronic Comment: s/p trach collar. (6) Status post tracheostomy Code(s): Z93.0 - TRACHEOSTOMY STATUS Status: Deleted Comment: Had procedure on 03/09/18. Stable. (7) S/P percutaneous endoscopic gastrostomy (PEG) tube placement Code(s): Z93.1 - GASTROSTOMY STATUS Status: Deleted Comment: Had procedure on 03/09/18. Stable. (8) Severe muscle deconditioning Code(s): R29.898 - OT SYMPTOMS AND SIGNS INVOLVING THE MUSCULOSKELETAL SYSTEM Status: Acute - Plan hemostable -: tolerating oral diet -: to mobilize for dc plan -: d/w PT, CM on floor -: will likely need Julia lift or similar for her weight for dc * . On amiodarone, eliquis, asp, cozaar and lasix. Review of Systems - Medications/Allergies Allergies/Adverse Reactions: Allergies Allergy/AdvReac Type Severity Reaction Status Date / Time No Known Drug Allergies Allergy Verified 03/08/18 14:16 Medications: Current Medications Acetaminophen (Tylenol Elixir) 1,000 mg PER TUBE Q6H PRN PRN Reason: Headache/Fever or Pain Last Admin: 04/23/18 08:16 Dose: 1,000 mg Al Hydroxide/Mg Hydroxide (Maalox) 15 ml PER TUBE Q4H PRN PRN Reason: Heartburn or Indigestion Albuterol/Ipratropium (Duoneb) 3 ml NEB [id number] [facility] Last Admin: 04/23/18 07:51 Dose: 3 ml Amiodarone HCl (Cordarone) 200 mg PO DAILY [facility] Last Admin: 04/23/18 10:54 Dose: 200 mg Lipase/Protease/Amylase ([place] [id number]) 1 cap FS .PER PROTOCOL PRN PRN Reason: TUBE OCCLUSION PROTOCOL Apixaban (Eliquis) 5 mg PO BID [facility] Last Admin: 04/23/18 10:54 Dose: 5 mg Artificial Tears (Tears Renewed 15ml Bottle) 0 drop EA EYE PRN PRN PRN Reason: Dry Eyes Aspirin (Aspirin Chewable) 81 mg PO DAILY [facility] Last Admin: 04/23/18 10:54 Dose: 81 mg Bupropion HCl (Wellbutrin) 150 mg PER TUBE BID [facility] Last Admin: 04/23/18 10:55 Dose: 150 mg Clonidine (Catapres) 0.1 mg PO Q4H PRN PRN Reason: Systolic BP > 180 Last Admin: 03/20/18 21:05 Dose: 0.1 mg Furosemide (Lasix) 40 mg PER TUBE DAILY-AC [facility] Last Admin: 04/23/18 10:53 Dose: 40 mg Guaifenesin/Dextromethorphan (Robitussin Dm) 10 ml PER TUBE 0300,0900,1500, 2100 [facility] Last Admin: 04/23/18 10:54 Dose: 10 ml Hydralazine HCl (Apresoline) 10 mg SLOW IVP Q4H PRN PRN Reason: Systolic BP > 180 Last Admin: 03/14/18 17:06 Dose: 10 mg Loperamide HCl (Imodium) 2 mg PER TUBE PRN PRN PRN Reason: Diarrhea/Loose Stools Losartan Potassium (Cozaar) 12.5 mg PO DAILY [facility] Last Admin: 04/23/18 10:54 Dose: 12.5 mg Magnesium Hydroxide (Milk Of Magnesium) 30 ml PER TUBE DAILYPRN PRN PRN Reason: Constipation Mineral Oil/White Petrolatum (Eucerin Cream) 0 gm TOP BIDPRN PRN PRN Reason: Dry Skin Nystatin (Mycostatin Powder) 30 gm TOP BID [facility] Last Admin: 04/23/18 10:56 Dose: 1 applic Ondansetron HCl (Zofran Odt) 4 mg PO Q6H PRN PRN Reason: Nausea/Vomiting Last Admin: 04/03/18 09:09 Dose: 4 mg Ondansetron HCl (Zofran) 4 mg IVP Q6H PRN PRN Reason: Nausea/Vomiting Pantoprazole Sodium (Protonix) 40 mg PER TUBE DAILY [facility] Last Admin: 04/23/18 10:54 Dose: 40 mg Phenol (Chloraseptic [place] 180 Ml Bot) 0 ml PO PRN PRN PRN Reason: Sore Throat Potassium Chloride (Klor-Con) 20 meq PO QAM-WM [facility] Last Admin: 04/23/18 10:54 Dose: 20 meq Senna (Senokot) 2 tab PER TUBE HSPRN PRN PRN Reason: Constipation Sodium Bicarbonate (Bicarbonate, Sodium) 650 mg PER TUBE .PER PROTOCOL PRN PRN Reason: ENTERAL TUBE OCCLUSION Sodium Chloride (Flush - Normal Saline) 10 ml IVF Q12HR [facility] Last Admin: 04/23/18 10:56 Dose: 10 ml Sodium Chloride (Flush - Normal Saline) 10 ml IVF PRN PRN PRN Reason: Saline Flush Last Admin: 04/13/18 05:41 Dose: 10 ml Sodium Chloride ([place] Nasal [place] 0.65%) 0 ml EA NARE QIDPRN PRN PRN Reason: Nasal Congestion
--- NOTE | 2018-04-23 17:17 | RAD ---
MODIFIED BARIUM SWALLOW 04/21/18 COMPARISON: None. HISTORY: Dysphagia and feeding difficulties. FINDINGS: Modified barium swallow is performed in conjunction with a member of the Division of Speech Pathology . The patient was imaged in the lateral projection swallowing various consistencies of barium. FINDINGS: No penetration or aspiration is seen on this examination. IMPRESSION: No penetration or aspiration seen. POS: SELENE
[2018-04-24] MEDS: Guaifenesin DM 100-10/5 ML UDCUP PER TUBE SCH ×4 (03:10→20:19)
[2018-04-24] MEDS: Losartan 25 MG TAB PO SCH (09:17)
[2018-04-24] MEDS: Apixaban 5 MG TAB PO SCH ×2 (09:17→20:19)
[2018-04-24] MEDS: Amiodarone 200 MG TAB PO SCH (09:17)
[2018-04-24] MEDS: Furosemide 40 MG TAB PER TUBE SCH (09:17)
[2018-04-24] MEDS: buPROPion 75 MG TAB PER TUBE SCH ×2 (09:17→20:20)
[2018-04-24] MEDS: Pantoprazole 40 MG GRANULES PACKET PER TUBE SCH (09:18)
[2018-04-24] MEDS: Nystatin Powder 15 GM BOT TOP SCH ×2 (09:19→20:20)
--- NOTE | 2018-04-24 09:58 | PRG ---
DATE OF SERVICE: 04/24/2018 The patient is doing well except for secretions. PHYSICAL EXAMINATION: VITAL SIGNS: Temperature is 98.1, pulse 72, respirations 16, O2 sat 97%. HEENT: Unremarkable. NECK: No adenopathy or JVD. LUNGS: Clear. CARDIAC: S1 and S2 regular. ABDOMEN: Soft. EXTREMITIES: No edema. ASSESSMENT: 1. Severe deconditioning. 2. Obstructive sleep apnea/obesity hypoventilation syndrome. 3. Status post trach. PLAN: As per yesterday, this is a rehabilitation issue.
--- NOTE | 2018-04-24 12:40 | PDOC.PN ---
- Subjective Encounter Start Date: 04/24/18 Encounter Start Time: 11:35 Subjective: feels better -: no trouble swallowing - Objective Resuscitation Status: Resuscitation Status FULL:Full Resuscitation MAR Reviewed: Yes Vital Signs & Weight: Vital Signs (12 hours) Temp Pulse Resp BP Pulse Ox 04/24/18 11:36 97.6 F 75 20 98/57 L 99 04/24/18 08:23 97 04/24/18 08:16 72 16 97 04/24/18 08:00 97.7 F 72 16 124/63 97 04/24/18 04:00 98.1 F 70 16 125/57 L 95 04/24/18 00:43 65 16 99 Weight Admit Weight 600 lb Weight 342 lb 1.6 oz Most Recent Monitor Data Heart Rate from ECG 73 NIBP 109/61 NIBP BP-Mean 72 Respiration from ECG 29 SpO2 94 I&O: 04/23/18 04/24/18 04/25/18 06:59 06:59 06:59 Intake Total 1860 1100 Output Total 1550 1360 Balance 310 -260 Result Diagrams: 04/23/18 03:40 04/23/18 03:40 Phys Exam - Physical Examination HEENT: PERRLA, sclera anicteric Neck: no JVD trach+ Respiratory: no wheezing, no rales Cardiovascular: RRR, no significant murmur Gastrointestinal: soft, no distention, positive bowel sounds Musculoskeletal: pulses present, edema present Neurological: non-focal, moves all 4 limbs Psychiatric: normal affect, A&O x 3 Dx/Plan (1) Acute and chronic respiratory failure Code(s): J96.20 - ACUTE AND CHR RESP FAILURE, UNSP W HYPOXIA OR HYPERCAPNIA Status: Chronic Qualifiers: Respiratory failure complication: hypoxia and hypercapnia Qualified Code(s) : J96.21 - Acute and chronic respiratory failure with hypoxia; J96.22 - Acute and chronic respiratory failure with hypercapnia; J96.22 - Acute and chronic respiratory failure with hypercapnia; J96.22 - Acute and chronic respiratory failure with hypercapnia Comment: Stable on trach collar. (2) CAROL (obstructive sleep apnea) Code(s): G47.33 - OBSTRUCTIVE SLEEP APNEA (ADULT) (PEDIATRIC) Status: Chronic (3) Afib Code(s): I48.91 - UNSPECIFIED ATRIAL FIBRILLATION Status: Chronic Qualifiers: Atrial fibrillation type: paroxysmal Qualified Code(s): I48.0 - Paroxysmal atrial fibrillation Comment: Rate controlled. Continue Eliquis, ASA and Amiodarone. (4) Acute on chronic diastolic (congestive) heart failure Code(s): I50.33 - ACUTE ON CHRONIC DIASTOLIC (CONGESTIVE) HEART FAILURE Status : Chronic (5) Pickwickian syndrome Code(s): E66.2 - MORBID (SEVERE) OBESITY WITH ALVEOLAR HYPOVENTILATION Status : Chronic Comment: s/p trach collar. (6) Status post tracheostomy Code(s): Z93.0 - TRACHEOSTOMY STATUS Status: Deleted Comment: Had procedure on 03/09/18. Stable. (7) S/P percutaneous endoscopic gastrostomy (PEG) tube placement Code(s): Z93.1 - GASTROSTOMY STATUS Status: Deleted Comment: Had procedure on 03/09/18. Stable. (8) Severe muscle deconditioning Code(s): R29.898 - OTH SYMPTOMS AND SIGNS INVOLVING THE MUSCULOSKELETAL SYSTEM Status: Acute - Plan to work with PT/OT -: continue oral feeding -: teach pt to do trach suction prn, she moves upper extr well -: CM for help with dc plan/home devices including lift chair etc -: on eliquis, amiod and cozaar * . Review of Systems - Medications/Allergies Allergies/Adverse Reactions: Allergies Allergy/AdvReac Type Severity Reaction Status Date / Time No Known Drug Allergies Allergy Verified 03/08/18 14:16 Medications: Current Medications Acetaminophen (Tylenol Elixir) 1,000 mg PER TUBE Q6H PRN PRN Reason: Headache/Fever or Pain Last Admin: 04/23/18 08:16 Dose: 1,000 mg Al Hydroxide/Mg Hydroxide (Maalox) 15 ml PER TUBE Q4H PRN PRN Reason: Heartburn or Indigestion Albuterol/Ipratropium (Duoneb) 3 ml NEB [id number] [facility] Last Admin: 04/24/18 08:16 Dose: 3 ml Amiodarone HCl (Cordarone) 200 mg PO DAILY [facility] Last Admin: 04/24/18 09:17 Dose: 200 mg Lipase/Protease/Amylase ([place] [id number]) 1 cap FS .PER PROTOCOL PRN PRN Reason: TUBE OCCLUSION PROTOCOL Apixaban (Eliquis) 5 mg PO BID [facility] Last Admin: 04/24/18 09:17 Dose: 5 mg Artificial Tears (Tears Renewed 15ml Bottle) 0 drop EA EYE PRN PRN PRN Reason: Dry Eyes Aspirin (Aspirin Chewable) 81 mg PO DAILY [facility] Last Admin: 04/24/18 09:17 Dose: 81 mg Bupropion HCl (Wellbutrin) 150 mg PER TUBE BID [facility] Last Admin: 04/24/18 09:17 Dose: 150 mg Clonidine (Catapres) 0.1 mg PO Q4H PRN PRN Reason: Systolic BP > 180 Last Admin: 03/20/18 21:05 Dose: 0.1 mg Furosemide (Lasix) 40 mg PER TUBE DAILY-AC [facility] Last Admin: 04/24/18 09:17 Dose: 40 mg Guaifenesin/Dextromethorphan (Robitussin Dm) 10 ml PER TUBE 0300,0900,1500, 2100 [facility] Last Admin: 04/24/18 09:16 Dose: 10 ml Hydralazine HCl (Apresoline) 10 mg SLOW IVP Q4H PRN PRN Reason: Systolic BP > 180 Last Admin: 03/14/18 17:06 Dose: 10 mg Loperamide HCl (Imodium) 2 mg PER TUBE PRN PRN PRN Reason: Diarrhea/Loose Stools Losartan Potassium (Cozaar) 12.5 mg PO DAILY [facility] Last Admin: 04/24/18 09:17 Dose: 12.5 mg Magnesium Hydroxide (Milk Of Magnesium) 30 ml PER TUBE DAILYPRN PRN PRN Reason: Constipation Mineral Oil/White Petrolatum (Eucerin Cream) 0 gm TOP BIDPRN PRN PRN Reason: Dry Skin Nystatin (Mycostatin Powder) 30 gm TOP BID [facility] Last Admin: 04/24/18 09:19 Dose: 1 applic Ondansetron HCl (Zofran Odt) 4 mg PO Q6H PRN PRN Reason: Nausea/Vomiting Last Admin: 04/03/18 09:09 Dose: 4 mg Ondansetron HCl (Zofran) 4 mg IVP Q6H PRN PRN Reason: Nausea/Vomiting Pantoprazole Sodium (Protonix) 40 mg PER TUBE DAILY [facility] Last Admin: 04/24/18 09:18 Dose: 40 mg Phenol (Chloraseptic [place] 180 Ml Bot) 0 ml PO PRN PRN PRN Reason: Sore Throat Potassium Chloride (Klor-Con) 20 meq PO QAM-WM [facility] Last Admin: 04/24/18 09:18 Dose: 20 meq Senna (Senokot) 2 tab PER TUBE HSPRN PRN PRN Reason: Constipation Sodium Bicarbonate (Bicarbonate, Sodium) 650 mg PER TUBE .PER PROTOCOL PRN PRN Reason: ENTERAL TUBE OCCLUSION Sodium Chloride (Flush - Normal Saline) 10 ml IVF Q12HR [facility] Last Admin: 04/24/18 09:19 Dose: 10 ml Sodium Chloride (Flush - Normal Saline) 10 ml IVF PRN PRN PRN Reason: Saline Flush Last Admin: 04/13/18 05:41 Dose: 10 ml Sodium Chloride ([place] Nasal [place] 0.65%) 0 ml EA NARE QIDPRN PRN PRN Reason: Nasal Congestion
[2018-04-25] MEDS: Guaifenesin DM 100-10/5 ML UDCUP PER TUBE SCH ×4 (03:49→20:38)
[2018-04-25 05:03] LABS: Hemoglobin 10.2 g/dL (12.0-16.0); Platelet Count 98 thou/uL (130-400)
[2018-04-25] MEDS: buPROPion 75 MG TAB PER TUBE SCH ×2 (09:03→20:39)
[2018-04-25] MEDS: Furosemide 40 MG TAB PER TUBE SCH (09:04)
[2018-04-25] MEDS: Losartan 25 MG TAB PO SCH (09:04)
[2018-04-25] MEDS: Apixaban 5 MG TAB PO SCH ×2 (09:04→20:39)
[2018-04-25] MEDS: Pantoprazole 40 MG GRANULES PACKET PER TUBE SCH (09:04)
[2018-04-25] MEDS: Amiodarone 200 MG TAB PO SCH (09:05)
[2018-04-25] MEDS: Nystatin Powder 15 GM BOT TOP SCH ×2 (09:05→20:41)
--- NOTE | 2018-04-25 12:34 | PRG ---
DATE OF SERVICE: 04/25/2018 SERVICE: Pulmonary Medicine. INTERVAL HISTORY: The patient is doing fine from a respiratory standpoint. She denies any current c hest pain, nausea, vomiting, fever or chills. She is breathing comfortably. She is working with [employer] sical therapy on a day by day basis in order to get stronger. Otherwise, there has been no interval change to her condition. PHYSICAL EXAMINATION: VITAL SIGNS: Afebrile, pulse 87, blood pressure 127/69, respirations 20, saturation 99% on 28% FiO2. HEENT: Normocephalic, atraumatic. Sclerae are white, conjunctivae pink. Oral and nasal mucosa is m oist without lesions. LUNGS: Excellent air entry. No prolonged expiratory phase, wheezing, rhonchi, or crackles present. HEART: Normal rate, regular. ABDOMEN: Soft, nontender, nondistended. Bowel sounds are positive. MUSCULOSKELETAL: No cyanosis or clubbing. No pitting in the bilateral lower extremities. NEUROLOGIC: Grossly nonfocal. LABORATORY DATA: Hemoglobin 10.2, platelets 98,000 and roughly stable. Creatinine 0.75. Urine cult ures growing vancomycin resistant Enterococcus. ASSESSMENT: 1. Chronic hypoxic and hypercapnic respiratory failure. 2. Obstructive sleep apnea, status post tracheostomy. 3. Obesity hypoventilation syndrome. 4. Deconditioning. PLAN: We will continue to follow along. Mobilization efforts will be pushed. As soon as she is str trang enough to transition and transfer, and walk on her own, she will be ready for transition out of [facility]. We will continue to follow along in the meantime.
--- NOTE | 2018-04-25 14:41 | PDOC.PN ---
- Subjective Encounter Start Date: 04/25/18 Encounter Start Time: 08:50 -: old records requested/rev Pt seen and examined, chart reviewed in its entirety, this is my first visit with this patient complainins of cough, [employer],feels like she cannot mobilize. No F/C, no N/v/D/c, weak, but stood with PT x 3 for 1 minute each yesterday All systems reviewed and neg for all except as stated above - Objective Resuscitation Status: Resuscitation Status FULL:Full Resuscitation MAR Reviewed: Yes Vital Signs & Weight: Vital Signs (12 hours) Temp Pulse Resp BP Pulse Ox 04/25/18 14:23 68 20 96 04/25/18 12:00 98.2 F 70 22 H 124/59 L 100 04/25/18 08:01 87 20 98 04/25/18 08:00 98.5 F 87 20 99 04/25/18 07:00 98.4 F 77 24 H 127/69 100 04/25/18 05:08 98.5 F 72 17 123/62 99 Weight Admit Weight 600 lb Weight 342 lb 1.6 oz Most Recent Monitor Data Heart Rate from ECG 73 NIBP 109/61 NIBP BP-Mean 72 Respiration from ECG 29 SpO2 94 I&O: 04/24/18 04/25/18 04/26/18 06:59 06:59 06:59 Intake Total 1100 1560 Output Total 1360 1625 Balance -260 -65 Result Diagrams: 04/25/18 03:55 04/25/18 03:55 Radiology Reviewed by me: Yes EKG Reviewed by me: Yes Phys Exam - Physical Examination Constitutional: NAD HEENT: PERRLA, moist MMs, sclera anicteric, oral pharynx no lesions Neck: no nodes, no JVD, supple, full ROM trach C/D/I Respiratory: no wheezing, no rales, no rhonchi, clear to auscultation bilateral Cardiovascular: RRR, no significant murmur, no rub Gastrointestinal: soft, non-tender, positive bowel sounds Musculoskeletal: edema present Neurological: moves all 4 limbs Lymphatic: no nodes Psychiatric: normal affect, A&O x 3 Skin: no rash, normal turgor, cap refill <2 seconds Dx/Plan (1) Acute respiratory failure with hypoxia and hypercapnia Code(s): J96.01 - ACUTE RESPIRATORY FAILURE WITH HYPOXIA; J96.02 - ACUTE RESPIRATORY FAILURE WITH HYPERCAPNIA Status: Acute Comment: s/p trach/PEG (2) Severe muscle deconditioning Code(s): R29.898 - OTH SYMPTOMS AND SIGNS INVOLVING THE MUSCULOSKELETAL SYSTEM Status: Acute (3) Thrombocytopenia Code(s): D69.6 - THROMBOCYTOPENIA, UNSPECIFIED Status: Acute (4) UTI (urinary tract infection) Status: Acute (5) Acute and chronic respiratory failure Code(s): J96.20 - ACUTE AND CHR RESP FAILURE, UNSP W HYPOXIA OR HYPERCAPNIA Status: Chronic Qualifiers: Respiratory failure complication: hypoxia and hypercapnia Qualified Code(s) : J96.21 - Acute and chronic respiratory failure with hypoxia; J96.22 - Acute and chronic respiratory failure with hypercapnia; J96.22 - Acute and chronic respiratory failure with hypercapnia; J96.22 - Acute and chronic respiratory failure with hypercapnia Comment: Stable on trach collar. (6) Acute on chronic diastolic (congestive) heart failure Code(s): I50.33 - ACUTE ON CHRONIC DIASTOLIC (CONGESTIVE) HEART FAILURE Status : Chronic (7) Afib Code(s): I48.91 - UNSPECIFIED ATRIAL FIBRILLATION Status: Chronic Qualifiers: Atrial fibrillation type: paroxysmal Qualified Code(s): I48.0 - Paroxysmal atrial fibrillation Comment: Rate controlled. Continue Eliquis, ASA and Amiodarone. (8) Anemia, normocytic normochromic Code(s): D64.9 - ANEMIA, UNSPECIFIED Status: Chronic (9) Chronic a-fib Code(s): I48.2 - CHRONIC ATRIAL FIBRILLATION Status: Chronic Comment: on anticoag/[place]. Now paroxysmal (10) Chronic diastolic CHF (congestive heart failure), NYHA class 3 Code(s): I50.32 - CHRONIC DIASTOLIC (CONGESTIVE) HEART FAILURE Status: Chronic Comment: Stable. Diuretics initially held 2/2 azotemia. Will be given PRN. (11) Morbid obesity with BMI of 60.0-69.9, adult Code(s): E66.01 - MORBID (SEVERE) OBESITY DUE TO EXCESS CALORIES; Z68.44 - BODY MASS INDEX (BMI) 60.0-69.9, ADULT Status: Chronic (12) CAROL (obstructive sleep apnea) Code(s): G47.33 - OBSTRUCTIVE SLEEP APNEA (ADULT) (PEDIATRIC) Status: Chronic (13) Physical deconditioning Code(s): R53.81 - OTHER MALAISE Status: Chronic (14) Pickwickian syndrome Code(s): E66.2 - MORBID (SEVERE) OBESITY WITH ALVEOLAR HYPOVENTILATION Status : Chronic Comment: s/p trach collar. - Plan cont current plan of care, PT/OT, out of bed/ambulate * .home when can stand pivot and transfer to
[2018-04-26] MEDS: Guaifenesin DM 100-10/5 ML UDCUP PER TUBE SCH ×2 (03:00→09:24)
[2018-04-26] MEDS: Apixaban 5 MG TAB PO SCH ×2 (09:24→21:31)
[2018-04-26] MEDS: Losartan 25 MG TAB PO SCH (09:24)
[2018-04-26] MEDS: Pantoprazole 40 MG GRANULES PACKET PER TUBE SCH (09:24)
[2018-04-26] MEDS: buPROPion 75 MG TAB PER TUBE SCH ×2 (09:24→21:30)
[2018-04-26] MEDS: Furosemide 40 MG TAB PER TUBE SCH (09:25)
[2018-04-26] MEDS: Nystatin Powder 15 GM BOT TOP SCH ×2 (09:25→21:31)
[2018-04-26] MEDS: Amiodarone 200 MG TAB PO SCH (09:25)
--- NOTE | 2018-04-26 14:07 | PRG ---
DATE OF SERVICE: 04/26/2018 SERVICE: Pulmonary Medicine. INTERVAL HISTORY: The patient is doing great from a respiratory standpoint. He is breathing comfort ably. No complaints of chest pain, nausea, vomiting, fevers or chills. Otherwise, she is in her [facility] state of health. There were no overnight events. OBJECTIVE: VITAL SIGNS: Afebrile, pulse 76, blood pressure 98/70, respirations 20, saturation 100% on 28% FiO2. GENERAL: The patient is awake, alert, no apparent distress. LUNGS: Decent air entry. There is no prolonged expiratory phase. Adventitious sounds really cannot be appreciated, but body habitus excludes accurate evaluation. HEART: Normal rate, regular. ABDOMEN: Soft, nontender, nondistended. Bowel sounds are positive. MUSCULOSKELETAL: No cyanosis or clubbing. There is 1+ pitting in the bilateral lower extremities. NEUROLOGIC: Grossly nonfocal. ASSESSMENT: 1. Chronic hypoxic and hypercapnic respiratory failure. 2. Obstructive sleep apnea status post tracheostomy. 3. Obesity hypoventilation syndrome. 4. Deconditioning. DISCUSSION AND PLAN: We will try to move her out to the floor. We will continue her mobilization ef forts. Once she is strong enough to move around under her own strength, she will be stable for trans ition out of the hospital. That being said, she will stay with us until this occurs because she is u nfunded. Pulmonary will continue to follow.
[2018-04-26] MEDS ORDERED: Guaifenesin DM 100-10/5 ML UDCUP PER TUBE SCH (21:00)
[2018-04-27 06:11] LABS: Anion Gap 11 mmol/L (10-20); BUN (Urea Nitrogen) 16 mg/dL (9.8-20.1); Calc. Creatinine Clearance 190 mL/min (70-130); Calcium 8.8 mg/dL (7.8-10.44); Carbon Dioxide 33 mmol/L (23-31); Chloride 93 mmol/L (98-107); Estimated GFR-MDRD 77; Glucose 79 mg/dL (80-115); Magnesium 1.6 mg/dL (1.6-2.6); Phosphorus 3.7 mg/dL (2.3-4.7); Potassium 4.1 mmol/L (3.5-5.1); Sodium 133 mmol/L (136-145)
[2018-04-27 06:28] LABS: Anisocytosis SLIGHT = 6-15 cells (100X) (0-5/hpf); Band 6 % (5-11); Eosinophils 19 % (0-10); Hemoglobin 10.5 g/dL (12.0-16.0); Lymphocytes 18 % (21-51); MDiff Complete? YES; Mean Corpuscular HGB CONC 30.2 g/dL (32.0-36.0); Mean Corpuscular Hemoglobin 27.2 pg (27.0-31.0); Mean Platelet Volume 8.6 fL (7.4-10.4); Monocytes 17 % (0-10); Myelocyte 1 % (0-0); Neutrophil 39 % (42-75); PLT Morphology Comment Appears Decreased; Platelet Count 105 thou/uL (130-400); RBC Distribution Width 20.7 % (11.5-14.5); Red Blood Cell (RBC) Count 3.87 mill/uL (4.20-5.40)
--- NOTE | 2018-04-27 08:46 | PRG ---
DATE OF SERVICE: 04/27/2018 The patient was moved up to the floor yesterday. She seems to be doing well. PHYSICAL EXAMINATION: VITAL SIGNS: Temperature is 98.1, pulse 95, respirations 18, O2 sat 100% on 8 liters, blood pressure 115/67. HEENT: Unremarkable. NECK: No JVD. Trach in good position. LUNGS: Clear. CARDIAC: S1 and S2 regular. ABDOMEN: Soft, obese, nontender. EXTREMITIES: No edema. LABORATORY DATA: White blood cell count 5, hematocrit 34.9, platelet count 105. Sodium 132, potassi um 4.1, chloride 93, CO2 33, BUN 16, creatinine 0.7, glucose 79. ASSESSMENT: 1. Chronic respiratory failure secondary to obesity hypoventilation syndrome. 2. Severe deconditioning. RECOMMENDATIONS: This patient is probably about as good as she is going to get from a functional sta ndpoint. I think we need to begin making arrangements for her to go home with her son, just making s ure that he has some kind of help to take care of her. She needs to continue on the Lasix as she is doing. No other recommendations at this time.
[2018-04-27] MEDS ORDERED: traMADol HCl 50 MG TAB PO PRN ×2 (09:11→09:12)
[2018-04-27] MEDS: Apixaban 5 MG TAB PO SCH ×2 (09:48→21:10)
[2018-04-27] MEDS: Losartan 25 MG TAB PO SCH (09:49)
[2018-04-27] MEDS: Furosemide 40 MG TAB PER TUBE SCH (09:49)
[2018-04-27] MEDS: Amiodarone 200 MG TAB PO SCH (09:50)
[2018-04-27] MEDS: Nystatin Powder 15 GM BOT TOP SCH ×2 (09:50→21:13)
[2018-04-27] MEDS: buPROPion 75 MG TAB PER TUBE SCH (09:50)
[2018-04-27] MEDS: Acetaminophen 650 MG/20.3 ML UDCUP PER TUBE PRN (10:22)
[2018-04-27] MEDS ORDERED: Senokot 8.6 MG TAB PO PRN (14:29)
[2018-04-27] MEDS: Pantoprazole 40 MG GRANULES PACKET PER TUBE SCH (15:43)
--- NOTE | 2018-04-27 17:13 | PDOC.PN ---
- Subjective Encounter Start Date: 04/27/18 Encounter Start Time: 15:00 DENIES ANY COMPLAINTS. UNDERSTANDS THE PLAN OF CARE. - Objective Resuscitation Status: Resuscitation Status FULL:Full Resuscitation MAR Reviewed: Yes Vital Signs & Weight: Vital Signs (12 hours) Temp Pulse Resp BP Pulse Ox 04/27/18 12:56 89 16 99 04/27/18 11:55 97.9 F 93 20 155/97 H 100 04/27/18 08:00 97.7 F 97 20 100 04/27/18 07:59 97.7 F 97 20 154/96 H 100 04/27/18 06:34 95 18 100 Weight Admit Weight 600 lb Weight 342 lb 1.6 oz Most Recent Monitor Data Heart Rate from ECG 73 NIBP 109/61 NIBP BP-Mean 72 Respiration from ECG 29 SpO2 94 I&O: 04/26/18 04/27/18 04/28/18 06:59 06:59 06:59 Intake Total 1130 1080 240 Output Total 1900 2150 Balance -770 -1070 240 Result Diagrams: 04/27/18 04:26 04/27/18 04:26 Phys Exam - Physical Examination Constitutional: NAD MORBID OBESITY HEENT: PERRLA, moist MMs TRACH Respiratory: no wheezing, no rales, no rhonchi Cardiovascular: RRR, no significant murmur, no rub Gastrointestinal: soft, non-tender, no distention, positive bowel sounds 2-3+ EDEMA B LE'S. Neurological: non-focal Psychiatric: normal affect Dx/Plan (1) Acute and chronic respiratory failure Code(s): J96.20 - ACUTE AND CHR RESP FAILURE, UNSP W HYPOXIA OR HYPERCAPNIA Status: Chronic Qualifiers: Respiratory failure complication: hypoxia and hypercapnia Qualified Code(s) : J96.21 - Acute and chronic respiratory failure with hypoxia; J96.22 - Acute and chronic respiratory failure with hypercapnia; J96.22 - Acute and chronic respiratory failure with hypercapnia; J96.22 - Acute and chronic respiratory failure with hypercapnia Comment: Stable on trach collar. (2) S/P percutaneous endoscopic gastrostomy (PEG) tube placement Code(s): Z93.1 - GASTROSTOMY STATUS Status: Deleted Plan: NOW TOLERATING PO'S. CONVERTING MEDS TO PO. WILL NOT ANTICIPATE REMOVING THE PEG FOR A WHILE. Comment: Had procedure on 03/09/18. Stable. (3) Status post tracheostomy Code(s): Z93.0 - TRACHEOSTOMY STATUS Status: Deleted Comment: Had procedure on 03/09/18. Stable. (4) Thrombocytopenia Code(s): D69.6 - THROMBOCYTOPENIA, UNSPECIFIED Status: Chronic Comment: STABLE (5) Acute on chronic diastolic (congestive) heart failure Code(s): I50.33 - ACUTE ON CHRONIC DIASTOLIC (CONGESTIVE) HEART FAILURE Status : Chronic (6) Afib Code(s): I48.91 - UNSPECIFIED ATRIAL FIBRILLATION Status: Chronic Qualifiers: Atrial fibrillation type: paroxysmal Qualified Code(s): I48.0 - Paroxysmal atrial fibrillation Comment: Rate controlled. Continue Eliquis, ASA and Amiodarone. (7) Chronic diastolic CHF (congestive heart failure), NYHA class 3 Code(s): I50.32 - CHRONIC DIASTOLIC (CONGESTIVE) HEART FAILURE Status: Chronic Comment: Stable. Diuretics initially held 2/2 azotemia. Will be given PRN. (8) Debility Code(s): R53.81 - OTHER MALAISE Status: Chronic Plan: PROFOUND DEBILITY. WAS ABLE TO STAND WITH PT. CONTINUE TO WORK WITH PT. - Plan * HENRIQUE CAME OUT TODAY. WILL GIVE HER THE OPPORTUNITY TO VOID WITHOUT IT. WOULD BE BETTER TO HAVE IT OUT IN THE LONG-TERM. * DISCUSSED WITH CM. SHE IS GETTING CLOSE TO DISCHARGE. SHE WILL LIKELY HAVE SOME NEEDS FOR EQUIPMENT AT HOME, BUT SHE DOES NOT HAVE RESOURCES. PLAN IS TO GO TO HER SON'S HOME.
[2018-04-27] MEDS: buPROPion 75 MG TAB PO SCH (21:10)
[2018-04-27] MEDS: Guaifenesin DM 100-10/5 ML UDCUP PO SCH (21:11)
[2018-04-28] MEDS: Acetaminophen 650 MG/20.3 ML UDCUP PO PRN (06:38)
--- NOTE | 2018-04-28 08:38 | PRG ---
DATE OF SERVICE: 04/28/2018 SUBJECTIVE: The patient is doing reasonably well, had no acute complaints. PHYSICAL EXAMINATION: VITAL SIGNS: Temperature 97.9, pulse 88, blood pressure last measured 120/68, 90% on 5 liters. HEENT: Unremarkable. NECK: Trach in good position. LUNGS: Clear. CARDIAC: S1 and S2 regular. ABDOMEN: Soft, obese, nontender. EXTREMITIES: No edema. LABORATORY DATA: No labs were done today. ASSESSMENT: No change in clinical status - see yesterday's note. PLAN: Awaiting placement. Continue rehab.
[2018-04-28] MEDS ORDERED: Pantoprazole 40 MG GRANULES PACKET PO SCH (09:00)
[2018-04-28] MEDS: Furosemide 40 MG TAB PO SCH (09:37)
[2018-04-28] MEDS: Nystatin Powder 15 GM BOT TOP SCH ×2 (09:37→20:12)
[2018-04-28] MEDS: Apixaban 5 MG TAB PO SCH (09:37)
[2018-04-28] MEDS: buPROPion 75 MG TAB PO SCH ×2 (09:37→20:07)
[2018-04-28] MEDS: Amiodarone 200 MG TAB PO SCH (09:37)
[2018-04-28] MEDS: Losartan 25 MG TAB PO SCH (09:37)
--- NOTE | 2018-04-28 15:43 | PDOC.PN ---
- Subjective Encounter Start Date: 04/28/18 Encounter Start Time: 14:00 Doing well. Was able to void after Tolbert out. Standing with PT several times today. Limited by right knee pain. - Objective Resuscitation Status: Resuscitation Status FULL:Full Resuscitation Vital Signs & Weight: Vital Signs (12 hours) Temp Pulse Pulse Pulse Pulse Resp BP 04/28/18 13:15 79 80 79 114/69 04/28/18 11:57 79 16 04/28/18 08:40 78 79 75 113/69 04/28/18 08:30 97.5 F L 71 16 04/28/18 08:00 97.5 F L 71 16 04/28/18 06:05 88 18 BP Pulse Ox Pulse Ox Pulse Ox Pulse Ox 04/28/18 13:15 100 99 100 04/28/18 11:57 98 04/28/18 08:40 96 99 100 04/28/18 08:30 113/69 100 04/28/18 08:00 100 04/28/18 06:05 99 Weight Admit Weight 600 lb Weight 342 lb 1.6 oz Most Recent Monitor Data Heart Rate from ECG 73 NIBP 109/61 NIBP BP-Mean 72 Respiration from ECG 29 SpO2 94 I&O: 04/27/18 04/28/18 04/29/18 06:59 06:59 06:59 Intake Total 1080 840 400 Output Total 2150 775 Balance -1070 65 400 Result Diagrams: 04/27/18 04:26 04/27/18 04:26 Phys Exam - Physical Examination Constitutional: NAD Trach'd HEENT: oral pharynx no lesions Neck: no JVD, supple Trach with collar Respiratory: no wheezing, no rales, no rhonchi Upper airway noise. Cardiovascular: RRR, no significant murmur, no rub Gastrointestinal: soft, non-tender, no distention, positive bowel sounds Massive peripheral edema with pendulous pannus and chronic skin changes LE' Neurological: non-focal Psychiatric: normal affect Dx/Plan (1) Acute and chronic respiratory failure Code(s): J96.20 - ACUTE AND CHR RESP FAILURE, UNSP W HYPOXIA OR HYPERCAPNIA Status: Chronic Qualifiers: Respiratory failure complication: hypoxia and hypercapnia Qualified Code(s) : J96.21 - Acute and chronic respiratory failure with hypoxia; J96.22 - Acute and chronic respiratory failure with hypercapnia; J96.22 - Acute and chronic respiratory failure with hypercapnia; J96.22 - Acute and chronic respiratory failure with hypercapnia Plan: Improved. Now on trach collar. Comment: Stable on trach collar. (2) S/P percutaneous endoscopic gastrostomy (PEG) tube placement Code(s): Z93.1 - GASTROSTOMY STATUS Status: Deleted Plan: Taking po's. Maintain the PEG for now. Comment: Had procedure on 03/09/18. Stable. (3) Status post tracheostomy Code(s): Z93.0 - TRACHEOSTOMY STATUS Status: Deleted Plan: Tolerating well. Continue trach care. Comment: Had procedure on 03/09/18. Stable. (4) Thrombocytopenia Code(s): D69.6 - THROMBOCYTOPENIA, UNSPECIFIED Status: Chronic Comment: STABLE (5) Acute on chronic diastolic (congestive) heart failure Code(s): I50.33 - ACUTE ON CHRONIC DIASTOLIC (CONGESTIVE) HEART FAILURE Status : Chronic (6) Afib Code(s): I48.91 - UNSPECIFIED ATRIAL FIBRILLATION Status: Chronic Qualifiers: Atrial fibrillation type: paroxysmal Qualified Code(s): I48.0 - Paroxysmal atrial fibrillation Comment: Rate controlled. Continue Eliquis, ASA and Amiodarone. (7) Chronic diastolic CHF (congestive heart failure), NYHA class 3 Code(s): I50.32 - CHRONIC DIASTOLIC (CONGESTIVE) HEART FAILURE Status: Chronic Comment: Stable. Diuretics initially held 2/2 azotemia. Will be given PRN. (8) Debility Code(s): R53.81 - OTHER MALAISE Status: Chronic Plan: Continue to work with PT. Improving. - Plan * Disposition issue. * Continue work with PT. * Has three son's in their 20's who work full-time and live in [place]. She needs someone available to assist her 26/05.
[2018-04-28] MEDS: Guaifenesin DM 100-10/5 ML UDCUP PO SCH (20:07)
[2018-04-29] MEDS: Acetaminophen 650 MG/20.3 ML UDCUP PO PRN (06:39)
[2018-04-29] MEDS: Furosemide 40 MG TAB PO SCH (08:23)
[2018-04-29] MEDS: Amiodarone 200 MG TAB PO SCH (08:24)
[2018-04-29] MEDS: Losartan 25 MG TAB PO SCH (08:24)
[2018-04-29] MEDS: buPROPion 75 MG TAB PO SCH ×2 (08:25→19:50)
[2018-04-29] MEDS: Nystatin Powder 15 GM BOT TOP SCH ×2 (08:47→19:54)
--- NOTE | 2018-04-29 09:25 | PRG ---
DATE OF SERVICE: 04/29/2018 SUBJECTIVE: The patient is doing well, had no acute complaints. OBJECTIVE: VITAL SIGNS: Temperature is 98.1, pulse 74, respiration 16, O2 sat 100%, blood pressure 140/78. HEENT: Unremarkable. NECK: No JVD. Trach in good position. LUNGS: Clear. CARDIAC: S1 and S2 regular. ABDOMEN: Soft. EXTREMITIES: No edema. ASSESSMENT: 1. Obstructive sleep apnea/obesity hypoventilation syndrome. 2. Severe deconditioning. PLAN: Continuing rehabilitation and awaiting placement.
--- NOTE | 2018-04-29 16:38 | PDOC.PN ---
- Subjective Encounter Start Date: 04/29/18 Encounter Start Time: 13:40 DOING WELL. DENIES NEEDS. HAS NOT HAD ANY BLEEDING FROM THE URETHRA SHE HAD YESTERDAY. - Objective Resuscitation Status: Resuscitation Status FULL:Full Resuscitation MAR Reviewed: Yes Vital Signs & Weight: Vital Signs (12 hours) Temp Pulse Pulse Pulse Pulse Resp BP 04/29/18 16:00 97.9 F 75 18 04/29/18 13:15 109 H 111 H 107 H 154/94 H 04/29/18 13:14 97 20 04/29/18 11:00 98.0 F 93 18 04/29/18 08:45 109 H 108 H 98 144/78 H 04/29/18 08:00 98.1 F 75 16 04/29/18 07:09 98.1 F 75 16 04/29/18 06:55 04/29/18 06:52 77 16 BP Pulse Ox Pulse Ox Pulse Ox Pulse Ox 04/29/18 16:00 144/88 H 98 04/29/18 13:15 99 99 96 04/29/18 13:14 98 04/29/18 11:00 154/94 H 93 L 04/29/18 08:45 100 99 100 04/29/18 08:00 100 04/29/18 07:09 144/78 H 100 04/29/18 06:55 100 04/29/18 06:52 100 Weight Admit Weight 600 lb Weight 341 lb Most Recent Monitor Data Heart Rate from ECG 73 NIBP 109/61 NIBP BP-Mean 72 Respiration from ECG 29 SpO2 94 I&O: 04/28/18 04/29/18 04/30/18 06:59 06:59 06:59 Intake Total 840 1160 Output Total 775 Balance 65 1160 Result Diagrams: 04/27/18 04:26 04/27/18 04:26 Phys Exam - Physical Examination Constitutional: NAD HEENT: oral pharynx no lesions Neck: no JVD, supple Respiratory: no wheezing, no rales, no rhonchi, clear to auscultation bilateral Cardiovascular: RRR, no significant murmur, no rub Gastrointestinal: soft, non-tender, no distention Musculoskeletal: no edema Psychiatric: normal affect Skin: normal turgor Dx/Plan (1) Acute and chronic respiratory failure Code(s): J96.20 - ACUTE AND CHR RESP FAILURE, UNSP W HYPOXIA OR HYPERCAPNIA Status: Chronic Qualifiers: Respiratory failure complication: hypoxia and hypercapnia Qualified Code(s) : J96.21 - Acute and chronic respiratory failure with hypoxia; J96.22 - Acute and chronic respiratory failure with hypercapnia; J96.22 - Acute and chronic respiratory failure with hypercapnia; J96.22 - Acute and chronic respiratory failure with hypercapnia Comment: Stable on trach collar. (2) S/P percutaneous endoscopic gastrostomy (PEG) tube placement Code(s): Z93.1 - GASTROSTOMY STATUS Status: Deleted Comment: Had procedure on 03/09/18. NO LONGER BEING USED. TAKING PO'S. (3) Status post tracheostomy Code(s): Z93.0 - TRACHEOSTOMY STATUS Status: Deleted Comment: Had procedure on 03/09/18. Stable. (4) Thrombocytopenia Code(s): D69.6 - THROMBOCYTOPENIA, UNSPECIFIED Status: Chronic Comment: STABLE (5) Acute on chronic diastolic (congestive) heart failure Code(s): I50.33 - ACUTE ON CHRONIC DIASTOLIC (CONGESTIVE) HEART FAILURE Status : Chronic (6) Afib Code(s): I48.91 - UNSPECIFIED ATRIAL FIBRILLATION Status: Chronic Qualifiers: Atrial fibrillation type: paroxysmal Qualified Code(s): I48.0 - Paroxysmal atrial fibrillation Comment: Rate controlled. Continue ASA and Amiodarone. ELIQUIS HELD SECONDARY TO BLEEDING AFTER DUENAS CAME OUT. RESUME IN A DAY OR TWO. (7) Chronic diastolic CHF (congestive heart failure), NYHA class 3 Code(s): I50.32 - CHRONIC DIASTOLIC (CONGESTIVE) HEART FAILURE Status: Chronic Comment: Stable. Diuretics initially held 2/2 azotemia. Will be given PRN. (8) Debility Code(s): R53.81 - OTHER MALAISE Status: Chronic Comment: WORKING WITH PT. MAKING SOME PROGRESS. PLACEMENT ISSUE. - Plan * .
[2018-04-29] MEDS: Guaifenesin DM 100-10/5 ML UDCUP PO SCH (19:50)
[2018-04-30] MEDS: Amiodarone 200 MG TAB PO SCH (08:06)
[2018-04-30] MEDS: buPROPion 75 MG TAB PO SCH ×2 (08:06→21:00)
[2018-04-30] MEDS: Furosemide 40 MG TAB PO SCH (08:06)
[2018-04-30] MEDS: Losartan 25 MG TAB PO SCH (08:06)
--- NOTE | 2018-04-30 09:03 | PRG ---
DATE OF SERVICE: 04/30/2018 The patient is doing well and had no specific complaints. Physical therapy actually stood her up whi layton I was in the room. PHYSICAL EXAMINATION: VITAL SIGNS: On exam temperature is 98.5, pulse 71, respiration 16, O2 sat 97%, blood pressure 118/6 8. HEENT: Unremarkable. NECK: Trach in good position. LUNGS: Clear. CARDIOVASCULAR: S1, S2 regular. ABDOMEN: Soft. EXTREMITIES: Mild edema. ASSESSMENT: 1. Obesity hypoventilation syndrome. 2. Status post trach and PEG. 3. Deconditioning, which is slowly improving. PLAN: Mainly a rehab issue at this point. It is clear that she is starting to progress with physica l therapy. Hopefully, she will be able to go home with her family soon.
[2018-04-30] MEDS: Nystatin Powder 15 GM BOT TOP SCH ×2 (09:55→21:02)
--- NOTE | 2018-04-30 15:06 | PDOC.PN ---
- Subjective Encounter Start Date: 04/30/18 Encounter Start Time: 13:30 - Objective Resuscitation Status: Resuscitation Status FULL:Full Resuscitation MAR Reviewed: Yes Vital Signs & Weight: Vital Signs (12 hours) Temp Pulse Resp BP Pulse Ox 04/30/18 12:20 77 20 04/30/18 12:11 98.7 F 79 18 129/73 95 04/30/18 08:00 98.5 F 71 16 97 04/30/18 07:33 98.5 F 71 16 118/68 97 04/30/18 06:40 79 20 99 04/30/18 04:00 98.0 F 74 20 146/77 H 97 Weight Admit Weight 600 lb Weight 342 lb Most Recent Monitor Data Heart Rate from ECG 73 NIBP 109/61 NIBP BP-Mean 72 Respiration from ECG 29 SpO2 94 I&O: 04/29/18 04/30/18 05/01/18 06:59 06:59 06:59 Intake Total 1160 920 Balance 1160 920 Result Diagrams: 04/27/18 04:26 04/27/18 04:26 Phys Exam - Physical Examination Constitutional: NAD HEENT: PERRLA, oral pharynx no lesions Neck: no JVD Respiratory: no wheezing, no rales, no rhonchi UPPER AIRWAY NOISE. Cardiovascular: RRR, no significant murmur Gastrointestinal: soft, non-tender, no distention, positive bowel sounds Musculoskeletal: no edema, pulses present Neurological: non-focal Psychiatric: normal affect, A&O x 3 Dx/Plan (1) Acute and chronic respiratory failure Code(s): J96.20 - ACUTE AND CHR RESP FAILURE, UNSP W HYPOXIA OR HYPERCAPNIA Status: Chronic Qualifiers: Respiratory failure complication: hypoxia and hypercapnia Qualified Code(s) : J96.21 - Acute and chronic respiratory failure with hypoxia; J96.22 - Acute and chronic respiratory failure with hypercapnia; J96.22 - Acute and chronic respiratory failure with hypercapnia; J96.22 - Acute and chronic respiratory failure with hypercapnia Comment: Stable on trach collar. (2) S/P percutaneous endoscopic gastrostomy (PEG) tube placement Code(s): Z93.1 - GASTROSTOMY STATUS Status: Deleted Comment: Had procedure on 03/09/18. NO LONGER BEING USED. TAKING PO'S. (3) Status post tracheostomy Code(s): Z93.0 - TRACHEOSTOMY STATUS Status: Deleted Comment: Had procedure on 03/09/18. Stable. (4) Thrombocytopenia Code(s): D69.6 - THROMBOCYTOPENIA, UNSPECIFIED Status: Chronic Comment: STABLE (5) Acute on chronic diastolic (congestive) heart failure Code(s): I50.33 - ACUTE ON CHRONIC DIASTOLIC (CONGESTIVE) HEART FAILURE Status : Chronic (6) Afib Code(s): I48.91 - UNSPECIFIED ATRIAL FIBRILLATION Status: Chronic Qualifiers: Atrial fibrillation type: paroxysmal Qualified Code(s): I48.0 - Paroxysmal atrial fibrillation Comment: Rate controlled. Continue ASA and Amiodarone. ELIQUIS HELD SECONDARY TO BLEEDING AFTER DUENAS CAME OUT. RESUMED 04/30. (7) Chronic diastolic CHF (congestive heart failure), NYHA class 3 Code(s): I50.32 - CHRONIC DIASTOLIC (CONGESTIVE) HEART FAILURE Status: Chronic Comment: Stable. Diuretics initially held 2/2 azotemia. Will be given PRN. (8) Debility Code(s): R53.81 - OTHER MALAISE Status: Chronic Comment: WORKING WITH PT. MAKING SOME PROGRESS. PLACEMENT ISSUE. (9) Urethral bleeding Status: Acute Comment: BLEEDING AFTER DUENAS CAME OUT. HELD ELIQUIS. STOPPED. RESUMING ELIQUIS. CONTINUE TO MONITOR. - Plan * CONTINUE TO WORK WITH PT. WORKING ON DISPOSITION.
[2018-04-30] MEDS: Guaifenesin DM 100-10/5 ML UDCUP PO SCH (20:59)
[2018-04-30] MEDS: Apixaban 5 MG TAB PO SCH (21:00)
[2018-05-01] MEDS: Acetaminophen 650 MG/20.3 ML UDCUP PO PRN (05:59)
[2018-05-01] MEDS: Apixaban 5 MG TAB PO SCH ×2 (08:18→20:38)
[2018-05-01] MEDS: Losartan 25 MG TAB PO SCH (08:19)
[2018-05-01] MEDS: Amiodarone 200 MG TAB PO SCH (08:19)
[2018-05-01] MEDS: Furosemide 40 MG TAB PO SCH (08:19)
[2018-05-01] MEDS: buPROPion 75 MG TAB PO SCH ×2 (08:20→20:38)
[2018-05-01] MEDS: Nystatin Powder 15 GM BOT TOP SCH ×2 (08:23→20:40)
[2018-05-01] MEDS: Guaifenesin DM 100-10/5 ML UDCUP PO SCH (20:37)
--- NOTE | 2018-05-01 20:41 | PDOC.PN ---
- Subjective Encounter Start Date: 05/01/18 Encounter Start Time: 11:00 FEELING A LITTLE DOWN TODAY. SHE HAS CONCERNS ABOUT BEING A BURDEN ON HER CHILDREN. HAS A NEW LARGE BRUISE ON THE LEFT UPPER ARM. - Objective Resuscitation Status: Resuscitation Status FULL:Full Resuscitation Vital Signs & Weight: Vital Signs (12 hours) Temp Pulse Resp BP Pulse Ox 05/01/18 19:30 98.3 F 77 16 122/61 92 L 05/01/18 19:01 78 16 98 05/01/18 16:46 98 F 79 16 135/70 94 L 05/01/18 16:40 98 F 79 16 94 L 05/01/18 14:08 76 16 97 05/01/18 11:55 98.4 F 77 22 H 129/71 93 L Weight Admit Weight 600 lb Weight 342 lb Most Recent Monitor Data Heart Rate from ECG 73 NIBP 109/61 NIBP BP-Mean 72 Respiration from ECG 29 SpO2 94 I&O: 04/30/18 05/01/18 05/02/18 06:59 06:59 06:59 Intake Total 920 1040 Balance 920 1040 Result Diagrams: 04/27/18 04:26 04/27/18 04:26 Phys Exam - Physical Examination Constitutional: NAD UPPER AIRWAY RALES. Cardiovascular: RRR, no significant murmur Gastrointestinal: soft, non-tender, no distention, positive bowel sounds CHRONIC STASIS DERMATITIS AND EDEMA LE'S. 3-4 CM HEMATOMA OF THE MEDIAL, PROXIMAL L UPPER ARM. Psychiatric: normal affect Deviation from normal: STASIS DERMATITIS LE'S Dx/Plan (1) Acute and chronic respiratory failure Code(s): J96.20 - ACUTE AND CHR RESP FAILURE, UNSP W HYPOXIA OR HYPERCAPNIA Status: Chronic Qualifiers: Respiratory failure complication: hypoxia and hypercapnia Qualified Code(s) : J96.21 - Acute and chronic respiratory failure with hypoxia; J96.22 - Acute and chronic respiratory failure with hypercapnia; J96.22 - Acute and chronic respiratory failure with hypercapnia; J96.22 - Acute and chronic respiratory failure with hypercapnia Comment: Stable on trach collar. (2) S/P percutaneous endoscopic gastrostomy (PEG) tube placement Code(s): Z93.1 - GASTROSTOMY STATUS Status: Deleted Comment: Had procedure on 03/09/18. NO LONGER BEING USED. TAKING PO'S. (3) Status post tracheostomy Code(s): Z93.0 - TRACHEOSTOMY STATUS Status: Deleted Comment: Had procedure on 03/09/18. Stable. (4) Thrombocytopenia Code(s): D69.6 - THROMBOCYTOPENIA, UNSPECIFIED Status: Chronic Comment: STABLE (5) Acute on chronic diastolic (congestive) heart failure Code(s): I50.33 - ACUTE ON CHRONIC DIASTOLIC (CONGESTIVE) HEART FAILURE Status : Chronic (6) Afib Code(s): I48.91 - UNSPECIFIED ATRIAL FIBRILLATION Status: Chronic Qualifiers: Atrial fibrillation type: paroxysmal Qualified Code(s): I48.0 - Paroxysmal atrial fibrillation Comment: Rate controlled. Continue ASA and Amiodarone. ELIQUIS HELD SECONDARY TO BLEEDING AFTER DUENAS CAME OUT. RESUMED 04/30. (7) Chronic diastolic CHF (congestive heart failure), NYHA class 3 Code(s): I50.32 - CHRONIC DIASTOLIC (CONGESTIVE) HEART FAILURE Status: Chronic Comment: Stable. Diuretics initially held 2/2 azotemia. Will be given PRN. (8) Debility Code(s): R53.81 - OTHER MALAISE Status: Chronic Comment: WORKING WITH PT. MAKING SOME PROGRESS. PLACEMENT ISSUE. (9) Urethral bleeding Status: Resolved Comment: BLEEDING AFTER DUENAS CAME OUT. HELD ELIQUIS. STOPPED. RESUMING ELIQUIS. CONTINUE TO MONITOR. (10) Hematoma Code(s): T14.8XXA - OTHER INJURY OF UNSPECIFIED BODY REGION, INITIAL ENCOUNTER Status: Acute Plan: MAY BE RELATED TO THE ELIQUIS. DEBILITATED SHE IS, SHE NEEDS MUCH HELP WITH LIFTING. MAY INADVERTENTLY CAUSE SOME BRUISING. NEEDS TO STAY ON IT DUE TO A-FIB ALTHOUGH SHE SEEMS TO BE IN SINUS AND TO HELP WITH DVT PROPHYLAXIS. - Plan * .
[2018-05-02 05:04] LABS: Anion Gap 8 mmol/L (10-20); BUN (Urea Nitrogen) 11 mg/dL (9.8-20.1); Calc. Creatinine Clearance 181 mL/min (70-130); Calcium 8.7 mg/dL (7.8-10.44); Carbon Dioxide 34 mmol/L (23-31); Chloride 95 mmol/L (98-107); Estimated GFR-MDRD 73; Glucose 79 mg/dL (80-115); Potassium 3.9 mmol/L (3.5-5.1); Sodium 133 mmol/L (136-145)
[2018-05-02 05:07] LABS: Band 8 % (5-11); Eosinophils 11 % (0-10); Hemoglobin 10.6 g/dL (12.0-16.0); Lymphocytes 19 % (21-51); MDiff Complete? YES; Mean Corpuscular HGB CONC 31.1 g/dL (32.0-36.0); Mean Corpuscular Hemoglobin 28.1 pg (27.0-31.0); Mean Corpuscular Volume 90.4 fL (78.0-98.0); Mean Platelet Volume 8.1 fL (7.4-10.4); Monocytes 15 % (0-10); Neutrophil 44 % (42-75); PLT Morphology Comment Appears Adequate; Platelet Count 126 thou/uL (130-400); RBC Distribution Width 19.8 % (11.5-14.5); Red Blood Cell (RBC) Count 3.76 mill/uL (4.20-5.40); White Blood Cell (WBC) Count 5.1 thou/uL (4.8-10.8)
[2018-05-02] MEDS ORDERED: Clopidogrel Bisulfate 75 MG TAB ONE (10:03)
[2018-05-02] MEDS: Acetaminophen 650 MG/20.3 ML UDCUP PO PRN (10:07)
[2018-05-02] MEDS: Apixaban 5 MG TAB PO SCH ×2 (10:09→21:01)
[2018-05-02] MEDS: buPROPion 75 MG TAB PO SCH ×2 (10:10→21:01)
[2018-05-02] MEDS: Amiodarone 200 MG TAB PO SCH (10:11)
[2018-05-02] MEDS: Losartan 25 MG TAB PO SCH (10:11)
[2018-05-02] MEDS: Furosemide 40 MG TAB PO SCH (10:12)
[2018-05-02] MEDS: Nystatin Powder 15 GM BOT TOP SCH ×2 (10:12→21:02)
--- NOTE | 2018-05-02 14:35 | PRG ---
DATE OF SERVICE: 05/02/2018 SUBJECTIVE: Obese patient with trach in place. She is complaining of some phlegm issues this piter garcia. OBJECTIVE: VITAL SIGNS: Sats are 90% on trach collar, respirations 18, temperature 98, blood pressure 120/75. CHEST: Anterior rhonchi. CARDIAC: Normal S1, S2. No gallops. ABDOMEN: Soft, no masses. LABORATORY DATA: Electrolytes and CBC unremarkable. IMPRESSION: Morbid obesity, trach, cardiac arrhythmias. PLAN: PT and supportive care, neb treatments. We will follow.
--- NOTE | 2018-05-02 14:55 | PDOC.PN ---
- Subjective Encounter Start Date: 05/02/18 Encounter Start Time: 13:20 DOING WELL. NO COMPLAINTS. NO BLOOD FROM THE URETHRA. LEFT ARM HEMATOMA DOES NOT HURT. - Objective Resuscitation Status: Resuscitation Status FULL:Full Resuscitation Vital Signs & Weight: Vital Signs (12 hours) Temp Pulse Resp BP Pulse Ox 05/02/18 13:38 77 18 97 05/02/18 08:00 98.2 F 77 18 92 L 05/02/18 07:27 98.2 F 77 18 122/75 92 L 05/02/18 06:56 78 18 92 L 05/02/18 04:27 98.4 F Weight Admit Weight 600 lb Weight 342 lb Most Recent Monitor Data Heart Rate from ECG 73 NIBP 109/61 NIBP BP-Mean 72 Respiration from ECG 29 SpO2 94 I&O: 05/01/18 05/02/18 05/03/18 06:59 06:59 06:59 Intake Total 1040 480 Balance 1040 480 Result Diagrams: 05/02/18 04:26 05/02/18 04:26 Phys Exam - Physical Examination Constitutional: NAD Respiratory: no wheezing, no rales, no rhonchi, clear to auscultation bilateral UPPER AIRWAY NOISE Cardiovascular: RRR, no significant murmur Gastrointestinal: soft, non-tender, no distention, positive bowel sounds Musculoskeletal: no edema Neurological: non-focal Psychiatric: normal affect, A&O x 3 Dx/Plan (1) Acute and chronic respiratory failure Code(s): J96.20 - ACUTE AND CHR RESP FAILURE, UNSP W HYPOXIA OR HYPERCAPNIA Status: Chronic Qualifiers: Respiratory failure complication: hypoxia and hypercapnia Qualified Code(s) : J96.21 - Acute and chronic respiratory failure with hypoxia; J96.22 - Acute and chronic respiratory failure with hypercapnia; J96.22 - Acute and chronic respiratory failure with hypercapnia; J96.22 - Acute and chronic respiratory failure with hypercapnia Comment: Stable on trach collar. (2) S/P percutaneous endoscopic gastrostomy (PEG) tube placement Code(s): Z93.1 - GASTROSTOMY STATUS Status: Deleted Comment: Had procedure on 03/09/18. NO LONGER BEING USED. TAKING PO'S. (3) Status post tracheostomy Code(s): Z93.0 - TRACHEOSTOMY STATUS Status: Deleted Comment: Had procedure on 03/09/18. Stable. (4) Thrombocytopenia Code(s): D69.6 - THROMBOCYTOPENIA, UNSPECIFIED Status: Chronic Comment: STABLE (5) Acute on chronic diastolic (congestive) heart failure Code(s): I50.33 - ACUTE ON CHRONIC DIASTOLIC (CONGESTIVE) HEART FAILURE Status : Chronic (6) Afib Code(s): I48.91 - UNSPECIFIED ATRIAL FIBRILLATION Status: Chronic Qualifiers: Atrial fibrillation type: paroxysmal Qualified Code(s): I48.0 - Paroxysmal atrial fibrillation Comment: Rate controlled. Continue ASA and Amiodarone. ELIQUIS HELD SECONDARY TO BLEEDING AFTER DUENAS CAME OUT. RESUMED 04/30. REGULAR NOW. (7) Chronic diastolic CHF (congestive heart failure), NYHA class 3 Code(s): I50.32 - CHRONIC DIASTOLIC (CONGESTIVE) HEART FAILURE Status: Chronic Comment: Stable. Diuretics initially held 2/2 azotemia. Will be given PRN. (8) Debility Code(s): R53.81 - OTHER MALAISE Status: Chronic Comment: WORKING WITH PT. MAKING SOME PROGRESS. PLACEMENT ISSUE. (9) Urethral bleeding Status: Resolved (10) Hematoma Code(s): T14.8XXA - OTHER INJURY OF UNSPECIFIED BODY REGION, INITIAL ENCOUNTER Status: Acute Comment: MILD LUE HEMATOMA. STABLE. LIKELY SECONDARY TO ELIQUIS. (11) Physical debility Code(s): R53.81 - OTHER MALAISE Status: Acute - Plan * CONTINUE WORK WITH PT ON IMPROVING STRENGTH. CM STILL WORKING ON PLACEMENT.
[2018-05-02] MEDS: Guaifenesin DM 100-10/5 ML UDCUP PO SCH (21:01)
[2018-05-03] MEDS: Acetaminophen 650 MG/20.3 ML UDCUP PO PRN (08:51)
[2018-05-03] MEDS: Losartan 25 MG TAB PO SCH (08:53)
[2018-05-03] MEDS: Furosemide 40 MG TAB PO SCH (08:53)
[2018-05-03] MEDS: buPROPion 75 MG TAB PO SCH ×2 (08:53→20:14)
[2018-05-03] MEDS: Apixaban 5 MG TAB PO SCH ×2 (08:54→20:14)
[2018-05-03] MEDS: Amiodarone 200 MG TAB PO SCH (08:54)
[2018-05-03] MEDS: Nystatin Powder 15 GM BOT TOP SCH ×2 (08:55→20:15)
--- NOTE | 2018-05-03 12:32 | PRG ---
DATE OF SERVICE: 05/03/2018 SUBJECTIVE: She is lying in bed with trach collar in place. OBJECTIVE: VITAL SIGNS: 90% sats. Temperature 97, pulse 73, respirations 20, blood pressure is 120/67. She de nied shortness of breath. CHEST: Reveals bilateral rhonchi. CARDIAC: Normal S1, S2. No gallops. ABDOMEN: No masses. IMPRESSION: Morbid obesity, trach. PLAN: PT, await placement.
--- NOTE | 2018-05-03 16:47 | PDOC.PN ---
- Subjective Encounter Start Date: 05/03/18 Encounter Start Time: 16:52 DOING VERY WELL. EXERCISING WITH THERABANDS WITH HER ARMS. WORKING WITH PT. - Objective Resuscitation Status: Resuscitation Status FULL:Full Resuscitation Vital Signs & Weight: Vital Signs (12 hours) Temp Pulse Resp BP Pulse Ox 05/03/18 13:21 75 18 92 L 05/03/18 11:57 98.4 F 97 20 126/82 95 05/03/18 08:00 97.7 F 73 20 93 L 05/03/18 07:29 97.7 F 73 20 120/67 93 L 05/03/18 06:48 79 20 92 L Weight Admit Weight 600 lb Weight 342 lb Most Recent Monitor Data Heart Rate from ECG 73 NIBP 109/61 NIBP BP-Mean 72 Respiration from ECG 29 SpO2 94 I&O: 05/02/18 05/03/18 05/04/18 06:59 06:59 06:59 Intake Total 480 1200 Balance 480 1200 Result Diagrams: 05/02/18 04:26 05/02/18 04:26 Phys Exam - Physical Examination Constitutional: NAD MORBIDLY OBESE. HEENT: PERRLA TRACH COLLAR Respiratory: no wheezing, no rales, no rhonchi, clear to auscultation bilateral Cardiovascular: RRR, no significant murmur, no rub Gastrointestinal: soft, non-tender, no distention, positive bowel sounds PEG Musculoskeletal: no edema Psychiatric: normal affect, A&O x 3 Dx/Plan (1) Acute and chronic respiratory failure Code(s): J96.20 - ACUTE AND CHR RESP FAILURE, UNSP W HYPOXIA OR HYPERCAPNIA Status: Chronic Qualifiers: Respiratory failure complication: hypoxia and hypercapnia Qualified Code(s) : J96.21 - Acute and chronic respiratory failure with hypoxia; J96.22 - Acute and chronic respiratory failure with hypercapnia; J96.22 - Acute and chronic respiratory failure with hypercapnia; J96.22 - Acute and chronic respiratory failure with hypercapnia Comment: Stable on trach collar. (2) S/P percutaneous endoscopic gastrostomy (PEG) tube placement Code(s): Z93.1 - GASTROSTOMY STATUS Status: Deleted Comment: Had procedure on 03/09/18. NO LONGER BEING USED. TAKING PO'S. (3) Status post tracheostomy Code(s): Z93.0 - TRACHEOSTOMY STATUS Status: Deleted Comment: Had procedure on 03/09/18. Stable. (4) Thrombocytopenia Code(s): D69.6 - THROMBOCYTOPENIA, UNSPECIFIED Status: Chronic Comment: STABLE (5) Acute on chronic diastolic (congestive) heart failure Code(s): I50.33 - ACUTE ON CHRONIC DIASTOLIC (CONGESTIVE) HEART FAILURE Status : Chronic (6) Afib Code(s): I48.91 - UNSPECIFIED ATRIAL FIBRILLATION Status: Chronic Qualifiers: Atrial fibrillation type: paroxysmal Qualified Code(s): I48.0 - Paroxysmal atrial fibrillation Comment: Rate controlled. Continue ASA and Amiodarone. ELIQUIS HELD SECONDARY TO BLEEDING AFTER DUENAS CAME OUT. RESUMED 04/30. REGULAR NOW. (7) Chronic diastolic CHF (congestive heart failure), NYHA class 3 Code(s): I50.32 - CHRONIC DIASTOLIC (CONGESTIVE) HEART FAILURE Status: Chronic Comment: Stable. Diuretics initially held 2/2 azotemia. Will be given PRN. (8) Debility Code(s): R53.81 - OTHER MALAISE Status: Chronic Comment: WORKING WITH PT. MAKING SOME PROGRESS. PLACEMENT ISSUE. (9) Urethral bleeding Status: Resolved (10) Hematoma Code(s): T14.8XXA - OTHER INJURY OF UNSPECIFIED BODY REGION, INITIAL ENCOUNTER Status: Acute Comment: MILD LUE HEMATOMA. STABLE. LIKELY SECONDARY TO ELIQUIS. (11) Physical debility Code(s): R53.81 - OTHER MALAISE Status: Acute (12) Morbid obesity Code(s): E66.01 - MORBID (SEVERE) OBESITY DUE TO EXCESS CALORIES Status: Acute Plan: ACCORDING TO THE CHART, SHE HAS LOST SUBSTANTIAL WEIGHT. SHE IS CERTAINLY TRYING HER BEST TO DO SO. (13) Right knee pain Code(s): M25.561 - PAIN IN RIGHT KNEE Status: Acute Plan: UNDOUBTEDLY HAS SOME DJD IN THE KNEE SECONDARY TO THE WEIGHT. LIMITING HER ABILITY TO GET UP WITH PT. - Plan * CONTINUE TO WORK ON MOBILITY WITH PT. PLACEMENT ISSUE. HAS THREE SONS IN THEIR 20'S WHO LIVE IN [place]. THEY WORK DAYS AND SHE IS NOT CAPABLE OF BEING HOME ALONE. CM WORKING ON IT.
[2018-05-03] MEDS: Guaifenesin DM 100-10/5 ML UDCUP PO SCH (20:14)
[2018-05-04 04:35] LABS: Hemoglobin 11.1 g/dL (12.0-16.0); Platelet Count 133 thou/uL (130-400)
[2018-05-04] MEDS: Furosemide 40 MG TAB PO SCH (08:41)
[2018-05-04] MEDS: Amiodarone 200 MG TAB PO SCH (08:41)
[2018-05-04] MEDS: Apixaban 5 MG TAB PO SCH ×2 (08:42→19:59)
[2018-05-04] MEDS: Losartan 25 MG TAB PO SCH (08:42)
[2018-05-04] MEDS: buPROPion 75 MG TAB PO SCH ×2 (08:42→20:00)
[2018-05-04] MEDS: Nystatin Powder 15 GM BOT TOP SCH ×2 (08:43→20:01)
[2018-05-04] MEDS: Acetaminophen 650 MG/20.3 ML UDCUP PO PRN (10:37)
[2018-05-04] MEDS: Guaifenesin DM 100-10/5 ML UDCUP PO SCH (20:00)
[2018-05-05] MEDS: buPROPion 75 MG TAB PO SCH ×2 (08:51→20:23)
[2018-05-05] MEDS: Losartan 25 MG TAB PO SCH (08:53)
[2018-05-05] MEDS: Amiodarone 200 MG TAB PO SCH (08:54)
[2018-05-05] MEDS: Apixaban 5 MG TAB PO SCH ×2 (08:55→20:22)
[2018-05-05] MEDS: Furosemide 40 MG TAB PO SCH (08:55)
[2018-05-05] MEDS: Nystatin Powder 15 GM BOT TOP SCH ×2 (09:00→20:23)
--- NOTE | 2018-05-05 10:09 | PDOC.PN ---
- Subjective Encounter Start Date: 05/04/18 Encounter Start Time: 13:00 PAtient is seen today, No Family meber Around, Pt is Able to speak with Trach, She is feeling fine, trying with PT/OT to transfer to chair. - Objective Resuscitation Status: Resuscitation Status FULL:Full Resuscitation MAR Reviewed: Yes Vital Signs & Weight: Vital Signs (12 hours) Temp Pulse Resp BP Pulse Ox 05/05/18 07:10 97.8 F 78 20 118/69 98 05/05/18 07:08 73 16 05/04/18 23:57 78 16 92 L Weight Admit Weight 600 lb Weight 341 lb 9.6 oz Most Recent Monitor Data Heart Rate from ECG 73 NIBP 109/61 NIBP BP-Mean 72 Respiration from ECG 29 SpO2 94 I&O: 05/04/18 05/05/18 05/06/18 06:59 06:59 06:59 Intake Total 1220 1555 Balance 1220 1555 Result Diagrams: 05/04/18 04:11 05/04/18 04:11 Radiology Reviewed by me: Yes Phys Exam - Physical Examination HEENT: PERRLA, moist MMs Neck: no nodes, no JVD, supple Respiratory: no wheezing, no rales Cardiovascular: RRR, no significant murmur Gastrointestinal: soft, non-tender Lymphedema of Both lower extremitis. Neurological: non-focal, normal sensation Lymphedema. Psychiatric: normal affect Dx/Plan (1) Acute idiopathic thrombocytopenic purpura Code(s): D69.3 - IMMUNE THROMBOCYTOPENIC PURPURA Status: Deleted Comment: resolved. (2) Acute and chronic respiratory failure Code(s): J96.20 - ACUTE AND CHR RESP FAILURE, UNSP W HYPOXIA OR HYPERCAPNIA Status: Chronic Qualifiers: Respiratory failure complication: hypoxia and hypercapnia Qualified Code(s) : J96.21 - Acute and chronic respiratory failure with hypoxia; J96.22 - Acute and chronic respiratory failure with hypercapnia; J96.22 - Acute and chronic respiratory failure with hypercapnia; J96.22 - Acute and chronic respiratory failure with hypercapnia Comment: Stable on trach collar. (3) Acute on chronic diastolic (congestive) heart failure Code(s): I50.33 - ACUTE ON CHRONIC DIASTOLIC (CONGESTIVE) HEART FAILURE Status : Chronic (4) Hypokalemia Code(s): E87.6 - HYPOKALEMIA Status: Deleted Comment: continue electrolyte replacement protocol (5) Morbid obesity with BMI of 70 and over, adult Code(s): E66.01 - MORBID (SEVERE) OBESITY DUE TO EXCESS CALORIES; Z68.45 - BODY MASS INDEX (BMI) 70 OR GREATER, ADULT Status: Deleted (6) Pickwickian syndrome Code(s): E66.2 - MORBID (SEVERE) OBESITY WITH ALVEOLAR HYPOVENTILATION Status : Chronic Comment: s/p trach collar. (7) Pulmonary embolism Code(s): I26.99 - OTHER PULMONARY EMBOLISM WITHOUT ACUTE COR PULMONALE Status : Deleted Comment: resolved. On DVT prophyalxis. (8) Afib Code(s): I48.91 - UNSPECIFIED ATRIAL FIBRILLATION Status: Chronic Qualifiers: Atrial fibrillation type: paroxysmal Qualified Code(s): I48.0 - Paroxysmal atrial fibrillation Comment: Rate controlled. Continue ASA and Amiodarone. ELIQUIS HELD SECONDARY TO BLEEDING AFTER DUENAS CAME OUT. RESUMED 04/30. REGULAR NOW. - Plan cont current plan of care, PT/OT, director social, respiratory therapy, incentive spirometry, out of bed/ambulate, DVT proph w/lovenox * . Review of Systems - Review of Systems Constitutional: weakness, malaise Eyes: negative: Pain, Vision Change, Conjunctivae Inflammation, Eyelid Inflammation, Redness, Other ENT: negative: Ear Pain, Ear Discharge, Nose Pain, Nose Discharge, Nose Congestion, Mouth Pain, Mouth Swelling, Throat Pain, Throat Swelling, Other Respiratory: negative: Cough, Dry, Shortness of Breath, Hemoptysis, SOB with Excertion, Pleuritic Pain, Sputum, Wheezing Cardiovascular: negative: chest pain, palpitations, orthopnea, paroxysmal nocturnal dyspnea, edema, light headedness, other Gastrointestinal: negative: Nausea, Vomiting, Abdominal Pain, Diarrhea, Constipation, Melena, Hematochezia, Other Genitourinary: negative: Dysuria, Frequency, Incontinence, Hematuria, Retention , Other - Medications/Allergies Allergies/Adverse Reactions: Allergies Allergy/AdvReac Type Severity Reaction Status Date / Time No Known Drug Allergies Allergy Verified 03/08/18 14:16 Medications: Current Medications Acetaminophen (Tylenol Elixir) 1,000 mg PO Q6H PRN PRN Reason: Headache/Fever or Pain Last Admin: 05/04/18 10:37 Dose: 1,000 mg Al Hydroxide/Mg Hydroxide (Maalox) 15 ml PER TUBE Q4H PRN PRN Reason: Heartburn or Indigestion Albuterol/Ipratropium (Duoneb) 3 ml NEB Q2PD-LA [facility] Last Admin: 05/05/18 07:08 Dose: 3 ml Amiodarone HCl (Cordarone) 200 mg PO DAILY [facility] Last Admin: 05/05/18 08:54 Dose: 200 mg Lipase/Protease/[place]ylase ([place] [id number]) 1 cap FS .PER PROTOCOL PRN PRN Reason: TUBE OCCLUSION PROTOCOL Apixaban (Eliquis) 5 mg PO BID [facility] Last Admin: 05/05/18 08:55 Dose: 5 mg Artificial Tears (Tears Renewed 15ml Bottle) 0 drop EA EYE PRN PRN PRN Reason: Dry Eyes Aspirin (Aspirin Chewable) 81 mg PO DAILY [facility] Last Admin: 05/05/18 08:52 Dose: 81 mg Bupropion HCl (Wellbutrin) 150 mg PO BID [facility] Last Admin: 05/05/18 08:51 Dose: 150 mg Clonidine (Catapres) 0.1 mg PO Q4H PRN PRN Reason: Systolic BP > 180 Last Admin: 03/20/18 21:05 Dose: 0.1 mg Furosemide (Lasix) 40 mg PO DAILY-AC [facility] Last Admin: 05/05/18 08:55 Dose: 40 mg Guaifenesin/Dextromethorphan (Robitussin Dm) 10 ml PO 2100 [facility] Last Admin: 05/04/18 20:00 Dose: 10 ml Hydralazine HCl (Apresoline) 10 mg SLOW IVP Q4H PRN PRN Reason: Systolic BP > 180 Last Admin: 03/14/18 17:06 Dose: 10 mg Loperamide HCl (Imodium) 2 mg PER TUBE PRN PRN PRN Reason: Diarrhea/Loose Stools Losartan Potassium (Cozaar) 12.5 mg PO DAILY [facility] Last Admin: 05/05/18 08:53 Dose: 12.5 mg Magnesium Hydroxide (Milk Of Magnesium) 30 ml PER TUBE DAILYPRN PRN PRN Reason: Constipation Mineral Oil/White Petrolatum (Eucerin Cream) 0 gm TOP BIDPRN PRN PRN Reason: Dry Skin Nystatin (Mycostatin Powder) 30 gm TOP BID [facility] Last Admin: 05/04/18 20:01 Dose: 1 applic Ondansetron HCl (Zofran Odt) 4 mg PO Q6H PRN PRN Reason: Nausea/Vomiting Last Admin: 04/03/18 09:09 Dose: 4 mg Ondansetron HCl (Zofran) 4 mg IVP Q6H PRN PRN Reason: Nausea/Vomiting Pantoprazole Sodium (Protonix) 40 mg PO DAILY [facility] Last Admin: 05/05/18 08:53 Dose: 40 mg Phenol (Chloraseptic [place] 180 Ml Bot) 0 ml PO PRN PRN PRN Reason: Sore Throat Potassium Chloride (Klor-Con) 20 meq PO QAM-WM [facility] Last Admin: 05/05/18 08:55 Dose: 20 meq Senna (Senokot) 2 tab PO HSPRN PRN PRN Reason: Constipation Sodium Bicarbonate (Bicarbonate, Sodium) 650 mg PER TUBE .PER PROTOCOL PRN PRN Reason: ENTERAL TUBE OCCLUSION Sodium Chloride (Flush - Normal Saline) 10 ml IVF Q12HR [facility] Last Admin: 05/04/18 20:01 Dose: Not Given Sodium Chloride (Flush - Normal Saline) 10 ml IVF PRN PRN PRN Reason: Saline Flush Last Admin: 04/13/18 05:41 Dose: 10 ml Sodium Chloride ([place] Nasal [place] 0.65%) 0 ml EA NARE QIDPRN PRN PRN Reason: Nasal Congestion Tramadol HCl (Ultram) 50 mg PO Q4H PRN PRN Reason: Moderate Pain (4-6) Last Admin: 04/30/18 08:04 Dose: 50 mg Tramadol HCl (Ultram) 100 mg PO Q6H PRN PRN Reason: Moderate to Severe Pain (6-10)
[2018-05-05] MEDS: Acetaminophen 650 MG/20.3 ML UDCUP PO PRN (10:30)
--- NOTE | 2018-05-05 10:56 | PRG ---
DATE OF SERVICE: 05/05/2018 SUBJECTIVE: The patient appears about the same. She has no complaints. OBJECTIVE: VITAL SIGNS: Temperature 97.8, pulse 70, respirations 20, O2 sat 90% on trach collar, blood pressure 118/69. HEENT: Unremarkable. NECK: Trach in good position. LUNGS: Fairly clear. CARDIAC: S1 and S2 regular. ABDOMEN: Soft, obese. EXTREMITIES: No edema. ASSESSMENT: 1. Obesity-hypoventilation syndrome. 2. Status post tracheostomy and percutaneous endoscopic gastrostomy. PLAN: Continuing rehabilitation inside the hospital since she has no insurance. Hopefully, she can be sent home with her children fairly soon.
--- NOTE | 2018-05-05 17:13 | PDOC.PN ---
- Subjective Encounter Start Date: 05/05/18 Encounter Start Time: 15:00 Patient is seen today, alert and oriented. Waiting on placement. - Objective Resuscitation Status: Resuscitation Status FULL:Full Resuscitation MAR Reviewed: Yes Vital Signs & Weight: Vital Signs (12 hours) Temp Pulse Resp BP Pulse Ox 05/05/18 12:57 76 18 05/05/18 08:00 97.8 F 78 20 98 05/05/18 07:10 97.8 F 78 20 118/69 98 05/05/18 07:08 73 16 Weight Admit Weight 600 lb Weight 341 lb 9.6 oz Most Recent Monitor Data Heart Rate from ECG 73 NIBP 109/61 NIBP BP-Mean 72 Respiration from ECG 29 SpO2 94 I&O: 05/04/18 05/05/18 05/06/18 06:59 06:59 06:59 Intake Total 1220 1555 240 Balance 1220 1555 240 Result Diagrams: 05/04/18 04:11 05/04/18 04:11 Radiology Reviewed by me: Yes EKG Reviewed by me: Yes Dx/Plan (1) Acute idiopathic thrombocytopenic purpura Code(s): D69.3 - IMMUNE THROMBOCYTOPENIC PURPURA Status: Deleted Comment: resolved. (2) Acute and chronic respiratory failure Code(s): J96.20 - ACUTE AND CHR RESP FAILURE, UNSP W HYPOXIA OR HYPERCAPNIA Status: Chronic Qualifiers: Respiratory failure complication: hypoxia and hypercapnia Qualified Code(s) : J96.21 - Acute and chronic respiratory failure with hypoxia; J96.22 - Acute and chronic respiratory failure with hypercapnia; J96.22 - Acute and chronic respiratory failure with hypercapnia; J96.22 - Acute and chronic respiratory failure with hypercapnia Comment: Stable on trach collar. (3) Acute on chronic diastolic (congestive) heart failure Code(s): I50.33 - ACUTE ON CHRONIC DIASTOLIC (CONGESTIVE) HEART FAILURE Status : Chronic (4) Hypokalemia Code(s): E87.6 - HYPOKALEMIA Status: Deleted Comment: continue electrolyte replacement protocol (5) Morbid obesity with BMI of 70 and over, adult Code(s): E66.01 - MORBID (SEVERE) OBESITY DUE TO EXCESS CALORIES; Z68.45 - BODY MASS INDEX (BMI) 70 OR GREATER, ADULT Status: Deleted (6) Pickwickian syndrome Code(s): E66.2 - MORBID (SEVERE) OBESITY WITH ALVEOLAR HYPOVENTILATION Status : Chronic Comment: s/p trach collar. (7) Pulmonary embolism Code(s): I26.99 - OTHER PULMONARY EMBOLISM WITHOUT ACUTE COR PULMONALE Status : Deleted Comment: resolved. On DVT prophyalxis. (8) Afib Code(s): I48.91 - UNSPECIFIED ATRIAL FIBRILLATION Status: Chronic Qualifiers: Atrial fibrillation type: paroxysmal Qualified Code(s): I48.0 - Paroxysmal atrial fibrillation Comment: Rate controlled. Continue ASA and Amiodarone. ELIQUIS HELD SECONDARY TO BLEEDING AFTER DUENAS CAME OUT. RESUMED 04/30. REGULAR NOW. 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 Review of Systems - Medications/Allergies Allergies/Adverse Reactions: Allergies Allergy/AdvReac Type Severity Reaction Status Date / Time No Known Drug Allergies Allergy Verified 03/08/18 14:16 Medications: Current Medications Acetaminophen (Tylenol Elixir) 1,000 mg PO Q6H PRN PRN Reason: Headache/Fever or Pain Last Admin: 05/05/18 10:30 Dose: 1,000 mg Al Hydroxide/Mg Hydroxide (Maalox) 15 ml PER TUBE Q4H PRN PRN Reason: Heartburn or Indigestion Albuterol/Ipratropium (Duoneb) 3 ml NEB [id number] [facility] Last Admin: 05/05/18 12:57 Dose: 3 ml Amiodarone HCl (Cordarone) 200 mg PO DAILY [facility] Last Admin: 05/05/18 08:54 Dose: 200 mg Lipase/Protease/[place] ([place] [id number]) 1 cap FS .PER PROTOCOL PRN PRN Reason: TUBE OCCLUSION PROTOCOL Apixaban (Eliquis) 5 mg PO BID [facility] Last Admin: 05/05/18 08:55 Dose: 5 mg Artificial Tears (Tears Renewed 15ml Bottle) 0 drop EA EYE PRN PRN PRN Reason: Dry Eyes Aspirin (Aspirin Chewable) 81 mg PO DAILY [facility] Last Admin: 05/05/18 08:52 Dose: 81 mg Bupropion HCl (Wellbutrin) 150 mg PO BID [facility] Last Admin: 05/05/18 08:51 Dose: 150 mg Clonidine (Catapres) 0.1 mg PO Q4H PRN PRN Reason: Systolic BP > 180 Last Admin: 03/20/18 21:05 Dose: 0.1 mg Furosemide (Lasix) 40 mg PO DAILY-AC [facility] Last Admin: 05/05/18 08:55 Dose: 40 mg Guaifenesin/Dextromethorphan (Robitussin Dm) 10 ml PO 2100 [facility] Last Admin: 05/04/18 20:00 Dose: 10 ml Hydralazine HCl (Apresoline) 10 mg SLOW IVP Q4H PRN PRN Reason: Systolic BP > 180 Last Admin: 03/14/18 17:06 Dose: 10 mg Loperamide HCl (Imodium) 2 mg PER TUBE PRN PRN PRN Reason: Diarrhea/Loose Stools Losartan Potassium (Cozaar) 12.5 mg PO DAILY [facility] Last Admin: 05/05/18 08:53 Dose: 12.5 mg Magnesium Hydroxide (Milk Of Magnesium) 30 ml PER TUBE DAILYPRN PRN PRN Reason: Constipation Mineral Oil/White Petrolatum (Eucerin Cream) 0 gm TOP BIDPRN PRN PRN Reason: Dry Skin Nystatin (Mycostatin Powder) 30 gm TOP BID [facility] Last Admin: 05/05/18 09:00 Dose: 1 applic Ondansetron HCl (Zofran Odt) 4 mg PO Q6H PRN PRN Reason: Nausea/Vomiting Last Admin: 04/03/18 09:09 Dose: 4 mg Ondansetron HCl (Zofran) 4 mg IVP Q6H PRN PRN Reason: Nausea/Vomiting Pantoprazole Sodium (Protonix) 40 mg PO DAILY [facility] Last Admin: 05/05/18 08:53 Dose: 40 mg Phenol (Chloraseptic [place] 180 Ml Bot) 0 ml PO PRN PRN PRN Reason: Sore Throat Potassium Chloride (Klor-Con) 20 meq PO QAM-WM [facility] Last Admin: 05/05/18 08:55 Dose: 20 meq Senna (Senokot) 2 tab PO HSPRN PRN PRN Reason: Constipation Sodium Bicarbonate (Bicarbonate, Sodium) 650 mg PER TUBE .PER PROTOCOL PRN PRN Reason: ENTERAL TUBE OCCLUSION Sodium Chloride (Flush - Normal Saline) 10 ml IVF Q12HR [facility] Last Admin: 05/05/18 09:00 Dose: 10 ml Sodium Chloride (Flush - Normal Saline) 10 ml IVF PRN PRN PRN Reason: Saline Flush Last Admin: 04/13/18 05:41 Dose: 10 ml Sodium Chloride ([place] Nasal [place] 0.65%) 0 ml EA NARE QIDPRN PRN PRN Reason: Nasal Congestion Tramadol HCl (Ultram) 50 mg PO Q4H PRN PRN Reason: Moderate Pain (4-6) Last Admin: 04/30/18 08:04 Dose: 50 mg Tramadol HCl (Ultram) 100 mg PO Q6H PRN PRN Reason: Moderate to Severe Pain (6-10)
[2018-05-05] MEDS: Guaifenesin DM 100-10/5 ML UDCUP PO SCH (20:23)
[2018-05-06 05:33] LABS: Hemoglobin 11.7 g/dL (12.0-16.0); Platelet Count 123 thou/uL (130-400)
[2018-05-06] MEDS: Furosemide 40 MG TAB PO SCH (08:41)
[2018-05-06] MEDS: Nystatin Powder 15 GM BOT TOP SCH ×2 (08:46→22:22)
[2018-05-06] MEDS: Losartan 25 MG TAB PO SCH (09:59)
[2018-05-06] MEDS: Apixaban 5 MG TAB PO SCH ×2 (10:00→22:21)
[2018-05-06] MEDS: buPROPion 75 MG TAB PO SCH ×2 (10:01→22:21)
[2018-05-06] MEDS: Amiodarone 200 MG TAB PO SCH (10:02)
[2018-05-06] MEDS: Acetaminophen 650 MG/20.3 ML UDCUP PO PRN (10:04)
--- NOTE | 2018-05-06 12:57 | PDOC.PN ---
- Subjective Encounter Start Date: 05/06/18 Encounter Start Time: 10:15 Subjective: awake, no sob, feels better - Objective Resuscitation Status: Resuscitation Status FULL:Full Resuscitation MAR Reviewed: Yes Vital Signs & Weight: Vital Signs (12 hours) Temp Pulse Resp BP Pulse Ox 05/06/18 12:13 81 20 96 05/06/18 08:00 97.9 F 75 18 138/80 94 L 05/06/18 07:09 79 16 95 Weight Admit Weight 600 lb Weight 341 lb 9.6 oz Most Recent Monitor Data Heart Rate from ECG 73 NIBP 109/61 NIBP BP-Mean 72 Respiration from ECG 29 SpO2 94 I&O: 05/05/18 05/06/18 05/07/18 06:59 06:59 06:59 Intake Total 1555 1250 Balance 1555 1250 Result Diagrams: 05/06/18 04:31 05/06/18 04:31 Phys Exam - Physical Examination HEENT: PERRLA, sclera anicteric Neck: no JVD trach+ Respiratory: no wheezing, no rales Cardiovascular: RRR, no significant murmur Gastrointestinal: soft, no distention, positive bowel sounds Musculoskeletal: pulses present, edema present Neurological: non-focal, moves all 4 limbs Psychiatric: A&O x 3 Dx/Plan (1) Acute and chronic respiratory failure Code(s): J96.20 - ACUTE AND CHR RESP FAILURE, UNSP W HYPOXIA OR HYPERCAPNIA Status: Chronic Qualifiers: Respiratory failure complication: hypoxia and hypercapnia Qualified Code(s) : J96.21 - Acute and chronic respiratory failure with hypoxia; J96.22 - Acute and chronic respiratory failure with hypercapnia; J96.22 - Acute and chronic respiratory failure with hypercapnia; J96.22 - Acute and chronic respiratory failure with hypercapnia Comment: Stable on trach collar. (2) CAROL (obstructive sleep apnea) Code(s): G47.33 - OBSTRUCTIVE SLEEP APNEA (ADULT) (PEDIATRIC) Status: Chronic (3) Afib Code(s): I48.91 - UNSPECIFIED ATRIAL FIBRILLATION Status: Chronic Qualifiers: Atrial fibrillation type: paroxysmal Qualified Code(s): I48.0 - Paroxysmal atrial fibrillation Comment: Rate controlled. Continue ASA and Amiodarone. ELIQUIS (4) Acute on chronic diastolic (congestive) heart failure Code(s): I50.33 - ACUTE ON CHRONIC DIASTOLIC (CONGESTIVE) HEART FAILURE Status : Chronic (5) Pickwickian syndrome Code(s): E66.2 - MORBID (SEVERE) OBESITY WITH ALVEOLAR HYPOVENTILATION Status : Chronic Comment: s/p trach collar. (6) Status post tracheostomy Code(s): Z93.0 - TRACHEOSTOMY STATUS Status: Deleted Comment: Had procedure on 03/09/18. Stable. (7) S/P percutaneous endoscopic gastrostomy (PEG) tube placement Code(s): Z93.1 - GASTROSTOMY STATUS Status: Deleted Comment: Had procedure on 03/09/18. NO LONGER BEING USED. TAKING PO (8) Severe muscle deconditioning Code(s): R29.898 - OT SYMPTOMS AND SIGNS INVOLVING THE MUSCULOSKELETAL SYSTEM Status: Acute - Plan to mobilize with PT -: dc plan when family can manage her at home -: she needs to learn trach suction -: on amiodarone, eliquis, aspirin and cozaar * . Review of Systems - Medications/Allergies Allergies/Adverse Reactions: Allergies Allergy/AdvReac Type Severity Reaction Status Date / Time No Known Drug Allergies Allergy Verified 03/08/18 14:16 Medications: Current Medications Acetaminophen (Tylenol Elixir) 1,000 mg PO Q6H PRN PRN Reason: Headache/Fever or Pain Last Admin: 05/06/18 10:04 Dose: 1,000 mg Al Hydroxide/Mg Hydroxide (Maalox) 15 ml PER TUBE Q4H PRN PRN Reason: Heartburn or Indigestion Albuterol/Ipratropium (Duoneb) 3 ml NEB A1NS-LM [facility] Last Admin: 05/06/18 12:13 Dose: 3 ml Amiodarone HCl (Cordarone) 200 mg PO DAILY [facility] Last Admin: 05/06/18 10:02 Dose: 200 mg Lipase/Protease/Amylase ([place] [id number]) 1 cap FS .PER PROTOCOL PRN PRN Reason: TUBE OCCLUSION PROTOCOL Apixaban (Eliquis) 5 mg PO BID [facility] Last Admin: 05/06/18 10:00 Dose: 5 mg Artificial Tears (Tears Renewed 15ml Bottle) 0 drop EA EYE PRN PRN PRN Reason: Dry Eyes Aspirin (Aspirin Chewable) 81 mg PO DAILY [facility] Last Admin: 05/06/18 10:02 Dose: 81 mg Bupropion HCl (Wellbutrin) 150 mg PO BID [facility] Last Admin: 05/06/18 10:01 Dose: 150 mg Clonidine (Catapres) 0.1 mg PO Q4H PRN PRN Reason: Systolic BP > 180 Last Admin: 03/20/18 21:05 Dose: 0.1 mg Furosemide (Lasix) 40 mg PO DAILY-AC [facility] Last Admin: 05/06/18 08:41 Dose: 40 mg Guaifenesin/Dextromethorphan (Robitussin Dm) 10 ml PO 2100 [facility] Last Admin: 05/05/18 20:23 Dose: 10 ml Hydralazine HCl (Apresoline) 10 mg SLOW IVP Q4H PRN PRN Reason: Systolic BP > 180 Last Admin: 03/14/18 17:06 Dose: 10 mg Loperamide HCl (Imodium) 2 mg PER TUBE PRN PRN PRN Reason: Diarrhea/Loose Stools Losartan Potassium (Cozaar) 12.5 mg PO DAILY [facility] Last Admin: 05/06/18 09:59 Dose: 12.5 mg Magnesium Hydroxide (Milk Of Magnesium) 30 ml PER TUBE DAILYPRN PRN PRN Reason: Constipation Mineral Oil/White Petrolatum (Eucerin Cream) 0 gm TOP BIDPRN PRN PRN Reason: Dry Skin Nystatin (Mycostatin Powder) 30 gm TOP BID [facility] Last Admin: 05/06/18 08:46 Dose: 1 applic Ondansetron HCl (Zofran Odt) 4 mg PO Q6H PRN PRN Reason: Nausea/Vomiting Last Admin: 04/03/18 09:09 Dose: 4 mg Ondansetron HCl (Zofran) 4 mg IVP Q6H PRN PRN Reason: Nausea/Vomiting Pantoprazole Sodium (Protonix) 40 mg PO DAILY [facility] Last Admin: 05/06/18 10:01 Dose: 40 mg Phenol (Chloraseptic [place] 180 Ml Bot) 0 ml PO PRN PRN PRN Reason: Sore Throat Potassium Chloride (Klor-Con) 20 meq PO QAM-WM [facility] Last Admin: 05/06/18 10:02 Dose: 20 meq Senna (Senokot) 2 tab PO HSPRN PRN PRN Reason: Constipation Sodium Bicarbonate (Bicarbonate, Sodium) 650 mg PER TUBE .PER PROTOCOL PRN PRN Reason: ENTERAL TUBE OCCLUSION Sodium Chloride (Flush - Normal Saline) 10 ml IVF Q12HR [facility] Last Admin: 05/06/18 10:03 Dose: Not Given Sodium Chloride (Flush - Normal Saline) 10 ml IVF PRN PRN PRN Reason: Saline Flush Last Admin: 04/13/18 05:41 Dose: 10 ml Sodium Chloride ([place] Nasal [place] 0.65%) 0 ml EA NARE QIDPRN PRN PRN Reason: Nasal Congestion Tramadol HCl (Ultram) 50 mg PO Q4H PRN PRN Reason: Moderate Pain (4-6) Last Admin: 04/30/18 08:04 Dose: 50 mg Tramadol HCl (Ultram) 100 mg PO Q6H PRN PRN Reason: Moderate to Severe Pain (6-10)
[2018-05-06] MEDS: Guaifenesin DM 100-10/5 ML UDCUP PO SCH (22:22)
[2018-05-07] MEDS: Acetaminophen 650 MG/20.3 ML UDCUP PO PRN ×2 (06:34→13:36)
[2018-05-07] MEDS: Losartan 25 MG TAB PO SCH (09:05)
[2018-05-07] MEDS: Furosemide 40 MG TAB PO SCH (09:06)
[2018-05-07] MEDS: Apixaban 5 MG TAB PO SCH ×2 (09:06→21:18)
[2018-05-07] MEDS: buPROPion 75 MG TAB PO SCH ×2 (09:06→21:18)
[2018-05-07] MEDS: Nystatin Powder 15 GM BOT TOP SCH ×2 (09:06→21:18)
[2018-05-07] MEDS: Amiodarone 200 MG TAB PO SCH (09:06)
--- NOTE | 2018-05-07 09:27 | PRG ---
DATE OF SERVICE: 05/07/2018 SUBJECTIVE: The patient is doing reasonably well. She seems depressed. PHYSICAL EXAMINATION: VITAL SIGNS: Temperature 98.2, pulse 82, respiration 16, O2 sat 97%, blood pressure 141/78. HEENT: Unremarkable. NECK: No JVD. CHEST: Clear without wheezing or rhonchi. ABDOMEN: Soft, nontender. EXTREMITIES: No edema. ASSESSMENT: 1. Severe deconditioning. 2. Status post trach for obesity hypoventilation syndrome. PLAN: Needs to transition towards home when felt stable.
--- NOTE | 2018-05-07 12:13 | PDOC.PN ---
- Subjective Encounter Start Date: 05/07/18 Encounter Start Time: 10:00 Subjective: awake, no sob - Objective Resuscitation Status: Resuscitation Status FULL:Full Resuscitation MAR Reviewed: Yes Vital Signs & Weight: Vital Signs (12 hours) Temp Pulse Resp BP Pulse Ox 05/07/18 08:00 98.2 F 72 16 97 05/07/18 07:54 98.2 F 72 16 141/78 H 97 05/07/18 07:01 97 05/07/18 06:30 72 16 Weight Admit Weight 600 lb Weight 339 lb 12.423 oz Most Recent Monitor Data Heart Rate from ECG 73 NIBP 109/61 NIBP BP-Mean 72 Respiration from ECG 29 SpO2 94 I&O: 05/06/18 05/07/18 05/08/18 06:59 06:59 06:59 Intake Total 1250 2014 240 Balance 1250 2014 240 Result Diagrams: 05/06/18 04:31 05/06/18 04:31 Phys Exam - Physical Examination HEENT: PERRLA, sclera anicteric Neck: no JVD trach+ Respiratory: no wheezing, no rales Cardiovascular: RRR, no significant murmur Gastrointestinal: soft, non-tender, positive bowel sounds Musculoskeletal: pulses present, edema present Neurological: non-focal, moves all 4 limbs Psychiatric: A&O x 3 Dx/Plan (1) Acute and chronic respiratory failure Code(s): J96.20 - ACUTE AND CHR RESP FAILURE, UNSP W HYPOXIA OR HYPERCAPNIA Status: Chronic Qualifiers: Respiratory failure complication: hypoxia and hypercapnia Qualified Code(s) : J96.21 - Acute and chronic respiratory failure with hypoxia; J96.22 - Acute and chronic respiratory failure with hypercapnia; J96.22 - Acute and chronic respiratory failure with hypercapnia; J96.22 - Acute and chronic respiratory failure with hypercapnia Comment: Stable on trach collar. (2) CAROL (obstructive sleep apnea) Code(s): G47.33 - OBSTRUCTIVE SLEEP APNEA (ADULT) (PEDIATRIC) Status: Chronic (3) Afib Code(s): I48.91 - UNSPECIFIED ATRIAL FIBRILLATION Status: Chronic Qualifiers: Atrial fibrillation type: paroxysmal Qualified Code(s): I48.0 - Paroxysmal atrial fibrillation Comment: Rate controlled. Continue ASA and Amiodarone. ELIQUIS (4) Acute on chronic diastolic (congestive) heart failure Code(s): I50.33 - ACUTE ON CHRONIC DIASTOLIC (CONGESTIVE) HEART FAILURE Status : Chronic (5) Pickwickian syndrome Code(s): E66.2 - MORBID (SEVERE) OBESITY WITH ALVEOLAR HYPOVENTILATION Status : Chronic Comment: s/p trach collar. (6) Status post tracheostomy Code(s): Z93.0 - TRACHEOSTOMY STATUS Status: Deleted Comment: Had procedure on 03/09/18. Stable. (7) S/P percutaneous endoscopic gastrostomy (PEG) tube placement Code(s): Z93.1 - GASTROSTOMY STATUS Status: Deleted Comment: Had procedure on 03/09/18. NO LONGER BEING USED. TAKING PO (8) Severe muscle deconditioning Code(s): R29.898 - OTH SYMPTOMS AND SIGNS INVOLVING THE MUSCULOSKELETAL SYSTEM Status: Acute - Plan hemostable -: d/w CM to arrange bariatric bed, trach and other supplies for home use -: May DC anytime she is able to pivot to get to wheel chair -: today is day #70 of hospitalization -: once she is min assist then family should arrange help at home * . Review of Systems - Medications/Allergies Allergies/Adverse Reactions: Allergies Allergy/AdvReac Type Severity Reaction Status Date / Time No Known Drug Allergies Allergy Verified 03/08/18 14:16 Medications: Current Medications Acetaminophen (Tylenol Elixir) 1,000 mg PO Q6H PRN PRN Reason: Headache/Fever or Pain Last Admin: 05/07/18 06:34 Dose: 1,000 mg Al Hydroxide/Mg Hydroxide (Maalox) 15 ml PER TUBE Q4H PRN PRN Reason: Heartburn or Indigestion Albuterol/Ipratropium (Duoneb) 3 ml NEB [id number] [facility] Last Admin: 05/07/18 06:30 Dose: 3 ml Amiodarone HCl (Cordarone) 200 mg PO DAILY [facility] Last Admin: 05/07/18 09:06 Dose: 200 mg Lipase/Protease/Amylase ([place] [id number]) 1 cap FS .PER PROTOCOL PRN PRN Reason: TUBE OCCLUSION PROTOCOL Apixaban (Eliquis) 5 mg PO BID [facility] Last Admin: 05/07/18 09:06 Dose: 5 mg Artificial Tears (Tears Renewed 15ml Bottle) 0 drop EA EYE PRN PRN PRN Reason: Dry Eyes Aspirin (Aspirin Chewable) 81 mg PO DAILY [facility] Last Admin: 05/07/18 09:06 Dose: 81 mg Bupropion HCl (Wellbutrin) 150 mg PO BID [facility] Last Admin: 05/07/18 09:06 Dose: 150 mg Clonidine (Catapres) 0.1 mg PO Q4H PRN PRN Reason: Systolic BP > 180 Last Admin: 03/20/18 21:05 Dose: 0.1 mg Furosemide (Lasix) 40 mg PO DAILY-AC [facility] Last Admin: 05/07/18 09:06 Dose: 40 mg Guaifenesin/Dextromethorphan (Robitussin Dm) 10 ml PO 2100 [facility] Last Admin: 05/06/18 22:22 Dose: 10 ml Hydralazine HCl (Apresoline) 10 mg SLOW IVP Q4H PRN PRN Reason: Systolic BP > 180 Last Admin: 03/14/18 17:06 Dose: 10 mg Loperamide HCl (Imodium) 2 mg PER TUBE PRN PRN PRN Reason: Diarrhea/Loose Stools Losartan Potassium (Cozaar) 12.5 mg PO DAILY [facility] Last Admin: 05/07/18 09:05 Dose: 12.5 mg Magnesium Hydroxide (Milk Of Magnesium) 30 ml PER TUBE DAILYPRN PRN PRN Reason: Constipation Mineral Oil/White Petrolatum (Eucerin Cream) 0 gm TOP BIDPRN PRN PRN Reason: Dry Skin Nystatin (Mycostatin Powder) 30 gm TOP BID [facility] Last Admin: 05/07/18 09:06 Dose: 1 applic Ondansetron HCl (Zofran Odt) 4 mg PO Q6H PRN PRN Reason: Nausea/Vomiting Last Admin: 04/03/18 09:09 Dose: 4 mg Ondansetron HCl (Zofran) 4 mg IVP Q6H PRN PRN Reason: Nausea/Vomiting Pantoprazole Sodium (Protonix) 40 mg PO DAILY [facility] Last Admin: 05/07/18 09:06 Dose: 40 mg Phenol (Chloraseptic [place] 180 Ml Bot) 0 ml PO PRN PRN PRN Reason: Sore Throat Potassium Chloride (Klor-Con) 20 meq PO QAM-WM [facility] Last Admin: 05/07/18 09:06 Dose: 20 meq Senna (Senokot) 2 tab PO HSPRN PRN PRN Reason: Constipation Sodium Bicarbonate (Bicarbonate, Sodium) 650 mg PER TUBE .PER PROTOCOL PRN PRN Reason: ENTERAL TUBE OCCLUSION Sodium Chloride (Flush - Normal Saline) 10 ml IVF Q12HR [facility] Last Admin: 05/07/18 09:07 Dose: Not Given Sodium Chloride (Flush - Normal Saline) 10 ml IVF PRN PRN PRN Reason: Saline Flush Last Admin: 04/13/18 05:41 Dose: 10 ml Sodium Chloride ([place] Nasal [place] 0.65%) 0 ml EA NARE QIDPRN PRN PRN Reason: Nasal Congestion
[2018-05-07] MEDS: Guaifenesin DM 100-10/5 ML UDCUP PO SCH (21:18)
[2018-05-08 05:36] LABS: Hemoglobin 11.4 g/dL (12.0-16.0); Platelet Count 111 thou/uL (130-400)
[2018-05-08] MEDS: buPROPion 75 MG TAB PO SCH ×2 (09:56→21:02)
[2018-05-08] MEDS: Apixaban 5 MG TAB PO SCH ×2 (09:56→21:03)
[2018-05-08] MEDS: Amiodarone 200 MG TAB PO SCH (09:58)
[2018-05-08] MEDS: Furosemide 40 MG TAB PO SCH (09:59)
[2018-05-08] MEDS: Nystatin Powder 15 GM BOT TOP SCH ×2 (09:59→21:04)
[2018-05-08] MEDS: Losartan 25 MG TAB PO SCH (10:02)
[2018-05-08] MEDS: Acetaminophen 650 MG/20.3 ML UDCUP PO PRN (10:11)
--- NOTE | 2018-05-08 11:18 | PDOC.PN ---
- Subjective Encounter Start Date: 05/08/18 Encounter Start Time: 08:15 Subjective: no sob, feels good - Objective Resuscitation Status: Resuscitation Status FULL:Full Resuscitation MAR Reviewed: Yes Vital Signs & Weight: Vital Signs (12 hours) Temp Pulse Resp BP Pulse Ox 05/08/18 07:57 98.7 F 96 14 109/71 92 L 05/08/18 07:12 96 20 96 05/08/18 01:06 74 16 94 L Weight Admit Weight 600 lb Weight 336 lb 14.4 oz Most Recent Monitor Data Heart Rate from ECG 73 NIBP 109/61 NIBP BP-Mean 72 Respiration from ECG 29 SpO2 94 I&O: 05/07/18 05/08/18 05/09/18 06:59 06:59 06:59 Intake Total 2014 158 Balance 2014 1580 Result Diagrams: 05/08/18 04:55 05/08/18 04:55 Phys Exam - Physical Examination HEENT: PERRLA, sclera anicteric Neck: no JVD trach+ Respiratory: no wheezing, no rales Cardiovascular: RRR, no significant murmur Gastrointestinal: soft, non-tender, positive bowel sounds Musculoskeletal: pulses present, edema present Neurological: non-focal, moves all 4 limbs Psychiatric: normal affect, A&O x 3 Dx/Plan (1) Acute and chronic respiratory failure Code(s): J96.20 - ACUTE AND CHR RESP FAILURE, UNSP W HYPOXIA OR HYPERCAPNIA Status: Chronic Qualifiers: Respiratory failure complication: hypoxia and hypercapnia Qualified Code(s) : J96.21 - Acute and chronic respiratory failure with hypoxia; J96.22 - Acute and chronic respiratory failure with hypercapnia; J96.22 - Acute and chronic respiratory failure with hypercapnia; J96.22 - Acute and chronic respiratory failure with hypercapnia Comment: Stable on trach collar. (2) CAROL (obstructive sleep apnea) Code(s): G47.33 - OBSTRUCTIVE SLEEP APNEA (ADULT) (PEDIATRIC) Status: Chronic (3) Afib Code(s): I48.91 - UNSPECIFIED ATRIAL FIBRILLATION Status: Chronic Qualifiers: Atrial fibrillation type: paroxysmal Qualified Code(s): I48.0 - Paroxysmal atrial fibrillation Comment: Rate controlled. Continue ASA and Amiodarone. ELIQUIS (4) Acute on chronic diastolic (congestive) heart failure Code(s): I50.33 - ACUTE ON CHRONIC DIASTOLIC (CONGESTIVE) HEART FAILURE Status : Chronic (5) Pickwickian syndrome Code(s): E66.2 - MORBID (SEVERE) OBESITY WITH ALVEOLAR HYPOVENTILATION Status : Chronic Comment: s/p trach collar. (6) Status post tracheostomy Code(s): Z93.0 - TRACHEOSTOMY STATUS Status: Deleted Comment: Had procedure on 03/09/18. Stable. (7) S/P percutaneous endoscopic gastrostomy (PEG) tube placement Code(s): Z93.1 - GASTROSTOMY STATUS Status: Deleted Comment: Had procedure on 03/09/18. NO LONGER BEING USED. TAKING PO (8) Severe muscle deconditioning Code(s): R29.898 - OT SYMPTOMS AND SIGNS INVOLVING THE MUSCULOSKELETAL SYSTEM Status: Acute - Plan has ambulated 5ft with min assist yesterday -: d/w CM about arrangements to be done to go home -: may dc anytime if family is ready to take her -: on amiodarone, eliquis, cozaar, nebs and lasix -: is tolerating oral diet and is using speaking valve to communicate * . Review of Systems - Medications/Allergies Allergies/Adverse Reactions: Allergies Allergy/AdvReac Type Severity Reaction Status Date / Time No Known Drug Allergies Allergy Verified 03/08/18 14:16 Medications: Current Medications Acetaminophen (Tylenol Elixir) 1,000 mg PO Q6H PRN PRN Reason: Headache/Fever or Pain Last Admin: 05/08/18 10:11 Dose: 1,000 mg Al Hydroxide/Mg Hydroxide (Maalox) 15 ml PER TUBE Q4H PRN PRN Reason: Heartburn or Indigestion Albuterol/Ipratropium (Duoneb) 3 ml NEB [id number] HEIKE Last Admin: 05/08/18 07:12 Dose: 3 ml Amiodarone HCl (Cordarone) 200 mg PO DAILY [facility] Last Admin: 05/08/18 09:58 Dose: 200 mg Lipase/Protease/Amylase ([place] [id number]) 1 cap FS .PER PROTOCOL PRN PRN Reason: TUBE OCCLUSION PROTOCOL Apixaban (Eliquis) 5 mg PO BID [facility] Last Admin: 05/08/18 09:56 Dose: 5 mg Artificial Tears (Tears Renewed 15ml Bottle) 0 drop EA EYE PRN PRN PRN Reason: Dry Eyes Aspirin (Aspirin Chewable) 81 mg PO DAILY [facility] Last Admin: 05/08/18 09:57 Dose: 81 mg Bupropion HCl (Wellbutrin) 150 mg PO BID [facility] Last Admin: 05/08/18 09:56 Dose: 150 mg Clonidine (Catapres) 0.1 mg PO Q4H PRN PRN Reason: Systolic BP > 180 Last Admin: 03/20/18 21:05 Dose: 0.1 mg Furosemide (Lasix) 40 mg PO DAILY-AC [facility] Last Admin: 05/08/18 09:59 Dose: 40 mg Guaifenesin/Dextromethorphan (Robitussin Dm) 10 ml PO 2100 [facility] Last Admin: 05/07/18 21:18 Dose: 10 ml Hydralazine HCl (Apresoline) 10 mg SLOW IVP Q4H PRN PRN Reason: Systolic BP > 180 Last Admin: 03/14/18 17:06 Dose: 10 mg Loperamide HCl (Imodium) 2 mg PER TUBE PRN PRN PRN Reason: Diarrhea/Loose Stools Losartan Potassium (Cozaar) 12.5 mg PO DAILY [facility] Last Admin: 05/08/18 10:02 Dose: Not Given Magnesium Hydroxide (Milk Of Magnesium) 30 ml PER TUBE DAILYPRN PRN PRN Reason: Constipation Mineral Oil/White Petrolatum (Eucerin Cream) 0 gm TOP BIDPRN PRN PRN Reason: Dry Skin Nystatin (Mycostatin Powder) 30 gm TOP BID [facility] Last Admin: 05/08/18 09:59 Dose: 1 applic Ondansetron HCl (Zofran Odt) 4 mg PO Q6H PRN PRN Reason: Nausea/Vomiting Last Admin: 04/03/18 09:09 Dose: 4 mg Ondansetron HCl (Zofran) 4 mg IVP Q6H PRN PRN Reason: Nausea/Vomiting Pantoprazole Sodium (Protonix) 40 mg PO DAILY [facility] Last Admin: 05/08/18 09:57 Dose: 40 mg Phenol (Chloraseptic [place] 180 Ml Bot) 0 ml PO PRN PRN PRN Reason: Sore Throat Potassium Chloride (Klor-Con) 20 meq PO QAM-WM [facility] Last Admin: 05/08/18 09:58 Dose: 20 meq Senna (Senokot) 2 tab PO HSPRN PRN PRN Reason: Constipation Last Admin: 05/07/18 22:11 Dose: 2 tab Sodium Bicarbonate (Bicarbonate, Sodium) 650 mg PER TUBE .PER PROTOCOL PRN PRN Reason: ENTERAL TUBE OCCLUSION Sodium Chloride (Flush - Normal Saline) 10 ml IVF Q12HR [facility] Last Admin: 05/08/18 10:03 Dose: Not Given Sodium Chloride (Flush - Normal Saline) 10 ml IVF PRN PRN PRN Reason: Saline Flush Last Admin: 04/13/18 05:41 Dose: 10 ml Sodium Chloride ([place] Nasal [place] 0.65%) 0 ml EA NARE QIDPRN PRN PRN Reason: Nasal Congestion
--- NOTE | 2018-05-08 16:57 | PRG ---
DATE OF SERVICE: 05/08/2018 SUBJECTIVE: Ms. Vaughn is doing well. She has no complaints. She was sitting in the chair next to t he bed. She is much more interactive than she was last time I rounded on her and she was smiling. PHYSICAL EXAMINATION: VITAL SIGNS: She is afebrile, heart rate is 96, respiratory rate 14, oximetry is 92%-96% on a trach collar, blood pressure 109/71. LUNGS: Clear and distant breath sounds. HEART: Regular rhythm. ABDOMEN: Soft. Her weight was reported 450 pounds when she was weighed back in early March, I am not sure these weight s are accurate, but she does appear to be losing significant amount of weight. PLAN: Continue with supportive care.
[2018-05-08] MEDS: Guaifenesin DM 100-10/5 ML UDCUP PO SCH (21:02)
[2018-05-09] MEDS: Amiodarone 200 MG TAB PO SCH (07:47)
[2018-05-09] MEDS: buPROPion 75 MG TAB PO SCH ×2 (07:47→19:31)
[2018-05-09] MEDS: Furosemide 40 MG TAB PO SCH (07:47)
[2018-05-09] MEDS: Nystatin Powder 15 GM BOT TOP SCH ×2 (07:48→19:39)
[2018-05-09] MEDS: Losartan 25 MG TAB PO SCH (07:48)
[2018-05-09] MEDS: Apixaban 5 MG TAB PO SCH ×2 (07:48→19:31)
[2018-05-09] MEDS: Acetaminophen 650 MG/20.3 ML UDCUP PO PRN (08:19)
--- NOTE | 2018-05-09 12:13 | PDOC.PN ---
- Subjective Encounter Start Date: 05/09/18 Encounter Start Time: 10:20 Subjective: no sob, feels better, is watching soccer - Objective Resuscitation Status: Resuscitation Status FULL:Full Resuscitation MAR Reviewed: Yes Vital Signs & Weight: Vital Signs (12 hours) Temp Pulse Resp BP Pulse Ox 05/09/18 08:11 98.6 F 98 20 105/62 92 L 05/09/18 08:00 98.6 F 97 16 05/09/18 07:14 97 05/09/18 07:10 97 16 97 05/09/18 00:29 81 16 Weight Admit Weight 600 lb Weight 336 lb 14.4 oz Most Recent Monitor Data Heart Rate from ECG 73 NIBP 109/61 NIBP BP-Mean 72 Respiration from ECG 29 SpO2 94 I&O: 05/08/18 05/09/18 05/10/18 06:59 06:59 06:59 Intake Total 1580 720 Balance 1580 720 Result Diagrams: 05/08/18 04:55 05/08/18 04:55 Phys Exam - Physical Examination HEENT: PERRLA, moist MMs Neck: no JVD, supple Respiratory: no wheezing, no rales Cardiovascular: RRR, no significant murmur Gastrointestinal: soft, non-tender, positive bowel sounds Musculoskeletal: pulses present, edema present Neurological: non-focal, moves all 4 limbs Psychiatric: normal affect, A&O x 3 Dx/Plan (1) Acute and chronic respiratory failure Code(s): J96.20 - ACUTE AND CHR RESP FAILURE, UNSP W HYPOXIA OR HYPERCAPNIA Status: Chronic Qualifiers: Respiratory failure complication: hypoxia and hypercapnia Qualified Code(s) : J96.21 - Acute and chronic respiratory failure with hypoxia; J96.22 - Acute and chronic respiratory failure with hypercapnia; J96.22 - Acute and chronic respiratory failure with hypercapnia; J96.22 - Acute and chronic respiratory failure with hypercapnia Comment: Stable on trach collar. (2) CAROL (obstructive sleep apnea) Code(s): G47.33 - OBSTRUCTIVE SLEEP APNEA (ADULT) (PEDIATRIC) Status: Chronic (3) Afib Code(s): I48.91 - UNSPECIFIED ATRIAL FIBRILLATION Status: Chronic Qualifiers: Atrial fibrillation type: paroxysmal Qualified Code(s): I48.0 - Paroxysmal atrial fibrillation Comment: Rate controlled. Continue ASA and Amiodarone. ELIQUIS (4) Acute on chronic diastolic (congestive) heart failure Code(s): I50.33 - ACUTE ON CHRONIC DIASTOLIC (CONGESTIVE) HEART FAILURE Status : Chronic (5) Pickwickian syndrome Code(s): E66.2 - MORBID (SEVERE) OBESITY WITH ALVEOLAR HYPOVENTILATION Status : Chronic Comment: s/p trach collar. (6) Status post tracheostomy Code(s): Z93.0 - TRACHEOSTOMY STATUS Status: Chronic Comment: Had procedure on 03/09/18. Stable. (7) S/P percutaneous endoscopic gastrostomy (PEG) tube placement Code(s): Z93.1 - GASTROSTOMY STATUS Status: Chronic Comment: Had procedure on 03/09/18. NO LONGER BEING USED. TAKING PO (8) Severe muscle deconditioning Code(s): R29.898 - [facility] SYMPTOMS AND SIGNS INVOLVING THE MUSCULOSKELETAL SYSTEM Status: Acute Comment: slowly improving - Plan hemostable -: continue amiodarone, eliquis, asp and cozaar -: nebs prn -: PT to mobilize more, needs every day PT -: day #72 in hospital * . Review of Systems - Medications/Allergies Allergies/Adverse Reactions: Allergies Allergy/AdvReac Type Severity Reaction Status Date / Time No Known Drug Allergies Allergy Verified 03/08/18 14:16 Medications: Current Medications Acetaminophen (Tylenol Elixir) 1,000 mg PO Q6H PRN PRN Reason: Headache/Fever or Pain Last Admin: 05/09/18 08:19 Dose: 1,000 mg Al Hydroxide/Mg Hydroxide (Maalox) 15 ml PER TUBE Q4H PRN PRN Reason: Heartburn or Indigestion Albuterol/Ipratropium (Duoneb) 3 ml NEB [id number] [facility] Last Admin: 05/09/18 07:10 Dose: 3 ml Amiodarone HCl (Cordarone) 200 mg PO DAILY [facility] Last Admin: 05/09/18 07:47 Dose: 200 mg Lipase/Protease/Amylase ([place] [id number]) 1 cap FS .PER PROTOCOL PRN PRN Reason: TUBE OCCLUSION PROTOCOL Apixaban (Eliquis) 5 mg PO BID [facility] Last Admin: 05/09/18 07:48 Dose: 5 mg Artificial Tears (Tears Renewed 15ml Bottle) 0 drop EA EYE PRN PRN PRN Reason: Dry Eyes Aspirin (Aspirin Chewable) 81 mg PO DAILY [facility] Last Admin: 05/09/18 07:48 Dose: 81 mg Bupropion HCl (Wellbutrin) 150 mg PO BID [facility] Last Admin: 05/09/18 07:47 Dose: 150 mg Clonidine (Catapres) 0.1 mg PO Q4H PRN PRN Reason: Systolic BP > 180 Last Admin: 03/20/18 21:05 Dose: 0.1 mg Furosemide (Lasix) 40 mg PO DAILY-AC [facility] Last Admin: 05/09/18 07:47 Dose: 40 mg Guaifenesin/Dextromethorphan (Robitussin Dm) 10 ml PO 2100 [facility] Last Admin: 05/08/18 21:02 Dose: 10 ml Hydralazine HCl (Apresoline) 10 mg SLOW IVP Q4H PRN PRN Reason: Systolic BP > 180 Last Admin: 03/14/18 17:06 Dose: 10 mg Loperamide HCl (Imodium) 2 mg PER TUBE PRN PRN PRN Reason: Diarrhea/Loose Stools Losartan Potassium (Cozaar) 12.5 mg PO DAILY [facility] Last Admin: 05/09/18 07:48 Dose: Not Given Magnesium Hydroxide (Milk Of Magnesium) 30 ml PER TUBE DAILYPRN PRN PRN Reason: Constipation Mineral Oil/White Petrolatum (Eucerin Cream) 0 gm TOP BIDPRN PRN PRN Reason: Dry Skin Nystatin (Mycostatin Powder) 30 gm TOP BID [facility] Last Admin: 05/09/18 07:48 Dose: 1 applic Ondansetron HCl (Zofran Odt) 4 mg PO Q6H PRN PRN Reason: Nausea/Vomiting Last Admin: 04/03/18 09:09 Dose: 4 mg Ondansetron HCl (Zofran) 4 mg IVP Q6H PRN PRN Reason: Nausea/Vomiting Pantoprazole Sodium (Protonix) 40 mg PO DAILY [facility] Last Admin: 05/09/18 07:48 Dose: 40 mg Phenol (Chloraseptic [place] 180 Ml Bot) 0 ml PO PRN PRN PRN Reason: Sore Throat Potassium Chloride (Klor-Con) 20 meq PO QAM-WM [facility] Last Admin: 05/09/18 07:48 Dose: 20 meq Senna (Senokot) 2 tab PO HSPRN PRN PRN Reason: Constipation Last Admin: 05/07/18 22:11 Dose: 2 tab Sodium Bicarbonate (Bicarbonate, Sodium) 650 mg PER TUBE .PER PROTOCOL PRN PRN Reason: ENTERAL TUBE OCCLUSION Sodium Chloride (Flush - Normal Saline) 10 ml IVF Q12HR [facility] Last Admin: 05/09/18 08:05 Dose: Not Given Sodium Chloride (Flush - Normal Saline) 10 ml IVF PRN PRN PRN Reason: Saline Flush Last Admin: 04/13/18 05:41 Dose: 10 ml Sodium Chloride ([place] Nasal [place] 0.65%) 0 ml EA NARE QIDPRN PRN PRN Reason: Nasal Congestion
--- NOTE | 2018-05-09 18:21 | PRG ---
DATE OF SERVICE: 05/09/2018 Ms. Sauceda is afebrile, heart rate is 70, respiratory 20, oximetry is 92 on trach collar. There have been no changes overall. Continue supportive care.
[2018-05-09] MEDS: Guaifenesin DM 100-10/5 ML UDCUP PO SCH (19:36)
[2018-05-10 05:11] LABS: Hemoglobin 11.1 g/dL (12.0-16.0); Platelet Count 108 thou/uL (130-400)
[2018-05-10] MEDS: Apixaban 5 MG TAB PO SCH ×2 (08:22→20:59)
[2018-05-10] MEDS: buPROPion 75 MG TAB PO SCH ×2 (08:22→20:59)
[2018-05-10] MEDS: Nystatin Powder 15 GM BOT TOP SCH ×2 (08:23→21:04)
[2018-05-10] MEDS: Losartan 25 MG TAB PO SCH (08:23)
[2018-05-10] MEDS: Amiodarone 200 MG TAB PO SCH (08:23)
[2018-05-10] MEDS: Furosemide 40 MG TAB PO SCH (08:23)
[2018-05-10] MEDS: Acetaminophen 650 MG/20.3 ML UDCUP PO PRN (09:12)
--- NOTE | 2018-05-10 13:02 | PDOC.PN ---
- Subjective Encounter Start Date: 05/10/18 Encounter Start Time: 11:00 Subjective: awake, feels better, watching tv - Objective Resuscitation Status: Resuscitation Status FULL:Full Resuscitation MAR Reviewed: Yes Vital Signs & Weight: Vital Signs (12 hours) Temp Pulse Resp BP Pulse Ox 05/10/18 08:00 98.1 F 65 18 90 L 05/10/18 07:53 98.1 F 65 18 114/63 90 L 05/10/18 07:21 96 05/10/18 07:17 92 20 96 05/10/18 01:13 94 L 05/10/18 01:08 73 16 94 L Weight Admit Weight 600 lb Weight 337 lb 6.4 oz Most Recent Monitor Data Heart Rate from ECG 73 NIBP 109/61 NIBP BP-Mean 72 Respiration from ECG 29 SpO2 94 I&O: 05/09/18 05/10/18 05/11/18 06:59 06:59 06:59 Intake Total 720 1160 Output Total 2 Balance 720 1158 Result Diagrams: 05/10/18 04:23 05/10/18 04:23 Phys Exam - Physical Examination HEENT: PERRLA, moist MMs Neck: no JVD trach+ Respiratory: no wheezing, no rales Cardiovascular: RRR, no significant murmur Gastrointestinal: soft, non-tender, positive bowel sounds Musculoskeletal: pulses present, edema present Neurological: non-focal, moves all 4 limbs Psychiatric: A&O x 3 Dx/Plan (1) Acute and chronic respiratory failure Code(s): J96.20 - ACUTE AND CHR RESP FAILURE, UNSP W HYPOXIA OR HYPERCAPNIA Status: Chronic Qualifiers: Respiratory failure complication: hypoxia and hypercapnia Qualified Code(s) : J96.21 - Acute and chronic respiratory failure with hypoxia; J96.22 - Acute and chronic respiratory failure with hypercapnia; J96.22 - Acute and chronic respiratory failure with hypercapnia; J96.22 - Acute and chronic respiratory failure with hypercapnia Comment: Stable on trach collar. (2) CAROL (obstructive sleep apnea) Code(s): G47.33 - OBSTRUCTIVE SLEEP APNEA (ADULT) (PEDIATRIC) Status: Chronic (3) Afib Code(s): I48.91 - UNSPECIFIED ATRIAL FIBRILLATION Status: Chronic Qualifiers: Atrial fibrillation type: paroxysmal Qualified Code(s): I48.0 - Paroxysmal atrial fibrillation Comment: Rate controlled. Continue ASA and Amiodarone. ELIQUIS (4) Acute on chronic diastolic (congestive) heart failure Code(s): I50.33 - ACUTE ON CHRONIC DIASTOLIC (CONGESTIVE) HEART FAILURE Status : Chronic (5) Pickwickian syndrome Code(s): E66.2 - MORBID (SEVERE) OBESITY WITH ALVEOLAR HYPOVENTILATION Status : Chronic Comment: s/p trach collar. (6) Status post tracheostomy Code(s): Z93.0 - TRACHEOSTOMY STATUS Status: Chronic Comment: Had procedure on 03/09/18. Stable. (7) S/P percutaneous endoscopic gastrostomy (PEG) tube placement Code(s): Z93.1 - GASTROSTOMY STATUS Status: Chronic Comment: Had procedure on 03/09/18. NO LONGER BEING USED. TAKING PO (8) Severe muscle deconditioning Code(s): R29.898 - OT SYMPTOMS AND SIGNS INVOLVING THE MUSCULOSKELETAL SYSTEM Status: Acute Comment: slowly improving - Plan family have arranged for help at home per pt -: will have arrange for hosp bed etc in am -: Will re-evaluate her physical condition in am with reg to mobilization -: Likely dc in am if she and family can manage her at home * . Review of Systems - Medications/Allergies Allergies/Adverse Reactions: Allergies Allergy/AdvReac Type Severity Reaction Status Date / Time No Known Drug Allergies Allergy Verified 03/08/18 14:16 Medications: Current Medications Acetaminophen (Tylenol Elixir) 1,000 mg PO Q6H PRN PRN Reason: Headache/Fever or Pain Last Admin: 05/10/18 09:12 Dose: 1,000 mg Al Hydroxide/Mg Hydroxide (Maalox) 15 ml PER TUBE Q4H PRN PRN Reason: Heartburn or Indigestion Albuterol/Ipratropium (Duoneb) 3 ml NEB [id number] HEIKE Last Admin: 05/10/18 07:17 Dose: 3 ml Amiodarone HCl (Cordarone) 200 mg PO DAILY [facility] Last Admin: 05/10/18 08:23 Dose: 200 mg Lipase/Protease/Amylase ([place] [id number]) 1 cap FS .PER PROTOCOL PRN PRN Reason: TUBE OCCLUSION PROTOCOL Apixaban (Eliquis) 5 mg PO BID [facility] Last Admin: 05/10/18 08:22 Dose: 5 mg Artificial Tears (Tears Renewed 15ml Bottle) 0 drop EA EYE PRN PRN PRN Reason: Dry Eyes Aspirin (Aspirin Chewable) 81 mg PO DAILY [facility] Last Admin: 05/10/18 08:23 Dose: 81 mg Bupropion HCl (Wellbutrin) 150 mg PO BID [facility] Last Admin: 05/10/18 08:22 Dose: 150 mg Clonidine (Catapres) 0.1 mg PO Q4H PRN PRN Reason: Systolic BP > 180 Last Admin: 03/20/18 21:05 Dose: 0.1 mg Furosemide (Lasix) 40 mg PO DAILY-AC [facility] Last Admin: 05/10/18 08:23 Dose: 40 mg Guaifenesin/Dextromethorphan (Robitussin Dm) 10 ml PO 2100 [facility] Last Admin: 05/09/18 19:36 Dose: 10 ml Hydralazine HCl (Apresoline) 10 mg SLOW IVP Q4H PRN PRN Reason: Systolic BP > 180 Last Admin: 03/14/18 17:06 Dose: 10 mg Loperamide HCl (Imodium) 2 mg PER TUBE PRN PRN PRN Reason: Diarrhea/Loose Stools Losartan Potassium (Cozaar) 12.5 mg PO DAILY [facility] Last Admin: 05/10/18 08:23 Dose: Not Given Magnesium Hydroxide (Milk Of Magnesium) 30 ml PER TUBE DAILYPRN PRN PRN Reason: Constipation Mineral Oil/White Petrolatum (Eucerin Cream) 0 gm TOP BIDPRN PRN PRN Reason: Dry Skin Nystatin (Mycostatin Powder) 30 gm TOP BID [facility] Last Admin: 05/10/18 08:23 Dose: 1 applic Ondansetron HCl (Zofran Odt) 4 mg PO Q6H PRN PRN Reason: Nausea/Vomiting Last Admin: 04/03/18 09:09 Dose: 4 mg Ondansetron HCl (Zofran) 4 mg IVP Q6H PRN PRN Reason: Nausea/Vomiting Pantoprazole Sodium (Protonix) 40 mg PO DAILY [facility] Last Admin: 05/10/18 08:22 Dose: 40 mg Phenol (Chloraseptic [place] 180 Ml Bot) 0 ml PO PRN PRN PRN Reason: Sore Throat Potassium Chloride (Klor-Con) 20 meq PO QAM-[facility] Last Admin: 05/10/18 08:22 Dose: 20 meq Senna (Senokot) 2 tab PO HSPRN PRN PRN Reason: Constipation Last Admin: 05/07/18 22:11 Dose: 2 tab Sodium Bicarbonate (Bicarbonate, Sodium) 650 mg PER TUBE .PER PROTOCOL PRN PRN Reason: ENTERAL TUBE OCCLUSION Sodium Chloride (Flush - Normal Saline) 10 ml IVF Q12HR [facility] Last Admin: 05/10/18 08:41 Dose: Not Given Sodium Chloride (Flush - Normal Saline) 10 ml IVF PRN PRN PRN Reason: Saline Flush Last Admin: 04/13/18 05:41 Dose: 10 ml Sodium Chloride ([place] Nasal [place] 0.65%) 0 ml EA NARE QIDPRN PRN PRN Reason: Nasal Congestion
--- NOTE | 2018-05-10 17:17 | PRG ---
DATE OF SERVICE: 05/10/2018 Ms. Sauceda states she is almost able to stand on her own. She was quite verbose today explaining she could not tell me how much she appreciated what everyone h as done for her, she has no recollection at the beginning of her hospitalization. PHYSICAL EXAMINATION: VITAL SIGNS: I have explained to her that she appears to have lost close to 100 pounds. She is afeb rile, heart rates in the 60s, respiratory rate is 18, oximetry is 90 on her trach collar, and 90-94 o n her trach collar. Blood pressure 114/63. LUNGS: Clear. HEART: Regular rhythm. ABDOMEN: Soft. IMPRESSION: 1. Acute on chronic respiratory failure, status post tracheostomy. Clinically, doing well. 2. Deconditioning secondary to massive obesity with weight loss and physical therapy. Her strength is gradually improving. PLAN: Continue supportive care.
[2018-05-10] MEDS: Guaifenesin DM 100-10/5 ML UDCUP PO SCH (20:59)
[2018-05-11] MEDS: buPROPion 75 MG TAB PO SCH ×2 (08:21→20:34)
[2018-05-11] MEDS: Furosemide 40 MG TAB PO SCH (08:22)
[2018-05-11] MEDS: Amiodarone 200 MG TAB PO SCH (08:22)
[2018-05-11] MEDS: Losartan 25 MG TAB PO SCH (08:22)
[2018-05-11] MEDS: Nystatin Powder 15 GM BOT TOP SCH ×2 (08:23→20:35)
[2018-05-11] MEDS: Apixaban 5 MG TAB PO SCH ×2 (08:23→20:34)
[2018-05-11] MEDS: Acetaminophen 650 MG/20.3 ML UDCUP PO PRN (09:10)
--- NOTE | 2018-05-11 10:21 | PRG ---
DATE OF SERVICE: 05/11/2018 SUBJECTIVE: The patient is with physical therapy, tried to transfer from the wheelchair to the commo de today. OBJECTIVE: VITAL SIGNS: Temperature 98.9, pulse 80, respirations 20, O2 94%, blood pressure 120/72. HEENT: Unremarkable. NECK: Trach in good position. LUNGS: Clear. CARDIAC: S1 and S2 regular. ABDOMEN: Soft. EXTREMITIES: No edema. ASSESSMENT: 1. Severe deconditioning. 2. Obesity hypoventilation syndrome requiring tracheostomy. PLAN: Continuing to increase physical therapy as tolerated with hopes of discharge to her [facility] very soon.
--- NOTE | 2018-05-11 11:07 | PDOC.PN ---
- Subjective Encounter Start Date: 05/11/18 Encounter Start Time: 10:00 Subjective: feels better, no sob -: awaiting PT to exercise - Objective Resuscitation Status: Resuscitation Status FULL:Full Resuscitation MAR Reviewed: Yes Vital Signs & Weight: Vital Signs (12 hours) Temp Pulse Resp BP Pulse Ox 05/11/18 07:07 98.9 F 80 22 H 128/72 94 L 05/11/18 06:45 90 16 05/11/18 02:25 95 05/11/18 00:19 99 18 96 Weight Admit Weight 600 lb Weight 337 lb 6.4 oz Most Recent Monitor Data Heart Rate from ECG 73 NIBP 109/61 NIBP BP-Mean 72 Respiration from ECG 29 SpO2 94 I&O: 05/10/18 05/11/18 05/12/18 06:59 06:59 06:59 Intake Total 1160 1680 Output Total 2 Balance 1158 1680 Result Diagrams: 05/10/18 04:23 05/10/18 04:23 Phys Exam - Physical Examination HEENT: PERRLA, moist MMs Neck: no JVD trach+ Respiratory: no wheezing, no rales Cardiovascular: RRR, no significant murmur Gastrointestinal: soft, non-tender, positive bowel sounds Musculoskeletal: no edema, pulses present Neurological: non-focal, moves all 4 limbs Psychiatric: A&O x 3 Dx/Plan (1) Acute and chronic respiratory failure Code(s): J96.20 - ACUTE AND CHR RESP FAILURE, UNSP W HYPOXIA OR HYPERCAPNIA Status: Chronic Qualifiers: Respiratory failure complication: hypoxia and hypercapnia Qualified Code(s) : J96.21 - Acute and chronic respiratory failure with hypoxia; J96.22 - Acute and chronic respiratory failure with hypercapnia; J96.22 - Acute and chronic respiratory failure with hypercapnia; J96.22 - Acute and chronic respiratory failure with hypercapnia Comment: Stable on trach collar. (2) CAROL (obstructive sleep apnea) Code(s): G47.33 - OBSTRUCTIVE SLEEP APNEA (ADULT) (PEDIATRIC) Status: Chronic (3) Afib Code(s): I48.91 - UNSPECIFIED ATRIAL FIBRILLATION Status: Chronic Qualifiers: Atrial fibrillation type: paroxysmal Qualified Code(s): I48.0 - Paroxysmal atrial fibrillation Comment: Rate controlled. Continue ASA and Amiodarone. ELIQUIS (4) Acute on chronic diastolic (congestive) heart failure Code(s): I50.33 - ACUTE ON CHRONIC DIASTOLIC (CONGESTIVE) HEART FAILURE Status : Chronic (5) Pickwickian syndrome Code(s): E66.2 - MORBID (SEVERE) OBESITY WITH ALVEOLAR HYPOVENTILATION Status : Chronic Comment: s/p trach collar. (6) Status post tracheostomy Code(s): Z93.0 - TRACHEOSTOMY STATUS Status: Chronic Comment: Had procedure on 03/09/18. Stable. (7) S/P percutaneous endoscopic gastrostomy (PEG) tube placement Code(s): Z93.1 - GASTROSTOMY STATUS Status: Chronic Comment: Had procedure on 03/09/18. NO LONGER BEING USED. TAKING PO (8) Severe muscle deconditioning Code(s): R29.898 - OT SYMPTOMS AND SIGNS INVOLVING THE MUSCULOSKELETAL SYSTEM Status: Acute Comment: slowly improving - Plan may dc anytime if family can manage her at home -: cm will be setting up hosp bed and other req -: on eboni pitt cozaar -: trach care to be taught to family -: tolerating oral diet well * . Review of Systems - Medications/Allergies Allergies/Adverse Reactions: Allergies Allergy/AdvReac Type Severity Reaction Status Date / Time No Known Drug Allergies Allergy Verified 03/08/18 14:16 Medications: Current Medications Acetaminophen (Tylenol Elixir) 1,000 mg PO Q6H PRN PRN Reason: Headache/Fever or Pain Last Admin: 05/11/18 09:10 Dose: 1,000 mg Al Hydroxide/Mg Hydroxide (Maalox) 15 ml PER TUBE Q4H PRN PRN Reason: Heartburn or Indigestion Albuterol/Ipratropium (Duoneb) 3 ml NEB [id number] [facility] Last Admin: 05/11/18 06:45 Dose: 3 ml Amiodarone HCl (Cordarone) 200 mg PO DAILY [facility] Last Admin: 05/11/18 08:22 Dose: 200 mg Lipase/Protease/[place] ([place] [id number]) 1 cap FS .PER PROTOCOL PRN PRN Reason: TUBE OCCLUSION PROTOCOL Apixaban (Eliquis) 5 mg PO BID [facility] Last Admin: 05/11/18 08:23 Dose: 5 mg Artificial Tears (Tears Renewed 15ml Bottle) 0 drop EA EYE PRN PRN PRN Reason: Dry Eyes Aspirin (Aspirin Chewable) 81 mg PO DAILY [facility] Last Admin: 05/11/18 08:22 Dose: 81 mg Bupropion HCl (Wellbutrin) 150 mg PO BID [facility] Last Admin: 05/11/18 08:21 Dose: 150 mg Clonidine (Catapres) 0.1 mg PO Q4H PRN PRN Reason: Systolic BP > 180 Last Admin: 03/20/18 21:05 Dose: 0.1 mg Furosemide (Lasix) 40 mg PO DAILY[facility] Last Admin: 05/11/18 08:22 Dose: 40 mg Guaifenesin/Dextromethorphan (Robitussin Dm) 10 ml PO 2100 [facility] Last Admin: 05/10/18 20:59 Dose: 10 ml Hydralazine HCl (Apresoline) 10 mg SLOW IVP Q4H PRN PRN Reason: Systolic BP > 180 Last Admin: 03/14/18 17:06 Dose: 10 mg Loperamide HCl (Imodium) 2 mg PER TUBE PRN PRN PRN Reason: Diarrhea/Loose Stools Losartan Potassium (Cozaar) 12.5 mg PO DAILY [facility] Last Admin: 05/11/18 08:22 Dose: 12.5 mg Magnesium Hydroxide (Milk Of Magnesium) 30 ml PER TUBE DAILYPRN PRN PRN Reason: Constipation Mineral Oil/White Petrolatum (Eucerin Cream) 0 gm TOP BIDPRN PRN PRN Reason: Dry Skin Nystatin (Mycostatin Powder) 30 gm TOP BID [facility] Last Admin: 05/11/18 08:23 Dose: 1 applic Ondansetron HCl (Zofran Odt) 4 mg PO Q6H PRN PRN Reason: Nausea/Vomiting Last Admin: 04/03/18 09:09 Dose: 4 mg Ondansetron HCl (Zofran) 4 mg IVP Q6H PRN PRN Reason: Nausea/Vomiting Pantoprazole Sodium (Protonix) 40 mg PO DAILY [facility] Last Admin: 05/11/18 08:23 Dose: 40 mg Phenol (Chloraseptic [place] 180 Ml Bot) 0 ml PO PRN PRN PRN Reason: Sore Throat Potassium Chloride (Klor-Con) 20 meq PO QAM-WM [facility] Last Admin: 05/11/18 08:22 Dose: 20 meq Senna (Senokot) 2 tab PO HSPRN PRN PRN Reason: Constipation Last Admin: 05/07/18 22:11 Dose: 2 tab Sodium Bicarbonate (Bicarbonate, Sodium) 650 mg PER TUBE .PER PROTOCOL PRN PRN Reason: ENTERAL TUBE OCCLUSION Sodium Chloride (Flush - Normal Saline) 10 ml IVF Q12HR [facility]IKE Last Admin: 05/11/18 08:23 Dose: Not Given Sodium Chloride (Flush - Normal Saline) 10 ml IVF PRN PRN PRN Reason: Saline Flush Last Admin: 04/13/18 05:41 Dose: 10 ml Sodium Chloride ([place] Nasal [place] 0.65%) 0 ml EA NARE QIDPRN PRN PRN Reason: Nasal Congestion
[2018-05-11] MEDS: Guaifenesin DM 100-10/5 ML UDCUP PO SCH (20:39)
[2018-05-12] MEDS: Acetaminophen 650 MG/20.3 ML UDCUP PO PRN (08:39)
[2018-05-12] MEDS: buPROPion 75 MG TAB PO SCH ×2 (08:41→20:31)
[2018-05-12] MEDS: Losartan 25 MG TAB PO SCH (08:41)
[2018-05-12] MEDS: Apixaban 5 MG TAB PO SCH ×2 (08:41→20:31)
[2018-05-12] MEDS: Furosemide 40 MG TAB PO SCH (08:41)
[2018-05-12] MEDS: Amiodarone 200 MG TAB PO SCH (08:42)
[2018-05-12] MEDS: Nystatin Powder 15 GM BOT TOP SCH ×2 (08:42→20:32)
--- NOTE | 2018-05-12 09:36 | PRG ---
DATE OF SERVICE: 05/12/2018 She is doing surprisingly well. She is very motivated about possible discharge to home to be with he r son in [place] tomorrow. PHYSICAL EXAMINATION: VITAL SIGNS: Temperature is 98.3, pulse 81, respirations 20, O2 saturation 94%, blood pressure 116/8 8. Last recorded weight was 336 pounds, that is very profound given that her admission weight was pr obably about 450 pounds. HEENT: Unremarkable. NECK: Trach in good position. LUNGS: Clear. CARDIOVASCULAR: S1, S2 regular. ABDOMEN: Soft. EXTREMITIES: No edema. ASSESSMENT: 1. Chronic respiratory failure secondary to obesity hypoventilation syndrome. 2. The patient is anticoagulated for presumed possible pulmonary embolism at the time of admission - she had elevated pulmonary artery pressures and was felt to be in need of anticoagulation per Cardio logy: 3. Status post prolonged mechanical ventilation. PLAN: She is stable for discharge. I met with bottle caser yesterday regarding the supplies she nee ds at home. I would feel more comfortable with her being on an oxygenated trach collar. I told the patient this tracheostomy will need to be changed out about every 3 months. She needs to go home wit h cannula supplies. Her family probably needs to be taught trach care before she is discharged. I w ould be happy to change out her trach if transportation could be arranged from [place] back to here. Otherwise, she will need to get follow up in [place].
[2018-05-12 10:16] VITALS: BMI 57.7
--- NOTE | 2018-05-12 12:46 | PDOC.PN ---
- Subjective Encounter Start Date: 05/12/18 Encounter Start Time: 11:20 Subjective: awake, feels better - Objective Resuscitation Status: Resuscitation Status FULL:Full Resuscitation MAR Reviewed: Yes Vital Signs & Weight: Vital Signs (12 hours) Temp Pulse Resp BP Pulse Ox 05/12/18 08:40 98.3 F 81 22 H 94 L 05/12/18 07:21 98.3 F 81 22 H 116/68 94 L 05/12/18 06:37 90 16 Weight Admit Weight 600 lb Weight 336 lb 6.806 oz Most Recent Monitor Data Heart Rate from ECG 73 NIBP 109/61 NIBP BP-Mean 72 Respiration from ECG 29 SpO2 94 I&O: 05/11/18 05/12/18 05/13/18 06:59 06:59 06:59 Intake Total 1680 1200 Output Total 1 Balance 1680 1199 Result Diagrams: 05/10/18 04:23 05/10/18 04:23 Phys Exam - Physical Examination HEENT: PERRLA, moist MMs Neck: no JVD, supple trach+ Respiratory: no wheezing, no rales Cardiovascular: RRR, no significant murmur Gastrointestinal: soft, non-tender, positive bowel sounds Musculoskeletal: pulses present, edema present Neurological: non-focal, moves all 4 limbs Psychiatric: A&O x 3 Dx/Plan (1) Acute and chronic respiratory failure Code(s): J96.20 - ACUTE AND CHR RESP FAILURE, UNSP W HYPOXIA OR HYPERCAPNIA Status: Chronic Qualifiers: Respiratory failure complication: hypoxia and hypercapnia Qualified Code(s) : J96.21 - Acute and chronic respiratory failure with hypoxia; J96.22 - Acute and chronic respiratory failure with hypercapnia; J96.22 - Acute and chronic respiratory failure with hypercapnia; J96.22 - Acute and chronic respiratory failure with hypercapnia Comment: Stable on trach collar. (2) CAROL (obstructive sleep apnea) Code(s): G47.33 - OBSTRUCTIVE SLEEP APNEA (ADULT) (PEDIATRIC) Status: Chronic (3) Afib Code(s): I48.91 - UNSPECIFIED ATRIAL FIBRILLATION Status: Chronic Qualifiers: Atrial fibrillation type: paroxysmal Qualified Code(s): I48.0 - Paroxysmal atrial fibrillation Comment: in sinus, Continue ASA and Amiodarone. ELIQUIS (4) Acute on chronic diastolic (congestive) heart failure Code(s): I50.33 - ACUTE ON CHRONIC DIASTOLIC (CONGESTIVE) HEART FAILURE Status : Chronic (5) Pickwickian syndrome Code(s): E66.2 - MORBID (SEVERE) OBESITY WITH ALVEOLAR HYPOVENTILATION Status : Chronic Comment: s/p trach collar. (6) Status post tracheostomy Code(s): Z93.0 - TRACHEOSTOMY STATUS Status: Chronic Comment: Had procedure on 03/09/18. Stable. (7) S/P percutaneous endoscopic gastrostomy (PEG) tube placement Code(s): Z93.1 - GASTROSTOMY STATUS Status: Chronic Comment: Had procedure on 03/09/18. NO LONGER BEING USED. TAKING PO (8) Severe muscle deconditioning Code(s): R29.898 - OTH SYMPTOMS AND SIGNS INVOLVING THE MUSCULOSKELETAL SYSTEM Status: Acute Comment: slowly improving - Plan arrangements are being made including hosp bed/trach supplies etc for disch -: -arge plan to home. -: Trach care is being taught to patient and family needs to learn -: on yoandy dillard cozaar, nebs -: may dc anytime if arrangements for dc are ready * . Review of Systems - Medications/Allergies Allergies/Adverse Reactions: Allergies Allergy/AdvReac Type Severity Reaction Status Date / Time No Known Drug Allergies Allergy Verified 03/08/18 14:16 Medications: Current Medications Acetaminophen (Tylenol Elixir) 1,000 mg PO Q6H PRN PRN Reason: Headache/Fever or Pain Last Admin: 05/12/18 08:39 Dose: 1,000 mg Al Hydroxide/Mg Hydroxide (Maalox) 15 ml PER TUBE Q4H PRN PRN Reason: Heartburn or Indigestion Albuterol/Ipratropium (Duoneb) 3 ml NEB [id number] [facility] Last Admin: 05/12/18 06:37 Dose: 3 ml Amiodarone HCl (Cordarone) 200 mg PO DAILY [facility] Last Admin: 05/12/18 08:42 Dose: 200 mg Lipase/Protease/Amylase ([place] [id number]) 1 cap FS .PER PROTOCOL PRN PRN Reason: TUBE OCCLUSION PROTOCOL Apixaban (Eliquis) 5 mg PO BID [facility] Last Admin: 05/12/18 08:41 Dose: 5 mg Artificial Tears (Tears Renewed 15ml Bottle) 0 drop EA EYE PRN PRN PRN Reason: Dry Eyes Aspirin (Aspirin Chewable) 81 mg PO DAILY [facility] Last Admin: 05/12/18 08:41 Dose: 81 mg Bupropion HCl (Wellbutrin) 150 mg PO BID [facility] Last Admin: 05/12/18 08:41 Dose: 150 mg Clonidine (Catapres) 0.1 mg PO Q4H PRN PRN Reason: Systolic BP > 180 Last Admin: 03/20/18 21:05 Dose: 0.1 mg Furosemide (Lasix) 40 mg PO DAILY-AC [facility] Last Admin: 05/12/18 08:41 Dose: 40 mg Guaifenesin/Dextromethorphan (Robitussin Dm) 10 ml PO 2100 [facility] Last Admin: 05/11/18 20:39 Dose: 10 ml Hydralazine HCl (Apresoline) 10 mg SLOW IVP Q4H PRN PRN Reason: Systolic BP > 180 Last Admin: 03/14/18 17:06 Dose: 10 mg Loperamide HCl (Imodium) 2 mg PER TUBE PRN PRN PRN Reason: Diarrhea/Loose Stools Losartan Potassium (Cozaar) 12.5 mg PO DAILY [facility] Last Admin: 05/12/18 08:41 Dose: 12.5 mg Magnesium Hydroxide (Milk Of Magnesium) 30 ml PER TUBE DAILYPRN PRN PRN Reason: Constipation Mineral Oil/White Petrolatum (Eucerin Cream) 0 gm TOP BIDPRN PRN PRN Reason: Dry Skin Nystatin (Mycostatin Powder) 30 gm TOP BID [facility] Last Admin: 05/12/18 08:42 Dose: 1 applic Ondansetron HCl (Zofran Odt) 4 mg PO Q6H PRN PRN Reason: Nausea/Vomiting Last Admin: 04/03/18 09:09 Dose: 4 mg Ondansetron HCl (Zofran) 4 mg IVP Q6H PRN PRN Reason: Nausea/Vomiting Pantoprazole Sodium (Protonix) 40 mg PO DAILY [facility] Last Admin: 05/12/18 08:41 Dose: 40 mg Phenol (Chloraseptic [place] 180 Ml Bot) 0 ml PO PRN PRN PRN Reason: Sore Throat Potassium Chloride (Klor-Con) 20 meq PO QAM-WM [facility] Last Admin: 05/12/18 08:42 Dose: 20 meq Senna (Senokot) 2 tab PO HSPRN PRN PRN Reason: Constipation Last Admin: 05/07/18 22:11 Dose: 2 tab Sodium Bicarbonate (Bicarbonate, Sodium) 650 mg PER TUBE .PER PROTOCOL PRN PRN Reason: ENTERAL TUBE OCCLUSION Sodium Chloride (Flush - Normal Saline) 10 ml IVF Q12HR [facility] Last Admin: 05/12/18 08:43 Dose: Not Given Sodium Chloride (Flush - Normal Saline) 10 ml IVF PRN PRN PRN Reason: Saline Flush Last Admin: 04/13/18 05:41 Dose: 10 ml Sodium Chloride ([place] Nasal [place] 0.65%) 0 ml EA NARE QIDPRN PRN PRN Reason: Nasal Congestion
[2018-05-12] MEDS: Guaifenesin DM 100-10/5 ML UDCUP PO SCH (20:31)
[2018-05-13 05:45] LABS: Hemoglobin 11.4 g/dL (12.0-16.0); Platelet Count 123 thou/uL (130-400)
[2018-05-13 07:35] VITALS: BP 142/76; TEMP 99.2
[2018-05-13] MEDS: Acetaminophen 650 MG/20.3 ML UDCUP PO PRN (09:53)
[2018-05-13] MEDS: Losartan 25 MG TAB PO SCH (09:59)
[2018-05-13] MEDS: Furosemide 40 MG TAB PO SCH (10:00)
[2018-05-13] MEDS: Apixaban 5 MG TAB PO SCH (10:00)
[2018-05-13] MEDS: buPROPion 75 MG TAB PO SCH (10:01)
[2018-05-13] MEDS: Amiodarone 200 MG TAB PO SCH (10:01)
[2018-05-13] MEDS: Nystatin Powder 15 GM BOT TOP SCH (10:02)
--- NOTE | 2018-05-13 10:41 | PRG ---
DATE OF SERVICE: 05/13/2018 The patient is scheduled to go home later today. PHYSICAL EXAMINATION: VITAL SIGNS: Stable. NECK: Trach site is clear. LUNGS: Clear. CARDIAC: S1 and S2 regular. ABDOMEN: Soft. EXTREMITIES: No edema. ASSESSMENT: 1. Status post prolonged hospitalization related to obesity hypoventilation syndrome. 2. Morbid obesity. PLAN: 1. As per my note yesterday, she will need trach change about every 3 months. I do not know if this will be accomplished here or in [place]. If it is here, I will be happy to help. 2. No further recommendations. I am available as needed.
--- NOTE | 2018-05-14 00:07 | DIS ---
DATE OF ADMISSION: 02/26/2018 DATE OF DISCHARGE: 05/13/2018 PRIMARY CARE PROVIDER: None. DISCHARGE DIAGNOSES: 1. Acute on chronic hypercapnic respiratory failure. 2. Acute on chronic diastolic heart failure. 3. Pickwickian syndrome. 4. Morbid obesity. 5. Physical deconditioning. 6. Paroxysmal atrial fibrillation. CONDITION OF PATIENT ON THE DAY OF DISCHARGE: Stable. I assessed Ms. Sauceda on the day of discharge . She denies any chest pain or shortness of breath. Vital signs are stable. S1 and S2 are heard, r egular. Lungs are clear to auscultation bilaterally. DISCHARGE MEDICATIONS: DuoNeb q.6 hours, Cozaar 12.5 mg daily, K-Dur 20 mEq daily, amiodarone 200 mg daily, Eliquis 5 mg 2 times a day, aspirin 81 mg daily, Lasix 40 mg daily, and Wellbutrin 150 mg 2 t imes a day. CONSULTATIONS DURING THIS HOSPITALIZATION: Pulmonary and Critical Care Medicine, Dr. Rice; Cardio logy, Dr. Lubin; Hematology/Oncology, Dr. Gaona; Nephrology, Dr. Allred; and General Surgery, Dr. Barclay. HOSPITAL COURSE: Ms. Sauceda is a pleasant 62-year-old lady who was admitted to [facility] on 02/26/2018 following transfer from [facility]. Please refer to history and physical note by Dr. Beauchamp dated 02/26/2018 for further information. She was in acute on chronic hypercapnic respiratory failure. She was initially treated with BiPAP, subsequently intu bated and admitted to Critical Care Unit. BNP was elevated at 911. A 2D echocardiogram on 8 showed left ventricular ejection fraction of 65%-70% with right ventricle volume and pressure overl oad findings. Repeat echocardiogram on 03/02/2018 showed left ventricular ejection fraction of 65%-7 0%, severely enlarged right ventricle cavity and PA systolic pressure elevated at 52 mmHg. We were u nable to image for pulmonary embolism due to patient's morbid obesity. On 03/09/2018, she underwent tracheostomy and PEG placement. She was also treated with Lasix drip for volume overload initially. She was started on PEG feeds. On 04/21/2018, she had a modified barium swallow which did not show an y penetration or aspiration. Oral feeds were started. Case management was actively involved in disc harge planning. On 05/13/2018, patient is being discharged to her son's home. On 05/13/2018, she has hemoglobin 11.4, hematocrit 36.2, and platelet count 123,000. She will need tracheostomy change every 3 months, according to Pulmonary Critical Care Medicine Cricket koehler. DISCHARGE DESTINATION: Home. TOTAL AMOUNT OF TIME SPENT COORDINATING THIS DISCHARGE: 33 minutes.
--- NOTE | 2018-05-14 15:56 | PQF ---
ROSMERY HINTON LUCIUS SANDOVAL [id number] CLINICAL DOCUMENTATION CLARIFICATION FORM: POST DISCHARGE Addendum to original discharge summary date: ____ Late entry note date: __ Your assistance is needed to assign the appropriate codes regarding UTI documented in progress note starting 04/07.. UTI is not mentioned in your d/c summary and clarification is needed. Please exercise your independent, professional judgment in responding to the clarification form. Clinical indicators are provided on the bottom of this form for your review Please check appropriate box(s): [ ] UTI please specify if due to or related to (as applicable): [ ] Indwelling catheter [ ] Self-catheterization [ ] Suprapubic catheter [ ] Unable to determine etiology UTI Site: [ ] Kidney [ ] Ureter [ ] Bladder [ ] Urethra [ ] Unable to determine Specify Organism (if known): [ ] Unknown organism [ ] Contaminated urine specimen without UTI [ ] Other diagnosis [ X ] Unable to determine In addition, please specify: Present on Admission (POA): [ ] Yes [ ] No [ ] Unable to determine For continuity of documentation, please document condition throughout progress notes and discharge summary. Thank You. CLINICAL INDICATORS - SIGNS / SYMPTOMS / LABS Positive urinalysis Hematuria Documentation: UTI RISK FACTORS indwelling catheter Debility / skilled nursing resident TREATMENT: Antibiotics IVF Tolbert cath removed / changed (This form is maintained as a part of the permanent medical record) 2014 [employer]. All Rights Reserved Ceci [email or web address] [phone] [email or web address]
--- NOTE | 2018-05-14 16:04 | PQF ---
ROSMERY HINTON LUCIUS SANDOVAL [id number] CLINICAL DOCUMENTATION CLARIFICATION FORM: POST DISCHARGE Addendum to original discharge summary date: ____ Late entry note date: __ Your assistance is needed to clarify the diagnosis of sepsis as documentated in the progress notes on 04/07. d/c summary does not mentin the diagnosis of sepsis and clarification is needed. Please exercise your independent, professional judgment in responding to the clarification form. Clinical indicators are provided on the bottom of this form for your review Please check appropriate box(es): [ ] Sepsis due to: (Pna, UTI, gangrenous gall bladder, etc.) Due : to: ( ) koch cath [ ] Device (please specify) [ ] Localized infection without sepsis [ ] Other diagnosis [ X ] Unable to determine In addition, please specify: Present on Admission (POA): [ ] Yes [ ] No [ ] Unable to determine For continuity of documentation, please document condition throughout progress notes and discharge summary. Thank You. CLINICAL INDICATORS - SIGNS / SYMPTOMS / LABS Altered mental status Metabolic acidosis Lactic Acid >2mmol/L, Increase BUN/[place], decrease GFR, thrombocytopenia-plts <100k pre-renal azotemia RISK FACTORS UTI debility obesity TREATMENTS: Initiation Sepsis Protocol Daily CBC Blood/sputum/wound cultures (This form is maintained as a part of the permanent medical record) 2014 [employer]. All Rights Reserved [email or web address] [phone] [email or web address]
== END 2018-05-13 16:03 | disposition home or self-care (01) | DRG 4 ==
LOC: ERS 00:51 → CCU 02:05 → IMCU/EMU 04-10 15:03 → T4-A 04-26 13:32
PROVIDERS: ADMIT Family Medicine; ATTEND Family Medicine
PROC: 5A1955Z Respiratory Ventilation, Greater than 96 Consecutive Hours (ICD-10-PCS; principal; 2018-02-26)
PROC: 5A09357 Assistance with Respiratory Ventilation, Less than 24 Consecutive Hours, Continuous Positive Airway Pressure (ICD-10-PCS; 2018-02-26)
PROC: 0BH17EZ Insertion of Endotracheal Airway into Trachea, Via Natural or Artificial Opening (ICD-10-PCS; 2018-02-26)
PROC: 0B113F4 Bypass Trachea to Cutaneous with Tracheostomy Device, Percutaneous Approach (ICD-10-PCS; 2018-03-09)
PROC: 0DH63UZ Insertion of Feeding Device into Stomach, Percutaneous Approach (ICD-10-PCS; 2018-03-09)
PROC: 3E0G76Z Introduction of Nutritional Substance into Upper GI, Via Natural or Artificial Opening (ICD-10-PCS; 2018-03-09)
DX: J96.21 Acute and chronic respiratory failure with hypoxia (principal); I50.33 Acute on chronic diastolic (congestive) heart failure; I26.99 Other pulmonary embolism without acute cor pulmonale; Z68.45 Body mass index [BMI] 70 or greater, adult; E66.2 Morbid (severe) obesity with alveolar hypoventilation; N39.0 Urinary tract infection, site not specified; N17.9 Acute kidney failure, unspecified; I24.8 Other forms of acute ischemic heart disease; D69.3 Immune thrombocytopenic purpura; A41.9 Sepsis, unspecified organism; I47.2 Ventricular tachycardia; E87.0 Hyperosmolality and hypernatremia; D68.32 Hemorrhagic disorder due to extrinsic circulating anticoagulants; N18.3 Chronic kidney disease, stage 3 (moderate); I48.0 Paroxysmal atrial fibrillation; I27.29 Other secondary pulmonary hypertension; I50.813 Acute on chronic right heart failure; E87.6 Hypokalemia; R39.2 Extrarenal uremia; F32.9 Major depressive disorder, single episode, unspecified; B95.5 Unspecified streptococcus as the cause of diseases classified elsewhere; M17.11 Unilateral primary osteoarthritis, right knee; B95.2 Enterococcus as the cause of diseases classified elsewhere; N36.8 Other specified disorders of urethra; Y84.6 Urinary catheterization as the cause of abnormal reaction of the patient, or of later complication, without mention of misadventure at the time of the procedure; I87.2 Venous insufficiency (chronic) (peripheral); R23.3 Spontaneous ecchymoses; J96.22 Acute and chronic respiratory failure with hypercapnia; T45.515A Adverse effect of anticoagulants, initial encounter; Y92.239 Unspecified place in hospital as the place of occurrence of the external cause; Z91.19 Patient's noncompliance with other medical treatment and regimen; Z99.81 Dependence on supplemental oxygen
CPT/HCPCS: 31500; 36415; 36416; 51702; 71045; 74230; 80048; 80053; 80069; 80202; 81003; 81015; 82542; 82553; 82565; 82805; 83605; 83690; 83735; 83880; 84100; 84132; 84484; 85007; 85014; 85018; 85025; 85027; 85049; 85379; 85520; 85610; 85730; 87040; 87070; 87077; 87086; 87186; 87205; 93005; 93010; 93306; 93970; 94002; 94003; 94640; 94644; 94660; 96361; 96365; 96368; 96375; A4216; C1713; C9113; G8978-GP-CL; G8978-GP-CM; G8978-GP-CN; G8979-GP-CK; G8979-GP-CL; G8987-GO-CL; G8987-GO-CM; G8988-GO-CJ; G8988-GO-CK; G8988-GO-CL; G8996-GN-CJ; G8996-GN-CL; G8996-GN-CN; G8997-GN-CH; G8997-GN-CJ; G8997-GN-CL; J0282; J0360; J0696; J1120; J1160; J1644; J1650; J1940; J1956; J2001; J2060; J2250; J2270; J2704; J3010; J3370; J3475; J3480; J7050; J7070; J7611; J7620; Q0162; S0028